=== PATIENT | male | born 1975 | race African-American/Black ===

== ENCOUNTER 2016-11-05 18:13 | Emergency (ER) | payer MEDICARE, MEDICAID ==
[~2016-11-05] VITALS: Ht 182.9 cm; Wt 100.0 kg
[~2016-11-05 18:13] MED LIST: VIST25CA PO
[2016-11-05 18:15] VITALS: BP 140/80; PULSE 99; RESP 14; TEMP 98.4; O2SAT 97
--- NOTE | 2016-11-05 20:09 | PD ---
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 For the last 2 weeks the patient has had a cough productive of yellowish sputum. He states that one month ago he was having some hemoptysis, however has not had any since then. He is complaining of some chest tightness. No fevers or chills. Emesis is nonbloody. He is also complaining of pain in his left year and diminished hearing in his left ear. He has not had a bowel movement in several days. Patient is also complaining of some blurry vision and shortness of breath. No focal neurologic deficits. The patient has an appointment with her primary care physician in 2 days where he states he will be restarted on his antiretroviral therapy. [facility] Social History Alcohol Use: Yes Tobacco Use: Yes Allergies-Medications (Allergen,Severity, Reaction): Coded Allergies: Albuterol (Verified Allergy, Intermediate, Hives, 11/05/16) shortness of breath Reported Meds & Prescriptions Reported Meds & Active Scripts Active Augmentin (Amoxicillin-Clavulanate) 875-125 mg Tab 875 Mg PO BID 7 Days not for use in CrCl <30 ml/min. Vistaril (Hydroxyzine Pamoate) 25 Mg Cap 25 Mg PO HS Review of Systems Except as stated in HPI: all other systems reviewed are Neg Physical Exam Narrative GENERAL: Well-developed, well-nourished, comfortable, no acute distress. SKIN: Warm and dry. Several tiny papules on left arm, no warmth or erythema. Well-healed surgical scar on right head which the patient states his a port where he received chemotherapy for his acute lymphoma in his neck. HEAD: Atraumatic. Normocephalic. EYES: Pupils equal and round. No scleral icterus. No injection or drainage. ENT: Mucous membranes pink and moist. NECK: Trachea midline. No JVD. No nuchal rigidity. CARDIOVASCULAR: Regular rate and rhythm. RESPIRATORY: No accessory muscle use. Clear to auscultation. Breath sounds equal bilaterally. GASTROINTESTINAL: Abdomen soft, non-tender, nondistended. MUSCULOSKELETAL: No obvious deformities. No clubbing. No cyanosis. No edema. NEUROLOGICAL: Awake and alert. No obvious cranial nerve deficits. Motor grossly within normal limits. Normal speech. No focal deficit. PSYCHIATRIC: Appropriate mood and affect; insight and judgment normal. Data Data Last Documented VS Vital Signs Date Time Temp Pulse Resp B/P Pulse Ox O2 Delivery O2 Flow Rate FiO2 11/05/16 21:20 99 Room Air 11/05/16 21:15 21 11/05/16 18:15 98.4 99 140/80 Orders Electrocardiogram (11/05/16 20:04) Ckmb (Isoenzyme) Profile (11/05/16 20:04) Complete Blood Count With Diff (11/05/16 20:04) Comprehensive Metabolic Panel (11/05/16 20:04) Prothrombin Time / Inr (Pt) (11/05/16 20:04) Act Partial Throm Time (Ptt) (11/05/16 20:04) Troponin I (11/05/16 20:04) Chest, Single Ap (11/05/16 20:04) Ecg Monitoring (11/05/16 20:04) Iv Access Insert/Monitor (11/05/16 20:04) Oximetry (11/05/16 20:04) Sodium Chloride 0.9% Flush (Ns Flush) (11/05/16 20:15) Influenzae A/B Antigen (11/05/16 20:07) Ct Brain W/O Iv Contrast(Rout) (11/05/16 ) Blood Culture (11/05/16 20:11) CKMB (11/05/16 20:55) CKMB% (11/05/16 20:55) Amoxicil-Clavulanate (Augmentin) (11/05/16 22:15) Labs Laboratory Tests Test 11/05/16 20:55 White Blood Count 4.0 TH/MM3 Red Blood Count 3.87 MIL/MM3 Hemoglobin 12.2 GM/DL Hematocrit 36.4 % Mean Corpuscular Volume 94.2 FL Mean Corpuscular Hemoglobin 31.6 PG Mean Corpuscular Hemoglobin 33.5 % Concent Red Cell Distribution Width 14.8 % Platelet Count 105 TH/MM3 Mean Platelet Volume 10.1 FL Neutrophils (%) (Auto) 55.9 % Lymphocytes (%) (Auto) 23.9 % Monocytes (%) (Auto) 10.3 % Eosinophils (%) (Auto) 9.6 % Basophils (%) (Auto) 0.3 % Neutrophils # (Auto) 2.2 TH/MM3 Lymphocytes # (Auto) 1.0 TH/MM3 Monocytes # (Auto) 0.4 TH/MM3 Eosinophils # (Auto) 0.4 TH/MM3 Basophils # (Auto) 0.0 TH/MM3 CBC Comment DIFF FINAL Differential Comment Prothrombin Time 10.5 SEC Prothromb Time International 1.0 RATIO Ratio Activated Partial 26.5 SEC Thromboplast Time Sodium Level 141 MEQ/L Potassium Level 3.7 MEQ/L Chloride Level 106 MEQ/L Carbon Dioxide Level 28.6 MEQ/L Anion Gap 6 MEQ/L Blood Urea Nitrogen 17 MG/DL Creatinine 1.21 MG/DL Estimat Glomerular Filtration 81 ML/MIN Rate Random Glucose 97 MG/DL Calcium Level 8.6 MG/DL Total Bilirubin 0.3 MG/DL Aspartate Amino Transf 17 U/L (AST/SGOT) Alanine Aminotransferase 17 U/L (ALT/SGPT) Alkaline Phosphatase 95 U/L Total Creatine Kinase 166 U/L Creatine Kinase MB 1.6 NG/ML Troponin I LESS THAN 0.02 NG/ML Total Protein 7.6 GM/DL Albumin 3.5 GM/DL [facility] Medical Decision Making Medical Screen Exam Complete: Yes Emergency Medical Condition: Yes Interpretation(s) EKG: Sinus, rate 83, normal axis, normal intervals, no acute ischemic abnormality. Differential Diagnosis Pneumonia, PCP pneumonia, influenza, viral illness, dehydration, intracranial normality Narrative Course Vital signs reviewed. CBC shows WBC 4.0, hemoglobin 12.2, hematocrit 36.4, platelets 105. CMP is unremarkable. Cardiac enzymes are negative. Chest x-ray shows no acute disease. CT head shows right ventriculostomy tube in place, no acute intracranial abnormality, sinus disease. Influenza is negative. Patient is resting comfortably. He was made aware of all findings. He will be started on Augmentin for sinusitis. He has an appointment with his primary care physician in 2 days. He is stable for discharge home with outpatient follow-up. He is informed on when to return to the emergency department. He verbalizes understanding and agreement with plan. Diagnosis Primary Impression: Sinusitis Qualified Code: J01.90 - Acute sinusitis, recurrence not specified, unspecified location Referrals: Primary Care Physician 2 days Additional Instructions: Follow-up with your primary care physician in 2 days as scheduled. Return to the emergency department forcing symptoms or any other concerns. Scripts Amoxicillin-Clavulanate (Augmentin)875-125 mg [id number] Mg PO BID 7 Days Ref 0 not for use in CrCl <30 ml/min. Prov:Lee Oliveira MD 11/05/16 Disposition: 01 DISCHARGE HOME Condition: Stable Lee Oliveira MD Nov 05, 2016 20:09
[2016-11-05] MEDS ORDERED: SODIUM CHLORIDE 0.9% FLUSH 5 ML FLUSH IVF PRN (20:15)
--- NOTE | 2016-11-05 20:34 | RADRPT ---
EXAM DATE/TIME: 11/05/2016 20:15 [facility] COMPARISON: No previous studies available for comparison. INDICATIONS : Chest pain and cough. MEDICAL HISTORY : None. SURGICAL HISTORY : None. ENCOUNTER: Initial ACUITY: 2 weeks PAIN SCORE: 5/10 LOCATION: Bilateral chest FINDINGS: A single view of the chest demonstrates the lungs to be symmetrically aerated without evidence of mas s, infiltrate or effusion. The cardiomediastinal contours are unremarkable. Osseous structures are intact. CONCLUSION: No acute disease. Jose Dean MD on November 05, 2016 at 20:33 Board Certified Radiologist. This report was verified electronically.
--- NOTE | 2016-11-05 20:41 | RADRPT ---
EXAM DATE/TIME: 11/05/2016 20:28 [facility] COMPARISON: No previous studies available for comparison. INDICATIONS : Headaches with left ear pain past 3 days. RADIATION DOSE: 44.81 CTDIvol (mGy) MEDICAL HISTORY : HIV. Lymphoma. SURGICAL HISTORY : None. ENCOUNTER: Initial ACUITY: 3 days PAIN SCALE: 2/10 LOCATION: Left cranial TECHNIQUE: Multiple contiguous axial images were obtained of the head. Using automated exposure control and adj ustment of the mA and/or kV according to patient size, radiation dose was kept as low as reasonably a chievable to obtain optimal diagnostic quality images. FINDINGS: CEREBRUM: There is a ventriculostomy tube in place with a right frontal approach with the tip seen at the right lateral ventricle. The ventricles are normal for age. No evidence of midline shift, mass lesion, he morrhage or acute infarction. No extra-axial fluid collections are seen. POSTERIOR FOSSA: The cerebellum and brainstem are intact. The 4th ventricle is midline. The cerebellopontine angle i s unremarkable. EXTRACRANIAL: The visualized portion of the orbits is intact. There is mucosal disease throughout the sinuses. SKULL: The calvaria is intact. No evidence of skull fracture. CONCLUSION: 1. Right ventriculostomy tube in place. No acute intracranial abnormality is seen. 2. Sinus disease. Jose Dean MD on November 05, 2016 at 20:38 Board Certified Radiologist. This report was verified electronically.
[2016-11-05 21:20] VITALS: O2SAT 99
[2016-11-05 21:38] LABS: AUTOMATED NEUTROPHIL # 2.2 TH/MM3 (1.8-7.7); BASOPHIL % 0.3 % (0.0-2.0); EOSINOPHIL # 0.4 TH/MM3 (0-0.4); EOSINOPHIL % 9.6 % (0.0-4.0); HEMATOCRIT 36.4 % (39.0-51.0); HEMO FLAGS DIFF FINAL; LYMPH % 23.9 % (9.0-44.0); MEAN CELL VOLUME 94.2 FL (80.0-100.0); MEAN CORPUSCULAR HEMOGLOBIN 31.6 PG (27.0-34.0); MEAN CORPUSCULAR HGB CONC 33.5 % (32.0-36.0); MONO % 10.3 % (0.0-8.0); NEUT % 55.9 % (16.0-70.0); PLATELET COUNT 105 TH/MM3 (150-450); RED BLOOD COUNT 3.87 MIL/MM3 (4.50-5.90); RED CELL DISTRIBUTION WIDTH 14.8 % (11.6-17.2)
[2016-11-05 21:45] LABS: APTT (PATIENT) 26.5 SEC (24.3-30.1); PROTHROMBIN TIME - PATIENT 10.5 SEC (9.8-11.6)
[2016-11-05 21:48] LABS: ANION GAP 6 MEQ/L (5-15); AST (GOT) 17 U/L (15-37); BICARBONATE 28.6 MEQ/L (21.0-32.0); BLOOD UREA NITROGEN 17 MG/DL (7-18); CHLORIDE 106 MEQ/L (98-107); GLOMERULAR FILTRATION RATE 81 ML/MIN (>89); POTASSIUM 3.7 MEQ/L (3.5-5.1); SODIUM (NA) 141 MEQ/L (136-145)
[2016-11-05 21:53] LABS: ALKALINE PHOSPHATASE 95 U/L (45-117); ALT (GPT) 17 U/L (12-78); CREATINE KINASE 166 U/L (39-308); TOTAL BILIRUBIN ADULT 0.3 MG/DL (0.2-1.0)
[2016-11-05 22:06] LABS: CKMB 1.6 NG/ML (0.5-3.6)
[2016-11-05] MEDS ORDERED: AUGM875T PO (22:09)
[2016-11-05] MEDS ORDERED: AMOXICILLIN/CLAVULANATE K 875 MG TAB PO ONE (22:15)
--- NOTE | 2016-11-06 08:39 | EKG ---
Date Performed: 11/05/2016 Time Performed: 21:15:02 PTAGE: 41 years EKG: Sinus rhythm NORMAL ECG NO PREVIOUS TRACING DOCTOR: Ruperto Gonzalez Interpretating Date/Time 11/06/2016 08:36:34
[2016-12-25] MEDS ORDERED: AZIT500T2 PO (10:30)
[2017-02-12] MEDS ORDERED: BACT400T PO (11:30)
[2017-02-12] MEDS ORDERED: PRED1SUS EACH EYE (11:30)
[2017-03-09] MEDS ORDERED: IPRA0.02 NEB (11:16)
== END 2016-11-05 23:17 | disposition home or self-care (01) ==
LOC: NEPB 18:13
DX: J01.90 Acute sinusitis, unspecified (principal); C83.70 Burkitt lymphoma, unspecified site; B20 Human immunodeficiency virus [HIV] disease; F10.10 Alcohol abuse, uncomplicated; Z91.14 Patient's other noncompliance with medication regimen; Z72.0 Tobacco use
CPT/HCPCS: 70450; 71010; 80053; 82550; 82552; 84484; 85025; 85610; 85730; 87040; 87804; 93005

== ENCOUNTER 2017-02-12 12:03 | Emergency (ER) | payer MEDICARE ==
[~2017-02-12] VITALS: Ht 182.9 cm; Wt 100.0 kg
[~2017-02-12 12:03] MED LIST changes: +AZIT500T2 PO; +BACT400T PO; +PRED1SUS EACH EYE; -VIST25CA PO
[2017-02-12 12:05] VITALS: BP 113/72; PULSE 112; RESP 20; TEMP 97.6; O2SAT 99
[2017-02-12] MEDS ORDERED: RESP: BUDESONIDE 0.5 MG/2 ML NEB NEB ONE (12:45)
[2017-02-12] MEDS ORDERED: SODIUM CHLORIDE 0.9% FLUSH 10 ML FLUSH IVF PRN (12:45)
[2017-02-12] MEDS ORDERED: methylPREDNISolone SOD SUCC 125 MG/2 ML VIAL IVP ONE (12:45)
[2017-02-12] MEDS ORDERED: RESP: IPRATROPIUM 0.5 MG/2.5 ML NEB NEB ONE (12:45)
--- NOTE | 2017-02-12 12:51 | PD ---
HPI Chief Complaint: Cold / Flu Symptoms Time Seen by Provider: 12:48 Travel History International Travel<30 days: No Contact w/Intl Traveler<30days: No Traveled to known affect area: No History of Present Illness HPI Patient's 41-year-old male presenting to emergency for evaluation of cough, chest tightness and congestion. Patient states his cough has been going on for 1 months however for the last week and a half he has been coughing up yellow "globs" of mucous in his chest has felt tight. Patient reports fevers last week , shortness of breath, decreased appetite, vomiting when he eats a meal, he is tolerating oral fluid intake. He denies any diarrhea but states he's felt constipated. He also reports that his right ear feels clogged. He has left leg pain that has been ongoing since 2013. Patient's past medical history is significant for Burkitt's lymphoma, he is HIV positive currently off of antiviral therapy for the last month due to lack of follow-up with his infectious disease doctor. PFSH Past Medical History Autoimmune Disease: Yes (HIV positive) Cancer: Yes (Burkitt's LYMPHOMA) Chemotherapy: Yes (2013 for burketts lymphoma) Diminished Hearing: No Past Surgical History Neurologic Surgery: Yes ([facility]) Social History Alcohol Use: Yes (RARE) Tobacco Use: Yes (2-3 CIGARETTES DAILY) Substance Use: Yes (marijuana) Allergies-Medications (Allergen,Severity, Reaction): Coded Allergies: Albuterol (Verified Allergy, Intermediate, Hives, 02/12/17) shortness of breath Reported Meds & Prescriptions Reported Meds & Active Scripts Active Reported Pred Forte Opth 1% (Prednisolone Acetate Opth 1%) 1% Susp 1 Drop EACH EYE QID Bactrim (Sulfamethoxazole-Trimethoprim) 400-80 Mg Tab 1 Tab PO WEEKLY Review of Systems Except as stated in HPI: all other systems reviewed are Neg General / Constitutional: Positive: Fever Eyes: No: Blurred Vision HENT: Positive: Earache (pressure), No: Headaches, Lightheadedness Cardiovascular: Positive: Chest Pain or Discomfort, Dyspnea on exertion Respiratory: Positive: Cough, Shortness of Breath Gastrointestinal: Positive: Nausea, Vomiting, Constipation, No: Abdominal Pain Genitourinary: No: Dysuria Neurologic: No: Dizziness, Syncope Physical Exam Narrative GENERAL: Well-developed, well-nourished, alert male. Resting comfortably in no acute distress. SKIN: Focused skin assessment warm/dry. HEAD: Atraumatic. Normocephalic. EYES: Pupils equal and round. No scleral icterus. No injection or drainage. ENT: No nasal bleeding or discharge. Mucous membranes pink and moist. NECK: Trachea midline. No JVD. CARDIOVASCULAR: Regular rate and rhythm. No murmur appreciated. RESPIRATORY: No accessory muscle use. Diminished in bases with inspiratory and expiratory wheezing throughout GASTROINTESTINAL: Abdomen soft, non-tender, nondistended. Hepatic and splenic margins not palpable. MUSCULOSKELETAL: No obvious deformities. No clubbing. No cyanosis. No edema. NEUROLOGICAL: Awake and alert. No obvious cranial nerve deficits. Motor grossly within normal limits. Normal speech. PSYCHIATRIC: Appropriate mood and affect; insight and judgment normal. Data Data Last Documented VS Vital Signs Date Time Temp Pulse Resp B/P Pulse Ox O2 Delivery O2 Flow Rate FiO2 02/12/17 13:02 100 Room Air 02/12/17 13:00 77 16 119/73 02/12/17 12:05 97.6 Orders Complete Blood Count With Diff (02/12/17 12:35) Comprehensive Metabolic Panel (02/12/17 12:35) B-Type Natriuretic Peptide (02/12/17 12:35) Act Partial Throm Time (Ptt) (02/12/17 12:35) Prothrombin Time / Inr (Pt) (02/12/17 12:35) Magnesium (Mg) (02/12/17 12:35) Ckmb (Isoenzyme) Profile (02/12/17 12:35) Troponin I (02/12/17 12:35) Blood Culture (02/12/17 12:35) Iv Access Insert/Monitor (02/12/17 12:35) Ecg Monitoring (02/12/17 12:35) Oximetry (02/12/17 12:35) Oxygen Administration (02/12/17 12:35) Chest, Single Ap (02/12/17 12:35) Sodium Chloride 0.9% Flush (Ns Flush) (02/12/17 12:45) Methylprednisolone So Succ Inj (Solumedr (02/12/17 12:45) Lactic Acid (02/12/17 12:35) Ipratropium Neb (Atrovent Neb) (02/12/17 12:45) Budesonide Neb (Pulmicort Respule Neb) (02/12/17 12:45) Abdomen, Kub Only (02/12/17 ) CKMB (02/12/17 12:50) CKMB% (02/12/17 12:50) Labs Laboratory Tests Test 02/12/17 12:50 White Blood Count 2.5 TH/MM3 Red Blood Count 3.74 MIL/MM3 Hemoglobin 12.0 GM/DL Hematocrit 35.4 % Mean Corpuscular Volume 94.5 FL Mean Corpuscular Hemoglobin 32.0 PG Mean Corpuscular Hemoglobin 33.9 % Concent Red Cell Distribution Width 15.4 % Platelet Count 85 TH/MM3 Mean Platelet Volume 10.5 FL Neutrophils (%) (Auto) 39.9 % Lymphocytes (%) (Auto) 25.5 % Monocytes (%) (Auto) 15.3 % Eosinophils (%) (Auto) 18.8 % Basophils (%) (Auto) 0.5 % Neutrophils # (Auto) 1.0 TH/MM3 Lymphocytes # (Auto) 0.6 TH/MM3 Monocytes # (Auto) 0.4 TH/MM3 Eosinophils # (Auto) 0.5 TH/MM3 Basophils # (Auto) 0.0 TH/MM3 CBC Comment AUTO DIFF Differential Comment AUTO DIFF CONFIRMED Platelet Estimate LOW Platelet Morphology Comment ENLARGED Ovalocytes 1+ Prothrombin Time 10.6 SEC Prothromb Time International 1.0 RATIO Ratio Activated Partial 32.0 SEC Thromboplast Time Sodium Level 136 MEQ/L Potassium Level 4.1 MEQ/L Chloride Level 104 MEQ/L Carbon Dioxide Level 26.0 MEQ/L Anion Gap 6 MEQ/L Blood Urea Nitrogen 25 MG/DL Creatinine 1.08 MG/DL Estimat Glomerular Filtration 92 ML/MIN Rate Random Glucose 79 MG/DL Lactic Acid Level 0.9 mmol/L Calcium Level 9.3 MG/DL Magnesium Level 2.3 MG/DL Total Bilirubin 0.4 MG/DL Aspartate Amino Transf 20 U/L (AST/SGOT) Alanine Aminotransferase 18 U/L (ALT/SGPT) Alkaline Phosphatase 93 U/L Total Creatine Kinase 234 U/L Creatine Kinase MB 2.4 NG/ML Troponin I LESS THAN 0.02 NG/ML B-Type Natriuretic Peptide LESS THAN 2 PG/ML Total Protein 8.6 GM/DL Albumin 4.2 GM/DL MDM Medical Decision Making Medical Screen Exam Complete: Yes Emergency Medical Condition: Yes Interpretation(s) Last Impressions Chest X-Ray 02/12/17 1235 Signed Impressions: Service Date/Time: January 12:42 - CONCLUSION: No acute cardiopulmonary abnormality is identified. Jose Mathur MD Vital Signs Date Time Temp Pulse Resp B/P Pulse Ox O2 Delivery O2 Flow Rate FiO2 02/12/17 13:02 100 Room Air 02/12/17 13:00 77 16 119/73 100 Room Air 02/12/17 13:00 100 Room Air 02/12/17 12:05 97.6 112 20 113/72 99 Room Air Differential Diagnosis Pneumonia versus bronchitis versus electrolyte abnormality versus other Narrative Course Patient's 41-year-old male presented to emergency department evaluation of chest tightness and productive cough. IV access established, labs and imaging ordered and pending. Patient's vital signs are stable. Chest x-ray shows no acute disease CBC shows pancytopenia with a white blood cell count of 2.5, previous value was 4.9 in November of this year Lactic acid 0.9, chemistries unremarkable, troponin is less than 0.02 Coags are unremarkable. She reports improvement in his chest tightness after administration of IV Solu- Medrol and nebulizer treatments. Patient will be discharged home with azithromycin, cefdinir, prednisone. He is advised to follow-up with his primary care provider in the next 1-2 days. He was strongly advised to return to emergency department for any new or worsening symptoms. He verbalized understanding of instructions. Patient is stable for discharge. Diagnosis Primary Impression: Bronchitis Additional Impression: HIV (human immunodeficiency virus infection) Referrals: Michelle Jimenez 2 days [facility] Dept. To restart antiviral medication Patient Instructions: Acute Bronchitis (ED), General Instructions Additional Instructions: Follow-up with your primary care provider in one to 2 days Follow-up with your infectious disease provider to restart antivirals Take medications as directed Return to emergency department for any new or worsening symptoms Med/Other Pt SpecificInfo: Prescription(s) given Scripts Prednisone 20 Mg Tab20 Mg PO BID 5 Days Ref 0 Prov:Tamara Suarez 02/12/17 Cefdinir 300 Mg [id number] Mg PO BID 10 Days Ref 0 Prov:Tamara Suarez 02/12/17 Azithromycin 250 Mg [id number] Mg PO DIRECTED #6 TAB Ref 0 Take 2 tabs (500 mg) on day 1 then 1 tab daily x 4 days. Prov:Tamara Suarez 02/12/17 Disposition: 01 DISCHARGE HOME Condition: Stable Tamara Suarez February 12, 2017 12:51
--- NOTE | 2017-02-12 12:56 | RADRPT ---
EXAM DATE/TIME: 02/12/2017 12:42 [facility] COMPARISON: CHEST SINGLE AP, November 05, 2016, 20:15. INDICATIONS : Short of breath MEDICAL HISTORY : None. SURGICAL HISTORY : None. ENCOUNTER: Initial ACUITY: 3 days PAIN SCORE: 0/10 LOCATION: Bilateral chest FINDINGS: Portable AP view of the chest demonstrates a normal-sized cardiac silhouette. No effusion, consolidat ion, or pneumothorax is visualized. The bones and soft tissues demonstrate no acute abnormality. Ther e is mild atelectasis at the lung bases. CONCLUSION: No acute cardiopulmonary abnormality is identified. Jose Mathur MD on February 12, 2017 at 12:53 Board Certified Radiologist. This report was verified electronically.
[2017-02-12 13:00] VITALS: BP 119/73; PULSE 77; RESP 16; O2SAT 100
[2017-02-12 13:13] LABS: BASOPHIL % 0.5 % (0.0-2.0); EOSINOPHIL # 0.5 TH/MM3 (0-0.4); EOSINOPHIL % 18.8 % (0.0-4.0); HEMATOCRIT 35.4 % (39.0-51.0); LYMPH % 25.5 % (9.0-44.0); LYMPHOCYTE # 0.6 TH/MM3 (1.0-4.8); MEAN CELL VOLUME 94.5 FL (80.0-100.0); MEAN CORPUSCULAR HGB CONC 33.9 % (32.0-36.0); MONO % 15.3 % (0.0-8.0); NEUT % 39.9 % (16.0-70.0); PLATELET COUNT 85 TH/MM3 (150-450); RED BLOOD COUNT 3.74 MIL/MM3 (4.50-5.90); RED CELL DISTRIBUTION WIDTH 15.4 % (11.6-17.2); WHITE BLOOD COUNT 2.5 TH/MM3 (4.0-11.0)
[2017-02-12 13:16] LABS: PROTHROMBIN TIME - PATIENT 10.6 SEC (9.8-11.6)
[2017-02-12 13:21] LABS: HEMO FLAGS AUTO DIFF
[2017-02-12 13:31] LABS: ALT (GPT) 18 U/L (12-78); ANION GAP 6 MEQ/L (5-15); AST (GOT) 20 U/L (15-37); BLOOD UREA NITROGEN 25 MG/DL (7-18); CHLORIDE 104 MEQ/L (98-107); GLOMERULAR FILTRATION RATE 92 ML/MIN (>89); MAGNESIUM 2.3 MG/DL (1.5-2.5); POTASSIUM 4.1 MEQ/L (3.5-5.1); SODIUM (NA) 136 MEQ/L (136-145)
[2017-02-12 13:35] LABS: ALKALINE PHOSPHATASE 93 U/L (45-117); CREATINE KINASE 234 U/L (39-308); TOTAL BILIRUBIN ADULT 0.4 MG/DL (0.2-1.0)
[2017-02-12 13:47] LABS: CKMB 2.4 NG/ML (0.5-3.6)
--- NOTE | 2017-02-12 13:48 | RADRPT ---
EXAM DATE/TIME: 02/12/2017 13:26 [facility] COMPARISON: No previous studies available for comparison. INDICATIONS : Nausea MEDICAL HISTORY : HIV Lymphoma. SURGICAL HISTORY : None. ENCOUNTER: Initial ACUITY: 3 days PAIN SCORE: 1/10 LOCATION: Abdomen FINDINGS: Supine view of the abdomen was performed. The abdominal bowel gas pattern is normal. No abnormal ma sses, calcifications, or organomegaly is seen. The osseous structures are unremarkable. CONCLUSION: 1. No acute findings. Mild constipation. Jj Arenas MD on February 12, 2017 at 13:44 Board Certified Radiologist. This report was verified electronically.
[2017-02-12 13:54] LABS: OVALOCYTES 1+ (NORMAL); PLATELET ESTIMATE SMEAR LOW (NORMAL); PLATELET MORPHOLOGY ENLARGED (NORMAL); SCAN/DIFF AUTO DIFF CONFIRMED
[2017-02-12 14:40] VITALS: BP 119/73; PULSE 72; RESP 16; O2SAT 98
[2017-02-12] MEDS ORDERED: AZIT250T3 PO (14:40)
[2017-02-12] MEDS ORDERED: CEFD300C PO (14:40)
[2017-02-12] MEDS ORDERED: PRED20 PO (14:40)
[2017-02-12 16:14] VITALS: BP 132/65
[2017-03-09] MEDS ORDERED: IPRA0.02 NEB (11:16)
== END 2017-02-12 16:24 | disposition home or self-care (01) ==
LOC: NEPE 12:03
DX: B20 Human immunodeficiency virus [HIV] disease (principal); J40 Bronchitis, not specified as acute or chronic; F17.210 Nicotine dependence, cigarettes, uncomplicated; K59.00 Constipation, unspecified; R06.02 Shortness of breath; R11.2 Nausea with vomiting, unspecified
CPT/HCPCS: 71010; 74000; 80053; 82550; 82552; 83605; 83735; 83880; 84484; 85025; 85610; 85730; 87040; 94664; 96374; 99284; J2930; J7626; J7644

== ENCOUNTER 2017-05-20 20:43 | Observation (INO) | payer MEDICARE, MEDICAID ==
[~2017-05-20] VITALS: Ht 180.3 cm; Wt 80.0 kg
[~2017-05-20 20:43] MED LIST changes: -AZIT500T2 PO; -BACT400T PO; +GABA100C4 PO; +IPRA0.02 NEB; +LIFI1DRO EACH EYE; +MUCI30TA2 PO; -PRED1SUS EACH EYE; +TRAM50TA PO
[2017-05-20 20:58] VITALS: BP 134/77; PULSE 98; RESP 22; TEMP 99; O2SAT 99
[2017-05-20] MEDS ORDERED: GABA100C4 PO (21:05)
[2017-05-20] MEDS ORDERED: SODIUM CHLORIDE 0.9% FLUSH 10 ML FLUSH IVF PRN (21:15)
[2017-05-20] MEDS ORDERED: ASPIRIN 325 MG TAB PO ONE (21:15)
[2017-05-20] MEDS ORDERED: ALUMINUM/MAGNESIUM/SIMETH 30 ML CUP PO ONE (21:15)
[2017-05-20] MEDS ORDERED: LIDOCAINE VISCOUS 2% SOLN 15 ML UDC PO ONE (21:15)
--- NOTE | 2017-05-20 21:15 | PD ---
HPI Chief Complaint: Respiratory Symptoms Time Seen by Provider: 21:03 Travel History International Travel<30 days: No Contact w/Intl Traveler<30days: No Traveled to known affect area: No History of Present Illness HPI This patient complains of chest pain. Location is center sternum. Duration about 10 days. Feels like a heaviness and a pressure. Not exertional. Currently pain-free. He also has a separate different pain when he swallows that is sharp pain that lasts a few seconds when he swallows and resolves. Has history of lymphoma and HIV. Had a negative PET scan 4 months ago. No longer on chemotherapy. Denies fever, is a smoker and has a chronic cough. No change in that. Does have some clear runny nose. No alleviating factors. Severity is moderate PFSH Past Medical History Autoimmune Disease: Yes (HIV positive) Cancer: Yes (Burkitt's LYMPHOMA) Chemotherapy: Yes (2013 for burketts lymphoma) Diminished Hearing: No Past Surgical History Neurologic Surgery: Yes ([place]) Social History Alcohol Use: Yes (RARE) Tobacco Use: Yes (2-3 CIGARETTES DAILY) Substance Use: Yes (marijuana) Allergies-Medications (Allergen,Severity, Reaction): Coded Allergies: albuterol (Unverified Allergy, Intermediate, Hives, 05/07/17) shortness of breath Reported Meds & Prescriptions Reported Meds & Active Scripts Active Ipratropium Neb (Ipratropium [place]) 0.5 Mg/2.5 Ml Amp 0.5 Mg NEB Q6HR NEB PRN Reported Gabapentin 100 Mg Cap 100 Mg PO BID Tramadol (Tramadol HCl) 50 Mg Tab 50 Mg PO DAILY PRN Xiidra Opth Drops (Lifitegrast Opth Drops) 5% Drops 1 Drop EACH EYE QOD Review of Systems General / Constitutional: No: Fever Eyes: No: Visual changes HENT: Positive: Rhinorrhea, No: Headaches Cardiovascular: Positive: Chest Pain or Discomfort Respiratory: No: Shortness of Breath Gastrointestinal: No: Abdominal Pain Genitourinary: No: Dysuria Musculoskeletal: No: Pain Skin: No Rash Neurologic: No: Weakness Psychiatric: No: Depression Endocrine: No: Polydipsia Hematologic/Lymphatic: No: Easy Bruising Physical Exam Narrative GENERAL: Well-nourished, well-developed patient in no apparent distress. SKIN: Focused skin assessment reveals no rash and nodules. Skin is Warm and dry. HEAD: Atraumatic. Normocephalic. EYES: Pupils equal and round. No scleral icterus. No injection or drainage. ENT: No nasal bleeding or discharge. Mucous membranes pink and moist. Oral cavity is clear, no obvious thrush lesions NECK: Trachea midline. No JVD. No meningeal signs CARDIOVASCULAR: Regular rate and rhythm. No murmur appreciated. RESPIRATORY: No accessory muscle use. Clear to auscultation. Breath sounds equal bilaterally. GASTROINTESTINAL: Abdomen soft, non-tender, nondistended. Hepatic and splenic margins not palpable. MUSCULOSKELETAL: No obvious deformities. No clubbing. No cyanosis. No edema. NEUROLOGICAL: Awake and alert. No obvious cranial nerve deficits. Motor grossly within normal limits. Normal speech. PSYCHIATRIC: Appropriate mood and affect; insight and judgment normal. Data Data Last Documented VS Vital Signs Date Time Temp Pulse Resp B/P (MAP) Pulse Ox O2 Delivery O2 Flow Rate FiO2 05/20/17 22:28 95 20 134/77 (96) 98 Room Air 05/20/17 20:58 99.0 Orders Orders Electrocardiogram (05/20/17 21:10) Basic Metabolic Panel (Bmp) (05/20/17 21:10) Ckmb (Isoenzyme) Profile (05/20/17 21:10) Complete Blood Count With Diff (05/20/17 21:10) Prothrombin Time / Inr (Pt) (05/20/17 21:10) Act Partial Throm Time (Ptt) (05/20/17 21:10) Troponin I (05/20/17 21:10) Chest, Single Ap (05/20/17 21:10) Ecg Monitoring (05/20/17 21:10) Iv Access Insert/Monitor (05/20/17 21:10) Oximetry (05/20/17 21:10) Aspirin (Aspirin) (05/20/17 21:15) Sodium Chloride 0.9% Flush (Ns Flush) (05/20/17 21:15) Al-Mag Hy-Si 40-40-4 Mg/Ml Liq (Mag-Al P (05/20/17 21:15) Lidocaine 2% Viscous (Xylocaine 2% Visco (05/20/17 21:15) CKMB (05/20/17 21:13) CKMB% (05/20/17 21:13) Admit Order (Ed Use Only) (05/20/17 23:22) Labs Laboratory Tests Test 05/20/17 21:13 White Blood Count 5.0 TH/MM3 Red Blood Count 3.16 MIL/MM3 Hemoglobin 9.8 GM/DL Hematocrit 31.1 % Mean Corpuscular Volume 98.5 FL Mean Corpuscular Hemoglobin 31.1 PG Mean Corpuscular Hemoglobin Concent 31.5 % Red Cell Distribution Width 15.0 % Platelet Count 82 TH/MM3 Mean Platelet Volume 9.9 FL Neutrophils (%) (Auto) 49.4 % Lymphocytes (%) (Auto) 22.9 % Monocytes (%) (Auto) 14.7 % Eosinophils (%) (Auto) 12.9 % Basophils (%) (Auto) 0.1 % Neutrophils # (Auto) 2.4 TH/MM3 Lymphocytes # (Auto) 1.1 TH/MM3 Monocytes # (Auto) 0.7 TH/MM3 Eosinophils # (Auto) 0.6 TH/MM3 Basophils # (Auto) 0.0 TH/MM3 CBC Comment AUTO DIFF Differential Total Cells Counted 100 Neutrophils % (Manual) 59 % Band Neutrophils % 6 % Lymphocytes % 17 % Monocytes % 15 % Eosinophils % 3 % Neutrophils # (Manual) 3.3 TH/MM3 Differential Comment FINAL DIFF MANUAL Platelet Estimate LOW Platelet Morphology Comment ENLARGED Ovalocytes 1+ Prothrombin Time 10.4 SEC Prothromb Time International Ratio 0.9 RATIO Activated Partial Thromboplast Time 28.5 SEC Blood Urea Nitrogen 17 MG/DL Creatinine 0.94 MG/DL Random Glucose 82 MG/DL Calcium Level 8.9 MG/DL Sodium Level 142 MEQ/L Potassium Level 4.0 MEQ/L Chloride Level 107 MEQ/L Carbon Dioxide Level 27.3 MEQ/L Anion Gap 8 MEQ/L Estimat Glomerular Filtration Rate 108 ML/MIN Total Creatine Kinase 146 U/L Creatine Kinase MB 1.8 NG/ML Troponin I LESS THAN 0.02 NG/ML [facility] Medical Decision Making Medical Screen Exam Complete: Yes Emergency Medical Condition: Yes Medical Record Reviewed: Yes Differential Diagnosis Differential diagnosis includes [place], angina, pericarditis, pleurisy, GERD, anxiety, esophagitis Narrative Course I have reviewed the patient's electronic medical record. Reviewed his oncologist note from earlier this year. Reviewed his chest x-ray from 1 week ago which was normal IV placed I reviewed the EKG which shows sinus rhythm but no acute ST elevation I reviewed the chest x-ray which shows nothing emergent Extended cardiac monitoring shows sinus rhythm without ectopy CBC shows thrombocytopenia otherwise normal Metabolic profile is normal CK is normal Troponin is normal Coagulation studies are normal I gave him an aspirin and a trial of Maalox/lidocaine Patient's chest pain should be evaluated in a 42-year-old smoker. However given his HIV and lymphoma history I don't think he makes a good chest pain Center candidate. I reviewed with Dr. Webber who will 23 hour observation on telemetry to rule out cardiac cause of his symptoms Diagnosis Primary Impression: Chest pain in adult Additional Impressions: HIV disease Burkitt lymphoma Qualified Codes: C83.70 - Burkitt lymphoma, unspecified site Admitting Information Admitting Physician Requests: Observation Eladio Benedict MD May 20, 2017 21:15
[2017-05-20 21:21] VITALS: RESP 20; O2SAT 99
[2017-05-20 21:38] LABS: AUTOMATED NEUTROPHIL # 2.4 TH/MM3 (1.8-7.7); BASOPHIL % 0.1 % (0.0-2.0); EOSINOPHIL # 0.6 TH/MM3 (0-0.4); EOSINOPHIL % 12.9 % (0.0-4.0); HEMATOCRIT 31.1 % (39.0-51.0); LYMPH % 22.9 % (9.0-44.0); LYMPHOCYTE # 1.1 TH/MM3 (1.0-4.8); MEAN CELL VOLUME 98.5 FL (80.0-100.0); MEAN CORPUSCULAR HEMOGLOBIN 31.1 PG (27.0-34.0); MEAN CORPUSCULAR HGB CONC 31.5 % (32.0-36.0); MONO % 14.7 % (0.0-8.0); NEUT % 49.4 % (16.0-70.0); PLATELET COUNT 82 TH/MM3 (150-450); RED BLOOD COUNT 3.16 MIL/MM3 (4.50-5.90)
[2017-05-20 21:41] LABS: HEMO FLAGS AUTO DIFF
[2017-05-20 21:52] LABS: ANION GAP 8 MEQ/L (5-15); APTT (PATIENT) 28.5 SEC (24.3-30.1); BICARBONATE 27.3 MEQ/L (21.0-32.0); BLOOD UREA NITROGEN 17 MG/DL (7-18); CHLORIDE 107 MEQ/L (98-107); GLOMERULAR FILTRATION RATE 108 ML/MIN (>89); INTERNATIONAL NORMALIZED RATIO 0.9 RATIO; PROTHROMBIN TIME - PATIENT 10.4 SEC (9.8-11.6); SODIUM (NA) 142 MEQ/L (136-145)
[2017-05-20 21:56] LABS: CREATINE KINASE 146 U/L (39-308)
--- NOTE | 2017-05-20 22:07 | RADRPT ---
EXAM DATE/TIME: 05/20/2017 21:37 [place] COMPARISON: CHEST SINGLE AP, February 12, 2017, 12:42. INDICATIONS : Short of breath and chest pain for a week and half. MEDICAL HISTORY : HIV. Lymphoma. SURGICAL HISTORY : None. ENCOUNTER: Initial ACUITY: 1 week PAIN SCORE: 4/10 LOCATION: Bilateral chest FINDINGS: A single view of the chest demonstrates the lungs to be symmetrically aerated without evidence of mas s, infiltrate or effusion. The cardiomediastinal contours are unremarkable. Osseous structures are intact. CONCLUSION: No acute disease. Jose Dean MD on May 20, 2017 at 22:05 Board Certified Radiologist. This report was verified electronically.
[2017-05-20 22:09] LABS: CKMB 1.8 NG/ML (0.5-3.6)
[2017-05-20 22:28] VITALS: BP 134/77; PULSE 95; RESP 20; O2SAT 98
[2017-05-20 22:40] LABS: BANDS 6 % (0-6); EOSINOPHILS 3 % (0-4); NEUTROPHIL # MANUAL DIFF 3.3 TH/MM3 (1.8-7.7); PLATELET ESTIMATE SMEAR LOW (NORMAL); POLYS (SEG NEUTROPHILS) 59 % (16-70); SCAN/DIFF FINAL DIFF MANUAL; WBC DIFF SAMPLE 100
[2017-05-20 22:41] LABS: PLATELET MORPHOLOGY ENLARGED (NORMAL)
[2017-05-20 22:42] LABS: OVALOCYTES 1+ (NORMAL)
[2017-05-21] VITALS (11 sets, daily range): BP systolic 102–148; BP diastolic 55–79; PULSE 69–88; RESP 16–18; TEMP 97.8–98.4; O2SAT 97–100
[2017-05-21] MEDS ORDERED: SODIUM CHLORIDE 0.9% FLUSH 10 ML FLUSH IV FLUSH PRN (00:30)
[2017-05-21] MEDS ORDERED: NALOXONE HCL 0.4 MG/ML AMP IV PRN (00:30)
--- NOTE | 2017-05-21 03:13 | HHI.HP ---
[facility] Service [facility] Primary Care Physician JOO Guadarrama Admission Diagnosis chest pain Diagnoses: Chief Complaint: chest pressure and trouble swallowing Travel History International Travel<30 Days: No Contact w/Intl Traveler <30 Da: No Traveled to Known Affected Are: No History of Present Illness Written by JOO Gutierrez acting as scribe for [Lawanda] on 05/21/17 at 02: 58. 42 y/o male with a history of HIV, Burkitt lymphoma last chemo in 2014, pre diabetic and neuropathy presented to the ED with complaints of chest pain for 10 days. He states for the last 10 days he has been having episodes of chest pressure and if feels like someone is sitting on his chest, with associated shortness of breath and difficultly swallowing. He states he thought it was gas so he walked to the store for medication and when he got back home he felt the pain and shortness of breath was increased. He states the pain is 4-5 times a day and more so when he swallows food and burps. He denies any radiating pain to his arm or jaw. He states he feels like the food is stuck, and has only been able to drink mostly liquids. He states on Thursday he vomited because he was forcing himself to eat but that was the only time. He has also been constipated for 2 weeks but had a bowel movement yesterday. He has not been on HIV medication for the last 6 months, he is currently following outpatient to be restarted. Review of Systems Except as stated in HPI: all other systems reviewed are Neg Past Family Social History Past Medical History HIV Lymphoma, no longer on chemo Neuropathy Past Surgical History Bur holes Alf port Reported Medications Reported Meds & Active Scripts Active Ipratropium Neb (Ipratropium [place]) 0.5 Mg/2.5 Ml Amp 0.5 Mg NEB Q6HR NEB PRN Reported Gabapentin 100 Mg Cap 100 Mg PO BID Tramadol (Tramadol HCl) 50 Mg Tab 50 Mg PO DAILY PRN Xiidra Opth Drops (Lifitegrast Opth Drops) 5% Drops 1 Drop EACH EYE QOD Allergies: Coded Allergies: albuterol (Unverified Allergy, Intermediate, Hives, 05/07/17) shortness of breath Active Ordered Medications Current Medications Medications (Trade) Dose Ordered Sig/Braulio Route Start Time Stop Time Status Last Admin (NS Flush) 2 ml UNSCH PRN IV FLUSH 05/21/17 00:30 (NS Flush) 2 ml BID IV FLUSH 05/21/17 09:00 (Narcan Inj) 0.4 mg UNSCH PRN IV 05/21/17 00:30 Family History Patient denies any family history, no heart disease or cancer. Social History Tobacco use: 2-3 cigs a day Alcohol use: Denies Illicit drug use: Marijuana Physical Exam Vital Signs Vital Signs Date Time Temp Pulse Resp B/P (MAP) Pulse Ox O2 Delivery O2 Flow Rate FiO2 05/21/17 02:23 98.4 82 18 102/57 (72) 99 05/21/17 01:45 87 16 148/78 (101) 99 Room Air 05/20/17 22:28 95 20 134/77 (96) 98 Room Air 05/20/17 21:21 20 99 05/20/17 21:06 100 20 100 Room Air 05/20/17 20:58 99.0 98 22 134/77 (96) 99 Physical Exam GENERAL: This is a well-nourished, well-developed patient, in no apparent distress. SKIN: No rashes, ecchymoses or lesions. Cool and dry. HEAD: Atraumatic. Normocephalic. EYES: Pupils equal round and reactive. ENT: Nose without bleeding, purulent drainage or septal hematoma. Airway patent. NECK: Trachea midline. No JVD or lymphadenopathy. CARDIOVASCULAR: Regular rate and rhythm without murmurs, gallops, or rubs. RESPIRATORY: Clear to auscultation. Breath sounds equal bilaterally. No wheezes , rales, or rhonchi. GASTROINTESTINAL: Abdomen soft, non-tender, nondistended. No hepato-splenomegaly , or palpable masses. No guarding. MUSCULOSKELETAL: Extremities without clubbing, cyanosis, or edema. No joint tenderness, effusion, or edema noted. No calf tenderness. NEUROLOGICAL: Awake and alert. Motor and sensory grossly within normal limits. Normal speech. Laboratory Laboratory Tests Test 05/20/17 21:13 05/21/17 02:31 White Blood Count 5.0 Red Blood Count 3.16 Hemoglobin 9.8 Hematocrit 31.1 Mean Corpuscular Volume 98.5 Mean Corpuscular Hemoglobin 31.1 Mean Corpuscular Hemoglobin Concent 31.5 Red Cell Distribution Width 15.0 Platelet Count 82 Mean Platelet Volume 9.9 Neutrophils (%) (Auto) 49.4 Lymphocytes (%) (Auto) 22.9 Monocytes (%) (Auto) 14.7 Eosinophils (%) (Auto) 12.9 Basophils (%) (Auto) 0.1 Neutrophils # (Auto) 2.4 Lymphocytes # (Auto) 1.1 Monocytes # (Auto) 0.7 Eosinophils # (Auto) 0.6 Basophils # (Auto) 0.0 CBC Comment AUTO DIFF Differential Total Cells Counted 100 Neutrophils % (Manual) 59 Band Neutrophils % 6 Lymphocytes % 17 Monocytes % 15 Eosinophils % 3 Neutrophils # (Manual) 3.3 Differential Comment FINAL DIFF MANUAL Platelet Estimate LOW Platelet Morphology Comment ENLARGED Ovalocytes 1+ Prothrombin Time 10.4 Prothromb Time International Ratio 0.9 Activated Partial Thromboplast Time 28.5 Blood Urea Nitrogen 17 Creatinine 0.94 Random Glucose 82 Calcium Level 8.9 Sodium Level 142 Potassium Level 4.0 Chloride Level 107 Carbon Dioxide Level 27.3 Anion Gap 8 Estimat Glomerular Filtration Rate 108 Total Creatine Kinase 146 Creatine Kinase MB 1.8 Troponin I LESS THAN 0.02 Result Diagram: 05/20/17211205/20/172112 Imaging Last Impressions Chest X-Ray 05/20/172109 Signed Impressions: Service Date/Time: Saturday, May 20, 2017 21:37 - CONCLUSION: No acute disease. MD Codie Caicedoi VTE Risk Assessment Caprini VTE Risk Assessment: No/Low Risk (score <= 1) Caprini Risk Assessment Model Point Value = 1 Point Value = 2 Point Value = 3 Point Value = 5 Age 41-60 Minor surgery BMI > 25 kg/m2 Swollen legs Varicose veins or History of unexplained or recurrent spontaneous Oral contraceptives or hormone replacement Sepsis (< 1 month) Serious lung disease, including pneumonia (< 1 month) Abnormal pulmonary function Acute myocardial infarction Congestive heart failure (< 1 month) History of inflammatory bowel disease Medical patient at bed rest Age 61-74 Arthroscopic surgery Major open surgery (> 45 min) Laparoscopic surgery (> 45 min) Malignancy Confined to bed (> 72 hours) Immobilizing plaster cast Central venous access Age >= 75 History of VTE Family history of VTE Factor V Leiden Prothrombin [id number] Lupus anticoagulant Anticardiolipin antibodies Elevated serum homocysteine Heparin-induced thrombocytopenia Other congenital or acquired thrombophilia Stroke (< 1 month) Elective arthroplasty Hip, pelvis, or leg fracture Acute spinal cord injury (< 1 month) Prophylaxis Regimen Total Risk Factor Score Risk Level Prophylaxis Regimen 0-1 Low Early ambulation 2 Moderate Order ONE of the following: *Sequential Compression Device (SCD) *Heparin 5000 units SQ BID 3-4 Higher Order ONE of the following medications: *Heparin 5000 units SQ TID *Enoxaparin/Lovenox 40 mg SQ daily (WT < 150 kg, CrCl > 30 mL/min) *Enoxaparin/Lovenox 30 mg SQ daily (WT < 150 kg, CrCl > 10-29 mL/min) *Enoxaparin/Lovenox 30 mg SQ BID (WT < 150 kg, CrCl > 30 mL/min) AND/OR *Sequential Compression Device (SCD) 5 or more Highest Order ONE of the following medications: *Heparin 5000 units SQ TID (Preferred with Epidurals) *Enoxaparin/Lovenox 40 mg SQ daily (WT < 150 kg, CrCl > 30 mL/min) *Enoxaparin/Lovenox 30 mg SQ daily (WT < 150 kg, CrCl > 10-29 mL/min) *Enoxaparin/Lovenox 30 mg SQ BID (WT < 150 kg, CrCl > 30 mL/min) AND *Sequential Compression Device (SCD) Assessment and Plan Problem List: (1) Chest pain ICD Code: R07.9 - Chest pain, unspecified Status: Acute (2) Dysphagia ICD Code: R13.10 - Dysphagia, unspecified Status: Acute Assessment and Plan 42 y/o male with a history of HIV, Burkitt lymphoma last chemo in 2014, pre diabetic and neuropathy presented to the ED with complaints of chest pain for 10 days. Chest pain, atypical, r/o ACS suspected due to indigestion EKG reviewed and shows NSR, troponin .02 -Serial troponin and EKGs -2D echo ordered Dysphagia, chronic cough and pain with swallowing -Consult GI for recommendations HIV, chronic -Patient will need to continue to follow up outpatient DVT prophylaxis: SCDs This note was transcribed by lnyne [Sandie Gonzalez]. I, Dr. Juan Daniel Webber personally performed the history, physical exam, and medical decision making; and confirmed the accuracy of the information in the transcribed note. Authenticated by Dr. Juan Daniel Webber on 05/21/17 at 02:58. Discussed Condition With Patient and ED physician Sandie Gonzalez May 21, 2017 03:13 Juan Daniel Webber MD May 22, 2017 09:19
[2017-05-21 03:14] LABS: CREATINE KINASE 119 U/L (39-308)
[2017-05-21] MEDS ORDERED: RESP: IPRATROPIUM 0.5 MG/2.5 ML NEB NEB PRN (03:30)
[2017-05-21] MEDS ORDERED: LIFITEGRAST OPTH EACH EYE SCH (03:30)
[2017-05-21 04:12] LABS: CREATINE KINASE 122 U/L (39-308)
[2017-05-21] MEDS: GABAPENTIN 100 MG CAP PO SCH ×2 (08:34→21:22)
[2017-05-21] MEDS: SODIUM CHLORIDE 0.9% FLUSH 10 ML FLUSH IV FLUSH SCH ×2 (08:34→21:23)
--- NOTE | 2017-05-21 09:08 | PD.CONS ---
HPI History of Present Illness This is a 42 year old male with a history of HIV and Burkitt Lymphoma, who presented to the ER for odynophagia and dysphagia. His symptoms started a week and a half ago. He states that his food seems to get caught in his upper to mid esophagus. It will eventually pass, but takes time and frequent sips of liquids. He also has a burning pain in his esophagus down his chest when he swallows. He denies any heartburn or reflux. He has occasional nausea and vomiting, with undigested food or bilious material. He has chronic constipation and reports that every time he does move his bowels, he has bright red blood on the tissue when he wipes himself. He lost 120 lbs over the past 3 years. However, the majority was after his chemotherapy. His weight is currently fluctuating around 206. He has never had an EGD or colonoscopy. He was diagnosed with HIV in 2006 and was on treatment, but has been off for the past 6 months. He also has a history of Burkitt Lymphoma and was treated with chemotherapy in 2013. He is currently in remission. He does occasionally take ibuprofen for back or hip pain. (Sheila Cheng) PFSH Past Medical History HIV Burkitt Lymphoma Constipation Neuropathy ICH Past Surgical History Richie holes [place] for chemotherapy (Sheila Cheng) Coded Allergies: albuterol (Unverified Allergy, Intermediate, Hives, 05/07/17) shortness of breath Medications Allergies Coded Allergies Type Severity Reaction Last Updated Verified albuterol Allergy Intermediate Hives 05/07/17 No Active Scripts Medications Dose Route/Sig Max Daily Dose Days Date Category Gabapentin 100 Mg Cap 100 Mg PO BID 05/20/17 Reported Tramadol (Tramadol HCl) 50 Mg Tab 50 Mg PO DAILY PRN 05/07/17 Reported Xiidra Opth Drops (Lifitegrast Opth Drops) 5% Drops 1 Drop EACH EYE QOD 05/05/17 Reported Ipratropium Neb (Ipratropium [place]) 0.5 Mg/2.5 Ml Amp 0.5 Mg NEB Q6HR NEB PRN 03/09/17 Rx Family History Patient denies any family history, no heart disease or cancer. Social History Tobacco use: 2-3 cigs a day Alcohol use: Denies Illicit drug use: Marijuana (Sheila Cheng) Review of Systems Constitutional: COMPLAINS OF: Weight loss (120 lbs 3 years), DENIES: Fever, Chills Respiratory: DENIES: Cough Cardiovascular: COMPLAINS OF: Chest pain Gastrointestinal: COMPLAINS OF: Black stools, Constipation, Nausea, Vomiting, Difficulty Swallowing, Odynophagia, DENIES: Abdominal pain, Bloody stools, Diarrhea, Hematemesis Musculoskeletal: COMPLAINS OF: Joint pain Integumentary: COMPLAINS OF: Rash Hematologic/lymphatic: DENIES: Bruising Neurologic: DENIES: Headache Psychiatric: DENIES: Confusion (ChengEveretty Sveta GE) GI Exam Vitals I&O Vital Signs Date Time Temp Pulse Resp B/P (MAP) Pulse Ox O2 Delivery O2 Flow Rate FiO2 05/21/17 07:51 97.8 69 18 103/55 (71) 98 05/21/17 04:56 98.2 75 18 110/65 (80) 98 05/21/17 02:23 98.4 82 18 102/57 (72) 99 05/21/17 01:45 87 16 148/78 (101) 99 Room Air 05/20/17 22:28 95 20 134/77 (96) 98 Room Air 05/20/17 21:21 20 99 05/20/17 21:06 100 20 100 Room Air 05/20/17 20:58 99.0 98 22 134/77 (96) 99 Imaging Last Impressions Chest X-Ray 05/20/170 Signed Impressions: Service Date/Time: Saturday, May 20, 2017 21:37 - CONCLUSION: No acute disease. Jose Dean MD Laboratory Test 05/20/17 21:13 05/21/17 02:31 05/21/17 03:20 White Blood Count 5.0 TH/MM3 Red Blood Count 3.16 MIL/MM3 Hemoglobin 9.8 GM/DL Hematocrit 31.1 % Mean Corpuscular Volume 98.5 FL Mean Corpuscular Hemoglobin 31.1 PG Mean Corpuscular Hemoglobin Concent 31.5 % Red Cell Distribution Width 15.0 % Platelet Count 82 TH/MM3 Mean Platelet Volume 9.9 FL Neutrophils (%) (Auto) 49.4 % Lymphocytes (%) (Auto) 22.9 % Monocytes (%) (Auto) 14.7 % Eosinophils (%) (Auto) 12.9 % Basophils (%) (Auto) 0.1 % Neutrophils # (Auto) 2.4 TH/MM3 Lymphocytes # (Auto) 1.1 TH/MM3 Monocytes # (Auto) 0.7 TH/MM3 Eosinophils # (Auto) 0.6 TH/MM3 Basophils # (Auto) 0.0 TH/MM3 CBC Comment AUTO DIFF Differential Total Cells Counted 100 Neutrophils % (Manual) 59 % Band Neutrophils % 6 % Lymphocytes % 17 % Monocytes % 15 % Eosinophils % 3 % Neutrophils # (Manual) 3.3 TH/MM3 Differential Comment FINAL DIFF MANUAL Platelet Estimate LOW Platelet Morphology Comment ENLARGED Ovalocytes 1+ Prothrombin Time 10.4 SEC Prothromb Time International Ratio 0.9 RATIO Activated Partial Thromboplast Time 28.5 SEC Blood Urea Nitrogen 17 MG/DL Creatinine 0.94 MG/DL Random Glucose 82 MG/DL Calcium Level 8.9 MG/DL Sodium Level 142 MEQ/L Potassium Level 4.0 MEQ/L Chloride Level 107 MEQ/L Carbon Dioxide Level 27.3 MEQ/L Anion Gap 8 MEQ/L Estimat Glomerular Filtration Rate 108 ML/MIN Total Creatine Kinase 146 U/L 119 U/L 122 U/L Creatine Kinase MB 1.8 NG/ML Troponin I LESS THAN 0.02 NG/ML LESS THAN 0.02 NG/ML LESS THAN 0.02 NG/ML Physical Examination HEENT: Normocephalic; atraumatic; no jaundice. CHEST: CTA CARDIAC: RRR ABDOMEN: Soft, nondistended, nontender; no hepatosplenomegaly; bowel sounds are present in all four quadrants. EXTREMITIES: No clubbing, cyanosis, or edema. SKIN: Fine rash WOOL HANDLER: No focal deficits; alert and oriented times three. (Sheila ChengP) Assessment and Plan Plan ASSESESMENT: - Dsypahgia, Odynophagia x 1.5 weeks. Pt has burning pain with swallowing and solids are getting "hung up" in upper esophagus. He has a hx of HIV (not currently on tx) and does have mild maryana. ? Maryana esophagitis vs. stricture vs. other. Will plan for EGD +/- Dilatation in am. Clear liquids. Protonix. Add Nystatin. - BRBPR. Pt reports a long hx of constipation and has BRBPR with every bowel movement, although he does typically strain. Never had egd/colon. Has lost 120 lbs over past 3 years (most of this was during tx with chemo). Will plan for colonoscopy in am. - Chronic constipation. Add colace, miralax. - Rash, fine diffuse rash. Per attending. - Acute kidney injury/Hypokalemia, Creat. 1.32. K+ 3.3. - HIV, Dx 2006. Off tx x 6 months. - Hx Burkitt Lymphoma and was treated with chemotherapy in 2013. He is currently in remission. He does occasionally take ibuprofen for back or hip pain. PLAN: - Plan for EGD +/- Dilatation, Colonoscopy - Obtain consents - Clear liquids - NPO after MN - Golytely prep - Protonix - Nystatin - Monitor labs - Supportive care - Further recommendations to follow based on results of above - Pt seen and examined by Dr. Russo and myself and this note is written on his behalf (Sheila Cheng) Physician Comments Seen with Sheila, plan as above, procedures explained to the patients, including risk, benefits and possible complications, will proceed in AM. (Roxana Russo MD) Sheila Cheng May 21, 2017 09:08 Roxana Russo MD May 21, 2017 10:00
[2017-05-21] MEDS ORDERED: NYSTATIN SUSP 500,000 U/5 ML CUP SWISH-SWAL ONE (10:15)
[2017-05-21] MEDS ORDERED: LIDOCAINE VISCOUS 2% SOLN 15 ML UDC SWISH-SWAL PRN (10:15)
[2017-05-21] MEDS ORDERED: PEG (High)/E-LYTE SOLN 4000 ML BTL PO ONE (16:00)
[2017-05-21] MEDS ORDERED: guaiFENesin/DEXTROMETHORPHAN 200 MG/20 MG/10 ML CUP PO PRN (16:00)
--- NOTE | 2017-05-21 16:11 | HHI.PR ---
Subjective Remarks Follow-up for chest pain and dysphagia. The patient has been having pain in his throat whenever he swallows. He's also been having continued pain that he describes as a heaviness on his chest. The patient has also been having a chronic cough that is productive in the morning with yellow sputum with associated shortness of breath. He states that he's had this cough for about 6 months and has been treated with amoxicillin and azithromycin with no improvement. He has cut back smoking and continues to smoke 3 cigarettes daily. He denies any history of heart disease, high blood pressure, high cholesterol, or any family history of heart disease. Objective Vitals Vital Signs Date Time Temp Pulse Resp B/P (MAP) Pulse Ox O2 Delivery O2 Flow Rate FiO2 05/21/17 12:23 98.0 69 18 113/69 (84) 98 05/21/17 12:08 78 05/21/17 07:57 69 05/21/17 07:51 97.8 69 18 103/55 (71) 98 05/21/17 04:56 98.2 75 18 110/65 (80) 98 05/21/17 02:23 98.4 82 18 102/57 (72) 99 05/21/17 01:45 87 16 148/78 (101) 99 Room Air 05/20/17 22:28 95 20 134/77 (96) 98 Room Air 05/20/17 21:21 20 99 05/20/17 21:06 100 20 100 Room Air 05/20/17 20:58 99.0 98 22 134/77 (96) 99 Result Diagram: 05/20/17211205/20/172112 Imaging Last Impressions Chest X-Ray 05/20/172109 Signed Impressions: Service Date/Time: Saturday, May 20, 2017 21:37 - CONCLUSION: No acute disease. Jose Dean MD Objective Remarks GENERAL: Well-developed well-nourished. In no acute distress. SKIN: Warm and dry. Perioral excoriations. HEENT: Normocephalic. Pupils equal and round. Mucous membranes pink and moist. White plaques noted on the posterior oropharynx. CARDIOVASCULAR: Regular rate and rhythm. No murmur appreciated. RESPIRATORY: No accessory muscle use. Clear to auscultation. Breath sounds equal bilaterally. GASTROINTESTINAL: Abdomen soft, non-tender, nondistended. Bowel sounds x4. MUSCULOSKELETAL: No obvious deformities. No clubbing or cyanosis. No edema. NEUROLOGICAL: Awake and alert. No focal neurological deficits. Moves upper and lower extremities spontaneously. Normal speech. PSYCHIATRIC: Appropriate mood and affect; insight and judgment normal. 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 Chest pain, atypical: ACS ruled out per protocol with unremarkable serial cardiac enzymes and EKGs. Continues to have heavy midsternal chest pain, although could definitely be GI related as below. Reviewed: EKG shows NSR with no ischemic changes. Troponin 0.02 3. -2D echo ordered -Daily aspirin -Check lipid profile and hemoglobin A1c -Discussed at length with the patient, if EGD is nonrevealing and chest pain continues, patient will consider proceeding with stress test Dysphagia, and odynophagia: Possible Dara esophagitis. Possibly contributing to chest pain as above. -GI consulted, planning on EGD -Nystatin swish and swallow -PPI Chronic cough: 6 months and no improvement with antibiotics. Suspect secondary to ongoing tobacco use. Chest x-ray clear. Afebrile with no leukocytosis. -Guaifenesin DM as needed -Ipratropium nebs as needed -Counseled on smoking cessation. HIV, chronic -Patient will need to continue to follow up outpatient DVT prophylaxis: SCDs Discharge Planning Follow up results of EGD and colonoscopy tomorrow. Chris Rosenberg May 21, 2017 16:11
--- NOTE | 2017-05-21 16:26 | ECHRPT ---
Indication: SOB CONCLUSIONS Normal left ventricular size. Wall thickness is measured at the upper limits of normal. The left ventricular systolic function is normal with an estimated ejection fraction in the range of 55-60%. [id number] mitral valve regurgitation. BP: 110 / 65 HR: 75 Rhythm: Sinus MEASUREMENTS (Male / Female) Normal Values Technical Quality:Good 2D ECHO LV Diastolic Diameter PLAX 5.3 cm 4.2 - 5.9 / 3.9 - 5.3 cm LV Systolic Diameter PLAX 3.9 cm IVS Diastolic Thickness 1.1 cm 0.6 - 1.0 / 0.6 - 0.9 cm LVPW Diastolic Thickness 1.0 cm 0.6 - 1.0 / 0.6 - 0.9 cm LV Relative Wall Thickness 0.4 LA Systolic Diameter LX 3.5 cm 3.0 - 4.0 / 2.7 - 3.8 cm DOPPLER Mitral E Point Velocity 85.4 cm/s Mitral A Point Velocity 47.9 cm/s Mitral E to A Ratio 1.8 TR Peak Velocity 140.0 cm/s TR Peak Gradient 7.8 mmHg FINDINGS LEFT VENTRICLE Normal left ventricular size. Wall thickness is measured at the upper limits of normal. The left ventricular systolic function is normal with an estimated ejection fraction in the range of 55-60%. RIGHT VENTRICLE Normal right ventricular size and systolic function. LEFT ATRIUM The left atrial size is normal. RIGHT ATRIUM The right atrial size is normal. ATRIAL SEPTUM Normal atrial septal thickness without atrial level shunting by limited color doppler interrogation. AORTA The aortic root and proximal ascending aorta are normal in size on limited imaging. MITRAL VALVE [id number] mitral valve regurgitation. AORTIC VALVE Trileaflet aortic valve. No aortic valve stenosis or regurgitation. TRICUSPID VALVE Structurally normal tricuspid valve. No tricuspid valve stenosis or regurgitation. PULMONARY VALVE The pulmonary valve is not well visualized. VESSELS The inferior vena cava is normal in size. PERICARDIUM No pericardial effusion. Ruperto Gonzalez MD, FACC (Electronically Signed) Final Date:21 May 2017 16:25
[2017-05-21] MEDS ORDERED: guaiFENesin/DEXTROMETHORPHAN 200 MG/20 MG/10 ML CUP PO ONE (17:00)
--- NOTE | 2017-05-21 17:42 | EKG ---
Date Performed: 05/21/2017 Time Performed: 11:17:54 PTAGE: 42 years EKG: Sinus rhythm NORMAL ECG PREVIOUS TRACING : 05/21/2017 03.30 Compared to prior tracing no significant change DOCTOR: Wilfredo Erazo Interpretating Date/Time 05/21/2017 17:37:40
[2017-05-21] MEDS: PANTOPRAZOLE SOD 40 MG DELAYED RELEASE TAB PO SCH (17:55)
--- NOTE | 2017-05-21 17:58 | EKG ---
Date Performed: 05/20/2017 Time Performed: 21:07:49 PTAGE: 42 years EKG: Sinus rhythm NORMAL ECG Compared to prior tracing no significant change PREVIOUS TRACING : 11/05/2016 21.15 DOCTOR: Wilfredo Erazo Interpretating Date/Time 05/21/2017 17:57:58
--- NOTE | 2017-05-21 18:05 | EKG ---
Date Performed: 05/21/2017 Time Performed: 03:30:05 PTAGE: 42 years EKG: Sinus rhythm NORMAL ECG Compared to prior tracing no significant change PREVIOUS TRACING : 05/20/2017 11.17.54 DOCTOR: Wilfredo Erazo Interpretating Date/Time 05/21/2017 18:04:40
[2017-05-21] MEDS: NYSTAT/DIPHENHY/LIDO MOUTHWASH (Adult) 120ML SWISH-SWAL SCH ×2 (18:46→21:23)
[2017-05-22] VITALS (10 sets, daily range): BP systolic 95–121; BP diastolic 57–84; PULSE 67–85; RESP 18–20; TEMP 97.9–98.2; O2SAT 97–100
[2017-05-22] MEDS: PANTOPRAZOLE SOD 40 MG DELAYED RELEASE TAB PO SCH (08:12)
[2017-05-22] MEDS: ASPIRIN 81 MG CHEW TAB CHEW SCH (08:13)
[2017-05-22] MEDS: NYSTAT/DIPHENHY/LIDO MOUTHWASH (Adult) 120ML SWISH-SWAL SCH ×4 (08:13→23:28)
[2017-05-22] MEDS: GABAPENTIN 100 MG CAP PO SCH ×2 (08:13→23:27)
[2017-05-22] MEDS: SODIUM CHLORIDE 0.9% FLUSH 10 ML FLUSH IV FLUSH SCH ×2 (08:14→21:00)
[2017-05-22 09:10] LABS: AUTOMATED NEUTROPHIL # 1.2 TH/MM3 (1.8-7.7); BASOPHIL % 0.4 % (0.0-2.0); EOSINOPHIL # 0.5 TH/MM3 (0-0.4); EOSINOPHIL % 20.1 % (0.0-4.0); HEMATOCRIT 28.5 % (39.0-51.0); LYMPH % 22.6 % (9.0-44.0); LYMPHOCYTE # 0.6 TH/MM3 (1.0-4.8); MEAN CELL VOLUME 98.7 FL (80.0-100.0); MEAN CORPUSCULAR HEMOGLOBIN 32.1 PG (27.0-34.0); MEAN CORPUSCULAR HGB CONC 32.5 % (32.0-36.0); MONO % 12.7 % (0.0-8.0); NEUT % 44.2 % (16.0-70.0); PLATELET COUNT 70 TH/MM3 (150-450); RED BLOOD COUNT 2.89 MIL/MM3 (4.50-5.90); WHITE BLOOD COUNT 2.7 TH/MM3 (4.0-11.0)
[2017-05-22 09:18] LABS: HEMO FLAGS AUTO DIFF
[2017-05-22 09:28] LABS: BICARBONATE 29.8 MEQ/L (21.0-32.0); POTASSIUM 3.8 MEQ/L (3.5-5.1)
[2017-05-22 09:33] LABS: HDL CHOLESTEROL 33.1 MG/DL (40.0-60.0)
[2017-05-22 10:11] LABS: SCAN/DIFF AUTO DIFF CONFIRMED
[2017-05-22] MEDS ORDERED: PROPOFOL 200 MG/20 ML AMP IV PUSH ONE (11:27)
--- NOTE | 2017-05-22 11:42 | HHI.GIFU ---
Subjective Remarks Immediate postop note: EGD with biopsy and colonoscopy Sedation: MAC Indication: dysphagia, HIV, constipation Findings: Esophagus: exuberant exudate in esophagus consistent with dara. biopsy taken Stomach: mild gastritis. Biopsy taken. Duodenum: normal Cecum-rectum: normal. Objective Vitals I&O Vital Signs Date Time Temp Pulse Resp B/P (MAP) Pulse Ox O2 Delivery O2 Flow Rate FiO2 05/22/17 07:50 98.2 75 18 95/58 (70) 97 05/22/17 04:43 98.0 74 18 101/57 (72) 98 05/22/17 04:05 77 05/22/17 00:13 85 05/21/17 23:41 98.0 88 18 122/74 (90) 100 05/21/17 20:11 76 05/21/17 19:21 98.2 76 17 118/79 (92) 97 05/21/17 16:15 98.1 69 18 115/74 (88) 99 05/21/17 12:23 98.0 69 18 113/69 (84) 98 05/21/17 12:08 78 I/O 05/21/17 05/21/17 05/21/17 05/22/17 05/22/17 05/22/17 07:00 15:00 23:00 07:00 15:00 23:00 Intake Total 800 ml Balance 800 ml Intake Other 800 ml Laboratory Laboratory Tests Test 05/22/17 06:53 White Blood Count 2.7 Red Blood Count 2.89 Hemoglobin 9.3 Hematocrit 28.5 Mean Corpuscular Volume 98.7 Mean Corpuscular Hemoglobin 32.1 Mean Corpuscular Hemoglobin Concent 32.5 Red Cell Distribution Width 15.0 Platelet Count 70 Mean Platelet Volume 10.6 Neutrophils (%) (Auto) 44.2 Lymphocytes (%) (Auto) 22.6 Monocytes (%) (Auto) 12.7 Eosinophils (%) (Auto) 20.1 Basophils (%) (Auto) 0.4 Neutrophils # (Auto) 1.2 Lymphocytes # (Auto) 0.6 Monocytes # (Auto) 0.3 Eosinophils # (Auto) 0.5 Basophils # (Auto) 0.0 CBC Comment AUTO DIFF Differential Comment AUTO DIFF CONFIRMED Blood Urea Nitrogen 13 Creatinine 0.79 Random Glucose 77 Calcium Level 8.4 Sodium Level 142 Potassium Level 3.8 Chloride Level 106 Carbon Dioxide Level 29.8 Anion Gap 6 Estimat Glomerular Filtration Rate 132 Triglycerides Level 197 Cholesterol Level 177 LDL Cholesterol 105 HDL Cholesterol 33.1 Cholesterol/HDL Ratio 5.34 Physical Exam HEENT: Pupils round and reactive to light; normocephalic; atraumatic; no jaundice. Throat is clear. NECK: Neck is supple, no JVD, no lymphadenopathy. CHEST: Chest is clear to auscultation and percussion. CARDIAC: Regular rate and rhythm with no murmur gallop or rubs. ABDOMEN: Soft, nondistended, nontender; no hepatosplenomegaly; bowel sounds are present in all four quadrants. EXTREMITIES: No clubbing, cyanosis, or edema. SKIN: Normal; no rash; no jaundice. FRAMING INSPECTOR: No focal deficits; alert and oriented times three. Assessment and Plan Plan ASSESESMENT: - Dsypahgia, Odynophagia x 1.5 weeks. Pt has burning pain with swallowing and solids are getting "hung up" in upper esophagus. He has a hx of HIV (not currently on tx) and does have mild dara. ? Dara esophagitis vs. stricture vs. other. Will plan for EGD +/- Dilatation in am. Clear liquids. Protonix. Add Nystatin. - BRBPR. Pt reports a long hx of constipation and has BRBPR with every bowel movement, although he does typically strain. Never had egd/colon. Has lost 120 lbs over past 3 years (most of this was during tx with chemo). Will plan for colonoscopy in am. - Chronic constipation. Add colace, miralax. - Rash, fine diffuse rash. Per attending. - Acute kidney injury/Hypokalemia, Creat. 1.32. K+ 3.3. - HIV, Dx 2006. Off tx x 6 months. - Hx Burkitt Lymphoma and was treated with chemotherapy in 2013. He is currently in remission. He does occasionally take ibuprofen for back or hip pain. - EGD showed exudate in esopahagus consistent with Candidal esophagitis. Colonoscopy normal PLAN: - Protonix - Nystatin - Monitor labs - Supportive care - Start diflucan 100mg IV daily Raul Del Valle MD May 22, 2017 11:42
[2017-05-22 12:46] LABS: HEMOGLOBIN A1a 1.3 %; HEMOGLOBIN A1b 0.8 %; HEMOGLOBIN Ao 84.7 %; HEMOGLOBIN F 1.2 %; HEMOGLOBIN LA1C 1.5 %; HEMOGLOBIN P3 3.8 %
[2017-05-22] MEDS ORDERED: FLUCONAZOLE 100 MG PREMIX BAG 50 ML IV SCH (13:00)
--- NOTE | 2017-05-22 13:52 | HHI.PR ---
Subjective Remarks Follow-up for dysphagia and chest discomfort. The patient is seen after EGD today which showed severe dara esophagitis. The patient's clear liquids have just arrived and he is eager to try them. The patient has had constant throat and chest discomfort since being admitted, but symptoms have been steadily improving since starting on nystatin. Objective Vitals Vital Signs Date Time Temp Pulse Resp B/P (MAP) Pulse Ox O2 Delivery O2 Flow Rate FiO2 05/22/17 13:02 98.0 67 18 121/84 (96) 100 05/22/17 12:09 97.2 67 16 130/67 (88) 98 05/22/17 11:43 96.9 80 16 128/64 (85) 100 05/22/17 07:50 98.2 75 18 95/58 (70) 97 05/22/17 04:43 98.0 74 18 101/57 (72) 98 05/22/17 04:05 77 05/22/17 00:13 85 05/21/17 23:41 98.0 88 18 122/74 (90) 100 05/21/17 20:11 76 05/21/17 19:21 98.2 76 17 118/79 (92) 97 05/21/17 16:15 98.1 69 18 115/74 (88) 99 I/O 05/21/17 05/21/17 05/21/17 05/22/17 05/22/17 05/22/17 07:00 15:00 23:00 07:00 15:00 23:00 Intake Total 800 ml Balance 800 ml Intake Other 800 ml Result Diagram: 05/22/17 0653 05/22/17 0653 Imaging Last Impressions Chest X-Ray 05/20/172109 Signed Impressions: Service Date/Time: Saturday, May 20, 2017 21:37 - CONCLUSION: No acute disease. Jose Dean MD Objective Remarks GENERAL: Well-developed well-nourished. In no acute distress. SKIN: Warm and dry. Perioral excoriations. HEENT: Normocephalic. Pupils equal and round. Mucous membranes pink and moist. White plaques noted on the posterior oropharynx. CARDIOVASCULAR: Regular rate and rhythm. No murmur appreciated. RESPIRATORY: No accessory muscle use. Clear to auscultation. Breath sounds equal bilaterally. GASTROINTESTINAL: Abdomen soft, non-tender, nondistended. Bowel sounds x4. MUSCULOSKELETAL: No obvious deformities. No clubbing or cyanosis. No edema. NEUROLOGICAL: Awake and alert. No focal neurological deficits. Moves upper and lower extremities spontaneously. Normal speech. PSYCHIATRIC: Appropriate mood and affect; insight and judgment normal. 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 Chest pain, atypical: ACS ruled out per protocol with unremarkable serial cardiac enzymes and EKGs. The patient has no history of heart disease, no risk factors, and no family history. Suspect symptoms are secondary to esophagitis as below. -Patient offered stress testing, but declines with esophagitis as below, which is reasonable Dysphagia, and odynophagia: GI consulted and performed EGD which showed exuberant exudate and esophagus consistent with Dara, mild gastritis. -GI ordered IV fluconazole daily and clear liquids, follow up additional recommendations -Nystatin swish and swallow -PPI Chronic cough: 6 months and no improvement with antibiotics. Suspect secondary to ongoing tobacco use. Chest x-ray clear. Afebrile with no leukocytosis. -Guaifenesin DM as needed -Ipratropium nebs as needed -Counseled on smoking cessation. HIV, chronic -Patient will need to continue to follow up outpatient DVT prophylaxis: SCDs Discharge Planning Discharge planning pending further clinical improvement and GI clearance. Discussed with GI, discharge planning when patient is able to tolerate oral fluconazole, possibly tomorrow, advance diet as tolerated. Chris Rosenberg May 22, 2017 13:52
[2017-05-22] MEDS: traMADol HCL 50 MG TAB PO PRN (18:01)
[2017-05-23 00:05] VITALS: BP 110/55; PULSE 66; RESP 18; TEMP 98.4; O2SAT 98
[2017-05-23 01:03] VITALS: PULSE 69
[2017-05-23 04:13] VITALS: PULSE 69
[2017-05-23 05:11] VITALS: BP 115/61; PULSE 74; RESP 18; TEMP 98.4; O2SAT 97
--- NOTE | 2017-05-23 08:12 | HHI.PR ---
Subjective Remarks Follow-up for Dara esophagitis. The patient states that he had a little throat soreness with clear liquids last night, but overall he feels improved. He would like to try to advance his diet to soft. He feels like he would be able to tolerate oral antifungals and wants to try. No abdominal pain. Objective Vitals Vital Signs Date Time Temp Pulse Resp B/P (MAP) Pulse Ox O2 Delivery O2 Flow Rate FiO2 05/23/17 05:11 98.4 74 18 115/61 (79) 97 05/23/17 04:13 69 05/23/17 01:03 69 05/23/17 00:05 98.4 66 18 110/55 (73) 98 05/22/17 20:09 77 05/22/17 20:05 98.1 70 20 115/61 (79) 100 05/22/17 16:25 71 05/22/17 15:28 97.9 74 18 116/73 (87) 98 05/22/17 13:02 98.0 67 18 121/84 (96) 100 05/22/17 12:09 97.2 67 16 130/67 (88) 98 05/22/17 11:43 96.9 80 16 128/64 (85) 100 05/22/17 09:51 81 I/O 05/22/17 05/22/17 05/22/17 05/23/17 05/23/17 05/23/17 06:59 14:59 22:59 06:59 14:59 22:59 Intake Total 800 ml Balance 800 ml Intake Other 800 ml Result Diagram: 05/22/17 0653 05/22/17 0653 Imaging Last Impressions Chest X-Ray 05/20/172109 Signed Impressions: Service Date/Time: Saturday, May 20, 2017 21:37 - CONCLUSION: No acute disease. Jose Dean MD Objective Remarks GENERAL: Well-developed well-nourished. In no acute distress. SKIN: Warm and dry. Perioral excoriations. HEENT: Normocephalic. Pupils equal and round. Mucous membranes pink and moist. Improvement of posterior pharynx white plaques. CARDIOVASCULAR: Regular rate and rhythm. No murmur appreciated. RESPIRATORY: No accessory muscle use. Clear to auscultation. Breath sounds equal bilaterally. GASTROINTESTINAL: Abdomen soft, non-tender, nondistended. Bowel sounds x4. MUSCULOSKELETAL: No obvious deformities. No clubbing or cyanosis. No edema. NEUROLOGICAL: Awake and alert. No focal neurological deficits. Moves upper and lower extremities spontaneously. Normal speech. PSYCHIATRIC: Appropriate mood and affect; insight and judgment normal. 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 Chest pain, atypical: ACS ruled out per protocol with unremarkable serial cardiac enzymes and EKGs. The patient has no history of heart disease, no risk factors, and no family history. Suspect symptoms are secondary to esophagitis as below. -Patient offered stress testing, but declines due to known esophagitis as below, which is reasonable Dysphagia/odynophagia secondary to dara esophagitis: GI consulted and performed EGD which showed exuberant exudate and esophagus consistent with Dara, mild gastritis. -GI ordered IV fluconazole daily until patient can tolerate oral -Tolerating clear liquids once a regular soft diet, will advance -Nystatin swish and swallow -PPI Chronic cough: 6 months and no improvement with antibiotics. Suspect secondary to ongoing tobacco use. Chest x-ray clear. Afebrile with no leukocytosis. -Guaifenesin DM as needed -Ipratropium nebs as needed -Counseled on smoking cessation. HIV, chronic -Patient will need to continue to follow up outpatient DVT prophylaxis: SCDs Discharge Planning Previously discussed with GI, discharge planning when patient is able to tolerate oral fluconazole, possibly later today. Problem Qualifiers (1) Chest pain: Qualified Codes: R07.89 - Other chest pain (2) Dysphagia: Qualified Codes: R13.10 - Dysphagia, unspecified Chris Rosenberg May 23, 2017 08:12
[2017-05-23 08:22] VITALS: BP 124/68; PULSE 76; RESP 18; TEMP 96.8; O2SAT 96
[2017-05-23] MEDS ORDERED: FLUCONAZOLE 200 MG TAB PO SCH (09:00)
[2017-05-23] MEDS ORDERED: FLUCONAZOLE 100 MG TAB PO SCH (09:00)
[2017-05-23] MEDS: ASPIRIN 81 MG CHEW TAB CHEW SCH (09:12)
[2017-05-23] MEDS: GABAPENTIN 100 MG CAP PO SCH (09:12)
[2017-05-23] MEDS: PANTOPRAZOLE SOD 40 MG DELAYED RELEASE TAB PO SCH (09:12)
[2017-05-23] MEDS: SODIUM CHLORIDE 0.9% FLUSH 10 ML FLUSH IV FLUSH SCH (09:13)
[2017-05-23] MEDS: NYSTAT/DIPHENHY/LIDO MOUTHWASH (Adult) 120ML SWISH-SWAL SCH (09:14)
--- NOTE | 2017-05-23 10:26 | HHI.GIFU ---
Subjective Remarks Pt continues to have discomfort when swallowing. He is on a soft diet now. He is on diflucan but has not seen any significant improvement so far. He has apparent dara esophagitis due to AIDS. Colonoscopy was normal. Objective Vitals I&O Vital Signs Date Time Temp Pulse Resp B/P (MAP) Pulse Ox O2 Delivery O2 Flow Rate FiO2 05/23/17 08:22 96.8 76 18 124/68 (86) 96 05/23/17 05:11 98.4 74 18 115/61 (79) 97 05/23/17 04:13 69 05/23/17 01:03 69 05/23/17 00:05 98.4 66 18 110/55 (73) 98 05/22/17 20:09 77 05/22/17 20:05 98.1 70 20 115/61 (79) 100 05/22/17 16:25 71 05/22/17 15:28 97.9 74 18 116/73 (87) 98 05/22/17 13:02 98.0 67 18 121/84 (96) 100 05/22/17 12:09 97.2 67 16 130/67 (88) 98 05/22/17 11:43 96.9 80 16 128/64 (85) 100 I/O 05/22/17 05/22/17 05/22/17 05/23/17 05/23/17 05/23/17 07:00 15:00 23:00 07:00 15:00 23:00 Intake Total 800 ml Balance 800 ml Intake Other 800 ml Imaging Current Medications Medications (Trade) Dose Ordered Sig/Braulio Route Start Time Stop Time Status Last Admin (NS Flush) 2 ml UNSCH PRN IV FLUSH 05/21/17 00:30 (NS Flush) 2 ml BID IV FLUSH 05/21/17 09:00 05/23/17 09:13 (Narcan Inj) 0.4 mg UNSCH PRN IV 05/21/17 00:30 (Neurontin) 100 mg BID PO 05/21/17 09:00 05/23/17 09:12 (Atrovent Neb) 0.5 mg Q6HR NEB PRN NEB 05/21/17 03:30 Patient Own Medication PT OWN MED: [employer]... QOD EACH EYE 05/21/17 03:30 Future Hold (Ultram) 50 mg Q8H PRN PO 05/21/17 16:00 05/22/17 18:01 (Robitussin Dm 200-20 Mg/10 ml Liq) 10 ml Q6H PRN PO 05/21/17 16:00 (Aspirin Chew) 81 mg DAILY CHEW 05/22/17 09:00 05/23/17 09:12 (Magic Mouthwash Adult Liq) 10 ml QID SWISH-SWAL 05/21/17 18:00 05/23/17 09:14 (Protonix) 40 mg DAILY PO 05/21/17 17:00 05/23/17 09:12 (Diflucan) 200 mg DAILY PO 05/23/17 09:00 05/23/17 09:11 Physical Exam HEENT: Pupils round and reactive to light; normocephalic; atraumatic; no jaundice. Throat is clear. NECK: Neck is supple, no JVD, no lymphadenopathy. CHEST: Chest is clear to auscultation and percussion. CARDIAC: Regular rate and rhythm with no murmur gallop or rubs. ABDOMEN: Soft, nondistended, nontender; no hepatosplenomegaly; bowel sounds are present in all four quadrants. EXTREMITIES: No clubbing, cyanosis, or edema. SKIN: Normal; no rash; no jaundice. SUPERVISOR TOY ASSEMBLY: No focal deficits; alert and oriented times three. Assessment and Plan Plan ASSESESMENT: - Dsypahgia, Odynophagia x 1.5 weeks. Pt has burning pain with swallowing and solids are getting "hung up" in upper esophagus. He has a hx of HIV (not currently on tx) and does have mild dara. ? Dara esophagitis vs. stricture vs. other. Will plan for EGD +/- Dilatation in am. Clear liquids. Protonix. Add Nystatin. - BRBPR. Pt reports a long hx of constipation and has BRBPR with every bowel movement, although he does typically strain. Never had egd/colon. Has lost 120 lbs over past 3 years (most of this was during tx with chemo). Will plan for colonoscopy in am. - Chronic constipation. Add colace, miralax. - Rash, fine diffuse rash. Per attending. - Acute kidney injury/Hypokalemia, Creat. 1.32. K+ 3.3. - HIV, Dx 2006. Off tx x 6 months. - Hx Burkitt Lymphoma and was treated with chemotherapy in 2013. He is currently in remission. He does occasionally take ibuprofen for back or hip pain. - EGD showed exudate in esopahagus consistent with Candidal esophagitis. Colonoscopy normal PLAN: - Protonix - Nystatin - Monitor labs - Supportive care - Continue diflucan. - Ok to discharge once he is showing improvement. Raul Del Valle MD May 23, 2017 10:26
[2017-05-23] MEDS: traMADol HCL 50 MG TAB PO PRN (11:21)
[2017-05-23] MEDS ORDERED: PANT40TA3 PO (11:27)
[2017-05-23] MEDS ORDERED: DIFL200T PO (11:27)
[2017-05-23] MEDS ORDERED: MAGICADU2 SWISH-SWAL (11:27)
--- NOTE | 2017-05-23 11:35 | HHI.DS ---
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 He states for the last 10 days he has been having episodes of chest pressure and if feels like someone is sitting on his chest, with associated shortness of breath and difficultly swallowing. He states he thought it was gas so he walked to the store for medication and when he got back home he felt the pain and shortness of breath was increased. He states the pain is 4-5 times a day and more so when he swallows food and burps. He denies any radiating pain to his arm or jaw. He states he feels like the food is stuck, and has only been able to drink mostly liquids. He states on Thursday he vomited because he was forcing himself to eat but that was the only time. He has also been constipated for 2 weeks but had a bowel movement yesterday. He has not been on HIV medication for the last 6 months, he is currently following outpatient to be restarted. CBC/BMP: 05/22/17 0653 05/22/17 0653 Significant Findings Laboratory Tests Test 05/20/17 21:13 05/21/17 02:31 05/21/17 03:20 05/22/17 06:53 Red Blood Count 3.16 MIL/MM3 (4.50-5.90) 2.89 MIL/MM3 (4.50-5.90) Hemoglobin 9.8 GM/DL (13.0-17.0) 9.3 GM/DL (13.0-17.0) Hematocrit 31.1 % (39.0-51.0) 28.5 % (39.0-51.0) Mean Corpuscular Hemoglobin Concent 31.5 % (32.0-36.0) Platelet Count 82 TH/MM3 (150-450) 70 TH/MM3 (150-450) Monocytes (%) (Auto) 14.7 % (0.0-8.0) 12.7 % (0.0-8.0) Eosinophils (%) (Auto) 12.9 % (0.0-4.0) 20.1 % (0.0-4.0) Eosinophils # (Auto) 0.6 TH/MM3 (0-0.4) 0.5 TH/MM3 (0-0.4) Monocytes % 15 % (0-8) Platelet Estimate LOW (NORMAL) Platelet Morphology Comment ENLARGED (NORMAL) Ovalocytes 1+ (NORMAL) Hemoglobin A1c 6.1 % (4.3-6.0) Troponin I LESS THAN 0.02 NG/ML LESS THAN 0.02 NG/ML LESS THAN 0.02 NG/ML White Blood Count 2.7 TH/MM3 (4.0-11.0) Neutrophils # (Auto) 1.2 TH/MM3 (1.8-7.7) Lymphocytes # (Auto) 0.6 TH/MM3 (1.0-4.8) Calcium Level 8.4 MG/DL (8.5-10.1) Triglycerides Level 197 MG/DL (42-150) LDL Cholesterol 105 MG/DL (0-99) HDL Cholesterol 33.1 MG/DL (40.0-60.0) Imaging Last Impressions Chest X-Ray 05/20/170 Signed Impressions: Service Date/Time: Saturday, May 20, 2017 21:37 - CONCLUSION: No acute disease. Jose Dean MD PE at Discharge GENERAL: Well-developed well-nourished. In no acute distress. SKIN: Warm and dry. Perioral excoriations. HEENT: Normocephalic. Pupils equal and round. Mucous membranes pink and moist. Improvement of posterior pharynx white plaques. CARDIOVASCULAR: Regular rate and rhythm. No murmur appreciated. RESPIRATORY: No accessory muscle use. Clear to auscultation. Breath sounds equal bilaterally. GASTROINTESTINAL: Abdomen soft, non-tender, nondistended. Bowel sounds x4. MUSCULOSKELETAL: No obvious deformities. No clubbing or cyanosis. No edema. NEUROLOGICAL: Awake and alert. No focal neurological deficits. Moves upper and lower extremities spontaneously. Normal speech. PSYCHIATRIC: Appropriate mood and affect; insight and judgment normal. Pt update on day of discharge Patient tolerated soft diet and oral fluconazole. 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 Dysphagia/odynophagia secondary to maryana esophagitis: GI consulted and performed EGD which showed exuberant exudate and esophagus consistent with Maryana, mild gastritis. -Continue oral fluconazole -Soft diet, advance as tolerated -Nystatin swish and swallow -PPI Pt Condition on Discharge: Stable Discharge Disposition: Discharge Home Discharge Time: > 30 minutes Discharge Instructions DIET: Follow Instructions for: As Tolerated, No Restrictions, Diabetic Diet, Soft Diet Additional Diet Instructions: Soft diet and advance as tolerated. Low carb. Activities you can perform: Regular-No Restrictions Follow up Referrals: Gastroenterology - 2 Weeks @ [facility] PCP Follow-up - 3-5 Days with Michelle Jimenez New Medications: Fluconazole (Diflucan) 200 Mg Tab 200 MG PO DAILY for Infection, #14 TAB [place]-Uazhlabtclxvdlw-Qlwplodrd Liq (Magic Mouthwash Adult Liq) 120 Ml Susp 10 ML SWISH-SWAL QID for Sore Throat, #1 BOTTLE Pantoprazole (Pantoprazole) 40 Mg Tab 40 MG PO DAILY for Reflux, #30 TAB Continued Medications: Gabapentin (Gabapentin) 100 Mg Cap 100 MG PO BID, #60 CAP 0 Refills Ipratropium Neb (Ipratropium Neb) 0.5 Mg/2.5 Ml Amp 0.5 MG NEB Q6HR NEB PRN for SHORTNESS OF BREATH, #1 BOX 0 Refills Lifitegrast Opth Drops (Xiidra Opth Drops) 5% Drops 1 DROP EACH EYE QOD for Dry Eye, #1 BOTTLE 0 Refills Tramadol (Tramadol) 50 Mg Tab 50 MG PO DAILY PRN for PAIN, TAB 0 Refills Chris Rosenberg May 23, 2017 11:35
== END 2017-05-23 12:18 | disposition home or self-care (01) ==
LOC: NEPC 20:43 → NEDA 23:23 → NEPFCDU 05-21 01:54
PROVIDERS: ADMIT Hospitalist; ATTEND Hospitalist
DX: R07.9 Chest pain, unspecified (principal); R13.10 Dysphagia, unspecified; B37.81 Candidal esophagitis; K29.71 Gastritis, unspecified, with bleeding; K52.9 Noninfective gastroenteritis and colitis, unspecified; K59.09 Other constipation; C83.70 Burkitt lymphoma, unspecified site; B20 Human immunodeficiency virus [HIV] disease; F12.90 Cannabis use, unspecified, uncomplicated; E87.6 Hypokalemia; F17.210 Nicotine dependence, cigarettes, uncomplicated
CPT/HCPCS: 00740; 43239; 45378; 71010; 80048; 80061; 82550; 82552; 83036; 84484; 85007; 85025; 85027; 85610; 85730; 88305; 88312; 93005; 93306; 96365; 96366; 99285; G0378; J1450

== ENCOUNTER 2017-10-13 12:29 | Inpatient (IN) | payer MEDICARE, MEDICAID ==
[~2017-10-13] VITALS: Ht 180.3 cm; Wt 90.3 kg
[2017-10-13] VITALS (7 sets, daily range): BP systolic 105–134; BP diastolic 64–91; PULSE 61–106; RESP 18; TEMP 98–100.5; O2SAT 99–100
[~2017-10-13 12:29] MED LIST changes: +MAGICADU2 SWISH-SWAL; -MUCI30TA2 PO; +PANT40TA3 PO
[2017-10-13 13:31] LABS: AUTOMATED NEUTROPHIL # 1.4 TH/MM3 (1.8-7.7); BASOPHIL % 0.4 % (0.0-2.0); EOSINOPHIL # 0.2 TH/MM3 (0-0.4); EOSINOPHIL % 6.4 % (0.0-4.0); HEMATOCRIT 30.3 % (39.0-51.0); HEMOGLOBIN 10.3 GM/DL (13.0-17.0); LYMPH % 22.4 % (9.0-44.0); LYMPHOCYTE # 0.6 TH/MM3 (1.0-4.8); MEAN CELL VOLUME 94.5 FL (80.0-100.0); MEAN CORPUSCULAR HEMOGLOBIN 32.1 PG (27.0-34.0); MONO % 18.1 % (0.0-8.0); MONOCYTE # 0.5 TH/MM3 (0-0.9); NEUT % 52.7 % (16.0-70.0); PLATELET COUNT 143 TH/MM3 (150-450); RED BLOOD COUNT 3.21 MIL/MM3 (4.50-5.90); RED CELL DISTRIBUTION WIDTH 14.2 % (11.6-17.2); WHITE BLOOD COUNT 2.6 TH/MM3 (4.0-11.0)
[2017-10-13 13:40] LABS: BILIRUBIN, URINE NEG (NEG); BLOOD, URINE NEG (NEG); GLUCOSE,URINE NEG (NEG); HYALINE CAST, URINE 1 /lpf (RARE); KETONE, URINE NEG (NEG); MUCUS URINE FEW /lpf (OCC); NITRITE,URINE NEG (NEG); PH, URINE 6.5 (5.0-8.5); PROTHROMBIN TIME - PATIENT 10.6 SEC (9.8-11.6); SQUAMOUS EPITHELIAL CELL URINE <1 /hpf (0-5); URINE COLOR YELLOW (YELLW/STRAW); URINE LEUKOCYTE ESTERASE NEG (NEG)
[2017-10-13 13:44] LABS: ALBUMIN 3.8 GM/DL (3.4-5.0); AST (GOT) 18 U/L (15-37); BICARBONATE 28.3 MEQ/L (21.0-32.0); BLOOD UREA NITROGEN 16 MG/DL (7-18); CALCIUM 9.3 MG/DL (8.5-10.1); CHLORIDE 100 MEQ/L (98-107); CREATININE 1.05 MG/DL (0.60-1.30); GLOMERULAR FILTRATION RATE 95 ML/MIN (>89); GLUCOSE,RANDOM 98 MG/DL (74-106); LIPASE 112 U/L (73-393); SODIUM (NA) 135 MEQ/L (136-145)
[2017-10-13 13:49] LABS: ALKALINE PHOSPHATASE 68 U/L (45-117); ALT (GPT) 16 U/L (12-78); TOTAL BILIRUBIN ADULT 0.5 MG/DL (0.2-1.0); TOTAL PROTEIN 8.2 GM/DL (6.4-8.2)
--- NOTE | 2017-10-13 13:56 | PD ---
HPI Chief Complaint: Cold / Flu Symptoms Time Seen by Provider: 13:35 Travel History International Travel<30 days: No Contact w/Intl Traveler<30days: No Traveled to known affect area: No History of Present Illness HPI 42-year-old HIV positive male presents to the ED for evaluation of 2 week history of headaches, fevers, chills, sinus congestion, runny nose, cough occasionally productive of yellow phlegm, nausea, vomiting, low appetite. Symptoms onset gradually. He denies sick contacts, history of seasonal allergies. Patient states that he went to see snow, spent a lot of time outside and thinks this may be what started this illness. He has been treating with OTC medications at home. Patient is unsure of his CD4 count or viral load. He states that he has been unable to take his antiviral medications secondary to nausea and vomiting. He did not receive this years flu shot. PFSH Past Medical History Autoimmune Disease: Yes (HIV positive) Heart Rhythm Problems: No Cancer: Yes (Burkitt's LYMPHOMA) Cardiovascular Problems: No Chemotherapy: Yes (2013 for burketts lymphoma) Congestive Heart Failure: No Diabetes: No Diminished Hearing: No Heparin Induced Thrombocytopen: No Tetanus Vaccination: > 5 Years Past Surgical History Coronary Artery Bypass Graft: No Neurologic Surgery: Yes ([place]) Social History Alcohol Use: Yes (RARE) Tobacco Use: Yes (2-3 CIGARETTES DAILY) Substance Use: Yes (marijuana) Allergies-Medications (Allergen,Severity, Reaction): Coded Allergies: albuterol (Verified Allergy, Intermediate, Hives, 10/13/17) shortness of breath Reported Meds & Prescriptions Reported Meds & Active Scripts Active Magic Mouthwash Adult Liq (Multi-Ingredient Mouthwash/Gargle) 120 Ml Susp 10 Ml SWISH-SWAL QID Pantoprazole (Pantoprazole Sodium) 40 Mg Tab 40 Mg PO DAILY Ipratropium Neb (Ipratropium [place]) 0.5 Mg/2.5 Ml Amp 0.5 Mg NEB Q6HR NEB PRN Reported Gabapentin 100 Mg Cap 100 Mg PO BID Tramadol (Tramadol HCl) 50 Mg Tab 50 Mg PO DAILY PRN Xiidra Opth Drops (Lifitegrast Opth Drops) 5% Drops 1 Drop EACH EYE QOD Review of Systems Except as stated in HPI: all other systems reviewed are Neg Physical Exam Narrative GENERAL: Well-nourished, well-developed male in no acute distress. SKIN: Warm and dry. HEAD: Normocephalic. Atraumatic. EYES: No scleral icterus. No injection or drainage. PERRLA. EOMI. ENT: Pearly watson tympanic membranes bilaterally. Nasal mucosa is moist. Oropharynx without erythema, edema or exudate. NECK: Supple, trachea midline. No JVD or lymphadenopathy. CARDIOVASCULAR: Regular rate and rhythm without murmurs, gallops, or rubs. RESPIRATORY: Breath sounds clear and equal bilaterally. No accessory muscle use. GASTROINTESTINAL: Abdomen soft, non-tender, nondistended. + Bowel sounds MUSCULOSKELETAL: No cyanosis, or edema. BACK: Nontender without obvious deformity. No CVA tenderness. Data Data Last Documented VS Vital Signs Date Time Temp Pulse Resp B/P (MAP) Pulse Ox O2 Delivery O2 Flow Rate FiO2 10/13/17 14:59 98 10/13/17 13:46 100.5 10/13/17 12:32 18 100 Orders Orders Complete Blood Count With Diff (10/13/17 12:50) Comprehensive Metabolic Panel (10/13/17 12:50) Lipase (10/13/17 12:50) Prothrombin Time / Inr (Pt) (10/13/17 12:50) Act Partial Throm Time (Ptt) (10/13/17 12:50) Urinalysis - C+S If Indicated (10/13/17 12:50) Chest, Pa & Lat (10/13/17 ) Lactic Acid Sepsis Protocol (10/13/17 12:50) Influenzae A/B Antigen (10/13/17 13:51) Acetaminophen (Tylenol) (10/13/17 14:00) Sodium Chlor 0.9% 1000 Ml Inj (Ns 1000 M (10/13/17 14:00) Ondansetron Inj (Zofran Inj) (10/13/17 14:00) Iv Access Insert/Monitor (10/13/17 13:51) Ecg Monitoring (10/13/17 13:51) Oximetry (10/13/17 13:51) Ceftriaxone Inj (Rocephin Inj) (10/13/17 15:00) Azithromycin Inj (Zithromax Inj) (10/13/17 15:00) Blood Culture (10/13/17 14:46) Place In Observation (10/13/17 ) Vital Signs (Adult) Q4H (10/13/17 15:56) Activity Oob With Assistance (10/13/17 15:56) Seater Assembler / Telemetry .CONTINUOUS (10/13/17 15:56) Diet Regular Basic (10/13/17 Dinner) Sodium Chlor 0.9% 1000 Ml Inj (Ns 1000 M (10/13/17 15:56) Sodium Chloride 0.9% Flush (Ns Flush) (10/13/17 16:00) Sodium Chloride 0.9% Flush (Ns Flush) (10/13/17 21:00) Basic Metabolic Panel (Bmp) (10/14/17 06:00) Complete Blood Count With Diff (10/14/17 06:00) Pt Request For Service (10/13/17 15:56) Case Management Consult (10/13/17 15:56) Naloxone Inj (Narcan Inj) (10/13/17 16:00) Clindamycin 900 Mg/Ns Premix (Cleocin 90 (10/13/17 16:00) Lactobacillus Acidophilus Pkt (Lactinex (10/13/17 18:00) Admit Order (Ed Use Only) (10/13/17 15:55) Labs Laboratory Tests Test 10/13/17 12:45 White Blood Count 2.6 TH/MM3 Red Blood Count 3.21 MIL/MM3 Hemoglobin 10.3 GM/DL Hematocrit 30.3 % Mean Corpuscular Volume 94.5 FL Mean Corpuscular Hemoglobin 32.1 PG Mean Corpuscular Hemoglobin Concent 34.0 % Red Cell Distribution Width 14.2 % Platelet Count 143 TH/MM3 Mean Platelet Volume 9.0 FL Neutrophils (%) (Auto) 52.7 % Lymphocytes (%) (Auto) 22.4 % Monocytes (%) (Auto) 18.1 % Eosinophils (%) (Auto) 6.4 % Basophils (%) (Auto) 0.4 % Neutrophils # (Auto) 1.4 TH/MM3 Lymphocytes # (Auto) 0.6 TH/MM3 Monocytes # (Auto) 0.5 TH/MM3 Eosinophils # (Auto) 0.2 TH/MM3 Basophils # (Auto) 0.0 TH/MM3 CBC Comment AUTO DIFF Differential Comment AUTO DIFF CONFIRMED Platelet Estimate LOW Platelet Morphology Comment NORMAL Ovalocytes 1+ Prothrombin Time 10.6 SEC Prothromb Time International Ratio 1.0 RATIO Activated Partial Thromboplast Time 32.0 SEC Urine Color YELLOW Urine Turbidity CLEAR Urine pH 6.5 Urine Specific [place] 1.021 Urine Protein 100 mg/dL Urine Glucose (UA) NEG mg/dL Urine Ketones NEG mg/dL Urine Occult Blood NEG Urine Nitrite NEG Urine Bilirubin NEG Urine Urobilinogen 4.0 MG/DL Urine Leukocyte Esterase NEG Urine RBC LESS THAN 1 /hpf Urine WBC 2 /hpf Urine Squamous Epithelial Cells <1 /hpf Urine Hyaline Casts 1 /lpf Urine Mucus FEW /lpf Microscopic Urinalysis Comment CULT NOT INDICATED Blood Urea Nitrogen 16 MG/DL Creatinine 1.05 MG/DL Random Glucose 98 MG/DL Total Protein 8.2 GM/DL Albumin 3.8 GM/DL Calcium Level 9.3 MG/DL Alkaline Phosphatase 68 U/L Aspartate Amino Transf (AST/SGOT) 18 U/L Alanine Aminotransferase (ALT/SGPT) 16 U/L Total Bilirubin 0.5 MG/DL Sodium Level 135 MEQ/L Potassium Level 4.1 MEQ/L Chloride Level 100 MEQ/L Carbon Dioxide Level 28.3 MEQ/L Anion Gap 7 MEQ/L Estimat Glomerular Filtration Rate 95 ML/MIN Lactic Acid Level 1.3 mmol/L Lipase 112 U/L [facility] Medical Decision Making Medical Screen Exam Complete: Yes Emergency Medical Condition: Yes Differential Diagnosis Viral syndrome versus bronchitis versus influenza versus pneumonia versus other Narrative Course 42-year-old HIV positive male presents to the ED for evaluation of 2 week history of headaches, fevers, chills, sinus congestion, runny nose, cough occasionally productive of yellow phlegm, nausea, vomiting, low appetite. He has been treating with OTC medications at home. Patient is unsure of his CD4 count or viral load. He states that he has been unable to take his antiviral medications secondary to nausea and vomiting. He did not receive this years flu shot. Temp 100.5, pulse 100, BP 133/91, O2 sats 100% on presentation. Physical exam reveals an Afro-Irish male in no acute distress. ENT exam is unremarkable. Chest CTAB. Abdomen soft and nontender. IV was established. Patient was administered 1 L normal saline, 4 mg Zofran IV and 500 mg Tylenol by mouth. CBC: WBC 2.6. Hemoglobin 10.3. Platelets 143. CMP unremarkable. Lactic acid 1.3. UA: No culture indicated. Flu swab negative. CXR: Right upper lobe consolidation suspicious for pneumonia. Blood cultures were obtained. Patient was administered IV Rocephin and azithromycin. Given pneumonia and leukopenia in an immunocompromised patient, we will admit. I spoke with who agrees to accept the patient to the medical service. Please see their notes for disposition. Kezia Sanchez Oct 13, 2017 13:56
[2017-10-13 14:00] LABS: OVALOCYTES 1+ (NORMAL)
[2017-10-13] MEDS ORDERED: SODIUM CHLOR 0.9% 1000 ML INJ 1,000 ML IV ONE (14:00)
[2017-10-13] MEDS ORDERED: ONDANSETRON HCL 4 MG/2 ML VIAL IV PUSH ONE (14:00)
[2017-10-13] MEDS ORDERED: ACETAMINOPHEN 325 MG TAB PO ONE (14:00)
--- NOTE | 2017-10-13 14:05 | RADRPT ---
EXAM DATE/TIME: 10/13/2017 13:37 [place] COMPARISON: No previous studies available for comparison. INDICATIONS : Fever, short of breath, diarrhea, nausea with vomiting x3 weeks. MEDICAL HISTORY : None. SURGICAL HISTORY : None. ENCOUNTER: Initial ACUITY: 3 weeks PAIN SCORE: 0/10 LOCATION: Bilateral chest FINDINGS: Airspace consolidation in the inferior right upper lobe abutting the minor fissure. Cardiomediastinal contours are within normal limits. Bony thorax is intact. CONCLUSION: 1. Right upper lobe airspace consolidation consistent with pneumonia given history. Jim Calixto MD on October 13, 2017 at 14:03 Board Certified Radiologist. This report was verified electronically.
--- NOTE | 2017-10-13 14:56 | PD ---
Data Data Last Documented VS Vital Signs Date Time Temp Pulse Resp B/P (MAP) Pulse Ox O2 Delivery O2 Flow Rate FiO2 10/13/17 14:59 98 10/13/17 13:46 100.5 10/13/17 12:32 18 100 Orders Orders Complete Blood Count With Diff (10/13/17 12:50) Comprehensive Metabolic Panel (10/13/17 12:50) Lipase (10/13/17 12:50) Prothrombin Time / Inr (Pt) (10/13/17 12:50) Act Partial Throm Time (Ptt) (10/13/17 12:50) Urinalysis - C+S If Indicated (10/13/17 12:50) Chest, Pa & Lat (10/13/17 ) Lactic Acid Sepsis Protocol (10/13/17 12:50) Influenzae A/B Antigen (10/13/17 13:51) Acetaminophen (Tylenol) (10/13/17 14:00) Sodium Chlor 0.9% 1000 Ml Inj (Ns 1000 M (10/13/17 14:00) Ondansetron Inj (Zofran Inj) (10/13/17 14:00) Iv Access Insert/Monitor (10/13/17 13:51) Ecg Monitoring (10/13/17 13:51) Oximetry (10/13/17 13:51) Ceftriaxone Inj (Rocephin Inj) (10/13/17 15:00) Azithromycin Inj (Zithromax Inj) (10/13/17 15:00) Blood Culture (10/13/17 14:46) Place In Observation (10/13/17 ) Vital Signs (Adult) Q4H (10/13/17 15:56) Activity Oob With Assistance (10/13/17 15:56) Java Sdet / Telemetry .CONTINUOUS (10/13/17 15:56) Diet Regular Basic (10/13/17 Dinner) Sodium Chlor 0.9% 1000 Ml Inj (Ns 1000 M (10/13/17 15:56) Sodium Chloride 0.9% Flush (Ns Flush) (10/13/17 16:00) Sodium Chloride 0.9% Flush (Ns Flush) (10/13/17 21:00) Basic Metabolic Panel (Bmp) (10/14/17 06:00) Complete Blood Count With Diff (10/14/17 06:00) Pt Request For Service (10/13/17 15:56) Case Management Consult (10/13/17 15:56) Naloxone Inj (Narcan Inj) (10/13/17 16:00) Clindamycin 900 Mg/Ns Premix (Cleocin 90 (10/13/17 17:00) Lactobacillus Acidophilus Pkt (Lactinex (10/13/17 18:00) Admit Order (Ed Use Only) (10/13/17 15:55) Labs Laboratory Tests Test 10/13/17 12:45 White Blood Count 2.6 TH/MM3 Red Blood Count 3.21 MIL/MM3 Hemoglobin 10.3 GM/DL Hematocrit 30.3 % Mean Corpuscular Volume 94.5 FL Mean Corpuscular Hemoglobin 32.1 PG Mean Corpuscular Hemoglobin Concent 34.0 % Red Cell Distribution Width 14.2 % Platelet Count 143 TH/MM3 Mean Platelet Volume 9.0 FL Neutrophils (%) (Auto) 52.7 % Lymphocytes (%) (Auto) 22.4 % Monocytes (%) (Auto) 18.1 % Eosinophils (%) (Auto) 6.4 % Basophils (%) (Auto) 0.4 % Neutrophils # (Auto) 1.4 TH/MM3 Lymphocytes # (Auto) 0.6 TH/MM3 Monocytes # (Auto) 0.5 TH/MM3 Eosinophils # (Auto) 0.2 TH/MM3 Basophils # (Auto) 0.0 TH/MM3 CBC Comment AUTO DIFF Differential Comment AUTO DIFF CONFIRMED Platelet Estimate LOW Platelet Morphology Comment NORMAL Ovalocytes 1+ Prothrombin Time 10.6 SEC Prothromb Time International Ratio 1.0 RATIO Activated Partial Thromboplast Time 32.0 SEC Urine Color YELLOW Urine Turbidity CLEAR Urine pH 6.5 Urine Specific [place] 1.021 Urine Protein 100 mg/dL Urine Glucose (UA) NEG mg/dL Urine Ketones NEG mg/dL Urine Occult Blood NEG Urine Nitrite NEG Urine Bilirubin NEG Urine Urobilinogen 4.0 MG/DL Urine Leukocyte Esterase NEG Urine RBC LESS THAN 1 /hpf Urine WBC 2 /hpf Urine Squamous Epithelial Cells <1 /hpf Urine Hyaline Casts 1 /lpf Urine Mucus FEW /lpf Microscopic Urinalysis Comment CULT NOT INDICATED Blood Urea Nitrogen 16 MG/DL Creatinine 1.05 MG/DL Random Glucose 98 MG/DL Total Protein 8.2 GM/DL Albumin 3.8 GM/DL Calcium Level 9.3 MG/DL Alkaline Phosphatase 68 U/L Aspartate Amino Transf (AST/SGOT) 18 U/L Alanine Aminotransferase (ALT/SGPT) 16 U/L Total Bilirubin 0.5 MG/DL Sodium Level 135 MEQ/L Potassium Level 4.1 MEQ/L Chloride Level 100 MEQ/L Carbon Dioxide Level 28.3 MEQ/L Anion Gap 7 MEQ/L Estimat Glomerular Filtration Rate 95 ML/MIN Lactic Acid Level 1.3 mmol/L Lipase 112 U/L [facility] Medical Record Reviewed: Yes Supervised Visit with CHU: Yes Narrative Course I, Dr. Avilez, have reviewed the advance practice practitioner's documentation and am in agreement, met with the patient face to face, made the diagnosis, and the medical decision making was done by me. *My assessment and Findings: The patient is febrile leukopenic with HIV and will be admitted for diagnosis and treatment of the same. Vital Signs Date Time Temp Pulse Resp B/P (MAP) Pulse Ox O2 Delivery O2 Flow Rate FiO2 10/13/17 14:59 98 10/13/17 13:46 100.5 100 133/91 (105) 10/13/17 13:28 98.9 10/13/17 12:32 99.4 106 18 134/83 (100) 100 Noé Avilez MD Oct 13, 2017 14:56
[2017-10-13] MEDS ORDERED: AZITHROMYCIN INJ 500 MG in SODIUM CHLOR 0.9% 250 ML INJ 250 ML IV ONE (15:00)
[2017-10-13] MEDS ORDERED: cefTRIAXone INJ 1,000 MG in SODIUM CHLORIDE 0.9% INJ 100 ML IV ONE (15:00)
[2017-10-13] MEDS ORDERED: NALOXONE HCL 0.4 MG/ML AMP IV PUSH PRN (16:00)
[2017-10-13] MEDS ORDERED: SODIUM CHLORIDE 0.9% FLUSH 10 ML FLUSH IV FLUSH PRN (16:00)
--- NOTE | 2017-10-13 17:54 | HHI.HP ---
[facility] JOO Guadarrama Admission Diagnosis RUL PNA Diagnoses: (1) Right upper lobe pneumonia Diagnosis: Principal (2) HIV disease (3) Burkitt lymphoma (4) Dara esophagitis Chief Complaint: Cough, fevers, chills, nausea. Travel History International Travel<30 Days: No Contact w/Intl Traveler <30 Da: No Traveled to Known Affected Are: No History of Present Illness 42-year-old male presented to the ED today with complaints of aches, fevers, chills, cough, nausea, and constipation. She has a past medical history of HIV, Burkitt's lymphoma, and chronic dry eyes. She reports that he was in [place] out the snow around the third or fifth of this month. And he returned back to [place] around the or he began experiencing headaches, nausea, vomiting, constipation, cough, fevers, chills. She states that he [facility] and started on HIV medications and antibiotics around the 27 of September. He feels as though he was sick by the time he was in to follow with HIV doctor. He reports nausea, with some vomiting when eating large meals. He states that he has been able to keep foods and fluids down as long as he eats small meals at a time. He complains of constipation, repots his last BM or of this month. He endorses abdominal pain, reports not passing gas, repots painful BM due to hemorrhoids. He repots spots of blood with his last BM, denies robert red bleeding or black stools. Repots cough that is productive, yellow in color, SOB at rest and on exertion. He reports feeling like his chest is "closing in". Endorses night sweats for the past week, fevers and chills for the past two weeks. Endorses chest pain when he coughs, and takes a deep breath. He repots lack of appetite and nausea. He has been experiencing along with some dizziness for which she has been taking Tylenol at home. Reports headaches as his usual headaches which he has experienced in the past, and denies any visual changes or weakness. He denies any trouble swallowing, chocking, or coughing. His been able to eat regular foods and regular consistency liquids liver has been having small meals at a time due to nausea and vomiting. He states he has been unable to keep medications down due to ongoing nausea and vomiting. Review of Systems Constitutional: COMPLAINS OF: Fever, Weight loss, Dizziness Respiratory: COMPLAINS OF: Cough, Sputum production, Shortness of breath Cardiovascular: COMPLAINS OF: Chest pain Gastrointestinal: COMPLAINS OF: Abdominal pain, Nausea, Vomiting Except as stated in HPI: all other systems reviewed are Neg Past Family Social History Past Medical History HIV (unknown CD4) Burkitt's Lymphoma Neuropathy Anemia Past Surgical History Alf Port Reported Medications Allergies: Coded Allergies: albuterol (Verified Allergy, Intermediate, Hives, 10/13/17) shortness of breath Active Ordered Medications Reported Meds & Active Scripts Active Magic Mouthwash Adult Liq (Multi-Ingredient Mouthwash/Gargle) 120 Ml Susp 10 Ml SWISH-SWAL QID Pantoprazole (Pantoprazole Sodium) 40 Mg Tab 40 Mg PO DAILY Ipratropium Neb (Ipratropium Flatgap) 0.5 Mg/2.5 Ml Amp 0.5 Mg NEB Q6HR NEB PRN Reported Gabapentin 100 Mg Cap 100 Mg PO BID (patient denies taking gabapentin at home) Tramadol (Tramadol HCl) 50 Mg Tab 50 Mg PO DAILY PRN Xiidra Opth Drops (Lifitegrast Opth Drops) 5% Drops 1 Drop EACH EYE QOD Family History Mother: Skin melanoma Social History Tobacco: Occasional cigar as well as cigarettes, patient reports trying to quit for the past month. Alcohol: socially Illicit drug use: Marijuana 2x per week. Physical Exam Vital Signs Vital Signs Date Time Temp Pulse Resp B/P (MAP) Pulse Ox O2 Delivery O2 Flow Rate FiO2 10/13/17 17:10 105/64 (78) 10/13/17 14:59 98 10/13/17 13:46 100.5 100 133/91 (105) 10/13/17 13:28 98.9 10/13/17 12:32 99.4 106 18 134/83 (100) 100 Physical Exam GENERAL: This is a well-nourished, well-developed patient, in no apparent distress. SKIN: No ecchymoses, sided orbital skin dryness and flaking, no open sores. Cool and dry. HEAD: Atraumatic. Normocephalic, is a little port on right side of the head. No temporal or scalp tenderness. EYES: Pupils equal round and reactive. Extraocular motions intact. Mild bilateral scleral redness. No injection or drainage. ENT: Nose without bleeding, purulent drainage or septal hematoma. Throat without erythema, white patch covering tongue. Uvula midline. Airway patent. NECK: Trachea midline. No JVD or lymphadenopathy. Supple, nontender. CARDIOVASCULAR: Regular rate and rhythm without murmurs, gallops, or rubs. RESPIRATORY: Bilateral lower lobes diminished. No wheezes, rales, or rhonchi. GASTROINTESTINAL: Abdomen soft, mild tenderness, nondistended. No palpable masses. No guarding. MUSCULOSKELETAL: Extremities without clubbing, cyanosis, or edema. No joint tenderness, effusion, or edema noted. No calf tenderness. NEUROLOGICAL: Awake and alert oriented x3. Cranial nerves II through XII intact. Motor and sensory grossly within normal limits. Five out of 5 muscle strength in all muscle groups. Normal speech. Laboratory Laboratory Tests Test 10/13/17 12:45 White Blood Count 2.6 Red Blood Count 3.21 Hemoglobin 10.3 Hematocrit 30.3 Mean Corpuscular Volume 94.5 Mean Corpuscular Hemoglobin 32.1 Mean Corpuscular Hemoglobin Concent 34.0 Red Cell Distribution Width 14.2 Platelet Count 143 Mean Platelet Volume 9.0 Neutrophils (%) (Auto) 52.7 Lymphocytes (%) (Auto) 22.4 Monocytes (%) (Auto) 18.1 Eosinophils (%) (Auto) 6.4 Basophils (%) (Auto) 0.4 Neutrophils # (Auto) 1.4 Lymphocytes # (Auto) 0.6 Monocytes # (Auto) 0.5 Eosinophils # (Auto) 0.2 Basophils # (Auto) 0.0 CBC Comment AUTO DIFF Differential Comment AUTO DIFF CONFIRMED Platelet Estimate LOW Platelet Morphology Comment NORMAL Ovalocytes 1+ Prothrombin Time 10.6 Prothromb Time International Ratio 1.0 Activated Partial Thromboplast Time 32.0 Urine Color YELLOW Urine Turbidity CLEAR Urine pH 6.5 Urine Specific [place] 1.021 Urine Protein 100 Urine Glucose (UA) NEG Urine Ketones NEG Urine Occult Blood NEG Urine Nitrite NEG Urine Bilirubin NEG Urine Urobilinogen 4.0 Urine Leukocyte Esterase NEG Urine RBC LESS THAN 1 Urine WBC 2 Urine Squamous Epithelial Cells <1 Urine Hyaline Casts 1 Urine Mucus FEW Microscopic Urinalysis Comment CULT NOT INDICATED Blood Urea Nitrogen 16 Creatinine 1.05 Random Glucose 98 Total Protein 8.2 Albumin 3.8 Calcium Level 9.3 Alkaline Phosphatase 68 Aspartate Amino Transf (AST/SGOT) 18 Alanine Aminotransferase (ALT/SGPT) 16 Total Bilirubin 0.5 Sodium Level 135 Potassium Level 4.1 Chloride Level 100 Carbon Dioxide Level 28.3 Anion Gap 7 Estimat Glomerular Filtration Rate 95 Lactic Acid Level 1.3 Lipase 112 Date/Time Source Procedure Growth Status 10/13/17 15:10 Blood Peripheral Aerobic Blood Culture Pending Received 10/13/17 15:10 Blood Peripheral Anaerobic Blood Culture Pending Received 10/13/17 14:05 Nasal Washing Influenza Types A,B Antigen (SHAILESH) - Final NEGATIVE FOR FLU A AND B ANTIGEN.... Complete Result Diagram: 10/13/17 1245 10/13/17 1245 Imaging Last Impressions Chest X-Ray 10/13/17 0000 Signed Impressions: Service Date/Time: Friday, October 13, 2017 13:37 - CONCLUSION: 1. Right upper lobe airspace consolidation consistent with pneumonia given history. MD Marina Venegas VTE Risk Assessment Caprinchristina VTE Risk Assessment: No/Low Risk (score <= 1) Caprini Risk Assessment Model Point Value = 1 Point Value = 2 Point Value = 3 Point Value = 5 Age 41-60 Minor surgery BMI > 25 kg/m2 Swollen legs Varicose veins or History of unexplained or recurrent spontaneous Oral contraceptives or hormone replacement Sepsis (< 1 month) Serious lung disease, including pneumonia (< 1 month) Abnormal pulmonary function Acute myocardial infarction Congestive heart failure (< 1 month) History of inflammatory bowel disease Medical patient at bed rest Age 61-74 Arthroscopic surgery Major open surgery (> 45 min) Laparoscopic surgery (> 45 min) Malignancy Confined to bed (> 72 hours) Immobilizing plaster cast Central venous access Age >= 75 History of VTE Family history of VTE Factor V Leiden Prothrombin [id number] Lupus anticoagulant Anticardiolipin antibodies Elevated serum homocysteine Heparin-induced thrombocytopenia Other congenital or acquired thrombophilia Stroke (< 1 month) Elective arthroplasty Hip, pelvis, or leg fracture Acute spinal cord injury (< 1 month) Prophylaxis Regimen Total Risk Factor Score Risk Level Prophylaxis Regimen 0-1 Low Early ambulation 2 Moderate Order ONE of the following: *Sequential Compression Device (SCD) *Heparin 5000 units SQ BID 3-4 Higher Order ONE of the following medications: *Heparin 5000 units SQ TID *Enoxaparin/Lovenox 40 mg SQ daily (WT < 150 kg, CrCl > 30 mL/min) *Enoxaparin/Lovenox 30 mg SQ daily (WT < 150 kg, CrCl > 10-29 mL/min) *Enoxaparin/Lovenox 30 mg SQ BID (WT < 150 kg, CrCl > 30 mL/min) AND/OR *Sequential Compression Device (SCD) 5 or more Highest Order ONE of the following medications: *Heparin 5000 units SQ TID (Preferred with Epidurals) *Enoxaparin/Lovenox 40 mg SQ daily (WT < 150 kg, CrCl > 30 mL/min) *Enoxaparin/Lovenox 30 mg SQ daily (WT < 150 kg, CrCl > 10-29 mL/min) *Enoxaparin/Lovenox 30 mg SQ BID (WT < 150 kg, CrCl > 30 mL/min) AND *Sequential Compression Device (SCD) Assessment and Plan Assessment and Plan 42-year-old male who is HIV positive, unknown last CD4 count, history of Burkitt 's Lymphoma, neuropathy, and anemia presents to the ED with complaints of cough , SOB, fever, chills, nausea, and vomiting. Community acquired pneumonia Possibly aspiration pneumonia - Complaints of cough productive cough, shortness of breath, fevers, chills, on HIV patient. - Chest x-ray completed in ED reviewed, as per his consolidation noted in inferior right upper lobe consistent with pneumonia. - WBC count 2.6, lymphocytes 22.4, T-MAX 100.5 with HR 100. Lactic acid 1.3. Oxygen saturation 100% on room air. - Ceftriaxone 1000 mg IV along with azithromycin 500 mg IV while in the ED - BC x2 drawn follow results, Nasal washings negative for flu A and B, UA negative - Admit to observation unit, O2 via nasal cannula as needed - Clindamycin 900 mg IV every 8hrs, continue monitoring clinically - Encouraged incentive spirometry, allergic to albuterol. Nausea/vomiting Oral candidiasis -Ongoing nausea/vomiting/abdominal pain. Possibility related to pneumonia although sounds more like gastroparesis given his history. - Was last seen by GI in May of 2017 at that time he underwent EGD which showed exudate consistent with esophageal candidal infection. She also underwent colonoscopy which was normal. - Consult GI, appreciate recommendations - Will start by mouth fluconazole 100 mg by mouth, oral hygiene Constipation,acute -Patient reports last bowel movement around seventh or eighth of this month. ? history as he reports he is able to eat, just in smaller portions, he also has active bowel sounds in all quadrants. - Will add bowel regimen - Check KUB Burkitt's Lymphoma - Patient is s/p chemo. Last seen by oncologist in July 2017 - In remission, recommended follow-up mid December DVT prophylaxis- SCDs, early ambulation Discussed Condition With Desiree Castañeda Oct 13, 2017 17:54
[2017-10-13] MEDS: SODIUM CHLOR 0.9% 1000 ML INJ 1,000 ML IV SCH (18:15)
[2017-10-13] MEDS: CLINDAMYCIN 900 MG/NS PREMIX 50 ML IV SCH (18:15)
[2017-10-13] MEDS ORDERED: SENNOSIDES 8.6 MG TAB PO PRN (18:45)
[2017-10-13] MEDS ORDERED: LACTULOSE SYRUP 20 GM/30 ML CUP PO PRN (18:45)
[2017-10-13] MEDS ORDERED: ONDANSETRON HCL 4 MG/2 ML VIAL IV PUSH PRN (18:45)
[2017-10-13] MEDS ORDERED: BISACODYL 10 MG SUPP RECTAL PRN (18:45)
[2017-10-13] MEDS ORDERED: MAGNESIUM HYDROXIDE SUSP 30 ML CUP PO PRN (18:45)
[2017-10-13] MEDS: LACTOBACILLUS ACIDOPHILUS 1 GM PACKET PO SCH ×2 (18:45→20:55)
--- NOTE | 2017-10-13 19:16 | RADRPT ---
EXAM DATE/TIME: 10/13/2017 18:53 [place] COMPARISON: ABDOMEN KUB ONLY, February 12, 2017, 13:26. INDICATIONS : Abdominal pain. MEDICAL HISTORY : None. SURGICAL HISTORY : None. ENCOUNTER: Initial ACUITY: 1 day PAIN SCORE: 7/10 LOCATION: Bilateral abdomen FINDINGS: Supine view of the abdomen was performed. The abdominal bowel gas pattern is normal, except mild con stipation. No abnormal masses, calcifications, or organomegaly is seen. The osseous structures are unremarkable. CONCLUSION: 1. Mild constipation. No acute findings. Jj Arenas MD on October 13, 2017 at 19:12 Board Certified Radiologist. This report was verified electronically.
[2017-10-13] MEDS: SODIUM CHLORIDE 0.9% FLUSH 10 ML FLUSH IV FLUSH SCH (20:53)
[2017-10-13] MEDS: DOCUSATE SODIUM 50 MG/SENNA 8.6 MG TAB PO SCH (20:55)
[2017-10-14] VITALS (7 sets, daily range): BP systolic 100–135; BP diastolic 58–75; PULSE 72–95; RESP 18–20; TEMP 97.6–98.3; O2SAT 99–100
[2017-10-14] MEDS: CLINDAMYCIN 900 MG/NS PREMIX 50 ML IV SCH ×2 (01:00→09:28)
[2017-10-14] MEDS: SODIUM CHLOR 0.9% 1000 ML INJ 1,000 ML IV SCH ×2 (01:52→09:28)
--- NOTE | 2017-10-14 09:08 | PD.CONS ---
HPI History of Present Illness This is a 42 year old with hx Burkitt's lymphoma, HIV, maryana esophagitis who presented to the ER after he "blacked out and woke up on the floor 2 days ago." GI has been consulted for HIV and n/v for 2 weeks. He has been having nausea and non-bloody emesis for the last 2 weeks, as well as lower abd pain, constipation. Also admits "chest pain" and indicates epigastric area, the pain radiates downward. Denies SOB. Has not had BM in 2 weeks. Today he denies n/ v. No diarrhea. Had change in HIV meds about 2 weeks ago but says he hasn't actually kept down the new medication d/t n/v. Has been given miralax, colace. He is passing gas, after getting colace yesterday. Overall he is feeling better than he has in 2 weeks and is studying the breakfast menu. He had colonoscopy 05/[address] Del Valle found normal rectum and cecum, no further info per report. Had EGD at that time as well showing exudate esohpagus consistent with maryana, gastritis. (Alicia Simon) PFSH Past Medical History HIV (unknown CD4) Burkitt's Lymphoma Neuropathy Anemia Past Surgical History Alf Port (Alicia Simon) Coded Allergies: albuterol (Verified Allergy, Intermediate, Hives, 10/13/17) shortness of breath Family History Mother: Skin melanoma Social History Tobacco: Occasional cigar as well as cigarettes, patient reports trying to quit for the past month. Alcohol: socially Illicit drug use: Marijuana 2x per week. (Alicia Simon) Review of Systems Constitutional: DENIES: Fever, Weight loss Endocrine: DENIES: Polydipsia Eyes: DENIES: Blurred vision Ears, nose, mouth, throat: DENIES: Hearing loss Respiratory: DENIES: Cough Cardiovascular: DENIES: Chest pain Gastrointestinal: COMPLAINS OF: Abdominal pain, Constipation, Nausea, Vomiting , DENIES: Black stools, Bloody stools, Diarrhea, Hematemesis Genitourinary: DENIES: Hematuria Musculoskeletal: DENIES: Joint Swelling Integumentary: DENIES: Pruritus Hematologic/lymphatic: DENIES: Bruising Neurologic: DENIES: Abnormal gait Psychiatric: DENIES: Confusion (Alicia Simon) GI Exam Vitals I&O Vital Signs Date Time Temp Pulse Resp B/P (MAP) Pulse Ox O2 Delivery O2 Flow Rate FiO2 10/14/17 07:01 98.2 80 18 112/68 (83) 99 10/14/17 04:44 98.3 82 18 100/58 (72) 99 10/13/17 21:44 98.0 61 18 107/66 (80) 99 10/13/17 19:00 98 10/13/17 17:10 105/64 (78) 10/13/17 14:59 98 10/13/17 13:46 100.5 100 133/91 (105) 10/13/17 13:28 98.9 10/13/17 12:32 99.4 106 18 134/83 (100) 100 Imaging Last Impressions Chest X-Ray 10/13/17 0000 Signed Impressions: Service Date/Time: Friday, October 13, 2017 13:37 - CONCLUSION: 1. Right upper lobe airspace consolidation consistent with pneumonia given history. Jim Calixto MD Abdomen X-Ray 10/13/17 0000 Signed Impressions: Service Date/Time: Friday, October 13, 2017 18:53 - CONCLUSION: 1. Mild constipation. No acute findings. Jj Arenas MD Laboratory Test 10/13/17 12:45 10/14/17 07:08 10/14/17 07:18 White Blood Count 2.6 TH/MM3 Red Blood Count 3.21 MIL/MM3 Hemoglobin 10.3 GM/DL Hematocrit 30.3 % Mean Corpuscular Volume 94.5 FL Mean Corpuscular Hemoglobin 32.1 PG Mean Corpuscular Hemoglobin Concent 34.0 % Red Cell Distribution Width 14.2 % Platelet Count 143 TH/MM3 Mean Platelet Volume 9.0 FL Neutrophils (%) (Auto) 52.7 % Lymphocytes (%) (Auto) 22.4 % Monocytes (%) (Auto) 18.1 % Eosinophils (%) (Auto) 6.4 % Basophils (%) (Auto) 0.4 % Neutrophils # (Auto) 1.4 TH/MM3 Lymphocytes # (Auto) 0.6 TH/MM3 Monocytes # (Auto) 0.5 TH/MM3 Eosinophils # (Auto) 0.2 TH/MM3 Basophils # (Auto) 0.0 TH/MM3 CBC Comment AUTO DIFF Differential Comment AUTO DIFF CONFIRMED Platelet Estimate LOW Platelet Morphology Comment NORMAL Ovalocytes 1+ Prothrombin Time 10.6 SEC Prothromb Time International Ratio 1.0 RATIO Activated Partial Thromboplast Time 32.0 SEC Urine Color YELLOW Urine Turbidity CLEAR Urine pH 6.5 Urine Specific [place] 1.021 Urine Protein 100 mg/dL Urine Glucose (UA) NEG mg/dL Urine Ketones NEG mg/dL Urine Occult Blood NEG Urine Nitrite NEG Urine Bilirubin NEG Urine Urobilinogen 4.0 MG/DL Urine Leukocyte Esterase NEG Urine RBC LESS THAN 1 /hpf Urine WBC 2 /hpf Urine Squamous Epithelial Cells <1 /hpf Urine Hyaline Casts 1 /lpf Urine Mucus FEW /lpf Microscopic Urinalysis Comment CULT NOT INDICATED Blood Urea Nitrogen 16 MG/DL Creatinine 1.05 MG/DL Random Glucose 98 MG/DL Total Protein 8.2 GM/DL Albumin 3.8 GM/DL Calcium Level 9.3 MG/DL Alkaline Phosphatase 68 U/L Aspartate Amino Transf (AST/SGOT) 18 U/L Alanine Aminotransferase (ALT/SGPT) 16 U/L Total Bilirubin 0.5 MG/DL Sodium Level 135 MEQ/L Potassium Level 4.1 MEQ/L Chloride Level 100 MEQ/L Carbon Dioxide Level 28.3 MEQ/L Anion Gap 7 MEQ/L Estimat Glomerular Filtration Rate 95 ML/MIN Lactic Acid Level 1.3 mmol/L Lipase 112 U/L Date/Time Source Procedure Growth Status 10/13/17 15:10 Blood Peripheral Aerobic Blood Culture Pending Received 10/13/17 15:10 Blood Peripheral Anaerobic Blood Culture Pending Received 10/13/17 14:05 Nasal Washing Influenza Types A,B Antigen (SHAILESH) - Final NEGATIVE FOR FLU A AND B ANTIGEN.... Complete Physical Examination HEENT: PERRL; normocephalic; atraumatic; no jaundice. CHEST: diminished CARDIAC: RRR ABDOMEN: Soft, nondistended, mild lower abd TTP; no hepatosplenomegaly; bowel sounds are present in all four quadrants. EXTREMITIES: No clubbing, cyanosis, or edema. SKIN: Normal; no rash; no jaundice. RADIATOR FITTER: No focal deficits; alert and oriented times three. (Alicia Simon) Assessment and Plan Plan ASSESSMENT - n/v - suspect at least in part d/t constipation, no bm in 2 weeks. KUB 10/13 showed mild constipation got colace in ER and says he then started passing gas and feels better today , wants to eat. Had EGD 05/2017 consistent with maryana esophagitis, gastritis, path maryana. - recent change bowel habits - constipation 2 weeks ago. had colonoscopy 2016 normal rectum and cecum. PLAN - [facility] - consider repeat colonoscopy - further recs to follow pt seen by myself and Dr Hayes and this note is written on his behalf (Alicia Simon) Physician Comments Seen and examined with JOO, working on [facility]. Previous egd/colonoscopy from 06/07 reviewed. EGD planned for tomorrow. Repeat kub in am. Thank you (Marcelle Hayes MD) Alicia Simon Oct 14, 2017 09:08 Marcelle Hayes MD Oct 14, 2017 13:27
[2017-10-14 09:17] LABS: AUTOMATED NEUTROPHIL # 0.4 TH/MM3 (1.8-7.7); BASOPHIL % 0.5 % (0.0-2.0); EOSINOPHIL # 0.3 TH/MM3 (0-0.4); EOSINOPHIL % 17.9 % (0.0-4.0); HEMATOCRIT 27.8 % (39.0-51.0); LYMPH % 36.5 % (9.0-44.0); LYMPHOCYTE # 0.5 TH/MM3 (1.0-4.8); MEAN CELL VOLUME 95.2 FL (80.0-100.0); MEAN CORPUSCULAR HEMOGLOBIN 30.9 PG (27.0-34.0); MEAN CORPUSCULAR HGB CONC 32.5 % (32.0-36.0); MEAN PLATELET VOLUME 9.2 FL (7.0-11.0); MONO % 19.8 % (0.0-8.0); MONOCYTE # 0.3 TH/MM3 (0-0.9); NEUT % 25.3 % (16.0-70.0); PLATELET COUNT 127 TH/MM3 (150-450); RED BLOOD COUNT 2.92 MIL/MM3 (4.50-5.90); RED CELL DISTRIBUTION WIDTH 14.6 % (11.6-17.2); WHITE BLOOD COUNT 1.5 TH/MM3 (4.0-11.0)
[2017-10-14] MEDS: DOCUSATE SODIUM 50 MG/SENNA 8.6 MG TAB PO SCH ×2 (09:29→21:19)
[2017-10-14] MEDS: LACTOBACILLUS ACIDOPHILUS 1 GM PACKET PO SCH ×4 (09:29→21:19)
[2017-10-14] MEDS: FLUCONAZOLE 100 MG TAB PO SCH (09:29)
[2017-10-14] MEDS: SODIUM CHLORIDE 0.9% FLUSH 10 ML FLUSH IV FLUSH SCH ×2 (09:30→21:19)
[2017-10-14] MEDS ORDERED: PEG (High)/E-LYTE SOLN 4000 ML BTL PO ONE (09:30)
[2017-10-14 09:41] LABS: BICARBONATE 27.2 MEQ/L (21.0-32.0); CALCIUM 8.7 MG/DL (8.5-10.1); CREATININE 0.97 MG/DL (0.60-1.30)
[2017-10-14 10:13] LABS: BANDS 3 % (0-6); LYMPHOCYTES 39 % (9-44); MONOCYTES 8 % (0-8); POLYS (SEG NEUTROPHILS) 25 % (16-70)
[2017-10-14 10:20] LABS: NEUTROPHIL # MANUAL DIFF 0.4 TH/MM3 (1.8-7.7)
--- NOTE | 2017-10-14 14:35 | HHI.PR ---
Subjective Remarks Follow-up pneumonia. Improving nausea. Denies odynophagia. Stable without bowel movement but no abdominal pain. No recent hospitalization. Recently started on HIV meds including azithromycin and Bactrim but was unable to tolerate. Does not know latest CD4 and viral load. Discussed with nursing staff Objective Vitals Vital Signs Date Time Temp Pulse Resp B/P (MAP) Pulse Ox O2 Delivery O2 Flow Rate FiO2 10/14/17 11:00 79 18 127/68 (87) 100 10/14/17 08:30 72 10/14/17 07:01 98.2 80 18 112/68 (83) 99 10/14/17 04:44 98.3 82 18 100/58 (72) 99 10/13/17 21:44 98.0 61 18 107/66 (80) 99 10/13/17 19:00 98 10/13/17 17:10 105/64 (78) 10/13/17 14:59 98 I/O 10/13/17 10/13/17 10/13/17 10/14/17 10/14/17 10/14/17 07:00 15:00 23:00 07:00 15:00 23:00 Intake Total 1050 ml Balance 1050 ml Intake IV Total 1050 ml Result Diagram: 10/14/17 0708 10/14/17 0718 Imaging Last Impressions Chest X-Ray 10/13/17 0000 Signed Impressions: Service Date/Time: Friday, October 13, 2017 13:37 - CONCLUSION: 1. Right upper lobe airspace consolidation consistent with pneumonia given history. Jim Calixto MD Abdomen X-Ray 10/13/17 0000 Signed Impressions: Service Date/Time: Friday, October 13, 2017 18:53 - CONCLUSION: 1. Mild constipation. No acute findings. Jj Arenas MD Objective Remarks GENERAL: This is a well-nourished, well-developed patient, in no apparent distress. SKIN: No ecchymoses, sided orbital skin dryness and flaking, no open sores. Cool and dry. CARDIOVASCULAR: Regular rate and rhythm without murmurs, gallops, or rubs. RESPIRATORY: Bilateral lower lobes diminished. No wheezes, rales, or rhonchi. GASTROINTESTINAL: Abdomen soft, mild tenderness, nondistended. No palpable masses. No guarding. MUSCULOSKELETAL: Extremities without clubbing, cyanosis, or edema. No joint tenderness, effusion, or edema noted. No calf tenderness. NEUROLOGICAL: Awake and alert oriented x3. Cranial nerves II through XII intact. Motor and sensory grossly within normal limits. Five out of 5 muscle strength in all muscle groups. Normal speech. Procedures none A/P Problem List: (1) Right upper lobe pneumonia ICD Code: J18.1 - Lobar pneumonia, unspecified organism (2) HIV disease ICD Code: B20 - Human immunodeficiency virus [HIV] disease Status: Acute (3) Burkitt lymphoma ICD Code: C83.70 - Burkitt lymphoma, unspecified site Status: Acute (4) Dara esophagitis ICD Code: B37.81 - Candidal esophagitis Status: Acute Assessment and Plan 42-year-old male who is HIV positive, unknown last CD4 count, history of Burkitt 's Lymphoma, neuropathy, and anemia presents to the ED with complaints of cough , SOB, fever, chills, nausea, and vomiting. Community acquired pneumonia Possibly aspiration pneumonia - Complaints of cough productive cough, shortness of breath, fevers, chills, on HIV patient. - Chest x-ray completed in ED reviewed, as per his consolidation noted in inferior right upper lobe consistent with pneumonia. - WBC count 2.6, lymphocytes 22.4, T-MAX 100.5 with HR 100. Lactic acid 1.3. Oxygen saturation 100% on room air. - Ceftriaxone 1000 mg IV along with azithromycin 500 mg IV while in the ED, will continue - BC x2 drawn follow results, Nasal washings negative for flu A and B, UA negative - Admit to observation unit, O2 via nasal cannula as needed - Dc Clindamycin and start Flagyl, continue monitoring clinically - Encouraged incentive spirometry, allergic to albuterol. Sepsis 2/2 above Neutropenia 2/2 above Nausea/vomiting Oral candidiasis - Ongoing nausea/vomiting/abdominal pain. Possibility related to pneumonia although sounds more like gastroparesis given his history. - Was last seen by GI in May of 2017 at that time he underwent EGD which showed exudate consistent with esophageal candidal infection. Also underwent colonoscopy which was normal. - Consult GI, appreciate recommendations - Will ct fluconazole 200 mg by mouth, oral hygiene Constipation,acute -Patient reports last bowel movement around seventh or eighth of this month. ? history as he reports he is able to eat, just in smaller portions, he also has active bowel sounds in all quadrants. -Ct add bowel regimen Burkitt's Lymphoma - Patient is s/p chemo. Last seen by oncologist in July 2017 - In remission, recommended follow-up mid December DVT prophylaxis- SCDs, early ambulation Discharge Planning needs iv abx Armani Morris MD Oct 14, 2017 14:35
[2017-10-14] MEDS ORDERED: AZITHROMYCIN INJ 250 MG in SODIUM CHLOR 0.9% 250 ML INJ 250 ML IV SCH (15:00)
[2017-10-14] MEDS ORDERED: DOLU1TAB PO (15:10)
[2017-10-14] MEDS ORDERED: RITO100 PO (15:13)
[2017-10-14] MEDS ORDERED: DARU600 PO (15:14)
[2017-10-14] MEDS ORDERED: TENO300 PO (15:15)
[2017-10-14] MEDS ORDERED: LISI-519 PO (15:16)
[2017-10-14] MEDS ORDERED: BACT800T5 PO (15:18)
[2017-10-14] MEDS ORDERED: AZIT600T PO (15:19)
--- NOTE | 2017-10-14 16:09 | PD.ID.CON ---
History of Present Illness Service ID Consult Requested By Dr Morris Reason for Consult HIV PNA Primary Care Physician JOO Guadarrama Diagnoses: History of Present Illness 42 yo male with HIV dz, pt of Dr Ya, on HAART (Tivicay/prezista/norvir/ viread) presented with 2 week history of headaches, fevers, chills, sinus congestion, runny nose, cough occasionally productive of yellow phlegm, nausea, vomiting, low appetite gradually onset symptoms . No sick contacts Patient is unsure of his CD4 count or viral load. He states that he has been unable to take his antiviral medications secondary to nausea and vomiting. He did not receive this years flu shot. 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 Chemotherapy Tetanus Vaccination: > 5 Years Past Surgical History Myoprt for lymphoma treatment Active Ordered Medications Medications where reviewed in EMR Antibiotics Include: CFTX azithro flagyl fluconazole Family History reviewed non contributory Social History Alcohol Use: Yes (RARE) Tobacco Use: Yes (2-3 CIGARETTES DAILY) Substance Use: Yes (marijuana) Physical Exam Vital Signs Vital Signs Date Time Temp Pulse Resp B/P (MAP) Pulse Ox O2 Delivery O2 Flow Rate FiO2 10/14/17 15:00 74 18 135/75 (95) 100 10/14/17 11:00 79 18 127/68 (87) 100 10/14/17 08:30 72 10/14/17 07:01 98.2 80 18 112/68 (83) 99 10/14/17 04:44 98.3 82 18 100/58 (72) 99 10/13/17 21:44 98.0 61 18 107/66 (80) 99 10/13/17 19:00 98 10/13/17 17:10 105/64 (78) Physical Exam CONSTITUTIONAL/GENERAL: This is an adequately nourished patient, in no apparent distress. TUBES/LINES/DRAINS: SKIN: No jaundice, + scaly rash on face scalp cw seborreic dermatitis Skin temperature appropriate. Not diaphoretic. HEAD: Atraumatic. Normocephalic. Myoprt in place No skin changes around EYES: Pupils equal and round and reactive. Extraocular motions intact. No scleral icterus. No injection or drainage. Fundi not examined. ENT: Hearing grossly normal. Nose without bleeding or purulent drainage. Oral mucosae without visible erythema, exudates, masses, or lesions. NECK: Trachea midline. Supple, nontender. CARDIOVASCULAR: Regular rate and rhythm without murmurs, gallops, or rubs. No JVD. Peripheral pulses symmetric. RESPIRATORY/CHEST: Symmetric, unlabored respirations. Clear to auscultation. Breath sounds equal bilaterally. No wheezes, rales, or rhonchi. GASTROINTESTINAL: Abdomen soft, mildly tender diffusely , nondistended. No hepato-splenomegaly, or palpable masses. No guarding. Bowel sounds present. GENITOURINARY: Without palpable bladder distension. MUSCULOSKELETAL: Extremities without clubbing, cyanosis, or edema. No joint tenderness or effusion noted. No calf tenderness. No mottling or clubbing. LYMPHATICS: No palpable cervical or supraclavicular adenopathy. NEUROLOGICAL: Awake and alert. Motor and sensory grossly within normal limits. Follows commands. Cognitively sharp. Moves all extremities. PSYCHIATRIC: No obvious anxiety/depression. no apparent hallucinations or other psychotic thought process. Laboratory Laboratory Tests Test 10/14/17 07:08 10/14/17 07:18 White Blood Count 1.5 Red Blood Count 2.92 Hemoglobin 9.0 Hematocrit 27.8 Mean Corpuscular Volume 95.2 Mean Corpuscular Hemoglobin 30.9 Mean Corpuscular Hemoglobin Concent 32.5 Red Cell Distribution Width 14.6 Platelet Count 127 Mean Platelet Volume 9.2 Neutrophils (%) (Auto) 25.3 Lymphocytes (%) (Auto) 36.5 Monocytes (%) (Auto) 19.8 Eosinophils (%) (Auto) 17.9 Basophils (%) (Auto) 0.5 Neutrophils # (Auto) 0.4 Lymphocytes # (Auto) 0.5 Monocytes # (Auto) 0.3 Eosinophils # (Auto) 0.3 Basophils # (Auto) 0.0 CBC Comment AUTO DIFF Differential Total Cells Counted 100 Neutrophils % (Manual) 25 Band Neutrophils % 3 Lymphocytes % 39 Monocytes % 8 Eosinophils % 25 Neutrophils # (Manual) 0.4 Differential Comment FINAL DIFF MANUAL Platelet Estimate LOW Platelet Morphology Comment NORMAL Blood Urea Nitrogen 15 Creatinine 0.97 Random Glucose 88 Calcium Level 8.7 Sodium Level 138 Potassium Level 4.5 Chloride Level 103 Carbon Dioxide Level 27.2 Anion Gap 8 Estimat Glomerular Filtration Rate 104 Date/Time Source Procedure Growth Status 10/13/17 15:10 Blood Peripheral Aerobic Blood Culture - Preliminary NO GROWTH IN 1 DAY Resulted 10/13/17 15:10 Blood Peripheral Anaerobic Blood Culture - Preliminary NO GROWTH IN 1 DAY Resulted 10/13/17 14:05 Nasal Washing Influenza Types A,B Antigen (SHAILESH) - Final NEGATIVE FOR FLU A AND B ANTIGEN.... Complete Result Diagram: 10/14/17 0708 10/14/17 0718 Imaging Last Impressions Chest X-Ray 10/13/17 0000 Signed Impressions: Service Date/Time: Friday, October 13, 2017 13:37 - CONCLUSION: 1. Right upper lobe airspace consolidation consistent with pneumonia given history. Jim Calixto MD Abdomen X-Ray 10/13/17 0000 Signed Impressions: Service Date/Time: Friday, October 13, 2017 18:53 - CONCLUSION: 1. Mild constipation. No acute findings. Jj Arenas MD Assessment and Plan Assessment and Plan HIV dz. CD4 unknown On HAART - non compliant PNA - resolving clinically on current abx Constipation, abd pain - colonoscopy planned Neutropenia, with ANC< 500 cont curretn abx - chk CD4 count - fu P studies monitor neutrophils Amalia King MD Oct 14, 2017 16:08
[2017-10-14] MEDS: metroNIDAZOLE 500 MG INJ 100 ML IV SCH ×2 (16:24→21:20)
[2017-10-14] MEDS: AZITHROMYCIN INJ 250 MG in SODIUM CHLOR 0.9% 250 ML INJ 250 ML IV SCH (18:06)
[2017-10-14] MEDS: cefTRIAXone INJ 1,000 MG in SODIUM CHLORIDE 0.9% INJ 100 ML IV SCH (19:57)
[2017-10-15] MEDS: SODIUM CHLOR 0.9% 1000 ML INJ 1,000 ML IV SCH ×3 (00:33→17:56)
[2017-10-15 00:35] VITALS: BP 107/67; PULSE 73; TEMP 96.5; O2SAT 99
[2017-10-15 04:17] VITALS: BP 100/65; PULSE 78; RESP 14; TEMP 96.1; O2SAT 98
[2017-10-15] MEDS: metroNIDAZOLE 500 MG INJ 100 ML IV SCH (04:23)
[2017-10-15 07:12] LABS: AUTOMATED NEUTROPHIL # 0.3 TH/MM3 (1.8-7.7); BASOPHIL % 0.7 % (0.0-2.0); EOSINOPHIL # 0.4 TH/MM3 (0-0.4); EOSINOPHIL % 31.2 % (0.0-4.0); HEMATOCRIT 27.2 % (39.0-51.0); LYMPHOCYTE # 0.4 TH/MM3 (1.0-4.8); MEAN CELL VOLUME 94.2 FL (80.0-100.0); MEAN CORPUSCULAR HEMOGLOBIN 31.2 PG (27.0-34.0); MEAN CORPUSCULAR HGB CONC 33.1 % (32.0-36.0); MEAN PLATELET VOLUME 8.5 FL (7.0-11.0); MONO % 16.3 % (0.0-8.0); MONOCYTE # 0.2 TH/MM3 (0-0.9); NEUT % 24.8 % (16.0-70.0); PLATELET COUNT 118 TH/MM3 (150-450); RED BLOOD COUNT 2.88 MIL/MM3 (4.50-5.90); RED CELL DISTRIBUTION WIDTH 14.4 % (11.6-17.2); WHITE BLOOD COUNT 1.4 TH/MM3 (4.0-11.0)
[2017-10-15 07:42] LABS: BICARBONATE 28.5 MEQ/L (21.0-32.0); CALCIUM 8.2 MG/DL (8.5-10.1); CREATININE 0.74 MG/DL (0.60-1.30); MAGNESIUM 2.1 MG/DL (1.5-2.5)
--- NOTE | 2017-10-15 08:01 | HHI.PR ---
Subjective Remarks F/U PNA. Complained about drinking golytely no nausea and vomiting. No CP. Reports of expressing pus from left tongue swelling dw RN Objective Vitals Vital Signs Date Time Temp Pulse Resp B/P (MAP) Pulse Ox O2 Delivery O2 Flow Rate FiO2 10/15/17 04:17 96.1 78 14 100/65 (77) 98 10/15/17 00:35 96.5 73 107/67 (80) 99 10/14/17 21:13 97.6 72 20 126/71 (89) 99 10/14/17 19:48 95 10/14/17 15:00 74 18 135/75 (95) 100 10/14/17 11:00 79 18 127/68 (87) 100 10/14/17 08:30 72 I/O 10/14/17 10/14/17 10/14/17 10/15/17 10/15/17 10/15/17 07:00 15:00 23:00 07:00 15:00 23:00 Intake Total 1050 ml 100 ml 1100 ml Balance 1050 ml 100 ml 1100 ml Intake IV Total 1050 ml 100 ml 1100 ml # Voids 6 # Bowel Movements 5 Result Diagram: 10/15/17 0655 10/15/17 0655 Imaging Last Impressions Chest X-Ray 10/13/17 0000 Signed Impressions: Service Date/Time: Friday, October 13, 2017 13:37 - CONCLUSION: 1. Right upper lobe airspace consolidation consistent with pneumonia given history. Jim Calixto MD Abdomen X-Ray 10/13/17 0000 Signed Impressions: Service Date/Time: Friday, October 13, 2017 18:53 - CONCLUSION: 1. Mild constipation. No acute findings. Jj Arenas MD Objective Remarks GENERAL: This is a well-nourished, well-developed patient, in no apparent distress. SKIN: No ecchymoses, sided orbital skin dryness and flaking, no open sores. Cool and dry. Tongue no abscess noted CARDIOVASCULAR: Regular rate and rhythm without murmurs, gallops, or rubs. RESPIRATORY: Bilateral lower lobes diminished. No wheezes, rales, or rhonchi. GASTROINTESTINAL: Abdomen soft, mild tenderness, nondistended. No palpable masses. No guarding. MUSCULOSKELETAL: Extremities without clubbing, cyanosis, or edema. No joint tenderness, effusion, or edema noted. No calf tenderness. NEUROLOGICAL: Awake and alert oriented x3. Cranial nerves II through XII intact. Motor and sensory grossly within normal limits. Five out of 5 muscle strength in all muscle groups. Normal speech. Procedures EGD and cscope A/P Problem List: (1) Right upper lobe pneumonia ICD Code: J18.1 - Lobar pneumonia, unspecified organism (2) HIV disease ICD Code: B20 - Human immunodeficiency virus [HIV] disease Status: Acute (3) Burkitt lymphoma ICD Code: C83.70 - Burkitt lymphoma, unspecified site Status: Acute (4) Dara esophagitis ICD Code: B37.81 - Candidal esophagitis Status: Acute Assessment and Plan 42-year-old male who is HIV positive, unknown last CD4 count, history of Burkitt 's Lymphoma, neuropathy, and anemia presents to the ED with complaints of cough , SOB, fever, chills, nausea, and vomiting. Community acquired pneumonia Possibly aspiration pneumonia - Complaints of cough productive cough, shortness of breath, fevers, chills, on HIV patient. - Chest x-ray completed in ED reviewed, as per his consolidation noted in inferior right upper lobe consistent with pneumonia. - WBC count 2.6, lymphocytes 22.4, T-MAX 100.5 with HR 100. Lactic acid 1.3. Oxygen saturation 100% on room air. - Ceftriaxone 1000 mg IV along with azithromycin 500 mg IV while in the ED, will continue - BC x2 drawn follow results, Nasal washings negative for flu A and B, UA negative - Admit to observation unit, O2 via nasal cannula as needed - Dc Flagyl per ID - Encouraged incentive spirometry, allergic to albuterol. Sepsis 2/2 above Pancytopenia likely 2/2 above. Heme consult Nausea/vomiting. Improved Oral candidiasis - Was last seen by GI in May of 2017 at that time he underwent EGD which showed exudate consistent with esophageal candidal infection. Also underwent colonoscopy which was normal. - Consult GI, appreciate recommendations. Rpt EGD with mild esophagitis , Start Zantac - Will ct fluconazole 200 mg by mouth, oral hygiene Constipation,acute -Rpt cscope with incomplete prep -Ct bowel regimen, Miralax added Burkitt's Lymphoma - Patient is s/p chemo. Last seen by oncologist in July 2017 - In remission, recommended follow-up mid December DVT prophylaxis- SCDs, early ambulation Discharge Planning needs iv abx Armani Morris MD Oct 15, 2017 08:00
[2017-10-15] MEDS: LACTOBACILLUS ACIDOPHILUS 1 GM PACKET PO SCH ×4 (09:00→21:00)
[2017-10-15 09:36] LABS: BANDS 1 % (0-6); LYMPHOCYTES 32 % (9-44); MONOCYTES 20 % (0-8); POLYS (SEG NEUTROPHILS) 21 % (16-70)
[2017-10-15 09:44] LABS: NEUTROPHIL # MANUAL DIFF 0.3 TH/MM3 (1.8-7.7)
[2017-10-15 09:45] LABS: OVALOCYTES 1+ (NORMAL)
--- NOTE | 2017-10-15 10:20 | PD.PROCEDR ---
GI Procedure PROCEDURE PERFORMED Upper endoscopy with biopsy INDICATION FOR PROCEDURE Chest pain Constipation PROCEDURE: The procedure, risks and benefits were discussed with Mr. Beebe and informed consent was obtained. Anesthesia sedated him with Diprivan. He was placed in the left lateral decubitus position. EGD: The Pentax videoscope was introduced through the oropharynx and advanced to the second portion of the duodenum under direct visualization. Retroflexion was performed in the stomach. Biopsy from the distal esophagus FINDINGS: Mild esophagitis very minimal otherwise normal exam Colonoscopy: The Pentax videoscope was introduced through the rectum and advanced to cecum which was identified by the ileocecal valve and appendiceal orifice. Retroflexion was performed in the rectum. Colonic prep was suboptimal was some stool throughout the colon may interfere with the vision of small lesions but there was no masses or large polyp that I could identify FINDINGS: Some stool throughout the colon otherwise no abnormality seen ESTIMATED BLOOD LOSS: None SPECIMENS REMOVED: Distal esophagus COMPLICATIONS: None IMPRESSION: Mild minimal esophagitis Some stool throughout the colon PLAN: Stool softener on a daily basis, use MiraLAX No reason for the patient's chest pain on this exam very minimal esophagitis, may use H2 susanna such as Zantac 150 twice a day daily May feed patient Further workup for chest pain may be needed by primary team Ann Marie Jernigan MD Oct 15, 2017 10:20
--- NOTE | 2017-10-15 10:23 | HHI.GIFU ---
Subjective Remarks Patient laying in bed comfortably, he complained of some chest discomfort otherwise no abnormality, he had large bowel movements with the prep Objective Vitals I&O Vital Signs Date Time Temp Pulse Resp B/P (MAP) Pulse Ox O2 Delivery O2 Flow Rate FiO2 10/15/17 04:17 96.1 78 14 100/65 (77) 98 10/15/17 00:35 96.5 73 107/67 (80) 99 10/14/17 21:13 97.6 72 20 126/71 (89) 99 10/14/17 19:48 95 10/14/17 15:00 74 18 135/75 (95) 100 10/14/17 11:00 79 18 127/68 (87) 100 I/O 10/14/17 10/14/17 10/14/17 10/15/17 10/15/17 10/15/17 07:00 15:00 23:00 07:00 15:00 23:00 Intake Total 1050 ml 100 ml 1100 ml Balance 1050 ml 100 ml 1100 ml Intake IV Total 1050 ml 100 ml 1100 ml # Voids 6 # Bowel Movements 5 Laboratory Laboratory Tests Test 10/15/17 06:55 White Blood Count 1.4 Red Blood Count 2.88 Hemoglobin 9.0 Hematocrit 27.2 Mean Corpuscular Volume 94.2 Mean Corpuscular Hemoglobin 31.2 Mean Corpuscular Hemoglobin Concent 33.1 Red Cell Distribution Width 14.4 Platelet Count 118 Mean Platelet Volume 8.5 Neutrophils (%) (Auto) 24.8 Lymphocytes (%) (Auto) 27.0 Monocytes (%) (Auto) 16.3 Eosinophils (%) (Auto) 31.2 Basophils (%) (Auto) 0.7 Neutrophils # (Auto) 0.3 Lymphocytes # (Auto) 0.4 Monocytes # (Auto) 0.2 Eosinophils # (Auto) 0.4 Basophils # (Auto) 0.0 CBC Comment AUTO DIFF Differential Total Cells Counted 100 Neutrophils % (Manual) 21 Band Neutrophils % 1 Lymphocytes % 32 Monocytes % 20 Eosinophils % 26 Neutrophils # (Manual) 0.3 Differential Comment FINAL DIFF MANUAL Platelet Estimate LOW Platelet Morphology Comment NORMAL Ovalocytes 1+ Blood Urea Nitrogen 11 Creatinine 0.74 Random Glucose 86 Calcium Level 8.2 Magnesium Level 2.1 Sodium Level 141 Potassium Level 4.3 Chloride Level 107 Carbon Dioxide Level 28.5 Anion Gap 6 Estimat Glomerular Filtration Rate 142 Date/Time Source Procedure Growth Status 10/13/17 15:10 Blood Peripheral Aerobic Blood Culture - Preliminary NO GROWTH IN 1 DAY Resulted 10/13/17 15:10 Blood Peripheral Anaerobic Blood Culture - Preliminary NO GROWTH IN 1 DAY Resulted 10/13/17 14:05 Nasal Washing Influenza Types A,B Antigen (SHAILESH) - Final NEGATIVE FOR FLU A AND B ANTIGEN.... Complete 10/15/17 06:20 Urine Random Urine Legionella Antigen - Final PRESUMPTIVE NEGATIVE FOR LEGIONELLA P... Complete 10/15/17 06:20 Urine Random Urine Streptococcus pneumoniae Antigen (M - Final PRESUMPTIVE NEGATIVE FOR STREPTOCOCCU... Complete Physical Exam HEENT: Pupils round and reactive to light; normocephalic; atraumatic; no jaundice. Throat is clear. NECK: Neck is supple, no JVD, no lymphadenopathy. CHEST: Chest is clear to auscultation and percussion. CARDIAC: Regular rate and rhythm with no murmur gallop or rubs. ABDOMEN: Soft, nondistended, nontender; no hepatosplenomegaly; bowel sounds are present in all four quadrants. EXTREMITIES: No clubbing, cyanosis, or edema. SKIN: Normal; no rash; no jaundice. CUTTING MACHINE TENDER: No focal deficits; alert and oriented times three. Assessment and Plan Plan ASSESSMENT - n/v - suspect at least in part d/t constipation, no bm in 2 weeks. KUB 10/13 showed mild constipation got colace in ER and says he then started passing gas and feels better today , wants to eat. Had EGD 05/2017 consistent with maryana esophagitis, gastritis, path maryana. - recent change bowel habits - constipation 2 weeks ago. had colonoscopy 2016 normal rectum and cecum. 10/15/2017, patient is doing okay this morning patient has some mild constipation on KUB he tolerated the prep he said he had large bowel movements, he still have some chest discomfort less nausea, colonoscopy and EGD was done IMPRESSION: Mild minimal esophagitis Some stool throughout the colon PLAN: Stool softener on a daily basis, use MiraLAX No reason for the patient's chest pain on this exam very minimal esophagitis, may use H2 susanna such as Zantac 150 twice a day daily May feed patient Further workup for chest pain may be needed by primary team Okay to [facility] from GI perspective Ann Marie Jernigan MD 25, 2018 10:23
[2017-10-15] MEDS ORDERED: PROPOFOL 200 MG/20 ML AMP IV ONE (12:00)
[2017-10-15 12:15] VITALS: BP 112/66; PULSE 75; RESP 19; TEMP 98.1; O2SAT 100
--- NOTE | 2017-10-15 12:23 | HHI.IDPN ---
Subjective Subjective Remarks states he feels better ANC 300 afebrile scope w/o majr pathology blood clx + 1/4 with GPC in pairs, clusters will add vancomycin AFB blood clx CMV PCR CD4 count Antibiotics azithro CFTX flagyl Allergies: Coded Allergies: albuterol (Verified Allergy, Intermediate, Hives, 10/13/17) shortness of breath Objective . Vital Signs Date Time Temp Pulse Resp B/P (MAP) Pulse Ox O2 Delivery O2 Flow Rate FiO2 10/15/17 10:35 97.4 73 18 115/73 (87) 99 10/15/17 04:17 96.1 78 14 100/65 (77) 98 10/15/17 00:35 96.5 73 107/67 (80) 99 10/14/17 21:13 97.6 72 20 126/71 (89) 99 10/14/17 19:48 95 10/14/17 15:00 74 18 135/75 (95) 100 10/15/17 10/15/17 10/16/17 15:00 23:00 07:00 Intake Total 150 ml Balance 150 ml Other 150 ml # Voids 1 . Laboratory Tests Test 10/13/17 12:45 10/14/17 07:08 10/15/17 06:55 White Blood Count 2.6 TH/MM3 1.5 TH/MM3 1.4 TH/MM3 Red Blood Count 3.21 MIL/MM3 2.92 MIL/MM3 2.88 MIL/MM3 Hemoglobin 10.3 GM/DL 9.0 GM/DL 9.0 GM/DL Hematocrit 30.3 % 27.8 % 27.2 % Mean Corpuscular Volume 94.5 FL 95.2 FL 94.2 FL Mean Corpuscular Hemoglobin 32.1 PG 30.9 PG 31.2 PG Mean Corpuscular Hemoglobin Concent 34.0 % 32.5 % 33.1 % Red Cell Distribution Width 14.2 % 14.6 % 14.4 % Platelet Count 143 TH/MM3 127 TH/MM3 118 TH/MM3 Mean Platelet Volume 9.0 FL 9.2 FL 8.5 FL Neutrophils (%) (Auto) 52.7 % 25.3 % 24.8 % Lymphocytes (%) (Auto) 22.4 % 36.5 % 27.0 % Monocytes (%) (Auto) 18.1 % 19.8 % 16.3 % Eosinophils (%) (Auto) 6.4 % 17.9 % 31.2 % Basophils (%) (Auto) 0.4 % 0.5 % 0.7 % Neutrophils # (Auto) 1.4 TH/MM3 0.4 TH/MM3 0.3 TH/MM3 Lymphocytes # (Auto) 0.6 TH/MM3 0.5 TH/MM3 0.4 TH/MM3 Monocytes # (Auto) 0.5 TH/MM3 0.3 TH/MM3 0.2 TH/MM3 Eosinophils # (Auto) 0.2 TH/MM3 0.3 TH/MM3 0.4 TH/MM3 Basophils # (Auto) 0.0 TH/MM3 0.0 TH/MM3 0.0 TH/MM3 CBC Comment AUTO DIFF AUTO DIFF AUTO DIFF Differential Comment AUTO DIFF CONFIRMED FINAL DIFF MANUAL FINAL DIFF MANUAL Platelet Estimate LOW LOW LOW Platelet Morphology Comment NORMAL NORMAL NORMAL Ovalocytes 1+ 1+ Differential Total Cells Counted 100 100 Neutrophils % (Manual) 25 % 21 % Band Neutrophils % 3 % 1 % Lymphocytes % 39 % 32 % Monocytes % 8 % 20 % Eosinophils % 25 % 26 % Neutrophils # (Manual) 0.4 TH/MM3 0.3 TH/MM3 Laboratory Tests Test 10/13/17 12:45 10/14/17 07:18 10/15/17 06:55 Blood Urea Nitrogen 16 MG/DL 15 MG/DL 11 MG/DL Creatinine 1.05 MG/DL 0.97 MG/DL 0.74 MG/DL Random Glucose 98 MG/DL 88 MG/DL 86 MG/DL Total Protein 8.2 GM/DL Albumin 3.8 GM/DL Calcium Level 9.3 MG/DL 8.7 MG/DL 8.2 MG/DL Alkaline Phosphatase 68 U/L Aspartate Amino Transf (AST/SGOT) 18 U/L Alanine Aminotransferase (ALT/SGPT) 16 U/L Total Bilirubin 0.5 MG/DL Sodium Level 135 MEQ/L 138 MEQ/L 141 MEQ/L Potassium Level 4.1 MEQ/L 4.5 MEQ/L 4.3 MEQ/L Chloride Level 100 MEQ/L 103 MEQ/L 107 MEQ/L Carbon Dioxide Level 28.3 MEQ/L 27.2 MEQ/L 28.5 MEQ/L Anion Gap 7 MEQ/L 8 MEQ/L 6 MEQ/L Estimat Glomerular Filtration Rate 95 ML/MIN 104 ML/MIN 142 ML/MIN Lactic Acid Level 1.3 mmol/L Lipase 112 U/L Magnesium Level 2.1 MG/DL Microbiology Date/Time Source Procedure Growth Status 10/15/17 11:00 Blood Peripheral Mycobacterial Culture Pending Received 10/13/17 15:10 Blood Peripheral Aerobic Blood Culture - Preliminary Gram Positive Cocci Resulted 10/13/17 15:10 Blood Peripheral Anaerobic Blood Culture - Preliminary NO GROWTH IN 2 DAYS Resulted 10/13/17 15:00 Blood Peripheral Aerobic Blood Culture - Preliminary NO GROWTH IN 2 DAYS Resulted 10/13/17 15:00 Blood Peripheral Anaerobic Blood Culture - Preliminary NO GROWTH IN 2 DAYS Resulted 10/13/17 14:05 Nasal Washing Influenza Types A,B Antigen (SHAILESH) - Final NEGATIVE FOR FLU A AND B ANTIGEN.... Complete 10/15/17 06:20 Urine Random Urine Legionella Antigen - Final PRESUMPTIVE NEGATIVE FOR LEGIONELLA P... Complete 10/15/17 06:20 Urine Random Urine Streptococcus pneumoniae Antigen (M - Final PRESUMPTIVE NEGATIVE FOR STREPTOCOCCU... Complete Imaging Last Impressions Chest X-Ray 10/13/17 0000 Signed Impressions: Service Date/Time: Friday, October 13, 2017 13:37 - CONCLUSION: 1. Right upper lobe airspace consolidation consistent with pneumonia given history. Jim Calixto MD Abdomen X-Ray 10/13/17 0000 Signed Impressions: Service Date/Time: Friday, October 13, 2017 18:53 - CONCLUSION: 1. Mild constipation. No acute findings. Jj Arenas MD Physical Exam CONSTITUTIONAL/GENERAL: This is an adequately nourished patient, in no apparent distress. TUBES/LINES/DRAINS: SKIN: No jaundice, + scaly rash on face scalp cw seborreic dermatitis Skin temperature appropriate. Not diaphoretic. CARDIOVASCULAR: Regular rate and rhythm without murmurs, gallops, or rubs. No JVD. Peripheral pulses symmetric. RESPIRATORY/CHEST: Symmetric, unlabored respirations. Clear to auscultation. Breath sounds equal bilaterally. No wheezes, rales, or rhonchi. GASTROINTESTINAL: Abdomen soft, mildly tender diffusely , nondistended. No hepato-splenomegaly, or palpable masses. No guarding. Bowel sounds present. GENITOURINARY: Without palpable bladder distension. MUSCULOSKELETAL: Extremities without clubbing, cyanosis, or edema. No joint tenderness or effusion noted. No calf tenderness. No mottling or clubbing. NEUROLOGICAL: Awake and alert. Motor and sensory grossly within normal limits. Follows commands. Cognitively sharp. Moves all extremities. Assessment & Plan Remarks HIV dz. CD4 unknown On HAART - non compliant PNA - resolving clinically on current abx Constipation, abd pain - colonoscopy planned Neutropenia, with ANC< 500 Low grade bacteremia sugg of staph: significance is unclear at this point yet cont curretn abx - chk CD4 count - fu P studies monitor neutrophils dc Amalia Burgos MD Oct 15, 2017 12:23
[2017-10-15] MEDS ORDERED: Vancomycin Consult Pharmacy 1 EA OTHER SCH (12:30)
[2017-10-15] MEDS: SODIUM CHLORIDE 0.9% FLUSH 10 ML FLUSH IV FLUSH SCH ×2 (13:32→21:00)
[2017-10-15] MEDS: DOCUSATE SODIUM 50 MG/SENNA 8.6 MG TAB PO SCH ×2 (13:46→21:00)
[2017-10-15] MEDS: FLUCONAZOLE 100 MG TAB PO SCH (13:46)
[2017-10-15] MEDS: VANCOMYCIN INJ 1,500 MG in SODIUM CHLORID 0.9% 500 ML INJ 500 ML IV SCH (15:26)
[2017-10-15 16:14] VITALS: BP 127/76; PULSE 76; RESP 18; TEMP 97.7; O2SAT 100
[2017-10-15] MEDS: POLYETHYLENE GLYCOL 17 GM PKG PO SCH (16:58)
[2017-10-15] MEDS ORDERED: DIATRIZOATE MEGLUM/DIATRIZOATE SOD 9 ML CUP PO ONE (19:30)
--- NOTE | 2017-10-15 19:57 | RADRPT ---
EXAM DATE/TIME: 10/15/2017 19:25 [facility] COMPARISON: No previous studies available for comparison. INDICATIONS : Evaluate for perforation post endoscopy, and abominal pain in the upper right quadrant. MEDICAL HISTORY : None. SURGICAL HISTORY : None. ENCOUNTER: Initial ACUITY: 1 day PAIN SCORE: 8/10 LOCATION: abdomen FINDINGS: Distended loops of bowel seen in the mid and left upper abdomen, some appears to represent small ortiz l and of concern for developing obstruction. No free air seen. CONCLUSION: Suspected developing small bowel obstruction. No free air. Jose Miranda MD on October 15, 2017 at 19:53 Board Certified Radiologist. This report was verified electronically.
[2017-10-15] MEDS ORDERED: MORPHINE SULFATE 4 MG/ML INJ IV PUSH PRN (20:15)
[2017-10-15 20:42] LABS: AUTOMATED NEUTROPHIL # 0.5 TH/MM3 (1.8-7.7); BASOPHIL % 0.4 % (0.0-2.0); EOSINOPHIL # 0.4 TH/MM3 (0-0.4); EOSINOPHIL % 26.4 % (0.0-4.0); HEMATOCRIT 24.2 % (39.0-51.0); LYMPH % 26.2 % (9.0-44.0); LYMPHOCYTE # 0.4 TH/MM3 (1.0-4.8); MEAN CORPUSCULAR HEMOGLOBIN 31.5 PG (27.0-34.0); MEAN CORPUSCULAR HGB CONC 33.2 % (32.0-36.0); MEAN PLATELET VOLUME 8.7 FL (7.0-11.0); MONO % 16.6 % (0.0-8.0); MONOCYTE # 0.2 TH/MM3 (0-0.9); NEUT % 30.4 % (16.0-70.0); PLATELET COUNT 108 TH/MM3 (150-450); RED BLOOD COUNT 2.55 MIL/MM3 (4.50-5.90); RED CELL DISTRIBUTION WIDTH 14.4 % (11.6-17.2); WHITE BLOOD COUNT 1.5 TH/MM3 (4.0-11.0)
[2017-10-15 20:46] VITALS: BP 117/64; PULSE 70; RESP 16; TEMP 98.3; O2SAT 100
[2017-10-15 20:54] LABS: ALBUMIN 2.6 GM/DL (3.4-5.0); BICARBONATE 26.3 MEQ/L (21.0-32.0); CALCIUM 7.2 MG/DL (8.5-10.1); CREATININE 0.6 MG/DL (0.60-1.30)
[2017-10-15 20:59] LABS: CALCIUM-PROTEIN CORRECTED 7.9 MG/DL (8.5-10.1); TOTAL BILIRUBIN ADULT 0.2 MG/DL (0.2-1.0); TOTAL PROTEIN 5.7 GM/DL (6.4-8.2)
[2017-10-15] MEDS: cefTRIAXone INJ 1,000 MG in SODIUM CHLORIDE 0.9% INJ 100 ML IV SCH (21:16)
[2017-10-15 21:26] LABS: BANDS 1 % (0-6); LYMPHOCYTES 36 % (9-44); MONOCYTES 11 % (0-8); POLYS (SEG NEUTROPHILS) 33 % (16-70)
[2017-10-15 21:27] LABS: OVALOCYTES 2+ (NORMAL)
[2017-10-15 21:30] LABS: NEUTROPHIL # MANUAL DIFF 0.5 TH/MM3 (1.8-7.7)
[2017-10-15] MEDS: AZITHROMYCIN INJ 250 MG in SODIUM CHLOR 0.9% 250 ML INJ 250 ML IV SCH (22:51)
[2017-10-16] VITALS (9 sets, daily range): BP systolic 114–130; BP diastolic 66–81; PULSE 64–79; RESP 15–18; TEMP 95.5–99.8; O2SAT 100
[2017-10-16] MEDS ORDERED: IOHEXOL 350 MG/ML 10 ML VIAL (for RAD DIAG) IVCONTRAST ONE (00:55)
[2017-10-16] MEDS: FAMOTIDINE 20 MG TAB PO SCH ×4 (01:03→20:26)
[2017-10-16] MEDS: SODIUM CHLOR 0.9% 1000 ML INJ 1,000 ML IV SCH ×4 (01:07→23:56)
--- NOTE | 2017-10-16 01:16 | RADRPT ---
EXAM DATE/TIME: 10/16/2017 00:50 [facility] COMPARISON: No previous studies available for comparison. INDICATIONS : Shortness of breath. IV CONTRAST: 100 cc Omnipaque 350 (iohexol) IV ; Cumulative dose for multiple exams. RADIATION DOSE: 4.38 CTDIvol (mGy) ; Combined studies MEDICAL HISTORY : Lymphoma. HIV. SURGICAL HISTORY : None. ENCOUNTER: Initial ACUITY: 1 day PAIN SCALE: 0/10 LOCATION: chest TECHNIQUE: Volumetric scanning of the chest was performed. Using automated exposure control and adjustment of t he mA and/or kV according to patient size, radiation dose was kept as low as reasonably achievable to obtain optimal diagnostic quality images. DICOM format image data is available electronically for review and comparison. Follow-up recommendations for detected pulmonary nodules are based at a minimum on nodule size and pa tient risk factors according to Fleischner Society Guidelines. FINDINGS: LUNGS: There is an area of consolidation at the inferior aspect of the right upper lobe abutting the minor f issure. This also a mild area of increased predominantly linear density at the medial right lower lob e. PLEURA: There is no pleural thickening or pleural effusion. MEDIASTINUM: The heart and great vessels demonstrate no acute abnormality. There is no mediastinal lymphadenopath y. There appears to be a mildly prominent lymph node in the right hilum measuring up to 1.3 cm. AXILLAE: Within normal limits. No lymphadenopathy. SKELETAL: Within normal limits for patient age. MISCELLANEOUS: The visualized upper abdominal organs demonstrate no acute abnormality. CONCLUSION: Focal consolidation or atelectasis at the inferior right upper lobe and at the medial right lower lob e. Areas of pneumonia should be considered. There is a mildly prominent right hilar lymph node. Joes Dean MD on October 16, 2017 at 1:09 Board Certified Radiologist. This report was verified electronically.
--- NOTE | 2017-10-16 01:18 | RADRPT ---
EXAM DATE/TIME: 10/16/2017 00:48 [facility] COMPARISON: No previous studies available for comparison. INDICATIONS : Abdominal pain with constipation. IV CONTRAST: 100 cc Omnipaque 350 (iohexol) IV ; Cumulative dose for multiple exams. ORAL CONTRAST: Prescribed oral contrast ingested. RADIATION DOSE: 4.38 CTDIvol (mGy) ; Combined studies - Thorax/Abdomen/Pelvis MEDICAL HISTORY : Lymphoma. HIV. SURGICAL HISTORY : None. ENCOUNTER: Initial ACUITY: 2 weeks PAIN SCALE: 6/10 LOCATION: Abdomen. TECHNIQUE: Volumetric scanning of the abdomen and pelvis was performed. Using automated exposure control and ad justment of the mA and/or kV according to patient size, radiation dose was kept as low as reasonably achievable to obtain optimal diagnostic quality images. DICOM format image data is available electro nically for review and comparison. FINDINGS: LOWER LUNGS: Please see the CT of the chest report.. LIVER: Homogeneous density without lesion. There is no dilation of the biliary tree. No calcified gallston es. SPLEEN: Normal size without lesion. PANCREAS: Within normal limits. KIDNEYS: Normal in size and shape. There is no solid mass, stone or hydronephrosis. There is a 0.6 cm cyst at the lateral posterior mid left kidney. ADRENAL GLANDS: Within normal limits. VASCULAR: There is no aortic aneurysm. BOWEL/MESENTERY: The stomach, small bowel, and colon demonstrate no acute abnormality. There is no free intraperitone al air or fluid. ABDOMINAL WALL: Within normal limits. RETROPERITONEUM: There is no lymphadenopathy. BLADDER: No wall thickening or mass. REPRODUCTIVE: Within normal limits. INGUINAL: There is no lymphadenopathy or hernia. MUSCULOSKELETAL: There is degenerative change of the lower lumbar spine. CONCLUSION: No acute abnormality is seen in the abdomen and pelvis. Jose Dean MD on October 16, 2017 at 1:14 Board Certified Radiologist. This report was verified electronically.
[2017-10-16] MEDS: VANCOMYCIN INJ 1,500 MG in SODIUM CHLORID 0.9% 500 ML INJ 500 ML IV SCH ×2 (03:35→18:44)
[2017-10-16] MEDS ORDERED: DO NOT ADM ANY ANTICOAGULANT DRUGS PRN (05:15)
--- NOTE | 2017-10-16 08:54 | MB ---
cc: ALYX CEDILLO MD, WENDY A. ABANDO, JOSE R. MD DATE OF CONSULTATION 10/15/2017 TIME OF CONSULTATION 6:30 p.m. DATE OF 1975 REASON FOR CONSULTATION 1. Patient with febrile neutropenia. 2. Pancytopenia. 3. Personal history of Burkitt lymphoma diagnosed in 2013. CHIEF COMPLAINT 1. Mr. Beebe reports having a three-week history of feeling fatigued. 2. He reports blacking out on the day of presentation to the emergency department. 3. He reports fevers and night sweats. HISTORY OF PRESENT ILLNESS Mr. Beebe is a 42-year-old male with a history of HIV/AIDS which was diagnosed in 2006. He reports susan this disease with an infected tattoo needle. The patient was diagnosed in 2013 with Burkitt lymphoma. At that time he had uncontrolled HIV. He was treated at [facility] with high-dose chemotherapy including intrathecal chemotherapy injections. His last systemic chemotherapy dose was in October 2014 and he reports having been in remission ever since. The patient has been loosely followed by hematology since he moved from [facility] to the [facility]. He had last seen my associate, Dr. Owen, several months ago. The patient reports his initial presentation of Burkitt lymphoma was that of a syncopal episode and then rapidly developing abdominal pain as well as partial paralysis of his left leg. This was all due to intra-abdominal and paraspinal lymphoma. Mr. Beebe reports the above-noted symptoms in the chief complaint. In addition to that he reports having had some nausea and not being able to swallow his HIV medications. He presented to the emergency department with the above-noted complaints and was noted to be febrile. He was noted to be neutropenic with an ANC of 300. He was also frankly pancytopenic with anemia and mild thrombocytopenia as well. Additional complaints which are noteworthy include loss of appetite, fevers, chills and night sweats. PAST MEDICAL HISTORY 1. HIV/AIDS. 2. Burkitt lymphoma. 3. Intracranial hemorrhage. PAST SURGICAL HISTORY 1. Bone marrow biopsy. 2. Intra-abdominal mass biopsy. 3. Ommaya port placement. 4. [place] hole surgery for evacuation of intracranial bleed. FAMILY HISTORY Mother is living. She has a history of melanoma. Father not known. ALLERGIES ALBUTEROL, WHICH CAUSES HIVES. SOCIAL HISTORY The patient is disabled. He lives at home with his 15-year-old daughter. He is a single dad. 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 He reports smoking marijuana occasionally to help stimulate his appetite. Denies tobacco abuse. Denies alcohol abuse. MEDICATIONS Current inpatient medications:. 1. Azithromycin 250 mg IV q.24h. 2. Ceftriaxone 1000 mg IV q.24h. 3. Normal saline 100 cc per hour. 4. Vancomycin 1500 mg IV q.12h. 5. Senna/Colace, one tablet p.o. b.i.d. 6. Famotidine 20 mg p.o. q.12h. 7. Fluconazole 200 mg p.o. daily. 8. Zofran 4 mg IV q.8h. as needed for nausea and vomiting. 10.MiraLax 17 grams p.o. daily. 11.Senokot 17.2 mg p.o. q.12h. REVIEW OF SYSTEMS A 13-point review of systems was obtained and the following are the pertinent positives: CONSTITUTIONAL: The patient reports chills. The patient reports sweats. He reports decreased appetite, reports weight loss. HEENT: He reports headaches but denies blurry vision. Reports difficulty swallowing pills. He denies nosebleeds. RESPIRATORY: Denies difficulty breathing with exertion. Reports cough. Denies hemoptysis. Denies pleuritic chest pain. CARDIOVASCULAR: Denies angina-like chest pain, PND, orthopnea. GASTROINTESTINAL: Reports nausea and vomiting. Denies hematochezia or melena. Denies abdominal distention. GENITOURINARY: Denies dysuria, hematuria or incontinence. SKIN: No complaints of itching, rash or bleeding. SKIDDER: Denies any focal sensory or motor deficits which are new. 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 PHYSICAL EXAMINATION VITAL SIGNS: Temperature 97.7 degrees Fahrenheit, heart rate 76 beats per minute, respiratory rate 18, blood pressure 127/76. O2 sats are 100% on room air. GENERAL APPEARANCE: Mr. Beebe is a middle-aged -[place] male. He is of medium height and moderate build. He appears to be in no acute distress. HEENT: Head is atraumatic, normocephalic. Ommaya port noted just to right of the midline anteriorly. Conjunctivae are mildly pale. Sclerae are anicteric. EOMI. PERRLA. Oral exam with no pharyngeal erythema. NECK: No palpable cervical or supraclavicular lymphadenopathy. LUNGS: Good air movement bilaterally. No added breath sounds. HEART: Regular rate and rhythm, S1, S2. No obvious murmurs, rubs or gallops. ABDOMEN: Protuberant belly, soft, nontender. The tip of the spleen is palpable on inspiration. No hepatomegaly. Positive bowel sounds. No inguinal lymphadenopathy. EXTREMITIES: No pretibial edema or calf tenderness. SKIN: Without any focal findings. NEUROLOGIC: Adequate muscle mass and tone. He has decreased motor strength of the left lower extremity. LABORATORY FINDINGS Chemistries dated 10/15/2017: Sodium 141, potassium 4.3, chloride 107, bicarb 28.5, BUN 11, creatinine 0.74, random glucose 86, calcium 8.2, total bilirubin 0.5, AST 18, ALT 16, alkaline phosphatase 68, albumin 3.8, lipase 112. Coags: PT 10.6, INR 1, PTT 32. Serology: CMV DNA is pending. ASSESSMENT Mr. Beebe is a 42-year-old male with a history of HIV/AIDS, HIV-associated Burkitt lymphoma diagnosed in 2013, and reported history of hepatitis C as well. He presented to the hospital with a three-week history of malaise, fatigue, weakness, and fevers and chills as well. He passed out on the day of ER presentation. The syncopal episode was not observed by anyone. Since hospitalization he has been noted to be pancytopenic with an ANC of 300 and hemoglobin down to 9 gm/dl. He is also noted to have low grade temperatures. Clinical exam at today's visit is nonfocal. The oncology service has been asked to see him for further work-up and management given his history of Burkitt lymphoma as well as pancytopenia. RECOMMENDATIONS 1. History of Burkitt lymphoma: I would like to re-stage him, especially given his constitutional symptoms of fatigue, weakness, loss of appetite and night sweats, with CT scan of the chest, abdomen, pelvis. 2. Obtain hepatitis C serologies. 3. Repeat blood work in the morning. MD [facility] Quan/ROLANDO /7:10 PM /8:24 AM
[2017-10-16] MEDS: POLYETHYLENE GLYCOL 17 GM PKG PO SCH (09:00)
[2017-10-16] MEDS: DOCUSATE SODIUM 50 MG/SENNA 8.6 MG TAB PO SCH ×2 (09:00→20:25)
[2017-10-16 09:21] LABS: AUTOMATED NEUTROPHIL # 0.4 TH/MM3 (1.8-7.7); BASOPHIL % 0.3 % (0.0-2.0); EOSINOPHIL # 0.4 TH/MM3 (0-0.4); EOSINOPHIL % 29.4 % (0.0-4.0); HEMATOCRIT 27.7 % (39.0-51.0); LYMPH % 23.9 % (9.0-44.0); LYMPHOCYTE # 0.3 TH/MM3 (1.0-4.8); MEAN CORPUSCULAR HEMOGLOBIN 31.1 PG (27.0-34.0); MEAN CORPUSCULAR HGB CONC 32.7 % (32.0-36.0); MEAN PLATELET VOLUME 8.8 FL (7.0-11.0); MONO % 19.1 % (0.0-8.0); MONOCYTE # 0.3 TH/MM3 (0-0.9); NEUT % 27.3 % (16.0-70.0); PLATELET COUNT 122 TH/MM3 (150-450); RED BLOOD COUNT 2.91 MIL/MM3 (4.50-5.90); RED CELL DISTRIBUTION WIDTH 14.2 % (11.6-17.2); WHITE BLOOD COUNT 1.4 TH/MM3 (4.0-11.0)
[2017-10-16 09:46] LABS: BICARBONATE 28.4 MEQ/L (21.0-32.0); CALCIUM 8.8 MG/DL (8.5-10.1); CREATININE 0.73 MG/DL (0.60-1.30)
[2017-10-16] MEDS: SODIUM CHLORIDE 0.9% FLUSH 10 ML FLUSH IV FLUSH SCH ×2 (11:11→20:25)
[2017-10-16] MEDS: FLUCONAZOLE 100 MG TAB PO SCH (11:12)
[2017-10-16] MEDS: LACTOBACILLUS ACIDOPHILUS 1 GM PACKET PO SCH ×4 (11:20→20:25)
--- NOTE | 2017-10-16 11:24 | HHI.GIFU ---
Subjective Remarks Right upper quadrant pain continues waxes and wanes sharp in nature after abdominal rumbling Denies any nausea or vomiting Answers questions appropriately Resting in bed (Becca Shields) Objective Vitals I&O Vital Signs Date Time Temp Pulse Resp B/P (MAP) Pulse Ox O2 Delivery O2 Flow Rate FiO2 10/16/17 10:53 96.9 64 18 114/77 (89) 100 10/16/17 07:41 95.5 76 18 118/76 (90) 100 10/16/17 03:26 98.0 75 15 118/71 (87) 100 10/16/17 00:12 97.6 75 16 119/81 (94) 100 10/15/17 20:46 98.3 70 16 117/64 (81) 100 10/15/17 16:14 97.7 76 18 127/76 (93) 100 10/15/17 12:15 98.1 75 19 112/66 (81) 100 I/O 10/15/17 10/15/17 10/15/17 10/16/17 10/16/17 10/16/17 07:00 15:00 23:00 07:00 15:00 23:00 Intake Total 1100 ml 150 ml 100 ml 1515 ml Balance 1100 ml 150 ml 100 ml 1515 ml Intake IV Total 1100 ml 100 ml 1515 ml Other 150 ml # Voids 6 1 # Bowel Movements 5 Laboratory Laboratory Tests Test 10/15/17 19:42 10/15/17 21:52 10/16/17 08:39 10/16/17 08:59 White Blood Count 1.5 1.4 Red Blood Count 2.55 2.91 Hemoglobin 8.0 9.0 Hematocrit 24.2 27.7 Mean Corpuscular Volume 95.0 95.0 Mean Corpuscular Hemoglobin 31.5 31.1 Mean Corpuscular Hemoglobin Concent 33.2 32.7 Red Cell Distribution Width 14.4 14.2 Platelet Count 108 122 Mean Platelet Volume 8.7 8.8 Neutrophils (%) (Auto) 30.4 27.3 Lymphocytes (%) (Auto) 26.2 23.9 Monocytes (%) (Auto) 16.6 19.1 Eosinophils (%) (Auto) 26.4 29.4 Basophils (%) (Auto) 0.4 0.3 Neutrophils # (Auto) 0.5 0.4 Lymphocytes # (Auto) 0.4 0.3 Monocytes # (Auto) 0.2 0.3 Eosinophils # (Auto) 0.4 0.4 Basophils # (Auto) 0.0 0.0 CBC Comment AUTO DIFF AUTO DIFF Differential Total Cells Counted 100 Neutrophils % (Manual) 33 Band Neutrophils % 1 Lymphocytes % 36 Monocytes % 11 Eosinophils % 19 Neutrophils # (Manual) 0.5 Differential Comment FINAL DIFF MANUAL Platelet Estimate LOW Platelet Morphology Comment NORMAL Ovalocytes 2+ Erythrocyte Sedimentation Rate 53 Blood Urea Nitrogen 10 8 Creatinine 0.60 0.73 Random Glucose 71 91 Total Protein 5.7 Albumin 2.6 Calcium Level 7.2 8.8 Alkaline Phosphatase 50 Aspartate Amino Transf (AST/SGOT) 12 Alanine Aminotransferase (ALT/SGPT) 9 Lactate Dehydrogenase 168 Total Bilirubin 0.2 Sodium Level 143 140 Potassium Level 3.5 4.1 Chloride Level 111 106 Carbon Dioxide Level 26.3 28.4 Anion Gap 6 6 Estimat Glomerular Filtration Rate 181 144 Protein Corrected Calcium 7.9 Lipase 112 Magnesium Level 2.0 Date/Time Source Procedure Growth Status 10/15/17 11:00 Blood Peripheral Mycobacterial Culture Pending Received 10/13/17 14:05 Nasal Washing Influenza Types A,B Antigen (SHAILESH) - Final NEGATIVE FOR FLU A AND B ANTIGEN.... Complete 10/15/17 06:20 Urine Random Urine Legionella Antigen - Final PRESUMPTIVE NEGATIVE FOR LEGIONELLA P... Complete 10/15/17 06:20 Urine Random Urine Streptococcus pneumoniae Antigen (M - Final PRESUMPTIVE NEGATIVE FOR STREPTOCOCCU... Complete Imaging Last Impressions Chest CT 10/15/17 0000 Signed Impressions: Service Date/Time: Monday, October 16, 2017 00:50 - CONCLUSION: Focal consolidation or atelectasis at the inferior right upper lobe and at the medial right lower lobe. Areas of pneumonia should be considered. There is a mildly prominent right hilar lymph node. Jose Dean MD Abdomen/Pelvis CT 10/15/17 0000 Signed Impressions: Service Date/Time: Monday, October 16, 2017 00:48 - CONCLUSION: No acute abnormality is seen in the abdomen and pelvis. Jose Dean MD Abdomen X-Ray 10/15/17 0000 Signed Impressions: Service Date/Time: September 19:25 - CONCLUSION: Suspected developing small bowel obstruction. No free air. Jose Miranda MD Chest X-Ray 10/13/17 0000 Signed Impressions: Service Date/Time: Friday, October 13, 2017 13:37 - CONCLUSION: 1. Right upper lobe airspace consolidation consistent with pneumonia given history. Jim Calixto MD Physical Exam HEENT: Pupils round and reactive to light; normocephalic; atraumatic; no jaundice. Oral cavity clean NECK: Neck is supple, no JVD, no lymphadenopathy. CHEST: Chest diminished sounds especially on the right CARDIAC: Regular rate and rhythm with no murmur gallop or rubs. ABDOMEN: Soft, nondistended, right upper quadrant mild tenderness often known; bowel sounds are present 4 quadrants EXTREMITIES: No clubbing, cyanosis, or edema. SKIN: Dry no rash; no jaundice. DEAN OF GRADUATE STUDIES: No focal deficits; alert and oriented times three., Voice clear (Becca Shields) Assessment and Plan Plan ASSESSMENT and history - n/v - suspect at least in part d/t constipation, no bm in 2 weeks. KUB 10/13 showed mild constipation got colace in ER and says he then started passing gas and feels better today , wants to eat. Had EGD 05/2017 consistent with maryana esophagitis, gastritis, path maryana. Mild minimal esophagitis Some stool throughout the colon - recent change bowel habits - constipation 2 weeks ago. had colonoscopy 2016 normal rectum and cecum. We'll repeat KUB in a.m., patient has bowel sounds, based on previous study from 10-15, currently patient is having small loose stools. - Anemia, currently stable at 9. No active bleeding noted - Right upper quadrant pain continues sharp in nature after grumbling of his abdomen, patient denies any nausea or vomiting, possible constipation or ileus? PLAN: Diet for all clear liquids, started today at lunch Repeat KUB today 10/17/17 for comparison 1400 Probiotics daily Stool softener on a daily basis, daily MiraLAX Zantac by mouth twice a day, may use tablet on DC 150 mg Call for any acute bleeding or changes Monitor labs No reason for the patient's chest pain on this exam very minimal esophagitis, may use H2 susanna such as Zantac 150 twice a day daily Consider Further workup for chest pain may be needed by primary team This patient was seen by myself and Dr. Jernigan, note written on his behalf (Becca Shields) Plan agree with above note, no acute ABd on CT or KUB, tolerating diet, advance as tolerated, we will FU as needed (Ann Marie Jernigan MD) Becca Shields Oct 16, 2017 11:24 Ann Marie Jernigan MD Oct 16, 2017 15:38
--- NOTE | 2017-10-16 11:36 | HHI.PR ---
Subjective Remarks Follow-up abdominal pain. Reports of epigastric discomfort. Passing flatus. He had bowel movement yesterday. No abdominal distention. No nausea or vomiting. Objective Vitals Vital Signs Date Time Temp Pulse Resp B/P (MAP) Pulse Ox O2 Delivery O2 Flow Rate FiO2 10/16/17 10:53 96.9 64 18 114/77 (89) 100 10/16/17 07:41 95.5 76 18 118/76 (90) 100 10/16/17 03:26 98.0 75 15 118/71 (87) 100 10/16/17 00:12 97.6 75 16 119/81 (94) 100 10/15/17 20:46 98.3 70 16 117/64 (81) 100 10/15/17 16:14 97.7 76 18 127/76 (93) 100 10/15/17 12:15 98.1 75 19 112/66 (81) 100 I/O 10/15/17 10/15/17 10/15/17 10/16/17 10/16/17 10/16/17 07:00 15:00 23:00 07:00 15:00 23:00 Intake Total 1100 ml 150 ml 100 ml 1515 ml Balance 1100 ml 150 ml 100 ml 1515 ml Intake IV Total 1100 ml 100 ml 1515 ml Other 150 ml # Voids 6 1 # Bowel Movements 5 Result Diagram: 10/16/17 0859 10/16/17 0839 Imaging Last Impressions Abdomen X-Ray 10/16/17 0000 Signed Impressions: Service Date/Time: Monday, October 16, 2017 11:55 - CONCLUSION: Stool otherwise negative Mick Blas MD FACR Chest CT 10/15/17 0000 Signed Impressions: Service Date/Time: Monday, October 16, 2017 00:50 - CONCLUSION: Focal consolidation or atelectasis at the inferior right upper lobe and at the medial right lower lobe. Areas of pneumonia should be considered. There is a mildly prominent right hilar lymph node. Jose Dean MD Abdomen/Pelvis CT 10/15/17 0000 Signed Impressions: Service Date/Time: Monday, October 16, 2017 00:48 - CONCLUSION: No acute abnormality is seen in the abdomen and pelvis. Jose Dean MD Chest X-Ray 10/13/17 0000 Signed Impressions: Service Date/Time: Friday, October 13, 2017 13:37 - CONCLUSION: 1. Right upper lobe airspace consolidation consistent with pneumonia given history. Jim Calixto MD Objective Remarks GENERAL: This is a well-nourished, well-developed patient, in no apparent distress. SKIN: No ecchymoses, sided orbital skin dryness and flaking, no open sores. Cool and dry. Tongue no abscess noted CARDIOVASCULAR: Regular rate and rhythm without murmurs, gallops, or rubs. RESPIRATORY: Bilateral lower lobes diminished. No wheezes, rales, or rhonchi. GASTROINTESTINAL: Abdomen soft, mild epigastric tenderness, nondistended. No palpable masses. No guarding. MUSCULOSKELETAL: Extremities without clubbing, cyanosis, or edema. No joint tenderness, effusion, or edema noted. No calf tenderness. NEUROLOGICAL: Awake and alert oriented x3. Cranial nerves II through XII intact. Motor and sensory grossly within normal limits. Five out of 5 muscle strength in all muscle groups. Normal speech. Procedures EGD and cscope A/P Problem List: (1) Right upper lobe pneumonia ICD Code: J18.1 - Lobar pneumonia, unspecified organism (2) HIV disease ICD Code: B20 - Human immunodeficiency virus [HIV] disease Status: Acute (3) Burkitt lymphoma ICD Code: C83.70 - Burkitt lymphoma, unspecified site Status: Acute (4) Dara esophagitis ICD Code: B37.81 - Candidal esophagitis Status: Acute Assessment and Plan 42-year-old male who is HIV positive, unknown last CD4 count, history of Burkitt 's Lymphoma, neuropathy, and anemia presents to the ED with complaints of cough , SOB, fever, chills, nausea, and vomiting. Community acquired pneumonia Possibly aspiration pneumonia Coag-negative bacteremia likely contamination -Continue IV vancomycin, Rocephin and Zithromax per ID. Follow cultures Sepsis 2/2 above Pancytopenia with history of Burkitt's lymphoma. Hematology consulted and wants to restage patient Nausea/vomiting. Improved Oral candidiasis Abdominal pain. Possible SBO - Was last seen by GI in May of 2017 at that time he underwent EGD which showed exudate consistent with esophageal candidal infection. Also underwent colonoscopy which was normal. - Consult GI, appreciate recommendations. Rpt EGD with mild esophagitis , continue Zantac - Will ct fluconazole 200 mg by mouth, oral hygiene - Repeat KUB with no obstruction. Start clear liquids Constipation,acute -Rpt cscope with incomplete prep -Ct bowel regimen, Miralax added DVT prophylaxis- SCDs, early ambulation Discharge Planning Not ready for discharge stable on iv abx Armani Morris MD Oct 16, 2017 11:36
[2017-10-16 12:04] LABS: BANDS 7 % (0-6); LYMPHOCYTES 32 % (9-44); MONOCYTES 12 % (0-8); POLYS (SEG NEUTROPHILS) 22 % (16-70)
[2017-10-16 12:06] LABS: OVALOCYTES 1+ (NORMAL)
--- NOTE | 2017-10-16 12:06 | RADRPT ---
EXAM DATE/TIME: 10/16/2017 11:55 [facility] COMPARISON: ABDOMEN KUB ONLY, October 15, 2017, 19:25. INDICATIONS : Abdominal pain SURGICAL HISTORY : None. ENCOUNTER: Subsequent PAIN SCORE: 9/10 LOCATION: Bilateral Abdomen FINDINGS: Scattered stool in descending colon. Minimal gas descending colon. No free air no obstruction The p ortion of the bony skeleton visualized is unremarkable. . CONCLUSION: Stool otherwise negative Mick Blas MD FACR on October 16, 2017 at 12:02 Board Certified Radiologist. This report was verified electronically.
[2017-10-16 12:28] LABS: NEUTROPHIL # MANUAL DIFF 0.4 TH/MM3 (1.8-7.7)
[2017-10-16 12:56] LABS: HEPATITIS A AB IGM NEGATIVE (NEGATIVE); HEPATITIS B CORE AB IGM NEGATIVE (NEGATIVE); HEPATITIS B SURFACE ANTIGEN NEGATIVE (NEGATIVE); HEPATITIS C AB IgG NEGATIVE (NEGATIVE)
[2017-10-16] MEDS: AZITHROMYCIN INJ 250 MG in SODIUM CHLOR 0.9% 250 ML INJ 250 ML IV SCH (15:59)
[2017-10-16] MEDS: cefTRIAXone INJ 1,000 MG in SODIUM CHLORIDE 0.9% INJ 100 ML IV SCH (17:26)
[2017-10-17] MEDS ORDERED: PHARMACY ORDERED LAB ONE (02:45)
[2017-10-17 03:14] LABS: HEMATOCRIT 26.8 % (39.0-51.0); HEMOGLOBIN 8.7 GM/DL (13.0-17.0); MEAN CELL VOLUME 95.4 FL (80.0-100.0); MEAN CORPUSCULAR HEMOGLOBIN 31.1 PG (27.0-34.0); MEAN CORPUSCULAR HGB CONC 32.6 % (32.0-36.0); MEAN PLATELET VOLUME 8.9 FL (7.0-11.0); PLATELET COUNT 111 TH/MM3 (150-450); RED BLOOD COUNT 2.81 MIL/MM3 (4.50-5.90); RED CELL DISTRIBUTION WIDTH 14.4 % (11.6-17.2); WHITE BLOOD COUNT 1.3 TH/MM3 (4.0-11.0)
[2017-10-17 04:01] LABS: BICARBONATE 30.7 MEQ/L (21.0-32.0); CALCIUM 8.5 MG/DL (8.5-10.1); CREATININE 0.69 MG/DL (0.60-1.30)
[2017-10-17 04:02] LABS: VANCOMYCIN TROUGH 21.3 MCG/ML (5.0-10.0)
[2017-10-17] MEDS: VANCOMYCIN INJ 1,500 MG in SODIUM CHLORID 0.9% 500 ML INJ 500 ML IV SCH (04:42)
[2017-10-17 04:45] VITALS: BP 114/80; PULSE 75; RESP 17; TEMP 97.6; O2SAT 96
[2017-10-17 05:24] LABS: BANDS 1 % (0-6); LYMPHOCYTES 30 % (9-44); MONOCYTES 7 % (0-8); NEUTROPHIL # MANUAL DIFF 0.3 TH/MM3 (1.8-7.7); POLYS (SEG NEUTROPHILS) 23 % (16-70)
[2017-10-17 05:25] LABS: OVALOCYTES 1+ (NORMAL)
[2017-10-17] MEDS: SODIUM CHLOR 0.9% 1000 ML INJ 1,000 ML IV SCH ×2 (06:13→17:49)
[2017-10-17 08:00] VITALS: BP 118/72; PULSE 62; RESP 18; TEMP 98.1; O2SAT 97
[2017-10-17] MEDS: SODIUM CHLORIDE 0.9% FLUSH 10 ML FLUSH IV FLUSH SCH ×2 (09:00→21:00)
--- NOTE | 2017-10-17 10:06 | HHI.PR ---
Subjective Remarks f/u for abdominal pain patient asking to eat food. he stated he only have abdominal pain and vomiting for 1 days. He said that he does not know why he can eat food. Currently on a clear liquid diet and tolerating food. Otherwise patient asking to go home. Deny any shortness of breathing or cough. Objective Vitals Vital Signs Date Time Temp Pulse Resp B/P (MAP) Pulse Ox O2 Delivery O2 Flow Rate FiO2 10/17/17 04:45 97.6 75 17 114/80 (91) 96 10/16/17 23:32 97.5 64 15 130/81 (97) 100 10/16/17 21:16 97.9 79 16 123/70 (87) 100 10/16/17 15:10 99.8 74 18 130/66 (87) 100 10/16/17 15:00 70 10/16/17 10:53 96.9 64 18 114/77 (89) 100 I/O 10/16/17 10/16/17 10/16/17 10/17/17 10/17/17 10/17/17 07:00 15:00 23:00 07:00 15:00 23:00 Intake Total 1515 ml 600 ml Balance 1515 ml 600 ml Intake IV Total 1515 ml 600 ml # Voids 2 2 Result Diagram: 10/17/17 0250 10/17/17 0250 Objective Remarks GENERAL: in NAD CARDIOVASCULAR: Regular rate and rhythm without murmurs, gallops, or rubs. RESPIRATORY: Breath sounds equal bilaterally. No accessory muscle use. GASTROINTESTINAL: Abdomen soft, non-tender, nondistended. MUSCULOSKELETAL: No cyanosis, or edema. BACK: Nontender without obvious deformity. No CVA tenderness. Procedures EGD and cscope Medications and IVs Current Medications Acetaminophen (Tylenol) 650 mg ONCE ONCE PO Last administered on 10/13/17at 14: 59; Start 10/13/17 at 14:00; Stop 10/13/17 at 14:01; Status DC Sodium Chloride 1,000 ml @ 999 mls/hr BOLUS ONCE IV Last administered on 10/13at 14:00; Start 10/13/17 at 14:00; Stop 10/13/17 at 15:00; Status DC Ondansetron HCl (Zofran Inj) 4 mg ONCE ONCE IV PUSH Last administered on at 14:59; Start 10/13/17 at 14:00; Stop 10/13/17 at 14:01; Status DC Ceftriaxone Sodium 1000 mg/ Sodium Chloride 100 ml @ 200 mls/hr ONCE ONCE IV Last administered on 10/13/17at 17:10; Start 10/13/17 at 15:00; Stop 10/13/17 at 15:29; Status DC Azithromycin 500 mg/Sodium Chloride 250 ml @ 250 mls/hr ONCE ONCE IV Last administered on 10/13/17at 15:00; Start 10/13/17 at 15:00; Stop 10/13/17 at 15:59 ; Status DC Sodium Chloride 1,000 ml @ 100 mls/hr Q10H IV Last administered on 10/17/17at 06:13; Start 10/13/17 at 15:56 Sodium Chloride (NS Flush) 2 ml UNSCH PRN IV FLUSH FLUSH AFTER USING IV ACCESS ; Start 10/13/17 at 16:00 Sodium Chloride (NS Flush) 2 ml BID IV FLUSH Last administered on 10/16/17at 11: 11; Start 10/13/17 at 21:00 Naloxone HCl (Narcan Inj) 0.4 mg UNSCH PRN IV PUSH SEE LABEL COMMENTS; Start at 16:00 Clindamycin/ Sodium Chloride 50 ml @ 100 mls/hr Q8H IV Last administered on at 09:28; Start 10/13/17 at 17:00; Stop 10/14/17 at 15:04; Status DC Lactobacillus Acidophilus (Lactinex Pkt) 1 gm QID PO Last administered on at 12:24; Start 10/13/17 at 18:00 Senna/Docusate Sodium (America-Colace) 1 tab BID PO Last administered on at 13:46; Start 10/13/17 at 21:00 Magnesium Hydroxide (Milk Of Magnesia Liq) 30 ml Q12H PRN PO Mild constipation ; Start 10/13/17 at 18:45 Sennosides (Senokot) 17.2 mg Q12H PRN PO Moderate constipation; Start 10/13/17 at 18:45 Bisacodyl (Dulcolax Supp) 10 mg DAILY PRN RECTAL SEVERE CONSITIPATION; Start at 18:45 Lactulose (Lactulose Liq) 30 ml DAILY PRN PO SEVERE CONSITIPATION; Start at 18:45 Ondansetron HCl (Zofran Inj) 4 mg Q8HR PRN IV PUSH NAUSEA OR VOMITING; Start at 18:45 Fluconazole (Diflucan) 200 mg DAILY PO Last administered on 10/16/17at 11:12; Start 10/14/17 at 09:00 Polyethylene Glycol/ Electrolytes (Colyte Liq) 4,000 ml ONCE ONCE PO Last administered on 10/14/17at 12:04; Start 10/14/17 at 09:30; Stop 10/14/17 at 09:55 ; Status DC Ceftriaxone Sodium 1000 mg/ Sodium Chloride 100 ml @ 200 mls/hr Q24H IV Last administered on 10/16/17at 17:26; Start 10/14/17 at 17:00 Azithromycin 250 mg/Sodium Chloride 250 ml @ 250 mls/hr Q24H IV ; Start at 15:00; Stop 10/14/17 at 17:44; Status DC Metronidazole 100 ml @ 100 mls/hr Q6H IV Last administered on 10/15/17at 04:23 ; Start 10/14/17 at 16:00; Stop 10/15/17 at 12:26; Status DC Azithromycin 250 mg/Sodium Chloride 250 ml @ 250 mls/hr Q24H IV Last administered on 10/16/17at 15:59; Start 10/14/17 at 18:00 Pharmacy Profile Note 0 ml @ 0 mls/hr UNSCH OTHER ; Start 10/15/17 at 12:30 Vancomycin HCl 1500 mg/Sodium Chloride 515 ml @ 250 mls/hr Q12H IV Last administered on 10/16/17at 18:44; Start 10/15/17 at 15:00; Stop 10/17/17 at 08:44 ; Status DC Miscellaneous Information SPECIFIC LAB TO BE DRAWN:VANCOMYCIN TROUGH DATE TO... ONCE ONCE .XX Last administered on 10/17/17at 02:50; Start 10/17/17 at 02:45; Stop 10/17/17 at 02:46; Status DC Famotidine (Pepcid) 20 mg Q12HR PO Last administered on 10/16/17at 11:12; Start 10/15/17 at 21:00; Stop 10/16/17 at 11:28; Status DC Polyethylene Glycol (Miralax) 17 gm DAILY PO Last administered on 10/15/17at 16: 58; Start 10/15/17 at 15:30 Diatrizoate Meglum/ Diatrizoate Sod ( Gastrokelly Liq) 18 ml ONCE ONCE PO Last administered on 10/15/17at 22:44; Start 10/15/17 at 19:30; Stop 10/15/17 at 19:31; Status DC Morphine Sulfate (Morphine Inj) 4 mg Q3H PRN IV PUSH pain > 5 Last administered on 10/15/17at 20:17; Start 10/15/17 at 20:15; Stop 10/16/17 at 02:03 ; Status DC Iohexol (Omnipaque 350 Inj) 100 ml STK-MED ONCE IVCONTRAST Last administered on 10/16/17at 00:55; Start 10/16/17 at 00:55; Stop 10/16/17 at 00:59; Status DC Miscellaneous Information ALL NURSING DEPARTME... UNSCH PRN .XX SEE LABEL COMMENTS; Start 10/16/17 at 05:15; Stop 10/17/17 at 05:14; Status DC Famotidine (Pepcid) 20 mg BID PO Last administered on 10/16/17at 20:26; Start at 12:00 Vancomycin HCl 1250 mg/Sodium Chloride 262.5 ml @ 250 mls/hr Q12H IV ; Start at 10:00 Miscellaneous Information SPECIFIC LAB TO BE MARIANGEL... ONCE ONCE .XX ; Start 10/18 at 21:45; Stop 10/18/17 at 21:46 A/P Problem List: (1) Right upper lobe pneumonia ICD Code: J18.1 - Lobar pneumonia, unspecified organism (2) HIV disease ICD Code: B20 - Human immunodeficiency virus [HIV] disease Status: Acute (3) Burkitt lymphoma ICD Code: C83.70 - Burkitt lymphoma, unspecified site Status: Acute (4) Dara esophagitis ICD Code: B37.81 - Candidal esophagitis Status: Acute Assessment and Plan 42-year-old male who is HIV positive, unknown last CD4 count, history of Burkitt 's Lymphoma, neuropathy, and anemia presents to the ED with complaints of cough , SOB, fever, chills, nausea, and vomiting. Community acquired pneumonia Possibly aspiration pneumonia Coag-negative bacteremia likely contamination -Continue IV vancomycin, Rocephin and Zithromax per ID. Follow cultures Sepsis 2/2 above Pancytopenia with history of Burkitt's lymphoma. Hematology consulted and wants to restage patient Nausea/vomiting. Improved Oral candidiasis Abdominal pain resolved. - EGD done on 10/16 showed mild esophagitis , continue Zantac - Will ct fluconazole 200 mg by mouth, oral hygiene -Patient is asymptomatic so will advance diet to record diet. Constipation,acute -Rpt scope with incomplete prep -Ct bowel regimen, Miralax added Burkitt's Lymphoma -Being restage by oncologist. DVT prophylaxis- SCDs, early ambulation Discharge Planning Patient can be discharged once infectious workup is completed and cleared by infectious disease. Minoo Juares MD Oct 17, 2017 10:06
--- NOTE | 2017-10-17 10:08 | PD.ONC.PN ---
Subjective Subjective Remarks Afebrile Overall feeling better Shortness of breath improved Asking when he might be discharged Objective Data Date Time Temp Pulse Resp B/P (MAP) Pulse Ox O2 Delivery O2 Flow Rate FiO2 10/17/17 04:45 97.6 75 17 114/80 (91) 96 10/16/17 23:32 97.5 64 15 130/81 (97) 100 10/16/17 21:16 97.9 79 16 123/70 (87) 100 10/16/17 15:10 99.8 74 18 130/66 (87) 100 10/16/17 15:00 70 10/16/17 10:53 96.9 64 18 114/77 (89) 100 10/17/17 10/17/17 10/17/17 07:00 15:00 23:00 Intake Total 600 ml Balance 600 ml Result Diagram: 10/17/17 0250 10/17/17 0250 Laboratory Results Laboratory Tests Test 10/17/17 02:50 White Blood Count 1.3 TH/MM3 Red Blood Count 2.81 MIL/MM3 Hemoglobin 8.7 GM/DL Hematocrit 26.8 % Mean Corpuscular Volume 95.4 FL Mean Corpuscular Hemoglobin 31.1 PG Mean Corpuscular Hemoglobin Concent 32.6 % Red Cell Distribution Width 14.4 % Platelet Count 111 TH/MM3 Mean Platelet Volume 8.9 FL CBC Comment AUTO DIFF Differential Total Cells Counted 100 Neutrophils % (Manual) 23 % Band Neutrophils % 1 % Lymphocytes % 30 % Monocytes % 7 % Eosinophils % 39 % Neutrophils # (Manual) 0.3 TH/MM3 Differential Comment FINAL DIFF MANUAL Platelet Estimate LOW Platelet Morphology Comment NORMAL Ovalocytes 1+ Blood Urea Nitrogen 6 MG/DL Creatinine 0.69 MG/DL Random Glucose 88 MG/DL Calcium Level 8.5 MG/DL Magnesium Level 2.0 MG/DL Sodium Level 143 MEQ/L Potassium Level 3.9 MEQ/L Chloride Level 109 MEQ/L Carbon Dioxide Level 30.7 MEQ/L Anion Gap 3 MEQ/L Estimat Glomerular Filtration Rate 154 ML/MIN Vancomycin Level Trough 21.3 MCG/ML Culture Results Microbiology Date/Time Source Procedure Growth Status 10/15/17 11:00 Blood Peripheral Mycobacterial Culture Pending Received 10/15/17 06:20 Urine Random Urine Legionella Antigen - Final PRESUMPTIVE NEGATIVE FOR LEGIONELLA P... Complete 10/15/17 06:20 Urine Random Urine Streptococcus pneumoniae Antigen (M - Final PRESUMPTIVE NEGATIVE FOR STREPTOCOCCU... Complete Administered Medications Medications (Trade) Dose Ordered Sig/Braulio Route PRN Reason Start Time Stop Time Status Last Admin Dose Admin Sodium Chloride 1,000 ml @ 100 mls/hr Q10H IV 10/13/17 15:56 10/17/17 06:13 Sodium Chloride (NS Flush) 2 ml BID IV FLUSH 10/13/17 21:00 10/16/17 11:11 Lactobacillus Acidophilus (Lactinex Pkt) 1 gm QID PO 10/13/17 18:00 10/16/17 12:24 Senna/Docusate Sodium (America-Colace) 1 tab BID PO 10/13/17 21:00 10/15/17 13:46 Fluconazole (Diflucan) 200 mg DAILY PO 10/14/17 09:00 10/16/17 11:12 Ceftriaxone Sodium 1000 mg/ Sodium Chloride 100 ml @ 200 mls/hr Q24H IV 10/14/17 17:00 10/16/17 17:26 Azithromycin 250 mg/Sodium Chloride 250 ml @ 250 mls/hr Q24H IV 10/14/17 18:00 10/16/17 15:59 Polyethylene Glycol (Miralax) 17 gm DAILY PO 10/15/17 15:30 10/15/17 16:58 Famotidine (Pepcid) 20 mg BID PO 10/16/17 12:00 10/16/17 20:26 Objective Remarks GENERAL: Chronically ill-appearing older male resting in bed watching TV in no acute distress SKIN: Warm and dry. HEAD: Normocephalic. EYES: No injection or drainage. NECK: Supple, trachea midline. CARDIOVASCULAR: Regular rate and rhythm without murmurs. RESPIRATORY: Clear posteriorly. Breathing unlabored at rest. GASTROINTESTINAL: Abdomen soft, non-tender, nondistended. EXTREMITIES: No cyanosis, or edema. MUSCULOSKELETAL: Adequate muscle tone. NEUROLOGICAL: No obvious focal deficit. Awake, alert, and oriented x3. Assessment/Plan Assessment 42 y/o male with history of HIV and Burkitt's lymphoma admitted with shortness of breath found to have pneumonia and pancytopenia Plan 1. Fortunately the patient's restaging CT scan of chest abdomen pelvis shows no obvious bulky lymphadenopathy to suggest a relapse of his lymphoma. LDH is normal. 2. The question remains of that being the pancytopenia. He may need a bone marrow biopsy for further evaluation, however this can be done on an outpatient basis. 3. Monitor CBC Attending Statement The exam, history, and the medical decision-making described in the above note were completed with the assistance of the mid-level provider. I reviewed and agree with the findings presented. I attest that I had a [id number] encounter with the patient on the same day, and personally performed and documented my assessment and findings in the medical record. patient remains ill with persistent neutropenia without explanation. he is afebrile and exam notable for thrush. will continue antibiotics and if not not better will probably require a bone marrow which can be done on Thursday. Hilaria Gerber Oct 17, 2017 10:08 Jordan Marina MD Oct 17, 2017 16:56
[2017-10-17] MEDS: LACTOBACILLUS ACIDOPHILUS 1 GM PACKET PO SCH ×4 (13:00→21:00)
[2017-10-17] MEDS: FLUCONAZOLE 100 MG TAB PO SCH (13:23)
[2017-10-17] MEDS: FAMOTIDINE 20 MG TAB PO SCH ×2 (13:24→21:32)
[2017-10-17] MEDS: POLYETHYLENE GLYCOL 17 GM PKG PO SCH (13:24)
[2017-10-17] MEDS: DOCUSATE SODIUM 50 MG/SENNA 8.6 MG TAB PO SCH ×2 (13:24→21:32)
[2017-10-17] MEDS: VANCOMYCIN INJ 1,250 MG in SODIUM CHLOR 0.9% 250 ML INJ 250 ML IV SCH ×2 (13:25→21:33)
[2017-10-17 13:45] VITALS: BP 131/82; PULSE 66; RESP 18; TEMP 98.7; O2SAT 100
[2017-10-17] MEDS ORDERED: EUCERIN CREAM 120 GM JAR TOPICAL PRN (17:00)
[2017-10-17] MEDS: cefTRIAXone INJ 1,000 MG in SODIUM CHLORIDE 0.9% INJ 100 ML IV SCH (17:47)
[2017-10-17 18:00] VITALS: BP 118/72; PULSE 70; RESP 18; TEMP 97.8; O2SAT 100
[2017-10-17] MEDS: AZITHROMYCIN INJ 250 MG in SODIUM CHLOR 0.9% 250 ML INJ 250 ML IV SCH (18:00)
--- NOTE | 2017-10-17 18:00 | HHI.IDPN ---
Subjective Subjective Remarks states he feels better ANC 300 afebrile scope w/o majr pathology blood clx + 09/24 with coag neg staph no c/o Antibiotics azithro CFTX fluconazole vanco Allergies: Coded Allergies: albuterol (Verified Allergy, Intermediate, Hives, 10/13/17) shortness of breath Objective . Vital Signs Date Time Temp Pulse Resp B/P (MAP) Pulse Ox O2 Delivery O2 Flow Rate FiO2 10/17/17 13:45 98.7 66 18 131/82 (98) 100 10/17/17 08:00 98.1 62 18 118/72 (87) 97 10/17/17 04:45 97.6 75 17 114/80 (91) 96 10/16/17 23:32 97.5 64 15 130/81 (97) 100 10/16/17 21:16 97.9 79 16 123/70 (87) 100 . Laboratory Tests Test 10/15/17 19:42 10/16/17 08:59 10/17/17 02:50 White Blood Count 1.5 TH/MM3 1.4 TH/MM3 1.3 TH/MM3 Red Blood Count 2.55 MIL/MM3 2.91 MIL/MM3 2.81 MIL/MM3 Hemoglobin 8.0 GM/DL 9.0 GM/DL 8.7 GM/DL Hematocrit 24.2 % 27.7 % 26.8 % Mean Corpuscular Volume 95.0 FL 95.0 FL 95.4 FL Mean Corpuscular Hemoglobin 31.5 PG 31.1 PG 31.1 PG Mean Corpuscular Hemoglobin Concent 33.2 % 32.7 % 32.6 % Red Cell Distribution Width 14.4 % 14.2 % 14.4 % Platelet Count 108 TH/MM3 122 TH/MM3 111 TH/MM3 Mean Platelet Volume 8.7 FL 8.8 FL 8.9 FL Neutrophils (%) (Auto) 30.4 % 27.3 % Lymphocytes (%) (Auto) 26.2 % 23.9 % Monocytes (%) (Auto) 16.6 % 19.1 % Eosinophils (%) (Auto) 26.4 % 29.4 % Basophils (%) (Auto) 0.4 % 0.3 % Neutrophils # (Auto) 0.5 TH/MM3 0.4 TH/MM3 Lymphocytes # (Auto) 0.4 TH/MM3 0.3 TH/MM3 Monocytes # (Auto) 0.2 TH/MM3 0.3 TH/MM3 Eosinophils # (Auto) 0.4 TH/MM3 0.4 TH/MM3 Basophils # (Auto) 0.0 TH/MM3 0.0 TH/MM3 CBC Comment AUTO DIFF AUTO DIFF AUTO DIFF Differential Total Cells Counted 100 100 100 Neutrophils % (Manual) 33 % 22 % 23 % Band Neutrophils % 1 % 7 % 1 % Lymphocytes % 36 % 32 % 30 % Monocytes % 11 % 12 % 7 % Eosinophils % 19 % 27 % 39 % Neutrophils # (Manual) 0.5 TH/MM3 0.4 TH/MM3 0.3 TH/MM3 Differential Comment FINAL DIFF MANUAL FINAL DIFF MANUAL FINAL DIFF MANUAL Platelet Estimate LOW LOW LOW Platelet Morphology Comment NORMAL NORMAL NORMAL Ovalocytes 2+ 1+ 1+ Erythrocyte Sedimentation Rate 53 mm/hr Keratocytes Laboratory Tests Test 10/15/17 19:42 10/16/17 08:39 10/17/17 02:50 Blood Urea Nitrogen 10 MG/DL 8 MG/DL 6 MG/DL Creatinine 0.60 MG/DL 0.73 MG/DL 0.69 MG/DL Random Glucose 71 MG/DL 91 MG/DL 88 MG/DL Total Protein 5.7 GM/DL Albumin 2.6 GM/DL Calcium Level 7.2 MG/DL 8.8 MG/DL 8.5 MG/DL Alkaline Phosphatase 50 U/L Aspartate Amino Transf (AST/SGOT) 12 U/L Alanine Aminotransferase (ALT/SGPT) 9 U/L Lactate Dehydrogenase 168 U/L Total Bilirubin 0.2 MG/DL Sodium Level 143 MEQ/L 140 MEQ/L 143 MEQ/L Potassium Level 3.5 MEQ/L 4.1 MEQ/L 3.9 MEQ/L Chloride Level 111 MEQ/L 106 MEQ/L 109 MEQ/L Carbon Dioxide Level 26.3 MEQ/L 28.4 MEQ/L 30.7 MEQ/L Anion Gap 6 MEQ/L 6 MEQ/L 3 MEQ/L Estimat Glomerular Filtration Rate 181 ML/MIN 144 ML/MIN 154 ML/MIN Protein Corrected Calcium 7.9 MG/DL Lipase 112 U/L Magnesium Level 2.0 MG/DL 2.0 MG/DL Microbiology Date/Time Source Procedure Growth Status 10/15/17 11:00 Blood Peripheral Mycobacterial Culture Pending Received 10/15/17 06:20 Urine Random Urine Legionella Antigen - Final PRESUMPTIVE NEGATIVE FOR LEGIONELLA P... Complete 10/15/17 06:20 Urine Random Urine Streptococcus pneumoniae Antigen (M - Final PRESUMPTIVE NEGATIVE FOR STREPTOCOCCU... Complete Imaging Last Impressions Abdomen X-Ray 10/16/17 0000 Signed Impressions: Service Date/Time: Monday, October 16, 2017 11:55 - CONCLUSION: Stool otherwise negative Mick Blas MD FACR Chest CT 10/15/17 0000 Signed Impressions: Service Date/Time: Monday, October 16, 2017 00:50 - CONCLUSION: Focal consolidation or atelectasis at the inferior right upper lobe and at the medial right lower lobe. Areas of pneumonia should be considered. There is a mildly prominent right hilar lymph node. Jose Dean MD Abdomen/Pelvis CT 10/15/17 0000 Signed Impressions: Service Date/Time: Monday, October 16, 2017 00:48 - CONCLUSION: No acute abnormality is seen in the abdomen and pelvis. Jose Dean MD Chest X-Ray 10/13/17 0000 Signed Impressions: Service Date/Time: Friday, October 13, 2017 13:37 - CONCLUSION: 1. Right upper lobe airspace consolidation consistent with pneumonia given history. Jim Calixto MD Physical Exam CONSTITUTIONAL/GENERAL: This is an adequately nourished patient, in no apparent distress. TUBES/LINES/DRAINS: SKIN: No jaundice, + scaly rash on face scalp cw seborreic dermatitis Skin temperature appropriate. Not diaphoretic. CARDIOVASCULAR: Regular rate and rhythm without murmurs, gallops, or rubs. No JVD. Peripheral pulses symmetric. RESPIRATORY/CHEST: Symmetric, unlabored respirations. Clear to auscultation. Breath sounds equal bilaterally. No wheezes, rales, or rhonchi. GASTROINTESTINAL: Abdomen soft, mildly tender diffusely , nondistended. No hepato-splenomegaly, or palpable masses. No guarding. Bowel sounds present. GENITOURINARY: Without palpable bladder distension. MUSCULOSKELETAL: Extremities without clubbing, cyanosis, or edema. No joint tenderness or effusion noted. No calf tenderness. No mottling or clubbing. NEUROLOGICAL: Awake and alert. Motor and sensory grossly within normal limits. Follows commands. Cognitively sharp. Moves all extremities. Assessment & Plan Remarks HIV dz. CD4 unknown On HAART - non compliant PNA - resolving clinically on current abx Constipation, abd pain - colonoscopy planned Neutropenia, with ANC< 500: hematological malignancy vs infx. Hem/onc consulted ? MAC CMV negative h/o Burkitt's lymphoma - hem/onc ff. CT C/A/P not sugg of lymphoma Low grade coag neg staph bacteremia - doubt clin significance dc vancomycin - fu CD4 count and VL - fu MAC monitor neutrophils agree with plan for bone marrow bx rechk CXR Amalia King MD Oct 17, 2017 18:00
[2017-10-17 20:00] VITALS: BP 125/82; PULSE 67; RESP 18; TEMP 97; O2SAT 100
[2017-10-17] MEDS: diphenhydrAMINE HCL 50 MG CAP PO PRN (21:40)
[2017-10-18] VITALS: BP 101/66; PULSE 67; RESP 18; TEMP 97.4; O2SAT 96
--- NOTE | 2017-10-18 02:53 | RADRPT ---
EXAM DATE/TIME: 10/18/2017 02:27 [facility] COMPARISON: CHEST SINGLE AP, May 20, 2017, 21:37. INDICATIONS : Shortness of breath, possible pneumothorax. MEDICAL HISTORY : Lymphoma. HIV. SURGICAL HISTORY : None. ENCOUNTER: Subsequent ACUITY: 4 - 6 days PAIN SCORE: 0/10 LOCATION: Bilateral chest FINDINGS: The heart size is normal. There is increased density at the inferior aspect of the right upper lobe a butting the minor fissure. This appears new. The left lung is clear. CONCLUSION: Mild consolidation or atelectasis at the inferior right upper lobe abutting the minor fissure. Jose Dean MD on October 18, 2017 at 2:50 Board Certified Radiologist. This report was verified electronically.
[2017-10-18] MEDS: SODIUM CHLOR 0.9% 1000 ML INJ 1,000 ML IV SCH (02:55)
[2017-10-18 04:00] VITALS: BP 121/68; PULSE 54; RESP 18; TEMP 97.4; O2SAT 97
[2017-10-18 08:00] VITALS: BP 119/73; PULSE 63; RESP 18; TEMP 97.2; O2SAT 100
[2017-10-18] MEDS: LACTOBACILLUS ACIDOPHILUS 1 GM PACKET PO SCH ×4 (09:00→21:00)
[2017-10-18] MEDS: SODIUM CHLORIDE 0.9% FLUSH 10 ML FLUSH IV FLUSH SCH ×2 (09:00→21:00)
--- NOTE | 2017-10-18 09:48 | PD.ONC.PN ---
Subjective Subjective Remarks Afebrile "I'd like to go home, but I understand if I have to stay" Requesting a regular diet Objective Data Date Time Temp Pulse Resp B/P (MAP) Pulse Ox O2 Delivery O2 Flow Rate FiO2 10/18/17 04:00 97.4 54 18 121/68 (85) 97 10/18/17 00:00 97.4 67 18 101/66 (78) 96 10/17/17 20:00 97.0 67 18 125/82 (96) 100 10/17/17 18:00 97.8 70 18 118/72 (87) 100 10/17/17 13:45 98.7 66 18 131/82 (98) 100 10/18/17 10/18/17 10/18/17 07:00 15:00 23:00 Intake Total 400 ml Output Total 600 ml Balance -200 ml Result Diagram: 10/17/17 0250 10/17/17 0250 Culture Results Microbiology Date/Time Source Procedure Growth Status 10/15/17 11:00 Blood Peripheral Mycobacterial Culture Pending Received Imaging Studies Last 24 hours Impressions Chest X-Ray 10/18/17 0600 Signed Impressions: Service Date/Time: Wednesday, October 18, 2017 02:27 - CONCLUSION: Mild consolidation or atelectasis at the inferior right upper lobe abutting the minor fissure. Jose Dean MD Administered Medications Medications (Trade) Dose Ordered Sig/Braulio Route PRN Reason Start Time Stop Time Status Last Admin Dose Admin Sodium Chloride 1,000 ml @ 100 mls/hr Q10H IV 10/13/17 15:56 10/17/17 17:49 Sodium Chloride (NS Flush) 2 ml BID IV FLUSH 10/13/17 21:00 10/16/17 11:11 Lactobacillus Acidophilus (Lactinex Pkt) 1 gm QID PO 10/13/17 18:00 10/17/17 18:31 Senna/Docusate Sodium ([place]-Colace) 1 tab BID PO 10/13/17 21:00 10/17/17 21:32 Fluconazole (Diflucan) 200 mg DAILY PO 10/14/17 09:00 10/17/17 13:23 Ceftriaxone Sodium 1000 mg/ Sodium Chloride 100 ml @ 200 mls/hr Q24H IV 10/14/17 17:00 10/17/17 17:47 Azithromycin 250 mg/Sodium Chloride 250 ml @ 250 mls/hr Q24H IV 10/14/17 18:00 10/17/17 18:00 Polyethylene Glycol (Miralax) 17 gm DAILY PO 10/15/17 15:30 10/17/17 13:24 Famotidine (Pepcid) 20 mg BID PO 10/16/17 12:00 10/17/17 21:32 Vancomycin HCl 1250 mg/Sodium Chloride 262.5 ml @ 250 mls/hr Q12H IV 10/17/17 10:00 10/17/17 21:33 Diphenhydramine HCl (Benadryl) 50 mg HS PRN PO itching 10/17/17 17:00 10/17/17 21:40 Objective Remarks GENERAL: Young man, sitting up in bed playing a game on his cell phone, eating breakfast in no obvious distress. SKIN: Warm and dry. Scattered areas of eczema. HEAD: Normocephalic. EYES: No injection or drainage. NECK: Supple, trachea midline. CARDIOVASCULAR: + S1/S2. No murmur noted. RESPIRATORY: Clear posteriorly. Breathing unlabored at rest. GASTROINTESTINAL: Abdomen soft, non-tender, nondistended. EXTREMITIES: No cyanosis, or edema. MUSCULOSKELETAL: Adequate muscle tone. Assessment/Plan Assessment 42 y/o male with history of HIV and Burkitt's lymphoma admitted with shortness of breath found to have pneumonia and pancytopenia Plan 1. The patient is clinically doing very well with reports of feeling better. He continues to be afebrile. 2. His CBC is pending today. Continue to monitor blood counts. Would consider G- CSF support, however this would skew the results of a bone marrow biopsy which we are planning for in the upcoming week. 3. Switch to regular diet. Attending Statement The exam, history, and the medical decision-making described in the above note were completed with the assistance of the mid-level provider. I reviewed and agree with the findings presented. I attest that I had a [id number] encounter with the patient on the same day, and personally performed and documented my assessment and findings in the medical record. neutropenia is persistent without explanation. will request bone marrow aspirate and bx tomorrow as at this point we do not have a direction. Hilaria Gerber Oct 18, 2017 09:48 Jordan Marina MD Oct 18, 2017 16:44
[2017-10-18] MEDS: DOCUSATE SODIUM 50 MG/SENNA 8.6 MG TAB PO SCH ×2 (09:55→21:00)
[2017-10-18] MEDS: VANCOMYCIN INJ 1,250 MG in SODIUM CHLOR 0.9% 250 ML INJ 250 ML IV SCH ×2 (09:55→22:00)
[2017-10-18] MEDS: FLUCONAZOLE 100 MG TAB PO SCH (09:55)
[2017-10-18] MEDS: POLYETHYLENE GLYCOL 17 GM PKG PO SCH (09:55)
[2017-10-18] MEDS: FAMOTIDINE 20 MG TAB PO SCH ×2 (09:55→21:13)
--- NOTE | 2017-10-18 10:50 | HHI.PR ---
Subjective Remarks For any coronary pneumonia and pancytopenia Patient tolerated heart healthy diet. Denies any abdominal pain. Denies any shortness of breathing or cough. He has no concerns. Objective Vitals Vital Signs Date Time Temp Pulse Resp B/P (MAP) Pulse Ox O2 Delivery O2 Flow Rate FiO2 10/18/17 08:00 97.2 63 18 119/73 (88) 100 10/18/17 04:00 97.4 54 18 121/68 (85) 97 10/18/17 00:00 97.4 67 18 101/66 (78) 96 10/17/17 20:00 97.0 67 18 125/82 (96) 100 10/17/17 18:00 97.8 70 18 118/72 (87) 100 10/17/17 13:45 98.7 66 18 131/82 (98) 100 I/O 10/17/17 10/17/17 10/17/17 10/18/17 10/18/17 10/18/17 07:00 15:00 23:00 07:00 15:00 23:00 Intake Total 600 ml 250 ml 1350 ml 400 ml Output Total 250 ml 600 ml Balance 600 ml 250 ml 1100 ml -200 ml Intake Oral 600 ml 400 ml IV Total 600 ml 250 ml 750 ml Output Urine Total 250 ml 600 ml # Voids 2 # Bowel Movements 1 Result Diagram: 10/17/17 0250 10/17/17 0250 Objective Remarks GENERAL: in NAD CARDIOVASCULAR: Regular rate and rhythm without murmurs, gallops, or rubs. RESPIRATORY: Breath sounds equal bilaterally. No accessory muscle use. GASTROINTESTINAL: Abdomen soft, non-tender, nondistended. MUSCULOSKELETAL: No cyanosis, or edema. BACK: Nontender without obvious deformity. No CVA tenderness. Procedures EGD and cscope Medications and IVs Current Medications Acetaminophen (Tylenol) 650 mg ONCE ONCE PO Last administered on 10/13/17at 14: 59; Start 10/13/17 at 14:00; Stop 10/13/17 at 14:01; Status DC Sodium Chloride 1,000 ml @ 999 mls/hr BOLUS ONCE IV Last administered on 10/13at 14:00; Start 10/13/17 at 14:00; Stop 10/13/17 at 15:00; Status DC Ondansetron HCl (Zofran Inj) 4 mg ONCE ONCE IV PUSH Last administered on at 14:59; Start 10/13/17 at 14:00; Stop 10/13/17 at 14:01; Status DC Ceftriaxone Sodium 1000 mg/ Sodium Chloride 100 ml @ 200 mls/hr ONCE ONCE IV Last administered on 10/13/17at 17:10; Start 10/13/17 at 15:00; Stop 10/13/17 at 15:29; Status DC Azithromycin 500 mg/Sodium Chloride 250 ml @ 250 mls/hr ONCE ONCE IV Last administered on 10/13/17at 15:00; Start 10/13/17 at 15:00; Stop 10/13/17 at 15:59 ; Status DC Sodium Chloride 1,000 ml @ 100 mls/hr Q10H IV Last administered on 10/17/17at 17:49; Start 10/13/17 at 15:56 Sodium Chloride (NS Flush) 2 ml UNSCH PRN IV FLUSH FLUSH AFTER USING IV ACCESS ; Start 10/13/17 at 16:00 Sodium Chloride (NS Flush) 2 ml BID IV FLUSH Last administered on 10/16/17at 11: 11; Start 10/13/17 at 21:00 Naloxone HCl (Narcan Inj) 0.4 mg UNSCH PRN IV PUSH SEE LABEL COMMENTS; Start at 16:00 Clindamycin/ Sodium Chloride 50 ml @ 100 mls/hr Q8H IV Last administered on at 09:28; Start 10/13/17 at 17:00; Stop 10/14/17 at 15:04; Status DC Lactobacillus Acidophilus (Lactinex Pkt) 1 gm QID PO Last administered on at 18:31; Start 10/13/17 at 18:00 Senna/Docusate Sodium (America-Colace) 1 tab BID PO Last administered on at 09:55; Start 10/13/17 at 21:00 Magnesium Hydroxide (Milk Of Magnesia Liq) 30 ml Q12H PRN PO Mild constipation ; Start 10/13/17 at 18:45 Sennosides (Senokot) 17.2 mg Q12H PRN PO Moderate constipation; Start 10/13/17 at 18:45 Bisacodyl (Dulcolax Supp) 10 mg DAILY PRN RECTAL SEVERE CONSITIPATION; Start at 18:45 Lactulose (Lactulose Liq) 30 ml DAILY PRN PO SEVERE CONSITIPATION; Start at 18:45 Ondansetron HCl (Zofran Inj) 4 mg Q8HR PRN IV PUSH NAUSEA OR VOMITING; Start at 18:45 Fluconazole (Diflucan) 200 mg DAILY PO Last administered on 10/18/17at 09:55; Start 10/14/17 at 09:00 Polyethylene Glycol/ Electrolytes (Colyte Liq) 4,000 ml ONCE ONCE PO Last administered on 10/14/17at 12:04; Start 10/14/17 at 09:30; Stop 10/14/17 at 09:55 ; Status DC Ceftriaxone Sodium 1000 mg/ Sodium Chloride 100 ml @ 200 mls/hr Q24H IV Last administered on 10/17/17at 17:47; Start 10/14/17 at 17:00 Azithromycin 250 mg/Sodium Chloride 250 ml @ 250 mls/hr Q24H IV ; Start at 15:00; Stop 10/14/17 at 17:44; Status DC Metronidazole 100 ml @ 100 mls/hr Q6H IV Last administered on 10/15/17at 04:23 ; Start 10/14/17 at 16:00; Stop 10/15/17 at 12:26; Status DC Azithromycin 250 mg/Sodium Chloride 250 ml @ 250 mls/hr Q24H IV Last administered on 10/17/17at 18:00; Start 10/14/17 at 18:00 Pharmacy Profile Note 0 ml @ 0 mls/hr UNSCH OTHER ; Start 10/15/17 at 12:30 Vancomycin HCl 1500 mg/Sodium Chloride 515 ml @ 250 mls/hr Q12H IV Last administered on 10/16/17at 18:44; Start 10/15/17 at 15:00; Stop 10/17/17 at 08:44 ; Status DC Miscellaneous Information SPECIFIC LAB TO BE DRAWN:VANCOMYCIN TROUGH DATE TO... ONCE ONCE .XX Last administered on 10/17/17at 02:50; Start 10/17/17 at 02:45; Stop 10/17/17 at 02:46; Status DC Famotidine (Pepcid) 20 mg Q12HR PO Last administered on 10/16/17at 11:12; Start 10/15/17 at 21:00; Stop 10/16/17 at 11:28; Status DC Polyethylene Glycol (Miralax) 17 gm DAILY PO Last administered on 10/18/17at 09: 55; Start 10/15/17 at 15:30 Diatrizoate Meglum/ Diatrizoate Sod (Md Sykes Liq) 18 ml ONCE ONCE PO Last administered on 10/15/17at 22:44; Start 10/15/17 at 19:30; Stop 10/15/17 at 19:31; Status DC Morphine Sulfate (Morphine Inj) 4 mg Q3H PRN IV PUSH pain > 5 Last administered on 10/15/17at 20:17; Start 10/15/17 at 20:15; Stop 10/16/17 at 02:03 ; Status DC Iohexol (Omnipaque 350 Inj) 100 ml STK-MED ONCE IVCONTRAST Last administered on 10/16/17at 00:55; Start 10/16/17 at 00:55; Stop 10/16/17 at 00:59; Status DC Miscellaneous Information ALL NURSING DEPARTME... UNSCH PRN .XX SEE LABEL COMMENTS; Start 10/16/17 at 05:15; Stop 10/17/17 at 05:14; Status DC Famotidine (Pepcid) 20 mg BID PO Last administered on 10/18/17at 09:55; Start at 12:00 Vancomycin HCl 1250 mg/Sodium Chloride 262.5 ml @ 250 mls/hr Q12H IV Last administered on 10/18/17at 09:55; Start 10/17/17 at 10:00 Miscellaneous Information SPECIFIC LAB TO BE MARIANGEL... ONCE ONCE .XX ; Start 10/18 at 21:45; Stop 10/18/17 at 21:46 Diphenhydramine HCl (Benadryl) 50 mg HS PRN PO itching Last administered on at 21:40; Start 10/17/17 at 17:00 Multi-Ingredient Ointment (Eucerin Cream) 1 applic Q6H PRN TOPICAL itching; Start 10/17/17 at 17:00 A/P Problem List: (1) Right upper lobe pneumonia ICD Code: J18.1 - Lobar pneumonia, unspecified organism (2) HIV disease ICD Code: B20 - Human immunodeficiency virus [HIV] disease Status: Acute (3) Burkitt lymphoma ICD Code: C83.70 - Burkitt lymphoma, unspecified site Status: Acute (4) Dara esophagitis ICD Code: B37.81 - Candidal esophagitis Status: Acute Assessment and Plan 42-year-old male who is HIV positive, unknown last CD4 count, history of Burkitt 's Lymphoma, neuropathy, and anemia presents to the ED with complaints of cough , SOB, fever, chills, nausea, and vomiting. Community acquired pneumonia Possibly aspiration pneumonia Coag-negative bacteremia likely contamination -on Rocephin and Zithromax per ID. vancomycin was discontinued yesterday. Follow cultures. Management per infectious disease. Sepsis 2/2 above Pancytopenia with history of Burkitt's lymphoma. -Unsure etiology. Oncologist following. If patient continues to not improve will plan for bone marrow biopsy on Thursday. Nausea/vomiting. Resolved. Oral candidiasis Abdominal pain resolved. - EGD done on 10/16 showed mild esophagitis , continue Zantac - Will ct fluconazole 200 mg by mouth, oral hygiene -On heart healthy diet which was changed to regular diet. Constipation,acute -Rpt scope with incomplete prep -Ct bowel regimen, Miralax added DVT prophylaxis- SCDs, early ambulation Discharge Planning Patient can be discharged once infectious workup is completed and cleared by infectious disease. Possible bone marrow biopsy tomorrow. d/w Hilaria Gerber, oncologist [facility]. Minoo Juares MD Oct 18, 2017 10:50
[2017-10-18 11:56] LABS: AUTOMATED NEUTROPHIL # 0.3 TH/MM3 (1.8-7.7); BASOPHIL % 0.4 % (0.0-2.0); EOSINOPHIL # 0.4 TH/MM3 (0-0.4); EOSINOPHIL % 28.2 % (0.0-4.0); HEMATOCRIT 27.4 % (39.0-51.0); HEMOGLOBIN 8.8 GM/DL (13.0-17.0); LYMPH % 31.7 % (9.0-44.0); LYMPHOCYTE # 0.5 TH/MM3 (1.0-4.8); MEAN CELL VOLUME 96.6 FL (80.0-100.0); MEAN CORPUSCULAR HEMOGLOBIN 30.9 PG (27.0-34.0); MEAN PLATELET VOLUME 9.1 FL (7.0-11.0); MONO % 22.2 % (0.0-8.0); MONOCYTE # 0.3 TH/MM3 (0-0.9); NEUT % 17.5 % (16.0-70.0); PLATELET COUNT 115 TH/MM3 (150-450); RED BLOOD COUNT 2.84 MIL/MM3 (4.50-5.90); RED CELL DISTRIBUTION WIDTH 14.7 % (11.6-17.2); WHITE BLOOD COUNT 1.6 TH/MM3 (4.0-11.0)
[2017-10-18 12:30] VITALS: BP 122/68; PULSE 70; RESP 18; TEMP 98; O2SAT 100
[2017-10-18 13:15] LABS: BANDS 1 % (0-6); LYMPHOCYTES 43 % (9-44); MONOCYTES 22 % (0-8); NEUTROPHIL # MANUAL DIFF 0.2 TH/MM3 (1.8-7.7); OVALOCYTES 1+ (NORMAL); POLYS (SEG NEUTROPHILS) 14 % (16-70)
--- NOTE | 2017-10-18 15:29 | RADRPT ---
EXAM DATE/TIME: 10/18/2017 14:39 [facility] COMPARISON: ABDOMEN KUB ONLY, October 16, 2017, 11:55. INDICATIONS : Evaluate for ileus/abdominal distention. MEDICAL HISTORY : None. SURGICAL HISTORY : None. ENCOUNTER: Subsequent ACUITY: 4 - 6 days PAIN SCORE: 4/10 LOCATION: Bilateral Abdomen. FINDINGS: 2 AP spine views of the abdomen. Scattered gas in the colon and small bowel. No gross bowel dilatatio n. Mild degenerative findings lumbar spine. CONCLUSION: Nonspecific bowel gas pattern. Sarmad Landers MD on October 18, 2017 at 15:26 Board Certified Radiologist. This report was verified electronically.
[2017-10-18 16:50] VITALS: BP 118/75; PULSE 71; RESP 18; TEMP 98.8; O2SAT 100
[2017-10-18] MEDS: cefTRIAXone INJ 1,000 MG in SODIUM CHLORIDE 0.9% INJ 100 ML IV SCH (17:00)
[2017-10-18 17:52] LABS: CD3-/CD16+CD56+ PERCENT 9 % (4-25); CD3-CD16+CD56+ (ABSOLUTE) 27 (70-760); LYMPHOCYTES, ABSOLUTE 307 (850-3900)
[2017-10-18 20:45] VITALS: BP 132/85; PULSE 71; RESP 16; TEMP 98.2; O2SAT 100
[2017-10-18] MEDS: AZITHROMYCIN INJ 250 MG in SODIUM CHLOR 0.9% 250 ML INJ 250 ML IV SCH (21:12)
[2017-10-18] MEDS: diphenhydrAMINE HCL 50 MG CAP PO PRN (21:13)
[2017-10-18] MEDS ORDERED: PHARMACY ORDERED LAB ONE (21:45)
[2017-10-19] VITALS (13 sets, daily range): BP systolic 118–140; BP diastolic 69–94; PULSE 54–100; RESP 16–18; TEMP 97.6–98.4; O2SAT 92–100
[2017-10-19] MEDS: SODIUM CHLOR 0.9% 1000 ML INJ 1,000 ML IV SCH ×2 (01:56→20:36)
[2017-10-19] MEDS ORDERED: ACETAMINOPHEN 325 MG TAB PO ONE (02:30)
[2017-10-19] MEDS ORDERED: WITCH HAZEL 50%/GLYCERIN 12.5% 40 PAD JAR TOPICAL PRN (02:30)
--- NOTE | 2017-10-19 08:05 | HHI.PR ---
Subjective Remarks In bed eating. Went for bone marrow biopsy in the morning. No pain at this time. Ms. denies fever or chills no nausea vomiting no diarrhea constipation. Possible discharge tomorrow Objective Vitals Vital Signs Date Time Temp Pulse Resp B/P (MAP) Pulse Ox O2 Delivery O2 Flow Rate FiO2 10/19/17 04:00 98.0 100 16 126/85 (99) 97 10/19/17 00:00 98.0 90 18 139/69 (92) 95 10/18/17 20:45 98.2 71 16 132/85 (101) 100 10/18/17 16:50 98.8 71 18 118/75 (89) 100 10/18/17 12:30 98.0 70 18 122/68 (86) 100 I/O 10/18/17 10/18/17 10/18/17 10/19/17 10/19/17 10/19/17 07:00 15:00 23:00 07:00 15:00 23:00 Intake Total 400 ml 250 ml 512.5 ml 480 ml Output Total 600 ml 600 ml Balance -200 ml 250 ml 512.5 ml -120 ml Intake Oral 400 ml 480 ml IV Total 250 ml 512.5 ml Output Urine Total 600 ml 600 ml # Bowel Movements 1 Result Diagram: 10/18/17 1031 10/17/17 0250 Imaging Last Impressions Abdomen X-Ray 10/18/17 1400 Signed Impressions: Service Date/Time: Wednesday, October 18, 2017 14:39 - CONCLUSION: Nonspecific bowel gas pattern. Sarmad Landers MD Chest X-Ray 10/18/17 0600 Signed Impressions: Service Date/Time: Wednesday, October 18, 2017 02:27 - CONCLUSION: Mild consolidation or atelectasis at the inferior right upper lobe abutting the minor fissure. Jose Dean MD Chest CT 10/15/17 0000 Signed Impressions: Service Date/Time: Monday, October 16, 2017 00:50 - CONCLUSION: Focal consolidation or atelectasis at the inferior right upper lobe and at the medial right lower lobe. Areas of pneumonia should be considered. There is a mildly prominent right hilar lymph node. Jose Dean MD Abdomen/Pelvis CT 10/15/17 0000 Signed Impressions: Service Date/Time: Monday, October 16, 2017 00:48 - CONCLUSION: No acute abnormality is seen in the abdomen and pelvis. Jose Dean MD Objective Remarks GENERAL: in NAD CARDIOVASCULAR: Regular rate and rhythm without murmurs, gallops, or rubs. RESPIRATORY: Breath sounds equal bilaterally. No accessory muscle use. GASTROINTESTINAL: Abdomen soft, non-tender, nondistended. MUSCULOSKELETAL: No cyanosis, or edema. BACK: Nontender without obvious deformity. No CVA tenderness. Procedures EGD and cscope status post bone marrow biopsy 10/19/17 A/P Problem List: (1) Right upper lobe pneumonia ICD Code: J18.1 - Lobar pneumonia, unspecified organism (2) HIV disease ICD Code: B20 - Human immunodeficiency virus [HIV] disease Status: Acute (3) Burkitt lymphoma ICD Code: C83.70 - Burkitt lymphoma, unspecified site Status: Acute (4) Dara esophagitis ICD Code: B37.81 - Candidal esophagitis Status: Acute Assessment and Plan 42-year-old male who is HIV positive, unknown last CD4 count, history of Burkitt 's Lymphoma, neuropathy, and anemia presents to the ED with complaints of cough , SOB, fever, chills, nausea, and vomiting. Community acquired pneumonia Possibly aspiration pneumonia Staph capitis likely contamination -on Rocephin and Zithromax per ID. vancomycin was discontinued. Follow cultures. Management per infectious disease. Sepsis 2/2 above Pancytopenia with history of Burkitt's lymphoma. -Unsure etiology. Oncologist following. If patient continues to not improve , status post bone marrow biopsy 10/19/17 Nausea/vomiting. Resolved. Oral candidiasis Abdominal pain resolved. - EGD done on 10/16 showed mild esophagitis , continue Zantac - Will ct fluconazole 200 mg by mouth, oral hygiene -On heart healthy diet which was changed to regular diet. Constipation,acute -Rpt scope with incomplete prep -Ct bowel regimen, Miralax added DVT prophylaxis- SCDs, early ambulation Discharge Planning Patient can be discharged once infectious workup is completed and cleared by infectious disease. s/p bone marrow biopsy Possible discharge tomorrow Milka Arora MD Oct 19, 2017 08:05
[2017-10-19] MEDS: SODIUM CHLORIDE 0.9% FLUSH 10 ML FLUSH IV FLUSH SCH ×2 (09:00→20:49)
[2017-10-19] MEDS: POLYETHYLENE GLYCOL 17 GM PKG PO SCH (09:00)
[2017-10-19] MEDS: FAMOTIDINE 20 MG TAB PO SCH ×2 (09:00→20:49)
[2017-10-19] MEDS ORDERED: VANCOMYCIN INJ 1,500 MG in SODIUM CHLORID 0.9% 500 ML INJ 500 ML IV SCH (09:00)
[2017-10-19] MEDS: DOCUSATE SODIUM 50 MG/SENNA 8.6 MG TAB PO SCH ×2 (09:00→20:48)
[2017-10-19] MEDS: LACTOBACILLUS ACIDOPHILUS 1 GM PACKET PO SCH ×4 (09:00→20:48)
[2017-10-19] MEDS ORDERED: fentaNYL CITRATE 250 MCG/5 ML AMP ONE (09:03)
[2017-10-19] MEDS ORDERED: MIDAZOLAM HCL 2 MG/2 ML VIAL ONE (09:03)
--- NOTE | 2017-10-19 09:49 | PD.ONC.PN ---
Subjective Subjective Remarks Afebrile overnight. Patient resting in bed in nad. About to go down for bone marrow biopsy. No complaints. Objective Data Date Time Temp Pulse Resp B/P (MAP) Pulse Ox O2 Delivery O2 Flow Rate FiO2 10/19/17 04:00 98.0 100 16 126/85 (99) 97 10/19/17 00:00 98.0 90 18 139/69 (92) 95 10/18/17 20:45 98.2 71 16 132/85 (101) 100 10/18/17 16:50 98.8 71 18 118/75 (89) 100 10/18/17 12:30 98.0 70 18 122/68 (86) 100 10/19/17 10/19/17 10/19/17 07:00 15:00 23:00 Intake Total 480 ml Output Total 600 ml Balance -120 ml Result Diagram: 10/18/17 1031 10/17/17 0250 Laboratory Results Laboratory Tests Test 10/18/17 10:31 10/18/17 21:20 White Blood Count 1.6 TH/MM3 Red Blood Count 2.84 MIL/MM3 Hemoglobin 8.8 GM/DL Hematocrit 27.4 % Mean Corpuscular Volume 96.6 FL Mean Corpuscular Hemoglobin 30.9 PG Mean Corpuscular Hemoglobin Concent 32.0 % Red Cell Distribution Width 14.7 % Platelet Count 115 TH/MM3 Mean Platelet Volume 9.1 FL Neutrophils (%) (Auto) 17.5 % Lymphocytes (%) (Auto) 31.7 % Monocytes (%) (Auto) 22.2 % Eosinophils (%) (Auto) 28.2 % Basophils (%) (Auto) 0.4 % Neutrophils # (Auto) 0.3 TH/MM3 Lymphocytes # (Auto) 0.5 TH/MM3 Monocytes # (Auto) 0.3 TH/MM3 Eosinophils # (Auto) 0.4 TH/MM3 Basophils # (Auto) 0.0 TH/MM3 CBC Comment AUTO DIFF Differential Total Cells Counted 100 Neutrophils % (Manual) 14 % Band Neutrophils % 1 % Lymphocytes % 43 % Monocytes % 22 % Eosinophils % 20 % Neutrophils # (Manual) 0.2 TH/MM3 Differential Comment FINAL DIFF MANUAL Platelet Estimate LOW Platelet Morphology Comment NORMAL Ovalocytes 1+ Vancomycin Level Trough 11.1 MCG/ML Imaging Studies Last Impressions Abdomen X-Ray 1/28/18 1400 Signed Impressions: Service Date/Time: Wednesday, October 18, 2017 14:39 - CONCLUSION: Nonspecific bowel gas pattern. Sarmad Landers MD Chest X-Ray 10/18/17 0600 Signed Impressions: Service Date/Time: Wednesday, October 18, 2017 02:27 - CONCLUSION: Mild consolidation or atelectasis at the inferior right upper lobe abutting the minor fissure. Jose Dean MD Chest CT 10/15/17 0000 Signed Impressions: Service Date/Time: Monday, October 16, 2017 00:50 - CONCLUSION: Focal consolidation or atelectasis at the inferior right upper lobe and at the medial right lower lobe. Areas of pneumonia should be considered. There is a mildly prominent right hilar lymph node. Jose Dean MD Abdomen/Pelvis CT 10/15/17 0000 Signed Impressions: Service Date/Time: Monday, October 16, 2017 00:48 - CONCLUSION: No acute abnormality is seen in the abdomen and pelvis. Jose Dean MD Administered Medications Medications (Trade) Dose Ordered Sig/Braulio Route PRN Reason Start Time Stop Time Status Last Admin Dose Admin Sodium Chloride 1,000 ml @ 100 mls/hr Q10H IV 10/13/17 15:56 10/17/17 17:49 Sodium Chloride (NS Flush) 2 ml BID IV FLUSH 10/13/17 21:00 10/16/17 11:11 Lactobacillus Acidophilus (Lactinex Pkt) 1 gm QID PO 10/13/17 18:00 10/17/17 18:31 Senna/Docusate Sodium (America-Colace) 1 tab BID PO 10/13/17 21:00 10/18/17 09:55 Fluconazole (Diflucan) 200 mg DAILY PO 10/14/17 09:00 10/18/17 09:55 Ceftriaxone Sodium 1000 mg/ Sodium Chloride 100 ml @ 200 mls/hr Q24H IV 10/14/17 17:00 10/18/17 17:00 Azithromycin 250 mg/Sodium Chloride 250 ml @ 250 mls/hr Q24H IV 10/14/17 18:00 10/18/17 21:12 Polyethylene Glycol (Miralax) 17 gm DAILY PO 10/15/17 15:30 10/18/17 09:55 Famotidine (Pepcid) 20 mg BID PO 10/16/17 12:00 10/18/17 21:13 Diphenhydramine HCl (Benadryl) 50 mg HS PRN PO itching 10/17/17 17:00 10/18/17 21:13 Witch Alejandra/ Glycerin (Tucks Pads) 1 applic UNSCH PRN TOPICAL rectal discomfort/irritation 10/19/17 02:30 10/19/17 02:31 Objective Remarks GENERAL: Pleasant middle aged male, upright in bed in nad SKIN: Warm and dry. HEAD: Normocephalic. EYES: No injection or drainage. NECK: Supple, trachea midline. LYMPHATIC: +cervical adenopathy CARDIOVASCULAR: Regular rate and rhythm RESPIRATORY: Breath sounds equal bilaterally. No accessory muscle use. GASTROINTESTINAL: Abdomen soft, non-tender, nondistended. EXTREMITIES: No cyanosis NEUROLOGICAL: awake and alert, normal speech. moving all extremities. Assessment/Plan Problem List: (1) Burkitt lymphoma ICD Codes: C83.70 - Burkitt lymphoma, unspecified site Status: Acute Plan: 10/19: bone marrow biopsy in IR today. monitor blood counts. --diagnosed in 2013 (had HIV at time of diagnosis) --treated at [facility] with high-dose chemotherapy including intrathecal chemotherapy injections. --last systemic chemotherapy dose was in October 2014 and he reports having been in remission ever since. (2) Fever and neutropenia ICD Codes: D70.9 - Neutropenia, unspecified; R50.81 - Fever presenting with conditions classified elsewhere Plan: --one BC + Staph capitis --on Rocephin + Zithromax --ID following. Assessment 42 y/o male with history of HIV and Burkitt's lymphoma admitted with shortness of breath found to have pneumonia and pancytopenia Attending Statement The exam, history, and the medical decision-making described in the above note were completed with the assistance of the mid-level provider. I reviewed and agree with the findings presented. I attest that I had a [id number] encounter with the patient on the same day, and personally performed and documented my assessment and findings in the medical record. wants to go home Mom at bedside. some discomfort at BMbx site. s/p BM bx . Result pending Ok to d/c home Fu at office in 2 weeks. D/W pt and mom. Nuvia Rosales Oct 19, 2017 09:49 Jeni Owen MD Oct 19, 2017 18:25
[2017-10-19 10:06] LABS: AUTOMATED NEUTROPHIL # 0.3 TH/MM3 (1.8-7.7); BASOPHIL % 0.4 % (0.0-2.0); EOSINOPHIL # 0.5 TH/MM3 (0-0.4); EOSINOPHIL % 34.5 % (0.0-4.0); HEMATOCRIT 28.7 % (39.0-51.0); HEMOGLOBIN 9.4 GM/DL (13.0-17.0); LYMPH % 25.3 % (9.0-44.0); LYMPHOCYTE # 0.4 TH/MM3 (1.0-4.8); MEAN CELL VOLUME 95.9 FL (80.0-100.0); MEAN CORPUSCULAR HEMOGLOBIN 31.3 PG (27.0-34.0); MEAN CORPUSCULAR HGB CONC 32.7 % (32.0-36.0); MEAN PLATELET VOLUME 9.1 FL (7.0-11.0); MONO % 20.3 % (0.0-8.0); MONOCYTE # 0.3 TH/MM3 (0-0.9); NEUT % 19.5 % (16.0-70.0); PLATELET COUNT 113 TH/MM3 (150-450); RED BLOOD COUNT 2.99 MIL/MM3 (4.50-5.90); RED CELL DISTRIBUTION WIDTH 14.5 % (11.6-17.2); WHITE BLOOD COUNT 1.6 TH/MM3 (4.0-11.0)
--- NOTE | 2017-10-19 10:28 | PD.RAD ---
Post CT Procedure Prog Note Pre Procedure Diagnosis: (1) Burkitt lymphoma Post Procedure Diagnosis: Procedure Date: Oct 19, 2017 Supervising Radiologist: Edward Santiago Proceduralist/Assist: renata hernandez Anesthesia: Conscious Sedation Plan of Activity Patient to Unit: ROPU Patient Condition: Good See PACS Report for procedural detail/treatment Edward Santiago MD Oct 19, 2017 10:28
[2017-10-19 11:01] LABS: BASOPHILS 1 % (0-2); LYMPHOCYTES 26 % (9-44); MONOCYTES 18 % (0-8); POLYS (SEG NEUTROPHILS) 32 % (16-70)
[2017-10-19 11:02] LABS: NEUTROPHIL # MANUAL DIFF 0.5 TH/MM3 (1.8-7.7); OVALOCYTES 1+ (NORMAL)
[2017-10-19] MEDS: FLUCONAZOLE 100 MG TAB PO SCH (14:04)
--- NOTE | 2017-10-19 15:14 | HHI.IDPN ---
Subjective Subjective Remarks remains neutropenic CD4 counts low - 29 Antibiotics azithro CFTX fluconazole vanco Allergies: Coded Allergies: albuterol (Verified Allergy, Intermediate, Hives, 10/13/17) shortness of breath Objective . Vital Signs Date Time Temp Pulse Resp B/P (MAP) Pulse Ox O2 Delivery O2 Flow Rate FiO2 10/19/17 12:33 97.6 61 16 130/94 (106) 100 10/19/17 11:20 54 16 128/92 (104) 99 10/19/17 10:50 56 18 125/78 (94) 97 10/19/17 10:35 97.6 59 18 118/77 (91) 92 10/19/17 08:53 98.0 65 16 125/81 (96) 99 10/19/17 04:00 98.0 100 16 126/85 (99) 97 10/19/17 00:00 98.0 90 18 139/69 (92) 95 10/18/17 20:45 98.2 71 16 132/85 (101) 100 10/18/17 16:50 98.8 71 18 118/75 (89) 100 10/19/17 10/19/17 10/20/17 15:00 23:00 07:00 Output Total 350 ml Balance -350 ml Output Urine Total 350 ml . Laboratory Tests Test 10/18/17 10:31 10/19/17 09:15 White Blood Count 1.6 TH/MM3 1.6 TH/MM3 Red Blood Count 2.84 MIL/MM3 2.99 MIL/MM3 Hemoglobin 8.8 GM/DL 9.4 GM/DL Hematocrit 27.4 % 28.7 % Mean Corpuscular Volume 96.6 FL 95.9 FL Mean Corpuscular Hemoglobin 30.9 PG 31.3 PG Mean Corpuscular Hemoglobin Concent 32.0 % 32.7 % Red Cell Distribution Width 14.7 % 14.5 % Platelet Count 115 TH/MM3 113 TH/MM3 Mean Platelet Volume 9.1 FL 9.1 FL Neutrophils (%) (Auto) 17.5 % 19.5 % Lymphocytes (%) (Auto) 31.7 % 25.3 % Monocytes (%) (Auto) 22.2 % 20.3 % Eosinophils (%) (Auto) 28.2 % 34.5 % Basophils (%) (Auto) 0.4 % 0.4 % Neutrophils # (Auto) 0.3 TH/MM3 0.3 TH/MM3 Lymphocytes # (Auto) 0.5 TH/MM3 0.4 TH/MM3 Monocytes # (Auto) 0.3 TH/MM3 0.3 TH/MM3 Eosinophils # (Auto) 0.4 TH/MM3 0.5 TH/MM3 Basophils # (Auto) 0.0 TH/MM3 0.0 TH/MM3 CBC Comment AUTO DIFF AUTO DIFF Differential Total Cells Counted 100 100 Neutrophils % (Manual) 14 % 32 % Band Neutrophils % 1 % Lymphocytes % 43 % 26 % Monocytes % 22 % 18 % Eosinophils % 20 % 23 % Neutrophils # (Manual) 0.2 TH/MM3 0.5 TH/MM3 Differential Comment FINAL DIFF MANUAL FINAL DIFF MANUAL Platelet Estimate LOW LOW Platelet Morphology Comment NORMAL NORMAL Ovalocytes 1+ 1+ Basophils % 1 % Imaging Last Impressions Abdomen X-Ray 10/18/17 1400 Signed Impressions: Service Date/Time: Wednesday, October 18, 2017 14:39 - CONCLUSION: Nonspecific bowel gas pattern. Sarmad Landers MD Chest X-Ray 10/18/17 0600 Signed Impressions: Service Date/Time: Wednesday, October 18, 2017 02:27 - CONCLUSION: Mild consolidation or atelectasis at the inferior right upper lobe abutting the minor fissure. Jose Dean MD Chest CT 10/15/17 0000 Signed Impressions: Service Date/Time: Monday, October 16, 2017 00:50 - CONCLUSION: Focal consolidation or atelectasis at the inferior right upper lobe and at the medial right lower lobe. Areas of pneumonia should be considered. There is a mildly prominent right hilar lymph node. Jose Dean MD Abdomen/Pelvis CT 10/15/17 0000 Signed Impressions: Service Date/Time: Monday, October 16, 2017 00:48 - CONCLUSION: No acute abnormality is seen in the abdomen and pelvis. Jose Dean MD Physical Exam CONSTITUTIONAL/GENERAL: This is an adequately nourished patient, in no apparent distress. TUBES/LINES/DRAINS: SKIN: No jaundice, + scaly rash on face scalp cw seborreic dermatitis Skin temperature appropriate. Not diaphoretic. CARDIOVASCULAR: Regular rate and rhythm without murmurs, gallops, or rubs. No JVD. Peripheral pulses symmetric. RESPIRATORY/CHEST: Symmetric, unlabored respirations. Clear to auscultation. Breath sounds equal bilaterally. No wheezes, rales, or rhonchi. GASTROINTESTINAL: Abdomen soft, mildly tender diffusely , nondistended. No hepato-splenomegaly, or palpable masses. No guarding. Bowel sounds present. GENITOURINARY: Without palpable bladder distension. MUSCULOSKELETAL: Extremities without clubbing, cyanosis, or edema. No joint tenderness or effusion noted. No calf tenderness. No mottling or clubbing. NEUROLOGICAL: Awake and alert. Motor and sensory grossly within normal limits. Follows commands. Cognitively sharp. Moves all extremities. Assessment & Plan Remarks HIV dz. CD4 unknown On HAART - non compliant PNA - resolving clinically on current abx Constipation, abd pain - colonoscopy planned Neutropenia, with ANC< 500: hematological malignancy vs infx. Hem/onc consulted ? MAC CMV negative h/o Burkitt's lymphoma - hem/onc ff. CT C/A/P not sugg of lymphoma Low grade coag neg staph bacteremia - doubt clin significance - fu CD4 count and VL - fu MAC clx monitor neutrophils agree with plan for bone marrow bx will need to have PCP and MAC profilaxis started Amalia King MD Oct 19, 2017 15:14
--- NOTE | 2017-10-19 15:58 | RADRPT ---
EXAM DATE/TIME: 10/19/2017 09:59 [place] COMPARISON: No previous studies available for comparison. INDICATIONS : Pancytopenia. SEDATION TIME: 30 minutes BIOPSY SITE: Right ilac wing MEDICATION(S): 1.) 3.5 mg midazolam (Versed) IV 2.) 150 mcg fentanyl (Sublimaze) IV DEVICE(S): 1.) 11 gauge Bone marrow biopsy needle MEDICAL HISTORY : HIV. Lymphoma. SURGICAL HISTORY : None. ENCOUNTER: Initial ACUITY: 1 day PAIN SCORE: 0/10 LOCATION: Bilateral pelvis A total of one core specimen(s) were obtained and sent to the laboratory for pathologic evaluation. PROCEDURE: 1. CT guided bone marrow biopsy. 2. Conscious sedation with continuous EKG and oximetry monitoring. 3. EKG and oximetry remained stable throughout the procedure. Prior to the procedure informed consent was obtained. Any appropriate prior imaging studies were rev iewed. Using automated exposure control and adjustment of the mA and/or kV according to patient size , radiation dose was kept as low as reasonably achievable to obtain optimal diagnostic quality images . DICOM format image data is available electronically for review and comparison. The site was prepped in a sterile fashion. Full sterile technique was used, including cap, mask, avni rile gloves and gown and a large sterile sheet. Hand hygiene and 2% chlorhexidine and/or betadine/al cohol prep was utilized per protocol for cutaneous antisepsis. The skin and subcutaneous tissues wer e infiltrated with local anesthetic solution. With CT guidance the previously identified target was localized. Biopsy was performed using the presc ribed needle as above. Following biopsy marrow aspiration was performed with repeat puncture. Adequa te hemostasis was obtained with compression at the puncture site. Follow-up CT scan reveals no hemorrhage. Conscious sedation was performed with the prescribed dosages and duration as above in the presence of an independent trained radiology nurse to assist in the monitoring of the patient. EKG and oximetry remained stable throughout the procedure. The patient tolerated the procedure well and there were no complications. The patient was sent to Radiology Outpatient Unit in stable condition. CONCLUSION: 1. Uncomplicated CT guided bone marrow aspirate. 2. Uncomplicated CT guided bone marrow biopsy. Edward Santiago MD on October 19, 2017 at 15:56 Board Certified Radiologist. This report was verified electronically.
[2017-10-19] MEDS ORDERED: AZITHROMYCIN 600 MG TAB PO SCH (17:00)
[2017-10-19] MEDS: diphenhydrAMINE HCL 50 MG CAP PO PRN (20:49)
[2017-10-20] VITALS (14 sets, daily range): BP systolic 110–131; BP diastolic 63–93; PULSE 65–140; RESP 16; TEMP 97.4–98.6; O2SAT 98–100
[2017-10-20] MEDS: SODIUM CHLOR 0.9% 1000 ML INJ 1,000 ML IV SCH (04:39)
[2017-10-20] MEDS ORDERED: SULFAMETHOXAZOLE-TRIMETHOPRIM DS 800-160 MG TAB PO SCH (09:00)
[2017-10-20] MEDS: LACTOBACILLUS ACIDOPHILUS 1 GM PACKET PO SCH ×2 (09:00→13:00)
[2017-10-20] MEDS: DOCUSATE SODIUM 50 MG/SENNA 8.6 MG TAB PO SCH (09:00)
[2017-10-20] MEDS: POLYETHYLENE GLYCOL 17 GM PKG PO SCH (09:00)
[2017-10-20] MEDS: FLUCONAZOLE 100 MG TAB PO SCH (09:22)
[2017-10-20] MEDS: SODIUM CHLORIDE 0.9% FLUSH 10 ML FLUSH IV FLUSH SCH (09:22)
[2017-10-20] MEDS: FAMOTIDINE 20 MG TAB PO SCH (09:22)
--- NOTE | 2017-10-20 09:59 | PD.ONC.PN ---
Subjective Subjective Remarks Afebrile overnight. Patient resting in bed in nad. Wants to know when he can go home. Overnight developed a rash on his forehead. He thinks it may have been related to the Zithromax. He took a benadryl last night, but states the rash is still present on his forehead and left forearm. No throat swelling or difficulty breathing. Objective Data Date Time Temp Pulse Resp B/P (MAP) Pulse Ox O2 Delivery O2 Flow Rate FiO2 10/20/17 07:03 92 10/20/17 06:03 65 10/20/17 05:05 68 10/20/17 04:16 98.0 79 16 110/65 (80) 98 10/20/17 04:02 90 10/20/17 03:09 70 10/20/17 02:02 81 10/20/17 01:34 71 10/20/17 01:31 140 10/20/17 01:06 74 10/20/17 00:32 98.6 76 16 113/63 (80) 99 10/20/17 00:02 79 10/19/17 21:06 74 10/19/17 20:43 98.0 71 16 140/81 (100) 99 10/19/17 19:55 72 10/19/17 19:04 73 10/19/17 16:57 98.4 64 16 119/75 (90) 100 10/19/17 12:33 97.6 61 16 130/94 (106) 100 10/19/17 11:20 54 16 128/92 (104) 99 10/19/17 10:50 56 18 125/78 (94) 97 10/19/17 10:35 97.6 59 18 118/77 (91) 92 10/20/17 10/20/17 10/20/17 07:00 15:00 23:00 Intake Total 400 ml Balance 400 ml Result Diagram: 10/19/17 0915 10/17/17 0250 Laboratory Results Laboratory Tests Test 10/19/17 10:15 Administered Medications Medications (Trade) Dose Ordered Sig/Braulio Route PRN Reason Start Time Stop Time Status Last Admin Dose Admin Sodium Chloride 1,000 ml @ 100 mls/hr Q10H IV 10/13/17 15:56 10/17/17 17:49 Sodium Chloride (NS Flush) 2 ml BID IV FLUSH 10/13/17 21:00 10/20/17 09:22 Lactobacillus Acidophilus (Lactinex Pkt) 1 gm QID PO 10/13/17 18:00 10/17/17 18:31 Senna/Docusate Sodium ([place]-Colace) 1 tab BID PO 10/13/17 21:00 10/18/17 09:55 Fluconazole (Diflucan) 200 mg DAILY PO 10/14/17 09:00 10/20/17 09:22 Polyethylene Glycol (Miralax) 17 gm DAILY PO 10/15/17 15:30 10/18/17 09:55 Famotidine (Pepcid) 20 mg BID PO 10/16/17 12:00 10/20/17 09:22 Diphenhydramine HCl (Benadryl) 50 mg HS PRN PO itching 10/17/17 17:00 10/19/17 20:49 Witch Alejandra/ Glycerin (Tucks Pads) 1 applic UNSCH PRN TOPICAL rectal discomfort/irritation 10/19/17 02:30 10/19/17 02:31 Azithromycin (Zithromax) 1,200 mg Q7D PO 10/19/17 17:00 10/19/17 18:31 Trimethoprim/ Sulfamethoxazole (Bactrim Ds 800-160 Mg) 1 tab DAILY PO 10/20/17 09:00 10/20/17 09:22 Objective Remarks GENERAL: Middle aged male, lying in bed in nad SKIN: Warm and dry. +eczema on face and extremities. a few flesh colored 1-3mm papules noted on forehead and left forearm. no welts or hives noted. HEAD: Normocephalic. EYES: No injection or drainage. NECK: Supple, trachea midline. LYMPHATIC: +cervical adenopathy CARDIOVASCULAR: Regular rate and rhythm RESPIRATORY: Breath sounds equal bilaterally. No accessory muscle use. GASTROINTESTINAL: Abdomen soft, non-tender, nondistended. EXTREMITIES: No cyanosis NEUROLOGICAL: awake and alert, normal speech. moving all extremities. 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 follow up in clinic once discharged --diagnosed in 2013 (had HIV at time of diagnosis) --treated at [facility] with high-dose chemotherapy including intrathecal chemotherapy injections. --last systemic chemotherapy dose was in October 2014 and he reports having been in remission ever since. (2) Fever and neutropenia ICD Codes: D70.9 - Neutropenia, unspecified; R50.81 - Fever presenting with conditions classified elsewhere Plan: --one BC + Staph capitis, all other blood cultures negative. --on Diflucan, Bactrim and Zithromax --ID following. Assessment 42 y/o male with history of HIV and Burkitt's lymphoma admitted with shortness of breath found to have pneumonia and pancytopenia Attending Statement The exam, history, and the medical decision-making described in the above note were completed with the assistance of the mid-level provider. I reviewed and agree with the findings presented. I attest that I had a [id number] encounter with the patient on the same day, and personally performed and documented my assessment and findings in the medical record. No new c/o wants to go home. BM bx result pending. Ok to d/c FU as outpt Nuvia Rosales Oct 20, 2017 09:59 Jeni Owen MD Oct 20, 2017 23:08
[2017-10-20 11:01] LABS: AUTOMATED NEUTROPHIL # 0.4 TH/MM3 (1.8-7.7); BASOPHIL % 0.4 % (0.0-2.0); EOSINOPHIL # 0.5 TH/MM3 (0-0.4); EOSINOPHIL % 32.1 % (0.0-4.0); HEMATOCRIT 27.6 % (39.0-51.0); HEMOGLOBIN 9.2 GM/DL (13.0-17.0); LYMPH % 25.3 % (9.0-44.0); LYMPHOCYTE # 0.4 TH/MM3 (1.0-4.8); MEAN CELL VOLUME 96.1 FL (80.0-100.0); MEAN CORPUSCULAR HGB CONC 33.3 % (32.0-36.0); MONO % 18.5 % (0.0-8.0); MONOCYTE # 0.3 TH/MM3 (0-0.9); NEUT % 23.7 % (16.0-70.0); PLATELET COUNT 121 TH/MM3 (150-450); RED BLOOD COUNT 2.87 MIL/MM3 (4.50-5.90); RED CELL DISTRIBUTION WIDTH 14.5 % (11.6-17.2); WHITE BLOOD COUNT 1.6 TH/MM3 (4.0-11.0)
[2017-10-20 12:01] LABS: BANDS 3 % (0-6); LYMPHOCYTES 28 % (9-44); MONOCYTES 18 % (0-8); NEUTROPHIL # MANUAL DIFF 0.4 TH/MM3 (1.8-7.7); POLYS (SEG NEUTROPHILS) 21 % (16-70)
[2017-10-20 12:04] LABS: OVALOCYTES 1+ (NORMAL)
--- NOTE | 2017-10-20 12:31 | HHI.IDPN ---
Subjective Subjective Remarks [facility] HIV AIDS, with high viral load. Concern for ADAMARIS as cause for Pancytopenia. Overnight events reviewed. No fevers. Has a rash on his face but mother and pt both report this is a chronic rash that comes and goes. Remains neutropenic CD4 counts low - 29 Antibiotics azithro fluconazole bactrim Lines Line sites with no e.o infection Past Medical History reviewed Allergies: Coded Allergies: albuterol (Verified Allergy, Intermediate, Hives, 10/13/17) shortness of breath Objective . Vital Signs Date Time Temp Pulse Resp B/P (MAP) Pulse Ox O2 Delivery O2 Flow Rate FiO2 10/20/17 09:15 98.0 67 16 125/93 (104) 100 10/20/17 07:03 92 10/20/17 06:03 65 10/20/17 05:05 68 10/20/17 04:16 98.0 79 16 110/65 (80) 98 10/20/17 04:02 90 10/20/17 03:09 70 10/20/17 02:02 81 10/20/17 01:34 71 10/20/17 01:31 140 10/20/17 01:06 74 10/20/17 00:32 98.6 76 16 113/63 (80) 99 10/20/17 00:02 79 10/19/17 21:06 74 10/19/17 20:43 98.0 71 16 140/81 (100) 99 10/19/17 19:55 72 10/19/17 19:04 73 10/19/17 16:57 98.4 64 16 119/75 (90) 100 10/19/17 12:33 97.6 61 16 130/94 (106) 100 . Laboratory Tests Test 10/19/17 09:15 10/20/17 10:45 White Blood Count 1.6 TH/MM3 1.6 TH/MM3 Red Blood Count 2.99 MIL/MM3 2.87 MIL/MM3 Hemoglobin 9.4 GM/DL 9.2 GM/DL Hematocrit 28.7 % 27.6 % Mean Corpuscular Volume 95.9 FL 96.1 FL Mean Corpuscular Hemoglobin 31.3 PG 32.0 PG Mean Corpuscular Hemoglobin Concent 32.7 % 33.3 % Red Cell Distribution Width 14.5 % 14.5 % Platelet Count 113 TH/MM3 121 TH/MM3 Mean Platelet Volume 9.1 FL 9.0 FL Neutrophils (%) (Auto) 19.5 % 23.7 % Lymphocytes (%) (Auto) 25.3 % 25.3 % Monocytes (%) (Auto) 20.3 % 18.5 % Eosinophils (%) (Auto) 34.5 % 32.1 % Basophils (%) (Auto) 0.4 % 0.4 % Neutrophils # (Auto) 0.3 TH/MM3 0.4 TH/MM3 Lymphocytes # (Auto) 0.4 TH/MM3 0.4 TH/MM3 Monocytes # (Auto) 0.3 TH/MM3 0.3 TH/MM3 Eosinophils # (Auto) 0.5 TH/MM3 0.5 TH/MM3 Basophils # (Auto) 0.0 TH/MM3 0.0 TH/MM3 CBC Comment AUTO DIFF AUTO DIFF Differential Total Cells Counted 100 100 Neutrophils % (Manual) 32 % 21 % Lymphocytes % 26 % 28 % Monocytes % 18 % 18 % Eosinophils % 23 % 30 % Basophils % 1 % Neutrophils # (Manual) 0.5 TH/MM3 0.4 TH/MM3 Differential Comment FINAL DIFF MANUAL FINAL DIFF MANUAL Platelet Estimate LOW LOW Platelet Morphology Comment NORMAL NORMAL Ovalocytes 1+ 1+ Band Neutrophils % 3 % Imaging Last Impressions Abdomen X-Ray 10/18/17 1400 Signed Impressions: Service Date/Time: Wednesday, October 18, 2017 14:39 - CONCLUSION: Nonspecific bowel gas pattern. Sarmad Landers MD Chest X-Ray 10/18/17 0600 Signed Impressions: Service Date/Time: Wednesday, October 18, 2017 02:27 - CONCLUSION: Mild consolidation or atelectasis at the inferior right upper lobe abutting the minor fissure. Jose Dean MD Chest CT 10/15/17 0000 Signed Impressions: Service Date/Time: Monday, October 16, 2017 00:50 - CONCLUSION: Focal consolidation or atelectasis at the inferior right upper lobe and at the medial right lower lobe. Areas of pneumonia should be considered. There is a mildly prominent right hilar lymph node. Jose Dean MD Abdomen/Pelvis CT 10/15/17 0000 Signed Impressions: Service Date/Time: Monday, October 16, 2017 00:48 - CONCLUSION: No acute abnormality is seen in the abdomen and pelvis. Jose Dean MD Physical Exam CONSTITUTIONAL/GENERAL: This is an adequately nourished patient, in no apparent distress. TUBES/LINES/DRAINS: SKIN: No jaundice, + scaly rash on face scalp cw seborreic dermatitis Skin temperature appropriate. Not diaphoretic. CARDIOVASCULAR: Regular rate and rhythm without murmurs, gallops, or rubs. No JVD. Peripheral pulses symmetric. RESPIRATORY/CHEST: Symmetric, unlabored respirations. Clear to auscultation. Breath sounds equal bilaterally. No wheezes, rales, or rhonchi. GASTROINTESTINAL: Abdomen soft, mildly tender diffusely , nondistended. No hepato-splenomegaly, or palpable masses. No guarding. Bowel sounds present. GENITOURINARY: Without palpable bladder distension. MUSCULOSKELETAL: Extremities without clubbing, cyanosis, or edema. No joint tenderness or effusion noted. No calf tenderness. No mottling or clubbing. NEUROLOGICAL: Awake and alert. Motor and sensory grossly within normal limits. Follows commands. Cognitively sharp. Moves all extremities. Psych cooperative IV line sites with no e.o infection Assessment & Plan Remarks Advanced HIV dz. CD4 unknown On HAART - reportedly non compliant per notes. PNA - resolving clinically on current abx Constipation, abd pain - colonoscopy planned Neutropenia, with ANC< 500: hematological malignancy vs infx. Hem/onc consulted ? MAC CMV negative h/o Burkitt's lymphoma - hem/onc ff. CT C/A/P not sugg of lymphoma Low grade coag neg staph bacteremia - doubt clin significance Recs: d/w she recommends waiting for BM biopsy path. d/w pathology who will get back to me in 1-2 hours with report. This report will help decide if patient has AFB or fungal pathology as a reason for pancytopenia or if this is advanced HIV disease related pancytopenia. Patient insisted on being discharged. I discussed above with patient and mom as decision making tools and they agreed to wait it out. I explained to patient that if AFB is positive I will have to start 3-4 drug regimen for ADAMARIS. He was not happy with the pill burden of existing 7 drug regimen. His mom and I reiterated importance of compliance with medications. d/w patient and Mom importance of compliance with medications as well as compliance with follow up visits with Dr.Rizicki MONTANEZ HIV doc in community. this discussion was behind closed doors in his moms presence to respect patient privacy. Patient reported to me his Mom knows about his HIV status and ok to discuss in her presence. Continue Bactrim change to M,W,F, regimen HAART per reportedly his regimen was just changed as outpatient. Explained to him when he and Mom questioned that HAART can cause marrow suppression so it may be better to hold off on those meds for now till pancytopenia sorted out. Await BM path reports to decide discharge regimen. wing RN. Time spent in excess of 40 mins. Addendum: d.vlad Agee: BM aspirate specimen not sufficient. He will need another day or two for AFB stain on BM biopsy. d.w : Bactrim PCP prophylaxis. Diflucan for 2 wks. Azithro once a week. Follow up with Dr.Rizicki MONTANEZ/HIV clinic. d/w to change scripts for PCP dose of 1 tab po Mon,Wed, Fri. Will sign off please call back if any change in clinical condition or plans. Promise Davies MD Oct 20, 2017 12:31
--- NOTE | 2017-10-20 13:20 | HHI.DS ---
Discharge Summary Admission Date Oct 14, 2017 at 11:02 Discharge Date: Oct 20, 2017 Admitting Diagnosis RUL PNA (1) Right upper lobe pneumonia ICD Code: J18.1 - Lobar pneumonia, unspecified organism Diagnosis: Principal (2) HIV disease ICD Code: B20 - Human immunodeficiency virus [HIV] disease Status: Acute (3) Burkitt lymphoma ICD Code: C83.70 - Burkitt lymphoma, unspecified site Status: Acute (4) Dara esophagitis ICD Code: B37.81 - Candidal esophagitis Status: Acute Procedures EGD and cscope status post bone marrow biopsy 10/19/17 Brief History - From Admission 42-year-old male presented to the ED today with complaints of aches, fevers, chills, cough, nausea, and constipation. She has a past medical history of HIV, Burkitt's lymphoma, and chronic dry eyes. She reports that he was in [place] out the snow around the third or fifth of this month. And he returned back to [place] around the or sixth he began experiencing headaches, nausea, vomiting, constipation, cough, fevers, chills. She states that [facility] and started on HIV medications and antibiotics around the 27 of September. He feels as though he was sick by the time he was in to follow with HIV doctor. He reports nausea, with some vomiting when eating large meals. He states that he has been able to keep foods and fluids down as long as he eats small meals at a time. He complains of constipation, repots his last BM or of this month. He endorses abdominal pain, reports not passing gas, repots painful BM due to hemorrhoids. He repots spots of blood with his last BM, denies robert red bleeding or black stools. Repots cough that is productive, yellow in color, SOB at rest and on exertion. He reports feeling like his chest is "closing in". Endorses night sweats for the past week, fevers and chills for the past two weeks. Endorses chest pain when he coughs, and takes a deep breath. He repots lack of appetite and nausea. He has been experiencing along with some dizziness for which she has been taking Tylenol at home. Reports headaches as his usual headaches which he has experienced in the past, and denies any visual changes or weakness. He denies any trouble swallowing, chocking, or coughing. His been able to eat regular foods and regular consistency liquids liver has been having small meals at a time due to nausea and vomiting. He states he has been unable to keep medications down due to ongoing nausea and vomiting. CBC/BMP: 10/20/17 1045 10/17/17 0250 Significant Findings Laboratory Tests Test 10/18/17 10:31 10/18/17 21:20 10/19/17 09:15 10/19/17 10:15 White Blood Count 1.6 TH/MM3 (4.0-11.0) 1.6 TH/MM3 (4.0-11.0) Red Blood Count 2.84 MIL/MM3 (4.50-5.90) 2.99 MIL/MM3 (4.50-5.90) Hemoglobin 8.8 GM/DL (13.0-17.0) 9.4 GM/DL (13.0-17.0) Hematocrit 27.4 % (39.0-51.0) 28.7 % (39.0-51.0) Platelet Count 115 TH/MM3 (150-450) 113 TH/MM3 (150-450) Monocytes (%) (Auto) 22.2 % (0.0-8.0) 20.3 % (0.0-8.0) Eosinophils (%) (Auto) 28.2 % (0.0-4.0) 34.5 % (0.0-4.0) Neutrophils # (Auto) 0.3 TH/MM3 (1.8-7.7) 0.3 TH/MM3 (1.8-7.7) Lymphocytes # (Auto) 0.5 TH/MM3 (1.0-4.8) 0.4 TH/MM3 (1.0-4.8) Neutrophils % (Manual) 14 % (16-70) Monocytes % 22 % (0-8) 18 % (0-8) Eosinophils % 20 % (0-4) 23 % (0-4) Neutrophils # (Manual) 0.2 TH/MM3 (1.8-7.7) 0.5 TH/MM3 (1.8-7.7) Platelet Estimate LOW (NORMAL) LOW (NORMAL) Ovalocytes 1+ (NORMAL) 1+ (NORMAL) Vancomycin Level Trough 11.1 MCG/ML (5.0-10.0) Eosinophils # (Auto) 0.5 TH/MM3 (0-0.4) Test 10/20/17 10:45 White Blood Count 1.6 TH/MM3 (4.0-11.0) Red Blood Count 2.87 MIL/MM3 (4.50-5.90) Hemoglobin 9.2 GM/DL (13.0-17.0) Hematocrit 27.6 % (39.0-51.0) Platelet Count 121 TH/MM3 (150-450) Monocytes (%) (Auto) 18.5 % (0.0-8.0) Eosinophils (%) (Auto) 32.1 % (0.0-4.0) Neutrophils # (Auto) 0.4 TH/MM3 (1.8-7.7) Lymphocytes # (Auto) 0.4 TH/MM3 (1.0-4.8) Eosinophils # (Auto) 0.5 TH/MM3 (0-0.4) Monocytes % 18 % (0-8) Eosinophils % 30 % (0-4) Neutrophils # (Manual) 0.4 TH/MM3 (1.8-7.7) Platelet Estimate LOW (NORMAL) Ovalocytes 1+ (NORMAL) Imaging Last Impressions Bone Biopsy CT 10/19/17 0000 Signed Impressions: Service Date/Time: Thursday, October 19, 2017 09:59 - CONCLUSION: 1. Uncomplicated CT guided bone marrow aspirate. 2. Uncomplicated CT guided bone marrow biopsy. Edward Santiago MD Abdomen X-Ray 10/18/17 1400 Signed Impressions: Service Date/Time: Wednesday, October 18, 2017 14:39 - CONCLUSION: Nonspecific bowel gas pattern. Sarmad Landers MD Chest X-Ray 10/18/17 0600 Signed Impressions: Service Date/Time: Wednesday, October 18, 2017 02:27 - CONCLUSION: Mild consolidation or atelectasis at the inferior right upper lobe abutting the minor fissure. Jose Dean MD Chest CT 10/15/17 0000 Signed Impressions: Service Date/Time: Monday, October 16, 2017 00:50 - CONCLUSION: Focal consolidation or atelectasis at the inferior right upper lobe and at the medial right lower lobe. Areas of pneumonia should be considered. There is a mildly prominent right hilar lymph node. Jose Dean MD Abdomen/Pelvis CT 10/15/17 0000 Signed Impressions: Service Date/Time: Monday, October 16, 2017 00:48 - CONCLUSION: No acute abnormality is seen in the abdomen and pelvis. Jose Dean MD PE at Discharge GENERAL: in NAD CARDIOVASCULAR: Regular rate and rhythm without murmurs, gallops, or rubs. RESPIRATORY: Breath sounds equal bilaterally. No accessory muscle use. GASTROINTESTINAL: Abdomen soft, non-tender, nondistended. MUSCULOSKELETAL: No cyanosis, or edema. BACK: Nontender without obvious deformity. No CVA tenderness. Pt update on day of discharge In [facility]. family at bedside,. No fever or chills no n/v/d/c. wants to go home. Hospital Course 42-year-old male who is HIV positive, unknown last CD4 count, history of Burkitt 's Lymphoma, neuropathy, and anemia presents to the ED with complaints of cough , SOB, fever, chills, nausea, and vomiting. Community acquired pneumonia Possibly aspiration pneumonia Staph capitis likely contamination -on Rocephin and Zithromax per ID. vancomycin was discontinued. Follow cultures. Management per infectious disease. Per : BM aspirate specimen not sufficient. He will need another day or two for AFB stain on BM biopsy. At [place] Bactrim PCP prophylaxis Mon/THU/THU, . Diflucan for 2 wks. Continue Azithro once a week. Follow up with ID/HIV clinic. Sepsis 2/2 above Pancytopenia with history of Burkitt's lymphoma. -Unsure etiology. Oncologist following. If patient continues to not improve , status post bone marrow biopsy 10/19/17 Nausea/vomiting. Resolved. Oral candidiasis Abdominal pain resolved. - EGD done on 10/16 showed mild esophagitis , continue Zantac - Will ct fluconazole 200 mg by mouth, oral hygiene -On heart healthy diet which was changed to regular diet. Constipation,acute -Rpt scope with incomplete prep -Ct bowel regimen, Miralax added DVT prophylaxis- SCDs, early ambulation Discharge Planning Patient can be discharged once infectious workup is completed and cleared by infectious disease. s/p bone marrow biopsy. Per : BM aspirate specimen not sufficient. He will need another day or two for AFB stain on BM biopsy. At [place] Bactrim PCP prophylaxis Thu/THU/THU, . Diflucan for 2 wks. Continue Azithro once a week. Follow up with ID/HIV clinic. Pt Condition on Discharge: Stable Discharge Disposition: Discharge Home Discharge Time: > 30 minutes Discharge Instructions DIET: Follow Instructions for: As Tolerated, No Restrictions Activities you can perform: Weight Bearing as Chai Follow up Referrals: Oncology - 1 Week PCP Follow-up - 2-3 Days New Medications: Fluconazole (Diflucan) 100 Mg Tab 200 MG PO DAILY for infection , #14 TAB Changed Medications: Sulfamethoxazole-Trimethoprim (Bactrim DS) 800-160 Mg Tab 1 TAB PO DAILY for Infection, #30 TAB 0 Refills (Medication details modified) take one tablet on Thursday, Thursday, Thursday Continued Medications: Azithromycin (Azithromycin) 600 Mg Tab 1200 MG PO Q7D for Infection, TAB 0 Refills Darunavir (Prezista) 600 Mg Tab 600 MG PO BID for Mgmt Viral Infection, #60 TAB 0 Refills Dolutegravir (Tivicay) 50 Mg Tab 50 MG PO BID for Mgmt Viral Infection, #60 TAB 0 Refills Gabapentin (Gabapentin) 100 Mg Cap 100 MG PO BID, #60 CAP 0 Refills Ipratropium Neb (Ipratropium Neb) 0.5 Mg/2.5 Ml Amp 0.5 MG NEB Q6HR NEB PRN for SHORTNESS OF BREATH, #1 BOX 0 Refills Lifitegrast Opth Drops (Xiidra Opth Drops) 5% Drops 1 DROP EACH EYE QOD for Dry Eye, #1 BOTTLE 0 Refills Lisinopril (Lisinopril) 5 Mg Tab 5 MG PO DAILY for Blood Pressure Management, #30 TAB 0 Refills Ewlyqfnc-Zrtfveczcgbrzmh-Ixgqtqqjy Liq (Magic Mouthwash Adult Liq) 120 Ml Susp 10 ML SWISH-SWAL QID for Sore Throat, #1 BOTTLE Pantoprazole (Pantoprazole) 40 Mg Tab 40 MG PO DAILY for Reflux, #30 TAB Ritonavir (Norvir) 100 Mg Cap 100 MG PO BID for Mgmt Viral Infection, #180 CAP 0 Refills Tenofovir disoproxil fumarate (Viread) 300 Mg Tab 300 MG PO DAILY for Mgmt Viral Infection, #30 TAB 0 Refills Tramadol (Tramadol) 50 Mg Tab 50 MG PO DAILY PRN for PAIN, TAB 0 Refills Milka Arora MD Oct 20, 2017 13:20
[2017-10-20] MEDS ORDERED: BACT800T5 PO (15:41)
[2017-10-20] MEDS ORDERED: DIFL100T PO (15:44)
[2017-10-21] MEDS ORDERED: PHARMACY ORDERED LAB ONE (08:45)
--- NOTE | 2017-10-24 11:21 | PQ ---
Physician Query Response Document PATIENT: JACOBY COLUNGA : 1975 ADMIT DATE: 10/14/2017 11:02 AM DISCH DATE: 10/20/2017 5:00 PM RESPONDING PROVIDER #: [email or web address] QUERY TEXT: Conflicting Documentation Clarification A single mention or documentation of multiple diagnoses for the same clinical presentation appears in the record. Please clarify the diagnosis/diagnoses: Sepsis vs bacteremia. Please also document if the condition is: -- Confirmed and current -- Confirmed, treated and resolved -- Ruled out -- Other, please specify If you have any additional questions/comments and/or concerns, please do not hesitate to reach out to the CDI/Coding Hotline, Ext. [phone]. The patient's Clinical Indicators include: Progress Note 10/14/17 - Assessment and Plan: Sepsis 2/2 above Diagnosis continues through Progress Notes and also in Discharge Summary. Progress Note 10/18/17: Coag-negative bacteremia likely contamination -on Rocephin and Zithromax per ID. vancomycin was discontinued yesterday. Follow cultures. Management per infectious disease. Sepsis 2/2 above No sepsis criteria listed in ED record. Patient is HIV positive and immunosuppressed. Query created by: Lore Montgomery on 10/23/2017 4:42 PM RESPONSE TEXT: Patient with poss sepsis ( neutropenia, fever, tachycardia, poss ADAMARIS, also bacteremia as source of in fection) Treated with antibiotic, antifungals. Also DC on antibiotics and to follow up as OP with his ID doctor. Biopsy pending Electronically signed by: Milka Arroa MD 10/24/2017 11:17 AM
== END 2017-10-20 17:00 | disposition home or self-care (01) | DRG 975 ==
LOC: NEPE 12:29 → NEDA 15:58 → NEPHCDU 17:32 → OBSVTOIN 10-14 11:02 → HCIN 10-16 23:30
PROVIDERS: ADMIT Hospitalist; ATTEND Hospitalist
PROC: 0DJD8ZZ Inspection of Lower Intestinal Tract, Via Natural or Artificial Opening Endoscopic (ICD-10-PCS; 2017-10-15)
PROC: 0DB38ZX Excision of Lower Esophagus, Via Natural or Artificial Opening Endoscopic, Diagnostic (ICD-10-PCS; 2017-10-15 09:51)
PROC: 07DR3ZX Extraction of Iliac Bone Marrow, Percutaneous Approach, Diagnostic (ICD-10-PCS; principal; 2017-10-19)
DX: A41.9 Sepsis, unspecified organism (principal); B20 Human immunodeficiency virus [HIV] disease; D61.818 Other pancytopenia; J18.9 Pneumonia, unspecified organism; B37.0 Candidal stomatitis; B37.81 Candidal esophagitis; K31.84 Gastroparesis; Z85.72 Personal history of non-Hodgkin lymphomas; Z92.21 Personal history of antineoplastic chemotherapy; F17.290 Nicotine dependence, other tobacco product, uncomplicated; F12.90 Cannabis use, unspecified, uncomplicated; K59.00 Constipation, unspecified; Z91.14 Patient's other noncompliance with medication regimen; L21.9 Seborrheic dermatitis, unspecified
CPT/HCPCS: 38222; 71045; 71046; 71260; 74018; 74177; 77012; 80048; 80053; 80074; 80202; 81001; 83605; 83615; 83690; 83735; 85007; 85025; 85027; 85097; 85610; 85652; 85730; 86355; 86357; 86359; 86360; 87040; 87077; 87116; 87186; 87205; 87449; 87497; 87536; 87804; 88184; 88185; 88237; 88264; 88280; 88305; 88311; 88312; 88313; 94150; 96361; 96365; 96375; 99152; 99153; C1830; G0378; G8987-GP; G8988-GP; J0456; J0696; J2250; J2270; J2405; J3010; J3370; J7030; J7040; J7050; Q0163; Q9963; Q9967

== ENCOUNTER 2018-01-18 11:31 | Emergency (ER) | payer MEDICARE, MEDICAID ==
[~2018-01-18] VITALS: Ht 180.3 cm; Wt 94.5 kg
[~2018-01-18 11:31] MED LIST changes: +AZIT600T PO; +BACT800T5 PO; +DARU600 PO; +DIFL100T PO; +DOLU1TAB PO; +LISI-519 PO; +RITO100 PO; +TENO300 PO
[2018-01-18 12:04] VITALS: BP 123/68; PULSE 91; RESP 18; TEMP 97.8; O2SAT 99
--- NOTE | 2018-01-18 19:44 | PD ---
Physical Exam Date Seen by Provider: Jan 18, 2018 Time Seen by Provider: 13:40 Narrative 42 year old male presents to the emergency department for evaluation of right sided chest pain, head congestion and coughing for 4 days. Current pain is 8/ 10. Moderate severity. Data Data Last Documented VS Vital Signs Date Time Temp Pulse Resp B/P (MAP) Pulse Ox O2 Delivery O2 Flow Rate FiO2 01/18/18 12:04 97.8 91 18 123/68 (86) 99 Orders Orders Basic Metabolic Panel (Bmp) (01/18/18 12:06) Ckmb (Isoenzyme) Profile (01/18/18 12:06) Complete Blood Count With Diff (01/18/18 12:06) Magnesium (Mg) (01/18/18 12:06) Prothrombin Time / Inr (Pt) (01/18/18 12:06) Act Partial Throm Time (Ptt) (01/18/18 12:06) Troponin I (01/18/18 12:06) MDM Supervised Visit with CHU: No Narrative Course 42 year old male presents to the emergency department for evaluation of right sided chest pain, cold symptoms for 4 days. Patient is initially seen in triage and work up is initiated. Patient left AMA before he could be moved to a medical bed. Diagnosis Primary Impression: Left against medical advice Patient Instructions: General Instructions Departure Forms: Tests/Procedures Disposition: 07 AGAINST MEDICAL ADVICE Ines Macedo Jan 18, 2018 19:44
== END 2018-01-18 19:06 | disposition left against medical advice (07) ==
LOC: NED 11:31
DX: R07.89 Other chest pain (principal)
CPT/HCPCS: 99281

== ENCOUNTER 2018-02-04 09:26 | Emergency (ER) | payer MEDICARE ==
[2018-02-04 09:31] VITALS: BP 149/96; PULSE 73; RESP 14; TEMP 97.6; O2SAT 100
[2018-02-04] MEDS ORDERED: predniSONE 20 MG TAB PO ONE (10:00)
--- NOTE | 2018-02-04 10:08 | PD ---
HPI Chief Complaint: Complaint Time Seen by Provider: 09:40 Travel History International Travel<30 days: No Contact w/Intl Traveler<30days: No Traveled to known affect area: No History of Present Illness HPI 42-year-old male presents to the emergency department for evaluation of an itchy rash that he has had for 2 months. He saw his power plant mechanic 2 weeks ago and was given a prescription for a cream which he cannot recall the name of. He states that his power plant mechanic told him that the cream would take at least 6 weeks to work. He states that he has not yet followed back up with his power plant mechanic. However, his friends told him that it could be due to an STD because he did have scrotal itching as well. However, he has no scrotal itching at this time. He denies any penile discharge. No testicular pain or swelling. Patient reports history of cancer which is in remission as well as HIV. He states he is not currently on HIV medications because they make him sick to his stomach. He is not currently taking any medications at all. His infectious disease physician is working on changing his medications. He has had no fevers or chills. No chest pain shortness breath. No difficulty breathing or swallowing. He denies any pain, just itchiness from the rash. Patient states that he is not sexually active and has not had sex in over 3 years. No other symptoms or complaints at this time. Mild severity. 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) Congestive Heart Failure: No Diabetes: No Diminished Hearing: No Endocrine: Yes Genitourinary: Yes Heparin Induced Thrombocytopen: No Musculoskeletal: No Neurologic: No Psychiatric: No Reproductive: No Respiratory: No Past Surgical History Coronary Artery Bypass Graft: No Neurologic Surgery: Yes ([place]) Social History Alcohol Use: Yes (RARE) Tobacco Use: Yes (2-3 CIGARETTES DAILY) Substance Use: No Allergies-Medications (Allergen,Severity, Reaction): Coded Allergies: albuterol (Verified Allergy, Intermediate, Hives, 02/04/18) shortness of breath Reported Meds & Prescriptions Reported Meds & Active Scripts Active Diflucan (Fluconazole) 100 Mg Tab 200 Mg PO DAILY Bactrim DS (Sulfamethoxazole-Trimethoprim) 800-160 Mg Tab 1 Tab PO DAILY take one tablet on Thursday, Thursday, Thursday Magic Mouthwash Adult Liq (Multi-Ingredient Mouthwash/Gargle) 120 Ml Susp 10 Ml SWISH-SWAL QID Pantoprazole (Pantoprazole Sodium) 40 Mg Tab 40 Mg PO DAILY Ipratropium Neb (Ipratropium [place]) 0.5 Mg/2.5 Ml Amp 0.5 Mg NEB Q6HR NEB PRN Reported Azithromycin 600 Mg Tab 1,200 Mg PO Q7D Lisinopril 5 Mg Tab 5 Mg PO DAILY Viread (Tenofovir Disoproxil Fumarate) 300 Mg Tab 300 Mg PO DAILY Prezista (Darunavir) 600 Mg Tab 600 Mg PO BID Norvir (Ritonavir) 100 Mg Cap 100 Mg PO BID Tivicay (Dolutegravir Sodium) 50 Mg Tab 50 Mg PO BID Gabapentin 100 Mg Cap 100 Mg PO BID Tramadol (Tramadol HCl) 50 Mg Tab 50 Mg PO DAILY PRN Xiidra Opth Drops (Lifitegrast Opth Drops) 5% Drops 1 Drop EACH EYE QOD Review of Systems Except as stated in HPI: all other systems reviewed are Neg Physical Exam Narrative GENERAL: Well-nourished, well-developed male patient, afebrile. SKIN: Focused skin assessment warm/dry. Patient has small papules to forearms, chest, back. No erythema or evidence of cellulitis. Skin appears dry and chafing. HEAD: Normocephalic. Atraumatic. EYES: No scleral icterus. No injection or drainage. NECK: Supple, trachea midline. No JVD or lymphadenopathy. CARDIOVASCULAR: Regular rate and rhythm without murmurs, gallops, or rubs. RESPIRATORY: Breath sounds equal bilaterally. No accessory muscle use. Lung sounds are clear to auscultation. GASTROINTESTINAL: Abdomen soft, non-tender, nondistended. MUSCULOSKELETAL: No cyanosis, or edema. BACK: Nontender without obvious deformity. No CVA tenderness. GENITOURINARY: Circumcised. Testes descended bilaterally without evidence of rotation. No lesions or erythema. No skin rash no urethral discharge. This exam was done with WILLIE Quintero, at bedside. Data Data Last Documented VS Vital Signs Date Time Temp Pulse Resp B/P (MAP) Pulse Ox O2 Delivery O2 Flow Rate FiO2 02/04/18 10:20 18 5/17/18 09:31 97.6 73 149/96 (113) 100 Orders Orders Prednisone (Deltasone) (02/04/18 10:00) Rapid Plasmin Reagin Screen (02/04/18 10:08) Gc And Chlamydia Pcr (02/04/18 10:08) Labs Laboratory Tests Test 02/04/18 10:25 [facility] Medical Decision Making Medical Screen Exam Complete: Yes Emergency Medical Condition: Yes Medical Record Reviewed: Yes Differential Diagnosis Intertrigo versus secondary syphilis versus STD versus eczema versus contact dermatitis Narrative Course 42-year-old male presents to the emergency department for evaluation of rash and STD test. RPR, urine for chlamydia and gonorrhea are ordered and pending. I talked to lab who states RPR will not be run until tomorrow morning. Limiting gonorrhea are pending. I discussed with the patient that I cannot confirm that he does or does not have secondary syphilis due to skin rash. I discussed treatment today versus waiting for the results. The patient states that he does not want to be treated until the results come back. He is aware that he would have to return for IM penicillin if the test were to come back positive. Patient states that he understands this and will return if it comes back positive. Patient will be discharged short-term prescription for prednisone for itching. The patient was discharged in stable condition with instructions, including return instructions and follow up instructions. Diagnosis Primary Impression: Skin rash Referrals: [employer] call for appointment Infectious Disease Specialist call for appointment Patient Instructions: Acute Rash (ED), General Instructions Additional Instructions: Take prednisone daily for itching. Continue creams as prescribed by power plant mechanic. If your tests today come back positive, you will receive a phone call and have to return for treatment. Follow-up with your power plant mechanic and infectious disease physician. Return to the emergency department for any acute worsening of symptoms Med/Other Pt SpecificInfo: Prescription(s) given Scripts Prednisone (Prednisone) 20 Mg Tab 40 MG PO DAILY for 5 Days, #10 TAB 0 Refills Prov: RemingtonInes 02/04/18 Disposition: 01 DISCHARGE HOME Condition: Stable Ines Macedo February 04, 2018 10:08
[2018-02-04] MEDS ORDERED: PRED20 PO (11:20)
== END 2018-02-04 11:27 | disposition home or self-care (01) ==
LOC: NEPK 09:26
DX: B20 Human immunodeficiency virus [HIV] disease (principal); R21 Rash and other nonspecific skin eruption; F17.210 Nicotine dependence, cigarettes, uncomplicated
CPT/HCPCS: 86592; 87491; 87591; 99283

== ENCOUNTER 2018-02-21 21:53 | Observation (INO) | payer MEDICARE, MEDICAID ==
[~2018-02-21] VITALS: Ht 180.3 cm; Wt 91.0 kg
[~2018-02-21 21:53] MED LIST changes: +PRED20 PO
[2018-02-21 22:00] VITALS: BP 137/72; PULSE 90; RESP 19; TEMP 97.8; O2SAT 99
[2018-02-21 22:26] VITALS: BP 128/80; PULSE 88; RESP 16; O2SAT 100
[2018-02-21 22:45] LABS: HEMATOCRIT 32.7 % (39.0-51.0); HEMOGLOBIN 10.7 GM/DL (13.0-17.0); MEAN CORPUSCULAR HEMOGLOBIN 30.9 PG (27.0-34.0); MEAN CORPUSCULAR HGB CONC 32.6 % (32.0-36.0); MEAN PLATELET VOLUME 8.6 FL (7.0-11.0); PLATELET COUNT 142 TH/MM3 (150-450); RED BLOOD COUNT 3.44 MIL/MM3 (4.50-5.90); RED CELL DISTRIBUTION WIDTH 15.6 % (11.6-17.2); WHITE BLOOD COUNT 1.2 TH/MM3 (4.0-11.0)
--- NOTE | 2018-02-21 22:51 | RADRPT ---
EXAM DATE: 02/21/2018 10:46 PM EDT AGE/SEX: 42 years / Male INDICATIONS: Chest and throat pain. CLINICAL DATA: This is the patient's initial encounter. Patient reports that signs and symptoms have been present for 2 days and indicates a pain score of 3/10. MEDICAL/SURGICAL HISTORY: None. None. [place] [facility] [place]. . FINDINGS: Minimal streakiness is noted within the left lung base consistent with atelectasis and/or minimal inf iltrate. Clinical correlation is recommended. The right lung is clear. The heart is stable. CONCLUSION: Multiple streakiness within the left lung base consistent with atelectasis and/or minimal infiltrate. Clinical correlation is recommended. Electronically signed by: Chaz Apodaca MD 02/21/2018 10:50 PM EDT
[2018-02-21 22:52] LABS: BILIRUBIN, URINE NEG (NEG); BLOOD, URINE NEG (NEG); GLUCOSE,URINE NEG (NEG); HYALINE CAST, URINE 28 /lpf (RARE); KETONE, URINE TRACE mg/dL (NEG); MUCUS URINE MOD /lpf (OCC); NITRITE,URINE NEG (NEG); SQUAMOUS EPITHELIAL CELL URINE 1 /hpf (0-5); URINE COLOR DARK-YELLOW (YELLW/STRAW); URINE LEUKOCYTE ESTERASE NEG (NEG)
[2018-02-21 22:56] LABS: PROTHROMBIN TIME - PATIENT 10.4 SEC (9.8-11.6)
--- NOTE | 2018-02-21 22:56 | PD ---
HPI Chief Complaint: Chest Pain Time Seen by Provider: 22:16 Travel History International Travel<30 days: No Contact w/Intl Traveler<30days: No Traveled to known affect area: No History of Present Illness HPI The patient is a 42 year old male who presents to the [facility] emergency department with a history of multiple systemic complaints that he reports first began 2-3 days ago. The patient reports that he began to have chest pain in the center of his chest that he describes as a burning sensation associated with difficulty swallowing, and pain. While lying. He reports that the symptoms are similar to when he had a yeast infection in his throat in the past. The patient has a history of HIV. The patient reports that he was first diagnosed in 2004. The patient reports that he is on retroviral medications, however he does not take them every day. He is unsure what his last viral load or CD4 count was. He reports that his primary care physician is Michelle Shaw. The patient also reports having a headache since yesterday. He reports that he tried taking Advil and Tylenol without relief. He reports that the headache is similar to when he had an intracranial hemorrhage in the past and had to have bur hole drainage. He reports that this was in 2013. He denies having any fevers. He denies having any neck pain or stiffness. He reports that at work earlier today he did have a syncopal event, however he did not injure himself. Review of systems otherwise, the patient reports having a cough that he reports is dry in character. He denies having any known fevers. He denies having any neck pain. He reports having some dyspnea on exertion. He denies having any abdominal pain, vomiting, diarrhea, urinary symptoms, or neurologic symptoms. [facility] Past Medical History Narrative Medical The patient's past medical history is significant for HIV reportedly first diagnosed in 2004 with progression to AIDS, history of medication noncompliance , history of Burkitt's lymphoma followed by Dr. 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) Congestive Heart Failure: No Diabetes: No Diminished Hearing: No Endocrine: Yes Genitourinary: Yes Heparin Induced Thrombocytopen: No Musculoskeletal: No Neurologic: No Psychiatric: No Reproductive: No Respiratory: Yes ('Yeast in throat") Tetanus Vaccination: < 5 Years Influenza Vaccination: No Past Surgical History Narrative Surgical The patient's past surgical history is significant craniotomy for subdural hematoma,[place] placement Coronary Artery Bypass Graft: No Neurologic Surgery: Yes ([place], [place] holes to R side x2) Other Surgery: Yes Social History Alcohol Use: Yes (RARE) Tobacco Use: Yes (2-3 CIGARETTES DAILY) Substance Use: Yes ([place]) Allergies-Medications (Allergen,Severity, Reaction): Coded Allergies: albuterol (Verified Allergy, Intermediate, Hives, 02/04/18) shortness of breath Reported Meds & Prescriptions Reported Meds & Active Scripts Active Prednisone 20 Mg Tab 40 Mg PO DAILY 5 Days Diflucan (Fluconazole) 100 Mg Tab 200 Mg PO DAILY Bactrim DS (Sulfamethoxazole-Trimethoprim) 800-160 Mg Tab 1 Tab PO DAILY take one tablet on Thursday, Thursday, Thursday Magic Mouthwash Adult Liq (Multi-Ingredient Mouthwash/Gargle) 120 Ml Susp 10 Ml SWISH-SWAL QID Pantoprazole (Pantoprazole Sodium) 40 Mg Tab 40 Mg PO DAILY Ipratropium Neb (Ipratropium [place]) 0.5 Mg/2.5 Ml Amp 0.5 Mg NEB Q6HR NEB PRN Reported Azithromycin 600 Mg Tab 1,200 Mg PO Q7D Lisinopril 5 Mg Tab 5 Mg PO DAILY Viread (Tenofovir Disoproxil Fumarate) 300 Mg Tab 300 Mg PO DAILY Prezista (Darunavir) 600 Mg Tab 600 Mg PO BID Norvir (Ritonavir) 100 Mg Cap 100 Mg PO BID Tivicay (Dolutegravir Sodium) 50 Mg Tab 50 Mg PO BID Gabapentin 100 Mg Cap 100 Mg PO BID Tramadol (Tramadol HCl) 50 Mg Tab 50 Mg PO DAILY PRN Xiidra Opth Drops (Lifitegrast Opth Drops) 5% Drops 1 Drop EACH EYE QOD Review of Systems General / Constitutional: No: Fever Eyes: No: Visual changes HENT: Positive: Congestion, No: Headaches Cardiovascular: Positive: Chest Pain or Discomfort, Syncope, Dyspnea on exertion Respiratory: Positive: Cough, Shortness of Breath Gastrointestinal: No: Abdominal Pain Genitourinary: No: Dysuria Musculoskeletal: Positive: Myalgias, No: Pain Skin: No Rash Neurologic: Positive: Headache, No: Weakness, Focal Abnormalities, Change in Mentation, Slurred Speech, Sensory Disturbance Psychiatric: No: Depression Endocrine: No: Polydipsia Hematologic/Lymphatic: No: Easy Bruising Physical Exam Narrative General: The patient is a well-developed well-nourished male in no acute distress. Head and Neck exam: Head is normocephalic, atraumatic, area of swelling over the right side of the parietal scalp/frontal skull which he reports is an implant related to chemotherapy for Burkitt's lymphoma. Eyes: EOMI, pupils are equal round and reactive to light. Nose: Midline septum with pink mucous membranes Mouth: Dentition unremarkable. Moist mucus membranes. Posterior oropharynx is mild erythematous. No tonsillar hypertrophy. Uvula midline. Airway patent. No thrush is visualized. Neck: No palpable lymphadenopathy, however he reports tenderness on palpation overlying the anterior proximal cervical lymph nodes. No nuchal rigidity. No thyromegaly. Cardiovascular: Regular rate and rhythm without murmurs, gallops, or rubs. Lungs: Clear to auscultation bilaterally. No wheezes, rhonchi, or rales. Abdomen: Soft, without tenderness to palpation in all 4 quadrants of the abdomen. No guarding, rebound, or rigidity. Normal bowel sounds are audible. No tenderness on palpation of McBurney's point. Negative Roe sign. Extremities: No clubbing, cyanosis, or edema. 2+ pulses in all 4 extremities. No calf tenderness on palpation. Back: No spinous process tenderness to palpation. No costovertebral angle tenderness to palpation. Neurologic Exam: Grossly nonfocal peer Skin Exam: No rash noted. Intact skin that is warm and dry. Data Data Last Documented VS Vital Signs Date Time Temp Pulse Resp B/P (MAP) Pulse Ox O2 Delivery O2 Flow Rate FiO2 02/22/18 00:03 71 16 134/72 (92) 100 Room Air 02/21/18 22:00 97.8 Orders Orders Electrocardiogram (02/21/18 22:21) Complete Blood Count With Diff (02/21/18 22:21) Comprehensive Metabolic Panel (02/21/18 22:21) Creatine Kinase (Cpk) (02/21/18 22:21) Ckmb (Isoenzyme) Profile (02/21/18 22:21) Troponin I (02/21/18 22:21) B-Type Natriuretic Peptide (02/21/18 22:21) Prothrombin Time / Inr (Pt) (02/21/18 22:21) Act Partial Throm Time (Ptt) (02/21/18 22:21) Lipase (02/21/18 22:21) Urinalysis - C+S If Indicated (02/21/18 22:21) D-Dimer (02/21/18 22:21) Magnesium (Mg) (02/21/18 22:21) Chest, Single Ap (02/21/18 22:21) Iv Access Insert/Monitor (02/21/18 22:21) Ecg Monitoring (02/21/18 22:21) Oximetry (02/21/18 22:21) Group A Rapid Strep Screen (02/21/18 22:50) Ct Brain W/O Iv Contrast(Rout) (02/21/18 22:50) CKMB (02/21/18 22:25) CKMB% (02/21/18 22:25) Strep Culture (Group A) (02/21/18 23:05) Sodium Chlor 0.9% 1000 Ml Inj (Ns 1000 M (02/22/18 00:15) Cefepime Inj (Maxipime Inj) (02/22/18 00:15) Lactic Acid Sepsis Protocol (02/22/18 00:10) Blood Culture (02/22/18 00:10) Cefepime Inj (Maxipime Inj) (02/22/18 12:00) Place In Observation (02/22/18 ) Vital Signs (Adult) Q4H (02/22/18 00:47) Activity Oob Ad Nichelle (02/22/18 00:47) Ambulatory Care Nurse / Telemetry .CONTINUOUS (02/22/18 00:47) Intake + Output QUINTON.QSHIFT (02/22/18 00:47) Diet Heart Healthy (02/22/18 Breakfast) Sodium Chloride 0.9% Flush (Ns Flush) (02/22/18 01:00) Sodium Chloride 0.9% Flush (Ns Flush) (02/22/18 09:00) Metoclopramide Inj (Reglan Inj) (02/22/18 01:00) Comprehensive Metabolic Panel (02/23/18 06:00) Complete Blood Count With Diff (02/23/18 06:00) Troponin I (02/22/18 06:00) Troponin I (02/22/18 12:00) Case Management Consult (02/22/18 00:47) Heparin Inj (Heparin Inj) (02/22/18 09:00) Acetaminophen (Tylenol) (02/22/18 01:00) Acetamin-Hydrocod 325-5 Mg ([place] 5-325 (02/22/18 01:00) Docusate Sodium-Senna ([place]-Colace) (02/22/18 09:00) Magnesium Hydroxide Liq (Milk Of Magnesi (02/22/18 01:00) Sennosides (Senokot) (02/22/18 01:00) Bisacodyl Supp (Dulcolax Supp) (02/22/18 01:00) Lactulose Liq (Lactulose Liq) (02/22/18 01:00) Lipid Profile (02/22/18 06:00) Hemoglobin (Hgb) A1c (02/22/18 06:00) Azithromycin (Zithromax) (02/22/18 01:00) Darunavir (Prezista) (02/22/18 09:00) Dolutegravir (Tivicay) (02/22/18 09:00) Fluconazole (Diflucan) (02/22/18 09:00) Pantoprazole (Protonix) (02/22/18 09:00) Ritonavir (Norvir) (02/22/18 09:00) Sulfamet-Trimeth Ds 800-160 Mg (Bactrim (02/22/18 09:00) Tenofovir (Viread) (02/22/18 09:00) Admit Order (Ed Use Only) (02/22/18 00:55) Morphine Inj (Morphine Inj) (02/22/18 01:00) Labs Laboratory Tests Test 02/21/18 22:25 02/22/18 00:18 White Blood Count 1.2 TH/MM3 Red Blood Count 3.44 MIL/MM3 Hemoglobin 10.7 GM/DL Hematocrit 32.7 % Mean Corpuscular Volume 95.0 FL Mean Corpuscular Hemoglobin 30.9 PG Mean Corpuscular Hemoglobin Concent 32.6 % Red Cell Distribution Width 15.6 % Platelet Count 142 TH/MM3 Mean Platelet Volume 8.6 FL CBC Comment AUTO DIFF Differential Total Cells Counted 25 Neutrophils % (Manual) 16 % Lymphocytes % 48 % Monocytes % 24 % Eosinophils % 12 % Neutrophils # (Manual) 0.2 TH/MM3 Nucleated Red Blood Cells 4 /100 WBC Differential Comment FINAL DIFF MANUAL Platelet Estimate LOW Platelet Morphology Comment NORMAL Ovalocytes 1+ Prothrombin Time 10.4 SEC Prothromb Time International Ratio 1.0 RATIO Activated Partial Thromboplast Time 28.9 SEC D-Dimer Quantitative (PE/DVT) 1.18 MG/L FEU Urine Color DARK-YELLOW Urine Turbidity HAZY Urine pH 6.0 Urine Specific [place] 1.038 Urine Protein 300 mg/dL Urine Glucose (UA) NEG mg/dL Urine Ketones TRACE mg/dL Urine Occult Blood NEG Urine Nitrite NEG Urine Bilirubin NEG Urine Urobilinogen 4.0 MG/DL Urine Leukocyte Esterase NEG Urine RBC 2 /hpf Urine WBC 5 /hpf Urine Squamous Epithelial Cells 1 /hpf Urine Hyaline Casts 28 /lpf Urine Mucus MOD /lpf Microscopic Urinalysis Comment CULT NOT INDICATED Blood Urea Nitrogen 20 MG/DL Creatinine 1.19 MG/DL Random Glucose 77 MG/DL Total Protein 7.4 GM/DL Albumin 3.6 GM/DL Calcium Level 8.0 MG/DL Magnesium Level 1.8 MG/DL Alkaline Phosphatase 75 U/L Aspartate Amino Transf (AST/SGOT) 22 U/L Alanine Aminotransferase (ALT/SGPT) 19 U/L Total Bilirubin 0.3 MG/DL Sodium Level 139 MEQ/L Potassium Level 3.8 MEQ/L Chloride Level 104 MEQ/L Carbon Dioxide Level 24.5 MEQ/L Anion Gap 11 MEQ/L Estimat Glomerular Filtration Rate 82 ML/MIN Total Creatine Kinase 255 U/L Creatine Kinase MB 3.2 NG/ML Troponin I LESS THAN 0.02 NG/ML B-Type Natriuretic Peptide LESS THAN 2 PG/ML Lipase 144 U/L Lactic Acid Level 0.3 mmol/L [facility] Medical Decision Making Medical Screen Exam Complete: Yes Emergency Medical Condition: Yes Medical Record Reviewed: Yes Differential Diagnosis Pneumonia, versus intracranial hemorrhage, versus sepsis, versus neutropenia, versus acid reflux, versus thrush related esophagitis, versus acute coronary syndrome Narrative Course During the course of the patient's emergency department visit, the patient's history, examination, and differential diagnosis were reviewed with the patient. The patient was placed on a cardiac care unit nurse with oximetry and frequent blood pressure monitoring. The patient had IV access obtained and blood work sent for analysis. The patient had an EKG done on arrival that shows a sinus rhythm heart rate of 80 QRS duration is 84 ms, QTC [address] segment elevation. The patient's laboratory studies were reviewed and remarkable for a rapid strep test that is negative, CMP is remarkable for a white count of 1.2, hemoglobin 10.7, platelets 142 with neutropenia and a neutrophil number of 0.2. The patient was started on cefepime 2 g IV, CMP is remarkable for BUN of 20, GFR of 82, calcium 8.0, lactic acid 0.3, cardiac enzymes within normal limits, BNP less than 2, lipase 144, PT PTT within normal limits, urinalysis shows concentrated urine trace ketones for urobilinogen, moderate mucus otherwise unremarkable Radiology studies were reviewed and remarkable for Last Impressions Head CT 02/21/182249 Signed Impressions: CONCLUSION: 1. Stable and unremarkable CT scan of the brain compared to the prior exam. 2. No change in the position of the right ventricular catheter or size of the ventricles.. Chest X-Ray 02/21/182220 Signed Impressions: CONCLUSION: Multiple streakiness within the left lung base consistent with atelectasis and/ or minimal infiltrate. Clinical correlation is recommended. The patient's results were discussed with the patient, including the plan of care. I explained that further testing and/ or monitoring is indicated based on the patient's history, examination, and/ or laboratory findings. Therefore, I recommended admission for additional evaluation. The patient expressed understanding and was agreeable with this plan. The patient was admitted to the hospital in guarded condition and [facility] Physician Communication Physician Communication The patient's case including history, pertinent physical examination findings, and laboratory studies were discussed with Dr. Alva. It was agreed that the [facility] Diagnosis Primary Impression: Pneumonia Qualified Codes: J18.1 - Lobar pneumonia, unspecified organism Additional Impression: Neutropenia Qualified Codes: D70.9 - Neutropenia, unspecified Admitting Information Admitting Physician Requests: Admit Marina Erazo MD Feb 21, 2018 22:56
[2018-02-21 22:57] LABS: D-DIMER 1.18 MG/L FEU (0.00-0.50)
[2018-02-21 23:02] LABS: ALBUMIN 3.6 GM/DL (3.4-5.0); ALT (GPT) 19 U/L (12-78); AST (GOT) 22 U/L (15-37); BICARBONATE 24.5 MEQ/L (21.0-32.0); BLOOD UREA NITROGEN 20 MG/DL (7-18); CHLORIDE 104 MEQ/L (98-107); CREATININE 1.19 MG/DL (0.60-1.30); GLOMERULAR FILTRATION RATE 82 ML/MIN (>89); GLUCOSE,RANDOM 77 MG/DL (74-106); MAGNESIUM 1.8 MG/DL (1.5-2.5); SODIUM (NA) 139 MEQ/L (136-145)
[2018-02-21 23:07] LABS: ALKALINE PHOSPHATASE 75 U/L (45-117); TOTAL BILIRUBIN ADULT 0.3 MG/DL (0.2-1.0); TOTAL PROTEIN 7.4 GM/DL (6.4-8.2); TROPONIN I LESS THAN 0.02 NG/ML (0.02-0.05)
[2018-02-21 23:12] LABS: CORRECTED NUCLEATED RBC 4 /100 WBC (0-0); LYMPHOCYTES 48 % (9-44); MONOCYTES 24 % (0-8); NEUTROPHIL # MANUAL DIFF 0.2 TH/MM3 (1.8-7.7); NUCLEATED RED BLOOD CELL 1 (0-0); POLYS (SEG NEUTROPHILS) 16 % (16-70)
[2018-02-21 23:13] LABS: OVALOCYTES 1+ (NORMAL)
--- NOTE | 2018-02-21 23:16 | RADRPT ---
EXAM DATE: 02/21/2018 11:09 PM EDT AGE/SEX: 42 years / Male INDICATIONS: Cephalgia. CLINICAL DATA: This is the patient's initial encounter. Patient reports that signs and symptoms have been present for 2 days and indicates a pain score of 8/10. MEDICAL/SURGICAL HISTORY: Lymphoma. HIV. . 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 RADIATION DOSE: 39.93 CTDI (mGy) COMPARISON: [facility], CT BRAIN W/O CONTRAST, 11/05/2016. . TECHNIQUE: CT of the head without contrast. Using automated exposure control and adjustment of the mA and/or kV according to patient size, radiation dose was kept as low as reasonably achievable to ob tain optimal diagnostic quality images. FINDINGS: Cerebrum: The ventricles are normal in size and stable compared to the prior study.. There is a rig ht ventricular catheter in place. This is unchanged compared to the prior study. No evidence of midli ne shift, mass lesion, hemorrhage or acute infarction. No extraaxial fluid collections are seen. Posterior Fossa: The cerebellum and brainstem are intact. The 4th ventricle is midline. The cerebe llopontine angle is unremarkable. Extracranial: The visualized portion of the orbits is intact. Skull: The calvaria is intact. No evidence of skull fracture. No significant changes compared to the prior study. CONCLUSION: 1. Stable and unremarkable CT scan of the brain compared to the prior exam. 2. No change in the position of the right ventricular catheter or size of the ventricles.. Electronically signed by: Harjit Cabrales MD 02/21/2018 11:14 PM EDT
[2018-02-22 00:03] VITALS: BP 134/72; PULSE 71; RESP 16; O2SAT 100
[2018-02-22] MEDS ORDERED: SODIUM CHLOR 0.9% 1000 ML INJ 1,000 ML IV ONE (00:15)
[2018-02-22] MEDS ORDERED: CEFEPIME INJ 2,000 MG in SODIUM CHLORIDE 0.9% INJ 100 ML IV SCH (00:15)
[2018-02-22] MEDS ORDERED: LACTULOSE SYRUP 20 GM/30 ML CUP PO PRN (01:00)
[2018-02-22] MEDS ORDERED: METOCLOPRAMIDE HCL 10 MG/2 ML VIAL IV PUSH PRN (01:00)
[2018-02-22] MEDS ORDERED: SODIUM CHLORIDE 0.9% FLUSH 10 ML FLUSH IV FLUSH PRN (01:00)
[2018-02-22] MEDS ORDERED: SENNOSIDES 8.6 MG TAB PO PRN (01:00)
[2018-02-22] MEDS ORDERED: MAGNESIUM HYDROXIDE SUSP 30 ML CUP PO PRN (01:00)
[2018-02-22] MEDS ORDERED: AZITHROMYCIN 600 MG TAB PO SCH (01:00)
[2018-02-22] MEDS ORDERED: ACETAMINOPHEN 325 MG TAB PO PRN (01:00)
[2018-02-22] MEDS ORDERED: BISACODYL 10 MG SUPP RECTAL PRN (01:00)
--- NOTE | 2018-02-22 02:45 | HHI.HP ---
HPI Service [facility] Primary Care Physician JOO Guadarrama Admission Diagnosis Pneumonia, neutropenia Diagnoses: (1) Chest pain Diagnosis: Principal (2) PNA (pneumonia) Diagnosis: Principal (3) Burkitt lymphoma Diagnosis: Principal (4) HIV (human immunodeficiency virus infection) Diagnosis: Principal Travel History International Travel<30 Days: No Contact w/Intl Traveler <30 Da: No Traveled to Known Affected Are: No History of Present Illness This is a 42-year-old male with PMH of Burkitt's Lymphoma and HIV who presented to the ER with complaints of chest pain x2-3 days. Reports pain is substernal/ epigastric, constant, burning, severe, 10/10, non-radiating. H/o HIV, does not know last CD4, intermittently compliant w/ HAART. Per review of records, last CD4 29 on 10/15/17. Following w/ Dr. Owen for Burkitt's Lymphoma, h/o Pancytopenia w/ transient improvement on HAART regimen at the time of last visit on 01/22/18. Denies fever, chills, cough or SOB. On arrival, BP 137/72, HR 90, O2 sat 99% RA, Afebrile. WBC 1.2, previously 1.6 on 10/20/2017. Hemoglobin 10.7, previously 9.2. Platelets 142, previously 121 on 10/20/2017. Chemistry essentially unremarkable except for creatinine 20. LFTs normal. Troponin negative. INR 1.0. CT Head with no acute findings. CXR mild streakiness left lung base. S/p Cefepime in ER. Review of Systems Except as stated in HPI: all other systems reviewed are Neg ROS: 14 point review of systems otherwise negative. Past Family Social History Past Medical History PMH: Burkitt's Lymphoma and HIV Past Surgical History PAST SURGICAL HISTORY: Bur hole Allergies: Coded Allergies: albuterol (Verified Allergy, Intermediate, Hives, 02/04/18) shortness of breath Family History PAST FAMILY HISTORY: Reviewed. No h/o DM or CAD Social History PAST SOCIAL HISTORY: Occasional alcohol. Positive for tobacco. + Marijuana. Physical Exam Vital Signs Vital Signs Date Time Temp Pulse Resp B/P (MAP) Pulse Ox O2 Delivery O2 Flow Rate FiO2 02/22/18 01:43 02/22/18 00:03 71 16 134/72 (92) 100 Room Air 02/21/18 22:26 88 16 128/80 (96) 100 Room Air 02/21/18 22:26 100 Room Air 02/21/18 22:00 97.8 90 19 137/72 (93) 99 Physical Exam PE: GENERAL: Young black male in no acute distress. HEENT: PERRLA, EOMI. No scleral icterus or conjunctival pallor. No lid lag or facial droop. No thrush CARDIOVASCULAR: Regular rate and rhythm. No obvious murmurs to auscultation. No chest tenderness to palpation. RESPIRATORY: No obvious rhonchi or wheezing. Clear to auscultation. Breath sounds equal bilaterally. GASTROINTESTINAL: Abdomen soft, non-tender, nondistended. BS normal. MUSCULOSKELETAL: Extremities without clubbing, cyanosis, or edema. No obvious deformities. NEUROLOGICAL: Awake, alert and oriented x4. No focal neurologic deficits. Moving both upper and lower extremities spontaneously. Laboratory Laboratory Tests Test 02/21/18 22:25 02/22/18 00:18 White Blood Count 1.2 Red Blood Count 3.44 Hemoglobin 10.7 Hematocrit 32.7 Mean Corpuscular Volume 95.0 Mean Corpuscular Hemoglobin 30.9 Mean Corpuscular Hemoglobin Concent 32.6 Red Cell Distribution Width 15.6 Platelet Count 142 Mean Platelet Volume 8.6 CBC Comment AUTO DIFF Differential Total Cells Counted 25 Neutrophils % (Manual) 16 Lymphocytes % 48 Monocytes % 24 Eosinophils % 12 Neutrophils # (Manual) 0.2 Nucleated Red Blood Cells 4 Differential Comment FINAL DIFF MANUAL Platelet Estimate LOW Platelet Morphology Comment NORMAL Ovalocytes 1+ Prothrombin Time 10.4 Prothromb Time International Ratio 1.0 Activated Partial Thromboplast Time 28.9 D-Dimer Quantitative (PE/DVT) 1.18 Urine Color DARK-YELLOW Urine Turbidity HAZY Urine pH 6.0 Urine Specific [place] 1.038 Urine Protein 300 Urine Glucose (UA) NEG Urine Ketones TRACE Urine Occult Blood NEG Urine Nitrite NEG Urine Bilirubin NEG Urine Urobilinogen 4.0 Urine Leukocyte Esterase NEG Urine RBC 2 Urine WBC 5 Urine Squamous Epithelial Cells 1 Urine Hyaline Casts 28 Urine Mucus MOD Microscopic Urinalysis Comment CULT NOT INDICATED Blood Urea Nitrogen 20 Creatinine 1.19 Random Glucose 77 Total Protein 7.4 Albumin 3.6 Calcium Level 8.0 Magnesium Level 1.8 Alkaline Phosphatase 75 Aspartate Amino Transf (AST/SGOT) 22 Alanine Aminotransferase (ALT/SGPT) 19 Total Bilirubin 0.3 Sodium Level 139 Potassium Level 3.8 Chloride Level 104 Carbon Dioxide Level 24.5 Anion Gap 11 Estimat Glomerular Filtration Rate 82 Total Creatine Kinase 255 Creatine Kinase MB 3.2 Troponin I LESS THAN 0.02 B-Type Natriuretic Peptide LESS THAN 2 Lipase 144 Lactic Acid Level 0.3 Date/Time Source Procedure Growth Status 02/22/18 00:18 Blood Peripheral Aerobic Blood Culture Pending Received 02/22/18 00:18 Blood Peripheral Anaerobic Blood Culture Pending Received 02/21/18 23:05 Throat Group A Streptococcus Screen Pending Received Result Diagram: 02/21/18222402/21/182224 Marina VTE Risk Assessment Caprini VTE Risk Assessment: No/Low Risk (score <= 1) Caprini Risk Assessment Model Point Value = 1 Point Value = 2 Point Value = 3 Point Value = 5 Age 41-60 Minor surgery BMI > 25 kg/m2 Swollen legs Varicose veins or History of unexplained or recurrent spontaneous Oral contraceptives or hormone replacement Sepsis (< 1 month) Serious lung disease, including pneumonia (< 1 month) Abnormal pulmonary function Acute myocardial infarction Congestive heart failure (< 1 month) History of inflammatory bowel disease Medical patient at bed rest Age 61-74 Arthroscopic surgery Major open surgery (> 45 min) Laparoscopic surgery (> 45 min) Malignancy Confined to bed (> 72 hours) Immobilizing plaster cast Central venous access Age >= 75 History of VTE Family history of VTE Factor V Leiden Prothrombin [id number] Lupus anticoagulant Anticardiolipin antibodies Elevated serum homocysteine Heparin-induced thrombocytopenia Other congenital or acquired thrombophilia Stroke (< 1 month) Elective arthroplasty Hip, pelvis, or leg fracture Acute spinal cord injury (< 1 month) Prophylaxis Regimen Total Risk Factor Score Risk Level Prophylaxis Regimen 0-1 Low Early ambulation 2 Moderate Order ONE of the following: *Sequential Compression Device (SCD) *Heparin 5000 units SQ BID 3-4 Higher Order ONE of the following medications: *Heparin 5000 units SQ TID *Enoxaparin/Lovenox 40 mg SQ daily (WT < 150 kg, CrCl > 30 mL/min) *Enoxaparin/Lovenox 30 mg SQ daily (WT < 150 kg, CrCl > 10-29 mL/min) *Enoxaparin/Lovenox 30 mg SQ BID (WT < 150 kg, CrCl > 30 mL/min) AND/OR *Sequential Compression Device (SCD) 5 or more Highest Order ONE of the following medications: *Heparin 5000 units SQ TID (Preferred with Epidurals) *Enoxaparin/Lovenox 40 mg SQ daily (WT < 150 kg, CrCl > 30 mL/min) *Enoxaparin/Lovenox 30 mg SQ daily (WT < 150 kg, CrCl > 10-29 mL/min) *Enoxaparin/Lovenox 30 mg SQ BID (WT < 150 kg, CrCl > 30 mL/min) AND *Sequential Compression Device (SCD) Assessment and Plan Problem List: (1) PNA (pneumonia) ICD Code: J18.9 - Pneumonia, unspecified organism (2) Chest pain ICD Code: R07.9 - Chest pain, unspecified (3) Burkitt lymphoma ICD Code: C83.70 - Burkitt lymphoma, unspecified site (4) HIV (human immunodeficiency virus infection) ICD Code: B20 - Human immunodeficiency virus [HIV] disease Assessment and Plan A/P: 1. PNA: CXR w/ mild left streakiness at base, no fever, however in light of immunocompromised state, will continue w/ IV Abx, DuoNeb prn, monitor O2. 2. Chest Pain: Likely secondary to above, initial trop negative, admit for Observation, telemetry, check serial cardiac enzymes, Lipid Profile, Hgb A1c. NTG/Morphine prn. 3. HIV: Intermittently compliant w/ meds, Last CD4 29 on 10/15/17, resume HAART , resume prophylaxis. 4. Burkitt's Lymphoma: w/ h/o Pancytopenia, transiently improved while on HAART, now back to baseline. Following w/ Dr. Owen as outpatient, last seen 01/22/18 w/ plans for follow up in 6mo. Will consult as needed. 5. DVT Prophylaxis: SCD/teds. 6. Social work for DC planning as needed. 7. Case discussed at length with the ER physician, lab/record/imaging reviewed by me. Maribel Alva MD Feb 22, 2018 02:45
[2018-02-22 04:07] VITALS: BP 122/71; PULSE 76; RESP 17; TEMP 98.3; O2SAT 100
[2018-02-22 08:31] VITALS: BP 121/60; PULSE 75; RESP 20; TEMP 98.6; O2SAT 100
[2018-02-22] MEDS: RITONAVIR 100 MG TAB PO SCH ×2 (09:00→21:50)
[2018-02-22] MEDS: DARUNAVIR 600 MG TAB PO SCH ×2 (09:00→11:28)
[2018-02-22] MEDS: DOLUTEGRAVIR SODIUM 50 MG TAB PO SCH ×2 (09:00→11:29)
[2018-02-22] MEDS ORDERED: IOHEXOL 350 MG/ML 10 ML VIAL (for RAD DIAG) IVCONTRAST ONE (09:05)
--- NOTE | 2018-02-22 09:26 | HHI.PR ---
Subjective Remarks Follow-up for chest pain, pneumonia. Patient is requesting IV pain medication for his current constant throbbing 9/10 global headache, worse at the right parietal area. He states the pain is similar to his history of aneurysms requiring catherine hole surgery back in 2014 in [place]. He states the pain has been constant throughout the night. He denies any current chest pain. Denies fevers or chills. Denies any shortness of breath or cough. He reports intermittent nausea, last episode of vomiting was yesterday. Denies any other medical complaints at this time. Objective Vitals Vital Signs Date Time Temp Pulse Resp B/P (MAP) Pulse Ox O2 Delivery O2 Flow Rate FiO2 02/22/18 08:31 98.6 75 20 121/60 (80) 100 02/22/18 04:07 98.3 76 17 122/71 (88) 100 02/22/18 01:43 02/22/18 00:03 71 16 134/72 (92) 100 Room Air 02/21/18 22:26 88 16 128/80 (96) 100 Room Air 02/21/18 22:26 100 Room Air 02/21/18 22:00 97.8 90 19 137/72 (93) 99 I/O 02/21/18 02/21/18 02/21/18 02/22/18 02/22/18 02/22/18 07:00 15:00 23:00 07:00 15:00 23:00 Intake Total 1100 ml Balance 1100 ml Intake IV Total 1100 ml Result Diagram: 02/21/18222402/21/[address] Angiography 02/22/18 0000 Signed Impressions: CONCLUSION: 1. No pulmonary embolus or acute infiltrate to explain current clinical sympto ms. 2. Nonspecific subpleural nodules and left lingular atelectasis/scarring. Find ings may be postinflammatory but I would recommend a follow-up noncontrasted CT scan of the chest in 6 months to ensure stability, especially if the patient h as a smoking history. 3. Small mediastinal and axillary lymph nodes, all normal by size criteria Head CT 02/21/18 2250 Signed Impressions: CONCLUSION: 1. Stable and unremarkable CT scan of the brain compared to the prior exam. 2. No change in the position of the right ventricular catheter or size of the ventricles.. Chest X-Ray 02/21/182220 Signed Impressions: CONCLUSION: Multiple streakiness within the left lung base consistent with atelectasis and/ or minimal infiltrate. Clinical correlation is recommended. Objective Remarks GENERAL: Well-nourished, well-developed middle-aged female patient in [employer]. SKIN: Warm and dry. No rash. HEENT: Normocephalic. Atraumatic. PERRLA. EOMI. Mucous membranes pink and moist. CARDIOVASCULAR: Regular rate and rhythm. No murmur appreciated. RESPIRATORY: No accessory muscle use. Clear to auscultation. Breath sounds equal bilaterally. GASTROINTESTINAL: Abdomen soft, non-tender, nondistended. Normoactive bowel sounds x4. MUSCULOSKELETAL: No obvious deformities. Extremities without clubbing, cyanosis , or edema. NEUROLOGICAL: Awake and alert. No obvious cranial nerve deficits. Motor grossly within normal limits. Moving all extremities spontaneously. Normal speech. PSYCHIATRIC: Appropriate mood and affect; insight and judgment normal. Medications and IVs Current Medications Medications (Trade) Dose Ordered Sig/Braulio Route Start Time Stop Time Status Last Admin Cefepime HCl 1000 mg/Sodium Chloride 100 ml @ 200 mls/hr Q12H IV 02/22/18 12:00 02/22/18 11:27 (NS Flush) 2 ml UNSCH PRN IV FLUSH 02/22/18 01:00 (NS Flush) 2 ml BID IV FLUSH 02/22/18 09:00 02/22/18 10:30 (Reglan Inj) 5 mg Q6H PRN IV PUSH 02/22/18 01:00 (Heparin Inj) 5,000 units Q12H SQ 02/22/18 09:00 02/22/18 10:30 (Tylenol) 650 mg Q6H PRN PO 02/22/18 01:00 ([place] 5-325 Mg) 1 tab Q4H PRN PO 02/22/18 01:00 (Morphine Inj) 2 mg Q3H PRN IV PUSH 02/22/18 01:00 02/22/18 11:26 ([place]-Colace) 1 tab BID PO 02/22/18 09:00 02/22/18 10:26 (Milk Of Magnesia Liq) 30 ml Q12H PRN PO 02/22/18 01:00 (Senokot) 17.2 mg Q12H PRN PO 02/22/18 01:00 (Dulcolax Supp) 10 mg DAILY PRN RECTAL 02/22/18 01:00 (Lactulose Liq) 30 ml DAILY PRN PO 02/22/18 01:00 (Zithromax) 1,200 mg Q7D PO 02/22/18 01:00 02/22/18 01:29 (Prezista) 600 mg BID PO 02/22/18 09:00 02/22/18 11:28 (Diflucan) 200 mg DAILY PO 02/22/18 09:00 02/22/18 10:28 (Protonix) 40 mg DAILY PO 02/22/18 09:00 02/22/18 10:26 (Norvir) 100 mg BID PO 02/22/18 09:00 02/22/18 09:00 (Bactrim Ds 800-160 Mg) 1 tab DAILY PO 02/22/18 09:00 02/22/18 10:27 (Viread) 300 mg DAILY PO 02/22/18 09:00 02/22/18 11:29 Sodium Chloride 1,000 ml @ 100 mls/hr Q10H IV 02/22/18 09:30 02/22/18 11:26 A/P Problem List: (1) PNA (pneumonia) ICD Code: J18.9 - Pneumonia, unspecified organism (2) Chest pain ICD Code: R07.9 - Chest pain, unspecified (3) Burkitt lymphoma ICD Code: C83.70 - Burkitt lymphoma, unspecified site (4) HIV (human immunodeficiency virus infection) ICD Code: B20 - Human immunodeficiency virus [HIV] disease Assessment and Plan 42-year-old male with PMH of Burkitt's Lymphoma and HIV who presented to the ER with complaints of chest pain x2-3 days. Immunocompromised with PNA: CXR w/ mild left streakiness at base. Afebrile currently. WBC 1.2K. Lactic acid wnl. -Continue antibiotics with IV Cefepime and po Azithro -Blood cultures collected and pending -DuoNeb prn -O2 as needed, currently stable on room air Atypical Chest Pain: Likely secondary to above. -initial trop negative, will check serial cardiac enzymes/EKGs -Monitor on telemetry -Check Lipid Profile, Hgb A1c. -NTG/Morphine prn. -Currently resolved HIV: Intermittently compliant w/ meds, Last CD4 29 on 10/15/17 -resume HAART, resume prophylaxis. -RN reporting patient refusing HAART medications today. Burkitt's Lymphoma: w/ h/o Pancytopenia, transiently improved while on HAART, now back to baseline. -Following w/ Dr. Owen as outpatient, last seen 01/22/18 w/ plans for follow up in 6mo, will consult Dr. Owen. Headache: patient reporting 9/10 pain consistent with previous pain from aneurysms. -Head CT reviewed and unremarkable -Check brain MRI/MRA for further evaluation -Pain control as needed DVT Prophylaxis: SCD/teds. Discharge Planning Discharge pending further work up and clinical improvement. Discussed with case management. Maria Luisa Richardson PA-C Feb 22, 2018 9:26 am
--- NOTE | 2018-02-22 09:30 | RADRPT ---
EXAM DATE: 02/22/2018 9:06 AM EDT AGE/SEX: 42 years / Male INDICATIONS: Chest pain. CLINICAL DATA: This is the patient's initial encounter. Patient reports that signs and symptoms have been present for 1 day and indicates a pain score of 3/10. MEDICAL/SURGICAL HISTORY: Lymphoma. None. RADIATION DOSE: 9.84 CTDI (mGy) COMPARISON: No prior [place] exams available for comparison. TECHNIQUE: Volumetric scanning was performed using a multi-row detector CT scanner during bolus infu rachael of 73 ml Omnipaque 350 (iohexol) nonionic water-soluble contrast as a single exam dose. The patsy a was post processed with a variety of visualization algorithms including full volume maximum intensi ty projection and sliding thin slab reformation. Using automated exposure control and adjustment of the mA and/or kV according to patient size, radiation dose was kept as low as reasonably achievable t o obtain optimal diagnostic quality images. FINDINGS: Pulmonary Arteries: No filling defects are seen in the pulmonary arteries out to the subsegmental ve ssels. The left and right pulmonary arteries are normal in diameter. Lung: A few subpleural nodular densities are seen in both hemithoraces, the largest in the right low er lobe posteriorly measuring approximately 6.5 mm in diameter. Linear scarring or atelectasis in the left lingula. Effusion: None. Mediastinum: No evidence of mediastinal or hilar adenopathy. There are normal-sized prevascular and left paratracheal lymph nodes. Other: The axilla is unremarkable. CONCLUSION: 1. No pulmonary embolus or acute infiltrate to explain current clinical symptoms. 2. Nonspecific subpleural nodules and left lingular atelectasis/scarring. Findings may be postinflam matory but I would recommend a follow-up noncontrasted CT scan of the chest in 6 months to ensure sta bility, especially if the patient has a smoking history. 3. Small mediastinal and axillary lymph nodes, all normal by size criteria Electronically signed by: Kameron Garcia MD 02/22/2018 9:28 AM EDT
--- NOTE | 2018-02-22 09:34 | EKG ---
Date Performed: 02/21/2018 Time Performed: 22:15:17 PTAGE: 42 years EKG: Sinus rhythm INDETERMINATE AXIS ATYPICAL ECG PREVIOUS TRACING : 05/21/2017 11.17 Since the previous tracing, no significant change noted DOCTOR: Yossi Knott Interpretating Date/Time 02/22/2018 09:32:41
[2018-02-22] MEDS: DOCUSATE SODIUM 50 MG/SENNA 8.6 MG TAB PO SCH ×2 (10:26→21:00)
[2018-02-22] MEDS: PANTOPRAZOLE SOD 40 MG DELAYED RELEASE TAB PO SCH (10:26)
[2018-02-22] MEDS: SULFAMETHOXAZOLE-TRIMETHOPRIM DS 800-160 MG TAB PO SCH (10:27)
[2018-02-22] MEDS: TENOFOVIR DISOPROXIL FUMARATE 300 MG TAB PO SCH ×2 (10:28→11:29)
[2018-02-22] MEDS: FLUCONAZOLE 100 MG TAB PO SCH (10:28)
[2018-02-22] MEDS: SODIUM CHLORIDE 0.9% FLUSH 10 ML FLUSH IV FLUSH SCH ×2 (10:30→21:00)
[2018-02-22] MEDS: HEPARIN SODIUM - SQ 10,000 UNITS/ML VIAL SQ SCH ×2 (10:30→21:00)
[2018-02-22 11:21] VITALS: BP 122/78; PULSE 73; RESP 20; TEMP 97.5; O2SAT 100
[2018-02-22] MEDS: SODIUM CHLOR 0.9% 1000 ML INJ 1,000 ML IV SCH ×2 (11:26→21:51)
[2018-02-22] MEDS: MORPHINE SULFATE 4 MG/ML INJ IV PUSH PRN ×3 (11:26→23:25)
[2018-02-22] MEDS: CEFEPIME INJ 1,000 MG in SODIUM CHLORIDE 0.9% INJ 100 ML IV SCH ×2 (11:27→23:24)
[2018-02-22 12:02] LABS: BICARBONATE 23.9 MEQ/L (21.0-32.0); CALCIUM 8.2 MG/DL (8.5-10.1); CREATININE 0.72 MG/DL (0.60-1.30)
[2018-02-22 12:03] LABS: CHOLESTEROL 148 MG/DL (120-200)
[2018-02-22 12:06] LABS: CHOLESTEROL/ HDL RATIO 3.54 RATIO; HDL CHOLESTEROL 41.8 MG/DL (40.0-60.0); LDL CHOLESTEROL 82 MG/DL (0-99); TRIGLYCERIDES 122 MG/DL (42-150); TROPONIN I LESS THAN 0.02 NG/ML (0.02-0.05)
[2018-02-22 15:14] VITALS: BP 116/66; PULSE 75; RESP 18; TEMP 98.5; O2SAT 100
[2018-02-22] MEDS ORDERED: GADODIAMIDE PF 287 MG/ML 20 ML VIAL (for RAD MRI) IVCONTRAST ONE (16:03)
--- NOTE | 2018-02-22 16:16 | RADRPT ---
EXAM DATE: 02/22/2018 3:59 PM EDT AGE/SEX: 42 years / Male INDICATIONS: Cephalgia. CLINICAL DATA: This is the patient's initial encounter. Patient reports that signs and symptoms have been present for 2 days and indicates a pain score of 3/10. MEDICAL/SURGICAL HISTORY: Lymphoma. HIV. . [place], [place] COMPARISON: No prior [place] exams available for comparison. TECHNIQUE: 3D [id number] MRA was performed. Source images, multiplanar STS MIP, and 3D volum e MIP reconstructions were reviewed. FINDINGS: There is excellent visualization of the major intracranial arteries out to the second-order branch ve ssels. There is no evidence for aneurysm, vessel truncation or stenosis, and no evidence for vascula r malformation. CONCLUSION: Negative MRA [place] ([place] [facility] [place]) non contrast. Electronically signed by: Jose Ortez MD 02/22/2018 4:14 PM EDT
--- NOTE | 2018-02-22 16:24 | RADRPT ---
EXAM DATE: 02/22/2018 4:05 PM EDT AGE/SEX: 42 years / Male INDICATIONS: Cephalgia. CLINICAL DATA: This is the patient's initial encounter. Patient reports that signs and symptoms have been present for 2 days and indicates a pain score of 3/10. MEDICAL/SURGICAL HISTORY: Lymphoma. HIV. . [place] hole, [place] COMPARISON: [facility], CT BRAIN W/O CONTRAST, 02/21/2018. [facility], CT BRAIN W/O CONTRAST, 11/05/2016. . TECHNIQUE: Multiplanar, multisequence examination of the brain was performed without and with 18 ml O mniscan (gadodiamide) contrast as a single exam dose. FINDINGS: Cerebrum: The ventricles are normal. Right frontal ventricular catheter remains present with distal tip in the right frontal horn. There is stable increased FLAIR and T2 signal in the periventricular a nd subcortical white matter in the right frontal lobe adjacent to the catheter. No midline shift, ma ss lesion, hemorrhage or acute infarction. No extraaxial fluid collections are seen. The pituitary gland and suprasellar cistern are normal in configuration. White Matter: There is stable increased signal within the right frontal white matter. Posterior Fossa: The cerebellum and brainstem demonstrate no acute abnormality. The 4th ventricle is midline. The cerebellopontine angle is unremarkable. The cerebellar tonsils are normal in position . Diffusion Imaging: No focal areas of restricted diffusion are seen. No evidence of acute infarction . Extracranial: The visualized portions of the orbits and paranasal sinuses are unremarkable. Post Contrast: No abnormal areas of parenchymal or dural enhancement. No evidence of blood-brain ba rrier breakdown. CONCLUSION: 1. No acute intracranial abnormality is identified. 2. The right frontal ventricular catheter remains present and there is stable white matter signal ab normality in the right frontal lobe adjacent to the catheter. Electronically signed by: Jose Mathur MD 02/22/2018 4:23 PM EDT
[2018-02-22 16:26] LABS: HEMOGLOBIN A1C 6.1 % (4.3-6.0)
[2018-02-22] MEDS: FILGRASTIM 480 MCG/1.6 ML VIAL SQ SCH (19:03)
[2018-02-22 20:20] VITALS: BP 126/80; PULSE 84; RESP 16; TEMP 98.3; O2SAT 100
[2018-02-23] VITALS (10 sets, daily range): BP systolic 112–124; BP diastolic 66–83; PULSE 62–75; RESP 15–16; TEMP 97.1–98.5; O2SAT 98–100
--- NOTE | 2018-02-23 09:50 | PD.CONS ---
History of Present Illness Service Neurology Consult Requested By Hematology Reason for Consult Headache Primary Care Physician JOO Guadarrama History of Present Illness 42-year-old male with PMH of Burkitt's Lymphoma and HIV who presented to the ER with complaints of chest pain x2-3 days. 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 rt sided throbbing headache with mild photo/phonophobia. no loc. not the worst oswald of his life. mild n/v but able to tolerate po. states he was told he had an aneurysm in [facility] and had surgery done with "catherine holes" but nothing for the aneurysm in . he does get these headaches from time to time. CT Head with no acute findings. MRI brain scan did not show any acute lesion. MRA [place] no vaso- occlusive disease. Review of Systems Except as stated in HPI: all other systems reviewed are Neg Past Family Social History Past Medical History PMH: Burkitt's Lymphoma and HIV Past Surgical History PAST SURGICAL HISTORY: Bur hole Allergies: Coded Allergies: albuterol (Verified Allergy, Intermediate, Hives, 02/04/18) shortness of breath Family History No history of stroke seizure Social History PAST SOCIAL HISTORY: Occasional alcohol. Positive for tobacco. + Marijuana. Review of Systems All other ROS: ROS reviewed as documented in chart Past Family Social History Allergies: Coded Allergies: albuterol (Verified Allergy, Intermediate, Hives, 02/04/18) shortness of breath Active Ordered Medications Current Medications Medications (Trade) Dose Ordered Sig/Braulio Route Start Time Stop Time Status Last Admin Cefepime HCl 1000 mg/Sodium Chloride 100 ml @ 200 mls/hr Q12H IV 02/22/18 12:00 02/22/18 23:24 (NS Flush) 2 ml UNSCH PRN IV FLUSH 02/22/18 01:00 (NS Flush) 2 ml BID IV FLUSH 02/22/18 09:00 02/22/18 10:30 (Reglan Inj) 5 mg Q6H PRN IV PUSH 02/22/18 01:00 (Heparin Inj) 5,000 units Q12H SQ 02/22/18 09:00 02/22/18 10:30 (Tylenol) 650 mg Q6H PRN PO 02/22/18 01:00 ([place] 5-325 Mg) 1 tab Q4H PRN PO 02/22/18 01:00 (Morphine Inj) 2 mg Q3H PRN IV PUSH 02/22/18 01:00 02/22/18 23:25 ([place]-Colace) 1 tab BID PO 02/22/18 09:00 02/22/18 10:26 (Milk Of Magnesia Liq) 30 ml Q12H PRN PO 02/22/18 01:00 (Senokot) 17.2 mg Q12H PRN PO 02/22/18 01:00 (Dulcolax Supp) 10 mg DAILY PRN RECTAL 02/22/18 01:00 (Lactulose Liq) 30 ml DAILY PRN PO 02/22/18 01:00 (Zithromax) 1,200 mg Q7D PO 02/22/18 01:00 02/22/18 01:29 (Prezista) 600 mg BID PO 02/22/18 09:00 02/22/18 11:28 (Diflucan) 200 mg DAILY PO 02/22/18 09:00 02/22/18 10:28 (Protonix) 40 mg DAILY PO 02/22/18 09:00 02/22/18 10:26 (Norvir) 100 mg BID PO 02/22/18 09:00 02/22/18 21:50 (Bactrim Ds 800-160 Mg) 1 tab DAILY PO 02/22/18 09:00 02/22/18 10:27 (Viread) 300 mg DAILY PO 02/22/18 09:00 02/22/18 11:29 Sodium Chloride 1,000 ml @ 100 mls/hr Q10H IV 02/22/18 09:30 02/22/18 21:51 (Neupogen Inj) 480 mcg DAILY@14 SQ 02/22/18 18:00 02/22/18 19:03 Exam I&O / VS 02/23/18 02/23/18 02/24/18 15:00 23:00 07:00 Intake Total 1000 ml Balance 1000 ml IV Total 1000 ml # Voids 1 Vital Signs Date Time Temp Pulse Resp B/P (MAP) Pulse Ox O2 Delivery O2 Flow Rate FiO2 02/23/18 03:32 98.5 68 16 124/68 (86) 98 02/23/18 00:29 98.4 75 16 122/69 (86) 100 02/22/18 20:20 98.3 84 16 126/80 (95) 100 02/22/18 15:14 98.5 75 18 116/66 (83) 100 02/22/18 11:21 97.5 73 20 122/78 (93) 100 General: Alert and Oriented Eye: EOMI Respiratory: Non-labored respirations Musculoskeletal: ROM Neurologic: Alert, Oriented, Normal motor, No focal defects, CN II-XII intact Psychiatric: Cooperative, Appropriate mood & affect Exam Comments sitting up looks comfortable, finishing his breakfast, ox 3, no aphasia, conversates well. eomi, face sym, no drift Review/Management Diagnosis/Plan: (1) Migraine ICD Codes: G43.909 - Migraine, unspecified, not intractable, without status migrainosus Status: Acute Plan: suspect migraine mri/mra brain negative afebrile but has leukopenia recs will check cta's to r/o incidental aneurysm, however, headache pattern more suspect of migraine pain control records from [facility] if possible needs f/u with his hiv md and onc (2) Burkitt lymphoma ICD Codes: C83.70 - Burkitt lymphoma, unspecified site Status: Chronic (3) HIV (human immunodeficiency virus infection) ICD Codes: B20 - Human immunodeficiency virus [HIV] disease Status: Chronic Otilio Castellanos MD Feb 23, 2018 09:50
[2018-02-23] MEDS: RITONAVIR 100 MG TAB PO SCH ×2 (09:52→21:29)
[2018-02-23] MEDS: DARUNAVIR 600 MG TAB PO SCH ×2 (09:52→21:29)
[2018-02-23] MEDS: DOLUTEGRAVIR SODIUM 50 MG TAB PO SCH ×2 (09:52→21:29)
[2018-02-23] MEDS: SODIUM CHLOR 0.9% 1000 ML INJ 1,000 ML IV SCH ×2 (09:52→21:31)
[2018-02-23] MEDS: SODIUM CHLORIDE 0.9% FLUSH 10 ML FLUSH IV FLUSH SCH ×2 (09:52→21:00)
[2018-02-23] MEDS: HEPARIN SODIUM - SQ 10,000 UNITS/ML VIAL SQ SCH ×2 (09:53→21:29)
[2018-02-23] MEDS: PANTOPRAZOLE SOD 40 MG DELAYED RELEASE TAB PO SCH (09:53)
[2018-02-23] MEDS: DOCUSATE SODIUM 50 MG/SENNA 8.6 MG TAB PO SCH ×2 (09:53→21:30)
[2018-02-23] MEDS: SULFAMETHOXAZOLE-TRIMETHOPRIM DS 800-160 MG TAB PO SCH (09:53)
[2018-02-23] MEDS: FLUCONAZOLE 100 MG TAB PO SCH (09:53)
[2018-02-23] MEDS: ACETAMINOPHEN/HYDROcodone 325 MG/5 MG TAB PO PRN ×2 (10:10→13:38)
[2018-02-23] MEDS ORDERED: IOHEXOL 350 MG/ML 10 ML VIAL (for RAD DIAG) IVCONTRAST ONE (11:04)
[2018-02-23 11:22] LABS: AUTOMATED NEUTROPHIL # 0.6 TH/MM3 (1.8-7.7); BASOPHIL % 0.7 % (0.0-2.0); EOSINOPHIL # 0.4 TH/MM3 (0-0.4); EOSINOPHIL % 19.5 % (0.0-4.0); HEMATOCRIT 33.1 % (39.0-51.0); HEMOGLOBIN 10.6 GM/DL (13.0-17.0); LYMPH % 26.8 % (9.0-44.0); LYMPHOCYTE # 0.5 TH/MM3 (1.0-4.8); MEAN CELL VOLUME 96.4 FL (80.0-100.0); MEAN CORPUSCULAR HEMOGLOBIN 30.8 PG (27.0-34.0); MEAN PLATELET VOLUME 8.7 FL (7.0-11.0); MONO % 19.4 % (0.0-8.0); MONOCYTE # 0.4 TH/MM3 (0-0.9); NEUT % 33.6 % (16.0-70.0); PLATELET COUNT 121 TH/MM3 (150-450); RED BLOOD COUNT 3.43 MIL/MM3 (4.50-5.90); RED CELL DISTRIBUTION WIDTH 15.4 % (11.6-17.2); WHITE BLOOD COUNT 1.8 TH/MM3 (4.0-11.0)
[2018-02-23 11:33] LABS: ALBUMIN 3.1 GM/DL (3.4-5.0); ALT (GPT) 15 U/L (12-78); AST (GOT) 17 U/L (15-37); BICARBONATE 26.4 MEQ/L (21.0-32.0); BLOOD UREA NITROGEN 13 MG/DL (7-18); CHLORIDE 109 MEQ/L (98-107); GLOMERULAR FILTRATION RATE 113 ML/MIN (>89); GLUCOSE,RANDOM 107 MG/DL (74-106); SODIUM (NA) 141 MEQ/L (136-145)
[2018-02-23 11:35] LABS: ALKALINE PHOSPHATASE 64 U/L (45-117); TOTAL BILIRUBIN ADULT 0.4 MG/DL (0.2-1.0); TOTAL PROTEIN 6.4 GM/DL (6.4-8.2)
--- NOTE | 2018-02-23 11:42 | RADRPT ---
EXAM DATE: 02/23/2018 10:57 AM EDT AGE/SEX: 42 years / Male INDICATIONS: Possible aneurysm. CLINICAL DATA: This is the patient's initial encounter. Patient reports that signs and symptoms have been present for 1 day and indicates a pain score of 0/10. MEDICAL/SURGICAL HISTORY: HIV. Barkett's lymphoma None. RADIATION DOSE: 56.35 CTDI (mGy) COMPARISON: [facility] [place], CT BRAIN W/O CONTRAST, 02/21/2018. . TECHNIQUE: CT of the head without contrast. Using automated exposure control and adjustment of the mA and/or kV according to patient size, radiation dose was kept as low as reasonably achievable to ob tain optimal diagnostic quality images. FINDINGS: Cerebrum: Right-sided ventriculostomy catheters in good position. Stable hypodensity in the white mat ter tracts of the right frontal lobe unchanged. The ventricles are normal for age. No evidence of mi dline shift, mass lesion, hemorrhage or acute infarction. No extraaxial fluid collections are seen. Posterior Fossa: The cerebellum and brainstem are intact. The 4th ventricle is midline. The cerebe llopontine angle is unremarkable. Extracranial: The visualized portion of the orbits is intact. Skull: The calvaria is intact. No evidence of skull fracture. CONCLUSION: 1. Stable appearance the CT. Right frontal Ventriculostomy catheter remains in excellent position. S table hypodensity in the right frontal deep white matter tracts unchanged Electronically signed by: Ruperto Nassar MD 02/23/2018 11:40 AM EDT
--- NOTE | 2018-02-23 11:43 | RADRPT ---
EXAM DATE: 02/23/2018 11:35 AM EDT AGE/SEX: 42 years / Male INDICATIONS: Possible aneurysm. CLINICAL DATA: This is the patient's initial encounter. Patient reports that signs and symptoms have been present for 1 day and indicates a pain score of 0/10. MEDICAL/SURGICAL HISTORY: HIV. Barkett's lymphoma None. RADIATION DOSE: 10.34 CTDI (mGy) ; Combined studies COMPARISON: No prior [facility] exams available for comparison. TECHNIQUE: Volumetric scanning was performed using a multi-row detector CT scanner during bolus infu rachael of 75 ml Omnipaque 350 (iohexol) nonionic water-soluble contrast as a cumulative dose for multi ple exams. The data was post processed with a variety of visualization algorithms including full vo lume maximum intensity projection, multi-planar sliding thin slab reformation, curved planar reformat ion, and surface rendering techniques. Using automated exposure control and adjustment of the mA and /or kV according to patient size, radiation dose was kept as low as reasonably achievable to obtain o ptimal diagnostic quality images. FINDINGS: There is excellent visualization of the major intracranial arteries out to the second-order branch ve ssels. There is no evidence for aneurysm, vessel truncation or stenosis, and no evidence for vascula r malformation. The basilar artery and the right posterior cerebral artery are quite small. CONCLUSION: 1. No aneurysms identified. The posterior circulation does appear to be somewhat small Electronically signed by: Ruperto Nassar MD 02/23/2018 11:42 AM EDT
[2018-02-23 12:13] LABS: BANDS 12 % (0-6); LYMPHOCYTES 29 % (9-44); MONOCYTES 13 % (0-8); NEUTROPHIL # MANUAL DIFF 0.8 TH/MM3 (1.8-7.7); POLYS (SEG NEUTROPHILS) 35 % (16-70)
[2018-02-23 12:14] LABS: OVALOCYTES 1+ (NORMAL)
[2018-02-23] MEDS: CEFEPIME INJ 1,000 MG in SODIUM CHLORIDE 0.9% INJ 100 ML IV SCH ×2 (12:23→23:57)
--- NOTE | 2018-02-23 12:49 | RADRPT ---
EXAM DATE: 02/23/2018 11:44 AM EDT AGE/SEX: 42 years / Male INDICATIONS: Possible aneurysm. CLINICAL DATA: This is the patient's initial encounter. Patient reports that signs and symptoms have been present for 1 day and indicates a pain score of 0/10. MEDICAL/SURGICAL HISTORY: HIV. Barkett's lymphoma. None. RADIATION DOSE: 10.34 CTDI (mGy) ; Combined studies COMPARISON: No prior [place] exams available for comparison. TECHNIQUE: Volumetric scanning was performed using a multirow detector CT scanner during bolus infus ion of 75 ml Omnipaque 350 (iohexol) nonionic water-soluble contrast as a cumulative dose for multip le exams. The data was postprocessed with a variety of visualization algorithms including full-volu me maximum intensity projection, multiplanar sliding thin-slab reformation, curved-planar reformation , and surface-rendering techniques. Using automated exposure control and adjustment of the mA and/or kV according to patient size, radiation dose was kept as low as reasonably achievable to obtain opti mal diagnostic quality images. Elevated flow velocities and ICA/CCA ratios have been found to correlate with increased degrees of ve ssel stenosis, calculated as percentage of diameter relative to a normal segment of distal ICA/CCA. FINDINGS: Aortic Arch: There is a three-vessel origin of the great vessels from the aorta. No evidence of ost ial narrowing Right Carotid: The common carotid artery is intact. The carotid bulb has a normal configuration wit hout ulceration or narrowing. The internal carotid artery lumen is smooth without stenosis. The ext ernal carotid artery is intact. Left Carotid: The common carotid artery is intact. The carotid bulb has a normal configuration with out ulceration or narrowing. The internal carotid artery lumen is smooth without stenosis. The exte rnal carotid artery is intact. Vertebrals: The vertebral arteries have a symmetric diameter. No stenotic lesions are seen. 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
[2018-02-23] MEDS: FILGRASTIM 480 MCG/1.6 ML VIAL SQ SCH (13:38)
[2018-02-23] MEDS ORDERED: EUCERIN CREAM 120 GM JAR TOPICAL PRN (14:00)
--- NOTE | 2018-02-23 14:06 | PD.ONC.PN ---
Subjective Subjective Remarks Afebrile overnight. Patient complaining of headache present on right side of his head, pulsating in character and present x 2-3 days. He states the pain is worsened by light with improvement with [place] or morphine. no nausea or vomiting. appetite okay. no report of neck pain. Objective Data Date Time Temp Pulse Resp B/P (MAP) Pulse Ox O2 Delivery O2 Flow Rate FiO2 02/23/18 13:29 97.7 62 15 122/68 (86) 100 02/23/18 12:25 98.0 67 16 112/68 (83) 100 02/23/18 09:59 97.6 70 16 116/66 (83) 100 02/23/18 07:48 63 02/23/18 03:32 98.5 68 16 124/68 (86) 98 02/23/18 00:29 98.4 75 16 122/69 (86) 100 02/22/18 20:20 98.3 84 16 126/80 (95) 100 02/22/18 15:14 98.5 75 18 116/66 (83) 100 02/23/18 02/23/18 02/23/18 07:00 15:00 23:00 Intake Total 1000 ml Balance 1000 ml Result Diagram: 02/23/18 1058 02/23/18 1058 Laboratory Results Laboratory Tests Test 02/22/18 18:10 02/23/18 10:58 Troponin I LESS THAN 0.02 NG/ML White Blood Count 1.8 TH/MM3 Red Blood Count 3.43 MIL/MM3 Hemoglobin 10.6 GM/DL Hematocrit 33.1 % Mean Corpuscular Volume 96.4 FL Mean Corpuscular Hemoglobin 30.8 PG Mean Corpuscular Hemoglobin Concent 32.0 % Red Cell Distribution Width 15.4 % Platelet Count 121 TH/MM3 Mean Platelet Volume 8.7 FL Neutrophils (%) (Auto) 33.6 % Lymphocytes (%) (Auto) 26.8 % Monocytes (%) (Auto) 19.4 % Eosinophils (%) (Auto) 19.5 % Basophils (%) (Auto) 0.7 % Neutrophils # (Auto) 0.6 TH/MM3 Lymphocytes # (Auto) 0.5 TH/MM3 Monocytes # (Auto) 0.4 TH/MM3 Eosinophils # (Auto) 0.4 TH/MM3 Basophils # (Auto) 0.0 TH/MM3 CBC Comment AUTO DIFF Differential Total Cells Counted 100 Neutrophils % (Manual) 35 % Band Neutrophils % 12 % Lymphocytes % 29 % Monocytes % 13 % Eosinophils % 11 % Neutrophils # (Manual) 0.8 TH/MM3 Differential Comment FINAL DIFF MANUAL Atypical Lymphocytes % Platelet Estimate LOW Platelet Morphology Comment ENLARGED Ovalocytes 1+ Blood Urea Nitrogen 13 MG/DL Creatinine 0.90 MG/DL Random Glucose 107 MG/DL Total Protein 6.4 GM/DL Albumin 3.1 GM/DL Calcium Level 8.0 MG/DL Uric Acid 4.7 MG/DL Alkaline Phosphatase 64 U/L Aspartate Amino Transf (AST/SGOT) 17 U/L Alanine Aminotransferase (ALT/SGPT) 15 U/L Lactate Dehydrogenase 169 U/L Total Bilirubin 0.4 MG/DL Sodium Level 141 MEQ/L Potassium Level 3.9 MEQ/L Chloride Level 109 MEQ/L Carbon Dioxide Level 26.4 MEQ/L Anion Gap 6 MEQ/L Estimat Glomerular Filtration Rate 113 ML/MIN Culture Results Microbiology Date/Time Source Procedure Growth Status 02/22/18 00:18 Blood Peripheral Aerobic Blood Culture - Preliminary NO GROWTH IN 1 DAY Resulted 02/22/18 00:18 Blood Peripheral Anaerobic Blood Culture - Preliminary NO GROWTH IN 1 DAY Resulted 02/22/18 00:13 Blood Peripheral Aerobic Blood Culture - Preliminary NO GROWTH IN 1 DAY Resulted 02/22/18 00:13 Blood Peripheral Anaerobic Blood Culture - Preliminary NO GROWTH IN 1 DAY Resulted 02/21/18 23:05 Throat Group A Streptococcus Screen - Final NO GP A BETA STREP ISOLATED. Complete 02/21/18 23:05 Throat Group A Streptococcus Screen (SHAILESH) - Final Complete Imaging Studies Last 24 hours Impressions Neck CTA 02/23/18 0000 Signed Impressions: CONCLUSION: Normal carotids Head CTA 02/23/18 0000 Signed Impressions: CONCLUSION: 1. No aneurysms identified. The posterior circulation does appear to be somewh at small Head CT 02/23/18 0000 Signed Impressions: CONCLUSION: 1. Stable appearance the CT. Right frontal Ventriculostomy catheter remains in excellent position. Stable hypodensity in the right frontal deep white matter tracts unchanged Administered Medications Medications (Trade) Dose Ordered Sig/Braulio Route PRN Reason Start Time Stop Time Status Last Admin Dose Admin Cefepime HCl 1000 mg/Sodium Chloride 100 ml @ 200 mls/hr Q12H IV 02/22/18 12:00 02/23/18 12:23 Sodium Chloride (NS Flush) 2 ml BID IV FLUSH 02/22/18 09:00 02/23/18 09:52 Heparin Sodium (Porcine) (Heparin Inj) 5,000 units Q12H SQ 02/22/18 09:00 02/22/18 10:30 Acetaminophen/ Hydrocodone Bitart ([place] 5-325 Mg) 1 tab Q4H PRN PO PAIN SCALE 3 TO 5 02/22/18 01:00 02/23/18 13:38 Morphine Sulfate (Morphine Inj) 2 mg Q3H PRN IV PUSH Pain 6-10 02/22/18 01:00 02/22/18 23:25 Senna/Docusate Sodium ([place]-Colace) 1 tab BID PO 02/22/18 09:00 02/22/18 10:26 Lactulose (Lactulose Liq) 30 ml DAILY PRN PO SEVERE CONSITIPATION 02/22/18 01:00 02/23/18 13:37 Azithromycin (Zithromax) 1,200 mg Q7D PO 02/22/18 01:00 02/22/18 01:29 Darunavir (Prezista) 600 mg BID PO 02/22/18 09:00 02/23/18 09:52 Fluconazole (Diflucan) 200 mg DAILY PO 02/22/18 09:00 02/23/18 09:53 Pantoprazole Sodium (Protonix) 40 mg DAILY PO 02/22/18 09:00 02/23/18 09:53 Ritonavir (Norvir) 100 mg BID PO 02/22/18 09:00 02/23/18 09:52 Trimethoprim/ Sulfamethoxazole (Bactrim Ds 800-160 Mg) 1 tab DAILY PO 02/22/18 09:00 02/23/18 09:53 Tenofovir Disoproxil Fumarate (Viread) 300 mg DAILY PO 02/22/18 09:00 02/22/18 11:29 Sodium Chloride 1,000 ml @ 100 mls/hr Q10H IV 02/22/18 09:30 02/23/18 09:52 Filgrastim (Neupogen Inj) 480 mcg DAILY@14 SQ 02/22/18 18:00 02/23/18 13:38 Objective Remarks GENERAL: Middle aged male, sitting up in bed in nad. SKIN: Warm and dry. HEAD: Normocephalic. EYES: No injection or drainage. NECK: Supple, trachea midline. moves neck freely. CARDIOVASCULAR: Regular rate and rhythm RESPIRATORY: Breath sounds equal bilaterally. No accessory muscle use. GASTROINTESTINAL: Abdomen soft, non-tender, nondistended. EXTREMITIES: No cyanosis NEUROLOGICAL: awake and alert. normal speech. moving extremities freely. Assessment/Plan Problem List: (1) Pancytopenia ICD Codes: D61.818 - Other pancytopenia Plan: --likely d/t non-compliance with HIV medications --CD4 count =29 --started on Neupogen inpatient. --on Bactrim + Diflucan (2) Burkitt lymphoma ICD Codes: C83.70 - Burkitt lymphoma, unspecified site Status: Acute Plan: --diagnosed with Burkitt's lymphoma in 06/2014. --treated with modified Magrath regimen with intrathecal chemotherapy at [facility]. --> went into remission and on observation (3) Pneumonia ICD Codes: J18.9 - Pneumonia, unspecified organism Status: Acute Plan: --on cefepime. Assessment 42y/o male with Burkitt's lymphoma. h/o HIV, chronic back pain. Subdural hematoma s/p catherine hole and evacuation in 2013 Problem Qualifiers (1) Pneumonia: Qualified Codes: J18.1 - Lobar pneumonia, unspecified organism Nuvia Rosales Feb 23, 2018 14:06 Jeni Owen MD Feb 26, 2018 16:45
--- NOTE | 2018-02-23 16:29 | HHI.PR ---
Subjective Remarks Follow up chest pain, pneumonia, headache. Patient denies chest pain, dyspnea. Headache is somewhat better with pain medication today. Objective Vitals Vital Signs Date Time Temp Pulse Resp B/P (MAP) Pulse Ox O2 Delivery O2 Flow Rate FiO2 02/23/18 13:29 97.7 62 15 122/68 (86) 100 02/23/18 12:25 98.0 67 16 112/68 (83) 100 02/23/18 09:59 97.6 70 16 116/66 (83) 100 02/23/18 07:48 63 02/23/18 03:32 98.5 68 16 124/68 (86) 98 02/23/18 00:29 98.4 75 16 122/69 (86) 100 02/22/18 20:20 98.3 84 16 126/80 (95) 100 I/O 02/22/18 02/22/18 02/22/18 02/23/18 02/23/18 02/23/18 07:00 15:00 23:00 07:00 15:00 23:00 Intake Total 1100 ml 480 ml 240 ml 1000 ml Balance 1100 ml 480 ml 240 ml 1000 ml Intake Oral 480 ml 240 ml IV Total 1100 ml 1000 ml # Voids 4 2 # Bowel Movements 0 Result Diagram: 02/23/18 1058 02/23/18 1058 Imaging Last Impressions Neck CTA 02/23/18 0000 Signed Impressions: CONCLUSION: Normal carotids Head CTA 02/23/18 0000 Signed Impressions: CONCLUSION: 1. No aneurysms identified. The posterior circulation does appear to be somewh at small Head CT 02/23/18 0000 Signed Impressions: CONCLUSION: 1. Stable appearance the CT. Right frontal Ventriculostomy catheter remains in excellent position. Stable hypodensity in the right frontal deep white matter tracts unchanged Head Magnetic Resonance Angiography 02/22/18 0000 Signed Impressions: CONCLUSION: Negative MRA Cow ([place] of [place]) non contrast. CT Angiography 02/22/18 0000 Signed Impressions: CONCLUSION: 1. No pulmonary embolus or acute infiltrate to explain current clinical sympto ms. 2. Nonspecific subpleural nodules and left lingular atelectasis/scarring. Find ings may be postinflammatory but I would recommend a follow-up noncontrasted CT scan of the chest in 6 months to ensure stability, especially if the patient h as a smoking history. 3. Small mediastinal and axillary lymph nodes, all normal by size criteria Brain MRI 02/22/18 0000 Signed Impressions: CONCLUSION: 1. No acute intracranial abnormality is identified. 2. The right frontal ventricular catheter remains present and there is stable white matter signal abnormality in the right frontal lobe adjacent to the lis ter. Chest X-Ray 02/21/18 2221 Signed Impressions: CONCLUSION: Multiple streakiness within the left lung base consistent with atelectasis and/ or minimal infiltrate. Clinical correlation is recommended. Objective Remarks General: No acute distress. Heart: Regular rate and rhythm. No murmur. Lungs: Clear to auscultation bilaterally. No wheezes, rales, or rhonchi. Breathing is nonlabored. Abdomen: Soft, nontender, nondistended. Extremities: No lower extremity edema. Psych: Alert and oriented. Neuro: Normal speech. No focal deficits noted. Skin: Excoriations on scalp, neck, back. Procedures None Urinary Catheter: No Vascular Central Line Catheter: No A/P Problem List: (1) PNA (pneumonia) ICD Code: J18.9 - Pneumonia, unspecified organism (2) Chest pain ICD Code: R07.9 - Chest pain, unspecified (3) Burkitt lymphoma ICD Code: C83.70 - Burkitt lymphoma, unspecified site Status: Chronic (4) HIV (human immunodeficiency virus infection) ICD Code: B20 - Human immunodeficiency virus [HIV] disease Status: Chronic Assessment and Plan 1. Pneumonia in an immunocompromised patient: Continue cefepime, azithromycin. Blood cultures are negative so far. Oxygen as needed. DuoNeb as needed. 2. Pancytopenia: Appreciate hematology/oncology recommendations. Patient has history of Burkitt's lymphoma. Started on Neupogen. 3. Atypical chest pain: Serial cardiac enzymes are negative. Monitor on telemetry. Chest pain has resolved. 4. Headache: Patient has history of subdural hematoma status post bur hole and evacuation in 2013. Headache is slightly better today after receiving pain medication. Appreciate neurology recommendations. Head CT, MRI/MRA do not show acute cause of pain. Per neurology, likely migraine headache. 5. DVT prophylaxis: SCDs, CHAVA toro. Discharge Planning Possible discharge home soon pending further workup. Eladio Dowd MD Feb 23, 2018 16:29
--- NOTE | 2018-02-23 17:06 | EKG ---
Date Performed: 02/22/2018 Time Performed: 12:39:25 PTAGE: 42 years EKG: Sinus rhythm NORMAL ECG Since the previous tracing, no significant change noted NO PREVIOUS TRACING DOCTOR: Nevin Rowe Interpretating Date/Time 02/23/2018 17:04:11
[2018-02-24] VITALS: BP 126/83; PULSE 77; RESP 18; TEMP 98.1; O2SAT 96
[2018-02-24 00:05] VITALS: PULSE 69
[2018-02-24] MEDS ORDERED: diphenhydrAMINE HCL 25 MG CAP PO ONE (01:15)
[2018-02-24] MEDS: SODIUM CHLOR 0.9% 1000 ML INJ 1,000 ML IV SCH (01:30)
[2018-02-24 04:23] VITALS: PULSE 65
[2018-02-24 04:53] VITALS: BP 113/64; PULSE 68; RESP 16; TEMP 98; O2SAT 99
[2018-02-24 07:48] VITALS: BP 130/81; PULSE 75; RESP 16; TEMP 98.3; O2SAT 100
--- NOTE | 2018-02-24 08:09 | HHI.PR ---
Subjective Remarks Follow up for neutropenic fever, pneumonia, HIV. Patient is currently doing well , on room air. Tolerating diet well. No fever but reports some chills. Wants to go home. Objective Vitals Vital Signs Date Time Temp Pulse Resp B/P (MAP) Pulse Ox O2 Delivery O2 Flow Rate FiO2 02/24/18 07:48 98.3 75 16 130/81 (97) 100 02/24/18 04:53 98.0 68 16 113/64 (80) 99 02/24/18 04:23 65 02/24/18 00:05 69 02/24/18 00:00 98.1 77 18 126/83 (97) 96 02/23/18 20:33 97.9 71 16 124/83 (97) 100 02/23/18 20:04 71 02/23/18 17:11 63 02/23/18 17:00 97.1 63 16 122/82 (95) 100 02/23/18 13:29 97.7 62 15 122/68 (86) 100 02/23/18 12:25 98.0 67 16 112/68 (83) 100 02/23/18 09:59 97.6 70 16 116/66 (83) 100 I/O 02/23/18 02/23/18 02/23/18 02/24/18 02/24/18 02/24/18 07:00 15:00 23:00 07:00 15:00 23:00 Intake Total 1100 ml 240 ml Balance 1100 ml 240 ml Intake Oral 240 ml IV Total 1100 ml # Voids 2 3 Result Diagram: 02/23/18 1058 02/23/18 1058 Imaging Last Impressions Neck CTA 02/23/18 0000 Signed Impressions: CONCLUSION: Normal carotids Head CTA 02/23/18 0000 Signed Impressions: CONCLUSION: 1. No aneurysms identified. The posterior circulation does appear to be somewh at small Head CT 02/23/18 0000 Signed Impressions: CONCLUSION: 1. Stable appearance the CT. Right frontal Ventriculostomy catheter remains in excellent position. Stable hypodensity in the right frontal deep white matter tracts unchanged Head Magnetic Resonance Angiography 02/22/18 0000 Signed Impressions: CONCLUSION: Negative MRA Cow ([place] of [place]) non contrast. CT Angiography 02/22/18 0000 Signed Impressions: CONCLUSION: 1. No pulmonary embolus or acute infiltrate to explain current clinical sympto ms. 2. Nonspecific subpleural nodules and left lingular atelectasis/scarring. Find ings may be postinflammatory but I would recommend a follow-up noncontrasted CT scan of the chest in 6 months to ensure stability, especially if the patient h as a smoking history. 3. Small mediastinal and axillary lymph nodes, all normal by size criteria Brain MRI 02/22/18 0000 Signed Impressions: CONCLUSION: 1. No acute intracranial abnormality is identified. 2. The right frontal ventricular catheter remains present and there is stable white matter signal abnormality in the right frontal lobe adjacent to the lis ter. Chest X-Ray 02/21/18 2221 Signed Impressions: CONCLUSION: Multiple streakiness within the left lung base consistent with atelectasis and/ or minimal infiltrate. Clinical correlation is recommended. Objective Remarks GENERAL: AOx3, NAD. SKIN: Warm and dry. HEAD: Normocephalic. EYES: No scleral icterus. No injection or drainage. NECK: Supple, trachea midline. No JVD or lymphadenopathy. CARDIOVASCULAR: Regular rate and rhythm without murmurs, gallops, or rubs. RESPIRATORY: Breath sounds equal bilaterally. No accessory muscle use. GASTROINTESTINAL: Abdomen soft, non-tender, nondistended. MUSCULOSKELETAL: No cyanosis, or edema. BACK: Nontender without obvious deformity. No CVA tenderness. Procedures None A/P Problem List: (1) PNA (pneumonia) ICD Code: J18.9 - Pneumonia, unspecified organism (2) Chest pain ICD Code: R07.9 - Chest pain, unspecified (3) Burkitt lymphoma ICD Code: C83.70 - Burkitt lymphoma, unspecified site Status: Chronic (4) HIV (human immunodeficiency virus infection) ICD Code: B20 - Human immunodeficiency virus [HIV] disease Status: Chronic Tylor Soliz DO Feb 24, 2018 8:09 am
[2018-02-24] MEDS: SODIUM CHLORIDE 0.9% FLUSH 10 ML FLUSH IV FLUSH SCH (09:00)
[2018-02-24] MEDS: RITONAVIR 100 MG TAB PO SCH (09:00)
[2018-02-24] MEDS: FLUCONAZOLE 100 MG TAB PO SCH (09:00)
[2018-02-24] MEDS: HEPARIN SODIUM - SQ 10,000 UNITS/ML VIAL SQ SCH (09:00)
[2018-02-24] MEDS: PANTOPRAZOLE SOD 40 MG DELAYED RELEASE TAB PO SCH (09:00)
[2018-02-24] MEDS: TENOFOVIR DISOPROXIL FUMARATE 300 MG TAB PO SCH (09:00)
[2018-02-24] MEDS: SULFAMETHOXAZOLE-TRIMETHOPRIM DS 800-160 MG TAB PO SCH (09:00)
[2018-02-24] MEDS: DARUNAVIR 600 MG TAB PO SCH (09:00)
[2018-02-24] MEDS: DOLUTEGRAVIR SODIUM 50 MG TAB PO SCH (09:00)
[2018-02-24] MEDS: DOCUSATE SODIUM 50 MG/SENNA 8.6 MG TAB PO SCH (09:00)
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
[2018-02-24 11:41] VITALS: BP 119/65; PULSE 66; RESP 20; TEMP 98.3; O2SAT 100
[2018-02-24] MEDS ORDERED: LEVA750T9 PO (12:13)
[2018-02-24] MEDS: FILGRASTIM 480 MCG/1.6 ML VIAL SQ SCH (12:24)
--- NOTE | 2018-02-24 13:47 | HHI.DS ---
Discharge Summary Admission Date Feb 22, 2018 at 12:56 am Discharge Date: Feb 24, 2018 Admitting Diagnosis Pneumonia, neutropenia (1) PNA (pneumonia) ICD Code: J18.9 - Pneumonia, unspecified organism (2) Chest pain ICD Code: R07.9 - Chest pain, unspecified (3) Burkitt lymphoma ICD Code: C83.70 - Burkitt lymphoma, unspecified site Status: Chronic (4) HIV (human immunodeficiency virus infection) ICD Code: B20 - Human immunodeficiency virus [HIV] disease Status: Chronic Procedures None Brief History - From Admission This is a 42-year-old male with PMH of Burkitt's Lymphoma and HIV who presented to the ER with complaints of chest pain x2-3 days. Reports pain is substernal/ epigastric, constant, burning, severe, 10/10, non-radiating. H/o HIV, does not know last CD4, intermittently compliant w/ HAART. Per review of records, last CD4 29 on 10/15/17. Following w/ Dr. Owen for Burkitt's Lymphoma, h/o Pancytopenia w/ transient improvement on HAART regimen at the time of last visit on 01/22/18. Denies fever, chills, cough or SOB. On arrival, BP 137/72, HR 90, O2 sat 99% RA, Afebrile. WBC 1.2, previously 1.6 on 10/20/2017. Hemoglobin 10.7, previously 9.2. Platelets 142, previously 121 on 10/20/2017. Chemistry essentially unremarkable except for creatinine 20. LFTs normal. Troponin negative. INR 1.0. CT Head with no acute findings. CXR mild streakiness left lung base. S/p Cefepime in ER. CBC/BMP: 02/23/18 1058 02/23/18 1058 Significant Findings Laboratory Tests Test 02/21/18 22:25 02/22/18 00:18 02/22/18 10:45 02/22/18 18:10 White Blood Count 1.2 TH/MM3 (4.0-11.0) Red Blood Count 3.44 MIL/MM3 (4.50-5.90) Hemoglobin 10.7 GM/DL (13.0-17.0) Hematocrit 32.7 % (39.0-51.0) Platelet Count 142 TH/MM3 (150-450) Lymphocytes % 48 % (9-44) Monocytes % 24 % (0-8) Eosinophils % 12 % (0-4) Neutrophils # (Manual) 0.2 TH/MM3 (1.8-7.7) Nucleated Red Blood Cells 4 /100 WBC (0-0) Platelet Estimate LOW (NORMAL) Ovalocytes 1+ (NORMAL) D-Dimer Quantitative (PE/DVT) 1.18 MG/L FEU (0.00-0.50) Urine Color DARK-YELLOW (YELLW/STRAW) Urine Turbidity HAZY (CLEAR) Urine Specific [place] 1.038 (1.002-1.035) Urine Protein 300 mg/dL (NEG-TRACE) Urine Ketones TRACE mg/dL (NEG) Urine Urobilinogen 4.0 MG/DL (LESS THAN Urine Mucus MOD /lpf (OCC) Blood Urea Nitrogen 20 MG/DL (7-18) Calcium Level 8.0 MG/DL (8.5-10.1) 8.2 MG/DL (8.5-10.1) Estimat Glomerular Filtration Rate 82 ML/MIN (>89) Troponin I LESS THAN 0.02 NG/ML LESS THAN 0.02 NG/ML LESS THAN 0.02 NG/ML Lactic Acid Level 0.3 mmol/L (0.4-2.0) Hemoglobin A1c 6.1 % (4.3-6.0) Test 02/23/18 10:58 White Blood Count 1.8 TH/MM3 (4.0-11.0) Red Blood Count 3.43 MIL/MM3 (4.50-5.90) Hemoglobin 10.6 GM/DL (13.0-17.0) Hematocrit 33.1 % (39.0-51.0) Platelet Count 121 TH/MM3 (150-450) Monocytes (%) (Auto) 19.4 % (0.0-8.0) Eosinophils (%) (Auto) 19.5 % (0.0-4.0) Neutrophils # (Auto) 0.6 TH/MM3 (1.8-7.7) Lymphocytes # (Auto) 0.5 TH/MM3 (1.0-4.8) Band Neutrophils % 12 % (0-6) Monocytes % 13 % (0-8) Eosinophils % 11 % (0-4) Neutrophils # (Manual) 0.8 TH/MM3 (1.8-7.7) Platelet Estimate LOW (NORMAL) Platelet Morphology Comment ENLARGED (NORMAL) Ovalocytes 1+ (NORMAL) Random Glucose 107 MG/DL (74-106) Albumin 3.1 GM/DL (3.4-5.0) Calcium Level 8.0 MG/DL (8.5-10.1) Chloride Level 109 MEQ/L (98-107) Imaging Last Impressions Neck CTA 02/23/18 Signed Impressions: CONCLUSION: Normal carotids Head CTA 02/23/18 Signed Impressions: CONCLUSION: 1. No aneurysms identified. The posterior circulation does appear to be somewh at small Head CT 02/23/18 Signed Impressions: CONCLUSION: 1. Stable appearance the CT. Right frontal Ventriculostomy catheter remains in excellent position. Stable hypodensity in the right frontal deep white matter tracts unchanged Head Magnetic Resonance Angiography 02/22/18 Signed Impressions: CONCLUSION: Negative MRA Cow ([place]) non contrast. CT Angiography 02/22/18 Signed Impressions: CONCLUSION: 1. No pulmonary embolus or acute infiltrate to explain current clinical sympto ms. 2. Nonspecific subpleural nodules and left lingular atelectasis/scarring. Find ings may be postinflammatory but I would recommend a follow-up noncontrasted CT scan of the chest in 6 months to ensure stability, especially if the patient h as a smoking history. 3. Small mediastinal and axillary lymph nodes, all normal by size criteria Brain MRI 02/22/18 Signed Impressions: CONCLUSION: 1. No acute intracranial abnormality is identified. 2. The right frontal ventricular catheter remains present and there is stable white matter signal abnormality in the right frontal lobe adjacent to the lis ter. Chest X-Ray 02/21/182220 Signed Impressions: CONCLUSION: Multiple streakiness within the left lung base consistent with atelectasis and/ or minimal infiltrate. Clinical correlation is recommended. PE at Discharge GENERAL: AOx3, NAD. SKIN: Warm and dry. HEAD: Normocephalic. EYES: No scleral icterus. No injection or drainage. NECK: Supple, trachea midline. No JVD or lymphadenopathy. CARDIOVASCULAR: Regular rate and rhythm without murmurs, gallops, or rubs. RESPIRATORY: Breath sounds equal bilaterally. No accessory muscle use. GASTROINTESTINAL: Abdomen soft, non-tender, nondistended. MUSCULOSKELETAL: No cyanosis, or edema. BACK: Nontender without obvious deformity. No CVA tenderness. Pt update on day of discharge Follow up for neutropenic fever, pneumonia, HIV. Patient is currently doing well , on room air. Tolerating diet well. No fever but reports some chills. Wants to go home. Hospital Course 42-year-old male with PMH of Burkitt's Lymphoma and HIV who presented to the ER with complaints of chest pain x2-3 days. Immunocompromised with PNA: CXR w/ mild left streakiness at base. Afebrile -Receieved antibiotics with IV Cefepime and po Azithro -Will continue Levaquin for 7 days upon discharge. -Blood cultures Negative -DuoNeb prn -O2 as needed, currently stable on room air Neutropenia - Received Neupogen in-patient. Atypical Chest Pain - Troponins negative. HIV: Intermittently compliant w/ meds, Last CD4 29 on 10/15/17 -resume HAART, resume prophylaxis. -RN reporting patient refusing HAART medications today. Continue outpatient follow up. Burkitt's Lymphoma: w/ h/o Pancytopenia, transiently improved while on HAART, now back to baseline. -Oncology consulted - recommended two week follow up with Dr. Owen. Headache: patient reporting 9/10 pain consistent with previous pain from aneurysms. -Head CT reviewed and unremarkable -brain MRI/MRA unremarkable for any acute findings. -Pain control as needed Full code. Pt Condition on Discharge: Good Discharge Disposition: Discharge Home Discharge Time: <= 30 minutes Discharge Instructions DIET: Follow Instructions for: Heart Healthy Diet Activities you can perform: Regular-No Restrictions Follow up Referrals: Oncology/Hematology - 2 Weeks with Jeni Owen MD PCP Follow-up - 1 Week New Medications: Levofloxacin (Levaquin) 750 Mg Tablet 750 MG PO DAILY for Infection, #7 TAB 0 Refills Continued Medications: Azithromycin (Azithromycin) 600 Mg Tab 1200 MG PO Q7D for Infection, TAB 0 Refills Darunavir (Prezista) 600 Mg Tab 600 MG PO BID for Mgmt Viral Infection, #60 TAB 0 Refills Dolutegravir (Tivicay) 50 Mg Tab 50 MG PO BID for Mgmt Viral Infection, #60 TAB 0 Refills Fluconazole (Diflucan) 100 Mg Tab 200 MG PO DAILY for infection , #14 TAB Gabapentin (Gabapentin) 100 Mg Cap 100 MG PO BID, #60 CAP 0 Refills Ipratropium Neb (Ipratropium Neb) 0.5 Mg/2.5 Ml Amp 0.5 MG NEB Q6HR NEB PRN for SHORTNESS OF BREATH, #1 BOX 0 Refills Lifitegrast Opth Drops (Xiidra Opth Drops) 5% Drops 1 DROP EACH EYE QOD for Dry Eye, #1 BOTTLE 0 Refills Lisinopril (Lisinopril) 5 Mg Tab 5 MG PO DAILY for Blood Pressure Management, #30 TAB 0 Refills Jwpsofzr-Bomqakgboqvfmkg-Gnakcgcyc Liq (Magic Mouthwash Adult Liq) 120 Ml Susp 10 ML SWISH-SWAL QID for Sore Throat, #1 BOTTLE Pantoprazole (Pantoprazole) 40 Mg Tab 40 MG PO DAILY for Reflux, #30 TAB Ritonavir (Norvir) 100 Mg Cap 100 MG PO BID for Mgmt Viral Infection, #180 CAP 0 Refills Sulfamethoxazole-Trimethoprim (Bactrim DS) 800-160 Mg Tab 1 TAB PO DAILY for Infection, #30 TAB 0 Refills take one tablet on Thursday, Thursday, Thursday Tenofovir disoproxil fumarate (Viread) 300 Mg Tab 300 MG PO DAILY for Mgmt Viral Infection, #30 TAB 0 Refills Tramadol (Tramadol) 50 Mg Tab 50 MG PO DAILY PRN for PAIN, TAB 0 Refills Discontinued Medications: Prednisone (Prednisone) 20 Mg Tab 40 MG PO DAILY for 5 Days, #10 TAB 0 Refills Tylor Soliz DO Feb 24, 2018 13:47
== END 2018-02-24 13:00 | disposition home or self-care (01) ==
LOC: NEPC 21:53 → NEDA 02-22 00:56 → NEPGCP 02-22 01:44 → HCIN 02-23 12:56
PROVIDERS: ADMIT Hospitalist; ATTEND Hospitalist
DX: J18.1 Lobar pneumonia, unspecified organism (principal); B20 Human immunodeficiency virus [HIV] disease; R07.9 Chest pain, unspecified; D70.9 Neutropenia, unspecified; C83.70 Burkitt lymphoma, unspecified site; G43.909 Migraine, unspecified, not intractable, without status migrainosus; J98.11 Atelectasis; F12.90 Cannabis use, unspecified, uncomplicated; F17.210 Nicotine dependence, cigarettes, uncomplicated; Z91.14 Patient's other noncompliance with medication regimen
CPT/HCPCS: 70450; 70496; 70498; 70544; 70553; 71045; 71275; 80048; 80053; 80061; 81001; 82550; 82552; 83036; 83605; 83615; 83690; 83735; 83880; 84484; 84550; 85007; 85027; 85379; 85610; 85730; 87040; 87081; 87880; 93005; 96361; 96365; 96366; 96372; 99285; A9579; G0378; J0692; J1644; J2270; J7030; Q9967; J1442

== ENCOUNTER 2018-03-15 15:28 | Inpatient (IN) | payer MEDICARE, MEDICAID ==
[~2018-03-15] VITALS: Ht 180.3 cm; Wt 93.9 kg
[~2018-03-15 15:28] MED LIST changes: +LEVA750T9 PO; -PRED20 PO
--- NOTE | 2018-03-15 16:06 | RADRPT ---
EXAM DATE: 03/15/2018 4:03 PM EDT AGE/SEX: 42 years / Male INDICATIONS: Left sided chest pain. CLINICAL DATA: This is the patient's initial encounter. Patient reports that signs and symptoms have been present for 4 - 6 days and indicates a pain score of 8/10. MEDICAL/SURGICAL HISTORY: None. None. COMPARISON: [facility] [place]ST PA & LAT, 10/13/2017. . FINDINGS: PA and lateral views of the chest demonstrate the lungs to be symmetrically aerated without evidence of mass, infiltrate or effusion. The cardiomediastinal contours are unremarkable. Osseous structures are intact. CONCLUSION: Negative for acute process Electronically signed by: Mick Blas MD 03/15/2018 4:05 PM EDT
[2018-03-15 16:32] LABS: AUTOMATED NEUTROPHIL # 0.2 TH/MM3 (1.8-7.7); BASOPHIL % 0.3 % (0.0-2.0); EOSINOPHIL # 0.4 TH/MM3 (0-0.4); EOSINOPHIL % 19.9 % (0.0-4.0); HEMATOCRIT 31.5 % (39.0-51.0); HEMOGLOBIN 10.3 GM/DL (13.0-17.0); LYMPHOCYTE # 0.6 TH/MM3 (1.0-4.8); MEAN CELL VOLUME 93.6 FL (80.0-100.0); MEAN CORPUSCULAR HEMOGLOBIN 30.6 PG (27.0-34.0); MEAN CORPUSCULAR HGB CONC 32.7 % (32.0-36.0); MONO % 34.1 % (0.0-8.0); MONOCYTE # 0.6 TH/MM3 (0-0.9); NEUT % 13.7 % (16.0-70.0); PLATELET COUNT 115 TH/MM3 (150-450); RED BLOOD COUNT 3.36 MIL/MM3 (4.50-5.90); RED CELL DISTRIBUTION WIDTH 15.3 % (11.6-17.2); WHITE BLOOD COUNT 1.8 TH/MM3 (4.0-11.0)
[2018-03-15 16:53] LABS: BICARBONATE 26.6 MEQ/L (21.0-32.0); BLOOD UREA NITROGEN 15 MG/DL (7-18); CALCIUM 8.1 MG/DL (8.5-10.1); CHLORIDE 105 MEQ/L (98-107); CREATININE 0.99 MG/DL (0.60-1.30); GLOMERULAR FILTRATION RATE 101 ML/MIN (>89); GLUCOSE,RANDOM 109 MG/DL (74-106); SODIUM (NA) 141 MEQ/L (136-145)
[2018-03-15 16:57] VITALS: BP 141/68; PULSE 91; RESP 20; O2SAT 100
[2018-03-15 16:57] LABS: TROPONIN I LESS THAN 0.02 NG/ML (0.02-0.05)
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
[2018-03-15 17:08] LABS: CORRECTED NUCLEATED RBC 1 /100 WBC (0-0); LYMPHOCYTES 27 % (9-44); METAMYELOCYTES 1 % (0-1); MONOCYTES 30 % (0-8); NUCLEATED RED BLOOD CELL 1 (0-0); POLYS (SEG NEUTROPHILS) 14 % (16-70)
[2018-03-15 17:11] LABS: NEUTROPHIL # MANUAL DIFF 0.3 TH/MM3 (1.8-7.7); OVALOCYTES 2+ (NORMAL); STOMATOCYTES 1+ (NORMAL)
[2018-03-15] MEDS ORDERED: SODIUM CHLOR 0.9% 1000 ML INJ 1,000 ML IV ONE (17:15)
[2018-03-15] MEDS ORDERED: CEFEPIME INJ 2,000 MG in SODIUM CHLORIDE 0.9% INJ 100 ML IV ONE (17:30)
[2018-03-15 18:09] LABS: BILIRUBIN, URINE NEG (NEG); BLOOD, URINE SMALL (NEG); GLUCOSE,URINE NEG (NEG); KETONE, URINE NEG (NEG); MUCUS URINE FEW /lpf (OCC); NITRITE,URINE NEG (NEG); URINE COLOR YELLOW (YELLW/STRAW); URINE LEUKOCYTE ESTERASE NEG (NEG)
[2018-03-15] MEDS ORDERED: SULFAMETHOXAZOLE-TRIMETHOPRIM DS 800-160 MG TAB PO ONE (18:45)
[2018-03-15] MEDS ORDERED: HYDR-3580 (19:09)
[2018-03-15 19:10] VITALS: BP 116/73; PULSE 77; RESP 14; O2SAT 100
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
--- NOTE | 2018-03-15 19:31 | EKG ---
Date Performed: 03/15/2018 Time Performed: 16:04:16 PTAGE: 42 years EKG: Sinus rhythm NORMAL ECG No significant change from prior electrocardiogram. PREVIOUS TRACING : 02/22/2018 12.39 DOCTOR: Saul Mackay Interpretating Date/Time 03/15/2018 19:30:40
[2018-03-15] MEDS ORDERED: SODIUM CHLORIDE 0.9% FLUSH 10 ML FLUSH IV FLUSH PRN (20:45)
[2018-03-15] MEDS ORDERED: NITROGLYCERIN 0.4 MG SL 25 TABS/BTL SL PRN (20:45)
[2018-03-15] MEDS ORDERED: ACETAMINOPHEN 500 MG CPLT PO PRN (20:45)
[2018-03-15] MEDS ORDERED: RESP: IPRATROPIUM 0.5 MG/2.5 ML NEB NEB PRN (21:00)
[2018-03-15] MEDS: SODIUM CHLORIDE 0.9% FLUSH 10 ML FLUSH IV FLUSH SCH (21:00)
[2018-03-15] MEDS: SODIUM CHLOR 0.9% 1000 ML INJ 1,000 ML IV SCH (21:06)
[2018-03-15] MEDS: RITONAVIR 100 MG TAB PO SCH (21:31)
[2018-03-15] MEDS: DOLUTEGRAVIR SODIUM 50 MG TAB PO SCH (21:31)
[2018-03-15] MEDS: FAMOTIDINE 20 MG TAB PO SCH (21:31)
[2018-03-15] MEDS: DARUNAVIR 600 MG TAB PO SCH (21:31)
[2018-03-15 21:35] VITALS: BP 127/78; PULSE 81; RESP 16; O2SAT 98
[2018-03-15 22:46] LABS: TROPONIN I LESS THAN 0.02 NG/ML (0.02-0.05)
[2018-03-15] MEDS: RESP: IPRATROPIUM 0.5 MG/2.5 ML NEB NEB SCH (22:48)
[2018-03-15 23:14] VITALS: BP 118/78; PULSE 73; RESP 16; TEMP 99.3; O2SAT 100
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
[2018-03-15] MEDS: MORPHINE SULFATE 4 MG/ML INJ IV PUSH PRN (23:34)
[2018-03-15] MEDS: CEFEPIME INJ 2,000 MG in SODIUM CHLORIDE 0.9% INJ 100 ML IV SCH (23:34)
[2018-03-16] VITALS (9 sets, daily range): BP systolic 100–124; BP diastolic 56–71; PULSE 61–87; RESP 12–18; TEMP 97.7–98.8; O2SAT 95–100
[2018-03-16] MEDS: MORPHINE SULFATE 4 MG/ML INJ IV PUSH PRN ×5 (03:41→23:40)
[2018-03-16] MEDS: RESP: IPRATROPIUM 0.5 MG/2.5 ML NEB NEB SCH ×4 (03:43→22:59)
[2018-03-16 05:08] LABS: HEMATOCRIT 30.1 % (39.0-51.0); MEAN CELL VOLUME 94.5 FL (80.0-100.0); MEAN CORPUSCULAR HEMOGLOBIN 31.2 PG (27.0-34.0); MEAN CORPUSCULAR HGB CONC 33.1 % (32.0-36.0); MEAN PLATELET VOLUME 9.2 FL (7.0-11.0); PLATELET COUNT 105 TH/MM3 (150-450); RED BLOOD COUNT 3.19 MIL/MM3 (4.50-5.90); RED CELL DISTRIBUTION WIDTH 15.9 % (11.6-17.2); WHITE BLOOD COUNT 1.6 TH/MM3 (4.0-11.0)
[2018-03-16 05:23] LABS: BICARBONATE 24.5 MEQ/L (21.0-32.0); BLOOD UREA NITROGEN 13 MG/DL (7-18); CALCIUM 7.5 MG/DL (8.5-10.1); CHLORIDE 110 MEQ/L (98-107); CREATININE 0.88 MG/DL (0.60-1.30); GLOMERULAR FILTRATION RATE 116 ML/MIN (>89); GLUCOSE,RANDOM 85 MG/DL (74-106); SODIUM (NA) 142 MEQ/L (136-145)
[2018-03-16 05:27] LABS: TROPONIN I LESS THAN 0.02 NG/ML (0.02-0.05)
[2018-03-16] MEDS: SULFAMETHOXAZOLE-TRIMETHOPRIM 400-80 MG TAB PO SCH ×4 (05:38→23:40)
[2018-03-16 07:54] LABS: BANDS 4 % (0-6); LYMPHOCYTES 32 % (9-44); MONOCYTES 26 % (0-8); NEUTROPHIL # MANUAL DIFF 0.4 TH/MM3 (1.8-7.7); POLYS (SEG NEUTROPHILS) 18 % (16-70)
[2018-03-16 07:55] LABS: OVALOCYTES 2+ (NORMAL)
[2018-03-16] MEDS: TENOFOVIR DISOPROXIL FUMARATE 300 MG TAB PO SCH (08:38)
[2018-03-16] MEDS: FAMOTIDINE 20 MG TAB PO SCH ×2 (08:38→21:38)
[2018-03-16] MEDS: DOLUTEGRAVIR SODIUM 50 MG TAB PO SCH ×2 (08:38→21:38)
[2018-03-16] MEDS: DARUNAVIR 600 MG TAB PO SCH ×2 (08:38→21:37)
[2018-03-16] MEDS: LISINOPRIL 5 MG TAB PO SCH (08:38)
[2018-03-16] MEDS: RITONAVIR 100 MG TAB PO SCH ×2 (08:38→21:38)
[2018-03-16] MEDS: SODIUM CHLORIDE 0.9% FLUSH 10 ML FLUSH IV FLUSH SCH ×2 (08:39→21:00)
[2018-03-16] MEDS: CEFEPIME INJ 2,000 MG in SODIUM CHLORIDE 0.9% INJ 100 ML IV SCH ×3 (08:39→23:41)
[2018-03-16] MEDS: SODIUM CHLOR 0.9% 1000 ML INJ 1,000 ML IV SCH ×2 (08:39→16:52)
--- NOTE | 2018-03-16 13:24 | EKG ---
Date Performed: 03/16/2018 Time Performed: 04:37:38 PTAGE: 42 years EKG: Sinus rhythm NORMAL ECG No significant change from prior electrocardiogram. PREVIOUS TRACING : 03/15/2018 22.23 DOCTOR: Saul Mackay Interpretating Date/Time 03/16/2018 13:22:54
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
--- NOTE | 2018-03-16 13:39 | EKG ---
Date Performed: 03/15/2018 Time Performed: 22:23:00 PTAGE: 42 years EKG: Sinus rhythm NORMAL ECG No significant change from prior electrocardiogram. PREVIOUS TRACING : 03/15/2018 16.04 DOCTOR: Saul Mackay Interpretating Date/Time 03/16/2018 13:39:15
[2018-03-16] MEDS ORDERED: AZITHROMYCIN 600 MG TAB PO ONE (14:00)
--- NOTE | 2018-03-16 14:41 | HHI.PR ---
Subjective Remarks Feels very tired. No cough. Some chest pain with inspiration. No fever or chills. Says he is not compliant with his HIV medications as he is working Objective Vitals Vital Signs Date Time Temp Pulse Resp B/P (MAP) Pulse Ox O2 Delivery O2 Flow Rate FiO2 03/16/18 14:32 20 03/16/18 11:46 97.7 68 12 114/65 (81) 100 03/16/18 08:31 98.2 69 16 102/60 (74) 100 03/16/18 07:10 75 03/16/18 03:39 98.2 75 16 100/56 (71) 95 03/16/18 02:49 76 03/15/18 23:14 99.3 73 16 118/78 (91) 100 03/15/18 22:25 03/15/18 21:35 81 16 127/78 (94) 98 Room Air 03/15/18 19:10 77 14 116/73 (87) 100 Room Air 03/15/18 16:57 91 20 141/68 (92) 100 Room Air I/O 03/15/18 03/15/18 03/15/18 03/16/18 03/16/18 03/16/18 07:00 15:00 23:00 07:00 15:00 23:00 Intake Total 1100 ml Balance 1100 ml Intake IV Total 1100 ml Result Diagram: 03/16/18 0430 03/16/18 0430 Imaging Last Impressions Lower Extremity Ultrasound 03/15/18 1706 Signed Impressions: CONCLUSION: 1. No DVT is identified within either lower extremity. 2. Nonspecific mildly prominent lymph nodes in the inguinal region bilaterally . Chest X-Ray 03/15/18 1540 Signed Impressions: CONCLUSION: Negative for acute process Objective Remarks GENERAL: This is a chronically ill-appearing 42-year-old male patient, in no apparent distress. CARDIOVASCULAR: Regular rate and rhythm without murmurs, gallops, or rubs. RESPIRATORY: Clear to auscultation. Breath sounds equal bilaterally. No wheezes , rales, or rhonchi. Congested cough noted during visit. GASTROINTESTINAL: Abdomen soft, non-tender, nondistended. No guarding. MUSCULOSKELETAL: Extremities without clubbing, cyanosis, or edema. No calf tenderness. NEUROLOGICAL: Awake and alert. Motor and sensory grossly within normal limits. Normal speech. A/P Assessment and Plan Mr. Beebe is a 42-year-old male with a history of Burkitt's lymphoma and HIV with intermittent HARRT compliance who presented to the emergency room on 2017 complaining of left axillary pain radiating across his chest to the sternum accompanied by lightheadedness and dizziness. The patient was suspected of having possible pneumonia despite negative chest x-ray findings and was admitted to the [facility] service for medical management. Suspected recurrent pneumonia Chest x-ray negative for acute process, however symptoms are concerning for pneumonia with possible lag in CXR Consult infectious disease for possible recurrent pneumonia with underlying HIV and Burkitt's lymphoma with pancytopenia and neutrophilian - assistance appreciated Patient given Bactrim DS 2 tabs in the ED, will start Bactrim 400/80 mg 1 tab every 6 hours p.o. (15-20 mg/kg divided into three or four daily doses per Up To Date for possible pneumocystic pneumonia) Cefepime 2 gm IV q8h for possible recurrence of recent CAP pneumonia. Atrovent nebulizers as needed and every 6 hours scheduled Pancytopenia with neutrophilia Placed on neutropenic precautions Consult oncology - (patient sees Dr. Owen) appreciate assistance Atypical chest pain We will check serial EKGs and cardiac enzymes to rule out ACS -initial 2 EKGs with normal sinus rhythm and no ischemic changes reviewed personally Suspect chest pain more likely to be related to possible recurrent pneumonia Continuous cardiac telemetry to monitor for arrhythmia HIV Intermittently compliant with medications Does not know most recent CD4 done at outpatient clinic October 15, 2017 CD4 was 29 Resume HAART DVT prophylaxis SCDs Discussed Condition With pt, nurse Milka Arora MD Mar 16, 2018 14:41
[2018-03-17] VITALS (10 sets, daily range): BP systolic 98–128; BP diastolic 50–74; PULSE 56–78; RESP 15–18; TEMP 97.6–98.5; O2SAT 90–100
[2018-03-17] MEDS: RESP: IPRATROPIUM 0.5 MG/2.5 ML NEB NEB SCH ×4 (03:49→19:22)
[2018-03-17] MEDS: SODIUM CHLOR 0.9% 1000 ML INJ 1,000 ML IV SCH ×2 (03:54→13:22)
[2018-03-17] MEDS: SULFAMETHOXAZOLE-TRIMETHOPRIM 400-80 MG TAB PO SCH ×2 (05:55→12:09)
[2018-03-17] MEDS: MORPHINE SULFATE 4 MG/ML INJ IV PUSH PRN ×2 (06:29→22:18)
[2018-03-17 08:36] LABS: AUTOMATED NEUTROPHIL # 0.1 TH/MM3 (1.8-7.7); BASOPHIL % 0.5 % (0.0-2.0); EOSINOPHIL # 0.3 TH/MM3 (0-0.4); EOSINOPHIL % 25.5 % (0.0-4.0); HEMATOCRIT 29.2 % (39.0-51.0); HEMOGLOBIN 9.6 GM/DL (13.0-17.0); LYMPH % 33.8 % (9.0-44.0); LYMPHOCYTE # 0.5 TH/MM3 (1.0-4.8); MEAN CELL VOLUME 94.4 FL (80.0-100.0); MEAN CORPUSCULAR HGB CONC 32.8 % (32.0-36.0); MEAN PLATELET VOLUME 9.4 FL (7.0-11.0); MONO % 29.9 % (0.0-8.0); MONOCYTE # 0.4 TH/MM3 (0-0.9); NEUT % 10.3 % (16.0-70.0); PLATELET COUNT 101 TH/MM3 (150-450); RED BLOOD COUNT 3.09 MIL/MM3 (4.50-5.90); RED CELL DISTRIBUTION WIDTH 15.8 % (11.6-17.2); WHITE BLOOD COUNT 1.3 TH/MM3 (4.0-11.0)
[2018-03-17 08:42] LABS: BICARBONATE 24.3 MEQ/L (21.0-32.0); CALCIUM 7.7 MG/DL (8.5-10.1); CREATININE 0.95 MG/DL (0.60-1.30)
[2018-03-17] MEDS: LISINOPRIL 5 MG TAB PO SCH (09:00)
[2018-03-17] MEDS: SODIUM CHLORIDE 0.9% FLUSH 10 ML FLUSH IV FLUSH SCH ×2 (09:00→22:17)
[2018-03-17] MEDS: TENOFOVIR DISOPROXIL FUMARATE 300 MG TAB PO SCH (09:00)
[2018-03-17] MEDS: RITONAVIR 100 MG TAB PO SCH ×2 (09:00→22:02)
[2018-03-17] MEDS: DOLUTEGRAVIR SODIUM 50 MG TAB PO SCH ×2 (09:00→22:03)
[2018-03-17] MEDS: DARUNAVIR 600 MG TAB PO SCH ×2 (09:00→22:03)
[2018-03-17] MEDS: CEFEPIME INJ 2,000 MG in SODIUM CHLORIDE 0.9% INJ 100 ML IV SCH ×2 (09:26→16:31)
[2018-03-17] MEDS: FAMOTIDINE 20 MG TAB PO SCH ×2 (09:28→22:03)
[2018-03-17 09:43] LABS: LYMPHOCYTES 44 % (9-44); MONOCYTES 20 % (0-8); POLYS (SEG NEUTROPHILS) 17 % (16-70)
[2018-03-17 09:47] LABS: NEUTROPHIL # MANUAL DIFF 0.2 TH/MM3 (1.8-7.7)
[2018-03-17 09:48] LABS: OVALOCYTES 1+ (NORMAL)
--- NOTE | 2018-03-17 11:27 | HHI.PR ---
Subjective Remarks Refusing to take his HIV medications. Has some sores in his mouth. Has some fevers overnight no chills. No abdominal pain. Not coughing much no sputum production. Feels tired. Says he does not have appetite. Objective Vitals Vital Signs Date Time Temp Pulse Resp B/P (MAP) Pulse Ox O2 Delivery O2 Flow Rate FiO2 03/17/18 07:28 97.6 67 18 109/57 (74) 100 03/17/18 04:31 98.5 71 15 98/50 (66) 90 03/17/18 02:40 65 03/16/18 23:56 98.8 87 16 120/71 (87) 99 03/16/18 20:47 98.7 73 18 124/69 (87) 99 03/16/18 19:02 18 03/16/18 15:40 98.5 64 16 111/63 (79) 99 03/16/18 15:20 61 03/16/18 11:46 97.7 68 12 114/65 (81) 100 I/O 03/16/18 03/16/18 03/16/18 03/17/18 03/17/18 03/17/18 07:00 15:00 23:00 07:00 15:00 23:00 Intake Total 100 ml Balance 100 ml Intake IV Total 100 ml # Voids 4 Result Diagram: 03/17/18 0603 03/17/18 0603 Imaging Last Impressions Lower Extremity Ultrasound 03/15/18 1706 Signed Impressions: CONCLUSION: 1. No DVT is identified within either lower extremity. 2. Nonspecific mildly prominent lymph nodes in the inguinal region bilaterally . Chest X-Ray 03/15/18 1540 Signed Impressions: CONCLUSION: Negative for acute process Objective Remarks GENERAL: This is a chronically ill-appearing 42-year-old male patient, in no apparent distress. CARDIOVASCULAR: Regular rate and rhythm without murmurs, gallops, or rubs. RESPIRATORY: Clear to auscultation. Breath sounds equal bilaterally. No wheezes , rales, or rhonchi. Congested cough noted during visit. GASTROINTESTINAL: Abdomen soft, non-tender, nondistended. No guarding. MUSCULOSKELETAL: Extremities without clubbing, cyanosis, or edema. No calf tenderness. NEUROLOGICAL: Awake and alert. Motor and sensory grossly within normal limits. Normal speech. A/P Assessment and Plan Mr. Beebe is a 42-year-old male with a history of Burkitt's lymphoma and HIV with intermittent HARRT compliance who presented to the emergency room on 2017 complaining of left axillary pain radiating across his chest to the sternum accompanied by lightheadedness and dizziness. The patient was suspected of having possible pneumonia despite negative chest x-ray findings and was admitted to the [facility] service for medical management. Suspected recurrent pneumonia Chest x-ray negative for acute process, however symptoms are concerning for pneumonia with possible lag in CXR Consult infectious disease for possible recurrent pneumonia with underlying HIV and Burkitt's lymphoma with pancytopenia and neutrophilia - assistance appreciated Patient given Bactrim DS 2 tabs in the ED, will start Bactrim 400/80 mg 1 tab every 6 hours p.o. (15-20 mg/kg divided into three or four daily doses per Up To Date for possible pneumocystic pneumonia) Cefepime 2 gm IV q8h for possible recurrence of recent CAP pneumonia. . Continue bactrim Added Diflucan Atrovent nebulizers as needed and every 6 hours scheduled Sores in his mouth. Add Magic wash Pancytopenia with neutrophilia Placed on neutropenic precautions Consult oncology - (patient sees Dr. Owen) appreciate assistance Atypical chest pain We will check serial EKGs and cardiac enzymes to rule out ACS -initial 2 EKGs with normal sinus rhythm and no ischemic changes reviewed personally Suspect chest pain more likely to be related to possible recurrent pneumonia Continuous cardiac telemetry to monitor for arrhythmia HIV Intermittently compliant with medications Does not know most recent CD4 done at outpatient clinic October 15, 2017 CD4 was 29 Resume HAART. However patient is refusing at times medications. Discussed at length with the patient however still refusing medications on and off. Decreased appetite. Add multivitamins, Ensure DVT prophylaxis SCDs Discussed Condition With pt, nurse Milka Arora MD Mar 17, 2018 11:27
[2018-03-17] MEDS: ACETAMINOPHEN/HYDROcodone 325 MG/7.5 MG TAB PO PRN (12:09)
[2018-03-17] MEDS: FILGRASTIM 480 MCG/1.6 ML VIAL SQ SCH (13:23)
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
[2018-03-17] MEDS: MULTIVITAMIN TAB PO SCH (16:29)
[2018-03-17] MEDS: ZINC SULFATE 220 MG CAP PO SCH (16:30)
[2018-03-17] MEDS: ACYCLOVIR 200 MG CAP PO SCH ×2 (16:30→22:03)
[2018-03-17] MEDS: ATOVAQUONE SUSP 750 MG/5 ML UDC PO SCH ×2 (16:32→22:03)
[2018-03-17] MEDS: NYSTAT/DIPHENHY/LIDO MOUTHWASH (Adult) 120ML SWISH-SWAL SCH ×2 (18:07→22:03)
[2018-03-17] MEDS: diphenhydrAMINE HCL 25 MG CAP PO PRN (22:03)
[2018-03-17] MEDS ORDERED: LACTULOSE SYRUP 20 GM/30 ML CUP PO PRN (23:00)
[2018-03-17] MEDS ORDERED: BISACODYL 10 MG SUPP RECTAL PRN (23:00)
[2018-03-17] MEDS ORDERED: MAGNESIUM HYDROXIDE SUSP 30 ML CUP PO PRN (23:00)
[2018-03-17] MEDS ORDERED: SENNOSIDES 8.6 MG TAB PO PRN (23:00)
--- NOTE | 2018-03-17 23:10 | MB ---
cc: Tutu Owen MD, Abdul J MD DATE: 03/17/2018 REASON FOR CONSULTATION: Consult requested by hospitalist for evaluation of neutropenia in a patient who has a history of Burkitt's lymphoma and HIV AIDS. HISTORY OF PRESENT ILLNESS: Bro is a 42-year-old male. He has a history of Burkitt's lymphoma which was diagnosed in 06/2014. He was treated with chemotherapy at [facility]. He had [employer] involvement. He went into remission. Recently, he had a restaging scan and no evidence of lymphoma was noted. He also has HIV and AIDS. He is noncompliant with his medications. He was admitted to the hospital several months ago for severe pancytopenia. During that admission, he underwent multiple testing including the bone marrow biopsy on 10/19/2017. There was no evidence of lymphoma noted. He had mild hypocellular bone marrow. The cultures of the bone marrow were negative. The patient was advised to resume the HIV medication which he did, and his pancytopenia had almost completely resolved. The patient came into the hospital complaining of cough and fever and chest pain. He had an x-ray which showed pneumonia. He is now admitted to the hospital. Infectious disease have been consulted and I have been asked to see him for further evaluation. The patient continues to remain noncompliant with his HIV medications. CBC on his admission showed white count 1.8, hemoglobin 10.3. Platelet count is 115. The absolute neutrophil count is only 200. The patient had blood cultures. The sputum culture is pending. The urinalysis does not show any evidence of urinary tract infection. The rest of the review of systems is negative. PAST MEDICAL HISTORY: Burkitt's lymphoma, HIV/AIDS, chronic back pain, noncompliance, history of subdural hematoma. PAST SURGICAL HISTORY: Ommaya catheter, PICC line. ALLERGIES: ALBUTEROL. MEDICATIONS: HIV medications which he could not remember which one he is taking. FAMILY HISTORY: None for malignancy. SOCIAL HISTORY: The patient smokes cigarettes, 1/2 pack a day for many years. Occasionally drinks alcohol. PHYSICAL EXAMINATION: GENERAL: A well-developed, male in no apparent distress. VITAL SIGNS: Temperature 97.6, heart rate is 67, blood pressure 117/64, O2 saturation 100%. HEAD, EYES, EARS, NOSE, AND THROAT: Pupils equal, round, reactive to light and accommodation, extraocular movements intact. Anicteric. No oral lesions noted. No thrush noted. NECK: Supple. No JVD. No masses noted. LUNGS: Clear. No wheezing, rhonchi, or rales. HEART: Regular rate and rhythm. No murmur heard. ABDOMEN: Soft and nontender. No hepatosplenomegaly. No abnormal bowel sounds. No guarding or rigidity noted. EXTREMITIES: No pedal edema. No cyanosis, no clubbing. NEUROLOGIC: Awake, alert, oriented x 3. Sensory and motor seem to be intact. SKIN: No bruises or petechiae noted. LYMPH NODES: No cervical, supraclavicular, or axillary lymphadenopathy noted. BACK: There is no spinal tenderness noted. ASSESSMENT: 1. Neutropenia, anemia and thrombocytopenia. He has pancytopenia due to noncompliance with his human immunodeficiency virus medications. 2. Human immunodeficiency virus/acquired immune deficiency syndrome. 3. History of Burkitt's lymphoma diagnosed in 2013, status post chemotherapy and he went into remission. PLAN: I have reviewed his available records, and I have discussed with the patient regarding the pancytopenia, especially neutropenia. The patient had a bone marrow biopsy the end of September which showed no significant findings. There was no evidence of lymphoma in the bone marrow. When he resumed the human immunodeficiency virus medications, his blood counts have improved. The patient continues to remain noncompliant with his human immunodeficiency virus medications as he does not like the side effects. I discussed with him that he should speak to his HIV physician, Dr. eBltrán at [facility] so that he could switch to some other medication where he does not get the side effects. Because of the neutropenia, I will start him on Neupogen today and then daily. Further recommendations will be based on his hospital stay. Thank you for asking my opinion. MD PACO Coffman/ , 10:41 PM , 11:08 PM
[2018-03-18] MEDS: CEFEPIME INJ 2,000 MG in SODIUM CHLORIDE 0.9% INJ 100 ML IV SCH ×4 (00:11→23:17)
[2018-03-18] MEDS: SODIUM CHLOR 0.9% 1000 ML INJ 1,000 ML IV SCH ×3 (00:11→23:16)
[2018-03-18] MEDS: RESP: IPRATROPIUM 0.5 MG/2.5 ML NEB NEB SCH ×4 (03:00→21:16)
[2018-03-18 04:13] VITALS: BP 121/59; PULSE 70; RESP 16; TEMP 98.2; O2SAT 99
[2018-03-18 05:29] LABS: HEMATOCRIT 28.5 % (39.0-51.0); HEMOGLOBIN 9.4 GM/DL (13.0-17.0); MEAN CELL VOLUME 94.1 FL (80.0-100.0); MEAN CORPUSCULAR HGB CONC 32.9 % (32.0-36.0); MEAN PLATELET VOLUME 9.2 FL (7.0-11.0); PLATELET COUNT 100 TH/MM3 (150-450); RED BLOOD COUNT 3.03 MIL/MM3 (4.50-5.90); WHITE BLOOD COUNT 2.7 TH/MM3 (4.0-11.0)
[2018-03-18 06:00] LABS: BICARBONATE 22.8 MEQ/L (21.0-32.0); CALCIUM 7.6 MG/DL (8.5-10.1); CREATININE 0.93 MG/DL (0.60-1.30)
[2018-03-18] MEDS: ATOVAQUONE SUSP 750 MG/5 ML UDC PO SCH ×3 (06:16→20:43)
[2018-03-18] MEDS: ACYCLOVIR 200 MG CAP PO SCH ×3 (06:16→20:44)
--- NOTE | 2018-03-18 06:41 | RADRPT ---
EXAM DATE: 03/18/2018 6:38 AM EDT AGE/SEX: 42 years / Male INDICATIONS: Rule out pneumonia, short of breath. CLINICAL DATA: This is the patient's subsequent encounter. Patient reports that signs and symptoms h ave been present for 4 - 6 days and indicates a pain score of 0/10. MEDICAL/SURGICAL HISTORY: None. None. COMPARISON: [facility] [place], 02/21/[place]. . FINDINGS: The heart size is normal. There is minimal linear density at the left base. The right lung is clear. No effusion is seen. CONCLUSION: Minimal suspected atelectasis or consolidation at the left base. Electronically signed by: Jose Dean MD 03/18/2018 6:40 AM EDT
[2018-03-18] MEDS ORDERED: DOCUSATE SODIUM 50 MG/SENNA 8.6 MG TAB PO SCH (09:00)
[2018-03-18] MEDS: DOLUTEGRAVIR SODIUM 50 MG TAB PO SCH ×2 (09:00→20:05)
[2018-03-18 09:06] VITALS: BP 129/90; PULSE 70; RESP 18; TEMP 97.5; O2SAT 100
[2018-03-18] MEDS: MORPHINE SULFATE 4 MG/ML INJ IV PUSH PRN ×3 (09:29→20:07)
[2018-03-18] MEDS: MULTIVITAMIN TAB PO SCH (09:37)
[2018-03-18] MEDS: ZINC SULFATE 220 MG CAP PO SCH (09:37)
[2018-03-18] MEDS: LISINOPRIL 5 MG TAB PO SCH (09:37)
[2018-03-18] MEDS: RITONAVIR 100 MG TAB PO SCH ×2 (09:37→20:05)
[2018-03-18] MEDS: FAMOTIDINE 20 MG TAB PO SCH ×2 (09:37→20:08)
[2018-03-18] MEDS: TENOFOVIR DISOPROXIL FUMARATE 300 MG TAB PO SCH (09:37)
[2018-03-18] MEDS: DARUNAVIR 600 MG TAB PO SCH ×2 (09:37→20:08)
[2018-03-18] MEDS: NYSTAT/DIPHENHY/LIDO MOUTHWASH (Adult) 120ML SWISH-SWAL SCH ×4 (09:38→20:05)
[2018-03-18] MEDS: SODIUM CHLORIDE 0.9% FLUSH 10 ML FLUSH IV FLUSH SCH ×2 (09:39→20:06)
[2018-03-18 09:56] LABS: BANDS 6 % (0-6); BASOPHILS 1 % (0-2); LYMPHOCYTES 25 % (9-44); MONOCYTES 11 % (0-8); POLYS (SEG NEUTROPHILS) 31 % (16-70)
[2018-03-18 10:03] LABS: OVALOCYTES 1+ (NORMAL)
[2018-03-18] MEDS ORDERED: MAGNESIUM HYDROXIDE SUSP 30 ML CUP PO PRN (10:30)
[2018-03-18] MEDS ORDERED: BISACODYL 10 MG SUPP RECTAL PRN (10:30)
[2018-03-18] MEDS ORDERED: LACTULOSE SYRUP 20 GM/30 ML CUP PO PRN (10:30)
[2018-03-18] MEDS ORDERED: SENNOSIDES 8.6 MG TAB PO PRN (10:30)
[2018-03-18] MEDS ORDERED: NALOXONE HCL 0.4 MG/ML AMP IV PUSH PRN (10:30)
[2018-03-18 11:55] VITALS: BP 124/82; PULSE 60; RESP 16; TEMP 97.9; O2SAT 100
--- NOTE | 2018-03-18 12:57 | PD.ONC.PN ---
Subjective Subjective Remarks Afebrile overnight. Pt lying in bed, in no acute distress. He complains of right shoulder pain x's one month, denies injury/trauma. Radiates to his shoulder blade and up his neck. Objective Data Date Time Temp Pulse Resp B/P (MAP) Pulse Ox O2 Delivery O2 Flow Rate FiO2 03/18/18 11:55 97.9 60 16 124/82 (96) 100 03/18/18 09:06 97.5 70 18 129/90 (103) 100 03/18/18 04:13 98.2 70 16 121/59 (79) 99 03/17/18 23:17 97.8 65 16 128/71 (90) 100 03/17/18 22:23 15 03/17/18 20:07 97.9 62 16 121/68 (85) 98 03/17/18 16:58 59 03/17/18 16:00 97.7 56 18 116/74 (88) 100 Result Diagram: 03/18/18 0457 03/18/18 0457 Laboratory Results Laboratory Tests Test 03/18/18 04:57 White Blood Count 2.7 TH/MM3 Red Blood Count 3.03 MIL/MM3 Hemoglobin 9.4 GM/DL Hematocrit 28.5 % Mean Corpuscular Volume 94.1 FL Mean Corpuscular Hemoglobin 31.0 PG Mean Corpuscular Hemoglobin Concent 32.9 % Red Cell Distribution Width 16.0 % Platelet Count 100 TH/MM3 Mean Platelet Volume 9.2 FL CBC Comment AUTO DIFF Differential Total Cells Counted 100 Neutrophils % (Manual) 31 % Band Neutrophils % 6 % Lymphocytes % 25 % Monocytes % 11 % Eosinophils % 26 % Basophils % 1 % Neutrophils # (Manual) 1.0 TH/MM3 Differential Comment FINAL DIFF MANUAL Platelet Estimate LOW Platelet Morphology Comment NORMAL Ovalocytes 1+ Blood Urea Nitrogen 11 MG/DL Creatinine 0.93 MG/DL Random Glucose 103 MG/DL Calcium Level 7.6 MG/DL Sodium Level 144 MEQ/L Potassium Level 4.0 MEQ/L Chloride Level 111 MEQ/L Carbon Dioxide Level 22.8 MEQ/L Anion Gap 10 MEQ/L Estimat Glomerular Filtration Rate 109 ML/MIN Culture Results Microbiology Date/Time Source Procedure Growth Status 03/15/18 17:40 Blood Peripheral Aerobic Blood Culture - Preliminary NO GROWTH IN 3 DAYS Resulted 03/15/18 17:40 Blood Peripheral Anaerobic Blood Culture - Preliminary NO GROWTH IN 3 DAYS Resulted 03/15/18 17:40 Blood Peripheral Aerobic Blood Culture - Preliminary NO GROWTH IN 3 DAYS Resulted 03/15/18 17:40 Blood Peripheral Anaerobic Blood Culture - Preliminary NO GROWTH IN 3 DAYS Resulted 03/17/18 06:30 Sputum Expectorated Sputum Gram Stain - Final Resulted 03/17/18 06:30 Sputum Expectorated Sputum Sputum Culture - Preliminary HEAVY GROWTH NORMAL RESPIRATORY ALICIA Resulted Imaging Studies Last 24 hours Impressions Chest X-Ray 03/18/18 0600 Signed Impressions: CONCLUSION: Minimal suspected atelectasis or consolidation at the left base. Administered Medications Medications (Trade) Dose Ordered Sig/Braulio Route PRN Reason Start Time Stop Time Status Last Admin Dose Admin Cefepime HCl 2000 mg/Sodium Chloride 100 ml @ 200 mls/hr Q8H IV 03/16/18 00:00 03/18/18 11:46 Sodium Chloride 1,000 ml @ 100 mls/hr Q10H IV 03/15/18 21:00 03/18/18 11:46 Sodium Chloride (NS Flush) 2 ml BID IV FLUSH 03/15/18 21:00 03/18/18 09:39 Acetaminophen/ Hydrocodone Bitart ([place] 7.5-325 Mg) 1 tab Q4H PRN PO PAIN SCALE 1 TO 5 03/15/18 20:45 03/17/18 12:09 Morphine Sulfate (Morphine Inj) 2 mg Q3H PRN IV PUSH PAIN SCALE 6 TO 10 03/15/18 20:45 03/18/18 09:29 Famotidine (Pepcid) 20 mg BID PO 03/15/18 21:00 03/18/18 09:37 Darunavir (Prezista) 600 mg BID PO 03/15/18 21:00 03/18/18 09:37 Lisinopril (Prinivil) 5 mg DAILY PO 03/16/18 09:00 03/18/18 09:37 Ritonavir (Norvir) 100 mg BID PO 03/15/18 21:00 03/18/18 09:37 Tenofovir Disoproxil Fumarate (Viread) 300 mg DAILY PO 03/16/18 09:00 03/18/18 09:37 Ipratropium [place] (Atrovent Neb) 0.5 mg Q6HR NEB NEB 03/15/18 22:00 03/16/18 22:59 Filgrastim (Neupogen Inj) 480 mcg DAILY@14 SQ 03/17/18 14:00 03/17/18 13:23 Multivitamins (Theragran) 1 tab DAILY PO 03/17/18 14:30 03/18/18 09:37 Multi-Ingredient Mouthwash/Gargle (Magic Mouthwash Adult Liq) 10 ml QID SWISH-SWAL 03/17/18 18:00 03/24/18 17:59 03/18/18 09:38 Zinc Sulfate (Zinc Sulfate) 220 mg DAILY PO 03/17/18 14:30 03/24/18 14:29 03/18/18 09:37 Acyclovir (Zovirax) 400 mg Q8HR PO 03/17/18 15:15 03/18/18 06:16 Atovaquone (Mepron Liq) 750 mg Q8HR PO 03/17/18 15:15 03/18/18 06:16 Diphenhydramine HCl (Benadryl) 25 mg Q6H PRN PO ITCHING 03/17/18 20:00 03/17/18 22:03 Magnesium Hydroxide (Milk Of Magnesia Liq) 30 ml Q12H PRN PO Mild constipation 03/17/18 23:00 03/18/18 00:11 Objective Remarks GENERAL: Well-nourished, well-developed male patient. In no distress. SKIN: Warm and dry. HEAD: Normocephalic. EYES: No scleral icterus. No injection or drainage. NECK: Supple, trachea midline. No lymphadenopathy. CARDIOVASCULAR: +S1/S2. Regular rate and rhythm. RESPIRATORY: Posterior breath sounds clear, equal bilaterally. No accessory muscle use. GASTROINTESTINAL: Abdomen soft, non-tender, nondistended. EXTREMITIES: No cyanosis, or edema. MUSCULOSKELETAL: Adequate muscle tone, strength. Normal range of motion to BUE. NEUROLOGICAL: No obvious focal deficit. Awake, alert, and oriented x3. PSYCHIATRIC: Appropriate mood and affect; insight and judgment normal. Assessment/Plan Problem List: (1) Fever and neutropenia ICD Codes: D70.9 - Neutropenia, unspecified; R50.81 - Fever presenting with conditions classified elsewhere Plan: Afebrile. Blood cultures negative x's 3 days. --continue daily Neupogen. --Neutropenic precautions. --Subjectively c/o right shoulder pain. Tender to palpation. Will obtain shoulder xray to evaluate further. (2) HIV (human immunodeficiency virus infection) ICD Codes: B20 - Human immunodeficiency virus [HIV] disease Status: Chronic Plan: Infectious disease consulted and managing. (3) Burkitt lymphoma ICD Codes: C83.70 - Burkitt lymphoma, unspecified site Status: Chronic Plan: History of, diagnosed 06/2014, treated with chemotherapy at [facility]. --Bone marrow biopsy, at this facility, on 10/19/17 did not show evidence of lymphoma. Attending Statement The exam, history, and the medical decision-making described in the above note were completed with the assistance of the mid-level provider. I reviewed and agree with the findings presented. I attest that I had a [id number] encounter with the patient on the same day, and personally performed and documented my assessment and findings in the medical record. Complaining of right shoulder pain No fevers or cough or shortness breath Wbc's coming up Continue neupogen. contine HIV meds. stop Bactrim. Problem Qualifiers (1) Burkitt lymphoma: Qualified Codes: C83.70 - Burkitt lymphoma, unspecified site Elena Olivares Mar 18, 2018 12:57 Jeni Owen MD Mar 18, 2018 23:06
[2018-03-18] MEDS: FILGRASTIM 480 MCG/1.6 ML VIAL SQ SCH (13:42)
--- NOTE | 2018-03-18 14:47 | RADRPT ---
EXAM DATE: 03/18/2018 2:14 PM EDT AGE/SEX: 42 years / Male INDICATIONS: Right shoulder pain, no known injury. CLINICAL DATA: This is the patient's subsequent encounter. Patient reports that signs and symptoms h ave been present for 1 month and indicates a pain score of 10/10. MEDICAL/SURGICAL HISTORY: None. None. COMPARISON: [facility], XR CHEST PA AND LAT, 05/13/2017. [facility], CT THORAX W CONTRAST, 10/16/2017. . FINDINGS: Bony structures are intact and in normal alignment. Joints are intact without dislocation or signifi cant arthropathy. Osseous density is normal. Soft tissues are unremarkable. No radiopaque foreign bodies seen. CONCLUSION: No evidence of recent bony injury. Electronically signed by: Chaz Apodaca MD 03/18/2018 2:46 PM EDT
--- NOTE | 2018-03-18 15:41 | HHI.PR ---
Subjective Remarks Patient is in the bed, he appears in not acute distress at this time. Says he is still with constipation received some bowel regiment. No nausea vomiting. Denies fever or chills. No cough. Still with sore mouth. Still with decreased appetite and eating fairly well. Objective Vitals Vital Signs Date Time Temp Pulse Resp B/P (MAP) Pulse Ox O2 Delivery O2 Flow Rate FiO2 03/18/18 11:55 97.9 60 16 124/82 (96) 100 03/18/18 09:06 97.5 70 18 129/90 (103) 100 03/18/18 04:13 98.2 70 16 121/59 (79) 99 03/17/18 23:17 97.8 65 16 128/71 (90) 100 03/17/18 22:23 15 03/17/18 20:07 97.9 62 16 121/68 (85) 98 03/17/18 16:58 59 03/17/18 16:00 97.7 56 18 116/74 (88) 100 I/O 03/17/18 03/17/18 03/17/18 03/18/18 03/18/18 03/18/18 07:00 15:00 23:00 07:00 15:00 23:00 Intake Total 1100 ml 100 ml 240 ml Balance 1100 ml 100 ml 240 ml Intake Oral 240 ml IV Total 1100 ml 100 ml # Voids 4 2 Result Diagram: 03/18/18 0457 03/18/18 0457 Imaging Last Impressions Chest X-Ray 03/18/18 0600 Signed Impressions: CONCLUSION: Minimal suspected atelectasis or consolidation at the left base. Shoulder X-Ray 03/18/18 0000 Signed Impressions: CONCLUSION: No evidence of recent bony injury. Lower Extremity Ultrasound 03/15/18 1706 Signed Impressions: CONCLUSION: 1. No DVT is identified within either lower extremity. 2. Nonspecific mildly prominent lymph nodes in the inguinal region bilaterally . Objective Remarks GENERAL: This is a chronically ill-appearing 42-year-old male patient, in no apparent distress. CARDIOVASCULAR: Regular rate and rhythm without murmurs, gallops, or rubs. RESPIRATORY: Clear to auscultation. Less cough GASTROINTESTINAL: Abdomen soft, non-tender, nondistended. No guarding. MUSCULOSKELETAL: Extremities without clubbing, cyanosis, or edema. No calf tenderness. NEUROLOGICAL: Awake and alert. Motor and sensory grossly within normal limits. Normal speech. A/P Assessment and Plan Mr. Beebe is a 42-year-old male with a history of Burkitt's lymphoma and HIV with intermittent HARRT compliance who presented to the emergency room on 2017 complaining of left axillary pain radiating across his chest to the sternum accompanied by lightheadedness and dizziness. The patient was suspected of having possible pneumonia despite negative chest x-ray findings and was admitted to the [facility] service for medical management. Suspected recurrent pneumonia Chest x-ray negative for acute process, however symptoms are concerning for pneumonia with possible lag in CXR Consult infectious disease for possible recurrent pneumonia with underlying HIV and Burkitt's lymphoma with pancytopenia and neutrophilia - assistance appreciated Patient given Bactrim DS 2 tabs in the ED, will start Bactrim 400/80 mg 1 tab every 6 hours p.o. (15-20 mg/kg divided into three or four daily doses per Up To Date for possible pneumocystic pneumonia) Cefepime 2 gm IV q8h for possible recurrence of recent CAP pneumonia. . Continue bactrim Added Diflucan Atrovent nebulizers as needed and every 6 hours scheduled Sores in his mouth. Add Magic wash Pancytopenia with neutrophilia Placed on neutropenic precautions Consult oncology - (patient sees Dr. Owen) appreciate assistance Atypical chest pain We will check serial EKGs and cardiac enzymes to rule out ACS -initial 2 EKGs with normal sinus rhythm and no ischemic changes reviewed personally Suspect chest pain more likely to be related to possible recurrent pneumonia Continuous cardiac telemetry to monitor for arrhythmia HIV Intermittently compliant with medications Does not know most recent CD4 done at outpatient clinic October 15, 2017 CD4 was 29 Resume HAART. However patient is refusing at times medications. Discussed at length with the patient however still refusing medications on and off. Decreased appetite. Add multivitamins, Ensure DVT prophylaxis SCDs Discussed Condition With pt, nurse Note that the patient is refusing on/off his antiretroviral medications. Discussed with the patient at length importance of compliance with meds. Patient expressed understanding. However patient says he has his right not to take them. Says he has HIV since for 10 years now. Consider palliative care consultation to establish goals of care. Milka Arora MD Mar 18, 2018 15:41
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
[2018-03-18 16:53] VITALS: BP 129/78; PULSE 61; RESP 16; TEMP 97.6; O2SAT 100
[2018-03-18 20:00] VITALS: BP 139/84; PULSE 65; RESP 18; TEMP 98; O2SAT 100
[2018-03-18] MEDS: DOCUSATE SODIUM 50 MG/SENNA 8.6 MG TAB PO SCH (20:08)
[2018-03-18] MEDS: diphenhydrAMINE HCL 25 MG CAP PO PRN (23:25)
[2018-03-19] VITALS: BP 127/84; PULSE 76; RESP 18; TEMP 98.1; O2SAT 100
[2018-03-19] MEDS: RESP: IPRATROPIUM 0.5 MG/2.5 ML NEB NEB SCH ×2 (03:13→10:00)
[2018-03-19 04:00] VITALS: BP 120/73; PULSE 65; RESP 16; TEMP 97.9; O2SAT 100
[2018-03-19] MEDS: ATOVAQUONE SUSP 750 MG/5 ML UDC PO SCH (05:26)
[2018-03-19] MEDS: ACYCLOVIR 200 MG CAP PO SCH (05:26)
[2018-03-19] MEDS: MORPHINE SULFATE 4 MG/ML INJ IV PUSH PRN (05:32)
[2018-03-19 06:53] LABS: AUTOMATED NEUTROPHIL # 1.2 TH/MM3 (1.8-7.7); BASOPHIL % 0.4 % (0.0-2.0); EOSINOPHIL # 0.6 TH/MM3 (0-0.4); EOSINOPHIL % 18.5 % (0.0-4.0); HEMOGLOBIN 9.5 GM/DL (13.0-17.0); LYMPH % 20.5 % (9.0-44.0); LYMPHOCYTE # 0.7 TH/MM3 (1.0-4.8); MEAN CELL VOLUME 93.5 FL (80.0-100.0); MEAN CORPUSCULAR HEMOGLOBIN 30.7 PG (27.0-34.0); MEAN CORPUSCULAR HGB CONC 32.8 % (32.0-36.0); MEAN PLATELET VOLUME 9.3 FL (7.0-11.0); MONO % 25.8 % (0.0-8.0); MONOCYTE # 0.9 TH/MM3 (0-0.9); NEUT % 34.8 % (16.0-70.0); PLATELET COUNT 93 TH/MM3 (150-450); RED BLOOD COUNT 3.11 MIL/MM3 (4.50-5.90); RED CELL DISTRIBUTION WIDTH 16.1 % (11.6-17.2); WHITE BLOOD COUNT 3.4 TH/MM3 (4.0-11.0)
[2018-03-19 06:56] LABS: BICARBONATE 23.3 MEQ/L (21.0-32.0); CREATININE 0.87 MG/DL (0.60-1.30)
[2018-03-19 08:00] VITALS: BP 112/69; PULSE 71; RESP 18; TEMP 97.7; O2SAT 100
[2018-03-19 08:58] LABS: BANDS 11 % (0-6); LYMPHOCYTES 24 % (9-44); MONOCYTES 26 % (0-8); NEUTROPHIL # MANUAL DIFF 1.3 TH/MM3 (1.8-7.7); POLYS (SEG NEUTROPHILS) 27 % (16-70)
[2018-03-19 08:59] LABS: DOHLE BODIES PRESENT (NONE SEEN)
[2018-03-19 09:00] LABS: OVALOCYTES 1+ (NORMAL)
[2018-03-19] MEDS: SODIUM CHLORIDE 0.9% FLUSH 10 ML FLUSH IV FLUSH SCH (09:00)
[2018-03-19] MEDS: DOLUTEGRAVIR SODIUM 50 MG TAB PO SCH (09:00)
--- NOTE | 2018-03-19 09:17 | HHI.PR ---
Subjective Remarks In bed appears improved today. Says no fever or chills overnight No n/v/d/c. Denies chest pain . Objective Vitals Vital Signs Date Time Temp Pulse Resp B/P (MAP) Pulse Ox O2 Delivery O2 Flow Rate FiO2 03/19/18 04:00 97.9 65 16 120/73 (89) 100 03/19/18 00:00 98.1 76 18 127/84 (98) 100 03/19/18 00:00 76 03/18/18 20:00 98.0 65 18 139/84 (102) 100 03/18/18 20:00 65 03/18/18 16:53 97.6 61 16 129/78 (95) 100 03/18/18 11:55 97.9 60 16 124/82 (96) 100 I/O 03/18/18 03/18/18 03/18/18 03/19/18 03/19/18 03/19/18 07:00 15:00 23:00 07:00 15:00 23:00 Intake Total 240 ml 1460 ml Balance 240 ml 1460 ml Intake Oral 240 ml 360 ml IV Total 1100 ml # Voids 2 3 # Bowel Movements 0 Result Diagram: 03/19/18 0621 03/19/18 0621 Imaging Last Impressions Chest X-Ray 03/18/18 0600 Signed Impressions: CONCLUSION: Minimal suspected atelectasis or consolidation at the left base. Shoulder X-Ray 03/18/18 0000 Signed Impressions: CONCLUSION: No evidence of recent bony injury. Lower Extremity Ultrasound 03/15/18 1706 Signed Impressions: CONCLUSION: 1. No DVT is identified within either lower extremity. 2. Nonspecific mildly prominent lymph nodes in the inguinal region bilaterally . Objective Remarks GENERAL: This is a 42 yo chronically ill-appearing AA male, in no apparent distress. CARDIOVASCULAR: Regular rate and rhythm without murmurs, gallops, or rubs. RESPIRATORY: Clear to auscultation. No cough GASTROINTESTINAL: Abdomen soft, non-tender, nondistended. No guarding. MUSCULOSKELETAL: Extremities without clubbing, cyanosis, or edema. No calf tenderness. NEUROLOGICAL: Awake and alert. Motor and sensory grossly within normal limits. Normal speech. A/P Assessment and Plan Mr. Beebe is a 42-year-old male with a history of Burkitt's lymphoma and HIV with intermittent HARRT compliance who presented to the emergency room on 2017 complaining of left axillary pain radiating across his chest to the sternum accompanied by lightheadedness and dizziness. The patient was suspected of having possible pneumonia despite negative chest x-ray findings [facility]. Suspected recurrent pneumonia Absolute Neutropenia in a patient with Burkitt's lymphoma. The Bactrim may also be affecting his white count as well Herpetic ulcerations of the oral cavity Advanced HIV disease and could also have infection involving the bone marrow as well. He has been worked up in the past for MAC and stains for AFB if bone marrow biopsy was negative Chest x-ray negative for acute process, however symptoms are concerning for pneumonia with possible lag in CXR Consult infectious disease for possible recurrent pneumonia with underlying HIV and Burkitt's lymphoma with pancytopenia and neutrophilia - assistance appreciated Patient given Bactrim DS 2 tabs in the ED, will start Bactrim 400/80 mg 1 tab every 6 hours p.o. (15-20 mg/kg divided into three or four daily doses per Up To Date for possible pneumocystic pneumonia), however bactrim can cause BM suppression and is discontinued as patient noted with neutropenia. Also DC Cefepime 2 gm IV q8h for possible recurrence of recent CAP pneumonia. Continue atovaquone 750 mg PO tid for PCP treatment. Continue acyclovir for oral herpes lesions x 10 days. Continue HIV medications. Continue prophylaxis for MAC with azithromycin. 1200 mg weekly. Atrovent nebulizers as needed and every 6 hours scheduled Sores in his mouth. Add Magic wash Monitor the clinical response. Repeat chest x-ray 03/19 stable Needs PCP treatment for 3 weeks. Pancytopenia with neutrophilia, resolved Placed on neutropenic precautions Consult oncology - (patient sees Dr. Owen) appreciate assistance Atypical chest pain We will check serial EKGs and cardiac enzymes to rule out ACS -initial 2 EKGs with normal sinus rhythm and no ischemic changes reviewed personally Suspect chest pain more likely to be related to possible recurrent pneumonia Continuous cardiac telemetry to monitor for arrhythmia HIV Intermittently compliant with medications Does not know most recent CD4 done at outpatient clinic October 15, 2017 CD4 was 29 Resume HAART. However patient is refusing at times medications. Discussed at length with the patient however still refusing medications on and off. Decreased appetite. Add multivitamins, Ensure DVT prophylaxis SCDs Discussed Condition With pt, nurse DC home today if cleared by consultants Milka Arora MD Mar 19, 2018 09:17
[2018-03-19] MEDS: SODIUM CHLOR 0.9% 1000 ML INJ 1,000 ML IV SCH (09:36)
[2018-03-19] MEDS: CEFEPIME INJ 2,000 MG in SODIUM CHLORIDE 0.9% INJ 100 ML IV SCH (09:38)
[2018-03-19] MEDS: DARUNAVIR 600 MG TAB PO SCH (09:40)
[2018-03-19] MEDS: TENOFOVIR DISOPROXIL FUMARATE 300 MG TAB PO SCH (09:40)
[2018-03-19] MEDS: ZINC SULFATE 220 MG CAP PO SCH (09:40)
[2018-03-19] MEDS: MULTIVITAMIN TAB PO SCH (09:40)
[2018-03-19] MEDS: FAMOTIDINE 20 MG TAB PO SCH (09:40)
[2018-03-19] MEDS: DOCUSATE SODIUM 50 MG/SENNA 8.6 MG TAB PO SCH ×2 (09:41→10:34)
[2018-03-19] MEDS: RITONAVIR 100 MG TAB PO SCH (09:41)
[2018-03-19] MEDS: NYSTAT/DIPHENHY/LIDO MOUTHWASH (Adult) 120ML SWISH-SWAL SCH (09:42)
[2018-03-19] MEDS: LISINOPRIL 5 MG TAB PO SCH (09:47)
[2018-03-19] MEDS: ACETAMINOPHEN/HYDROcodone 325 MG/7.5 MG TAB PO PRN (10:35)
[2018-03-19] MEDS ORDERED: ACYC200C66 PO ×2 (10:47→10:54)
--- NOTE | 2018-03-19 10:50 | HHI.DS ---
Discharge Summary Admission Date Mar 15, 2018 at 18:58 Discharge Date: Mar 19, 2018 Admitting Diagnosis pneumonia, chest pain (1) Fever and neutropenia ICD Code: D70.9 - Neutropenia, unspecified; R50.81 - Fever presenting with conditions classified elsewhere (2) PNA (pneumonia) ICD Code: J18.9 - Pneumonia, unspecified organism (3) HIV (human immunodeficiency virus infection) ICD Code: B20 - Human immunodeficiency virus [HIV] disease Status: Chronic (4) Burkitt lymphoma ICD Code: C83.70 - Burkitt lymphoma, unspecified site Status: Chronic (5) Pancytopenia ICD Code: D61.818 - Other pancytopenia (6) Anemia ICD Code: D64.9 - Anemia, unspecified (7) HIV (human immunodeficiency virus infection) ICD Code: B20 - Human immunodeficiency virus [HIV] disease Status: Acute Procedures none Brief History - From Admission Mr. Beebe is a 42-year-old male with a history of Burkitt's lymphoma and HIV with intermittent HARRT compliance who presented to the emergency room on 2017 complaining of left axillary pain radiating across his chest to the sternum accompanied by lightheadedness and dizziness. The patient was suspected of having possible pneumonia despite negative chest x-ray findings and was admitted to the [facility] service for medical management. Patient was seen in the CDU. He reports left axillary chest pain radiating across sternum and rates it a 4-5 out of 10 and has been present for 1 week. 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 He denies fevers but states he never has fevers and reports increased lethargy, chills, and night sweats. He reports occasional cough with yellow phlegm but denies hemoptysis. [facility] for [facility] and management. His last CD4 was done in January and he is unaware of what the results are. CBC/BMP: 03/19/18 0621 03/19/18 0621 Significant Findings Laboratory Tests Test 03/17/18 06:03 03/18/18 04:57 03/19/18 06:21 White Blood Count 1.3 TH/MM3 (4.0-11.0) 2.7 TH/MM3 (4.0-11.0) 3.4 TH/MM3 (4.0-11.0) Red Blood Count 3.09 MIL/MM3 (4.50-5.90) 3.03 MIL/MM3 (4.50-5.90) 3.11 MIL/MM3 (4.50-5.90) Hemoglobin 9.6 GM/DL (13.0-17.0) 9.4 GM/DL (13.0-17.0) 9.5 GM/DL (13.0-17.0) Hematocrit 29.2 % (39.0-51.0) 28.5 % (39.0-51.0) 29.0 % (39.0-51.0) Platelet Count 101 TH/MM3 (150-450) 100 TH/MM3 (150-450) 93 TH/MM3 (150-450) Neutrophils (%) (Auto) 10.3 % (16.0-70.0) Monocytes (%) (Auto) 29.9 % (0.0-8.0) 25.8 % (0.0-8.0) Eosinophils (%) (Auto) 25.5 % (0.0-4.0) 18.5 % (0.0-4.0) Neutrophils # (Auto) 0.1 TH/MM3 (1.8-7.7) 1.2 TH/MM3 (1.8-7.7) Lymphocytes # (Auto) 0.5 TH/MM3 (1.0-4.8) 0.7 TH/MM3 (1.0-4.8) Monocytes % 20 % (0-8) 11 % (0-8) 26 % (0-8) Eosinophils % 19 % (0-4) 26 % (0-4) 12 % (0-4) Neutrophils # (Manual) 0.2 TH/MM3 (1.8-7.7) 1.0 TH/MM3 (1.8-7.7) 1.3 TH/MM3 (1.8-7.7) Platelet Estimate LOW (NORMAL) LOW (NORMAL) LOW (NORMAL) Ovalocytes 1+ (NORMAL) 1+ (NORMAL) 1+ (NORMAL) Random Glucose 72 MG/DL (74-106) Calcium Level 7.7 MG/DL (8.5-10.1) 7.6 MG/DL (8.5-10.1) 8.0 MG/DL (8.5-10.1) Chloride Level 110 MEQ/L (98-107) 111 MEQ/L (98-107) 114 MEQ/L (98-107) Eosinophils # (Auto) 0.6 TH/MM3 (0-0.4) Band Neutrophils % 11 % (0-6) Dohle Bodies PRESENT (NONE SEEN) Imaging Last Impressions Chest X-Ray 03/18/18 0600 Signed Impressions: CONCLUSION: Minimal suspected atelectasis or consolidation at the left base. Shoulder X-Ray 03/18/18 0000 Signed Impressions: CONCLUSION: No evidence of recent bony injury. Lower Extremity Ultrasound 03/15/18 1706 Signed Impressions: CONCLUSION: 1. No DVT is identified within either lower extremity. 2. Nonspecific mildly prominent lymph nodes in the inguinal region bilaterally . PE at Discharge GENERAL: This is a 42 yo chronically ill-appearing AA male, in no apparent distress. CARDIOVASCULAR: Regular rate and rhythm without murmurs, gallops, or rubs. RESPIRATORY: Clear to auscultation. No cough GASTROINTESTINAL: Abdomen soft, non-tender, nondistended. No guarding. MUSCULOSKELETAL: Extremities without clubbing, cyanosis, or edema. No calf tenderness. NEUROLOGICAL: Awake and alert. Motor and sensory grossly within normal limits. Normal speech. Hospital Course Mr. Beebe is a 42-year-old male with a history of Burkitt's lymphoma and HIV with intermittent HARRT compliance who presented to the emergency room on 2017 complaining of left axillary pain radiating across his chest to the sternum accompanied by lightheadedness and dizziness. The patient was suspected of having possible pneumonia despite negative chest x-ray findings and [facility]. Suspected recurrent pneumonia Absolute Neutropenia in a patient with Burkitt's lymphoma. The Bactrim may also be affecting his white count as well Herpetic ulcerations of the oral cavity Advanced HIV disease and could also have infection involving the bone marrow as well. He has been worked up in the past for MAC and stains for AFB if bone marrow biopsy was negative Chest x-ray negative for acute process, however symptoms are concerning for pneumonia with possible lag in CXR Consult infectious disease for possible recurrent pneumonia with underlying HIV and Burkitt's lymphoma with pancytopenia and neutrophilia - assistance appreciated Patient given Bactrim DS 2 tabs in the ED, will start Bactrim 400/80 mg 1 tab every 6 hours p.o. (15-20 mg/kg divided into three or four daily doses per Up To Date for possible pneumocystic pneumonia), however bactrim can cause BM suppression and is discontinued as patient noted with neutropenia. Also DC Cefepime 2 gm IV q8h for possible recurrence of recent CAP pneumonia. Continue atovaquone 750 mg PO tid for PCP treatment. Continue acyclovir for oral herpes lesions x 10 days. Continue HIV medications. Continue prophylaxis for MAC with azithromycin. 1200 mg weekly. Atrovent nebulizers as needed and every 6 hours scheduled Sores in his mouth. Add Magic wash Monitor the clinical response. Repeat chest x-ray 03/19 stable Needs PCP treatment for 3 weeks. Pancytopenia with neutrophilia, resolved Placed on neutropenic precautions Consult oncology - (patient sees Dr. Owen) appreciate assistance Atypical chest pain We will check serial EKGs and cardiac enzymes to rule out ACS -initial 2 EKGs with normal sinus rhythm and no ischemic changes reviewed personally Suspect chest pain more likely to be related to possible recurrent pneumonia Continuous cardiac telemetry to monitor for arrhythmia HIV Intermittently compliant with medications Does not know most recent CD4 done at outpatient clinic October 15, 2017 CD4 was 29 Resume HAART. However patient is refusing at times medications. Discussed at length with the patient however still refusing medications on and off. Decreased appetite. Add multivitamins, Ensure DVT prophylaxis SCDs Discussed Condition With pt, nurse DC home today if cleared by consultants Pt Condition on Discharge: Stable Discharge Disposition: Discharge Home Discharge Time: > 30 minutes Discharge Instructions DIET: Follow Instructions for: As Tolerated, No Restrictions Activities you can perform: Regular-No Restrictions Follow up Referrals: Infectious Disease - 1 Week Oncology/Hematology - 1 Week with Jeni Owen MD PCP Follow-up - 2-3 Days New Medications: Azithromycin (Azithromycin) 600 Mg Tab 1200 MG PO Q7D for Infection, #10 TAB 0 Refills Acyclovir (Acyclovir) 200 Mg Cap 400 MG PO Q8HR for sores viral illness , #30 CAP Atovaquone Liq (Mepron Liq) 750 Mg/5 Ml Susp 750 MG PO Q8HR for infection , #63 TAB Continued Medications: Darunavir (Prezista) 600 Mg Tab 600 MG PO BID for Mgmt Viral Infection, #60 TAB 0 Refills Dolutegravir (Tivicay) 50 Mg Tab 50 MG PO BID for Mgmt Viral Infection, #60 TAB 0 Refills Hydrocodone/Acetaminophen (Hydrocodone-Acetamin 7.5-325) 7.5 Mg-325 Mg Tablet Ipratropium Neb (Ipratropium Neb) 0.5 Mg/2.5 Ml Amp 0.5 MG NEB Q6HR NEB PRN for SHORTNESS OF BREATH, #1 BOX 0 Refills Lisinopril (Lisinopril) 5 Mg Tab 5 MG PO DAILY for Blood Pressure Management, #30 TAB 0 Refills Ritonavir (Norvir) 100 Mg Cap 100 MG PO BID for Mgmt Viral Infection, #180 CAP 0 Refills Tenofovir disoproxil fumarate (Viread) 300 Mg Tab 300 MG PO DAILY for Mgmt Viral Infection, #30 TAB 0 Refills Milka Arora MD Mar 19, 2018 10:50
[2018-03-19] MEDS ORDERED: ATOV750UDC PO (10:54)
[2018-03-19] MEDS ORDERED: AZIT600T PO (10:55)
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
[2018-03-19] MEDS ORDERED: [UNRECOGNIZED DRUG - CODE] SQ (11:49)
--- NOTE | 2018-03-19 12:24 | PD.ONC.PN ---
Subjective Subjective Remarks Afebrile overnight. Pt lying in bed, in no acute distress. No new complaints at this time. Objective Data Date Time Temp Pulse Resp B/P (MAP) Pulse Ox O2 Delivery O2 Flow Rate FiO2 03/19/18 08:00 97.7 71 18 112/69 (83) 100 03/19/18 04:00 97.9 65 16 120/73 (89) 100 03/19/18 00:00 98.1 76 18 127/84 (98) 100 03/19/18 00:00 76 03/18/18 20:00 98.0 65 18 139/84 (102) 100 03/18/18 20:00 65 03/18/18 16:53 97.6 61 16 129/78 (95) 100 03/19/18 03/19/18 03/19/18 07:00 15:00 23:00 Intake Total 1460 ml Balance 1460 ml Result Diagram: 03/19/1862003/19/18 0621 Laboratory Results Laboratory Tests Test 03/19/18 06:21 White Blood Count 3.4 TH/MM3 Red Blood Count 3.11 MIL/MM3 Hemoglobin 9.5 GM/DL Hematocrit 29.0 % Mean Corpuscular Volume 93.5 FL Mean Corpuscular Hemoglobin 30.7 PG Mean Corpuscular Hemoglobin Concent 32.8 % Red Cell Distribution Width 16.1 % Platelet Count 93 TH/MM3 Mean Platelet Volume 9.3 FL Neutrophils (%) (Auto) 34.8 % Lymphocytes (%) (Auto) 20.5 % Monocytes (%) (Auto) 25.8 % Eosinophils (%) (Auto) 18.5 % Basophils (%) (Auto) 0.4 % Neutrophils # (Auto) 1.2 TH/MM3 Lymphocytes # (Auto) 0.7 TH/MM3 Monocytes # (Auto) 0.9 TH/MM3 Eosinophils # (Auto) 0.6 TH/MM3 Basophils # (Auto) 0.0 TH/MM3 CBC Comment AUTO DIFF Differential Total Cells Counted 100 Neutrophils % (Manual) 27 % Band Neutrophils % 11 % Lymphocytes % 24 % Monocytes % 26 % Eosinophils % 12 % Neutrophils # (Manual) 1.3 TH/MM3 Differential Comment FINAL DIFF MANUAL Dohle Bodies PRESENT Platelet Estimate LOW Platelet Morphology Comment NORMAL Ovalocytes 1+ Blood Urea Nitrogen 12 MG/DL Creatinine 0.87 MG/DL Random Glucose 87 MG/DL Calcium Level 8.0 MG/DL Sodium Level 144 MEQ/L Potassium Level 4.0 MEQ/L Chloride Level 114 MEQ/L Carbon Dioxide Level 23.3 MEQ/L Anion Gap 7 MEQ/L Estimat Glomerular Filtration Rate 118 ML/MIN Culture Results Microbiology Date/Time Source Procedure Growth Status 03/17/18 06:30 Sputum Expectorated Sputum Gram Stain - Final Complete 03/17/18 06:30 Sputum Expectorated Sputum Sputum Culture - Final HEAVY GROWTH NORMAL RESPIRATORY ALICIA Complete Administered Medications Medications (Trade) Dose Ordered Sig/Braulio Route PRN Reason Start Time Stop Time Status Last Admin Dose Admin Cefepime HCl 2000 mg/Sodium Chloride 100 ml @ 200 mls/hr Q8H IV 03/16/18 00:00 03/19/18 09:38 Sodium Chloride 1,000 ml @ 100 mls/hr Q10H IV 03/15/18 21:00 03/19/18 09:36 Sodium Chloride (NS Flush) 2 ml BID IV FLUSH 03/15/18 21:00 03/18/18 09:39 Acetaminophen/ Hydrocodone Bitart ([place] 7.5-325 Mg) 1 tab Q4H PRN PO PAIN SCALE 1 TO 5 03/15/18 20:45 03/19/18 10:35 Morphine Sulfate (Morphine Inj) 2 mg Q3H PRN IV PUSH PAIN SCALE 6 TO 10 03/15/18 20:45 03/19/18 05:32 Famotidine (Pepcid) 20 mg BID PO 03/15/18 21:00 03/19/18 09:40 Darunavir (Prezista) 600 mg BID PO 03/15/18 21:00 03/19/18 09:40 Lisinopril (Prinivil) 5 mg DAILY PO 03/16/18 09:00 03/19/18 09:47 Ritonavir (Norvir) 100 mg BID PO 03/15/18 21:00 03/19/18 09:41 Tenofovir Disoproxil Fumarate (Viread) 300 mg DAILY PO 03/16/18 09:00 03/19/18 09:40 Ipratropium [place] (Atrovent Neb) 0.5 mg Q6HR NEB NEB 03/15/18 22:00 03/18/18 21:16 Filgrastim (Neupogen Inj) 480 mcg DAILY@14 SQ 03/17/18 14:00 03/18/18 13:42 Multivitamins (Theragran) 1 tab DAILY PO 03/17/18 14:30 03/19/18 09:40 Multi-Ingredient Mouthwash/Gargle (Magic Mouthwash Adult Liq) 10 ml QID SWISH-SWAL 03/17/18 18:00 03/24/18 17:59 03/19/18 09:42 Zinc Sulfate (Zinc Sulfate) 220 mg DAILY PO 03/17/18 14:30 03/24/18 14:29 03/19/18 09:40 Acyclovir (Zovirax) 400 mg Q8HR PO 03/17/18 15:15 03/19/18 05:26 Atovaquone (Mepron Liq) 750 mg Q8HR PO 03/17/18 15:15 03/18/18 20:43 Diphenhydramine HCl (Benadryl) 25 mg Q6H PRN PO ITCHING 03/17/18 20:00 03/18/18 23:25 Senna/Docusate Sodium ([place]-Colace) 1 tab BID PO 03/18/18 21:00 03/19/18 10:34 Objective Remarks GENERAL: Well-nourished, well-developed male patient. SKIN: Warm and dry. HEAD: Normocephalic. EYES: No scleral icterus. No injection or drainage. NECK: Supple, trachea midline. CARDIOVASCULAR: +S1/S2. Regular rate and rhythm. RESPIRATORY: Posterior breath sounds clear, equal bilaterally. No accessory muscle use. GASTROINTESTINAL: Abdomen soft, non-tender, nondistended. EXTREMITIES: No cyanosis, or edema. MUSCULOSKELETAL: Adequate muscle tone, strength. NEUROLOGICAL: No obvious focal deficit. Awake, alert, and oriented x3. PSYCHIATRIC: Appropriate mood and affect; insight and judgment normal. Assessment/Plan Problem List: (1) Fever and neutropenia ICD Codes: D70.9 - Neutropenia, unspecified; R50.81 - Fever presenting with conditions classified elsewhere Plan: Afebrile. Blood cultures negative x's 4 days. --Recommend Neupogen once discharged. Pt aware of recommendations and will follow-up with his infectious disease doctor for management of this. --Continue neutropenic precautions. (2) HIV (human immunodeficiency virus infection) ICD Codes: B20 - Human immunodeficiency virus [HIV] disease Status: Chronic Plan: Infectious disease consulted and managing. (3) Burkitt lymphoma ICD Codes: C83.70 - Burkitt lymphoma, unspecified site Status: Chronic Plan: History of, diagnosed 06/2014, treated with chemotherapy at [facility]. --Bone marrow biopsy, at this facility, on 10/19/17 did not show evidence of lymphoma. Plan 1. Recommend pt continue Neupogen as an outpt. 2. Follow-up with infectious disease doctor to manage. 3. We will sign off from an onc/heme standpoint. Kindly call if needed. Attending Statement The exam, history, and the medical decision-making described in the above note were completed with the assistance of the mid-level provider. I reviewed and agree with the findings presented. I attest that I had a [id number] encounter with the patient on the same day, and personally performed and documented my assessment and findings in the medical record. Pt wants to go home still c/o left shoulder pain. Denies anyother c/o Ok to d/c sign off avialbe prn. Problem Qualifiers (1) Burkitt lymphoma: Qualified Codes: C83.70 - Burkitt lymphoma, unspecified site Elena Olivares Mar 19, 2018 12:24 Jeni Owen MD Mar 19, 2018 18:50
== END 2018-03-19 13:20 | disposition home or self-care (01) | DRG 975 ==
LOC: NEPE 15:28 → NEDA 18:58 → NEPFCDU 22:31 → HCIN 03-18 08:03
PROVIDERS: ADMIT Hospitalist; ATTEND Hospitalist
DX: J18.9 Pneumonia, unspecified organism (principal); B20 Human immunodeficiency virus [HIV] disease; D61.818 Other pancytopenia; B00.2 Herpesviral gingivostomatitis and pharyngotonsillitis; Z85.72 Personal history of non-Hodgkin lymphomas; Z92.21 Personal history of antineoplastic chemotherapy; Z91.14 Patient's other noncompliance with medication regimen; F17.210 Nicotine dependence, cigarettes, uncomplicated; F12.90 Cannabis use, unspecified, uncomplicated; L29.9 Pruritus, unspecified; T37.0X5A Adverse effect of sulfonamides, initial encounter; Y92.239 Unspecified place in hospital as the place of occurrence of the external cause; K59.00 Constipation, unspecified
CPT/HCPCS: 71045; 71046; 73030; 80048; 81001; 82550; 82552; 83605; 83615; 84484; 85007; 85027; 87040; 87070; 87205; 93005; 93970; 94640; 94664; 96365; J0692; J1442; J2270; J7030; J7644

== ENCOUNTER 2018-07-08 19:46 | Inpatient (IN) ==
--- NOTE | 2018-07-08 20:26 | XR ---
EXAM DATE: 07/08/2018 8:06 PM EDT AGE/SEX: 43 years / Male INDICATIONS: . Chest pain, shortness of breath, dizziness, and congestion. CLINICAL DATA: This is the patient's initial encounter. Patient reports that signs and symptoms have been present for 2 weeks and indicates a pain score of 10/10. MEDICAL/SURGICAL HISTORY: None. None. COMPARISON: [facility] [place], CHEST SINGLE AP, 03/18/2018. . FINDINGS: Study was obtained with the patient sitting in a wheelchair. PA and lateral views of the chest demons trate the lungs to be symmetrically aerated without evidence of mass, infiltrate or effusion. The car diomediastinal contours are unremarkable. Osseous structures are intact. CONCLUSION: No acute cardiopulmonary disease demonstrated. Electronically signed by: Jose Miranda MD 07/08/2018 8:24 PM EDT
--- NOTE | 2018-07-08 22:13 | ED ---
HPI General Chief Complaint: Chest Pain Stated Complaint: Dizziness/SOB/Chest pain Time Seen by Provider: 07/08/18 21:44 Source: patient Mode of arrival: ambulatory Limitations: no limitations History of Present Illness HPI narrative: Patient is a [facility], patient has been noncompliant, last labs back in February 2018 HIV viral load of 64,800 and CD4 count of 31....... the patient is currently on tivicay, prezista, norvir, viread for hiv and mepron and azithromycin for prophylaxis for MAC and PCP however the patient today makes me aware that he "feels sick" when he takes azithromycin so he has not taken it for a while....last visit in april to clinic however patient missed 3 previous clinic appointments....patient c/o chest pain, throat pain, along with sob.....the throat pain is so severe that he has avoided eating over the last 4 days, patient noted thrush over the past 4 days. MD complaint: Reports chest pain STEMI Alert: No Onset (ago): week(s) (1) Duration: constant and progressively worsening Onset: during exertion Pain location: Reports substernal Severity: moderate Severity scale (1-10): 4 Quality: Reports tightness Pain radiation: Reports none Relieving factors: nothing Exacerbating factors: nothing Context: Reports other (The patient does not have any recent illness, however the patient does have a advanced HIV/AIDS diagnosis) Treatments prior to arrival chest pain: Reports none Related Data Home Medications Medication Instructions Recorded Confirmed Unable to Obtain Home Meds 07/08/18 07/08/18 Allergies Allergy/AdvReac Type Severity Reaction Status Date / Time albuterol Allergy Intermediate Hives Verified 03/15/18 16:58 azithromycin Allergy Hives Verified 07/08/18 19:59 [facility] Medical History Medical History HIV (human immunodeficiency virus infection) (Acute) Lymphoma (Acute) Social History Social History Substance History: Active Abuse Second Hand Smoke Exposure: Yes Smoking Status: Former smoker Tobacco Type: Cigarettes How Often Do You Have a Drink Containing Alcohol: Monthly or less Recent Travel in [facility] within the Last 8 Weeks: No Recent Out of Country Travel within the Last 8 Weeks: No Substance Abuse Detail Marijuana: Substance Use Status: Active Route Used Substance Abuse: Inhalation Immunization History Tetanus Immunization: <5 Years Exam Narrative Exam Narrative: GENERAL: -[place] male, cachectic SKIN: Warm and dry. HEAD: Atraumatic. Normocephalic. EYES: Pupils equal and round. No scleral icterus. No injection or drainage. ENT: No nasal bleeding or discharge. Mucous membranes pink and moist. Noted Dara oropharyngeal NECK: Trachea midline. No JVD. CARDIOVASCULAR: Regular rate and rhythm. no rubs or gallops RESPIRATORY: No accessory muscle use. Bilateral scattered wheezing. Tidal volume equal bilaterally. GASTROINTESTINAL: Abdomen soft, non-tender, nondistended. No rebound or guarding...gu: painful penile ulcer to glans, bilateral inguinal lymphadenopathy nontender and without buboes noted. MUSCULOSKELETAL: Extremities without clubbing, cyanosis, or edema. No obvious deformities. NEUROLOGICAL: Awake and alert. No obvious cranial nerve deficits. Motor grossly within normal limits. Five out of 5 muscle strength in the arms and legs. Normal speech. PSYCHIATRIC: Appropriate mood and affect; insight and judgment normal. Course Initial Documented Vital Signs Temperature 99.3 F 07/08/18 19:59 Pulse Rate 115 H 07/08/18 19:59 Respiratory Rate 24 07/08/18 19:59 Blood Pressure 128/86 07/08/18 19:59 Pulse Oximetry 99 07/08/18 19:59 Last Documented Vital Signs Temperature 99.3 F 07/08/18 19:59 Pulse Rate 101 H 07/08/18 23:41 Respiratory Rate 18 07/08/18 23:41 Blood Pressure 126/79 07/08/18 23:41 Pulse Oximetry 97 07/08/18 23:41 Critical Care Time Critical Care Time: Yes Total Critical Care Time: 30 Attestation: Aggregate critical care time was 30 minutes. Time to perform other separately billable procedures was not included in the critical care time. My time did not include minutes spent treating any other patients simultaneously or on activities that did not directly contribute to the patient's treatment. The services I provided to this patient were to treat and/or prevent clinically significant deterioration I provided critical care services requiring my management, as noted below: Chart data review, documentation time, medication orders and management, vital sign assessments/reviewing monitor data, ordering and reviewing lab tests, ordering and interpreting/reviewing x-rays and diagnostic studies, care of the patient and discussion of the patient with the admitting physicians. Medical Decision Making MDM Narrative Medical decision making narrative: Patient is an aids stage patient with a CD4 count less than 50 which makes infectious differential very broad and will require formal admission for further evaluation and care...unknown how compliant patient is with medications (since he admitted to not taking prophylactic azithromycin as prescribed...additionally patient has missed multiple clinic visits) Laboratory interpretation: Leukopenia noted, anemia noted, no evidence of any abnormal platelet count. Absolute neutropenia 0.4 Lactic acid 0.8 Normal electrolytes, normal kidney function, normal liver and pancreatic functions. first set of cardiac enzymes negative normal cpk, normal bnp. tox screen only pos for marijuana ct chest read by radiologist showed no pulmonary embolus, pericardial effusion noted however patient has 2.8 cm focal consolidation/mass in MARY ELLEN suspect esophageal candidiasis, possible early lgv or chancroid, possible malignancy with lung mass...will highly recc ID consultation. iv diflucan was given to patient as well as levaquin/doxy Medical Screen Exam Complete: Yes Emergency Medical Condition: Yes Differential Diagnosis Differential Diagnosis: sepsis (uti, pna, lgv vs chancroid vs pcp pna vs systemic candidiasis) Medical Records Medical records reviewed: Yes I reviewed the patient's medical records. Lab Data Result diagrams: 07/08/18 22:08 07/08/18 22:08 Lab Results 07/08/18 07/08/18 07/08/18 Range/Units 22:08 22:08 22:08 WBC 1.8 L (4.0-11.0) th/mm3 RBC 3.11 L (4.50-5.90) mil/mm3 Hgb 9.6 L (13.0-17.0) gm/dL Hct 29.1 L (39.0-51.0) % MCV 93.7 (80.0-100.0) fL MCH 30.9 (27.0-34.0) pg MCHC 33.0 (32.0-36.0) % RDW 17.5 H (11.6-17.2) % Plt Count 190 (150-450) th/mm3 MPV 9.7 (7.0-11.0) fL Prelim Diff (Auto) Slide review pending Neut % (Auto) 22.7 (16.0-70.0) % Lymph % (Auto) 30.3 (9.0-44.0) % Cannon % (Auto) 29.8 H (0.0-8.0) % Eos % (Auto) 16.0 H (0.0-4.0) % Baso % (Auto) 1.2 (0.0-2.0) % Neut # (Auto) 0.4 L* (1.8-7.7) th/mm3 Lymph # (Auto) 0.5 L (1.0-4.8) th/mm3 Cannon # (Auto) 0.5 (0.0-0.9) th/mm3 Eos # (Auto) 0.3 (0.0-0.4) th/mm3 Baso # (Auto) 0.0 (0.0-0.2) th/mm3 WBC Differential Manual diff final Seg Neuts % (Manual) 13 L (16-70) % Band Neuts % (Manual) 2 (0-6) % Lymphocytes % (Manual) 39 (9-44) % Monocytes % (Manual) 30 H (0-8) % Eosinophils % (Manual) 16 H (0-4) % Abs Neuts (Manual) 0.3 L* (1.8-7.7) th/mm3 Differential Comment . Platelet Estimate Normal (Normal) Platelet Morphology Enlarged H (Normal) Tear Drop Cells 1+ H (None) Ovalocytes 2+ H (None) Sodium 135 L (136-145) meq/L Potassium 3.8 (3.5-5.1) meq/L Chloride 100 (98-107) meq/L Carbon Dioxide 26.7 (21.0-32.0) meq/L Anion Gap 8 (5-15) meq/L BUN 17 (7-18) mg/dL Creatinine 0.99 (0.60-1.30) mg/dL Estimated GFR Greater than 89 (>89) mL/min Random Glucose 92 (74-106) mg/dL Lactic Acid (0.4-2.0) mmol/L Calcium 8.8 (8.5-10.1) mg/dL Total Bilirubin 0.6 (0.2-1.0) mg/dL AST 17 (15-37) U/L ALT 17 (12-78) U/L Alkaline Phosphatase 84 (45-117) U/L Total Creatine Kinase (39-308) U/L CK-MB (CK-2) (0.5-3.6) ng/mL Troponin I Less than 0.02 L (0.02-0.05) ng/mL B-Natriuretic Peptide Less than 2 (0-100) pg/mL Total Protein 8.7 H (6.4-8.2) g/dL Albumin 3.7 (3.4-5.0) g/dL Lipase 93 (73-393) U/L Urine Opiates Screen (Neg) Ur Barbiturates Screen (Neg) Ur Amphetamines Screen (Neg) U Benzodiazepines Scrn (Neg) Urine Cocaine Screen (Neg) U Cannabinoids Screen (Neg) 07/08/18 07/08/18 07/08/18 Range/Units 22:08 22:20 22:22 WBC (4.0-11.0) th/mm3 RBC (4.50-5.90) mil/mm3 Hgb (13.0-17.0) gm/dL Hct (39.0-51.0) % MCV (80.0-100.0) fL MCH (27.0-34.0) pg MCHC (32.0-36.0) % RDW (11.6-17.2) % Plt Count (150-450) th/mm3 MPV (7.0-11.0) fL Prelim Diff (Auto) Neut % (Auto) (16.0-70.0) % Lymph % (Auto) (9.0-44.0) % Cannon % (Auto) (0.0-8.0) % Eos % (Auto) (0.0-4.0) % Baso % (Auto) (0.0-2.0) % Neut # (Auto) (1.8-7.7) th/mm3 Lymph # (Auto) (1.0-4.8) th/mm3 Cannon # (Auto) (0.0-0.9) th/mm3 Eos # (Auto) (0.0-0.4) th/mm3 Baso # (Auto) (0.0-0.2) th/mm3 WBC Differential Seg Neuts % (Manual) (16-70) % Band Neuts % (Manual) (0-6) % Lymphocytes % (Manual) (9-44) % Monocytes % (Manual) (0-8) % Eosinophils % (Manual) (0-4) % Abs Neuts (Manual) (1.8-7.7) th/mm3 Differential Comment Platelet Estimate (Normal) Platelet Morphology (Normal) Tear Drop Cells (None) Ovalocytes (None) Sodium (136-145) meq/L Potassium (3.5-5.1) meq/L Chloride (98-107) meq/L Carbon Dioxide (21.0-32.0) meq/L Anion Gap (5-15) meq/L BUN (7-18) mg/dL Creatinine (0.60-1.30) mg/dL Estimated GFR (>89) mL/min Random Glucose (74-106) mg/dL Lactic Acid 0.8 (0.4-2.0) mmol/L Calcium (8.5-10.1) mg/dL Total Bilirubin (0.2-1.0) mg/dL AST (15-37) U/L ALT (12-78) U/L Alkaline Phosphatase (45-117) U/L Total Creatine Kinase 165 (39-308) U/L CK-MB (CK-2) Less than 1.0 (0.5-3.6) ng/mL Troponin I (0.02-0.05) ng/mL B-Natriuretic Peptide (0-100) pg/mL Total Protein (6.4-8.2) g/dL Albumin (3.4-5.0) g/dL Lipase (73-393) U/L Urine Opiates Screen Neg (Neg) Ur Barbiturates Screen Neg (Neg) Ur Amphetamines Screen Neg (Neg) U Benzodiazepines Scrn Neg (Neg) Urine Cocaine Screen Neg (Neg) U Cannabinoids Screen Pos H (Neg) Imaging Data Radiologist's impression: Chest X-Ray 07/08/18 20:06 CONCLUSION: No acute cardiopulmonary disease demonstrated. Chest CTA 07/08/18 21:44 CONCLUSION: 1. No pulmonary embolus. 2. 2.8 cm focal consolidation or mass in the left upper lobe. This could represent a focal area of pneumonia. Underlying neoplasm cannot be excluded. At the very least that should be followed. This could be further evaluated with a PET FDG study as an outpatient. ECG Data EKG Prior to Arrival: No Attestation: I personally reviewed and interpreted this ECG as follows: Prior ECG tracings: not available for review Interpretation: sinus tachycardia, 100 bpm, nl intervals, no acute ST elevation DC pattern noted Discharge Plan Discharge Disposition Patient Disposition: 30 Still Patient Discharge Condition Condition: Fair Discharge Details Diagnosis: Lung mass, Dara esophagitis Physicians Team ED Provider: Azael Hancock Primary Care Provider: UNKNOWN, Attending Provider: Alva Benton Status ED Status: Admitted Patient
[2018-07-08 22:16] LABS: Baso % (Auto) 1.2 % (0.0-2.0); Eos # (Auto) 0.3 th/mm3 (0.0-0.4); Hematocrit 29.1 % (39.0-51.0); Hemoglobin 9.6 gm/dL (13.0-17.0); Lymph # (Auto) 0.5 th/mm3 (1.0-4.8); Lymph % (Auto) 30.3 % (9.0-44.0); Mean Corpuscular Hemoglobin 30.9 pg (27.0-34.0); Mean Corpuscular Volume 93.7 fL (80.0-100.0); Mean Platelet Volume 9.7 fL (7.0-11.0); Mono # (Auto) 0.5 th/mm3 (0.0-0.9); Mono % (Auto) 29.8 % (0.0-8.0); Neut % (Auto) 22.7 % (16.0-70.0); Platelet Count 190 th/mm3 (150-450); Red Blood Count 3.11 mil/mm3 (4.50-5.90); Red Cell Distribution Width 17.5 % (11.6-17.2); White Blood Count 1.8 th/mm3 (4.0-11.0)
[2018-07-08 22:28] LABS: Neut # (Auto) 0.4 th/mm3 (1.8-7.7)
[2018-07-08 22:37] LABS: Albumin 3.7 g/dL (3.4-5.0); Anion Gap 8 meq/L (5-15); Aspartate Aminotransferase 17 U/L (15-37); Blood Urea Nitrogen 17 mg/dL (7-18); Calcium 8.8 mg/dL (8.5-10.1); Carbon Dioxide 26.7 meq/L (21.0-32.0); Chloride 100 meq/L (98-107); Glomerular Filtration Rate Greater Than 89 mL/min (>89); Glucose,Random 92 mg/dL (74-106); Lipase 93 U/L (73-393); Potassium 3.8 meq/L (3.5-5.1); Sodium 135 meq/L (136-145)
[2018-07-08] MEDS: Sod Chloride 0.9% Inj 1,000 ML IV.SIG SCH ×2 (22:42→23:42)
[2018-07-08 22:44] LABS: Alanine Aminotransferase 17 U/L (12-78); Alkaline Phosphatase 84 U/L (45-117); Total Protein 8.7 g/dL (6.4-8.2)
[2018-07-08 22:53] LABS: Eosinophils 16 % (0-4); Lymphocytes 39 % (9-44); Monocytes 30 % (0-8); Ovalocytes 2+; Tear Drop Cells 1+
[2018-07-08 22:54] LABS: Platelet Estimate Normal (Normal)
[2018-07-08 22:59] LABS: Creatine Kinase 165 U/L (39-308)
[2018-07-08 23:00] LABS: Amphetamine Screen,Urine Neg (Neg); Barbiturate Screen,Urine Neg (Neg); Cannabinoid Screen,Urine Pos (Neg); Cocaine Screen,Urine Neg (Neg)
[2018-07-08 23:01] LABS: Opiate Screen,Urine Neg (Neg)
--- NOTE | 2018-07-08 23:52 | CT ---
EXAM DATE: 07/08/2018 10:47 PM EDT AGE/SEX: 43 years / Male INDICATIONS: Chest pain. Shortness of breath. CLINICAL DATA: This is the patient's initial encounter. Patient reports that signs and symptoms have been present for 1 week and indicates a pain score of 6/10. MEDICAL/SURGICAL HISTORY: None. None. RADIATION DOSE: 9.17 CTDI (mGy) COMPARISON: No prior exams available for comparison. TECHNIQUE: Volumetric scanning was performed using a multi-row detector CT scanner during bolus infu rachael of 75 ml Omnipaque 350 (iohexol) nonionic water-soluble contrast as a single exam dose. The patsy a was post processed with a variety of visualization algorithms including full volume maximum intensi ty projection and sliding thin slab reformation. Using automated exposure control and adjustment of t he mA and/or kV according to patient size, radiation dose was kept as low as reasonably achievable to obtain optimal diagnostic quality images. DICOM format image data is available electronically for r eview and comparison. FINDINGS: Pulmonary Arteries: No filling defects are seen in the pulmonary arteries out to the subsegmental ve ssels. The left and right pulmonary arteries are normal in diameter. Lung: There is a focal 2.8 cm area of consolidation or mass seen at the anterior lateral left upper lobe. Effusion: None. Mediastinum: No evidence of mediastinal or hilar adenopathy. Other: The axilla is unremarkable. CONCLUSION: 1. No pulmonary embolus. 2. 2.8 cm focal consolidation or mass in the left upper lobe. This could represent a focal area of p neumonia. Underlying neoplasm cannot be excluded. At the very least that should be followed. This cou ld be further evaluated with a PET FDG study as an outpatient. Electronically signed by: Jose Dean MD 07/08/2018 11:51 PM EDT
[2018-07-09] MEDS ORDERED: Bisacodyl 10 MG Supp RECTAL PRN (02:48)
[2018-07-09] MEDS ORDERED: Azithromycin Inj 500 MG in Sodium Chlor 0.9% Inj 250 ML IV.SIG SCH (03:00)
--- NOTE | 2018-07-09 03:14 | P.HP ---
History of Present Illness Service: 43-year-old male with a past medical history significant for HIV (last CD4 count 31), and history of Burkitt's lymphoma presents to the emergency department for the evaluation of chest pain and shortness of breath times 1.5 weeks. The patient endorses associated chills and night sweats. He states he has associated rib pain with anorexia and dysphasia. He has oral thrush. He is noncompliant with his medications. He is supposed to be on azithromycin for MAC and PCP prophylaxis however he stopped taking it because he states it makes him "feel sick." The patient's medication regiment consists of tivicay, prezista, norvir and viread however he reports he does not take them as prescribed. No abdominal pain. No nausea/vomiting/diarrhea. No lateralizing signs/symptoms. Primary Care Physician: UNKNOWN Inpatient Certification: I certify that the inpatient services were ordered in accordance with Medicare regulations governing the order. This includes certification that hospital inpatient services are reasonable and necessary and in the case of services not specified as inpatient-only under 42 CFR 419.22(n), that they are appropriately provided as inpatient services in accordance to with the 2-midnight benchmark under 43 CFR 412.3(e) Review of Systems All other systems reviewed negative except as stated in HPI PMFSH - History History Provided By: Patient - Medical History Medical History: Medical History (Last Reviewed 07/09/18 @ 02:56 by Alva Benton MD) HIV (human immunodeficiency virus infection) Lymphoma - Surgical History Surgical History: Surgical History (Last Updated 07/09/18 @ 02:56 by Alva Benton MD) No history of previous surgery - Tobacco History Second Hand Smoke Exposure: Yes Tobacco Use In Past 30 Days: Yes Smoking Status: Former smoker Tobacco Type: Cigarettes - Alcohol History How Often Do You Have a Drink Containing Alcohol: Monthly or less - Substance Use History Substance History: Active Abuse - Substance Use Type Marijuana Status: Active Route Used: Inhalation - Travel History Recent Travel in the [place] Within the Last 8 Weeks: No Recent Travel Out of the Country Within the Last 8 Weeks: No - Immunization History Tetanus Immunization: <5 Years Medications and Allergies Active Medications: Active Medications Sodium Chloride (Ns Inj) 1,000 mls @ 0 mls/hr IV.SIG BOLUS MENDOZA Stop: 07/09/18 22:31 Last Infusion: 07/09/18 00:19 Dose: Infused Azithromycin 500 mg/ Sodium (Chloride) 250 mls @ 250 mls/hr IV.SIG Q24H MENDOZA Ceftriaxone Sodium 2,000 mg/ (Sodium Chloride) 100 mls @ 200 mls/hr IV.SIG Q24H MENDOZA Doxycycline Hyclate 100 mg/ (Sodium Chloride) 100 mls @ 100 mls/hr IV.SIG Q12H MENDOZA Fluconazole (Diflucan 400 Mg Premix Bag) 200 mls @ 100 mls/hr IV.SIG Q24H MENDOZA Sodium Chloride (Ns Flush) 2 ml IV.FLUSH UNSCH PRN PRN Reason: FLUSH AFTER USING IV ACCESS Allergies Allergy/AdvReac Type Severity Reaction Status Date / Time albuterol Allergy Intermediate Hives Verified 03/15/18 16:58 azithromycin Allergy Hives Verified 07/08/18 19:59 Home Medications Medication Instructions Recorded Confirmed Type Unable to Obtain Home Meds 07/08/18 07/08/18 History Exam Vital signs: Vital Signs 07/08/18 19:59 07/08/18 23:41 07/09/18 01:46 Temperature 99.3 F Pulse Rate 115 H 101 H 90 Respiratory Rate 24 18 Blood Pressure 128/86 126/79 Pulse Oximetry 99 97 Intake & Output 07/08/18 07/08/18 07/09/18 06:59 18:59 06:59 Intake Total 2099 Balance 2099 Weight 85.729 kg Intake: IV 2099 Diflucan 200 mg Premix Bag 100 100 / 100 ML @ 100 mls/hr IV.SIG ONCE ONE Rx#:[id number] NS Inj 1,000 ML @ Wide Open IV. 1999 SIG BOLUS MENDOZA Rx#:[id number] Narrative: Gen.: No acute distress Head: Normocephalic. Atraumatic. EENT: Pupils equal round and reactive to light. Nose without drainage. Airway intact. Oropharyngeal candidiasis present. Cardiovascular: Regular rate and rhythm. No murmurs, rubs or gallops. Respiratory: Lungs clear to auscultation bilaterally. No wheezes or rhonchi. Abdomen: Soft, nontender, nondistended. No peritoneal signs. : Painful penile ulcer on the glands with associated bilateral inguinal lymphadenopathy Musculoskeletal: No gross deformities. No edema. Skin: No obvious rashes or erythema. Neuro: Sensory and motor grossly intact. Cranial nerves II through XII grossly intact. Results - Labs CBC & Chem 7: 07/08/18 22:08 07/08/18 22:08 Labs: Laboratory Results - last 24 hr 07/08/18 07/08/18 07/08/18 22:08 22:08 22:08 WBC 1.8 L RBC 3.11 L Hgb 9.6 L Hct 29.1 L MCV 93.7 MCH 30.9 MCHC 33.0 RDW 17.5 H Plt Count 190 MPV 9.7 Prelim Diff (Auto) Slide review pending Neut % (Auto) 22.7 Lymph % (Auto) 30.3 [place] % (Auto) 29.8 H Eos % (Auto) 16.0 H Baso % (Auto) 1.2 Neut # (Auto) 0.4 L* Lymph # (Auto) 0.5 L [place] # (Auto) 0.5 Eos # (Auto) 0.3 Baso # (Auto) 0.0 WBC Differential Manual diff final Seg Neuts % (Manual) 13 L Band Neuts % (Manual) 2 Lymphocytes % (Manual) 39 Monocytes % (Manual) 30 H Eosinophils % (Manual) 16 H Abs Neuts (Manual) 0.3 L* Differential Comment . Platelet Estimate Normal Platelet Morphology Enlarged H Tear Drop Cells 1+ H Ovalocytes 2+ H Sodium 135 L Potassium 3.8 Chloride 100 Carbon Dioxide 26.7 Anion Gap 8 BUN 17 Creatinine 0.99 Estimated GFR Greater than 89 Random Glucose 92 Lactic Acid Calcium 8.8 Total Bilirubin 0.6 AST 17 ALT 17 Alkaline Phosphatase 84 Total Creatine Kinase CK-MB (CK-2) Troponin I Less than 0.02 L B-Natriuretic Peptide Less than 2 Total Protein 8.7 H Albumin 3.7 Lipase 93 Urine Opiates Screen Ur Barbiturates Screen Ur Amphetamines Screen U Benzodiazepines Scrn Urine Cocaine Screen U Cannabinoids Screen 07/08/18 07/08/18 07/08/18 22:08 22:20 22:22 WBC RBC Hgb Hct MCV MCH MCHC RDW Plt Count MPV Prelim Diff (Auto) Neut % (Auto) Lymph % (Auto) [place] % (Auto) Eos % (Auto) Baso % (Auto) Neut # (Auto) Lymph # (Auto) [place] # (Auto) Eos # (Auto) Baso # (Auto) WBC Differential Seg Neuts % (Manual) Band Neuts % (Manual) Lymphocytes % (Manual) Monocytes % (Manual) Eosinophils % (Manual) Abs Neuts (Manual) Differential Comment Platelet Estimate Platelet Morphology Tear Drop Cells Ovalocytes Sodium Potassium Chloride Carbon Dioxide Anion Gap BUN Creatinine Estimated GFR Random Glucose Lactic Acid 0.8 Calcium Total Bilirubin AST ALT Alkaline Phosphatase Total Creatine Kinase 165 CK-MB (CK-2) Less than 1.0 Troponin I B-Natriuretic Peptide Total Protein Albumin Lipase Urine Opiates Screen Neg Ur Barbiturates Screen Neg Ur Amphetamines Screen Neg U Benzodiazepines Scrn Neg Urine Cocaine Screen Neg U Cannabinoids Screen Pos H - Imaging Impressions Chest X-Ray 07/08/18 20:06 CONCLUSION: No acute cardiopulmonary disease demonstrated. Chest CTA 07/08/18 21:44 CONCLUSION: 1. No pulmonary embolus. 2. 2.8 cm focal consolidation or mass in the left upper lobe. This could represent a focal area of pneumonia. Underlying neoplasm cannot be excluded. At the very least that should be followed. This could be further evaluated with a PET FDG study as an outpatient. Caprini VTE Risk Assessment Caprini VTE Risk Assessment: No/Low Risk (score <= 1) Caprini Risk Assessment Model: Point Value = 1 Point Value = 2 Point Value = 3 Point Value = 5 Age 41-60 Minor surgery BMI > 25 kg/m2 Swollen legs Varicose veins or History of unexplained or recurrent spontaneous Oral contraceptives or hormone replacement Sepsis (< 1 month) Serious lung disease, including pneumonia (< 1 month) Abnormal pulmonary function Acute myocardial infarction Congestive heart failure (< 1 month) History of inflammatory bowel disease Medical patient at bed rest Age 61-74 Arthroscopic surgery Major open surgery (> 45 min) Laparoscopic surgery (> 45 min) Malignancy Confined to bed (> 72 hours) Immobilizing plaster cast Central venous access Age >= 75 History of VTE Family history of VTE Factor V Leiden Prothrombin [id number] Lupus anticoagulant Anticardiolipin antibodies Elevated serum homocysteine Heparin-induced thrombocytopenia Other congenital or acquired thrombophilia Stroke (< 1 month) Elective arthroplasty Hip, pelvis, or leg fracture Acute spinal cord injury (< 1 month) Prophylaxis Regimen: Total Risk Factor Score Risk Level Prophylaxis Regimen 0-1 Low Early ambulation 2 Moderate Order ONE of the following: *Sequential Compression Device (SCD) *Heparin 5000 units SQ BID 3-4 Higher Order ONE of the following medications: *Heparin 5000 units SQ TID *Enoxaparin/Lovenox 40 mg SQ daily (WT < 150 kg, CrCl > 30 mL/min) *Enoxaparin/Lovenox 30 mg SQ daily (WT < 150 kg, CrCl > 10-29 mL/min) *Enoxaparin/Lovenox 30 mg SQ BID (WT < 150 kg, CrCl > 30 mL/min) AND/OR *Sequential Compression Device (SCD) 5 or more Highest Order ONE of the following medications: *Heparin 5000 units SQ TID (Preferred with Epidurals) *Enoxaparin/Lovenox 40 mg SQ daily (WT < 150 kg, CrCl > 30 mL/min) *Enoxaparin/Lovenox 30 mg SQ daily (WT < 150 kg, CrCl > 10-29 mL/min) *Enoxaparin/Lovenox 30 mg SQ BID (WT < 150 kg, CrCl > 30 mL/min) AND *Sequential Compression Device (SCD) Assessment and Plan - Plan Assessment/plan: 1. Pneumonia versus mass/shortness of breath Chest CT significant for 2.8 cm focal consolidation versus mass in the left upper lobe CD4 count 31 Patient has not been compliant with his MAC/PCP prophylaxis Azithromycin/Rocephin/doxycycline Infectious disease consulted, appreciate assistance 2. Painful penile ulcer/? Chancroid Antibiotics as above 3. Oropharyngeal candidiasis/? Esophageal candidiasis IV Diflucan 4. Neutropenia Neutropenic precautions Plan as above 5. Chest pain ACS rule out pending; serial troponins/EKGs EKG without signs of ischemia, personally reviewed Initial troponin negative FEN Regular diet Electrolytes: Replete as needed NS at 100 cc/hr
[2018-07-09] MEDS: Sod Chloride 0.9% Inj 1,000 ML IV.CONT SCH ×2 (03:27→16:16)
[2018-07-09] MEDS: Azithromycin Inj 500 MG in Sodium Chlor 0.9% Inj 250 ML IV.SIG SCH (03:28)
[2018-07-09 04:50] LABS: Creatine Kinase 122 U/L (39-308)
[2018-07-09] MEDS: Acetaminophen 325 MG Tablet PO PRN ×2 (08:05→20:13)
[2018-07-09 10:48] LABS: Creatine Kinase 117 U/L (39-308)
[2018-07-09] MEDS: Nystatin/Diphenhydramine/Lidocaine Mouthwash (Adult) 120 ML Botttle SWISH-SWAL SCH ×2 (17:39→20:04)
--- NOTE | 2018-07-09 17:43 | P.CONID ---
History of Present Illness Service: ID Consult date: 07/09/18 Requesting Physician: Alva Benton Reason for Consult: HIV patient with esophageal candidiasis, chancroid, pneumonia vs mass on CT Primary Care Provider: UNKNOWN History of Present Illness: 43 yo male with advanced AIDS CD4 count <50 states compliance but last VL was >5 logs presents with cc of sore throat and difficulty swelling and chest pain CT showed 2.8 cm focal consolidation or mass in the left upper lobe. This could represent a focal area of pneumonia. Underlying neoplasm cannot be excluded. pt endorses fevers, chills and nightsweats + cough productive of clear sputum Review of Systems All other systems reviewed negative except as stated in HPI PMFSH - History History Provided By: Patient - Medical History Medical History: Medical History (Last Reviewed 07/09/18 @ 18:25 by Amalia King MD) HIV (human immunodeficiency virus infection) Lymphoma - Surgical History Surgical History: Surgical History (Last Reviewed 07/09/18 @ 18:25 by Amalia King MD) No history of previous surgery - Family History Family History: Family History (Last Updated 07/09/18 @ 18:25 by Amalia King MD) Other No pertinent family history - Social History I have reviewed the patient's Social History: Yes - Tobacco History Second Hand Smoke Exposure: Yes Tobacco Use In Past 30 Days: Yes Smoking Status: Former smoker Tobacco Type: Cigarettes - Alcohol History How Often Do You Have a Drink Containing Alcohol: Monthly or less - Substance Use History Substance History: Active Abuse - Substance Use Type Marijuana Status: Active Route Used: Inhalation - Travel History Recent Travel in the [place] Within the Last 8 Weeks: No Recent Travel Out of the Country Within the Last 8 Weeks: No - Immunization History Tetanus Immunization: <5 Years Medications and Allergies Active Medications: Active Medications Acetaminophen (Tylenol) 650 mg PO Q4H PRN PRN Reason: Temp > 100.4 Last Admin: 07/09/18 08:05 Dose: 650 mg Bisacodyl (Dulcolax Supp) 10 mg RECTAL DAILY PRN PRN Reason: SEVERE CONSITIPATION Sodium Chloride (Ns Inj) 1,000 mls @ 0 mls/hr IV.SIG BOLUS [facility] Stop: 07/09/18 22:31 Last Infusion: 07/09/18 00:19 Dose: Infused Ceftriaxone Sodium 2,000 mg/ (Sodium Chloride) 100 mls @ 200 mls/hr IV.SIG Q24H [facility] Last Infusion: 07/09/18 03:26 Dose: Infused Doxycycline Hyclate 100 mg/ (Sodium Chloride) 100 mls @ 100 mls/hr IV.SIG Q12H [facility] Last Infusion: 07/09/18 17:38 Dose: Infused Fluconazole (Diflucan 400 Mg Premix Bag) 200 mls @ 100 mls/hr IV.SIG Q24H [facility] Last Admin: 07/09/18 17:39 Dose: 100 mls/hr Sodium Chloride (Ns Inj) 1,000 mls @ 100 mls/hr IV.CONT .Q10H [facility] Last Admin: 07/09/18 16:16 Dose: 100 mls/hr Azithromycin 500 mg/ Sodium (Chloride) 250 mls @ 250 mls/hr IV.SIG Q24H [facility] Last Infusion: 07/09/18 04:17 Dose: Infused Multi-Ingredient Mouthwash/Gargle (Magic Mouthwash Adult Liq) 10 ml SWISH-SWAL QID [facility] Last Admin: 07/09/18 17:39 Dose: 10 ml Ondansetron HCl (Zofran Inj) 4 mg IV.PUSH Q6H PRN PRN Reason: NAUSEA OR VOMITING Sennosides (Senokot) 17.2 mg PO Q12H PRN PRN Reason: Moderate Constipation Sodium Chloride (Ns Flush) 2 ml IV.FLUSH UNSCH PRN PRN Reason: FLUSH AFTER USING IV ACCESS Allergies Allergy/AdvReac Type Severity Reaction Status Date / Time albuterol Allergy Intermediate Hives Verified 03/15/18 16:58 azithromycin Allergy Hives Verified 07/08/18 19:59 Home Medications Medication Instructions Recorded Confirmed Type Unable to Obtain Home Meds 07/08/18 07/08/18 History Exam Vital signs: Vital Signs 07/08/18 19:59 07/08/18 23:41 07/09/18 01:46 Temperature 99.3 F Pulse Rate 115 H 101 H 90 Respiratory Rate 24 18 Blood Pressure 128/86 126/79 Pulse Oximetry 99 97 07/09/18 04:18 07/09/18 08:00 07/09/18 09:00 Temperature 100.5 F H Pulse Rate 93 H 107 H 92 H Respiratory Rate 20 20 16 Blood Pressure 112/64 137/83 Pulse Oximetry 98 97 98 07/09/18 10:00 07/09/18 12:00 07/09/18 13:00 Temperature 98.8 F 98.4 F 97.9 F Pulse Rate 86 84 76 Respiratory Rate 17 14 18 Blood Pressure 106/67 104/75 120/72 Pulse Oximetry 99 99 07/09/18 16:00 07/09/18 17:16 Temperature Pulse Rate 80 Respiratory Rate 18 Blood Pressure 119/72 Pulse Oximetry 100 99 Intake & Output 07/08/18 07/09/18 07/09/18 18:59 06:59 18:59 Intake Total 2550 / 2550 1100 / 1100 Balance 2550 / 2550 1100 / 1100 Weight 85.729 kg Intake: IV 2550 / 2550 1100 / 1100 NS Inj 1,000 ML @ 100 mls/hr IV 1000 / 1000 .CONT .Q10H [facility] Rx#:[id number] Azithromycin Inj 500 MG In NS 250 / 250 Inj 250 ML @ 250 mls/hr IV.SIG Q24H [facility] Rx#:[id number] Doxy 100 Inj 100 MG In NS Inj 100 / 100 100 / 100 100 ML @ 100 mls/hr IV.SIG Q12H [facility] Rx#:[id number] Diflucan 200 mg Premix Bag 100 100 / 100 ML @ 100 mls/hr IV.SIG ONCE ONE Rx#:[id number] NS Inj 1,000 ML @ Wide Open IV. 1999 SIG BOLUS [facility] Rx#:[id number] Rocephin Inj 2,000 MG In NS Inj 100 / 100 100 ML @ 200 mls/hr IV.SIG Q24H [facility] Rx#:[id number] - Constitutional no acute distress, obese - Routine HEENT Exam Head: Present: normocephalic, atraumatic Eye: Present: EOMI, PERRL ENT: Present: mucous membranes moist, oropharynx clear Comments: No opral thrush - Routine Neck Exam Present: supple, full ROM - Routine Respiratory Exam Present: decreased breath sounds, CTA bilaterally. Absent: accessory muscle use - Routine Cardiovascular Exam Present: RRR, S1, S2. Absent: murmur, gallop, rubs - Routine Abdominal Exam Present: soft, normoactive bowel sounds. Absent: tenderness, distended, organomegaly, mass - Routine Extremities Exam Absent: cyanosis, clubbing, edema - Routine Skin Exam Present: lesions (multiple scattered lesions cw eosinophilic folliculitis) - Routine Neurological Exam Present: alert, oriented X3, CN II-XII intact, moving all extremities, hearing grossly intact, normal speech - Routine Psychiatric Exam Present: normal affect. Absent: auditory hallucinations, visual hallucinations Results - Labs CBC & Chem 7: 07/08/18 22:08 07/08/18 22:08 Labs: Laboratory Results - last 24 hr 07/08/18 07/08/18 07/08/18 22:08 22:08 22:08 WBC 1.8 L RBC 3.11 L Hgb 9.6 L Hct 29.1 L MCV 93.7 MCH 30.9 MCHC 33.0 RDW 17.5 H Plt Count 190 MPV 9.7 Prelim Diff (Auto) Slide review pending Neut % (Auto) 22.7 Lymph % (Auto) 30.3 [place] % (Auto) 29.8 H Eos % (Auto) 16.0 H Baso % (Auto) 1.2 Neut # (Auto) 0.4 L* Lymph # (Auto) 0.5 L [place] # (Auto) 0.5 Eos # (Auto) 0.3 Baso # (Auto) 0.0 WBC Differential Manual diff final Seg Neuts % (Manual) 13 L Band Neuts % (Manual) 2 Lymphocytes % (Manual) 39 Monocytes % (Manual) 30 H Eosinophils % (Manual) 16 H Abs Neuts (Manual) 0.3 L* Differential Comment . Platelet Estimate Normal Platelet Morphology Enlarged H Tear Drop Cells 1+ H Ovalocytes 2+ H Sodium 135 L Potassium 3.8 Chloride 100 Carbon Dioxide 26.7 Anion Gap 8 BUN 17 Creatinine 0.99 Estimated GFR Greater than 89 Random Glucose 92 Lactic Acid Calcium 8.8 Total Bilirubin 0.6 AST 17 ALT 17 Alkaline Phosphatase 84 Total Creatine Kinase CK-MB (CK-2) Troponin I Less than 0.02 L B-Natriuretic Peptide Less than 2 Total Protein 8.7 H Albumin 3.7 Lipase 93 Urine Opiates Screen Ur Barbiturates Screen Ur Amphetamines Screen U Benzodiazepines Scrn Urine Cocaine Screen U Cannabinoids Screen 07/08/18 07/08/18 07/08/18 22:08 22:20 22:22 WBC RBC Hgb Hct MCV MCH MCHC RDW Plt Count MPV Prelim Diff (Auto) Neut % (Auto) Lymph % (Auto) [place] % (Auto) Eos % (Auto) Baso % (Auto) Neut # (Auto) Lymph # (Auto) [place] # (Auto) Eos # (Auto) Baso # (Auto) WBC Differential Seg Neuts % (Manual) Band Neuts % (Manual) Lymphocytes % (Manual) Monocytes % (Manual) Eosinophils % (Manual) Abs Neuts (Manual) Differential Comment Platelet Estimate Platelet Morphology Tear Drop Cells Ovalocytes Sodium Potassium Chloride Carbon Dioxide Anion Gap BUN Creatinine Estimated GFR Random Glucose Lactic Acid 0.8 Calcium Total Bilirubin AST ALT Alkaline Phosphatase Total Creatine Kinase 165 CK-MB (CK-2) Less than 1.0 Troponin I B-Natriuretic Peptide Total Protein Albumin Lipase Urine Opiates Screen Neg Ur Barbiturates Screen Neg Ur Amphetamines Screen Neg U Benzodiazepines Scrn Neg Urine Cocaine Screen Neg U Cannabinoids Screen Pos H 07/09/18 07/09/18 04:22 09:45 WBC RBC Hgb Hct MCV MCH MCHC RDW Plt Count MPV Prelim Diff (Auto) Neut % (Auto) Lymph % (Auto) [place] % (Auto) Eos % (Auto) Baso % (Auto) Neut # (Auto) Lymph # (Auto) [place] # (Auto) Eos # (Auto) Baso # (Auto) WBC Differential Seg Neuts % (Manual) Band Neuts % (Manual) Lymphocytes % (Manual) Monocytes % (Manual) Eosinophils % (Manual) Abs Neuts (Manual) Differential Comment Platelet Estimate Platelet Morphology Tear Drop Cells Ovalocytes Sodium Potassium Chloride Carbon Dioxide Anion Gap BUN Creatinine Estimated GFR Random Glucose Lactic Acid Calcium Total Bilirubin AST ALT Alkaline Phosphatase Total Creatine Kinase 122 117 CK-MB (CK-2) Less than 1.0 Less than 1.0 Troponin I Less than 0.02 L Less than 0.02 L B-Natriuretic Peptide Total Protein Albumin Lipase Urine Opiates Screen Ur Barbiturates Screen Ur Amphetamines Screen U Benzodiazepines Scrn Urine Cocaine Screen U Cannabinoids Screen - Imaging Impressions Chest X-Ray 07/08/18 20:06 CONCLUSION: No acute cardiopulmonary disease demonstrated. Chest CTA 07/08/18 21:44 CONCLUSION: 1. No pulmonary embolus. 2. 2.8 cm focal consolidation or mass in the left upper lobe. This could represent a focal area of pneumonia. Underlying neoplasm cannot be excluded. At the very least that should be followed. This could be further evaluated with a PET FDG study as an outpatient. Assessment and Plan - Plan HIV/AIDS Pulmonary mass vs dense infiltrate - bacterial ? mycobacterial? 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 BAL vs bx CD4 count CT was dw radiologist Dr Dsouza
--- NOTE | 2018-07-09 18:16 | ECG ---
Date Performed: 07/08/2018 Time Performed: 21:40:21 PTAGE: 43 years EKG: SINUS TACHYCARDIA Compared to previous tracing, HR is slightly faster, otherwise no signifi cant change ABNORMAL RHYTHM ECG PREVIOUS TRACING : 03/16/2018 04.37 DOCTOR: Jordan Goodwin Interpretating Date/Time 07/09/2018 18:16:23
--- NOTE | 2018-07-09 18:17 | ECG ---
Date Performed: 07/09/2018 Time Performed: 04:08:22 PTAGE: 43 years EKG: Sinus rhythm Compared to previous tracing, HR is slightly slower NORMAL ECG NO PREVIOUS TRACING DOCTOR: Jordan Goodwin Interpretating Date/Time 07/09/2018 18:16:38
[2018-07-10] MEDS: Sod Chloride 0.9% Inj 1,000 ML IV.CONT SCH ×2 (02:25→08:36)
[2018-07-10] MEDS: Azithromycin Inj 500 MG in Sodium Chlor 0.9% Inj 250 ML IV.SIG SCH (04:12)
[2018-07-10] MEDS: Acetaminophen 325 MG Tablet PO PRN (08:35)
[2018-07-10] MEDS: Nystatin/Diphenhydramine/Lidocaine Mouthwash (Adult) 120 ML Botttle SWISH-SWAL SCH ×4 (08:35→20:01)
[2018-07-10 09:40] LABS: Baso % (Auto) 0.7 % (0.0-2.0); Eos # (Auto) 0.4 th/mm3 (0.0-0.4); Eos % (Auto) 25.8 % (0.0-4.0); Hematocrit 27.6 % (39.0-51.0); Hemoglobin 8.9 gm/dL (13.0-17.0); Lymph # (Auto) 0.4 th/mm3 (1.0-4.8); Mean Corpuscular HGB Conc 32.2 % (32.0-36.0); Mean Corpuscular Hemoglobin 30.9 pg (27.0-34.0); Mean Platelet Volume 9.5 fL (7.0-11.0); Mono # (Auto) 0.3 th/mm3 (0.0-0.9); Mono % (Auto) 21.1 % (0.0-8.0); Neut # (Auto) 0.4 th/mm3 (1.8-7.7); Neut % (Auto) 27.4 % (16.0-70.0); Platelet Count 168 th/mm3 (150-450); Red Blood Count 2.88 mil/mm3 (4.50-5.90); Red Cell Distribution Width 17.4 % (11.6-17.2); White Blood Count 1.5 th/mm3 (4.0-11.0)
[2018-07-10 10:11] LABS: Alanine Aminotransferase 12 U/L (12-78); Anion Gap 5 meq/L (5-15); Aspartate Aminotransferase 14 U/L (15-37); Blood Urea Nitrogen 11 mg/dL (7-18); Calcium 8.3 mg/dL (8.5-10.1); Carbon Dioxide 25.6 meq/L (21.0-32.0); Chloride 108 meq/L (98-107); Glomerular Filtration Rate Greater Than 89 mL/min (>89); Glucose,Random 87 mg/dL (74-106); Potassium 4.1 meq/L (3.5-5.1); Sodium 139 meq/L (136-145)
[2018-07-10 10:12] LABS: Alkaline Phosphatase 72 U/L (45-117); Total Protein 7.1 g/dL (6.4-8.2)
[2018-07-10 10:15] LABS: Eosinophils 24 % (0-4); Lymphocytes 17 % (9-44); Metamyelocytes 2 % (0-1); Monocytes 29 % (0-8); Ovalocytes 1+
[2018-07-10 10:16] LABS: Platelet Estimate Normal (Normal)
--- NOTE | 2018-07-10 10:22 | P.PN ---
Subjective Interval history: Patient doing well. Patient is tolerating p.o., voiding/stooling well. No overnight events per RN. Physical Exam Vital signs: Vital Signs 07/09/18 12:00 07/09/18 13:00 07/09/18 16:00 Temperature 98.4 F 97.9 F Pulse Rate 84 76 80 Respiratory Rate 14 18 18 Blood Pressure 104/75 120/72 119/72 Pulse Oximetry 99 100 07/09/18 17:16 07/09/18 19:49 07/09/18 19:59 Temperature 100.6 F H Pulse Rate 78 Respiratory Rate 18 Blood Pressure 109/56 L Pulse Oximetry 99 95 95 07/09/18 20:00 07/10/18 00:00 07/10/18 04:00 Temperature 98.2 F 100.1 F H Pulse Rate 87 83 87 Respiratory Rate 18 18 Blood Pressure 118/72 120/68 Pulse Oximetry 98 98 07/10/18 08:00 Temperature 99.8 F H Pulse Rate 91 H Respiratory Rate 20 Blood Pressure 122/73 Pulse Oximetry 97 Intake & Output 07/09/18 07/10/18 07/10/18 18:59 06:59 18:59 Intake Total 1100 / 1100 1650 / 1650 1000 / 1000 Output Total 300 / 300 550 / 550 Balance 800 / 800 1100 / 1100 1000 / 1000 Weight 91.7 kg Intake: IV 1100 / 1100 1650 / 1650 1000 / 1000 NS Inj 1,000 ML @ 100 mls/hr IV 1000 / 1000 1000 / 1000 1000 / 1000 .CONT .Q10H [facility] Rx#:[id number] Azithromycin Inj 500 MG In NS 250 / 250 Inj 250 ML @ 250 mls/hr IV.SIG Q24H [facility] Rx#:[id number] Doxy 100 Inj 100 MG In NS Inj 100 / 100 100 / 100 100 ML @ 100 mls/hr IV.SIG Q12H [facility] Rx#:[id number] Diflucan 400 mg Premix Bag 200 200 / 200 ML @ 100 mls/hr IV.SIG Q24H [facility] Rx#:[id number] Rocephin Inj 2,000 MG In NS Inj 100 / 100 100 ML @ 200 mls/hr IV.SIG Q24H [facility] Rx#:[id number] Output: Urine 300 / 300 550 / 550 Other: Date of Last Bowel Movement 07/08/18 Narrative: GENERAL: Well-nourished -[place] male, in no acute distress, lying comfortably in bed SKIN: Warm and dry. HEENT: Normocephalic. No scleral icterus. No injection or drainage. PERRLA. MOM , minimal white plaques in oropharynx. NECK: Supple, trachea midline. No JVD or lymphadenopathy. CARDIOVASCULAR: Regular rate and rhythm without murmurs, gallops, or rubs. RESPIRATORY: Breath sounds equal bilaterally. No accessory muscle use. GASTROINTESTINAL: Abdomen soft, non-tender, nondistended. MUSCULOSKELETAL: No cyanosis, or edema. BACK: Nontender without obvious deformity. No CVA tenderness. NEURO: AAO x3, no focal deficits Results - Labs CBC & Chem 7: 07/10/18 07:59 07/10/18 07:59 Laboratory Results - last 24 hr 07/09/18 07/10/18 09:45 07:59 WBC 1.5 L RBC 2.88 L Hgb 8.9 L Hct 27.6 L MCV 96.0 MCH 30.9 MCHC 32.2 RDW 17.4 H Plt Count 168 MPV 9.5 Prelim Diff (Auto) Slide review pending Neut % (Auto) 27.4 Lymph % (Auto) 25.0 [place] % (Auto) 21.1 H Eos % (Auto) 25.8 H Baso % (Auto) 0.7 Neut # (Auto) 0.4 L* Lymph # (Auto) 0.4 L [place] # (Auto) 0.3 Eos # (Auto) 0.4 Baso # (Auto) 0.0 Differential Comment . Total Creatine Kinase 117 CK-MB (CK-2) Less than 1.0 Troponin I Less than 0.02 L Microbiology 07/09/18 19:44 Sputum - Expectorated Sputum Gram Stain - Final 07/08/18 22:22 Urine - Clean Catch Urine Streptococcus pneumoniae Antigen ( M - Final Presumptive negative for streptococcus pneumoniae antigen, suggesting no current or recent infection. Infection due to Streptococcus pneumoniae cannot be ruled out since the antigen present in the sample may be below the detection limit of the test. 07/08/18 22:22 Urine - Clean Catch Urine Legionella Antigen - Final Presumptive negative for Legionella pneumophila serogroup 1 antigen in urine, suggesting no recent or recurrent infection. Infection due to Legionella cannot be ruled out since other serogroups and species may cause disease, antigen may not be present in urine in early infection, and the level of antigen present in the urine may be below the detection limit of the test. Assessment and Plan - Assessment (1) HIV (human immunodeficiency virus infection) Code(s): B20 - Human immunodeficiency virus [HIV] disease Status: Chronic (2) Dara esophagitis Code(s): B37.81 - Candidal esophagitis Status: Acute - Plan This is a 43-year-old CM with a PMHx of HTN, HIV/AIDS (last CD4 count 31), and Hx of Burkitt's Lymphoma admitted for inpatient management of pneumonia versus pulmonary mass, on antibiotics and managed by ID, HD #2 1. Left Upper Lobe Pneumonia versus Mass Chest CT significant for 2.8 cm focal consolidation versus mass in the left upper lobe Cont. Azithromycin, Ceftriaxone, and Doxycycline started on 07/09 Sputum Cx from 07/09- Gram stain heavy rosita, AFB pending, Fungal Cx pending Neg Strep, Neg Legionella, Neg Flu Infectious disease consulted, appreciate assistance with mgmt Pulmonary consulted, appreciate assistance Recommendations Per ID 07/09: sputum culture: bacterial, AFB, fungal TB isolation consult pulmonary: ? BAL vs bx CD4 count 2. HIV/AIDS Pending CD4 count Holding antiretrovirals at this time, resume per ID reccs Patient has not been compliant with his MAC/PCP prophylaxis 3. Oropharyngeal candidiasis/Esophageal Candidiasis, improving Cont. Fluconazole started on 4. Neutropenia Cont. Neutropenic precautions WBC 1.5 from 1.8 Cont. to monitor 5. Anemia Hgb 8.9 from 9.6 Cont. to monitor Will obtain iron studies 6. HTN BP stable Continue home Lisinopril Continue to monitor 7. Hx of Burkitt's Lymphoma Noted. 8. Anorexia Likely due to advanced disease Patient tolerating p.o. but with decreased appetite We will start Megace daily to see if it assists with sx 9. DVT PPX: SCD's 10. Dispo: Pending CD4 count and ID recommendations, follow-up pulmonary recommendations. Code Status: full Discussed Condition With: patient, RN
[2018-07-10] MEDS: Lisinopril 5 MG Tablet PO SCH (12:19)
--- NOTE | 2018-07-10 16:50 | MB ---
cc: Sudhir Peguero MD DATE: 07/10/2018 REASON FOR CONSULTATION: Lung mass, malignancy suspect versus infection. HISTORY OF PRESENT ILLNESS: The patient is a 43-year-old male with a history of HIV infection and AIDS, CD4 count of 31, history of Burkitt lymphoma, presents to the emergency room with increasing shortness of breath for over a week. States he did have a fever and chills as well as night sweats. He complains of rib pain, poor appetite, difficulty swallowing. He has history of oral thrush. He is on prophylactic therapy for MAC and PCP. Denies history of hemoptysis, TB or previous industrial exposure. PAST MEDICAL HISTORY: HIV infection, as mentioned above as well as history of lymphoma. SOCIAL HISTORY: Smokes a pack a day for the last 20 years. History of drug use, namely marijuana. MEDICATIONS: Include: 1. Zithromax. 2. Ceftriaxone. 3. Doxycycline. 4. Diflucan. FAMILY HISTORY: Noncontributory. REVIEW OF SYSTEMS: A 12-point review of systems as per HPI and past history, otherwise negative. ALLERGIES: Listed to ALBUTEROL AND ZITHROMAX. However, the patient is on Zithromax long-term. PHYSICAL EXAMINATION: GENERAL: The patient is alert, in no distress. VITAL SIGNS: Temperature 98, pulse 80, respirations 18, blood pressure 128/74. HEENT: Unremarkable. Eyes: No icterus. NECK: No adenopathy or thyroid enlargement. Central trachea. CHEST: There is no dullness to percussion. Clear to auscultation. CARDIOVASCULAR: PMI distant. S1, S2 audible. No murmur. No rub. ABDOMEN: Lax, audible bowel sounds. PSYCHIATRIC: No clubbing, cyanosis or edema. LABORATORY DATA: White count 1.8, hemoglobin 9.6, hematocrit 29, platelets 190,000. Sodium 135, potassium 3.8, BUN 17, creatinine 0.9. CT angiogram with 2.8 cm density in the left upper lobe, infectious versus malignancy. IMPRESSION: 1. Mass, left upper lobe malignancy versus infection. 2. Human immunodeficiency virus infection. 3. Oral candidiasis. 4. Neutropenia. PLAN: The patient is seen by infectious disease and antibiotic therapy has been instituted. Given the patient's immune compromise and the possibility of malignancy or atypical infection, a needle biopsy would be appropriate in obtaining appropriate cultures as well as a search for malignancy. Meanwhile, continue his antibiotics and follow his course closely and depending on progress, proceed further. I do thank you for asking me to partake in Abiel's care. Sudhir Peguero MD WWW/ct , 01:48 PM , 01:56 PM
--- NOTE | 2018-07-10 20:43 | ECG ---
Date Performed: 07/09/2018 Time Performed: 12:18:38 PTAGE: 43 years EKG: Sinus rhythm NORMAL ECG PREVIOUS TRACING : 07/09/2018 04.08 Since the previous tracing, no significant change noted DOCTOR: Teto Olivo Interpretating Date/Time 07/10/2018 20:42:56
[2018-07-11] MEDS: Azithromycin Inj 500 MG in Sodium Chlor 0.9% Inj 250 ML IV.SIG SCH (02:54)
[2018-07-11] MEDS: Nystatin/Diphenhydramine/Lidocaine Mouthwash (Adult) 120 ML Botttle SWISH-SWAL SCH ×4 (10:26→20:11)
[2018-07-11] MEDS: Lisinopril 5 MG Tablet PO SCH (10:37)
[2018-07-11 11:22] LABS: Baso % (Auto) 0.6 % (0.0-2.0); Eos # (Auto) 0.4 th/mm3 (0.0-0.4); Eos % (Auto) 26.8 % (0.0-4.0); Hemoglobin 8.5 gm/dL (13.0-17.0); Lymph # (Auto) 0.4 th/mm3 (1.0-4.8); Lymph % (Auto) 25.5 % (9.0-44.0); Mean Corpuscular HGB Conc 32.5 % (32.0-36.0); Mean Corpuscular Hemoglobin 30.8 pg (27.0-34.0); Mean Platelet Volume 9.3 fL (7.0-11.0); Mono # (Auto) 0.4 th/mm3 (0.0-0.9); Mono % (Auto) 25.5 % (0.0-8.0); Neut # (Auto) 0.3 th/mm3 (1.8-7.7); Neut % (Auto) 21.6 % (16.0-70.0); Platelet Count 168 th/mm3 (150-450); Red Blood Count 2.74 mil/mm3 (4.50-5.90); Red Cell Distribution Width 16.7 % (11.6-17.2); White Blood Count 1.5 th/mm3 (4.0-11.0)
[2018-07-11 11:42] LABS: Alanine Aminotransferase 11 U/L (12-78); Albumin 2.9 g/dL (3.4-5.0); Anion Gap 8 meq/L (5-15); Aspartate Aminotransferase 12 U/L (15-37); Blood Urea Nitrogen 9 mg/dL (7-18); Calcium 8.6 mg/dL (8.5-10.1); Carbon Dioxide 24.4 meq/L (21.0-32.0); Chloride 107 meq/L (98-107); Glomerular Filtration Rate Greater Than 89 mL/min (>89); Glucose,Random 72 mg/dL (74-106); Potassium 3.9 meq/L (3.5-5.1); Sodium 139 meq/L (136-145)
[2018-07-11 11:43] LABS: Iron 23 mcg/dL (65-175)
[2018-07-11 11:46] LABS: % Iron Saturation 12.5 % (20-50); Alkaline Phosphatase 72 U/L (45-117); Total Iron Binding Capacity 183 mcg/dL (250-450)
[2018-07-11 12:06] LABS: Eosinophils 23 % (0-4); Lymphocytes 25 % (9-44); Monocytes 23 % (0-8)
[2018-07-11 12:09] LABS: Platelet Estimate Normal (Normal)
[2018-07-11 12:10] LABS: Ovalocytes 2+; Tear Drop Cells 1+
--- NOTE | 2018-07-11 14:23 | P.PN ---
Subjective Interval history: She doing well, reports that he is anxious to go home. Patient is tolerating p.o., voiding/stooling well. No overnight concerns per RN. Physical Exam Vital signs: Vital Signs 07/10/18 14:14 07/10/18 16:00 07/10/18 20:00 Temperature 97.9 F 99.3 F Pulse Rate 89 84 Respiratory Rate 19 20 Blood Pressure 125/68 132/73 Pulse Oximetry 99 98 100 07/10/18 20:08 07/10/18 23:50 07/11/18 04:00 Temperature 98.5 F 98.9 F Pulse Rate 80 87 Respiratory Rate 20 20 Blood Pressure 134/76 117/64 Pulse Oximetry 97 98 99 07/11/18 08:00 Temperature 98.5 F Pulse Rate 82 Respiratory Rate Blood Pressure 125/61 Pulse Oximetry 100 Intake & Output 07/10/18 07/11/18 07/11/18 18:59 06:59 18:59 Intake Total 2100 / 2100 650 / 650 Output Total 800 / 800 Balance 1300 / 1300 650 / 650 Weight 89.9 kg Intake: IV 2100 / 2100 650 / 650 NS Inj 1,000 ML @ 100 mls/hr IV 1999 / 1999 .CONT .Q10H M[facility]OZA Rx#:[id number] Azithromycin Inj 500 MG In NS 250 / 250 Inj 250 ML @ 250 mls/hr IV.SIG Q24H [facility]OZA Rx#:[id number] Doxy 100 Inj 100 MG In NS Inj 100 / 100 100 / 100 100 ML @ 100 mls/hr IV.SIG Q12H [facility] Rx#:[id number] Diflucan 400 mg Premix Bag 200 200 / 200 ML @ 100 mls/hr IV.SIG Q24H [facility]ZA Rx#:[id number] Rocephin Inj 2,000 MG In NS Inj 100 / 100 100 ML @ 200 mls/hr IV.SIG Q24H [facility]ENDO[facility] Rx#:[id number] Output: Urine 800 / 800 Other: # Voids 6 Date of Last Bowel Movement 07/08/18 07/10/18 Narrative: GENERAL: Well-nourished -[place] male, in no acute distress, lying comfortably in bed SKIN: Warm and dry. HEENT: Normocephalic. No scleral icterus. No injection or drainage. PERRLA. MOM , minimal white plaques in oropharynx. NECK: Supple, trachea midline. No JVD or lymphadenopathy. CARDIOVASCULAR: Regular rate and rhythm without murmurs, gallops, or rubs. RESPIRATORY: Breath sounds equal bilaterally. No accessory muscle use. GASTROINTESTINAL: Abdomen soft, non-tender, nondistended. MUSCULOSKELETAL: No cyanosis, or edema. BACK: Nontender without obvious deformity. No CVA tenderness. NEURO: AAO x3, no focal deficits Results - Labs CBC & Chem 7: 07/11/18 09:00 07/11/18 09:00 Laboratory Results - last 24 hr 07/11/18 07/11/18 09:00 09:00 WBC 1.5 L RBC 2.74 L Hgb 8.5 L Hct 26.0 L MCV 95.0 MCH 30.8 MCHC 32.5 RDW 16.7 Plt Count 168 MPV 9.3 Prelim Diff (Auto) Slide review pending Neut % (Auto) 21.6 Lymph % (Auto) 25.5 [place] % (Auto) 25.5 H Eos % (Auto) 26.8 H Baso % (Auto) 0.6 Neut # (Auto) 0.3 L* Lymph # (Auto) 0.4 L [place] # (Auto) 0.4 Eos # (Auto) 0.4 Baso # (Auto) 0.0 WBC Differential Manual diff final Seg Neuts % (Manual) 24 Band Neuts % (Manual) 5 Lymphocytes % (Manual) 25 Monocytes % (Manual) 23 H Eosinophils % (Manual) 23 H Abs Neuts (Manual) 0.4 L* Differential Comment . Platelet Estimate Normal Platelet Morphology Enlarged H Tear Drop Cells 1+ H Ovalocytes 2+ H Keratocytes Occ H Sodium 139 Potassium 3.9 Chloride 107 Carbon Dioxide 24.4 Anion Gap 8 BUN 9 Creatinine 0.75 Estimated GFR Greater than 89 Random Glucose 72 L Calcium 8.6 Iron 23 L TIBC 183 L % Saturation 12.5 L Total Bilirubin 0.3 AST 12 L ALT 11 L Alkaline Phosphatase 72 Total Protein 7.0 Albumin 2.9 L Microbiology 07/09/18 19:44 Sputum - Expectorated Sputum Gram Stain - Final 07/09/18 19:44 Sputum - Expectorated Sputum Sputum Culture - Preliminary Heavy growth normal respiratory rosita at 24 hours 07/10/18 11:35 Blood - Peripheral Aerobic Blood Culture - Preliminary No growth in 1 day 07/10/18 11:35 Blood - Peripheral Anaerobic Blood Culture - Preliminary No growth in 1 day 07/10/18 11:20 Blood - Peripheral Aerobic Blood Culture - Preliminary No growth in 1 day 07/10/18 11:20 Blood - Peripheral Anaerobic Blood Culture - Preliminary No growth in 1 day Assessment and Plan - Assessment (1) HIV (human immunodeficiency virus infection) Code(s): B20 - Human immunodeficiency virus [HIV] disease Status: Chronic (2) Dara esophagitis Code(s): B37.81 - Candidal esophagitis Status: Acute - Plan This is a 43-year-old CM with a PMHx of HTN, HIV/AIDS (last CD4 count 31), and Hx of Burkitt's Lymphoma admitted for inpatient management of pneumonia versus pulmonary mass, on antibiotics and managed by ID, HD #3 1. Left Upper Lobe Pneumonia versus Mass Chest CT significant for 2.8 cm focal consolidation versus mass in the left upper lobe Cont. Azithromycin, Ceftriaxone, and Doxycycline started on 07/09 Sputum Cx from 07/09- Gram stain heavy rosita, AFB pending, Fungal Cx pending Neg Strep, Neg Legionella, Neg Flu Infectious disease consulted, appreciate assistance with mgmt Pulmonary consulted, appreciate assistance Bld Cx from 07/10 NG at 1 day Recommendations Per ID 07/09: sputum culture: bacterial, AFB, fungal TB isolation consult pulmonary: ? BAL vs bx CD4 count Reccs Per Pulm 07/10: Given the patient's immune compromise and the possibility of malignancy or atypical infection, a needle biopsy would be appropriate in obtaining appropriate cultures as well as a search for malignancy. Meanwhile, continue his antibiotics and follow his course closely and depending on progress, proceed further. 2. HIV/AIDS Pending CD4 count Resumed antiretrovirals at this time, Atoraquone, Darunavir, Tivicay, Norvir, and Tenofovir, adjust per ID reccs Patient has not been compliant with his MAC/PCP prophylaxis 3. Oropharyngeal candidiasis/Esophageal Candidiasis, improving Cont. Fluconazole started on 4. Neutropenia Cont. Neutropenic precautions WBC 1.5 today Cont. to monitor 5. Anemia Secondary to chronic disease/DILSHAD Hgb 8.5 from 8.9 Cont. to monitor DILSHAD per studies, Rx FeSulfate 6. hx of HTN BP stable Continue home Lisinopril Continue to monitor 7. Hx of Burkitt's Lymphoma Noted. 8. Anorexia, improved Likely due to advanced disease Patient tolerating p.o. but with decreased appetite Cont. Megace daily to see if it assists with sx 9. DVT PPX: SCD's 10. Dispo: Pending CD4 count and ID recommendations, follow-up pulmonary recommendations, plan for needle bx., RN to confirm date and timing of procedure , will place n.p.o. at midnight in case. Code Status: full Discussed Condition With: patient, RN, family
[2018-07-11] MEDS: Ferrous Sulfate 325 MG Tablet PO SCH (15:54)
[2018-07-11] MEDS: Tenofovir 300 MG Tablet PO SCH (15:55)
--- NOTE | 2018-07-11 16:16 | P.PN ---
Subjective Interval history: ALERT NAD NO SOB Physical Exam Vital signs: Vital Signs 07/10/18 20:00 07/10/18 20:08 07/10/18 23:50 Temperature 99.3 F 98.5 F Pulse Rate 84 80 Respiratory Rate 20 20 Blood Pressure 132/73 134/76 Pulse Oximetry 100 97 98 07/11/18 04:00 07/11/18 08:00 07/11/18 15:52 Temperature 98.9 F 98.5 F 99.8 F H Pulse Rate 87 82 78 Respiratory Rate 20 18 Blood Pressure 117/64 125/61 118/56 L Pulse Oximetry 99 100 98 Intake & Output 07/10/18 07/11/18 07/11/18 18:59 06:59 18:59 Intake Total 2100 / 2100 650 / 650 Output Total 800 / 800 Balance 1300 / 1300 650 / 650 Weight 89.9 kg Intake: IV 2100 / 2100 650 / 650 NS Inj 1,000 ML @ 100 mls/hr IV 1999 / 1999 .CONT .Q10H [facility] Rx#:[id number] Azithromycin Inj 500 MG In NS 250 / 250 Inj 250 ML @ 250 mls/hr IV.SIG Q24H [facility]END[facility] Rx#:[id number] Doxy 100 Inj 100 MG In NS Inj 100 / 100 100 / 100 100 ML @ 100 mls/hr IV.SIG Q12H [facility] Rx#:[id number] Diflucan 400 mg Premix Bag 200 200 / 200 ML @ 100 mls/hr IV.SIG Q24H [facility] Rx#:[id number] Rocephin Inj 2,000 MG In NS Inj 100 / 100 100 ML @ 200 mls/hr IV.SIG Q24H [facility] Rx#:[id number] Output: Urine 800 / 800 Other: # Voids 6 Date of Last Bowel Movement 07/08/18 07/10/18 Narrative: GENERAL: Well-nourished -[place] male, in no acute distress, lying comfortably in bed SKIN: Warm and dry. HEENT: Normocephalic. No scleral icterus. No injection or drainage. PERRLA. MOM , minimal white plaques in oropharynx. NECK: Supple, trachea midline. No JVD or lymphadenopathy. CARDIOVASCULAR: Regular rate and rhythm without murmurs, gallops, or rubs. RESPIRATORY: Breath sounds equal bilaterally. No accessory muscle use. GASTROINTESTINAL: Abdomen soft, non-tender, nondistended. MUSCULOSKELETAL: No cyanosis, or edema. BACK: Nontender without obvious deformity. No CVA tenderness. NEURO: AAO x3, no focal deficits Results - Labs CBC & Chem 7: 07/11/18 09:00 07/11/18 09:00 Laboratory Results - last 24 hr 07/11/18 07/11/18 09:00 09:00 WBC 1.5 L RBC 2.74 L Hgb 8.5 L Hct 26.0 L MCV 95.0 MCH 30.8 MCHC 32.5 RDW 16.7 Plt Count 168 MPV 9.3 Prelim Diff (Auto) Slide review pending Neut % (Auto) 21.6 Lymph % (Auto) 25.5 [place] % (Auto) 25.5 H Eos % (Auto) 26.8 H Baso % (Auto) 0.6 Neut # (Auto) 0.3 L* Lymph # (Auto) 0.4 L [place] # (Auto) 0.4 Eos # (Auto) 0.4 Baso # (Auto) 0.0 WBC Differential Manual diff final Seg Neuts % (Manual) 24 Band Neuts % (Manual) 5 Lymphocytes % (Manual) 25 Monocytes % (Manual) 23 H Eosinophils % (Manual) 23 H Abs Neuts (Manual) 0.4 L* Differential Comment . Platelet Estimate Normal Platelet Morphology Enlarged H Tear Drop Cells 1+ H Ovalocytes 2+ H Keratocytes Occ H Sodium 139 Potassium 3.9 Chloride 107 Carbon Dioxide 24.4 Anion Gap 8 BUN 9 Creatinine 0.75 Estimated GFR Greater than 89 Random Glucose 72 L Calcium 8.6 Iron 23 L TIBC 183 L % Saturation 12.5 L Total Bilirubin 0.3 AST 12 L ALT 11 L Alkaline Phosphatase 72 Total Protein 7.0 Albumin 2.9 L Microbiology 07/09/18 19:44 Sputum - Expectorated Sputum Gram Stain - Final 07/09/18 19:44 Sputum - Expectorated Sputum Sputum Culture - Preliminary Heavy growth normal respiratory rosita at 24 hours 07/10/18 11:35 Blood - Peripheral Aerobic Blood Culture - Preliminary No growth in 1 day 07/10/18 11:35 Blood - Peripheral Anaerobic Blood Culture - Preliminary No growth in 1 day 07/10/18 11:20 Blood - Peripheral Aerobic Blood Culture - Preliminary No growth in 1 day 07/10/18 11:20 Blood - Peripheral Anaerobic Blood Culture - Preliminary No growth in 1 day Assessment and Plan - Plan MARY ELLEN MASS/INFILTRATE PLAN NEEDLE BX ANTIBX PER ID
[2018-07-11] MEDS: Acetaminophen 325 MG Tablet PO PRN (17:22)
[2018-07-11] MEDS: ATOVAQUONE 750 MG/5 ML PO SCH (17:22)
[2018-07-11] MEDS: DARUNAVIR 600 MG PO SCH (20:12)
[2018-07-12] MEDS: Azithromycin Inj 500 MG in Sodium Chlor 0.9% Inj 250 ML IV.SIG SCH (02:20)
[2018-07-12] MEDS: Acetaminophen 325 MG Tablet PO PRN ×2 (02:45→20:29)
[2018-07-12 07:39] LABS: Hemoglobin 8.2 gm/dL (13.0-17.0); Mean Corpuscular HGB Conc 32.7 % (32.0-36.0); Mean Corpuscular Volume 94.8 fL (80.0-100.0); Mean Platelet Volume 9.1 fL (7.0-11.0); Platelet Count 162 th/mm3 (150-450); Red Blood Count 2.64 mil/mm3 (4.50-5.90); Red Cell Distribution Width 17.1 % (11.6-17.2); White Blood Count 1.3 th/mm3 (4.0-11.0)
[2018-07-12 07:51] LABS: Albumin 2.9 g/dL (3.4-5.0); Anion Gap 7 meq/L (5-15); Aspartate Aminotransferase 11 U/L (15-37); Blood Urea Nitrogen 10 mg/dL (7-18); Calcium 8.6 mg/dL (8.5-10.1); Carbon Dioxide 24.8 meq/L (21.0-32.0); Chloride 109 meq/L (98-107); Glomerular Filtration Rate Greater Than 89 mL/min (>89); Glucose,Random 82 mg/dL (74-106); Potassium 3.7 meq/L (3.5-5.1); Sodium 141 meq/L (136-145)
[2018-07-12 07:52] LABS: Alanine Aminotransferase 11 U/L (12-78)
[2018-07-12 07:55] LABS: Alkaline Phosphatase 73 U/L (45-117)
[2018-07-12 09:15] LABS: Eosinophils 37 % (0-4); Lymphocytes 21 % (9-44); Monocytes 31 % (0-8)
[2018-07-12 09:17] LABS: Ovalocytes 1+; Platelet Estimate Normal (Normal)
--- NOTE | 2018-07-12 11:11 | P.PN ---
Subjective Interval history: Patient doing well overnight, no concerns per RN. Patient is n.p.o. since midnight for needle biopsy today. Patient has no current concerns. Physical Exam Vital signs: Vital Signs 07/11/18 15:52 07/11/18 16:41 07/11/18 20:00 Temperature 99.8 F H 98.9 F Pulse Rate 78 82 Respiratory Rate 18 20 Blood Pressure 118/56 L 116/64 Pulse Oximetry 98 98 98 07/12/18 00:00 07/12/18 04:00 Temperature 98.5 F 97.6 F Pulse Rate 85 70 Respiratory Rate 20 20 Blood Pressure 118/66 115/57 L Pulse Oximetry 98 100 Intake & Output 07/11/18 07/12/18 07/12/18 18:59 06:59 18:59 Intake Total 100 / 100 650 / 650 Output Total 400 / 400 650 / 650 Balance -300 / -300 0 / 0 Weight 88.8 kg Intake: IV 100 / 100 650 / 650 Azithromycin Inj 500 MG In NS 250 / 250 Inj 250 ML @ 250 mls/hr IV.SIG Q24H [facility]ENDO[facility] Rx#:[id number] Doxy 100 Inj 100 MG In NS Inj 100 / 100 100 / 100 100 ML @ 100 mls/hr IV.SIG Q12H [facility]END[facility] Rx#:[id number] Diflucan 400 mg Premix Bag 200 200 / 200 ML @ 100 mls/hr IV.SIG Q24H [facility]ENDOZA Rx#:[id number] Rocephin Inj 2,000 MG In NS Inj 100 / 100 100 ML @ 200 mls/hr IV.SIG Q24H [facility]ENDOZA Rx#:[id number] Output: Urine 400 / 400 650 / 650 Other: Date of Last Bowel Movement 07/10/18 07/10/18 Narrative: GENERAL: Well-nourished -[place] male, in no acute distress, lying comfortably in bed SKIN: Warm and dry. Dryness of BL lower extremities. HEENT: Normocephalic. No scleral icterus. No injection or drainage. PERRLA. MOM. NECK: Supple, trachea midline. No JVD or lymphadenopathy. CARDIOVASCULAR: Regular rate and rhythm without murmurs, gallops, or rubs. RESPIRATORY: Breath sounds equal bilaterally. No accessory muscle use. GASTROINTESTINAL: Abdomen soft, non-tender, nondistended. MUSCULOSKELETAL: No cyanosis, or edema. BACK: Nontender without obvious deformity. No CVA tenderness. NEURO: AAO x3, no focal deficits Results - Labs CBC & Chem 7: 07/12/18 05:57 07/12/18 05:57 Laboratory Results - last 24 hr 07/11/18 07/11/18 07/12/18 09:00 09:00 05:57 WBC 1.5 L 1.3 L RBC 2.74 L 2.64 L Hgb 8.5 L 8.2 L Hct 26.0 L 25.0 L MCV 95.0 94.8 MCH 30.8 31.0 MCHC 32.5 32.7 RDW 16.7 17.1 Plt Count 168 162 MPV 9.3 9.1 Prelim Diff (Auto) Slide review pending Manual diff required Neut % (Auto) 21.6 Lymph % (Auto) 25.5 [place] % (Auto) 25.5 H Eos % (Auto) 26.8 H Baso % (Auto) 0.6 Neut # (Auto) 0.3 L* Lymph # (Auto) 0.4 L [place] # (Auto) 0.4 Eos # (Auto) 0.4 Baso # (Auto) 0.0 WBC Differential Manual diff final Manual diff final Seg Neuts % (Manual) 24 10 L Band Neuts % (Manual) 5 Lymphocytes % (Manual) 25 21 Monocytes % (Manual) 23 H 31 H Eosinophils % (Manual) 23 H 37 H Basophils % (Manual) 1 Abs Neuts (Manual) 0.4 L* 0.1 L* Differential Comment . . Platelet Estimate Normal Normal Platelet Morphology Enlarged H Enlarged H Tear Drop Cells 1+ H Ovalocytes 2+ H 1+ H Keratocytes Occ H Sodium 139 Potassium 3.9 Chloride 107 Carbon Dioxide 24.4 Anion Gap 8 BUN 9 Creatinine 0.75 Estimated GFR Greater than 89 Random Glucose 72 L Calcium 8.6 Iron 23 L TIBC 183 L % Saturation 12.5 L Total Bilirubin 0.3 AST 12 L ALT 11 L Alkaline Phosphatase 72 Total Protein 7.0 Albumin 2.9 L 07/12/18 05:57 WBC RBC Hgb Hct MCV MCH MCHC RDW Plt Count MPV Prelim Diff (Auto) Neut % (Auto) Lymph % (Auto) [place] % (Auto) Eos % (Auto) Baso % (Auto) Neut # (Auto) Lymph # (Auto) [place] # (Auto) Eos # (Auto) Baso # (Auto) WBC Differential Seg Neuts % (Manual) Band Neuts % (Manual) Lymphocytes % (Manual) Monocytes % (Manual) Eosinophils % (Manual) Basophils % (Manual) Abs Neuts (Manual) Differential Comment Platelet Estimate Platelet Morphology Tear Drop Cells Ovalocytes Keratocytes Sodium 141 Potassium 3.7 Chloride 109 H Carbon Dioxide 24.8 Anion Gap 7 BUN 10 Creatinine 0.75 Estimated GFR Greater than 89 Random Glucose 82 Calcium 8.6 Iron TIBC % Saturation Total Bilirubin 0.2 AST 11 L ALT 11 L Alkaline Phosphatase 73 Total Protein 7.0 Albumin 2.9 L Microbiology 07/10/18 11:35 Blood - Peripheral Aerobic Blood Culture - Preliminary No growth in 2 days 07/10/18 11:35 Blood - Peripheral Anaerobic Blood Culture - Preliminary No growth in 2 days 07/10/18 11:20 Blood - Peripheral Aerobic Blood Culture - Preliminary No growth in 2 days 07/10/18 11:20 Blood - Peripheral Anaerobic Blood Culture - Preliminary No growth in 2 days 07/09/18 19:44 Sputum - Expectorated Sputum Gram Stain - Final 07/09/18 19:44 Sputum - Expectorated Sputum Sputum Culture - Preliminary Heavy growth normal respiratory rosita at 24 hours Assessment and Plan - Assessment (1) HIV (human immunodeficiency virus infection) Code(s): B20 - Human immunodeficiency virus [HIV] disease Status: Chronic (2) Dara esophagitis Code(s): B37.81 - Candidal esophagitis Status: Acute (3) PNA (pneumonia) Code(s): J18.9 - Pneumonia, unspecified organism Status: Acute (4) HTN (hypertension) Code(s): I10 - Essential (primary) hypertension Status: Chronic - Plan This is a 43-year-old CM with a PMHx of HTN, HIV/AIDS (last CD4 count 31), and Hx of Burkitt's Lymphoma admitted for inpatient management of pneumonia versus pulmonary mass, on antibiotics and managed by DONNIE MONTANEZ #4 1. Left Upper Lobe Pneumonia versus Mass Chest CT significant for 2.8 cm focal consolidation versus mass in the left upper lobe Cont. Azithromycin, Ceftriaxone, and Doxycycline started on 07/09 Sputum Cx from 07/09- Gram stain heavy rosita, AFB pending, Fungal Cx pending Neg Strep, Neg Legionella, Neg Flu Infectious disease consulted, appreciate assistance with mgmt Pulmonary consulted, appreciate assistance with mgmt Scheduled for needle biopsy today to assess possible mass Bld Cx from 07/10 NG at 2 days x4 Reccs Per ID 07/09: sputum culture: bacterial, AFB, fungal TB isolation consult pulmonary: ? BAL vs bx CD4 count Reccs Per Pulm 07/11: MARY ELLEN MASS/INFILTRATE PLAN NEEDLE BX ANTIBX PER ID 2. HIV/AIDS Pending CD4 count Resumed home antiretrovirals at this time, Atoraquone, Darunavir, Tivicay, Norvir, and Tenofovir, adjust per ID reccs Patient has not been compliant with his MAC/PCP prophylaxis 3. Oropharyngeal candidiasis/Esophageal Candidiasis, improving Cont. Fluconazole started on 07/09 4. Neutropenia Cont. Neutropenic precautions WBC 1.3 today, Ab Neut 01 Cont. to monitor 5. Anemia Secondary to chronic disease/DILSHAD Hgb 8.2 from 8.5 Cont. to monitor DILSHAD per studies, Rx FeSulfate 6. Hx of HTN BP stable Continue home Lisinopril Continue to monitor 7. Hx of Burkitt's Lymphoma Noted. 8. Anorexia, improving Likely due to advanced disease Patient tolerating PO but with decreased appetite Cont. Megace daily to see if it assists with sx 9. DVT PPX: SCD's 10. Dispo: Pending CD4 count and ID recommendations, follow-up pulmonary recommendations, plan for needle bx today. Code Status: full Discussed Condition With: patient, RN
[2018-07-12 11:13] LABS: Prothrombin Time 10.4 sec (9.8-11.6)
[2018-07-12] MEDS: Nystatin/Diphenhydramine/Lidocaine Mouthwash (Adult) 120 ML Botttle SWISH-SWAL SCH ×4 (11:26→20:28)
[2018-07-12] MEDS: Ferrous Sulfate 325 MG Tablet PO SCH (11:26)
[2018-07-12] MEDS: ATOVAQUONE 750 MG/5 ML PO SCH ×3 (11:27→18:15)
[2018-07-12] MEDS: DARUNAVIR 600 MG PO SCH ×2 (11:30→20:28)
[2018-07-12] MEDS: Tenofovir 300 MG Tablet PO SCH (11:31)
[2018-07-12] MEDS: Lisinopril 5 MG Tablet PO SCH (11:31)
[2018-07-12] MEDS ORDERED: fentaNYL Citrate Inj 250 MCG/5 ML Ampul ONE (12:08)
--- NOTE | 2018-07-12 13:32 | XR ---
EXAM DATE: 07/12/2018 12:56 PM EDT AGE/SEX: 43 years / Male INDICATIONS: Status post left lung biopsy. CLINICAL DATA: This is the patient's initial encounter. Patient reports that signs and symptoms have been present for 1 day and indicates a pain score of 0/10. MEDICAL/SURGICAL HISTORY: None. None. COMPARISON: [facility] – [place], CHEST 2V PA&LAT, 07/08/2018. . FINDINGS: No significant pneumothorax following biopsy of mass in the left upper lobe. Biopsied mass is not wel l demonstrated cardiomediastinal contours are within normal limits. Remainder of the exam is unchange d. CONCLUSION: 1. No significant pneumothorax following left upper lobe lung mass biopsy. Electronically signed by: Jim Calixto MD 07/12/2018 1:31 PM EDT
--- NOTE | 2018-07-12 13:43 | CT ---
EXAM DATE: 07/12/2018 10:47 AM EDT AGE/SEX: 43 years / Male INDICATIONS: Left lung mass. CLINICAL DATA: This is the patient's initial encounter. Patient reports that signs and symptoms have been present for 1 day and indicates a pain score of 0/10. MEDICAL/SURGICAL HISTORY: Lymphoma. left lung mass, HIV None. [place] [facility] [place] PUL[place] W CONTRAST W 3D, 07/08/2018. . BIOPSY SITE: Left lung MEDICATION(S): 2MG midazolam (Versed) IV 100MCG fentanyl (Sublimaze) IV DEVICE(S): 18 gauge Core biopsy needle Four core specimen(s) sent to the laboratory for pathologic evaluation. . . PROCEDURE: CT guided Left lung biopsy Conscious sedation with continuous EKG and oximetry monitoring. Prior to the procedure informed consent was obtained. Any appropriate prior imaging studies were rev iewed. Using automated exposure control and adjustment of the mA and/or kV according to patient size , radiation dose was kept as low as reasonably achievable to obtain optimal diagnostic quality images . DICOM format image data is available electronically for review and comparison. The site was prepped in a sterile fashion. Full sterile technique was used, including cap, mask, avni rile gloves and gown and a large sterile sheet. Hand hygiene and 2% chlorhexidine and/or betadine/al cohol prep was utilized per protocol for cutaneous antisepsis. The skin and subcutaneous tissues wer e infiltrated with local anesthetic solution. With CT guidance the previously identified target was localized. Biopsy was performed using the presc ribed needle as above. Adequate hemostasis was obtained with compression at the puncture site. Follow-up CT scan reveals no pneumothorax. Conscious sedation was performed with the prescribed dosages and duration as above in the presence of an independent trained radiology nurse to assist in the monitoring of the patient. EKG and oximetry remained stable throughout the procedure. The patient tolerated the procedure well and there were no complications. The patient was sent to Radiology Outpatient Unit in stable condition. CONCLUSION: Uncomplicated CT guided biopsy. Electronically signed by: Jose Ortez MD 07/12/2018 1:41 PM EDT
--- NOTE | 2018-07-12 16:24 | P.PNID ---
Subjective Remarks: c/o penile non painful lesion x [address] guided lung bx feels better afebrile sputum clx with resp rosita and beta strep Antibiotics: fluconazol tivicay prezista tenofovir Allergies/Adverse Reactions: Allergies albuterol Allergy (Intermediate, Verified 03/15/18 16:58) Hives shortness of breath azithromycin Allergy (Verified 07/08/18 19:59) Hives Objective Vital Signs 07/11/18 16:41 07/11/18 20:00 07/12/18 00:00 Temperature 98.9 F 98.5 F Pulse Rate 82 85 Respiratory Rate 20 20 Blood Pressure 116/64 118/66 Pulse Oximetry 98 98 98 07/12/18 04:00 07/12/18 08:00 07/12/18 12:56 Temperature 97.6 F 97.8 F 98.4 F Pulse Rate 70 62 70 Respiratory Rate 20 15 17 Blood Pressure 115/57 L 118/73 130/64 Pulse Oximetry 100 97 93 L 07/12/18 13:11 07/12/18 13:41 Temperature Pulse Rate 78 82 Respiratory Rate 17 19 Blood Pressure 120/68 126/81 Pulse Oximetry 94 L 100 Intake & Output 07/11/18 07/12/18 07/12/18 18:59 06:59 18:59 Intake Total 100 / 100 650 / 650 Output Total 400 / 400 650 / 650 Balance -300 / -300 0 / 0 Weight 88.8 kg Intake: IV 100 / 100 650 / 650 Azithromycin Inj 500 MG In NS 250 / 250 Inj 250 ML @ 250 mls/hr IV.SIG Q24H [facility] Rx#:[id number] Doxy 100 Inj 100 MG In NS Inj 100 / 100 100 / 100 100 ML @ 100 mls/hr IV.SIG Q12H [facility] Rx#:[id number] Diflucan 400 mg Premix Bag 200 200 / 200 ML @ 100 mls/hr IV.SIG Q24H [facility] Rx#:[id number] Rocephin Inj 2,000 MG In NS Inj 100 / 100 100 ML @ 200 mls/hr IV.SIG Q24H [facility] Rx#:[id number] Output: Urine 400 / 400 650 / 650 Other: Date of Last Bowel Movement 07/10/18 07/10/18 07/12/18 12:40 Tissue - Lung Gram Stain - Final 07/12/18 12:40 Tissue - Lung Wound Culture - Pending 07/09/18 19:44 Sputum - Expectorated Sputum Acid Fast Bacilli Smear - Final No acid fast bacilli seen 07/09/18 19:44 Sputum - Expectorated Sputum Mycobacterial Culture - Pending 07/09/18 19:44 Sputum - Expectorated Sputum Fungal Smear - Final No fungal elements seen 07/09/18 19:44 Sputum - Expectorated Sputum Fungal Culture - Pending 07/12/18 12:40 Tissue - Lung Fungal Smear - Pending 07/12/18 12:40 Tissue - Lung Fungal Culture - Pending 07/12/18 12:40 Tissue - Lung Acid Fast Bacilli Smear - Pending 07/12/18 12:40 Tissue - Lung Mycobacterial Culture - Pending 07/09/18 19:44 Sputum - Expectorated Sputum Gram Stain - Final 07/09/18 19:44 Sputum - Expectorated Sputum Sputum Culture - Final Beta Strep not group A 07/10/18 11:35 Blood - Peripheral Aerobic Blood Culture - Preliminary No growth in 2 days 07/10/18 11:35 Blood - Peripheral Anaerobic Blood Culture - Preliminary No growth in 2 days 07/10/18 11:20 Blood - Peripheral Aerobic Blood Culture - Preliminary No growth in 2 days 07/10/18 11:20 Blood - Peripheral Anaerobic Blood Culture - Preliminary No growth in 2 days Lab - Hematology Results 07/11/18 07/12/18 09:00 05:57 WBC 1.5 L 1.3 L RBC 2.74 L 2.64 L Hgb 8.5 L 8.2 L Hct 26.0 L 25.0 L MCV 95.0 94.8 MCH 30.8 31.0 MCHC 32.5 32.7 RDW 16.7 17.1 Plt Count 168 162 MPV 9.3 9.1 Prelim Diff (Auto) Slide review pending Manual diff required Neut % (Auto) 21.6 Lymph % (Auto) 25.5 [place] % (Auto) 25.5 H Eos % (Auto) 26.8 H Baso % (Auto) 0.6 Neut # (Auto) 0.3 L* Lymph # (Auto) 0.4 L [place] # (Auto) 0.4 Eos # (Auto) 0.4 Baso # (Auto) 0.0 WBC Differential Manual diff final Manual diff final Seg Neuts % (Manual) 24 10 L Band Neuts % (Manual) 5 Lymphocytes % (Manual) 25 21 Monocytes % (Manual) 23 H 31 H Eosinophils % (Manual) 23 H 37 H Basophils % (Manual) 1 Abs Neuts (Manual) 0.4 L* 0.1 L* Differential Comment . . Platelet Estimate Normal Normal Platelet Morphology Enlarged H Enlarged H Tear Drop Cells 1+ H Ovalocytes 2+ H 1+ H Keratocytes Occ H Lab - Chemistry Results 07/11/18 07/12/18 09:00 05:57 Sodium 139 141 Potassium 3.9 3.7 Chloride 107 109 H Carbon Dioxide 24.4 24.8 Anion Gap 8 7 BUN 9 10 Creatinine 0.75 0.75 Estimated GFR Greater than 89 Greater than 89 Random Glucose 72 L 82 Calcium 8.6 8.6 Iron 23 L TIBC 183 L % Saturation 12.5 L Total Bilirubin 0.3 0.2 AST 12 L 11 L ALT 11 L 11 L Alkaline Phosphatase 72 73 Total Protein 7.0 7.0 Albumin 2.9 L 2.9 L Imaging: ITS Impressions Chest CTA 07/08/18 21:44 CONCLUSION: 1. No pulmonary embolus. 2. 2.8 cm focal consolidation or mass in the left upper lobe. This could represent a focal area of pneumonia. Underlying neoplasm cannot be excluded. At the very least that should be followed. This could be further evaluated with a PET FDG study as an outpatient. Lung Biopsy CT 07/12/18 00:00 CONCLUSION: Uncomplicated CT guided biopsy. Chest X-Ray 07/12/18 12:56 CONCLUSION: 1. No significant pneumothorax following left upper lobe lung mass biopsy. Physical Exam: GENERAL: AND SKIN: Warm and dry. No rash HEAD: Atraumatic. Normocephalic. EYES: Pupils equal and round. No scleral icterus. No injection or drainage. ENT: No nasal bleeding or discharge. Mucous membranes pink and moist. CARDIOVASCULAR: Regular rate and rhythm. RESPIRATORY: No accessory muscle use. Clear to auscultation. Breath sounds equal bilaterally. GASTROINTESTINAL: Abdomen soft, non-tender, nondistended. Hepatic and splenic margins not palpable. MUSCULOSKELETAL: Extremities without clubbing, cyanosis, or edema. No obvious deformities. : clean based ulceration on penis in sulcus NEUROLOGICAL: Awake and alert. Non focal. Motor grossly within normal limits. Five out of 5 muscle strength in the arms and legs. Normal speech. PSYCHIATRIC: Appropriate mood and affect; insight and judgment normal. Assessment and Plan - Plan HIV/AIDS Pulmonary mass vs dense infiltrate - bacterial ? mycobacterial? sp IR bx of lung lesion H/ o Burkitt lymphoma Penile lesion fu tissue clx: bacterial, AFB, fungal TB isolation consult pulmonary: ? BAL vs bx CD4 count chk RPR
--- NOTE | 2018-07-12 17:11 | P.PN ---
Subjective Interval history: ALERT NO SOB AT REST DOPING WELL POST NEEDLE BX Physical Exam Vital signs: Vital Signs 07/11/18 20:00 07/12/18 00:00 07/12/18 04:00 Temperature 98.9 F 98.5 F 97.6 F Pulse Rate 82 85 70 Respiratory Rate 20 20 20 Blood Pressure 116/64 118/66 115/57 L Pulse Oximetry 98 98 100 07/12/18 08:00 07/12/18 12:56 07/12/18 13:11 Temperature 97.8 F 98.4 F Pulse Rate 62 70 78 Respiratory Rate 15 17 17 Blood Pressure 118/73 130/64 120/68 Pulse Oximetry 97 93 L 94 L 07/12/18 13:41 Temperature Pulse Rate 82 Respiratory Rate 19 Blood Pressure 126/81 Pulse Oximetry 100 Intake & Output 07/11/18 07/12/18 07/12/18 18:59 06:59 18:59 Intake Total 100 / 100 650 / 650 Output Total 400 / 400 650 / 650 Balance -300 / -300 0 / 0 Weight 88.8 kg Intake: IV 100 / 100 650 / 650 Azithromycin Inj 500 MG In NS 250 / 250 Inj 250 ML @ 250 mls/hr IV.SIG Q24H [facility] Rx#:[id number] Doxy 100 Inj 100 MG In NS Inj 100 / 100 100 / 100 100 ML @ 100 mls/hr IV.SIG Q12H [facility] Rx#:[id number] Diflucan 400 mg Premix Bag 200 200 / 200 ML @ 100 mls/hr IV.SIG Q24H [facility] Rx#:[id number] Rocephin Inj 2,000 MG In NS Inj 100 / 100 100 ML @ 200 mls/hr IV.SIG Q24H [facility] Rx#:[id number] Output: Urine 400 / 400 650 / 650 Other: Date of Last Bowel Movement 07/10/18 07/10/18 Narrative: GENERAL: Well-nourished -[place] male, in no acute distress, lying comfortably in bed SKIN: Warm and dry. Dryness of BL lower extremities. HEENT: Normocephalic. No scleral icterus. No injection or drainage. PERRLA. MOM. NECK: Supple, trachea midline. No JVD or lymphadenopathy. CARDIOVASCULAR: Regular rate and rhythm without murmurs, gallops, or rubs. RESPIRATORY: Breath sounds equal bilaterally. No accessory muscle use. GASTROINTESTINAL: Abdomen soft, non-tender, nondistended. MUSCULOSKELETAL: No cyanosis, or edema. BACK: Nontender without obvious deformity. No CVA tenderness. NEURO: AAO x3, no focal deficits Results - Labs CBC & Chem 7: 07/12/18 05:57 07/12/18 05:57 Laboratory Results - last 24 hr 07/12/18 07/12/18 07/12/18 05:57 05:57 10:32 WBC 1.3 L RBC 2.64 L Hgb 8.2 L Hct 25.0 L MCV 94.8 MCH 31.0 MCHC 32.7 RDW 17.1 Plt Count 162 MPV 9.1 Prelim Diff (Auto) Manual diff required WBC Differential Manual diff final Seg Neuts % (Manual) 10 L Lymphocytes % (Manual) 21 Monocytes % (Manual) 31 H Eosinophils % (Manual) 37 H Basophils % (Manual) 1 Abs Neuts (Manual) 0.1 L* Differential Comment . Platelet Estimate Normal Platelet Morphology Enlarged H Ovalocytes 1+ H PT 10.4 INR 1.0 Sodium 141 Potassium 3.7 Chloride 109 H Carbon Dioxide 24.8 Anion Gap 7 BUN 10 Creatinine 0.75 Estimated GFR Greater than 89 Random Glucose 82 Calcium 8.6 Total Bilirubin 0.2 AST 11 L ALT 11 L Alkaline Phosphatase 73 Total Protein 7.0 Albumin 2.9 L Microbiology 07/12/18 12:40 Tissue - Lung Fungal Smear - Final No fungal elements seen 07/12/18 12:40 Tissue - Lung Gram Stain - Final 07/09/18 19:44 Sputum - Expectorated Sputum Acid Fast Bacilli Smear - Final No acid fast bacilli seen 07/09/18 19:44 Sputum - Expectorated Sputum Fungal Smear - Final No fungal elements seen 07/09/18 19:44 Sputum - Expectorated Sputum Gram Stain - Final 07/09/18 19:44 Sputum - Expectorated Sputum Sputum Culture - Final Beta Strep not group A 07/10/18 11:35 Blood - Peripheral Aerobic Blood Culture - Preliminary No growth in 2 days 07/10/18 11:35 Blood - Peripheral Anaerobic Blood Culture - Preliminary No growth in 2 days 07/10/18 11:20 Blood - Peripheral Aerobic Blood Culture - Preliminary No growth in 2 days 07/10/18 11:20 Blood - Peripheral Anaerobic Blood Culture - Preliminary No growth in 2 days - Imaging Impressions Lung Biopsy CT 07/12/18 00:00 CONCLUSION: Uncomplicated CT guided biopsy. Chest X-Ray 07/12/18 12:56 CONCLUSION: 1. No significant pneumothorax following left upper lobe lung mass biopsy. Assessment and Plan - Plan MARY ELLEN MASS/INFILTRATE PLAN NEEDLE BX DONE ANTIBX PER ID CHECK PATH
[2018-07-13] MEDS: Azithromycin Inj 500 MG in Sodium Chlor 0.9% Inj 250 ML IV.SIG SCH (03:23)
[2018-07-13 07:10] LABS: Hematocrit 24.1 % (39.0-51.0); Hemoglobin 7.9 gm/dL (13.0-17.0); Mean Corpuscular HGB Conc 32.7 % (32.0-36.0); Mean Corpuscular Hemoglobin 30.9 pg (27.0-34.0); Mean Corpuscular Volume 94.4 fL (80.0-100.0); Mean Platelet Volume 8.8 fL (7.0-11.0); Platelet Count 159 th/mm3 (150-450); Red Blood Count 2.55 mil/mm3 (4.50-5.90); Red Cell Distribution Width 16.7 % (11.6-17.2); White Blood Count 1.4 th/mm3 (4.0-11.0)
[2018-07-13 07:33] LABS: Albumin 2.9 g/dL (3.4-5.0); Anion Gap 10 meq/L (5-15); Aspartate Aminotransferase 12 U/L (15-37); Blood Urea Nitrogen 12 mg/dL (7-18); Calcium 8.5 mg/dL (8.5-10.1); Carbon Dioxide 24.3 meq/L (21.0-32.0); Chloride 108 meq/L (98-107); Glomerular Filtration Rate Greater Than 89 mL/min (>89); Glucose,Random 88 mg/dL (74-106); Potassium 3.8 meq/L (3.5-5.1); Sodium 142 meq/L (136-145)
[2018-07-13 07:34] LABS: Alanine Aminotransferase 12 U/L (12-78)
[2018-07-13 07:37] LABS: Alkaline Phosphatase 74 U/L (45-117); Total Protein 6.8 g/dL (6.4-8.2)
[2018-07-13] MEDS: DARUNAVIR 600 MG PO SCH ×2 (08:08→20:47)
[2018-07-13] MEDS: Ferrous Sulfate 325 MG Tablet PO SCH (08:09)
[2018-07-13] MEDS: ATOVAQUONE 750 MG/5 ML PO SCH ×3 (08:09→18:21)
[2018-07-13] MEDS: Lisinopril 5 MG Tablet PO SCH (08:09)
[2018-07-13] MEDS: Nystatin/Diphenhydramine/Lidocaine Mouthwash (Adult) 120 ML Botttle SWISH-SWAL SCH ×4 (08:10→20:48)
[2018-07-13] MEDS: Tenofovir 300 MG Tablet PO SCH (08:11)
[2018-07-13 08:22] LABS: Eosinophils 35 % (0-4); Lymphocytes 29 % (9-44); Monocytes 20 % (0-8); Platelet Estimate Normal (Normal); Tallied Nucleated RBC 1 (0-0)
[2018-07-13 08:24] LABS: Ovalocytes 2+; Tear Drop Cells 1+
--- NOTE | 2018-07-13 11:15 | P.PN ---
Subjective Interval history: ALERT NAD Physical Exam Vital signs: Vital Signs 07/12/18 12:56 07/12/18 13:11 07/12/18 13:41 Temperature 98.4 F Pulse Rate 70 78 82 Respiratory Rate 17 17 19 Blood Pressure 130/64 120/68 126/81 Pulse Oximetry 93 L 94 L 100 07/12/18 16:00 07/12/18 20:00 07/12/18 23:37 Temperature 97.9 F 97.5 F L 97.9 F Pulse Rate 83 82 80 Respiratory Rate 16 20 20 Blood Pressure 117/69 132/77 130/80 Pulse Oximetry 98 98 97 07/13/18 04:00 07/13/18 08:00 Temperature 98.1 F 98.0 F Pulse Rate 72 62 Respiratory Rate 20 18 Blood Pressure 109/64 112/63 Pulse Oximetry 99 98 Intake & Output 07/12/18 07/13/18 07/13/18 18:59 06:59 18:59 Intake Total 480 / 480 892 / 892 Output Total 1400 / 1400 575 / 575 Balance -920 / -920 317 / 317 Weight 91 kg Intake: IV 450 / 450 Azithromycin Inj 500 MG In NS 250 / 250 Inj 250 ML @ 250 mls/hr IV.SIG Q24H [facility] Rx#:[id number] Doxy 100 Inj 100 MG In NS Inj 100 / 100 100 ML @ 100 mls/hr IV.SIG Q12H [facility] Rx#:[id number] Rocephin Inj 2,000 MG In NS Inj 100 / 100 100 ML @ 200 mls/hr IV.SIG Q24H [facility] Rx#:[id number] Oral 480 / 480 442 / 442 Output: Urine 1400 / 1400 575 / 575 Other: # Voids 2 Date of Last Bowel Movement 07/12/18 07/10/18 Narrative: GENERAL: Well-nourished -[place] male, in no acute distress, lying comfortably in bed SKIN: Warm and dry. Dryness of BL lower extremities. HEENT: Normocephalic. No scleral icterus. No injection or drainage. PERRLA. MOM. NECK: Supple, trachea midline. No JVD or lymphadenopathy. CARDIOVASCULAR: Regular rate and rhythm without murmurs, gallops, or rubs. RESPIRATORY: Breath sounds equal bilaterally. No accessory muscle use. GASTROINTESTINAL: Abdomen soft, non-tender, nondistended. MUSCULOSKELETAL: No cyanosis, or edema. BACK: Nontender without obvious deformity. No CVA tenderness. NEURO: AAO x3, no focal deficits Results - Labs CBC & Chem 7: 07/13/18 05:58 07/13/18 05:58 Laboratory Results - last 24 hr 07/12/18 07/13/18 07/13/18 10:32 05:58 05:58 WBC 1.4 L RBC 2.55 L Hgb 7.9 L Hct 24.1 L MCV 94.4 MCH 30.9 MCHC 32.7 RDW 16.7 Plt Count 159 MPV 8.8 Prelim Diff (Auto) Manual diff required WBC Differential Manual diff final Seg Neuts % (Manual) 15 L Band Neuts % (Manual) 1 Lymphocytes % (Manual) 29 Monocytes % (Manual) 20 H Eosinophils % (Manual) 35 H Abs Neuts (Manual) 0.2 L* Nucleated RBCs/100 WBC 1 H Differential Comment . Platelet Estimate Normal Platelet Morphology Enlarged H Basophilic Stippling Faint H Tear Drop Cells 1+ H Ovalocytes 2+ H PT 10.4 INR 1.0 Sodium Potassium Chloride Carbon Dioxide Anion Gap BUN Creatinine Estimated GFR Random Glucose Calcium Total Bilirubin AST ALT Alkaline Phosphatase Total Protein Albumin RPR Nonreactive 07/13/18 05:58 WBC RBC Hgb Hct MCV MCH MCHC RDW Plt Count MPV Prelim Diff (Auto) WBC Differential Seg Neuts % (Manual) Band Neuts % (Manual) Lymphocytes % (Manual) Monocytes % (Manual) Eosinophils % (Manual) Abs Neuts (Manual) Nucleated RBCs/100 WBC Differential Comment Platelet Estimate Platelet Morphology Basophilic Stippling Tear Drop Cells Ovalocytes PT INR Sodium 142 Potassium 3.8 Chloride 108 H Carbon Dioxide 24.3 Anion Gap 10 BUN 12 Creatinine 0.83 Estimated GFR Greater than 89 Random Glucose 88 Calcium 8.5 Total Bilirubin 0.2 AST 12 L ALT 12 Alkaline Phosphatase 74 Total Protein 6.8 Albumin 2.9 L RPR Microbiology 07/10/18 11:35 Blood - Peripheral Aerobic Blood Culture - Preliminary No growth in 3 days 07/10/18 11:35 Blood - Peripheral Anaerobic Blood Culture - Preliminary No growth in 3 days 07/10/18 11:20 Blood - Peripheral Aerobic Blood Culture - Preliminary No growth in 3 days 07/10/18 11:20 Blood - Peripheral Anaerobic Blood Culture - Preliminary No growth in 3 days 07/12/18 12:40 Tissue - Lung Fungal Smear - Final No fungal elements seen 07/12/18 12:40 Tissue - Lung Gram Stain - Final 07/09/18 19:44 Sputum - Expectorated Sputum Acid Fast Bacilli Smear - Final No acid fast bacilli seen 07/09/18 19:44 Sputum - Expectorated Sputum Fungal Smear - Final No fungal elements seen 07/09/18 19:44 Sputum - Expectorated Sputum Gram Stain - Final 07/09/18 19:44 Sputum - Expectorated Sputum Sputum Culture - Final Beta Strep not group A - Imaging Impressions Lung Biopsy CT 07/12/18 00:00 CONCLUSION: Uncomplicated CT guided biopsy. Chest X-Ray 07/12/18 12:56 CONCLUSION: 1. No significant pneumothorax following left upper lobe lung mass biopsy. Assessment and Plan - Plan MARY ELLEN MASS/INFILTRATE PLAN NEEDLE BX DONE ANTIBX PER ID CHECK PATH
[2018-07-13 11:20] LABS: Cryptococcus Ag Screen Negative (Negative)
[2018-07-13 12:59] VITALS: O2SAT 100
--- NOTE | 2018-07-13 14:26 | P.PN ---
Subjective Interval history: Patient doing well. Patient is tolerant p.o., voiding/stooling well. Patient did want to leave AMA this morning but the nurse convinced him to stay. No other concerns. Physical Exam Vital signs: Vital Signs 07/12/18 16:00 07/12/18 20:00 07/12/18 23:37 Temperature 97.9 F 97.5 F L 97.9 F Pulse Rate 83 82 80 Respiratory Rate 16 20 20 Blood Pressure 117/69 132/77 130/80 Pulse Oximetry 98 98 97 07/13/18 04:00 07/13/18 08:00 07/13/18 12:00 Temperature 98.1 F 98.0 F 98.0 F Pulse Rate 72 62 69 Respiratory Rate 20 18 18 Blood Pressure 109/64 112/63 119/66 Pulse Oximetry 99 98 100 Intake & Output 07/12/18 07/13/18 07/13/18 18:59 06:59 18:59 Intake Total 480 / 480 892 / 892 Output Total 1400 / 1400 575 / 575 Balance -920 / -920 317 / 317 Weight 91 kg Intake: IV 450 / 450 Azithromycin Inj 500 MG In NS 250 / 250 Inj 250 ML @ 250 mls/hr IV.SIG Q24H [facility] Rx#:[id number] Doxy 100 Inj 100 MG In NS Inj 100 / 100 100 ML @ 100 mls/hr IV.SIG Q12H [facility] Rx#:[id number] Rocephin Inj 2,000 MG In NS Inj 100 / 100 100 ML @ 200 mls/hr IV.SIG Q24H [facility] Rx#:[id number] Oral 480 / 480 442 / 442 Output: Urine 1400 / 1400 575 / 575 Other: # Voids 2 Date of Last Bowel Movement 07/12/18 07/10/18 Narrative: GENERAL: Well-nourished -[place] male, in no acute distress, lying comfortably in bed SKIN: Warm and dry. Dryness of BL lower extremities. HEENT: Normocephalic. No scleral icterus. No injection or drainage. PERRLA. MOM. NECK: Supple, trachea midline. No JVD or lymphadenopathy. CARDIOVASCULAR: Regular rate and rhythm without murmurs, gallops, or rubs. RESPIRATORY: Breath sounds equal bilaterally. No accessory muscle use. GASTROINTESTINAL: Abdomen soft, non-tender, nondistended. MUSCULOSKELETAL: No cyanosis, or edema. BACK: Nontender without obvious deformity. No CVA tenderness. NEURO: AAO x3, no focal deficits Results - Labs CBC & Chem 7: 07/13/18 05:58 07/13/18 05:58 Laboratory Results - last 24 hr 07/10/18 07/13/18 07/13/18 07:59 05:58 05:58 WBC 1.4 L RBC 2.55 L Hgb 7.9 L Hct 24.1 L MCV 94.4 MCH 30.9 MCHC 32.7 RDW 16.7 Plt Count 159 MPV 8.8 Prelim Diff (Auto) Manual diff required WBC Differential Manual diff final Seg Neuts % (Manual) 15 L Band Neuts % (Manual) 1 Lymphocytes % (Manual) 29 Monocytes % (Manual) 20 H Eosinophils % (Manual) 35 H Abs Neuts (Manual) 0.2 L* Nucleated RBCs/100 WBC 1 H Differential Comment . Platelet Estimate Normal Platelet Morphology Enlarged H Basophilic Stippling Faint H Tear Drop Cells 1+ H Ovalocytes 2+ H Sodium Potassium Chloride Carbon Dioxide Anion Gap BUN Creatinine Estimated GFR Random Glucose Calcium Total Bilirubin AST ALT Alkaline Phosphatase Total Protein Albumin RPR Nonreactive Cryptococcus Ag Screen Negative 07/13/18 05:58 WBC RBC Hgb Hct MCV MCH MCHC RDW Plt Count MPV Prelim Diff (Auto) WBC Differential Seg Neuts % (Manual) Band Neuts % (Manual) Lymphocytes % (Manual) Monocytes % (Manual) Eosinophils % (Manual) Abs Neuts (Manual) Nucleated RBCs/100 WBC Differential Comment Platelet Estimate Platelet Morphology Basophilic Stippling Tear Drop Cells Ovalocytes Sodium 142 Potassium 3.8 Chloride 108 H Carbon Dioxide 24.3 Anion Gap 10 BUN 12 Creatinine 0.83 Estimated GFR Greater than 89 Random Glucose 88 Calcium 8.5 Total Bilirubin 0.2 AST 12 L ALT 12 Alkaline Phosphatase 74 Total Protein 6.8 Albumin 2.9 L RPR Cryptococcus Ag Screen Microbiology 07/12/18 12:40 Tissue - Lung Gram Stain - Final 07/12/18 12:40 Tissue - Lung Wound Culture - Preliminary Staphylococcus aureus 07/10/18 11:35 Blood - Peripheral Aerobic Blood Culture - Preliminary No growth in 3 days 07/10/18 11:35 Blood - Peripheral Anaerobic Blood Culture - Preliminary No growth in 3 days 07/10/18 11:20 Blood - Peripheral Aerobic Blood Culture - Preliminary No growth in 3 days 07/10/18 11:20 Blood - Peripheral Anaerobic Blood Culture - Preliminary No growth in 3 days 07/12/18 12:40 Tissue - Lung Fungal Smear - Final No fungal elements seen 07/09/18 19:44 Sputum - Expectorated Sputum Acid Fast Bacilli Smear - Final No acid fast bacilli seen 07/09/18 19:44 Sputum - Expectorated Sputum Fungal Smear - Final No fungal elements seen 07/09/18 19:44 Sputum - Expectorated Sputum Gram Stain - Final 07/09/18 19:44 Sputum - Expectorated Sputum Sputum Culture - Final Beta Strep not group A Assessment and Plan - Assessment (1) HIV (human immunodeficiency virus infection) Code(s): B20 - Human immunodeficiency virus [HIV] disease Status: Chronic (2) Dara esophagitis Code(s): B37.81 - Candidal esophagitis Status: Acute (3) PNA (pneumonia) Code(s): J18.9 - Pneumonia, unspecified organism Status: Acute (4) HTN (hypertension) Code(s): I10 - Essential (primary) hypertension Status: Chronic - Plan This is a 43-year-old CM with a PMHx of HTN, HIV/AIDS (last CD4 count 31), and Hx of Burkitt's Lymphoma admitted for inpatient management of pneumonia versus pulmonary mass, on antibiotics and managed by LISSETH, DONNIE #5 1. Left Upper Lobe Pneumonia versus Mass Chest CT significant for 2.8 cm focal consolidation versus mass in the left upper lobe Cont. Azithromycin, Ceftriaxone, and Doxycycline started on 07/09 Sputum Cx from 07/09- heavy normal rosita, AFB pending, Fungal Cx pending Neg Strep, Neg Legionella, Neg Flu Infectious disease consulted, appreciate assistance with mgmt Pulmonary consulted, appreciate assistance with mgmt s/p needle biopsy of lung mass pending path Lung Tissue Cx from 07/12, S. Aureus pending sensitivities Bld Cx from 07/10 NG at 3 days x4 Myobacterium PCR ordered today Reccs Per ID 07/09: sputum culture: bacterial, AFB, fungal TB isolation consult pulmonary: ? BAL vs bx CD4 count Reccs Per Pulm 07/11: MARY ELLEN MASS/INFILTRATE PLAN NEEDLE BX ANTIBX PER ID 2. HIV/AIDS Pending CD4 count Resumed home antiretrovirals at this time, Atoraquone, Darunavir, Tivicay, Norvir, and Tenofovir, adjust per ID reccs Patient has not been compliant with his MAC/PCP prophylaxis Neg Cryptococcus, Neg RPR 3. Oropharyngeal candidiasis/Esophageal Candidiasis, improving Cont. Fluconazole started on 07/09 4. Neutropenia Cont. Neutropenic precautions WBC 1.4 today Cont. to monitor 5. Anemia Secondary to chronic disease/DILSHAD Hgb 7.9 from 8.2 Cont. to monitor DILSHAD per studies, Cont. FeSulfate 6. Hx of HTN BP stable Continue home Lisinopril Continue to monitor 7. Hx of Burkitt's Lymphoma Noted. 8. Anorexia, improving Likely due to advanced disease Patient tolerating PO but with decreased appetite Cont. Megace daily to see if it assists with sx 9. DVT PPX: SCD'splan for needle bx today. 10. Dispo: Pending CD4 count and lung Bx results, follow-up pulmonary recommendations. Code Status: full Discussed Condition With: patient, RN
[2018-07-14] MEDS: Azithromycin Inj 500 MG in Sodium Chlor 0.9% Inj 250 ML IV.SIG SCH (02:00)
--- NOTE | 2018-07-14 08:15 | P.PN ---
Subjective Interval history: Patient doing well. Patient tolerating p.o., voiding/stooling well. Patient reports that his cough has resolved. Patient states that he may leave AMA regardless of what we tell him. He reports that he has to go home and allow us to be hospitalized. Physical Exam Vital signs: Vital Signs 07/13/18 12:00 07/13/18 16:00 07/13/18 20:00 Temperature 98.0 F 97.9 F Pulse Rate 69 71 66 Respiratory Rate 18 16 18 Blood Pressure 119/66 130/72 121/64 Pulse Oximetry 100 100 100 07/14/18 00:00 07/14/18 02:32 07/14/18 04:00 Temperature 98.1 F 97.8 F Pulse Rate 83 62 Respiratory Rate 18 17 17 Blood Pressure 114/64 118/70 Pulse Oximetry 100 100 07/14/18 05:48 Temperature Pulse Rate Respiratory Rate 16 Blood Pressure Pulse Oximetry Intake & Output 07/13/18 07/14/18 07/14/18 18:59 06:59 18:59 Intake Total 542 / 542 650 / 650 Output Total 575 / 575 1600 / 1600 Balance -33 / -33 -950 / -950 Weight 89.9 kg Intake: IV 100 / 100 650 / 650 Azithromycin Inj 500 MG In NS 250 / 250 Inj 250 ML @ 250 mls/hr IV.SIG Q24H [facility] Rx#:[id number] Doxy 100 Inj 100 MG In NS Inj 100 / 100 100 / 100 100 ML @ 100 mls/hr IV.SIG Q12H [facility] Rx#:[id number] Diflucan 400 mg Premix Bag 200 200 / 200 ML @ 100 mls/hr IV.SIG Q24H [facility] Rx#:[id number] Rocephin Inj 2,000 MG In NS Inj 100 / 100 100 ML @ 200 mls/hr IV.SIG Q24H [facility] Rx#:[id number] Oral 442 / 442 Output: Urine 575 / 575 1600 / 1600 Other: # Voids 2 Date of Last Bowel Movement 07/10/18 07/13/18 Narrative: GENERAL: Well-nourished -Greek male, in no acute distress, lying comfortably in bed SKIN: Warm and dry. Dryness of BL lower extremities. HEENT: Normocephalic. No scleral icterus. No injection or drainage. PERRLA. MOM. NECK: Supple, trachea midline. No JVD or lymphadenopathy. CARDIOVASCULAR: Regular rate and rhythm without murmurs, gallops, or rubs. RESPIRATORY: Breath sounds equal bilaterally. No accessory muscle use. GASTROINTESTINAL: Abdomen soft, non-tender, nondistended. MUSCULOSKELETAL: No cyanosis, or edema. BACK: Nontender without obvious deformity. No CVA tenderness. NEURO: AAO x3, no focal deficits Results - Labs CBC & Chem 7: 07/13/18 05:58 07/13/18 05:58 Laboratory Results - last 24 hr 07/10/18 07/10/18 07/13/18 07:59 07:59 05:58 WBC Differential Seg Neuts % (Manual) Band Neuts % (Manual) Lymphocytes % (Manual) Monocytes % (Manual) Eosinophils % (Manual) Abs Neuts (Manual) Nucleated RBCs/100 WBC Platelet Estimate Platelet Morphology Basophilic Stippling Tear Drop Cells Ovalocytes Absolute Lymphocytes 224 L % CD3 Cells 82 Absolute CD3 Count 183 L % CD3-/CD16+/CD56+ 18 Abs CD3-/CD16+/CD56+ 38 L % CD4 Cells 3 L Absolute CD4 Count Less than 20 L T-Help/Suppress Ratio 0.10 L % CD8 Cells 78 H Absolute CD8 Count 183 % CD19 Cells 1 L Absolute CD19 Count Less than 20 L RPR Nonreactive Cryptococcus Ag Screen Negative M.tuberculosis DNA (PCR) 07/13/18 07/13/18 05:58 19:30 WBC Differential Manual diff final Seg Neuts % (Manual) 15 L Band Neuts % (Manual) 1 Lymphocytes % (Manual) 29 Monocytes % (Manual) 20 H Eosinophils % (Manual) 35 H Abs Neuts (Manual) 0.2 L* Nucleated RBCs/100 WBC 1 H Platelet Estimate Normal Platelet Morphology Enlarged H Basophilic Stippling Faint H Tear Drop Cells 1+ H Ovalocytes 2+ H Absolute Lymphocytes % CD3 Cells Absolute CD3 Count % CD3-/CD16+/CD56+ Abs CD3-/CD16+/CD56+ % CD4 Cells Absolute CD4 Count T-Help/Suppress Ratio % CD8 Cells Absolute CD8 Count % CD19 Cells Absolute CD19 Count RPR Cryptococcus Ag Screen M.tuberculosis DNA (PCR) Not detected Microbiology 07/12/18 12:40 Tissue - Lung Gram Stain - Final 07/12/18 12:40 Tissue - Lung Wound Culture - Preliminary Staphylococcus aureus 07/10/18 11:35 Blood - Peripheral Aerobic Blood Culture - Preliminary No growth in 3 days 07/10/18 11:35 Blood - Peripheral Anaerobic Blood Culture - Preliminary No growth in 3 days 07/10/18 11:20 Blood - Peripheral Aerobic Blood Culture - Preliminary No growth in 3 days 07/10/18 11:20 Blood - Peripheral Anaerobic Blood Culture - Preliminary No growth in 3 days Assessment and Plan - Assessment (1) HIV (human immunodeficiency virus infection) Code(s): B20 - Human immunodeficiency virus [HIV] disease Status: Chronic (2) Dara esophagitis Code(s): B37.81 - Candidal esophagitis Status: Acute (3) PNA (pneumonia) Code(s): J18.9 - Pneumonia, unspecified organism Status: Acute (4) HTN (hypertension) Code(s): I10 - Essential (primary) hypertension Status: Chronic - Plan This is a 43-year-old CM with a PMHx of HTN, HIV/AIDS (last CD4 count 31), and Hx of Burkitt's Lymphoma admitted for inpatient management of pneumonia versus pulmonary mass, on antibiotics and managed by ID, HD #7 1. Left Upper Lobe Pneumonia versus Mass Chest CT significant for 2.8 cm focal consolidation versus mass in the left upper lobe Cont. Azithromycin, Ceftriaxone, and Doxycycline started on 07/09 Sputum Cx from 07/09- heavy normal rosita, AFB pending, Fungal Cx pending Neg Strep, Neg Legionella, Neg Flu Infectious disease consulted, appreciate assistance with mgmt Pulmonary consulted, appreciate assistance with mgmt s/p needle biopsy of lung mass pending path Lung Tissue Cx from 07/12, S. Aureus pending sensitivities Bld Cx from 07/10 NG at 3 days x4 Myobacterium Neg Reccs Per ID 07/09: sputum culture: bacterial, AFB, fungal TB isolation consult pulmonary: ? BAL vs bx CD4 count Reccs Per Pulm 07/11: MARY ELLEN MASS/INFILTRATE PLAN NEEDLE BX ANTIBX PER ID 2. HIV/AIDS Pending CD4 count Resumed home antiretrovirals at this time, Atoraquone, Darunavir, Tivicay, Norvir, and Tenofovir, adjust per ID reccs Patient has not been compliant with his MAC/PCP prophylaxis Neg Cryptococcus, Neg RPR 3. Oropharyngeal candidiasis/Esophageal Candidiasis, improving Cont. Fluconazole started on 07/09 4. Neutropenia Cont. Neutropenic precautions WBC 1.4 today Cont. to monitor 5. Anemia Secondary to chronic disease/DILSHAD Hgb 7.9 from 8.2 Cont. to monitor DILSHAD per studies, Cont. FeSulfate 6. Hx of HTN BP stable Continue home Lisinopril Continue to monitor 7. Hx of Burkitt's Lymphoma Noted. 8. Anorexia, improving Likely due to advanced disease Patient tolerating PO but with decreased appetite Cont. Megace daily to see if it assists with sx 9. DVT PPX: SCD's 10. Dispo: Pending CD4 count and lung Bx results, follow-up pulmonary recommendations. Discussed Condition With: patient, RN
[2018-07-14] MEDS: DARUNAVIR 600 MG PO SCH (08:38)
[2018-07-14] MEDS: Lisinopril 5 MG Tablet PO SCH (08:38)
[2018-07-14] MEDS: Nystatin/Diphenhydramine/Lidocaine Mouthwash (Adult) 120 ML Botttle SWISH-SWAL SCH ×2 (08:38→13:08)
[2018-07-14] MEDS: Tenofovir 300 MG Tablet PO SCH (08:38)
[2018-07-14] MEDS: ATOVAQUONE 750 MG/5 ML PO SCH ×2 (08:38→13:09)
[2018-07-14] MEDS: Ferrous Sulfate 325 MG Tablet PO SCH (08:38)
[2018-07-14 12:58] VITALS: BP 126/72; PULSE 68; RESP 22; TEMP 98
--- NOTE | 2018-07-14 15:03 | P.DS ---
Date of admission: 07/09/18 00:35 Primary care physician: UNKNOWN Brief History from admission: This is a 43-year-old AAM with PMHx of HIV (last CD4 count 31), and hx of Burkitt's Lymphoma who presents to the ED for the evaluation of chest pain and shortness of breath x1.5 weeks. +chills +night sweats. Patient is noncompliant with his medications and is supposed to be on azithromycin for MAC and PCP prophylaxis however he stopped taking it because he states it makes him "feel sick." The patient's medication regiment consists of tivicay, prezista, norvir and viread however he reports he does not take them as prescribed. DS: Diagnosis - Discharge Diagnosis (1) HIV (human immunodeficiency virus infection) Status: Chronic (2) Dara esophagitis Status: Acute (3) PNA (pneumonia) Status: Acute (4) HTN (hypertension) Status: Chronic DS: Summary Hospital Course: This is a 43-year-old AAM with a PMHx of HTN, HIV/AIDS (last CD4 count 31), and Hx of Burkitt's Lymphoma admitted for inpatient management of pneumonia versus pulmonary mass. Patient was started on Azithromycin, Ceftriaxone, and Doxycycline. CT Chest showed a 2.8 cm focal consolidation versus mass in the left upper lobe. Pulm was consulted and a lung bx was performed on 07/12 with path pending on the day of D/C. ID was consulted and assisted with care. Home HIV meds were continued, patient was encouraged by the importance of compliance. Patient had neutropenia on admission and was placed on neutropenic precautions. Patient also had anemia secondary to chronic disease and iron deficiency anemia and was placed on ferrous sulfate. Due to oropharyngeal candidiasis patient was placed on Fluconazole. On the day of discharge, I spent over 30 minutes with the patient as he reported that he wanted to leave AGAINST MEDICAL ADVICE. Patient was advised the importance of continuing antibiotic therapy as well as awaiting the CD4 count results as well as the results from the lung biopsy pathology. Patient was adamant that he wanted to go home, however did report that he will make an outpatient appointment with Dr. Peguero to F/U the lung pathology. Patient was encouraged compliance with his HIV regimen as well as follow-up with his ID physician. Patient left AMA and therefore was not given prescriptions. Micro: Sputum Cx from 07/09- heavy normal rosita, AFB pending, Fungal Cx pending Neg Strep, Neg Legionella, Neg Flu Needle biopsy of lung mass from 07/12 pending pathology Lung Tissue Cx from 07/12, S. Aureus pending sensitivities Bld Cx from 07/10 NG at 3 days x4 Myobacterium Neg Neg Cryptococcus, Neg RPR - Time Spent with Patient Total time spent providing and/or coordinating discharge services: Greater than 30 minutes - Quality: VTE Deep Vein Thrombosis/Pulmonary Embolism Present on Admission: No Exam Vital signs: Vital Signs 07/13/18 16:00 07/13/18 20:00 07/14/18 00:00 Temperature 97.9 F 98.1 F Pulse Rate 71 66 83 Respiratory Rate 16 18 18 Blood Pressure 130/72 121/64 114/64 Pulse Oximetry 100 100 100 07/14/18 02:32 07/14/18 04:00 07/14/18 05:48 Temperature 97.8 F Pulse Rate 62 Respiratory Rate 17 17 16 Blood Pressure 118/70 Pulse Oximetry 100 07/14/18 08:00 07/14/18 12:00 Temperature 98.2 F 98.0 F Pulse Rate 66 68 Respiratory Rate 18 22 Blood Pressure 118/65 126/72 Pulse Oximetry 100 100 Intake & Output 07/13/18 07/14/18 07/14/18 18:59 06:59 18:59 Intake Total 542 / 542 650 / 650 Output Total 575 / 575 1600 / 1600 Balance -33 / -33 -950 / -950 Weight 89.9 kg Intake: IV 100 / 100 650 / 650 Azithromycin Inj 500 MG In NS 250 / 250 Inj 250 ML @ 250 mls/hr IV.SIG Q24H [facility] Rx#:[id number] Doxy 100 Inj 100 MG In NS Inj 100 / 100 100 / 100 100 ML @ 100 mls/hr IV.SIG Q12H [facility] Rx#:[id number] Diflucan 400 mg Premix Bag 200 200 / 200 ML @ 100 mls/hr IV.SIG Q24H [facility] Rx#:[id number] Rocephin Inj 2,000 MG In NS Inj 100 / 100 100 ML @ 200 mls/hr IV.SIG Q24H [facility] Rx#:[id number] Oral 442 / 442 Output: Urine 575 / 575 1600 / 1600 Other: # Voids 2 Date of Last Bowel Movement 10/20/18 10/23/18 10/23/18 Narrative: GENERAL: Well-nourished -English male, in no acute distress, lying comfortably in bed SKIN: Warm and dry. Dryness of BL lower extremities. HEENT: Normocephalic. No scleral icterus. No injection or drainage. PERRLA. MOM. NECK: Supple, trachea midline. No JVD or lymphadenopathy. CARDIOVASCULAR: Regular rate and rhythm without murmurs, gallops, or rubs. RESPIRATORY: Breath sounds equal bilaterally. No accessory muscle use. GASTROINTESTINAL: Abdomen soft, non-tender, nondistended. MUSCULOSKELETAL: No cyanosis, or edema. BACK: Nontender without obvious deformity. No CVA tenderness. NEURO: AAO x3, no focal deficits Results Procedures completed during hospitalization: lung bx Pending studies at discharge: lung bx pathology CD4 count Labs on day of discharge: Labs from last 24 hours 07/13/18 07/10/18 19:30 07:59 Absolute Lymphocytes 224 L % CD3 Cells 82 Absolute CD3 Count 183 L % CD3-/CD16+/CD56+ 18 Abs CD3-/CD16+/CD56+ 38 L % CD4 Cells 3 L Absolute CD4 Count Less than 20 L T-Help/Suppress Ratio 0.10 L % CD8 Cells 78 H Absolute CD8 Count 183 % CD19 Cells 1 L Absolute CD19 Count Less than 20 L M.tuberculosis DNA (PCR) Not detected Preliminary micro results at discharge 07/10/18 11:35 Aerobic Blood Culture - Preliminary Blood - Peripheral No growth in 4 days Anaerobic Blood Culture - Preliminary No growth in 4 days 07/10/18 11:20 Aerobic Blood Culture - Preliminary Blood - Peripheral No growth in 4 days Anaerobic Blood Culture - Preliminary No growth in 4 days - Impressions ITS Impressions Chest CTA 07/08/18 21:44 CONCLUSION: 1. No pulmonary embolus. 2. 2.8 cm focal consolidation or mass in the left upper lobe. This could represent a focal area of pneumonia. Underlying neoplasm cannot be excluded. At the very least that should be followed. This could be further evaluated with a PET FDG study as an outpatient. Lung Biopsy CT 07/12/18 00:00 CONCLUSION: Uncomplicated CT guided biopsy. Chest X-Ray 07/12/18 12:56 CONCLUSION: 1. No significant pneumothorax following left upper lobe lung mass biopsy. Discharge Plan - Discharge Disposition Patient Disposition: 07 Against Medical Advice - Discharge Condition Condition: Fair - Discharge Order Discharge Orders: AMA Discharge (Routine); Ordered 07/14/18 Ordered By: Sandra Bernard - Physicians Team Primary Care Provider: UNKNOWN, Attending Provider: Sandra Bernard Other Providers: Amalia King MD ; [employer] ; Sudhir Peguero MD
== END 2018-07-14 14:59 | disposition left against medical advice (07) ==
LOC: NEPD 19:46 → NEDA 07-09 00:35 → N05 07-09 12:40
PROVIDERS: ADMIT Family Medicine; ATTEND Family Medicine

== ENCOUNTER 2018-10-12 17:13 | Inpatient (IN) ==
[2018-10-12] MEDS ORDERED: Sod Chloride 0.9% Inj 1,000 ML IV.SIG ONE ×2 (19:17→20:06)
[2018-10-12] MEDS ORDERED: Aztreonam Inj 2 GM in Sodium Chloride 0.9% Inj 100 ML IV.SIG STA (19:17)
[2018-10-12] MEDS ORDERED: Acetaminophen 325 MG Tablet PO ONE (19:19)
[2018-10-12 19:44] LABS: Hemoglobin 9.8 gm/dL (13.0-17.0); Mean Corpuscular HGB Conc 32.7 % (32.0-36.0); Mean Corpuscular Hemoglobin 30.3 pg (27.0-34.0); Mean Corpuscular Volume 92.9 fL (80.0-100.0); Mean Platelet Volume 9.5 fL (7.0-11.0); Platelet Count 118 th/mm3 (150-450); Red Blood Count 3.23 mil/mm3 (4.50-5.90); Red Cell Distribution Width 16.9 % (11.6-17.2)
--- NOTE | 2018-10-12 19:48 | XR ---
EXAM DATE: 10/12/2018 7:46 PM EST AGE/SEX: 43 years / Male INDICATIONS: Chest pain and flu like symptoms for two days. CLINICAL DATA: This is the patient's initial encounter. Patient reports that signs and symptoms have been present for 2 days and indicates a pain score of 7/10. MEDICAL/SURGICAL HISTORY: . Lymphoma. Left lung mass, HIV None. COMPARISON: No prior exams available for comparison. FINDINGS: A single AP view of the chest demonstrates the lungs to be symmetrically aerated without evidence of mass, infiltrate or effusion. The cardiomediastinal contours are unremarkable. Osseous structures a re intact. CONCLUSION: The lungs are clear. Electronically signed by: Thai Dsouza MD Board Certified Radiologist 10/12/2018 7:47 PM EST
--- NOTE | 2018-10-12 19:49 | ED ---
HPI General Chief complaint: Respiratory Symptoms Stated complaint: cold symptoms Time Seen by Provider: 10/12/18 19:02 Source: patient Limitations: no limitations History of Present Illness HPI narrative: The patient is a 43 year old male who presents to the [facility] emergency department with a history of reportedly feeling ill since or Thursday of this past week. The patient reports that he had cough, congestion, sore throat, and fever. The patient is unsure how high his fever has been at home. He reports having associated nausea and then vomiting that began the day he reports having 3 episodes of vomiting this morning. He denies having any diarrhea. He reports that he suffers from chronic constipation. The patient reports that his last bowel movement was Thursday or Thursday of this past week. 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 The patient's last CD4 count was less than 50. He is unsure what his viral load was. The patient is not followed by infectious disease currently. He reports that he has not been taking his HIV medications. The patient reports that today he has been having chest pain in the center of his chest, upper aspect that he describes as a tightening sensation. He reports having a headache over the right frontal sinus. He reports having a clear rhinorrhea. His cough is productive of yellow sputum. He denies having any hemoptysis. On review of systems otherwise, the patient denies having any neck pain or stiffness, abdominal pain, urinary symptoms, or focal neurologic symptoms. The patient reports having shortness of breath with exertion. The patient reports having generalized weakness. The patient's past surgical history is significant for having a chemotherapy port placed in the scalp for a brain tumor. The patient also has a history of brain aneurysm surgery x2 in [place]. Related Data Home Medications Medication Instructions Recorded Confirmed atovaquone [Mepron] 750 mg PO TID 07/10/18 07/10/18 darunavir ethanolate [Prezista] 600 mg PO BID 07/10/18 07/10/18 dolutegravir [Tivicay] 50 mg PO BID 07/10/18 07/10/18 hydrocodone-acetaminophen 1 tab PO Q6H PRN 07/10/18 07/10/18 lisinopril 5 mg PO DAILY 07/10/18 07/10/18 ritonavir [Norvir] 100 mg PO BID 07/10/18 07/10/18 tenofovir disoproxil fumarate 300 mg PO DAILY 07/10/18 07/10/18 [Viread] Allergies Allergy/AdvReac Type Severity Reaction Status Date / Time albuterol Allergy Intermediate Hives Verified 03/15/18 16:58 azithromycin Allergy Hives Verified 07/08/18 19:59 Review of Systems ROS: all other systems reviewed are negative [facility] Medical History Medical History HIV (human immunodeficiency virus infection) (Acute) Lymphoma (Acute) Surgical History Surgical History Status post chemotherapy (Acute) No history of previous surgery (Acute) Family History Family History Other No pertinent family history Social History Social History Substance History: Active Abuse Second Hand Smoke Exposure: Yes Smoking Status: Former smoker Tobacco Type: Cigarettes How Often Do You Have a Drink Containing Alcohol: Monthly or less Recent Travel in [facility] within the Last 8 Weeks: No Recent Out of Country Travel within the Last 8 Weeks: No Immunization History Tetanus Immunization: Unsure Exam Const General: cooperative, no acute distress and well developed Nutritional Appearance: well nourished Orientation: alert, awake and oriented x3 HENMT Head: normocephalic and atraumatic Nose: no epistaxis and other (Nose is midline septum with erythematous edematous nasal mucosa and a clear to white nasal discharge.) Face and sinus: sinus tenderness (Sinus tenderness on palpation of the right maxillary and frontal sinus.) frontal and maxillary Mouth: moist mucous membranes Throat: uvula midline and other (No evidence of thrush, mild erythema the posterior oropharynx.) Eyes Sclera: normal sclerae Pupils: PERRL Neck Neck: no meningeal signs, trachea midline and no JVD Resp Effort & Inspection: no use of accessory muscles Auscultation: no crackles, no rhonchi, no wheezes and other (The patient has diminished breath sounds noted in the left lung base.) Cardio Rate: tachycardic (Sinus tachycardia in the low 100s. No pulse deficits to the extremities on simultaneous auscultation and palpation of his radial artery) Rhythm: regular rhythm Heart Sounds: no murmurs GI Inspection: non-distended Palpation: soft, no hepatosplenomegaly, no guarding, not rigid and nontender Auscultation: normal bowel sounds Back/Spine/Pelvis Back: no CVA tenderness Skin General: dry skin (warm) Neuro General: alert, awake, oriented x3 and other (Grossly nonfocal) Speech: speech normal Motor: no movement abnormalities noted Extrem General: normal to inspection (2+ pulses in all 4 extremities.), no calf tenderness, no clubbing, no cyanosis and no edema Psych Mood: congruent mood Affect: normal affect Judgment: judgment good Course Initial Documented Vital Signs Temperature 100.4 F H 10/12/18 17:18 Pulse Rate 126 H 10/12/18 17:18 Respiratory Rate 18 10/12/18 17:18 Blood Pressure 106/61 10/12/18 17:18 Pulse Oximetry 98 10/12/18 17:18 Last Documented Vital Signs Temperature 100.4 F H 10/12/18 17:18 Pulse Rate 126 H 10/12/18 19:25 Respiratory Rate 18 10/12/18 17:18 Blood Pressure 106/61 10/12/18 17:18 Pulse Oximetry 93 L 10/12/18 19:25 Critical Care Time Critical Care Time: Yes Total Critical Care Time: 35 Attestation: Aggregate critical care time was 35 minutes. Time to perform other separately billable procedures was not included in the critical care time. My time did not include minutes spent treating any other patients simultaneously or on activities that did not directly contribute to the patient's treatment. The services I provided to this patient were to treat and/or prevent clinically significant deterioration that could result in: Cardiovascular collapse from septic shock, versus respiratory failure from fluid overload from crystalloid resuscitation, versus respiratory failure from underlying pulmonary infectious process. I provided critical care services requiring my management, as noted below: Chart data review, documentation time, medication orders and management, vital sign assessments/reviewing monitor data, ordering and reviewing lab tests, ordering and interpreting/reviewing x-rays and diagnostic studies, care of the patient and discussion of the patient with the admitting physicians. Medical Decision Making MDM Narrative Medical decision making narrative: During the course of the patient's emergency department visit, the patient's history, examination, and differential diagnosis were reviewed with the patient. The patient was placed on a acquisitions librarian with oximetry and frequent blood pressure monitoring. The patient had IV access obtained and blood work sent for analysis. A diagnostic evaluation was started regarding the patient's cough, congestion, chest pain, shortness of breath associated with fever and immunosuppression. A sepsis workup was initiated. The patient was initially provided normal saline 1 L IV fluid bolus. Broad- spectrum antibiotic coverage for suspected pulmonary source of sepsis was started. The patient has a reported allergy to a azithromycin, therefore Azactam and Levaquin were started. The patient was given Tylenol for fever. The patient's diagnostic studies are remarkable for a white count of 1.7, hemoglobin 9.8, platelets 118 in a patient with a history of thrombocytopenia noted in the past, monocytosis 38.8, neutrophil number is 0.4 consistent with neutropenic fever. PT 10.9, PTT 34.5, chemistry is remarkable for a GFR of 86, AST 14, troponin I is less than 0.02, lipase 60, the patient's chest x-ray shows no acute cardiopulmonary disease, no infiltrate noted. CT scan of the brain showed no acute intracranial abnormality, prior right frontal ventriculostomy, partial opacification of the right ethmoid air cells consistent with an ethmoid sinusitis. The patient was provided a second liter of normal saline IV fluids. The patient was given Zofran for nausea after one episode of vomiting in the emergency department. The patient was given cefepime for neutropenic sepsis. The patient's case including history, pertinent physical examination findings, and laboratory studies were discussed with Dr. Ruelas, the six sigma black trainer. It was agreed that the patient would be admitted to the six sigma black trainer's service. The patient's results were discussed with the patient, including the plan of care. I explained that further testing and/ or monitoring is indicated based on the patient's history, examination, and/ or laboratory findings. Therefore, I recommended admission for additional evaluation. The patient expressed understanding and was agreeable with this plan. The patient was admitted to the hospital in guarded condition and sent to a bed under the care of the six sigma black trainer service. Medical Screen Exam Complete: Yes Emergency Medical Condition: Yes Differential Diagnosis Differential Diagnosis: Pneumonia, versus sepsis of undetermined cause, versus neutropenia, versus MAC, versus pneumocystis Medical Records Medical records reviewed: Yes I reviewed the patient's medical records. Lab Data Lab results reviewed: Yes I reviewed the patient's lab results. Result diagrams: 10/12/18 19:10 10/12/18 19:10 Lab Results 10/12/18 10/12/18 10/12/18 Range/Units 19:10 19:10 19:10 WBC 1.7 L (4.0-11.0) th/mm3 RBC 3.23 L (4.50-5.90) mil/mm3 Hgb 9.8 L (13.0-17.0) gm/dL Hct 30.0 L (39.0-51.0) % MCV 92.9 (80.0-100.0) fL MCH 30.3 (27.0-34.0) pg MCHC 32.7 (32.0-36.0) % RDW 16.9 (11.6-17.2) % Plt Count 118 L (150-450) th/mm3 MPV 9.5 (7.0-11.0) fL Prelim Diff (Auto) Manual diff required Neut % (Auto) Sharepoint Net Developer Lymph % (Auto) Sharepoint Net Developer Graves % (Auto) Sharepoint Net Developer Eos % (Auto) Sharepoint Net Developer Baso % (Auto) Sharepoint Net Developer Neut # (Auto) Sharepoint Net Developer Lymph # (Auto) Sharepoint Net Developer Graves # (Auto) Sharepoint Net Developer Eos # (Auto) Sharepoint Net Developer Baso # (Auto) Sharepoint Net Developer WBC Differential Manual diff final Seg Neuts % (Manual) 16 (16-70) % Band Neuts % (Manual) 10 H (0-6) % Lymphocytes % (Manual) 26 (9-44) % Atypical Lymphs % (Man) 12 H (0-0) % Monocytes % (Manual) 24 H (0-8) % Eosinophils % (Manual) 4 (0-4) % Metamyelocytes % (Man) 4 H (0-1) % Blast Cells % (Manual) 4 H (0-0) % Abs Neuts (Manual) 0.5 L* (1.8-7.7) th/mm3 Nucleated RBCs/100 WBC 4 H (0-0) /100 WBC Differential Comment . Toxic Vacuolation Present H (None) Platelet Estimate Low L (Normal) Platelet Morphology Enlarged H (Normal) Tear Drop Cells 1+ H (None) Ovalocytes 1+ H (None) PT 10.9 (9.8-11.6) sec INR 1.1 Ratio APTT 34.5 H (23.4-31.7) sec Sodium 136 (136-145) meq/L Potassium 4.0 (3.5-5.1) meq/L Chloride 100 (98-107) meq/L Carbon Dioxide 28.2 (21.0-32.0) meq/L Anion Gap 8 (5-15) meq/L BUN 17 (7-18) mg/dL Creatinine 1.14 (0.60-1.30) mg/dL Estimated GFR 86 L (>89) mL/min Random Glucose 87 (74-106) mg/dL Lactic Acid (0.4-2.0) mmol/L Calcium 8.5 (8.5-10.1) mg/dL Magnesium (1.5-2.5) mg/dL Total Bilirubin 0.4 (0.2-1.0) mg/dL AST 14 L (15-37) U/L ALT 13 (12-78) U/L Alkaline Phosphatase 75 (45-117) U/L Total Creatine Kinase (39-308) U/L CK-MB (CK-2) (0.5-3.6) ng/mL Troponin I Less than 0.02 L (0.02-0.05) ng/mL Total Protein 7.5 (6.4-8.2) g/dL Albumin 3.3 L (3.4-5.0) g/dL Lipase 60 L (73-393) U/L 10/12/18 10/12/18 Range/Units 19:10 19:15 WBC (4.0-11.0) th/mm3 RBC (4.50-5.90) mil/mm3 Hgb (13.0-17.0) gm/dL Hct (39.0-51.0) % MCV (80.0-100.0) fL MCH (27.0-34.0) pg MCHC (32.0-36.0) % RDW (11.6-17.2) % Plt Count (150-450) th/mm3 MPV (7.0-11.0) fL Prelim Diff (Auto) Neut % (Auto) Lymph % (Auto) Graves % (Auto) Eos % (Auto) Baso % (Auto) Neut # (Auto) Lymph # (Auto) Graves # (Auto) Eos # (Auto) Baso # (Auto) WBC Differential Seg Neuts % (Manual) (16-70) % Band Neuts % (Manual) (0-6) % Lymphocytes % (Manual) (9-44) % Atypical Lymphs % (Man) (0-0) % Monocytes % (Manual) (0-8) % Eosinophils % (Manual) (0-4) % Metamyelocytes % (Man) (0-1) % Blast Cells % (Manual) (0-0) % Abs Neuts (Manual) (1.8-7.7) th/mm3 Nucleated RBCs/100 WBC (0-0) /100 WBC Differential Comment Toxic Vacuolation (None) Platelet Estimate (Normal) Platelet Morphology (Normal) Tear Drop Cells (None) Ovalocytes (None) PT (9.8-11.6) sec INR Ratio APTT (23.4-31.7) sec Sodium (136-145) meq/L Potassium (3.5-5.1) meq/L Chloride (98-107) meq/L Carbon Dioxide (21.0-32.0) meq/L Anion Gap (5-15) meq/L BUN (7-18) mg/dL Creatinine (0.60-1.30) mg/dL Estimated GFR (>89) mL/min Random Glucose (74-106) mg/dL Lactic Acid 0.7 (0.4-2.0) mmol/L Calcium (8.5-10.1) mg/dL Magnesium 1.7 (1.5-2.5) mg/dL Total Bilirubin (0.2-1.0) mg/dL AST (15-37) U/L ALT (12-78) U/L Alkaline Phosphatase (45-117) U/L Total Creatine Kinase 123 (39-308) U/L CK-MB (CK-2) Less than 1.0 (0.5-3.6) ng/mL Troponin I (0.02-0.05) ng/mL Total Protein (6.4-8.2) g/dL Albumin (3.4-5.0) g/dL Lipase (73-393) U/L Imaging Data Radiologist's impression: Chest X-Ray 10/12/18 19:07 CONCLUSION: The lungs are clear. Head CT 10/12/18 20:07 CONCLUSION: 1. No acute intracranial abnormalities. Right frontal ventriculostomy. Partial opacification right ethmoid air cells. . ECG Data Attestation: I personally reviewed and interpreted this ECG as follows: Interpretation: Patient had an EKG done on arrival. The patient's EKG reveals a sinus tachycardia rate of 109, QRS duration is 78 ms, QTC [address] segment elevation. T waves are inverted in V1. Discharge Plan Discharge Disposition Patient Disposition: ED Admit(ED Internal Use Only) Discharge Order Discharge Orders: ED Use Only Admit Order (Routine); Ordered 10/12/18 Ordered By: Marina Erazo Discharge Details Diagnosis: Fever and neutropenia Physicians Team ED Provider: Marina Erazo Attending Provider: Juan Day Rxs /Orders / Referrals /Forms Prescriptions: No Action hydrocodone-acetaminophen 7.5-325 mg Tablet 1 tab PO Q6H PRN (Reason: Pain) RF: 0 tenofovir disoproxil fumarate [Viread] 300 mg Tablet 300 mg PO DAILY RF: 0 lisinopril 5 mg Tablet 5 mg PO DAILY RF: 0 atovaquone [Mepron] 750 mg/5 mL Suspension 750 mg PO TID RF: 0 darunavir ethanolate [Prezista] 600 mg Tablet 600 mg PO BID RF: 0 ritonavir [Norvir] 100 mg Tablet 100 mg PO BID RF: 0 dolutegravir [Tivicay] 50 mg Tablet 50 mg PO BID RF: 0 Status ED Status: With Doctor
[2018-10-12 19:55] LABS: Albumin 3.3 g/dL (3.4-5.0); Anion Gap 8 meq/L (5-15); Aspartate Aminotransferase 14 U/L (15-37); Blood Urea Nitrogen 17 mg/dL (7-18); Calcium 8.5 mg/dL (8.5-10.1); Carbon Dioxide 28.2 meq/L (21.0-32.0); Chloride 100 meq/L (98-107); Glomerular Filtration Rate 86 mL/min (>89); Glucose,Random 87 mg/dL (74-106); Lipase 60 U/L (73-393); Sodium 136 meq/L (136-145)
[2018-10-12 19:57] LABS: Activated Partial Thrombo Time 34.5 sec (23.4-31.7); Alanine Aminotransferase 13 U/L (12-78); INR 1.1 Ratio; Magnesium 1.7 mg/dL (1.5-2.5); Prothrombin Time 10.9 sec (9.8-11.6)
[2018-10-12 19:58] LABS: Creatine Kinase 123 U/L (39-308)
[2018-10-12 20:01] LABS: Alkaline Phosphatase 75 U/L (45-117); Total Protein 7.5 g/dL (6.4-8.2)
[2018-10-12 20:04] LABS: White Blood Count 1.7 th/mm3 (4.0-11.0)
--- NOTE | 2018-10-12 20:53 | CT ---
EXAM DATE: 10/12/2018 8:47 PM EST AGE/SEX: 43 years / Male INDICATIONS: Cephalgia. CLINICAL DATA: This is the patient's initial encounter. Patient reports that signs and symptoms have been present for 4 - 6 days and indicates a pain score of 8/10. MEDICAL/SURGICAL HISTORY: HIV. Lymphoma. None. RADIATION DOSE: 56.35 CTDI (mGy) COMPARISON: [facility] [place], CT BRAIN W/O CONTRAST, 02/23/2018. . TECHNIQUE: CT of the head without contrast. Using automated exposure control and adjustment of the mA and/or kV according to patient size, radiation dose was kept as low as reasonably achievable to ob tain optimal diagnostic quality images. DICOM format image data is available electronically for revi ew and comparison. FINDINGS: No intracranial mass effect or midline shift. No hydrocephalus. Right frontal ventriculostomy tube st able in appearance. Stable decreased attenuation around the jejunostomy. No new hemorrhage or mass ef fect. Partial opacification right posterior ethmoids. CONCLUSION: 1. No acute intracranial abnormalities. Right frontal ventriculostomy. Partial opacification right e thmoid air cells. . Electronically signed by: Jj Arenas MD Board Certified Radiologist 10/12/2018 8:51 PM EST
[2018-10-12 20:56] LABS: Atypical Lymphs 12 % (0-0); Eosinophils 4 % (0-4); Lymphocytes 26 % (9-44); Metamyelocytes 4 % (0-1); Monocytes 24 % (0-8); Tallied Nucleated RBC 2 (0-0)
[2018-10-12 20:59] LABS: Ovalocytes 1+; Tear Drop Cells 1+
[2018-10-12 21:00] LABS: Toxic Vacuolation Present
[2018-10-12] MEDS ORDERED: Acetaminophen 325 MG Tablet PO PRN (21:15)
[2018-10-12] MEDS ORDERED: Bisacodyl 10 MG Supp RECTAL PRN (21:15)
[2018-10-12] MEDS ORDERED: Vancomycin Consult Pharmacy OTHER PRN (21:23)
--- NOTE | 2018-10-12 21:24 | P.HPCC ---
History of Present Illness Primary Care Physician: OSWALDO GOFF History of Present Illness: 43 year old male presents to the [facility] emergency department with a history of feeling ill since or Thursday of this past week. The patient reports that he had cough, congestion, sore throat, and fever. He is unsure how high his fever has been at home. He reports having associated nausea and then vomiting that began the day he reports having 3 episodes of vomiting this morning. He denies having any diarrhea. He reports that he suffers from chronic constipation. The patient reports that his last bowel movement was Thursday or Thursday of this past week. 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 The patient's last CD4 count was less than 50. He is unsure what his viral load was. The patient is not followed by infectious disease currently. He reports that he has not been taking his HIV medications. The patient reports that today he has been having chest pain in the center of his chest, upper aspect that he describes as a tightening sensation. He reports having a headache over the right frontal sinus. He reports having a clear rhinorrhea. His cough is productive of yellow sputum. He denies having any hemoptysis. On review of systems otherwise , the patient denies having any neck pain or stiffness, abdominal pain, urinary symptoms, or focal neurologic symptoms. The patient reports having shortness of breath with exertion. The patient reports having generalized weakness. Inpatient Certification: I certify that the inpatient services were ordered in accordance with Medicare regulations governing the order. This includes certification that hospital inpatient services are reasonable and necessary and in the case of services not specified as inpatient-only under 42 CFR 419.22(n), that they are appropriately provided as inpatient services in accordance to with the 2-midnight benchmark under 43 CFR 412.3(e) Estimated Total Length of Stay (Days): 5 Plans for Post Hospital Care: Not yet determined Review of Systems All other systems reviewed negative except as stated in HPI PMFSH - History History Provided By: Patient - Medical History Medical History: Medical History (Last Reviewed 10/12/18 @ 19:46 by Marina Erazo MD) HIV (human immunodeficiency virus infection) Lymphoma - Surgical History Surgical History: Surgical History (Last Reviewed 10/12/18 @ 19:46 by Marina Erazo MD) Status post chemotherapy No history of previous surgery - Family History Family History: Family History (Last Reviewed 10/12/18 @ 19:46 by Marina Erazo MD) Other No pertinent family history - Tobacco History Second Hand Smoke Exposure: Yes Smoking Status: Former smoker Tobacco Type: Cigarettes - Alcohol History How Often Do You Have a Drink Containing Alcohol: Monthly or less - Substance Use History Substance History: Active Abuse - Travel History Recent Travel in the [place] Within the Last 8 Weeks: No Recent Travel Out of the Country Within the Last 8 Weeks: No - Immunization History Tetanus Immunization: Unsure Medications and Allergies Active Medications: Active Medications Acetaminophen (Tylenol) 650 mg PO Q6H PRN PRN Reason: PAIN 1-10 AND/OR FEVER >101F Hydrocodone Bitart/Acetaminophen ([place] 7.5/325) 1 tab PO Q6H PRN PRN Reason: Pain Al Hydroxide/Mg Hydroxide (Milk Of Magnesia Liq) 30 ml PO Q12H PRN PRN Reason: Mild Constipation Bisacodyl (Dulcolax Supp) 10 mg RECTAL DAILY PRN PRN Reason: SEVERE CONSITIPATION Chlorhexidine Gluconate (Chlorhexidine 2% Cloth) 3 pack TOPICAL DAILY@0400 [place] Stop: 10/18/18 03:59 Chlorhexidine Gluconate (Chlorhexidine 2% Cloth) 3 pack TOPICAL DAILY@0400 PRN PRN Reason: Extra cloth needed Stop: 10/18/18 03:59 Enoxaparin Sodium (Lovenox Inj) 40 mg SQ Q24H [place] Famotidine (Pepcid Pf Inj) 20 mg IV.PUSH Q12HR [place] Cefepime HCl 2,000 mg/ Sodium (Chloride) 100 mls @ 200 mls/hr IV.SIG STAT STA Stop: 10/12/18 21:30 Sodium Chloride (Ns Inj) 1,000 mls @ 84 mls/hr IV.CONT .[id number] [place] Cefepime HCl 2,000 mg/ Sodium (Chloride) 100 mls @ 200 mls/hr IV.SIG Q8H [place] Ipratropium [place] (Atrovent Neb) 0.5 mg NEB Q2HR NEB PRN PRN Reason: WHEEZING Lactulose (Lactulose Liq) 30 ml PO DAILY PRN PRN Reason: SEVERE CONSITIPATION Ondansetron HCl (Zofran Inj) 4 mg IV.PUSH Q6H PRN PRN Reason: NAUSEA OR VOMITING Pharmacy Profile Note (Vancomycin Consult Pharmacy) 1 each OTHER UNSCH PRN PRN Reason: Pharmacy to dose Senna/Docusate Sodium ([place]-Colace) 1 tab PO BID [facility] Sennosides (Senokot) 17.2 mg PO Q12H PRN PRN Reason: Moderate Constipation Sodium Chloride (Ns Flush) 2 ml IV.FLUSH UNSCH PRN PRN Reason: FLUSH AFTER USING IV ACCESS Sodium Chloride (Ns Flush) 2 ml IV.FLUSH BID [place] Sodium Chloride (Ns Flush) 2 ml IV.FLUSH PRN PRN PRN Reason: FLUSH AFTER USING IV ACCESS Temazepam (Restoril) 15 mg PO HS PRN PRN Reason: INSOMNIA Trimethoprim/Sulfamethoxazole (Bactrim Ds) 1 tab PO Q12HR [place] Allergies Allergy/AdvReac Type Severity Reaction Status Date / Time albuterol Allergy Intermediate Hives Verified 03/15/18 16:58 azithromycin Allergy Hives Verified 07/08/18 19:59 Home Medications Medication Instructions Recorded Confirmed Type atovaquone [Mepron] 750 mg PO TID 07/10/18 10/12/18 History darunavir ethanolate [Prezista] 600 mg PO BID 07/10/18 10/12/18 History dolutegravir [Tivicay] 50 mg PO BID 07/10/18 10/12/18 History hydrocodone-acetaminophen 1 tab PO Q6H PRN 07/10/18 10/12/18 History lisinopril 5 mg PO DAILY 07/10/18 10/12/18 History ritonavir [Norvir] 100 mg PO BID 07/10/18 10/12/18 History tenofovir disoproxil fumarate 300 mg PO DAILY 07/10/18 10/12/18 History [Viread] Results - Labs CBC & Chem 7: 10/12/18 19:10 10/12/18 19:10 Labs: Short CBC 10/12/18 Range/Units 19:10 WBC 1.7 L (4.0-11.0) th/mm3 Hgb 9.8 L (13.0-17.0) gm/dL Hct 30.0 L (39.0-51.0) % Plt Count 118 L (150-450) th/mm3 BMP 10/12/18 19:10 Sodium 136 Potassium 4.0 Chloride 100 Carbon Dioxide 28.2 BUN 17 Creatinine 1.14 Calcium 8.5 Cardiac Enzymes 10/12/18 10/12/18 Range/Units 19:10 19:10 Total Creatine Kinase 123 (39-308) U/L CK-MB (CK-2) Less than 1.0 (0.5-3.6) ng/mL Troponin I Less than 0.02 L (0.02-0.05) ng/mL Liver Function 10/12/18 Range/Units 19:10 Total Bilirubin 0.4 (0.2-1.0) mg/dL AST 14 L (15-37) U/L ALT 13 (12-78) U/L Alkaline Phosphatase 75 (45-117) U/L Albumin 3.3 L (3.4-5.0) g/dL - Imaging Impressions Chest X-Ray 10/12/18 19:07 CONCLUSION: The lungs are clear. Head CT 10/12/18 20:07 CONCLUSION: 1. No acute intracranial abnormalities. Right frontal ventriculostomy. Partial opacification right ethmoid air cells. . Exam Vital signs: Vital Signs 10/12/18 17:18 10/12/18 19:25 Temperature 100.4 F H Pulse Rate 126 H 126 H Respiratory Rate 18 Blood Pressure 106/61 Pulse Oximetry 98 93 L Intake & Output 10/12/18 10/12/18 10/13/18 06:59 18:59 06:59 Weight 83.007 kg - Constitutional no acute distress - Routine HEENT Exam Head: Present: atraumatic - Routine Neck Exam Present: supple, full ROM. Absent: JVD, carotid bruit, tracheal deviation - Routine Respiratory Exam Absent: accessory muscle use, respiratory distress, rhonchi, stridor, wheezes - Routine Cardiovascular Exam Present: RRR, S1, S2 - Routine Abdominal Exam Present: soft, normoactive bowel sounds - Routine Extremities Exam Absent: cyanosis, clubbing, edema - Routine Skin Exam Absent: intact, cyanosis, erythema - Routine Neurological Exam Present: alert, oriented X3, moving all extremities Septic Shock Reassessment Septic shock perfusion: reassessment completed Caprini VTE Risk Assessment Caprini VTE Risk Assessment: Moderate/High Risk (score >= 2) Caprini Risk Assessment Model: Point Value = 1 Point Value = 2 Point Value = 3 Point Value = 5 Age 41-60 Minor surgery BMI > 25 kg/m2 Swollen legs Varicose veins or History of unexplained or recurrent spontaneous Oral contraceptives or hormone replacement Sepsis (< 1 month) Serious lung disease, including pneumonia (< 1 month) Abnormal pulmonary function Acute myocardial infarction Congestive heart failure (< 1 month) History of inflammatory bowel disease Medical patient at bed rest Age 61-74 Arthroscopic surgery Major open surgery (> 45 min) Laparoscopic surgery (> 45 min) Malignancy Confined to bed (> 72 hours) Immobilizing plaster cast Central venous access Age >= 75 History of VTE Family history of VTE Factor V Leiden Prothrombin [id number] Lupus anticoagulant Anticardiolipin antibodies Elevated serum homocysteine Heparin-induced thrombocytopenia Other congenital or acquired thrombophilia Stroke (< 1 month) Elective arthroplasty Hip, pelvis, or leg fracture Acute spinal cord injury (< 1 month) Prophylaxis Regimen: Total Risk Factor Score Risk Level Prophylaxis Regimen 0-1 Low Early ambulation 2 Moderate Order ONE of the following: *Sequential Compression Device (SCD) *Heparin 5000 units SQ BID 3-4 Higher Order ONE of the following medications: *Heparin 5000 units SQ TID *Enoxaparin/Lovenox 40 mg SQ daily (WT < 150 kg, CrCl > 30 mL/min) *Enoxaparin/Lovenox 30 mg SQ daily (WT < 150 kg, CrCl > 10-29 mL/min) *Enoxaparin/Lovenox 30 mg SQ BID (WT < 150 kg, CrCl > 30 mL/min) AND/OR *Sequential Compression Device (SCD) 5 or more Highest Order ONE of the following medications: *Heparin 5000 units SQ TID (Preferred with Epidurals) *Enoxaparin/Lovenox 40 mg SQ daily (WT < 150 kg, CrCl > 30 mL/min) *Enoxaparin/Lovenox 30 mg SQ daily (WT < 150 kg, CrCl > 10-29 mL/min) *Enoxaparin/Lovenox 30 mg SQ BID (WT < 150 kg, CrCl > 30 mL/min) AND *Sequential Compression Device (SCD) Assessment and Plan - Assessment and Plan Plan: Febrile neutropenia -Broad-spectrum antibiotic -Follow-up on culture -IV fluids -Infectious disease consultation HIV/AIDS -Antiretroviral L prophylaxis per ID Chest pain -EKG within normal limits -First troponin is negative -Series of troponins and EKG to rule out ACS -D-dimer-if positive consider CT chest PE protocol Acute kidney injury -Dehydration -IV fluid resuscitation -Strict I's and O's -Avoid nephrotoxic Thrombocytopenia -Due to above -Monitor trend DVT GI prophylaxis -Teds SCDs -Subcu Lovenox -Regular diet 35 minutes of critical care
[2018-10-12] MEDS: Enoxaparin Inj 40 MG/0.4 ML Syringe SQ SCH (22:59)
[2018-10-12] MEDS: Sod Chloride 0.9% Inj 1,000 ML IV.CONT SCH (23:00)
[2018-10-12] MEDS: Vancomycin Inj 1,000 MG in Sodium Chlor 0.9% Inj 250 ML IV.SIG SCH (23:37)
[2018-10-13] MEDS: Vancomycin Inj 1,000 MG in Sodium Chlor 0.9% Inj 250 ML IV.SIG SCH (00:44)
[2018-10-13 02:22] LABS: Bilirubin,Urine Negative (Negative); Clarity,Urine Clear (Clear); Color,Urine Yellow (Yellw/Straw); Glucose,Urine (UA) Negative (Negative); Leukocyte Esterase,Urine Negative (Negative); Mucus,Urine Few /lpf (Occasional); Nitrite,Urine Negative (Negative); Specific Gravity,Urine 1.014 (1.002-1.035)
[2018-10-13] MEDS ORDERED: Chlorhexidine Gluconate 2% 1 Pack (2 Cloths) TOPICAL PRN (04:00)
[2018-10-13] MEDS: Chlorhexidine Gluconate 2% 1 Pack (2 Cloths) TOPICAL SCH (04:46)
[2018-10-13 06:00] LABS: Hematocrit 27.6 % (39.0-51.0); Hemoglobin 8.6 gm/dL (13.0-17.0); Mean Corpuscular HGB Conc 31.3 % (32.0-36.0); Mean Corpuscular Hemoglobin 30.3 pg (27.0-34.0); Mean Corpuscular Volume 96.9 fL (80.0-100.0); Mean Platelet Volume 8.7 fL (7.0-11.0); Platelet Count 99 th/mm3 (150-450); Red Blood Count 2.85 mil/mm3 (4.50-5.90); Red Cell Distribution Width 16.9 % (11.6-17.2); White Blood Count 1.5 th/mm3 (4.0-11.0)
[2018-10-13 06:37] LABS: Alanine Aminotransferase 12 U/L (12-78); Albumin 2.8 g/dL (3.4-5.0); Alkaline Phosphatase 63 U/L (45-117); Anion Gap 4 meq/L (5-15); Aspartate Aminotransferase 13 U/L (15-37); Blood Urea Nitrogen 16 mg/dL (7-18); Calcium 7.5 mg/dL (8.5-10.1); Carbon Dioxide 28.6 meq/L (21.0-32.0); Chloride 107 meq/L (98-107); Glomerular Filtration Rate Greater Than 89 mL/min (>89); Glucose,Random 78 mg/dL (74-106); Magnesium 1.8 mg/dL (1.5-2.5); Phosphorus 2.8 mg/dL (2.5-4.9); Sodium 140 meq/L (136-145); Total Protein 6.3 g/dL (6.4-8.2)
[2018-10-13 06:53] LABS: Activated Partial Thrombo Time 37.1 sec (23.4-31.7); INR 1.1 Ratio
[2018-10-13 07:01] LABS: D-Dimer 0.48 mg/L FEU (0.00-0.50)
[2018-10-13 08:12] LABS: Blast Cells 1 % (0-0); Eosinophils 5 % (0-4); Lymphocytes 36 % (9-44); Monocytes 34 % (0-8)
[2018-10-13 08:15] LABS: Platelet Morphology Normal (Normal)
[2018-10-13] MEDS: Senna/Docusate Sodium 8.6/50 MG Tablet PO SCH ×2 (08:37→20:24)
[2018-10-13] MEDS: Famotidine PF Inj 20 MG/2 ML Vial IV.PUSH SCH ×2 (08:38→20:25)
[2018-10-13] MEDS: Sod Chloride 0.9% Inj 1,000 ML IV.CONT SCH ×2 (11:12→20:26)
--- NOTE | 2018-10-13 13:29 | P.CONID ---
History of Present Illness Service: Infectious disease Consult date: 10/13/18 Requesting Physician: Juan Day Reason for Consult: Evaluation and management of fever in a patient with HIV AIDS Primary Care Provider: OSWALDO GOFF History of Present Illness: Mr. Beebe is a 43-year-old -[place] male with known history of HIV AIDS with last CD4 count less than 20. Patient reports that he has not been compliant with his medications due to side effects. He was not able to provide me the name of his HIV care provider. 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 Patient reports history of recurrent pneumonias for which he has been admitted or presented to the hospital at least 6 times in the last 1 year. He also reports history of EGD for difficulty swallowing and being diagnosed with Dara esophagitis. He reports that he stopped taking his Diflucan approximately 2 months back. He now presents with a history feeling ill since 4 -5 days prior to this admission. He reports cough, congestion, sore throat and fever. He reports subjective fevers but he has not recorded any temperatures at home. He reports having nausea followed by vomiting and having 3 episodes of vomiting even on the day of admission. He denies any diarrhea. He reports difficulty swallowing. He reports that he suffers from chronic constipation. His last BM was 2 days prior to admission. Patient reports chest pain in the center of his chest feeling of tightening sensation. He reports rhinorrhea as well as cough productive of yellowish sputum. He denies any hemoptysis. Endorses generalized weakness. During his past admission patient signed off AMA while being treated for Dara esophagitis. Infectious diseases consulted for evaluation and fever in a patient with HIV. Review of Systems All other systems reviewed negative except as stated in HPI PMFSH - History History Provided By: Patient - Medical History Medical History: Medical History (Last Reviewed 10/13/18 @ 08:01 by Braulio Stack) HIV (human immunodeficiency virus infection) Lymphoma - Surgical History Surgical History: Surgical History (Last Reviewed 10/13/18 @ 08:01 by Braulio Stack) Status post chemotherapy No history of previous surgery - Family History Family History: Family History (Last Reviewed 10/12/18 @ 19:46 by Marina Erazo MD) Other No pertinent family history - Tobacco History Second Hand Smoke Exposure: Yes Tobacco Use In Past 30 Days: No Smoking Status: Former smoker Tobacco Type: Cigarettes - Alcohol History How Often Do You Have a Drink Containing Alcohol: Monthly or less - Substance Use History Substance History: Active Abuse - Travel History Recent Travel in the [place] Within the Last 8 Weeks: No Recent Travel Out of the Country Within the Last 8 Weeks: No - Immunization History Tetanus Immunization: Unsure Hx Influenza Vaccine This Season: No Medications and Allergies Active Medications: Active Medications Acetaminophen (Tylenol) 650 mg PO Q6H PRN PRN Reason: PAIN 1-5 AND/OR FEVER >101F Hydrocodone Bitart/Acetaminophen (Star 7.5/325) 1 tab PO Q6H PRN PRN Reason: Pain 6-10 Al Hydroxide/Mg Hydroxide (Milk Of Magnjr Liq) 30 ml PO Q12H PRN PRN Reason: Mild Constipation Bisacodyl (Dulcolax Supp) 10 mg RECTAL DAILY PRN PRN Reason: SEVERE CONSITIPATION Chlorhexidine Gluconate (Chlorhexidine 2% Cloth) 3 pack TOPICAL DAILY@0400 [facility] Stop: 10/18/18 03:59 Last Admin: 10/13/18 04:46 Dose: 3 pack Chlorhexidine Gluconate (Chlorhexidine 2% Cloth) 3 pack TOPICAL DAILY@0400 PRN PRN Reason: Extra cloth needed Stop: 10/18/18 03:59 Enoxaparin Sodium (Lovenox Inj) 40 mg SQ Q24H [facility] Last Admin: 10/12/18 22:59 Dose: 40 mg Famotidine (Pepcid Pf Inj) 20 mg IV.PUSH Q12HR [facility] Last Admin: 10/13/18 08:38 Dose: 20 mg Sodium Chloride (Ns Inj) 1,000 mls @ 84 mls/hr IV.CONT .[id number] [facility] Last Admin: 10/13/18 11:12 Dose: 84 mls/hr Cefepime HCl 2,000 mg/ Sodium (Chloride) 100 mls @ 200 mls/hr IV.SIG Q8H [facility] Last Admin: 10/13/18 13:13 Dose: 200 mls/hr Vancomycin HCl 1,500 mg/ (Sodium Chloride) 515 mls @ 257.5 mls/hr IV.SIG Q12H [facility] Ipratropium [employer] (Atrovent Neb) 0.5 mg NEB Q2HR NEB PRN PRN Reason: WHEEZING Lactulose (Lactulose Liq) 30 ml PO DAILY PRN PRN Reason: SEVERE CONSITIPATION Miscellaneous Information ([facility] Ordered Lab Info) 0 each OTHER ONCE ONE Stop: 10/14/18 14:46 Ondansetron HCl (Zofran Inj) 4 mg IV.PUSH Q6H PRN PRN Reason: NAUSEA OR VOMITING Pharmacy Profile Note (Vancomycin Consult Pharmacy) 1 each OTHER UNSCH PRN PRN Reason: Pharmacy to dose Senna/Docusate Sodium ([place]-Colace) 1 tab PO BID [facility] Last Admin: 10/13/18 08:37 Dose: 1 tab Sennosides (Senokot) 17.2 mg PO Q12H PRN PRN Reason: Moderate Constipation Sodium Chloride (Ns Flush) 2 ml IV.FLUSH BID [facility] Last Admin: 10/13/18 08:38 Dose: 2 ml Sodium Chloride (Ns Flush) 2 ml IV.FLUSH PRN PRN PRN Reason: FLUSH AFTER USING IV ACCESS Temazepam (Restoril) 15 mg PO HS PRN PRN Reason: INSOMNIA Trimethoprim/Sulfamethoxazole (Bactrim Ds) 1 tab PO Q12HR [facility] Last Admin: 10/13/18 08:38 Dose: 1 tab Allergies Allergy/AdvReac Type Severity Reaction Status Date / Time albuterol Allergy Intermediate Hives Verified 03/15/18 16:58 azithromycin Allergy Hives Verified 07/08/18 19:59 Home Medications Medication Instructions Recorded Confirmed Type atovaquone [Mepron] 750 mg PO TID 07/10/18 10/12/18 History darunavir ethanolate [Prezista] 600 mg PO BID 07/10/18 10/12/18 History dolutegravir [Tivicay] 50 mg PO BID 07/10/18 10/12/18 History hydrocodone-acetaminophen 1 tab PO Q6H PRN 07/10/18 10/12/18 History lisinopril 5 mg PO DAILY 07/10/18 10/12/18 History ritonavir [Norvir] 100 mg PO BID 07/10/18 10/12/18 History tenofovir disoproxil fumarate 300 mg PO DAILY 07/10/18 10/12/18 History [Viread] Exam Vital signs: Vital Signs 10/12/18 17:18 10/12/18 19:25 10/12/18 22:00 Temperature 100.4 F H Pulse Rate 126 H 126 H 97 H Respiratory Rate 18 15 Blood Pressure 106/61 114/62 Pulse Oximetry 98 93 L 10/12/18 22:32 10/12/18 22:39 10/12/18 23:00 Temperature 98.5 F Pulse Rate 91 H 83 Respiratory Rate 23 21 Blood Pressure 124/75 125/80 Pulse Oximetry 100 94 L 94 L 10/13/18 00:00 10/13/18 01:00 10/13/18 02:00 Temperature 98.2 F Pulse Rate 83 83 76 Respiratory Rate 15 14 16 Blood Pressure 108/66 108/70 120/69 Pulse Oximetry 97 98 99 10/13/18 03:00 10/13/18 04:00 10/13/18 05:00 Temperature 98.8 F Pulse Rate 80 78 74 Respiratory Rate 21 14 12 Blood Pressure 115/75 103/70 118/78 Pulse Oximetry 100 100 100 10/13/18 06:00 10/13/18 06:04 10/13/18 07:00 Temperature Pulse Rate 80 86 84 Respiratory Rate 20 19 15 Blood Pressure 110/61 107/65 Pulse Oximetry 100 100 97 10/13/18 08:00 10/13/18 09:00 10/13/18 10:00 Temperature 98.6 F Pulse Rate 85 89 78 Respiratory Rate 15 12 15 Blood Pressure 105/65 115/64 115/70 Pulse Oximetry 99 100 100 10/13/18 10:16 10/13/18 10:18 10/13/18 10:20 Temperature Pulse Rate 87 98 H 96 H Respiratory Rate 13 24 22 Blood Pressure 106/68 110/65 110/78 Pulse Oximetry 100 100 100 10/13/18 11:00 10/13/18 11:41 10/13/18 12:00 Temperature Pulse Rate 74 74 78 Respiratory Rate 15 15 11 L Blood Pressure 112/67 114/71 Pulse Oximetry 99 99 100 10/13/18 13:00 Temperature Pulse Rate 74 Respiratory Rate 14 Blood Pressure 112/73 Pulse Oximetry 100 Intake & Output 10/12/18 10/13/18 10/13/18 18:59 06:59 18:59 Intake Total 2790 / 2790 1000 / 1000 Output Total 1350 / 1350 Balance 1440 / 1440 1000 / 1000 Weight 83.007 kg 87.6 kg Intake: IV 2550 / 2550 1000 / 1000 NS Inj 1,000 ML @ 84 mls/hr IV. 999 / 999 CONT .[id number] [facility] Rx#:[id number] Maxipime Inj 2,000 MG In NS Inj 200 / 200 100 ML @ 200 mls/hr IV.SIG Q8H [facility] Rx#:[id number] Levaquin 750 mg Premix Inj 150 100 / 100 ML @ 100 mls/hr IV.SIG STAT STA Rx#:[id number] NS Inj 1,000 ML @ Wide Open IV. 1999 SIG BOLUS ONE Rx#:[id number] Vancomycin Inj 1,000 MG In NS 250 / 250 Inj 250 ML @ 250 mls/hr IV.SIG Q1H [facility] Rx#:[id number] Oral 240 / 240 Output: Urine 1350 / 1350 Other: # Voids 3 Date of Last Bowel Movement 10/06/18 10/06/18 Narrative: GENERAL: Well-nourished well-developed, not in acute distress SKIN: Cool and dry, no generalized rash HEAD: Atraumatic. Normocephalic. No temporal or scalp tenderness. EYES: Pupils equal round and reactive. Scleral icterus. No injection or drainage. No petechia ENT: Nothing abnormal detected NECK: Trachea midline. Supple, nontender, no meningeal signs. CARDIOVASCULAR: HS audible. RESPIRATORY: Clear to auscultation bilaterally. GASTROINTESTINAL: Abdomen soft nontender. MUSCULOSKELETAL: Extremities without clubbing, cyanosis. NEUROLOGICAL: Alert oriented 3. Nonfocal. Ommaya reservoir no evidence of infection. Psych cooperative IV line sites ok. Results - Labs CBC & Chem 7: 10/13/18 05:44 10/13/18 05:44 Labs: Laboratory Results - last 24 hr 10/12/18 10/12/18 10/12/18 19:10 19:10 19:10 WBC 1.7 L RBC 3.23 L Hgb 9.8 L Hct 30.0 L MCV 92.9 MCH 30.3 MCHC 32.7 RDW 16.9 Plt Count 118 L MPV 9.5 Prelim Diff (Auto) Manual diff required Neut % (Auto) Package Delivery Room Service Runner Lymph % (Auto) Package Delivery Room Service Runner [place] % (Auto) Package Delivery Room Service Runner Eos % (Auto) Package Delivery Room Service Runner Baso % (Auto) Package Delivery Room Service Runner Neut # (Auto) Package Delivery Room Service Runner Lymph # (Auto) Package Delivery Room Service Runner [place] # (Auto) Package Delivery Room Service Runner Eos # (Auto) Package Delivery Room Service Runner Baso # (Auto) Package Delivery Room Service Runner WBC Differential Manual diff final Seg Neuts % (Manual) 16 Band Neuts % (Manual) 10 H Lymphocytes % (Manual) 26 Atypical Lymphs % (Man) 12 H Monocytes % (Manual) 24 H Eosinophils % (Manual) 4 Metamyelocytes % (Man) 4 H Blast Cells % (Manual) 4 H Abs Neuts (Manual) 0.5 L* Nucleated RBCs/100 WBC 4 H Differential Comment . Toxic Vacuolation Present H Platelet Estimate Low L Platelet Morphology Enlarged H Tear Drop Cells 1+ H Ovalocytes 1+ H PT INR APTT D-Dimer Quant (PE/DVT) Sodium 136 Potassium 4.0 Chloride 100 Carbon Dioxide 28.2 Anion Gap 8 BUN 17 Creatinine 1.14 Estimated GFR 86 L Random Glucose 87 Lactic Acid Calcium 8.5 Phosphorus Magnesium Total Bilirubin 0.4 AST 14 L ALT 13 Alkaline Phosphatase 75 Total Creatine Kinase CK-MB (CK-2) Troponin I Less than 0.02 L B-Natriuretic Peptide 3 Total Protein 7.5 Albumin 3.3 L Lipase 60 L Urine Color Urine Clarity Urine pH Ur Specific [place] Urine Protein Urine Glucose (UA) Urine Ketones Urine Occult Blood Urine Nitrate Urine Bilirubin Urine Urobilinogen Ur Leukocyte Esterase Urine RBC Urine WBC Urine Mucus Micro UA Comment Ur Microscopic Review Urine Culture Comments Nasal Screen MRSA (PCR) 10/12/18 10/12/18 10/12/18 19:10 19:10 19:15 WBC RBC Hgb Hct MCV MCH MCHC RDW Plt Count MPV Prelim Diff (Auto) Neut % (Auto) Lymph % (Auto) [place] % (Auto) Eos % (Auto) Baso % (Auto) Neut # (Auto) Lymph # (Auto) [place] # (Auto) Eos # (Auto) Baso # (Auto) WBC Differential Seg Neuts % (Manual) Band Neuts % (Manual) Lymphocytes % (Manual) Atypical Lymphs % (Man) Monocytes % (Manual) Eosinophils % (Manual) Metamyelocytes % (Man) Blast Cells % (Manual) Abs Neuts (Manual) Nucleated RBCs/100 WBC Differential Comment Toxic Vacuolation Platelet Estimate Platelet Morphology Tear Drop Cells Ovalocytes PT 10.9 INR 1.1 APTT 34.5 H D-Dimer Quant (PE/DVT) Sodium Potassium Chloride Carbon Dioxide Anion Gap BUN Creatinine Estimated GFR Random Glucose Lactic Acid 0.7 Calcium Phosphorus Magnesium 1.7 Total Bilirubin AST ALT Alkaline Phosphatase Total Creatine Kinase 123 CK-MB (CK-2) Less than 1.0 Troponin I B-Natriuretic Peptide Total Protein Albumin Lipase Urine Color Urine Clarity Urine pH Ur Specific [place] Urine Protein Urine Glucose (UA) Urine Ketones Urine Occult Blood Urine Nitrate Urine Bilirubin Urine Urobilinogen Ur Leukocyte Esterase Urine RBC Urine WBC Urine Mucus Micro UA Comment Ur Microscopic Review Urine Culture Comments Nasal Screen MRSA (PCR) 10/12/18 10/13/18 10/13/18 23:15 00:30 05:44 WBC 1.5 L RBC 2.85 L Hgb 8.6 L Hct 27.6 L MCV 96.9 D MCH 30.3 MCHC 31.3 L RDW 16.9 Plt Count 99 L MPV 8.7 Prelim Diff (Auto) Manual diff required Neut % (Auto) Lymph % (Auto) [place] % (Auto) Eos % (Auto) Baso % (Auto) Neut # (Auto) Lymph # (Auto) [place] # (Auto) Eos # (Auto) Baso # (Auto) WBC Differential Manual diff final Seg Neuts % (Manual) 11 L Band Neuts % (Manual) 13 H Lymphocytes % (Manual) 36 Atypical Lymphs % (Man) Monocytes % (Manual) 34 H Eosinophils % (Manual) 5 H Metamyelocytes % (Man) Blast Cells % (Manual) 1 H Abs Neuts (Manual) 0.4 L* Nucleated RBCs/100 WBC Differential Comment . Toxic Vacuolation Platelet Estimate Low L Platelet Morphology Normal Tear Drop Cells Ovalocytes PT INR APTT D-Dimer Quant (PE/DVT) Sodium Potassium Chloride Carbon Dioxide Anion Gap BUN Creatinine Estimated GFR Random Glucose Lactic Acid Calcium Phosphorus Magnesium Total Bilirubin AST ALT Alkaline Phosphatase Total Creatine Kinase CK-MB (CK-2) Troponin I B-Natriuretic Peptide Total Protein Albumin Lipase Urine Color Yellow Urine Clarity Clear Urine pH 6.0 Ur Specific [place] 1.014 Urine Protein 100 H Urine Glucose (UA) Negative Urine Ketones Negative Urine Occult Blood Negative Urine Nitrate Negative Urine Bilirubin Negative Urine Urobilinogen Less than 2 Ur Leukocyte Esterase Negative Urine RBC Less than 1 Urine WBC Less than 1 Urine Mucus Few H Micro UA Comment Culture not ind Ur Microscopic Review Not Reportable Urine Culture Comments Culture not ind Nasal Screen MRSA (PCR) Not detected 10/13/18 10/13/18 10/13/18 05:44 05:44 05:44 WBC RBC Hgb Hct MCV MCH MCHC RDW Plt Count MPV Prelim Diff (Auto) Neut % (Auto) Lymph % (Auto) [place] % (Auto) Eos % (Auto) Baso % (Auto) Neut # (Auto) Lymph # (Auto) [place] # (Auto) Eos # (Auto) Baso # (Auto) WBC Differential Seg Neuts % (Manual) Band Neuts % (Manual) Lymphocytes % (Manual) Atypical Lymphs % (Man) Monocytes % (Manual) Eosinophils % (Manual) Metamyelocytes % (Man) Blast Cells % (Manual) Abs Neuts (Manual) Nucleated RBCs/100 WBC Differential Comment Toxic Vacuolation Platelet Estimate Platelet Morphology Tear Drop Cells Ovalocytes PT 11.0 INR 1.1 APTT 37.1 H D-Dimer Quant (PE/DVT) 0.48 Sodium 140 Potassium 4.0 Chloride 107 Carbon Dioxide 28.6 Anion Gap 4 L BUN 16 Creatinine 0.88 Estimated GFR Greater than 89 Random Glucose 78 Lactic Acid 0.4 Calcium 7.5 L D Phosphorus 2.8 Magnesium 1.8 Total Bilirubin 0.3 AST 13 L ALT 12 Alkaline Phosphatase 63 Total Creatine Kinase CK-MB (CK-2) Troponin I Less than 0.02 L B-Natriuretic Peptide Total Protein 6.3 L D Albumin 2.8 L Lipase Urine Color Urine Clarity Urine pH Ur Specific [place] Urine Protein Urine Glucose (UA) Urine Ketones Urine Occult Blood Urine Nitrate Urine Bilirubin Urine Urobilinogen Ur Leukocyte Esterase Urine RBC Urine WBC Urine Mucus Micro UA Comment Ur Microscopic Review Urine Culture Comments Nasal Screen MRSA (PCR) - Imaging Impressions Chest X-Ray 10/12/18 19:07 CONCLUSION: The lungs are clear. Head CT 10/12/18 20:07 CONCLUSION: 1. No acute intracranial abnormalities. Right frontal ventriculostomy. Partial opacification right ethmoid air cells. . Assessment and Plan - Plan HIV AIDS CD4 less than 20 history of shortness of breath, respiratory symptoms chest x-ray normal rule out PCP will get a CT chest. History of recurrent pneumonia Dysphagia: Likely due to Dara esophagitis. History of Dara esophagitis status post EGD History of azithromycin allergy with hives Recommendations Continue cefepime IV for now Continue vancomycin IV for now Start Bactrim for PCP prophylaxis CT chest with IV contrast stat ordered We will discuss with pharmacy to obtain right for Rifabutin as an alternative to start Bactrim for PCP prophylaxis. Discussed with pharmacist and and gave verbal order for Rifabutin (150 mg x 2 tabs) i.e. 300 mg p.o. daily as I did not have an option to enter the same. AFB blood culture Fungus blood culture Lymphocyte profile to check for CD4 Check cryptococcal antigen Check coccidiomycosis antibodies Check toxoplasmosis antibodies Check G6PD status in case Needed Check GC chlamydia PCR Check RPR Consult gastroenterology for dysphagia prior history of esophagitis. Patient reports this is being a major factor noncompliance. Follow cultures Follow clinical course Case discussed with Dr. Judd.
[2018-10-13 13:52] LABS: Blast Cells 0 % (0-0)
--- NOTE | 2018-10-13 14:27 | P.DIET ---
Nutritional Evaluation Type of nutrition evaluation: initial Nutrition screening: Weight Loss > 10 lbs Screening comments: 10/12/18 WLS Objective - Diagnosis neutropenic fever, sepsis - Objective Diet Order: Full Liquid Diet Oral Diet Intake Amount: Excellent 90%+ Objective Comments: PMH: HIV, lymphoma, chemotherapy for brain tumor LBM 10/06/18 (has chronic constipation) Assessment Assessment: Pt currently at nutritional risk r/t diagnosis and reported unplanned wt loss. Pt is consuming a full liquid diet now and ate around 100% this a.m. 10/13/18. Spoke w/ RN Loulou, per RN pt is doing well nutritionally and consuming his meal trays. RD will continue to monitor pts nutritional status and recommend a PO supplement as needed. Continue to monitor PO intake. Labs reviewed, dietitian following. Recommendations: 1. RD will continue to monitor pts nutritional status and recommend a PO supplement as needed 2. Continue to monitor PO intake 3. Dietitian following Dietitian to Monitor: Lab values, Intake & Output, Diet tolerance, Weight change , PO Intake, Medical course
[2018-10-13] MEDS: Vancomycin Inj 1,500 MG in Sodium Chlor 0.9% Inj 500 ML IV.SIG SCH (14:30)
--- NOTE | 2018-10-13 17:15 | CT ---
EXAM DATE: 10/13/2018 5:04 PM EST AGE/SEX: 43 years / Male INDICATIONS: Pneumonia CLINICAL DATA: This is the patient's initial encounter. Patient reports that signs and symptoms have been present for 1 day and indicates a pain score of 0/10. MEDICAL/SURGICAL HISTORY: HIV. Lymphoma. None. RADIATION DOSE: 10.5 CTDI (mGy) COMPARISON: [facility] [place], CT THORAX W CONTRAST, 10/16/2017. [facility] [place], CHEST 1V SINGLE AP, 10/12/2018. . TECHNIQUE: Multiple contiguous axial images were obtained through the chest during bolus infusion of 83 ml Omnipaque 350 (iohexol) nonionic water-soluble contrast as a single exam dose. Images were obtained in suspended respiration using multiple row detector helical technique. Using automated exp osure control and adjustment of the mA and/or kV according to patient size, radiation dose was kept a s low as reasonably achievable to obtain optimal diagnostic quality images. DICOM format image data is available electronically for review and comparison. FINDINGS: Lungs: There is patchy airspace consolidation and tree-in-bud opacity in both lower lobes, right gre ater than left. Nodular airspace opacities are present in the right upper lobe with the largest measu ring 9 mm. In the left upper lobe there is a 6 mm nodule on image 14. No pneumothorax is present. Mediastinum: The heart and great vessels demonstrate no acute abnormality. No lymphadenopathy is id entified. Pleurae: No pleural effusion or pleural thickening. Axillae: No lymphadenopathy. Musculoskeletal: The bones and soft tissues demonstrate no acute abnormality. Other: The visualized upper abdominal structures demonstrate no acute abnormality. CONCLUSION: 1. Mild patchy airspace consolidation in both lower lobes, right greater than left. The imaging feat ures are characteristic of an infectious or inflammatory process. 2. There are multiple nodular airspace opacities bilaterally measuring up to 9 mm that likely repres ent the acute infectious or inflammatory process. These are new compared to the prior study from one year ago. Recommend follow-up chest CT after appropriate therapy to confirm resolution of these nodul es. Electronically signed by: Jose Mathur MD Board Certified Radiologist 10/13/2018 5:13 PM EST
[2018-10-13] MEDS ORDERED: Nystatin/Diphenhydramine/Lidocaine Mouthwash (Adult) 120 ML Botttle SWISH-SWAL SCH (18:00)
[2018-10-13] MEDS ORDERED: RIFABUTIN PO SCH (18:00)
[2018-10-13 18:07] LABS: Hepatitis A IgM Antibody Nonreactive (Nonreactive); Hepatitits B Surface Antigen Nonreactive (Nonreactive)
--- NOTE | 2018-10-13 18:27 | ECG ---
Date Performed: 10/12/2018 Time Performed: 19:06:07 PTAGE: 43 years EKG: SINUS TACHYCARDIA ABNORMAL RHYTHM ECG PREVIOUS TRACING : 07/09/2018 12.18 DOCTOR: Ruperto Gonzalez Interpretating Date/Time 10/13/2018 18:24:39
--- NOTE | 2018-10-13 19:37 | P.PNCC ---
Subjective Subjective Remarks/Hospital Course: 43 year old male presents to the [facility] emergency department with a history of feeling ill since or Thursday of this past week. The patient reports that he had cough, congestion, sore throat, and fever. He is unsure how high his fever has been at home. He reports having associated nausea and then vomiting that began the day he reports having 3 episodes of vomiting this morning. He denies having any diarrhea. He reports that he suffers from chronic constipation. The patient reports that his last bowel movement was Thursday or Thursday of this past week. 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 The patient's last CD4 count was less than 50. He is unsure what his viral load was. The patient is not followed by infectious disease currently. He reports that he has not been taking his HIV medications. The patient reports that today he has been having chest pain in the center of his chest, upper aspect that he describes as a tightening sensation. He reports having a headache over the right frontal sinus. He reports having a clear rhinorrhea. His cough is productive of yellow sputum. He denies having any hemoptysis. On review of systems otherwise , the patient denies having any neck pain or stiffness, abdominal pain, urinary symptoms, or focal neurologic symptoms. The patient reports having shortness of breath with exertion. The patient reports having generalized weakness. Subjective: 10/13 Normotensive and on RA. States he has been coughing. No longer nauseated, ate some chicken strips. Objective Vital Signs / I&O: Vital Signs 10/12/18 22:00 10/12/18 22:32 10/12/18 22:39 Temperature 98.5 F Pulse Rate 97 H 91 H Respiratory Rate 15 23 Blood Pressure 114/62 124/75 Pulse Oximetry 100 94 L 10/12/18 23:00 10/13/18 00:00 10/13/18 01:00 Temperature 98.2 F Pulse Rate 83 83 83 Respiratory Rate 21 15 14 Blood Pressure 125/80 108/66 108/70 Pulse Oximetry 94 L 97 98 10/13/18 02:00 10/13/18 03:00 10/13/18 04:00 Temperature 98.8 F Pulse Rate 76 80 78 Respiratory Rate 16 21 14 Blood Pressure 120/69 115/75 103/70 Pulse Oximetry 99 100 100 10/13/18 05:00 10/13/18 06:00 10/13/18 06:04 Temperature Pulse Rate 74 80 86 Respiratory Rate 12 20 19 Blood Pressure 118/78 110/61 Pulse Oximetry 100 100 100 10/13/18 07:00 10/13/18 08:00 10/13/18 09:00 Temperature 98.6 F Pulse Rate 84 85 89 Respiratory Rate 15 15 12 Blood Pressure 107/65 105/65 115/64 Pulse Oximetry 97 99 100 10/13/18 10:00 10/13/18 10:16 10/13/18 10:18 Temperature Pulse Rate 78 87 98 H Respiratory Rate 15 13 24 Blood Pressure 115/70 106/68 110/65 Pulse Oximetry 100 100 100 10/13/18 10:20 10/13/18 11:00 10/13/18 11:41 Temperature Pulse Rate 96 H 74 74 Respiratory Rate 22 15 15 Blood Pressure 110/78 112/67 Pulse Oximetry 100 99 99 10/13/18 12:00 10/13/18 13:00 10/13/18 14:00 Temperature Pulse Rate 78 74 76 Respiratory Rate 11 L 14 18 Blood Pressure 114/71 112/73 122/72 Pulse Oximetry 100 100 100 10/13/18 15:00 10/13/18 16:00 10/13/18 17:16 Temperature Pulse Rate 79 85 83 Respiratory Rate 18 16 15 Blood Pressure 120/74 112/68 114/75 Pulse Oximetry 100 100 100 10/13/18 18:00 10/13/18 19:00 Temperature Pulse Rate 80 84 Respiratory Rate 11 L 20 Blood Pressure 121/66 111/72 Pulse Oximetry 100 100 Intake & Output 10/13/18 10/13/18 10/14/18 06:59 18:59 06:59 Intake Total 2790 / 2790 2500 / 2500 Output Total 1350 / 1350 1150 / 1150 Balance 1440 / 1440 1350 / 1350 Weight 87.6 kg Intake: IV 2550 / 2550 1615 / 1615 NS Inj 1,000 ML @ 84 mls/hr IV. 1000 / 1000 CONT .[id number] MENDOZA Rx#:[id number] Maxipime Inj 2,000 MG In NS Inj 200 / 200 100 / 100 100 ML @ 200 mls/hr IV.SIG Q8H MENDOZA Rx#:[id number] Levaquin 750 mg Premix Inj 150 100 / 100 ML @ 100 mls/hr IV.SIG STAT STA Rx#:[id number] NS Inj 1,000 ML @ Wide Open IV. 1999 SIG BOLUS ONE Rx#:[id number] Vancomycin Inj 1,000 MG In NS 250 / 250 Inj 250 ML @ 250 mls/hr IV.SIG Q1H MENDOZA Rx#:[id number] Vancomycin Inj 1,500 MG In NS 515 / 515 Inj 500 ML @ 257.5 mls/hr IV. SIG Q12H MENDOZA Rx#:[id number] Oral 240 / 240 885 / 885 Output: Urine 1350 / 1350 1150 / 1150 Stool 0 / 0 Other: # Voids 3 3 Date of Last Bowel Movement 10/06/18 10/06/18 Result Diagrams: 10/13/18 05:44 10/13/18 05:44 Objective Remarks: GENERAL: Well-nourished, well-developed pleasant male who is sitting up in bed. He is on room air and is breathing comfortably. SKIN: Warm and dry. HEAD: Atraumatic. Normocephalic. EYES: Pupils equal and round. ENT: No nasal bleeding or discharge. Mucous membranes pink and moist. NECK: Trachea midline. No JVD. No meningismus. CARDIOVASCULAR: Regular rate and rhythm. No murmurs rubs or gallops. RESPIRATORY: Appears to be breathing comfortably with no accessory muscle use. Clear to auscultation. Breath sounds equal bilaterally. GASTROINTESTINAL: Abdomen soft, non-tender, nondistended. Bowel sounds present. MUSCULOSKELETAL: Extremities without clubbing, cyanosis, or edema. No obvious deformities. NEUROLOGICAL: Awake and alert. No obvious cranial nerve deficits. Motor grossly within normal limits. Moves all extremities with no focal deficit. Ommaya reservoir in place. Assessment and Plan - Problem List (1) Fever and neutropenia Code(s): D70.9 - Neutropenia, unspecified; R50.81 - Fever presenting with conditions classified elsewhere Status: Acute (2) Dara esophagitis Code(s): B37.81 - Candidal esophagitis Status: Acute (3) PNA (pneumonia) Code(s): J18.9 - Pneumonia, unspecified organism Status: Acute (4) HIV (human immunodeficiency virus infection) Code(s): B20 - Human immunodeficiency virus [HIV] disease Status: Chronic - Assessment and Plan Plan: HIV AIDS CD4 less than 20 history of shortness of breath, respiratory symptoms chest x-ray normal rule out PCP will get a CT chest. History of recurrent pneumonia Dysphagia HIV with CD4 count <20 Febrile neutropenia Pneumonia -Broad-spectrum antibiotics (Vanc/Cefepime) -Follow-up on cultures -KVO IV fluids -Infectious disease following and initiated Abx prophylactic therapy Dysphagia Likely dara esophagitis. ID has consulted GI. Diflucan IV. Chest pain ?secondary to pneumonia vs esophagitis -EKG within normal limits -Serial troponin is negative -D dimer negative Acute kidney injury -Dehydration -Resolved. D/c IVF. -Avoid nephrotoxic Thrombocytopenia -Due to above -Monitor trend DVT GI prophylaxis -Teds SCDs -Subcu Lovenox -Regular diet Discussed with Dr. Aguilar Davies. Transfer to floor. Hospitalist consult. Level 2 followup.
[2018-10-13] MEDS: RIFABUTIN 150 MG PO SCH (20:24)
[2018-10-13] MEDS: Enoxaparin Inj 40 MG/0.4 ML Syringe SQ SCH (20:24)
[2018-10-13 21:10] LABS: Hematocrit 25.2 % (39.0-51.0); Hemoglobin 7.9 gm/dL (13.0-17.0); Mean Corpuscular HGB Conc 31.4 % (32.0-36.0); Mean Corpuscular Hemoglobin 30.3 pg (27.0-34.0); Mean Corpuscular Volume 96.3 fL (80.0-100.0); Mean Platelet Volume 8.8 fL (7.0-11.0); Platelet Count 98 th/mm3 (150-450); Red Blood Count 2.61 mil/mm3 (4.50-5.90); Red Cell Distribution Width 17.1 % (11.6-17.2); White Blood Count 1.2 th/mm3 (4.0-11.0)
[2018-10-13 21:42] LABS: Anion Gap 5 meq/L (5-15); Blood Urea Nitrogen 11 mg/dL (7-18); Calcium 7.5 mg/dL (8.5-10.1); Carbon Dioxide 24.7 meq/L (21.0-32.0); Chloride 109 meq/L (98-107); Glomerular Filtration Rate Greater Than 89 mL/min (>89); Glucose,Random 126 mg/dL (74-106); Potassium 3.9 meq/L (3.5-5.1); Sodium 139 meq/L (136-145)
[2018-10-13 22:14] LABS: Blast Cells 1 % (0-0); Eosinophils 33 % (0-4); Lymphocytes 17 % (9-44); Metamyelocytes 1 % (0-1); Monocytes 30 % (0-8)
[2018-10-13 22:19] LABS: Platelet Morphology Normal (Normal)
[2018-10-13 22:23] LABS: Ovalocytes 1+
[2018-10-13] MEDS: Clotrimazole 10 MG Troche BUCCAL SCH (22:32)
[2018-10-14] MEDS: Vancomycin Inj 1,500 MG in Sodium Chlor 0.9% Inj 500 ML IV.SIG SCH ×2 (02:13→17:42)
[2018-10-14] MEDS: Chlorhexidine Gluconate 2% 1 Pack (2 Cloths) TOPICAL SCH (04:27)
[2018-10-14] MEDS: Clotrimazole 10 MG Troche BUCCAL SCH ×5 (05:20→22:00)
[2018-10-14] MEDS ORDERED: Azithromycin 250 MG Tablet PO SCH (09:00)
[2018-10-14 09:33] LABS: RPR Screen For Reflex FTA Nonreactive (Nonreactive)
[2018-10-14] MEDS: Senna/Docusate Sodium 8.6/50 MG Tablet PO SCH ×2 (09:40→19:59)
[2018-10-14] MEDS: Famotidine PF Inj 20 MG/2 ML Vial IV.PUSH SCH (09:41)
[2018-10-14] MEDS: Sod Chloride 0.9% Inj 1,000 ML IV.CONT SCH (09:41)
--- NOTE | 2018-10-14 10:15 | P.CONGI ---
History of Present Illness Consult date: 10/14/18 Consult reason: Dysphagia with midsternal chest pain History of esophagitis Chief complaint: Neutropenic Fever, Sepsis History of Present Illness: Patient is a 43-year-old male with past medical history significant for lymphoma and HIV infection that has progressed to AIDS. Patient presented to [facility] emergency department with a report of generalized weakness with body aches and subjective fever for the last 5-6 days. Patient also endorsed at that time that he had cough, congestion and sore throat. Upon consultation, patient endorses that he has had nausea and vomiting, 3 episodes on the morning of his admission. Patient denies diarrhea. Of note, patient states that last EGD was done in September 2017 and revealed a esophagitis as well as Dara infection. Patient states he was treated with Magic mouthwash and did not follow-up. States he does not presently have an infectious disease doctor in the community. Patient describes discomfort in the epigastric region that radiates up into his midsternal area as a "gas type pressure". Patient also endorses pain with swallowing denies difficulty swallowing, denies choking or coughing. Patient describes odynophagia as a sharp stabbing pain with swallowing solids onset 2 years ago. States he has been unable to take his prescribed HIV medications due to the consistent epigastric pain. Patient states he is a former smoker of 1 pack of cigarettes per day, stopped 2 months ago. Patient denies use of alcohol products. Patient denies any family history of gastrointestinal disorders. Patient does endorse chronic constipation for which he takes increased fiber and stool softeners [id number]. Denies any hematochezia or melena stools. Our service has been consulted to evaluate patient for dysphagia in light of history of esophagitis and Dara infection. <Lissett Pal - Last Filed: 10/14/18 10:15> Review of Systems All other systems reviewed negative except as stated in HPI <Lissett Pal - Last Filed: 10/14/18 10:15> PMFSH - History History Provided By: Patient - Medical History Medical History: Medical History (Last Reviewed 10/13/18 @ 08:01 by Braulio Stack) HIV (human immunodeficiency virus infection) Lymphoma - Surgical History Surgical History: Surgical History (Last Reviewed 10/13/18 @ 08:01 by Braulio Stack) Status post chemotherapy No history of previous surgery - Family History Family History: Family History (Last Reviewed 10/12/18 @ 19:46 by Marina Erazo MD) Other No pertinent family history - Tobacco History Second Hand Smoke Exposure: Yes Tobacco Use In Past 30 Days: No Smoking Status: Former smoker Tobacco Type: Cigarettes - Alcohol History How Often Do You Have a Drink Containing Alcohol: Monthly or less - Substance Use History Substance History: Active Abuse - Travel History Recent Travel in the [place] Within the Last 8 Weeks: No Recent Travel Out of the Country Within the Last 8 Weeks: No - Immunization History Tetanus Immunization: Unsure Hx Influenza Vaccine This Season: No <Lissett Pal - Last Filed: 10/14/18 10:15> - Medical History Medical History: Medical History (Last Reviewed 10/13/18 @ 08:01 by Braulio Stack) HIV (human immunodeficiency virus infection) Lymphoma - Surgical History Surgical History: Surgical History (Last Reviewed 10/13/18 @ 08:01 by Braulio Stack) Status post chemotherapy No history of previous surgery - Family History Family History: Family History (Last Reviewed 10/12/18 @ 19:46 by Marina Erazo MD) Other No pertinent family history <Ivan Mcrae - Last Filed: 10/14/18 13:46> Medications and Allergies Active Medications: Active Medications Acetaminophen (Tylenol) 650 mg PO Q6H PRN PRN Reason: PAIN 1-5 AND/OR FEVER >101F Hydrocodone Bitart/Acetaminophen ([place] 7.5/325) 1 tab PO Q6H PRN PRN Reason: Pain 6-10 Last Admin: 10/13/18 20:25 Dose: 1 tab Al Hydroxide/Mg Hydroxide (Milk Of Magnjr Liq) 30 ml PO Q12H PRN PRN Reason: Mild Constipation Bisacodyl (Dulcolax Supp) 10 mg RECTAL DAILY PRN PRN Reason: SEVERE CONSITIPATION Chlorhexidine Gluconate (Chlorhexidine 2% Cloth) 3 pack TOPICAL DAILY@0400 [facility] Stop: 10/18/18 03:59 Last Admin: 10/14/18 04:27 Dose: Not Given Chlorhexidine Gluconate (Chlorhexidine 2% Cloth) 3 pack TOPICAL DAILY@0400 PRN PRN Reason: Extra cloth needed Stop: 10/18/18 03:59 Clotrimazole (Mycelex Marisela) 10 mg BUCCAL 5 TIMES A DAY [facility] Stop: 10/27/18 18:01 Last Admin: 10/14/18 09:40 Dose: Not Given Enoxaparin Sodium (Lovenox Inj) 40 mg SQ Q24H [facility] Last Admin: 10/13/18 20:24 Dose: 40 mg Famotidine (Pepcid Pf Inj) 20 mg IV.PUSH Q12HR [facility] Last Admin: 10/14/18 09:41 Dose: 20 mg Sodium Chloride (Ns Inj) 1,000 mls @ 84 mls/hr IV.CONT .[id number] [facility] Last Admin: 10/14/18 09:41 Dose: 84 mls/hr Cefepime HCl 2,000 mg/ Sodium (Chloride) 100 mls @ 200 mls/hr IV.SIG Q8H [facility] Last Infusion: 10/14/18 06:08 Dose: Infused Vancomycin HCl 1,500 mg/ (Sodium Chloride) 515 mls @ 257.5 mls/hr IV.SIG Q12H [facility] Last Infusion: 10/14/18 04:26 Dose: Infused Fluconazole (Diflucan 200 Mg Premix Bag) 100 mls @ 100 mls/hr IV.SIG Q24H [facility] Last Infusion: 10/13/18 23:31 Dose: Infused Ipratropium [place] (Atrovent Neb) 0.5 mg NEB Q2HR NEB PRN PRN Reason: WHEEZING Lactulose (Lactulose Liq) 30 ml PO DAILY PRN PRN Reason: SEVERE CONSITIPATION Miscellaneous Information ([facility] [place] [facility] Ordered Lab Info) 0 each OTHER ONCE ONE Stop: 10/14/18 14:46 Non-Formulary Drug - Rifabutin 150 Mg Capsule 2 each PO DAILY [facility] Last Admin: 10/13/18 20:24 Dose: 2 each Ondansetron HCl (Zofran Inj) 4 mg IV.PUSH Q6H PRN PRN Reason: NAUSEA OR VOMITING Pharmacy Profile Note (Vancomycin Consult Pharmacy) 1 each OTHER UNSCH PRN PRN Reason: Pharmacy to dose Senna/Docusate Sodium ([place]-Colace) 1 tab PO BID [facility] Last Admin: 10/14/18 09:40 Dose: Not Given Sennosides (Senokot) 17.2 mg PO Q12H PRN PRN Reason: Moderate Constipation Sodium Chloride (Ns Flush) 2 ml IV.FLUSH BID [facility] Last Admin: 10/14/18 09:41 Dose: 2 ml Sodium Chloride (Ns Flush) 2 ml IV.FLUSH PRN PRN PRN Reason: FLUSH AFTER USING IV ACCESS Temazepam (Restoril) 15 mg PO HS PRN PRN Reason: INSOMNIA Trimethoprim/Sulfamethoxazole (Bactrim Ds) 1 tab PO Q12HR [facility] Last Admin: 10/13/18 20:25 Dose: 1 tab <Lissett Pal - Last Filed: 10/14/18 10:15> Active Medications: Active Medications Acetaminophen (Tylenol) 650 mg PO Q6H PRN PRN Reason: PAIN 1-5 AND/OR FEVER >101F Hydrocodone Bitart/Acetaminophen ([place] 7.5/325) 1 tab PO Q6H PRN PRN Reason: Pain 6-10 Last Admin: 10/13/18 20:25 Dose: 1 tab Al Hydroxide/Mg Hydroxide (Milk Of Katiuska [place]) 30 ml PO Q12H PRN PRN Reason: Mild Constipation Bisacodyl (Dulcolax Supp) 10 mg RECTAL DAILY PRN PRN Reason: SEVERE CONSITIPATION Chlorhexidine Gluconate (Chlorhexidine 2% Cloth) 3 pack TOPICAL DAILY@0400 [facility] Stop: 10/18/18 03:59 Last Admin: 10/14/18 04:27 Dose: Not Given Chlorhexidine Gluconate (Chlorhexidine 2% Cloth) 3 pack TOPICAL DAILY@0400 PRN PRN Reason: Extra cloth needed Stop: 10/18/18 03:59 Clotrimazole (Mycelex Marisela) 10 mg BUCCAL 5 TIMES A DAY [facility] Stop: 10/27/18 18:01 Last Admin: 10/14/18 09:40 Dose: Not Given Enoxaparin Sodium (Lovenox Inj) 40 mg SQ Q24H [facility] Last Admin: 10/13/18 20:24 Dose: 40 mg Sodium Chloride (Ns Inj) 1,000 mls @ 84 mls/hr IV.CONT .[id number] [facility] Last Admin: 10/14/18 09:41 Dose: 84 mls/hr Cefepime HCl 2,000 mg/ Sodium (Chloride) 100 mls @ 200 mls/hr IV.SIG Q8H [facility] Last Infusion: 10/14/18 06:08 Dose: Infused Vancomycin HCl 1,500 mg/ (Sodium Chloride) 515 mls @ 257.5 mls/hr IV.SIG Q12H [facility] Last Infusion: 10/14/18 04:26 Dose: Infused Fluconazole (Diflucan 200 Mg Premix Bag) 100 mls @ 100 mls/hr IV.SIG Q24H [facility] Last Infusion: 10/13/18 23:31 Dose: Infused Ipratropium [place] (Atrovent Neb) 0.5 mg NEB Q2HR NEB PRN PRN Reason: WHEEZING Lactulose (Lactulose Liq) 30 ml PO DAILY PRN PRN Reason: SEVERE CONSITIPATION Miscellaneous Information ([facility] Ordered Lab Info) 0 each OTHER ONCE ONE Stop: 10/14/18 14:46 Non-Formulary Drug - Rifabutin 150 Mg Capsule 2 each PO DAILY [facility] Last Admin: 10/13/18 20:24 Dose: 2 each Ondansetron HCl (Zofran Inj) 4 mg IV.PUSH Q6H PRN PRN Reason: NAUSEA OR VOMITING Pantoprazole Sodium (Protonix Inj) 40 mg IV.PUSH Q12H [facility] Pharmacy Profile Note (Vancomycin Consult Pharmacy) 1 each OTHER UNSCH PRN PRN Reason: Pharmacy to dose Senna/Docusate Sodium ([place]-Colace) 1 tab PO BID [facility] Last Admin: 10/14/18 09:40 Dose: Not Given Sennosides (Senokot) 17.2 mg PO Q12H PRN PRN Reason: Moderate Constipation Sodium Chloride (Ns Flush) 2 ml IV.FLUSH BID [facility] Last Admin: 10/14/18 09:41 Dose: 2 ml Sodium Chloride (Ns Flush) 2 ml IV.FLUSH PRN PRN PRN Reason: FLUSH AFTER USING IV ACCESS Temazepam (Restoril) 15 mg PO HS PRN PRN Reason: INSOMNIA Trimethoprim/Sulfamethoxazole (Bactrim Ds) 1 tab PO Q12HR [facility] Last Admin: 10/13/18 20:25 Dose: 1 tab <Ivan Mcrae - Last Filed: 10/14/18 13:46> Allergies Allergy/AdvReac Type Severity Reaction Status Date / Time albuterol Allergy Intermediate Hives Verified 03/15/18 16:58 azithromycin Allergy Hives Verified 07/08/18 19:59 Home Medications Medication Instructions Recorded Confirmed Type atovaquone [Mepron] 750 mg PO TID 07/10/18 10/12/18 History darunavir ethanolate [Prezista] 600 mg PO BID 07/10/18 10/12/18 History dolutegravir [Tivicay] 50 mg PO BID 07/10/18 10/12/18 History hydrocodone-acetaminophen 1 tab PO Q6H PRN 07/10/18 10/12/18 History lisinopril 5 mg PO DAILY 07/10/18 10/12/18 History ritonavir [Norvir] 100 mg PO BID 07/10/18 10/12/18 History tenofovir disoproxil fumarate 300 mg PO DAILY 07/10/18 10/12/18 History [Viread] Exam Vital signs: Vital Signs 10/13/18 10:00 10/13/18 10:16 10/13/18 10:18 Temperature Pulse Rate 78 87 98 H Respiratory Rate 15 13 24 Blood Pressure 115/70 106/68 110/65 Pulse Oximetry 100 100 100 10/13/18 10:20 10/13/18 11:00 10/13/18 11:41 Temperature Pulse Rate 96 H 74 74 Respiratory Rate 22 15 15 Blood Pressure 110/78 112/67 Pulse Oximetry 100 99 99 10/13/18 12:00 10/13/18 13:00 10/13/18 14:00 Temperature Pulse Rate 78 74 76 Respiratory Rate 11 L 14 18 Blood Pressure 114/71 112/73 122/72 Pulse Oximetry 100 100 100 10/13/18 15:00 10/13/18 16:00 10/13/18 17:16 Temperature Pulse Rate 79 85 83 Respiratory Rate 18 16 15 Blood Pressure 120/74 112/68 114/75 Pulse Oximetry 100 100 100 10/13/18 18:00 10/13/18 19:00 10/13/18 19:23 Temperature Pulse Rate 80 84 Respiratory Rate 11 L 20 Blood Pressure 121/66 111/72 Pulse Oximetry 100 100 100 10/13/18 20:00 10/13/18 21:00 10/13/18 22:00 Temperature 100.1 F H 98.0 F Pulse Rate 83 84 86 Respiratory Rate 18 21 20 Blood Pressure 117/67 115/69 117/74 Pulse Oximetry 98 99 100 10/14/18 00:00 10/14/18 04:00 10/14/18 07:40 Temperature 98.0 F 97.7 F 97.7 F Pulse Rate 72 75 71 Respiratory Rate 20 20 20 Blood Pressure 110/59 L 105/60 101/59 L Pulse Oximetry 98 100 97 Intake & Output 10/13/18 10/14/18 10/14/18 18:59 06:59 18:59 Intake Total 2500 / 2500 2115 / 2115 1000 / 1000 Output Total 1150 / 1150 500 / 500 Balance 1350 / 1350 1615 / 1615 1000 / 1000 Weight 90.2 kg Intake: IV 1615 / 1615 1815 / 1815 1000 / 1000 NS Inj 1,000 ML @ 84 mls/hr IV. 1000 / 1000 1000 / 1000 1000 / 1000 CONT .[id number] [facility] Rx#:[id number] Maxipime Inj 2,000 MG In NS Inj 100 / 100 200 / 200 100 ML @ 200 mls/hr IV.SIG Q8H [facility] Rx#:[id number] Diflucan 200 mg Premix Bag 100 100 / 100 ML @ 100 mls/hr IV.SIG Q24H [facility] Rx#:[id number] Vancomycin Inj 1,500 MG In NS 515 / 515 515 / 515 Inj 500 ML @ 257.5 mls/hr IV. SIG Q12H [facility] Rx#:[id number] Oral 885 / 885 300 / 300 Output: Urine 1150 / 1150 500 / 500 Stool 0 / 0 Other: # Voids 3 Date of Last Bowel Movement 10/06/18 10/09/18 - Constitutional no acute distress, thin, chronically ill appearing - Routine HEENT Exam Head: Present: normocephalic - Routine Respiratory Exam Present: CTA bilaterally. Absent: accessory muscle use, respiratory distress - Routine Cardiovascular Exam Present: RRR, S1, S2 - Routine Abdominal Exam Present: soft, normoactive bowel sounds. Absent: tenderness, distended, guarding, firm - Routine Extremities Exam Present: pulses intact. Absent: edema - Routine Skin Exam Present: dry, warm - Routine Neurological Exam Present: alert, oriented X3 <Pal,Lissett - Last Filed: 10/14/18 10:15> Vital signs: Vital Signs 10/13/18 14:00 10/13/18 15:00 10/13/18 16:00 Temperature Pulse Rate 76 79 85 Respiratory Rate 18 18 16 Blood Pressure 122/72 120/74 112/68 Pulse Oximetry 100 100 100 10/13/18 17:16 10/13/18 18:00 10/13/18 19:00 Temperature Pulse Rate 83 80 84 Respiratory Rate 15 11 L 20 Blood Pressure 114/75 121/66 111/72 Pulse Oximetry 100 100 100 10/13/18 19:23 10/13/18 20:00 10/13/18 21:00 Temperature 100.1 F H Pulse Rate 83 84 Respiratory Rate 18 21 Blood Pressure 117/67 115/69 Pulse Oximetry 100 98 99 10/13/18 22:00 10/14/18 00:00 10/14/18 04:00 Temperature 98.0 F 98.0 F 97.7 F Pulse Rate 86 72 75 Respiratory Rate 20 20 20 Blood Pressure 117/74 110/59 L 105/60 Pulse Oximetry 100 98 100 10/14/18 07:40 10/14/18 09:57 Temperature 97.7 F Pulse Rate 71 Respiratory Rate 20 Blood Pressure 101/59 L Pulse Oximetry 97 97 Intake & Output 10/13/18 10/14/18 10/14/18 18:59 06:59 18:59 Intake Total 2500 / 2500 2115 / 2115 1000 / 1000 Output Total 1150 / 1150 500 / 500 Balance 1350 / 1350 1615 / 1615 1000 / 1000 Weight 90.2 kg Intake: IV 1615 / 1615 1815 / 1815 1000 / 1000 NS Inj 1,000 ML @ 84 mls/hr IV. 1000 / 1000 1000 / 1000 1000 / 1000 CONT .[id number] [facility] Rx#:[id number] Maxipime Inj 2,000 MG In NS Inj 100 / 100 200 / 200 100 ML @ 200 mls/hr IV.SIG Q8H [facility] Rx#:[id number] Diflucan 200 mg Premix Bag 100 100 / 100 ML @ 100 mls/hr IV.SIG Q24H [facility] Rx#:[id number] Vancomycin Inj 1,500 MG In NS 515 / 515 515 / 515 Inj 500 ML @ 257.5 mls/hr IV. SIG Q12H [facility] Rx#:[id number] Oral 885 / 885 300 / 300 Output: Urine 1150 / 1150 500 / 500 Stool 0 / 0 Other: # Voids 3 Date of Last Bowel Movement 10/06/18 10/09/18 10/09/18 <Ivan Mcrae - Last Filed: 10/14/18 13:46> Results - Labs CBC & Chem 7: 10/13/18 20:59 10/13/18 20:59 Labs: Laboratory Results - last 24 hr 10/12/18 10/13/18 10/13/18 19:10 00:30 16:30 WBC RBC Hgb Hct MCV MCH MCHC RDW Plt Count MPV Prelim Diff (Auto) WBC Differential Seg Neuts % (Manual) Band Neuts % (Manual) Lymphocytes % (Manual) Monocytes % (Manual) Eosinophils % (Manual) Metamyelocytes % (Man) Blast Cells % (Manual) 0 Abs Neuts (Manual) 0.5 L* Differential Comment Platelet Estimate Platelet Morphology Ovalocytes Sodium Potassium Chloride Carbon Dioxide Anion Gap BUN Creatinine Estimated GFR Random Glucose Calcium RPR Chlam trachomat DNA PCR Not detected Hepatitis A IgM Ab Nonreactive Hep Bs Antigen Nonreactive Hep B Core IgM Ab Nonreactive Hep C IgG Ab Nonreactive N.gonorrhoeae DNA (PCR) Not detected 10/13/18 10/13/18 10/13/18 16:30 20:59 20:59 WBC 1.2 L RBC 2.61 L Hgb 7.9 L Hct 25.2 L MCV 96.3 MCH 30.3 MCHC 31.4 L RDW 17.1 Plt Count 98 L MPV 8.8 Prelim Diff (Auto) Manual diff required WBC Differential Manual diff final Seg Neuts % (Manual) 14 L Band Neuts % (Manual) 4 Lymphocytes % (Manual) 17 Monocytes % (Manual) 30 H Eosinophils % (Manual) 33 H Metamyelocytes % (Man) 1 Blast Cells % (Manual) 1 H Abs Neuts (Manual) 0.2 L* Differential Comment . Platelet Estimate Low L Platelet Morphology Normal Ovalocytes 1+ H Sodium 139 Potassium 3.9 Chloride 109 H Carbon Dioxide 24.7 Anion Gap 5 BUN 11 Creatinine 0.90 Estimated GFR Greater than 89 Random Glucose 126 H Calcium 7.5 L RPR Nonreactive Chlam trachomat DNA PCR Hepatitis A IgM Ab Hep Bs Antigen Hep B Core IgM Ab Hep C IgG Ab N.gonorrhoeae DNA (PCR) - Imaging Impressions Chest CT 10/13/18 16:02 CONCLUSION: 1. Mild patchy airspace consolidation in both lower lobes, right greater than left. The imaging features are characteristic of an infectious or inflammatory process. 2. There are multiple nodular airspace opacities bilaterally measuring up to 9 mm that likely represent the acute infectious or inflammatory process. These are new compared to the prior study from one year ago. Recommend follow-up chest CT after appropriate therapy to confirm resolution of these nodules. <PalLissett chu - Last Filed: 10/14/18 10:15> - Labs CBC & Chem 7: 10/13/18 20:59 10/14/18 11:52 Labs: Laboratory Results - last 24 hr 10/12/18 10/13/18 10/13/18 19:10 00:30 16:30 WBC RBC Hgb Hct MCV MCH MCHC RDW Plt Count MPV Prelim Diff (Auto) WBC Differential Seg Neuts % (Manual) Band Neuts % (Manual) Lymphocytes % (Manual) Monocytes % (Manual) Eosinophils % (Manual) Metamyelocytes % (Man) Blast Cells % (Manual) 0 Abs Neuts (Manual) Differential Comment Platelet Estimate Platelet Morphology Ovalocytes Sodium Potassium Chloride Carbon Dioxide Anion Gap BUN Creatinine Estimated GFR Random Glucose Calcium RPR Chlam trachomat DNA PCR Not detected Hepatitis A IgM Ab Nonreactive Hep Bs Antigen Nonreactive Hep B Core IgM Ab Nonreactive Hep C IgG Ab Nonreactive N.gonorrhoeae DNA (PCR) Not detected 10/13/18 10/13/18 10/13/18 16:30 20:59 20:59 WBC 1.2 L RBC 2.61 L Hgb 7.9 L Hct 25.2 L MCV 96.3 MCH 30.3 MCHC 31.4 L RDW 17.1 Plt Count 98 L MPV 8.8 Prelim Diff (Auto) Manual diff required WBC Differential Manual diff final Seg Neuts % (Manual) 14 L Band Neuts % (Manual) 4 Lymphocytes % (Manual) 17 Monocytes % (Manual) 30 H Eosinophils % (Manual) 33 H Metamyelocytes % (Man) 1 Blast Cells % (Manual) 1 H Abs Neuts (Manual) 0.2 L* Differential Comment . Platelet Estimate Low L Platelet Morphology Normal Ovalocytes 1+ H Sodium 139 Potassium 3.9 Chloride 109 H Carbon Dioxide 24.7 Anion Gap 5 BUN 11 Creatinine 0.90 Estimated GFR Greater than 89 Random Glucose 126 H Calcium 7.5 L RPR Nonreactive Chlam trachomat DNA PCR Hepatitis A IgM Ab Hep Bs Antigen Hep B Core IgM Ab Hep C IgG Ab N.gonorrhoeae DNA (PCR) 10/14/18 11:52 WBC RBC Hgb Hct MCV MCH MCHC RDW Plt Count MPV Prelim Diff (Auto) WBC Differential Seg Neuts % (Manual) Band Neuts % (Manual) Lymphocytes % (Manual) Monocytes % (Manual) Eosinophils % (Manual) Metamyelocytes % (Man) Blast Cells % (Manual) Abs Neuts (Manual) Differential Comment Platelet Estimate Platelet Morphology Ovalocytes Sodium Potassium Chloride Carbon Dioxide Anion Gap BUN Creatinine 0.78 Estimated GFR Greater than 89 Random Glucose Calcium RPR Chlam trachomat DNA PCR Hepatitis A IgM Ab Hep Bs Antigen Hep B Core IgM Ab Hep C IgG Ab N.gonorrhoeae DNA (PCR) - Imaging Impressions Chest CT 10/13/18 16:02 CONCLUSION: 1. Mild patchy airspace consolidation in both lower lobes, right greater than left. The imaging features are characteristic of an infectious or inflammatory process. 2. There are multiple nodular airspace opacities bilaterally measuring up to 9 mm that likely represent the acute infectious or inflammatory process. These are new compared to the prior study from one year ago. Recommend follow-up chest CT after appropriate therapy to confirm resolution of these nodules. <Ivan Mcrae - Last Filed: 10/14/18 13:46> Assessment and Plan (1) Dara esophagitis Status: Acute Code(s): B37.81 - Candidal esophagitis (2) HIV (human immunodeficiency virus infection) Status: Chronic Code(s): B20 - Human immunodeficiency virus [HIV] disease - Plan Patient is a 43-year-old male with past medical history significant for lymphoma and HIV infection that has progressed to AIDS. Patient presented to [facility] emergency department with a report of generalized weakness with body aches and subjective fever for the last 5-6 days. Patient also endorsed at that time that he had cough, congestion and sore throat. Upon consultation, patient endorses that he has had nausea and vomiting, 3 episodes on the morning of his admission. Patient denies diarrhea. Of note, patient states that last EGD was done in May 2017 and revealed a esophagitis as well as Dara infection. Patient states he was treated with Magic mouthwash and did not follow-up. States he does not presently have an infectious disease doctor in the community. Patient describes discomfort in the epigastric region that radiates up into his midsternal area as a "gas type pressure". Patient also endorses pain with swallowing denies difficulty swallowing, denies choking or coughing. Patient describes odynophagia as a sharp stabbing pain with swallowing solids onset 2 years ago. States he has been unable to take his prescribed HIV medications due to the consistent epigastric pain. Patient states he is a former smoker of 1 pack of cigarettes per day, stopped 2 months ago. Patient denies use of alcohol products. Patient denies any family history of gastrointestinal disorders. Patient does endorse chronic constipation for which he takes increased fiber and stool softeners [id number]. Denies any hematochezia or melena stools. Our service has been consulted to evaluate patient for dysphagia in light of history of esophagitis and Dara infection. Dysphagia History of esophagitis with Dara infection Patient endorses dysphagia onset 2 years ago. States sharp stabbing pain with ingestion of solid foods. May 22, 2017 EGD revealed the following: White exudates consistent with candidiasis in the entire esophagus, mild gastritis in the gastric antrum, retroflexed views revealed no abnormalities. 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 Plan -N.p.o. now-patient states he ate 2 strips of em with 1 cup of yogurt at 8 AM -Plan for procedure at 2 PM today -Obtain consent for EGD -Antiemetics and analgesics as per attending -Supportive care -Further recommendations to follow This patient has been seen by myself and Dr. Mcrae and this note is written on his behalf - Attending Attestation Dr. Mcrae <Lissett Pal - Last Filed: 10/14/18 10:15> (1) Dara esophagitis Status: Acute Code(s): B37.81 - Candidal esophagitis (2) HIV (human immunodeficiency virus infection) Status: Chronic Code(s): B20 - Human immunodeficiency virus [HIV] disease - Attending Attestation I have seen and examined the patient and reviewed the patients care with the [facility]. I agree with the above assessment and recommendations as documented above. <Ivan Mcrae - Last Filed: 10/14/18 13:46>
[2018-10-14 12:51] LABS: Glomerular Filtration Rate Greater Than 89 mL/min (>89)
--- NOTE | 2018-10-14 14:15 | P.PNIM ---
Subjective Interval history: No overnight events, no fever, still with chest pain, dysphagia. Shortness of breath better. Physical Exam Vital signs: Vital Signs 10/13/18 15:00 10/13/18 16:00 10/13/18 17:16 Temperature Pulse Rate 79 85 83 Respiratory Rate 18 16 15 Blood Pressure 120/74 112/68 114/75 Pulse Oximetry 100 100 100 10/13/18 18:00 10/13/18 19:00 10/13/18 19:23 Temperature Pulse Rate 80 84 Respiratory Rate 11 L 20 Blood Pressure 121/66 111/72 Pulse Oximetry 100 100 100 10/13/18 20:00 10/13/18 21:00 10/13/18 22:00 Temperature 100.1 F H 98.0 F Pulse Rate 83 84 86 Respiratory Rate 18 21 20 Blood Pressure 117/67 115/69 117/74 Pulse Oximetry 98 99 100 10/14/18 00:00 10/14/18 04:00 10/14/18 07:40 Temperature 98.0 F 97.7 F 97.7 F Pulse Rate 72 75 71 Respiratory Rate 20 20 20 Blood Pressure 110/59 L 105/60 101/59 L Pulse Oximetry 98 100 97 10/14/18 09:57 Temperature Pulse Rate Respiratory Rate Blood Pressure Pulse Oximetry 97 Intake & Output 10/13/18 10/14/18 10/14/18 18:59 06:59 18:59 Intake Total 2500 / 2500 2115 / 2115 1000 / 1000 Output Total 1150 / 1150 500 / 500 Balance 1350 / 1350 1615 / 1615 1000 / 1000 Weight 90.2 kg Intake: IV 1615 / 1615 1815 / 1815 1000 / 1000 NS Inj 1,000 ML @ 84 mls/hr IV. 1000 / 1000 1000 / 1000 1000 / 1000 CONT .[id number] [facility] Rx#:[id number] Maxipime Inj 2,000 MG In NS Inj 100 / 100 200 / 200 100 ML @ 200 mls/hr IV.SIG Q8H [facility] Rx#:[id number] Diflucan 200 mg Premix Bag 100 100 / 100 ML @ 100 mls/hr IV.SIG Q24H [facility] Rx#:[id number] Vancomycin Inj 1,500 MG In NS 515 / 515 515 / 515 Inj 500 ML @ 257.5 mls/hr IV. SIG Q12H [facility] Rx#:[id number] Oral 885 / 885 300 / 300 Output: Urine 1150 / 1150 500 / 500 Stool 0 / 0 Other: # Voids 3 Date of Last Bowel Movement 10/06/18 10/09/18 10/09/18 Narrative: Not in distress, on room air Pupils equal round reactive Regular rate and rhythm Occasional crackles on the right, no wheezing Abdomen soft, nontender No edema Alert awake and oriented, no focal deficits. Results Labs CBC & Chem 7: 10/13/18 20:59 10/14/18 11:52 Labs: Microbiology 10/12/18 19:15 Blood - Peripheral Aerobic Blood Culture - Preliminary No growth in 2 days 10/12/18 19:15 Blood - Peripheral Anaerobic Blood Culture - Preliminary No growth in 2 days 10/12/18 19:10 Blood - Peripheral Aerobic Blood Culture - Preliminary No growth in 2 days 10/12/18 19:10 Blood - Peripheral Anaerobic Blood Culture - Preliminary No growth in 2 days Imaging Imaging: Impressions Chest CT 10/13/18 16:02 CONCLUSION: 1. Mild patchy airspace consolidation in both lower lobes, right greater than left. The imaging features are characteristic of an infectious or inflammatory process. 2. There are multiple nodular airspace opacities bilaterally measuring up to 9 mm that likely represent the acute infectious or inflammatory process. These are new compared to the prior study from one year ago. Recommend follow-up chest CT after appropriate therapy to confirm resolution of these nodules. Assessment and Plan (1) Dara esophagitis: Code(s): B37.81 - Candidal esophagitis Status: Acute (2) HIV (human immunodeficiency virus infection): Code(s): B20 - Human immunodeficiency virus [HIV] disease Status: Chronic Plan 43-year-old male with history of HIV presenting to the hospital with cough, congestion, sore throat and fever Penumonia, HIV AIDS CD4 less than 20 - chest x-ray normal, CT chest showed mild patchy airspace consolidation in both lower lobes, right greater than the left with nodular airspace opacities bilaterally. Rule out PCP -Continue cefepime, vancomycin, Bactrim/Rifabutin for PCP prophylaxis. Follow- up AFB culture, fungus blood culture, lymphocyte profile, cryptococcal antigen, coccidiomycosis antibodies, toxoplasmosis antibodies, G6PD status, GC chlamydia PCR, RPR. Dysphagia - r/o dara esophagitis, history of esophagitis from Dara 2 years ago, for EGD tomorrow, supportive management. Fluconazole per ID Chest pain, likely secondary to pneumonia vs esophagitis -EKG within normal limits, Serial troponin is negative, D dimer negative Acute kidney injury -Dehydration, Resolved. Thrombocytopenia -Due to above, stable DVT GI prophylaxis Lovenox Progress Note: Quality VTE Deep Vein Thrombosis/Pulmonary Embolism Present on Admission: No _ (1) HIV (human immunodeficiency virus infection) Qualifiers: HIV symptom status:
[2018-10-14] MEDS ORDERED: Pharmacy Ordered Lab Info OTHER ONE (14:45)
[2018-10-14] MEDS: Pantoprazole Inj 40 MG Vial IV.PUSH SCH ×2 (15:40→22:01)
[2018-10-14] MEDS: RIFABUTIN 150 MG PO SCH (15:41)
--- NOTE | 2018-10-14 16:01 | MB ---
cc: Tray Doss MD DATE: 10/14/2018 REQUESTING PHYSICIAN: Promise Davies MD REASON FOR CONSULTATION: Evaluation for possible bronchoscopy and lung infiltrate. HISTORY OF PRESENT ILLNESS: Mr. Beebe is a 43-year-old male with history of Burkitt lymphoma diagnosed in 2013. He had a chemotherapy done in [facility] in 2014 and he was told that his lymphoma was in remission. He has a history of HIV disease is not taking any medication because he says of all of the medication were bothering him, causing stomach upset. He could not keep them. He came to the hospital complaining of 4-5 days history of abdominal discomfort, difficulty swallowing, has mild shortness of breath and had fever. Not able to bring up much phlegm. No chest pain. No nausea or vomiting. The patient was evaluated in the hospital. His nausea and vomiting have improved. He had a CT scan of the chest done, which shows mild patchy airspace consolidation in both lower lobes, greater on the right than on the left. PAST MEDICAL HISTORY: History of HIV disease. He is not on any medication at this point. History of Burkitt lymphoma status post chemotherapy, history of eczema. MEDICATIONS: He is currently takin. [place] 7.5/325 mg q.6 hours p.r.n. pain. 2. Cefepime 2 grams IV q.8 hours. 3. Mycelex Marisela. 4. Lovenox 40 mg a day. 5. Diflucan 200 mg q.24 hours. 6. Ipratropium nebulizer treatment. 7. Zofran p.r.n. 8. Protonix 40 mg a day. 9. Vancomycin IV. 10. Temazepam 15 mg at nighttime. 11. Bactrim-DS 1 tablet q.12 hours. ALLERGIES: HE DOES NOT TOLERATE ALBUTEROL, ALLERGY TO ZITHROMAX. SOCIAL HISTORY: He has a history of smoking, which he quit 3 months ago. No alcohol abuse. Denies any drug use. He states that he got his HIV through a bad tattoo. FAMILY HISTORY: He is single. He has 1 daughter. He lives with her. REVIEW OF SYSTEMS: He has lost weight. Usually his weight fluctuates. Has difficulty swallowing. No seizure, stroke present. No DVT. pulmonary embolism. No liver or gallbladder problem. PHYSICAL EXAMINATION: GENERAL: Well-built, well-nourished male, not in any acute distress. VITAL SIGNS: Blood pressure 101/59, heart rate 72, respirations 20, temperature 97.7. HEENT: Pupils are equal and reactive to light. Oral mucosa and nasal mucosa normal. NECK: Without JVD. CHEST: Clear. He has few rales at the bases. HEART: S1, S2 normal. ABDOMEN: Soft, nondistended. Bowel sounds are present. EXTREMITIES: No edema. IMPRESSION: 1. Bilateral patchy infiltrate. Need to rule out possibility of Pneumocystis pneumonia or other opportunistic pneumonia. 2. Human immunodeficiency virus disease. 3. History of Burkitt lymphoma. 4. Dysphagia/odynophagia. PLAN: Continue present antibiotic per ID recommendation. He will need bronchoscopy. I explained to him the procedure and the complications, including complication of anesthesia, pneumothorax requiring chest tube, bleeding complication, injury to the blood vessel, lungs, nerves, arrhythmia, hypoxia. He understood and did want to proceed with it. The patient is also going to have EGD, we will coordinate with GI. Further treatment pending the course in the hospital. Thank you Dr. Davies for this consult. Tray Doss MD ADA/ct , 03:34 PM , 03:44 PM
--- NOTE | 2018-10-14 17:36 | P.PNADD ---
Addendum to Inpatient Note Additional information: gaetano Ivory Patient will get Bronch in am. Also EGD planned in am.
[2018-10-14] MEDS: Enoxaparin Inj 40 MG/0.4 ML Syringe SQ SCH ×2 (19:59→22:00)
[2018-10-15] MEDS: Vancomycin Inj 1,500 MG in Sodium Chlor 0.9% Inj 500 ML IV.SIG SCH ×2 (03:12→15:24)
[2018-10-15] MEDS: Clotrimazole 10 MG Troche BUCCAL SCH ×4 (05:22→21:23)
[2018-10-15] MEDS: Chlorhexidine Gluconate 2% 1 Pack (2 Cloths) TOPICAL SCH (05:22)
[2018-10-15 06:54] LABS: Toxoplasma Ab, IgM Negative (Negative)
[2018-10-15] MEDS: Senna/Docusate Sodium 8.6/50 MG Tablet PO SCH ×2 (08:37→21:24)
[2018-10-15] MEDS: Sod Chloride 0.9% Inj 1,000 ML IV.CONT SCH (10:15)
--- NOTE | 2018-10-15 11:03 | P.PNIM ---
Subjective Interval history: Follow-up for shortness of breath Shortness of breath better, on room air, no nausea or vomiting. Still with dysphagia, seen by pulmonary, for bronchoscopy. Physical Exam Vital signs: Vital Signs 10/14/18 20:00 10/14/18 21:13 10/15/18 00:00 Temperature 98.3 F Pulse Rate 70 Respiratory Rate 18 17 Blood Pressure 118/55 L Pulse Oximetry 99 100 10/15/18 00:36 10/15/18 04:00 10/15/18 08:00 Temperature 98.7 F 98.7 F 98.4 F Pulse Rate 69 70 68 Respiratory Rate 18 18 20 Blood Pressure 118/52 L 115/54 L 124/63 Pulse Oximetry 99 97 100 10/15/18 08:14 10/15/18 10:05 Temperature 98.4 F Pulse Rate 69 Respiratory Rate 16 Blood Pressure 120/74 Pulse Oximetry 98 100 Intake & Output 10/14/18 10/15/18 10/15/18 18:59 06:59 18:59 Intake Total 1440 / 1440 2430 / 2430 Output Total 700 / 700 500 / 500 Balance 1440 / 1440 1730 / 1730 -500 / -500 Weight 90 kg Intake: IV 1200 / 1200 2430 / 2430 NS Inj 1,000 ML @ 84 mls/hr IV. 1000 / 1000 1200 / 1200 CONT .[id number] [facility] Rx#:[id number] Maxipime Inj 2,000 MG In NS Inj 100 / 100 200 / 200 100 ML @ 200 mls/hr IV.SIG Q8H [facility] Rx#:[id number] Diflucan 200 mg Premix Bag 100 100 / 100 ML @ 100 mls/hr IV.SIG Q24H [facility] Rx#:[id number] Vancomycin Inj 1,500 MG In NS 1030 / 1030 Inj 500 ML @ 257.5 mls/hr IV. SIG Q12H [facility] Rx#:[id number] Oral 240 / 240 Output: Urine 700 / 700 500 / 500 Other: Date of Last Bowel Movement 10/09/18 10/09/18 Narrative: Not in distress, on room air Pupils equal round reactive Regular rate and rhythm Clear breath sounds, no wheezing Abdomen soft, nontender No edema Alert awake and oriented, no focal deficits. Results Labs CBC & Chem 7: 10/13/18 20:59 10/14/18 11:52 Labs: Microbiology 10/12/18 19:15 Blood - Peripheral Aerobic Blood Culture - Preliminary No growth in 2 days 10/12/18 19:15 Blood - Peripheral Anaerobic Blood Culture - Preliminary No growth in 2 days 10/12/18 19:10 Blood - Peripheral Aerobic Blood Culture - Preliminary No growth in 2 days 10/12/18 19:10 Blood - Peripheral Anaerobic Blood Culture - Preliminary No growth in 2 days Assessment and Plan (1) Dara esophagitis: Code(s): B37.81 - Candidal esophagitis Status: Acute (2) HIV (human immunodeficiency virus infection): Code(s): B20 - Human immunodeficiency virus [HIV] disease Status: Chronic Plan 43-year-old male with history of HIV presenting to the hospital with cough, congestion, sore throat and fever Pnnumonia, HIV AIDS CD4 less than 20 my rule out Pneumocystis carinii pneumonia. - chest x-ray normal, CT chest showed mild patchy airspace consolidation in both lower lobes, right greater than the left with nodular airspace opacities bilaterally. Rule out PCP -Continue cefepime, vancomycin, Bactrim for PCP prophylaxis. Toxoplasma IgM antibody negative, hepatitis serology nonreactive, gonorrhea PCR negative, RPR negative. Follow-up AFB culture, lymphocyte profile, cryptococcal antigen, coccidiomycosis antibodies, toxoplasmosis antibodies, G6PD status. -Seen by pulmonary, for bronchoscopy to rule out PCP. Dysphagia - r/o dara esophagitis, history of esophagitis from Dara 2 years ago, for EGD , supportive management. Fluconazole per ID Chest pain, likely secondary to pneumonia vs esophagitis -EKG within normal limits, Serial troponin is negative, D dimer negative Acute kidney injury-Dehydration, Resolved. Thrombocytopenia-Due to above, stable DVT prophylaxis Lovenox Progress Note: Quality VTE Deep Vein Thrombosis/Pulmonary Embolism Present on Admission: No _ (1) HIV (human immunodeficiency virus infection) Qualifiers: HIV symptom status:
[2018-10-15] MEDS ORDERED: Lidocaine PF 1% Inj 5 ML Syringe INFILTRATN ONE (11:07)
[2018-10-15] MEDS ORDERED: Succinylcholine Inj 100 MG/5 ML Syringe IV.PUSH ONE (11:07)
--- NOTE | 2018-10-15 11:59 | MP ---
cc: Tray Doss MD DATE OF OPERATION: 10/15/2018 PROCEDURE: Bronchoscopy. PREOPERATIVE DIAGNOSIS: Bilateral lung infiltrate and human immunodeficiency virus positive. POSTOPERATIVE DIAGNOSES: Mucus plugging. DESCRIPTION OF PROCEDURE: Informed consent was obtained from the patient. Procedure and the complications, including complication of anesthesia; pneumothorax requiring chest tube; bleeding complication; injury to the blood vessel, lungs, nerves; arrhythmia; hypoxia were explained and he consented for the procedure. The patient was brought to endoscopy suite under general anesthesia and an endotracheal tube was placed by anesthesiologist. Bronchoscope placed into the endotracheal tube. Main jair is sharp. Bronchus were down to the right lung. There was lot of thick mucus. After repeated washing, all mucus plugs were removed. Right upper, middle, and lower lobes were visualized. No endobronchial mucosal lesion was seen. The bronchoscope was advanced to the left lung. Left upper lingular and lower lobe were visualized. Mucus plugs were suctioned. No endobronchial mucosal lesion was seen. Bronchial washings were done, which were sent for routine culture, AFB, fungal culture, cytology, and PCP. He tolerated the procedure well. The patient is scheduled to follow up with an EGD after bronchoscopy. He remains intubated for the same patient. MD JULIO Young/ts , 11:29 AM , 11:35 AM
--- NOTE | 2018-10-15 12:44 | P.PNADD ---
Addendum to Inpatient Note Additional information: Attempted to see patient patient was gone for bronchoscopy as well as EGD today. Dr. Morrissey covering for me this weekend please call with any acute changes or new findings.
[2018-10-15] MEDS: RIFABUTIN 150 MG PO SCH (13:12)
--- NOTE | 2018-10-15 18:00 | P.PNPL ---
Subjective Interval history: 43 YOAA male with HIV, bilat infilt had Bronch lot of thick mucous plugs removed No Fever Physical Exam Vital signs: Vital Signs 10/14/18 20:00 10/14/18 21:13 10/15/18 00:00 Temperature 98.3 F Pulse Rate 70 Respiratory Rate 18 17 Blood Pressure 118/55 L Pulse Oximetry 99 100 10/15/18 00:36 10/15/18 04:00 10/15/18 08:00 Temperature 98.7 F 98.7 F 98.4 F Pulse Rate 69 70 68 Respiratory Rate 18 18 20 Blood Pressure 118/52 L 115/54 L 124/63 Pulse Oximetry 99 97 100 10/15/18 08:14 10/15/18 10:05 10/15/18 12:10 Temperature 98.4 F Pulse Rate 69 Respiratory Rate 16 Blood Pressure 120/74 Pulse Oximetry 98 100 100 10/15/18 12:11 10/15/18 12:15 10/15/18 12:24 Temperature 98 F Pulse Rate 82 83 80 Respiratory Rate 21 20 17 Blood Pressure 119/74 122/78 116/75 Pulse Oximetry 100 98 96 10/15/18 12:35 10/15/18 13:34 10/15/18 17:00 Temperature 98.1 F 98.3 F 98.2 F Pulse Rate 82 76 68 Respiratory Rate 18 20 20 Blood Pressure 126/76 114/68 115/67 Pulse Oximetry 97 99 Intake & Output 10/14/18 10/15/18 10/15/18 18:59 06:59 18:59 Intake Total 1440 / 1440 2430 / 2430 2500 / 2500 Output Total 700 / 700 1400 / 1400 Balance 1440 / 1440 1730 / 1730 1100 / 1100 Weight 90 kg Intake: IV 1200 / 1200 2430 / 2430 500 / 500 NS Inj 1,000 ML @ 84 mls/hr IV. 1000 / 1000 1200 / 1200 500 / 500 CONT .[id number] [facility] Rx#:[id number] Maxipime Inj 2,000 MG In NS Inj 100 / 100 200 / 200 100 ML @ 200 mls/hr IV.SIG Q8H [facility] Rx#:[id number] Diflucan 200 mg Premix Bag 100 100 / 100 ML @ 100 mls/hr IV.SIG Q24H [facility] Rx#:[id number] Vancomycin Inj 1,500 MG In NS 1030 / 1030 Inj 500 ML @ 257.5 mls/hr IV. SIG Q12H [facility] Rx#:[id number] Oral 240 / 240 1500 / 1500 Anesthesia Amount 500 / 500 Output: Urine 700 / 700 1400 / 1400 Other: Date of Last Bowel Movement 10/09/18 10/09/18 GENERAL: WBWn NAD SKIN: Warm and dry. HEAD: Normocephalic. EYES: No scleral icterus. No injection or drainage. NECK: Supple, trachea midline. No JVD or lymphadenopathy. CARDIOVASCULAR: Regular rate and rhythm without murmurs, gallops, or rubs. RESPIRATORY: Breath sounds equal bilaterally. No accessory muscle use. GASTROINTESTINAL: Abdomen soft, non-tender, nondistended. MUSCULOSKELETAL: No cyanosis, or edema. BACK: Nontender without obvious deformity. No CVA tenderness. Assessment and Plan - Plan IMPRESSION: 1. Bilateral patchy infiltrate. Need to rule out possibility of Pneumocystis pneumonia or other opportunistic pneumonia. 2. Human immunodeficiency virus disease. 3. History of Burkitt lymphoma. 4. Dysphagia/odynophagia. PLAN: Check bronch results Aerosol nebs Abx per ID
[2018-10-15] MEDS: Enoxaparin Inj 40 MG/0.4 ML Syringe SQ SCH (21:23)
[2018-10-16] MEDS: Sod Chloride 0.9% Inj 1,000 ML IV.CONT SCH ×3 (02:12→22:43)
[2018-10-16] MEDS: Vancomycin Inj 1,500 MG in Sodium Chlor 0.9% Inj 500 ML IV.SIG SCH ×2 (02:39→16:02)
[2018-10-16] MEDS ORDERED: Pharmacy Ordered Lab Info OTHER ONE (02:45)
[2018-10-16] MEDS: Chlorhexidine Gluconate 2% 1 Pack (2 Cloths) TOPICAL SCH (03:00)
[2018-10-16] MEDS: Clotrimazole 10 MG Troche BUCCAL SCH ×5 (05:42→22:48)
[2018-10-16] MEDS: Senna/Docusate Sodium 8.6/50 MG Tablet PO SCH ×2 (09:38→22:48)
[2018-10-16] MEDS: RIFABUTIN 150 MG PO SCH (09:40)
[2018-10-16] MEDS ORDERED: Magnesium Citrate Liq 300 ML Bottle PO ONE (10:03)
--- NOTE | 2018-10-16 10:31 | P.PNGI ---
Subjective Interval history: Patient is resting in the bed TVL denies any nausea vomiting dyspepsia or abdominal pain Constipation symptoms states no bowel movement in over a week <Becca Shields M - Last Filed: 10/16/18 14:17> Physical Exam Vital signs: Vital Signs 10/15/18 10:05 10/15/18 12:10 10/15/18 12:11 Temperature 98.4 F 98 F Pulse Rate 69 82 Respiratory Rate 16 21 Blood Pressure 120/74 119/74 Pulse Oximetry 100 100 100 10/15/18 12:15 10/15/18 12:24 10/15/18 12:35 Temperature 98.1 F Pulse Rate 83 80 82 Respiratory Rate 20 17 18 Blood Pressure 122/78 116/75 126/76 Pulse Oximetry 98 96 10/15/18 13:34 10/15/18 17:00 10/15/18 20:00 Temperature 98.3 F 98.2 F Pulse Rate 76 68 Respiratory Rate 20 20 Blood Pressure 114/68 115/67 Pulse Oximetry 97 99 96 10/15/18 21:00 10/16/18 00:00 10/16/18 01:00 Temperature 99.5 F 98.7 F Pulse Rate 81 78 Respiratory Rate 20 18 20 Blood Pressure 126/67 128/68 Pulse Oximetry 96 95 10/16/18 03:59 10/16/18 05:00 10/16/18 08:15 Temperature 98.6 F 98.6 F Pulse Rate 75 77 Respiratory Rate 17 18 20 Blood Pressure 122/67 119/58 L Pulse Oximetry 96 99 Intake & Output 10/15/18 10/16/18 10/16/18 18:59 06:59 18:59 Intake Total 2600 / 2600 1290 / 1290 1000 / 1000 Output Total 1400 / 1400 900 / 900 Balance 1200 / 1200 390 / 390 1000 / 1000 Weight 90 kg Intake: IV 600 / 600 1230 / 1230 1000 / 1000 NS Inj 1,000 ML @ 84 mls/hr IV. 500 / 500 1000 / 1000 CONT .[id number] [facility] Rx#:[id number] Maxipime Inj 2,000 MG In NS Inj 100 / 100 200 / 200 100 ML @ 200 mls/hr IV.SIG Q8H [facility] Rx#:[id number] Vancomycin Inj 1,500 MG In NS 1030 / 1030 Inj 500 ML @ 257.5 mls/hr IV. SIG Q12H [facility] Rx#:[id number] Oral 1500 / 1500 60 / 60 Anesthesia Amount 500 / 500 Output: Urine 1400 / 1400 900 / 900 Other: Date of Last Bowel Movement 10/09/18 - Constitutional no acute distress, thin, chronically ill appearing - Routine HEENT Exam Head: Present: normocephalic (Dry) ENT: Present: mucous membranes dry - Routine Neck Exam Present: supple - Routine Respiratory Exam Present: CTA bilaterally (No shortness of breath at rest) - Routine Cardiovascular Exam Present: S1, S2 - Routine Abdominal Exam Present: soft (Soft bowel sounds, abdomen flat but taut, denies any abdominal pain with light palpation) - Routine Skin Exam Present: intact, dry <Becca Shields - Last Filed: 10/16/18 14:17> Vital signs: Vital Signs 10/16/18 12:50 10/16/18 13:15 10/16/18 16:50 Temperature 97.9 F 98.0 F Pulse Rate 67 79 Respiratory Rate 20 20 Blood Pressure 113/66 128/77 Pulse Oximetry 96 96 98 10/16/18 20:00 10/17/18 00:00 10/17/18 04:00 Temperature 99.8 F H 99.5 F 98.8 F Pulse Rate 88 86 82 Respiratory Rate 18 16 18 Blood Pressure 108/57 L 110/55 L 110/63 Pulse Oximetry 97 98 96 10/17/18 08:10 Temperature 98.9 F Pulse Rate 84 Respiratory Rate 18 Blood Pressure 118/59 L Pulse Oximetry 97 Intake & Output 10/16/18 10/17/18 10/17/18 18:59 06:59 18:59 Intake Total 1815 / 1815 915 / 915 800 / 800 Output Total 875 / 875 Balance 940 / 940 915 / 915 800 / 800 Weight 90 kg Intake: IV 1815 / 1815 915 / 915 800 / 800 NS Inj 1,000 ML @ 84 mls/hr IV. 1000 / 1000 200 / 200 800 / 800 CONT .[id number] [facility] Rx#:[id number] Maxipime Inj 2,000 MG In NS Inj 100 / 100 200 / 200 100 ML @ 200 mls/hr IV.SIG Q8H [facility] Rx#:[id number] Diflucan 200 mg Premix Bag 100 200 / 200 ML @ 100 mls/hr IV.SIG Q24H [facility] Rx#:[id number] Vancomycin Inj 1,500 MG In NS 515 / 515 515 / 515 Inj 500 ML @ 257.5 mls/hr IV. SIG Q12H [facility] Rx#:[id number] Output: Urine 875 / 875 Other: # Voids 2 2 <Ivan Mcrae - Last Filed: 10/17/18 09:55> Results - Labs CBC & Chem 7: 10/16/18 09:58 10/14/18 11:52 Laboratory Results - last 24 hr 10/13/18 10/16/18 16:30 02:20 Vancomycin Trough 18.8 H Absolute Lymphocytes 250 L % CD3 Cells 71 Absolute CD3 Count 178 L % CD3-/CD16+/CD56+ 22 Abs CD3-/CD16+/CD56+ 55 L % CD4 Cells 3 L Absolute CD4 Count Less than 20 L T-Help/Suppress Ratio 0.10 L % CD8 Cells 67 H Absolute CD8 Count 166 L % CD19 Cells 5 L Absolute CD19 Count Less than 20 L Microbiology 10/12/18 19:15 Blood - Peripheral Aerobic Blood Culture - Preliminary No growth in 3 days 10/12/18 19:15 Blood - Peripheral Anaerobic Blood Culture - Preliminary No growth in 3 days 10/12/18 19:10 Blood - Peripheral Aerobic Blood Culture - Preliminary No growth in 3 days 10/12/18 19:10 Blood - Peripheral Anaerobic Blood Culture - Preliminary No growth in 3 days <Becca Shields - Last Filed: 10/16/18 14:17> - Labs CBC & Chem 7: 10/16/18 09:58 10/17/18 06:54 Laboratory Results - last 24 hr 10/13/18 10/16/18 10/17/18 16:30 09:58 06:54 WBC 1.2 L RBC 2.60 L Hgb 8.1 L Hct 25.2 L MCV 96.8 MCH 31.2 MCHC 32.2 RDW 16.8 Plt Count 109 L MPV 9.3 Prelim Diff (Auto) Manual diff required WBC Differential Manual diff final Seg Neuts % (Manual) 8 L Band Neuts % (Manual) 6 Lymphocytes % (Manual) 22 Monocytes % (Manual) 31 H Eosinophils % (Manual) 32 H Metamyelocytes % (Man) 1 Abs Neuts (Manual) 0.2 L* Differential Comment . Platelet Estimate Low L Platelet Morphology Normal Ovalocytes 1+ H Creatinine 1.00 Estimated GFR Greater than 89 Toxoplasma IgG Ab <7.20 Microbiology 10/15/18 11:18 Bronchial - Bronchial Gram Stain - Final 10/15/18 11:18 Bronchial - Bronchial Bronchial Culture - Preliminary No growth in 24 hours 10/15/18 11:18 Bronchial Washings - Bronchial Fungal Smear - Final No fungal elements seen 10/12/18 19:15 Blood - Peripheral Aerobic Blood Culture - Preliminary No growth in 4 days 10/12/18 19:15 Blood - Peripheral Anaerobic Blood Culture - Preliminary No growth in 4 days 10/12/18 19:10 Blood - Peripheral Aerobic Blood Culture - Preliminary No growth in 4 days 10/12/18 19:10 Blood - Peripheral Anaerobic Blood Culture - Preliminary No growth in 4 days <Ivan Mcrae - Last Filed: 10/17/18 09:55> Assessment and Plan (1) Dara esophagitis Status: Acute Code(s): B37.81 - Candidal esophagitis (2) HIV (human immunodeficiency virus infection) Status: Chronic Code(s): B20 - Human immunodeficiency virus [HIV] disease - Plan Patient is a 43-year-old male with past medical history significant for lymphoma and HIV infection that has progressed to AIDS. Patient presented to [facility] emergency department with a report of generalized weakness with body aches and subjective fever for the last 5-6 days. Patient also endorsed at that time that he had cough, congestion and sore throat. Upon consultation, patient endorses that he has had nausea and vomiting, 3 episodes on the morning of his admission. Patient denies diarrhea. Of note, patient states that last EGD was done in May 2017 and revealed a esophagitis as well as Dara infection. Patient states he was treated with Magic mouthwash and did not follow-up. States he does not presently have an infectious disease doctor in the community. Patient describes discomfort in the epigastric region that radiates up into his midsternal area as a "gas type pressure". Patient also endorses pain with swallowing denies difficulty swallowing, denies choking or coughing. Patient describes odynophagia as a sharp stabbing pain with swallowing solids onset 2 years ago. States he has been unable to take his prescribed HIV medications due to the consistent epigastric pain. Patient states he is a former smoker of 1 pack of cigarettes per day, stopped 2 months ago. Patient denies use of alcohol products. Patient denies any family history of gastrointestinal disorders. Patient does endorse chronic constipation for which he takes increased fiber and stool softeners [id number]. Denies any hematochezia or melena stools. Our service has been consulted to evaluate patient for dysphagia in light of history of esophagitis and Dara infection. Dysphagia History of esophagitis with Dara infection Patient endorses dysphagia onset 2 years ago. States sharp stabbing pain with ingestion of solid foods. May 22, 2017 EGD revealed the following: White exudates consistent with candidiasis in the entire esophagus, mild gastritis in the gastric antrum, retroflexed views revealed no abnormalities. 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 10/16/2018, patient denies any nausea vomiting or abdominal pain states his GI symptoms have improved patient is status post EGD with normal findings Constipation functional acute on chronic, states no bowel movement times 1 week. Labs reviewed Anemia current hemoglobin 8.1 chronic Leukopenia WBC count 1.2, medical management for neutropenic fever and sepsis per hospitalist. Stable from a GI standpoint we will sign off for now Plan Diet as tolerated, reflux precautions and eat slowly Monitor labs with special attention to hemoglobin and transfuse as needed Discussed with patient the need for follow-up outpatient if any symptoms persist with dysphasia or dyspepsia Mag citrate ordered x1 today if no results patient may need enema follow-up GI will sign off for now Patient was seen per myself and Dr. Mcrae, note was written on his behalf <Becca Shields - Last Filed: 10/16/18 14:17> (1) Dara esophagitis Status: Acute Code(s): B37.81 - Candidal esophagitis (2) HIV (human immunodeficiency virus infection) Status: Chronic Code(s): B20 - Human immunodeficiency virus [HIV] disease - Attending Attestation I have seen and examined the patient and reviewed the patients care with the OXYGRAPH OPERATOR. I agree with the above assessment and recommendations as documented above. <Ivan Mcrae - Last Filed: 10/17/18 09:55>
--- NOTE | 2018-10-16 11:03 | P.PNIM ---
Subjective Interval history: Follow-up for shortness of breath, right jaw pain and headache with history of HIV AIDS. Patient seen and examined sitting on his bed, complaining of right-sided headache stated due to his infected tooth. Patient denies any dizziness at this time. Patient stated he had some chills with diaphoresis last night and fever however does not know what the temperature was. Patient stated did not tell the nurse last night. Patient denies any abdominal pain, nausea, vomiting, diarrhea or constipation. Patient admitted he had not been taking his HIV medication at home. Nurse reported no acute concerns overnight Physical Exam Vital signs: Vital Signs 10/15/18 12:10 10/15/18 12:11 10/15/18 12:15 Temperature 98 F Pulse Rate 82 83 Respiratory Rate 21 20 Blood Pressure 119/74 122/78 Pulse Oximetry 100 100 98 10/15/18 12:24 10/15/18 12:35 10/15/18 13:34 Temperature 98.1 F 98.3 F Pulse Rate 80 82 76 Respiratory Rate 17 18 20 Blood Pressure 116/75 126/76 114/68 Pulse Oximetry 96 97 10/15/18 17:00 10/15/18 20:00 10/15/18 21:00 Temperature 98.2 F 99.5 F Pulse Rate 68 81 Respiratory Rate 20 20 Blood Pressure 115/67 126/67 Pulse Oximetry 99 96 96 10/16/18 00:00 10/16/18 01:00 10/16/18 03:59 Temperature 98.7 F Pulse Rate 78 Respiratory Rate 18 20 17 Blood Pressure 128/68 Pulse Oximetry 95 10/16/18 05:00 10/16/18 08:15 Temperature 98.6 F 98.6 F Pulse Rate 75 77 Respiratory Rate 18 20 Blood Pressure 122/67 119/58 L Pulse Oximetry 96 99 Intake & Output 10/15/18 10/16/18 10/16/18 18:59 06:59 18:59 Intake Total 2600 / 2600 1290 / 1290 1000 / 1000 Output Total 1400 / 1400 900 / 900 Balance 1200 / 1200 390 / 390 1000 / 1000 Weight 90 kg Intake: IV 600 / 600 1230 / 1230 1000 / 1000 NS Inj 1,000 ML @ 84 mls/hr IV. 500 / 500 1000 / 1000 CONT .[id number] [facility] Rx#:[id number] Maxipime Inj 2,000 MG In NS Inj 100 / 100 200 / 200 100 ML @ 200 mls/hr IV.SIG Q8H [facility] Rx#:[id number] Vancomycin Inj 1,500 MG In NS 1030 / 1030 Inj 500 ML @ 257.5 mls/hr IV. SIG Q12H [facility] Rx#:[id number] Oral 1500 / 1500 60 / 60 Anesthesia Amount 500 / 500 Output: Urine 1400 / 1400 900 / 900 Other: Date of Last Bowel Movement 10/09/18 Narrative: GENERAL: Well-developed, well-nourished, -Iranian male in no acute distress SKIN: Warm and dry. HEAD: Atraumatic. Normocephalic. EYES: Pupils equal and round. No scleral icterus. No injection or drainage. ENT: No nasal bleeding or discharge. Mucous membranes pink and moist. NECK: Trachea midline. No JVD. CARDIOVASCULAR: Regular rate and rhythm. RESPIRATORY: No accessory muscle use. Clear to auscultation. Breath sounds equal bilaterally. GASTROINTESTINAL: Abdomen soft, non-tender, nondistended. Hepatic and splenic margins not palpable. MUSCULOSKELETAL: Extremities without clubbing, cyanosis, or edema. No obvious deformities. NEUROLOGICAL: Awake and alert. No obvious cranial nerve deficits. Motor grossly within normal limits. Five out of 5 muscle strength in the arms and legs. Normal speech. PSYCHIATRIC: Appropriate mood and affect; insight and judgment normal. Results Labs CBC & Chem 7: 10/13/18 20:59 10/14/18 11:52 Labs: Microbiology 10/12/18 19:15 Blood - Peripheral Aerobic Blood Culture - Preliminary No growth in 4 days 10/12/18 19:15 Blood - Peripheral Anaerobic Blood Culture - Preliminary No growth in 4 days 10/12/18 19:10 Blood - Peripheral Aerobic Blood Culture - Preliminary No growth in 4 days 10/12/18 19:10 Blood - Peripheral Anaerobic Blood Culture - Preliminary No growth in 4 days Assessment and Plan (1) Dara esophagitis: Code(s): B37.81 - Candidal esophagitis Status: Acute (2) HIV (human immunodeficiency virus infection): Code(s): B20 - Human immunodeficiency virus [HIV] disease Status: Chronic Plan 43-year-old male with history of HIV presenting to the hospital with cough, congestion, sore throat and fever Pneumonia HIV/ AIDS CD4 less than 20 - rule out Pneumocystis carinii pneumonia. - chest x-ray normal - CT chest showed mild patchy airspace consolidation in both lower lobes, right greater than the left with nodular airspace opacities bilaterally. -Continue cefepime, vancomycin, Bactrim for PCP prophylaxis. -Toxoplasma IgM antibody negative, hepatitis serology nonreactive, gonorrhea PCR negative, RPR negative. - Follow-up AFB culture, lymphocyte profile, cryptococcal antigen, coccidiomycosis antibodies, toxoplasmosis antibodies, G6PD status. -Pulmonary following, appreciate assistance: status post bronchoscopy to rule out PCP, follow results -GI following, appreciate assistance: for EGD today, n.p.o. Dysphagia - r/o dara esophagitis, -history of esophagitis from Dara 2 years ago -GI following, for EGD - supportive management -continue clotrimazole ravi - Fluconazole per ID Chest pain - likely secondary to pneumonia vs esophagitis -EKG within normal limits - Serial troponin negative, -D-dimer negative Acute kidney injury -likely due to Dehydration - Resolved. Thrombocytopenia -Due to above, stable GI Prophylaxis : on protonix and stool softeners DVT prophylaxis: Lovenox Progress Note: Quality VTE Deep Vein Thrombosis/Pulmonary Embolism Present on Admission: No _ (1) HIV (human immunodeficiency virus infection) Qualifiers: HIV symptom status:
[2018-10-16 11:53] LABS: Hematocrit 25.2 % (39.0-51.0); Hemoglobin 8.1 gm/dL (13.0-17.0); Mean Corpuscular HGB Conc 32.2 % (32.0-36.0); Mean Corpuscular Hemoglobin 31.2 pg (27.0-34.0); Mean Corpuscular Volume 96.8 fL (80.0-100.0); Mean Platelet Volume 9.3 fL (7.0-11.0); Platelet Count 109 th/mm3 (150-450); Red Cell Distribution Width 16.8 % (11.6-17.2); White Blood Count 1.2 th/mm3 (4.0-11.0)
[2018-10-16 13:03] LABS: Eosinophils 32 % (0-4); Lymphocytes 22 % (9-44); Metamyelocytes 1 % (0-1); Monocytes 31 % (0-8)
[2018-10-16 13:14] LABS: Platelet Morphology Normal (Normal)
[2018-10-16 13:15] LABS: Ovalocytes 1+
--- NOTE | 2018-10-16 16:41 | P.PNID ---
Subjective Remarks: ID coverage. Mr. Beebe is a 43-year-old -[place] male with known history of HIV AIDS with last CD4 count less than 20. Patient reports that he has not been compliant with his medications due to side effects. He was not able to provide me the name of his HIV care provider. 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 Patient reports history of recurrent pneumonias for which he has been admitted or presented to the hospital at least 6 times in the last 1 year. He also reports history of EGD for difficulty swallowing and being diagnosed with Dara esophagitis. He reports that he stopped taking his Diflucan approximately 2 months back. He now presents with a history feeling ill since 4 -5 days prior to this admission. He reports cough, congestion, sore throat and fever. He reports subjective fevers but he has not recorded any temperatures at home. He reports having nausea followed by vomiting and having 3 episodes of vomiting even on the day of admission. He denies any diarrhea. He reports difficulty swallowing. He reports that he suffers from chronic constipation. His last BM was 2 days prior to admission. Patient reports chest pain in the center of his chest feeling of tightening sensation. He reports rhinorrhea as well as cough productive of yellowish sputum. He denies any hemoptysis. Endorses generalized weakness. During his past admission patient signed off AMA while being treated for Dara esophagitis. Infectious diseases consulted for evaluation and fever in a patient with HIV. Patient underwent bronchoscopy. No complaints. Afebrile. White blood cell count severely depressed. Notes that he gets sweats. Reports that he is not short of breath. Past Medical History: Medical History: Medical History (Last Reviewed 10/13/18 @ 08:01 by Braulio Stack) HIV (human immunodeficiency virus infection) Lymphoma Surgical History: Surgical History (Last Reviewed 10/13/18 @ 08:01 by Braulio Stack) Status post chemotherapy No history of previous surgery Allergies/Adverse Reactions: Allergies albuterol Allergy (Intermediate, Verified 03/15/18 16:58) Hives shortness of breath azithromycin Allergy (Verified 07/08/18 19:59) Hives Objective Vital Signs 10/15/18 17:00 10/15/18 20:00 10/15/18 21:00 Temperature 98.2 F 99.5 F Pulse Rate 68 81 Respiratory Rate 20 20 Blood Pressure 115/67 126/67 Pulse Oximetry 99 96 96 10/16/18 00:00 10/16/18 01:00 10/16/18 03:59 Temperature 98.7 F Pulse Rate 78 Respiratory Rate 18 20 17 Blood Pressure 128/68 Pulse Oximetry 95 10/16/18 05:00 10/16/18 08:15 10/16/18 12:50 Temperature 98.6 F 98.6 F 97.9 F Pulse Rate 75 77 67 Respiratory Rate 18 20 20 Blood Pressure 122/67 119/58 L 113/66 Pulse Oximetry 96 99 96 10/16/18 13:15 Temperature Pulse Rate Respiratory Rate Blood Pressure Pulse Oximetry 96 Intake & Output 10/15/18 10/16/18 10/16/18 18:59 06:59 18:59 Intake Total 2600 / 2600 1290 / 1290 1200 / 1200 Output Total 1400 / 1400 900 / 900 875 / 875 Balance 1200 / 1200 390 / 390 325 / 325 Weight 90 kg Intake: IV 600 / 600 1230 / 1230 1200 / 1200 NS Inj 1,000 ML @ 84 mls/hr IV. 500 / 500 1000 / 1000 CONT .[id number] [facility] Rx#:[id number] Maxipime Inj 2,000 MG In NS Inj 100 / 100 200 / 200 100 / 100 100 ML @ 200 mls/hr IV.SIG Q8H [facility] Rx#:[id number] Diflucan 200 mg Premix Bag 100 100 / 100 ML @ 100 mls/hr IV.SIG Q24H [facility] Rx#:[id number] Vancomycin Inj 1,500 MG In NS 1030 / 1030 Inj 500 ML @ 257.5 mls/hr IV. SIG Q12H [facility] Rx#:[id number] Oral 1500 / 1500 60 / 60 Anesthesia Amount 500 / 500 Output: Urine 1400 / 1400 900 / 900 875 / 875 Other: Date of Last Bowel Movement 10/09/18 10/15/18 11:18 Bronchial - Bronchial Gram Stain - Final 10/15/18 11:18 Bronchial - Bronchial Bronchial Culture - Preliminary No growth in 24 hours 10/15/18 11:18 Bronchial Washings - Bronchial Fungal Smear - Final No fungal elements seen 10/15/18 11:18 Bronchial Washings - Bronchial Fungal Culture - Pending 10/12/18 19:15 Blood - Peripheral Aerobic Blood Culture - Preliminary No growth in 4 days 10/12/18 19:15 Blood - Peripheral Anaerobic Blood Culture - Preliminary No growth in 4 days 10/12/18 19:10 Blood - Peripheral Aerobic Blood Culture - Preliminary No growth in 4 days 10/12/18 19:10 Blood - Peripheral Anaerobic Blood Culture - Preliminary No growth in 4 days 10/15/18 11:18 Bronchial Washings - Bronchial Acid Fast Bacilli Smear - Pending 10/15/18 11:18 Bronchial Washings - Bronchial Mycobacterial Culture - Pending 10/13/18 16:30 Blood - Peripheral Blood Fungal Culture - Pending 10/13/18 16:30 Blood - Peripheral Blood Fungal Culture - Pending Lab - Hematology Results 10/16/18 09:58 WBC 1.2 L RBC 2.60 L Hgb 8.1 L Hct 25.2 L MCV 96.8 MCH 31.2 MCHC 32.2 RDW 16.8 Plt Count 109 L MPV 9.3 Prelim Diff (Auto) Manual diff required WBC Differential Manual diff final Seg Neuts % (Manual) 8 L Band Neuts % (Manual) 6 Lymphocytes % (Manual) 22 Monocytes % (Manual) 31 H Eosinophils % (Manual) 32 H Metamyelocytes % (Man) 1 Abs Neuts (Manual) 0.2 L* Differential Comment . Platelet Estimate Low L Platelet Morphology Normal Ovalocytes 1+ H Imaging: ITS Impressions Chest X-Ray 10/12/18 19:07 CONCLUSION: The lungs are clear. Head CT 10/12/18 20:07 CONCLUSION: 1. No acute intracranial abnormalities. Right frontal ventriculostomy. Partial opacification right ethmoid air cells. . Chest CT 10/13/18 16:02 CONCLUSION: 1. Mild patchy airspace consolidation in both lower lobes, right greater than left. The imaging features are characteristic of an infectious or inflammatory process. 2. There are multiple nodular airspace opacities bilaterally measuring up to 9 mm that likely represent the acute infectious or inflammatory process. These are new compared to the prior study from one year ago. Recommend follow-up chest CT after appropriate therapy to confirm resolution of these nodules. Physical Exam: GENERAL: Alert and oriented, no acute distress. HEENT: Head atraumatic. Pupils reactive to light. Extraocular movements intact. No icterus. No conjunctival erythema. Oropharynx mucosa moist. NECK: Supple without adenopathy. No swelling. LUNGS: Decreased clear breath sounds. HEART: Regular S1 and S2. ABDOMEN: Bowel sounds present, soft, no tenderness appreciated. EXTREMITIES: No clubbing cyanosis or edema. SKIN: No diffuse rash. NEUROLOGIC: Nonfocal. PSYCH: Calm and cooperative. Assessment and Plan - Plan HIV AIDS CD4 less than 20 history of shortness of breath, respiratory symptoms chest x-ray normal rule out PCP. History of recurrent pneumonia Dysphagia: Likely due to Dara esophagitis. History of Dara esophagitis status post EGD History of azithromycin allergy with hives Markedly decreased white count probably exacerbated by Bactrim. Recommendations Continue cefepime IV for now Continue vancomycin IV for now Stop Bactrim. CT chest with IV contrast stat ordered Rifabutin (150 mg x 2 tabs) i.e. 300 mg p.o. daily as I did not have an option to enter the same. AFB blood culture Fungus blood culture Lymphocyte profile to check for CD4 Check cryptococcal antigen Check coccidiomycosis antibodies Check toxoplasmosis antibodies Check G6PD status in case Needed Check GC chlamydia PCR Check RPR Consult gastroenterology for dysphagia prior history of esophagitis. Patient reports this is being a major factor noncompliance. Follow cultures Follow clinical course Monitor the [facility] culture. May need to consider pentamidine for PCP. Add Neupogen for severely depressed absolute neutrophil count. Monitor the white blood cell count.
[2018-10-16] MEDS ORDERED: Filgrastim Inj 300 MCG/ML Vial SQ ONE (17:00)
--- NOTE | 2018-10-16 18:09 | P.PN ---
Subjective Interval history: ALERT OCCASIONAL CHILLS NAD Physical Exam Vital signs: Vital Signs 10/15/18 20:00 10/15/18 21:00 10/16/18 00:00 Temperature 99.5 F Pulse Rate 81 Respiratory Rate 20 18 Blood Pressure 126/67 Pulse Oximetry 96 96 10/16/18 01:00 10/16/18 03:59 10/16/18 05:00 Temperature 98.7 F 98.6 F Pulse Rate 78 75 Respiratory Rate 20 17 18 Blood Pressure 128/68 122/67 Pulse Oximetry 95 96 10/16/18 08:15 10/16/18 12:50 10/16/18 13:15 Temperature 98.6 F 97.9 F Pulse Rate 77 67 Respiratory Rate 20 20 Blood Pressure 119/58 L 113/66 Pulse Oximetry 99 96 96 Intake & Output 10/15/18 10/16/18 10/16/18 18:59 06:59 18:59 Intake Total 2600 / 2600 1290 / 1290 1200 / 1200 Output Total 1400 / 1400 900 / 900 875 / 875 Balance 1200 / 1200 390 / 390 325 / 325 Weight 90 kg Intake: IV 600 / 600 1230 / 1230 1200 / 1200 NS Inj 1,000 ML @ 84 mls/hr IV. 500 / 500 1000 / 1000 CONT .[id number] [facility] Rx#:[id number] Maxipime Inj 2,000 MG In NS Inj 100 / 100 200 / 200 100 / 100 100 ML @ 200 mls/hr IV.SIG Q8H [facility] Rx#:[id number] Diflucan 200 mg Premix Bag 100 100 / 100 ML @ 100 mls/hr IV.SIG Q24H [facility] Rx#:[id number] Vancomycin Inj 1,500 MG In NS 1030 / 1030 Inj 500 ML @ 257.5 mls/hr IV. SIG Q12H [facility] Rx#:[id number] Oral 1500 / 1500 60 / 60 Anesthesia Amount 500 / 500 Output: Urine 1400 / 1400 900 / 900 875 / 875 Other: Date of Last Bowel Movement 10/09/18 Narrative: GENERAL: Well-nourished well-developed, not in acute distress SKIN: Cool and dry, no generalized rash HEAD: Atraumatic. Normocephalic. No temporal or scalp tenderness. EYES: Pupils equal round and reactive. Scleral icterus. No injection or drainage. No petechia ENT: Nothing abnormal detected NECK: Trachea midline. Supple, nontender, no meningeal signs. CARDIOVASCULAR: HS audible. RESPIRATORY: Clear to auscultation bilaterally. GASTROINTESTINAL: Abdomen soft nontender. MUSCULOSKELETAL: Extremities without clubbing, cyanosis. NEUROLOGICAL: Alert oriented 3. Nonfocal. Ommaya reservoir no evidence of infection. Psych cooperative IV line sites ok. Results - Labs CBC & Chem 7: 10/16/18 09:58 10/14/18 11:52 Laboratory Results - last 24 hr 10/13/18 10/16/18 10/16/18 16:30 02:20 09:58 WBC 1.2 L RBC 2.60 L Hgb 8.1 L Hct 25.2 L MCV 96.8 MCH 31.2 MCHC 32.2 RDW 16.8 Plt Count 109 L MPV 9.3 Prelim Diff (Auto) Manual diff required WBC Differential Manual diff final Seg Neuts % (Manual) 8 L Band Neuts % (Manual) 6 Lymphocytes % (Manual) 22 Monocytes % (Manual) 31 H Eosinophils % (Manual) 32 H Metamyelocytes % (Man) 1 Abs Neuts (Manual) 0.2 L* Differential Comment . Platelet Estimate Low L Platelet Morphology Normal Ovalocytes 1+ H Vancomycin Trough 18.8 H Absolute Lymphocytes 250 L % CD3 Cells 71 Absolute CD3 Count 178 L % CD3-/CD16+/CD56+ 22 Abs CD3-/CD16+/CD56+ 55 L % CD4 Cells 3 L Absolute CD4 Count Less than 20 L T-Help/Suppress Ratio 0.10 L % CD8 Cells 67 H Absolute CD8 Count 166 L % CD19 Cells 5 L Absolute CD19 Count Less than 20 L Microbiology 10/15/18 11:18 Bronchial - Bronchial Gram Stain - Final 10/15/18 11:18 Bronchial - Bronchial Bronchial Culture - Preliminary No growth in 24 hours 10/15/18 11:18 Bronchial Washings - Bronchial Fungal Smear - Final No fungal elements seen 10/12/18 19:15 Blood - Peripheral Aerobic Blood Culture - Preliminary No growth in 4 days 10/12/18 19:15 Blood - Peripheral Anaerobic Blood Culture - Preliminary No growth in 4 days 10/12/18 19:10 Blood - Peripheral Aerobic Blood Culture - Preliminary No growth in 4 days 10/12/18 19:10 Blood - Peripheral Anaerobic Blood Culture - Preliminary No growth in 4 days Assessment and Plan - Plan RESPIRATORY FAILURE PNA +HIV PLAN O2 NEEDED ANTIBX PER ID
[2018-10-16] MEDS: Enoxaparin Inj 40 MG/0.4 ML Syringe SQ SCH (22:47)
[2018-10-16] MEDS: Temazepam 15 MG Capsule PO PRN (22:49)
[2018-10-17] MEDS: Vancomycin Inj 1,500 MG in Sodium Chlor 0.9% Inj 500 ML IV.SIG SCH ×2 (03:00→15:13)
[2018-10-17] MEDS: Chlorhexidine Gluconate 2% 1 Pack (2 Cloths) TOPICAL SCH (05:59)
[2018-10-17] MEDS: Clotrimazole 10 MG Troche BUCCAL SCH ×5 (07:31→23:08)
[2018-10-17 08:02] LABS: Glomerular Filtration Rate Greater Than 89 mL/min (>89)
[2018-10-17] MEDS: Sod Chloride 0.9% Inj 1,000 ML IV.CONT SCH ×2 (09:58→23:04)
[2018-10-17] MEDS: RIFABUTIN 150 MG PO SCH (09:59)
[2018-10-17] MEDS: Senna/Docusate Sodium 8.6/50 MG Tablet PO SCH ×2 (10:00→23:04)
--- NOTE | 2018-10-17 10:56 | P.PNIM ---
Subjective Interval history: Follow-up shortness of breath, pneumonia, HIV/AIDS, dysphagia , AK I and thrombocytopenia. Patient seen and examined sitting on the bed, nurse in the room. Patient stated he did not have any bowel movement yet for 1 week, denies any abdominal discomfort, abdominal pain, bloating feeling, nausea or vomiting. Nurse reported patient has been refusing stool softeners for a few days and today. Patient encouraged to get the laxative today and will have enema later today if no bowel movement. Patient encouraged to take the stool softeners. Patient stated he is taking a different stool softener at home, a tablet, stated he just want to take that and he will go right away. Patient denies any nausea or vomiting associated with it. Patient stated he is passing gas. Patient denies any impaction at this time. Patient denies any headache or dizziness, denies any fever however complains of some chills at night. Physical Exam Vital signs: Vital Signs 10/16/18 12:50 10/16/18 13:15 10/16/18 16:50 Temperature 97.9 F 98.0 F Pulse Rate 67 79 Respiratory Rate 20 20 Blood Pressure 113/66 128/77 Pulse Oximetry 96 96 98 10/16/18 20:00 10/17/18 00:00 10/17/18 04:00 Temperature 99.8 F H 99.5 F 98.8 F Pulse Rate 88 86 82 Respiratory Rate 18 16 18 Blood Pressure 108/57 L 110/55 L 110/63 Pulse Oximetry 97 98 96 10/17/18 08:10 Temperature 98.9 F Pulse Rate 84 Respiratory Rate 18 Blood Pressure 118/59 L Pulse Oximetry 97 Intake & Output 10/16/18 10/17/18 10/17/18 18:59 06:59 18:59 Intake Total 1815 / 1815 915 / 915 800 / 800 Output Total 875 / 875 Balance 940 / 940 915 / 915 800 / 800 Weight 90 kg Intake: IV 1815 / 1815 915 / 915 800 / 800 NS Inj 1,000 ML @ 84 mls/hr IV. 1000 / 1000 200 / 200 800 / 800 CONT .[id number] [facility] Rx#:[id number] Maxipime Inj 2,000 MG In NS Inj 100 / 100 200 / 200 100 ML @ 200 mls/hr IV.SIG Q8H [facility] Rx#:[id number] Diflucan 200 mg Premix Bag 100 200 / 200 ML @ 100 mls/hr IV.SIG Q24H [facility] Rx#:[id number] Vancomycin Inj 1,500 MG In NS 515 / 515 515 / 515 Inj 500 ML @ 257.5 mls/hr IV. SIG Q12H [facility] Rx#:[id number] Output: Urine 875 / 875 Other: # Voids 2 2 Narrative: GENERAL: Well-developed, well-nourished, -[place] male in no acute distress SKIN: Warm and dry. HEAD: Atraumatic. Normocephalic. EYES: Pupils equal and round. No scleral icterus. No injection or drainage. ENT: No nasal bleeding or discharge. Mucous membranes pink and moist. NECK: Trachea midline. No JVD. CARDIOVASCULAR: Regular rate and rhythm. RESPIRATORY: No accessory muscle use. Clear to auscultation. Breath sounds equal bilaterally. GASTROINTESTINAL: Abdomen soft, non-tender, nondistended. Hepatic and splenic margins not palpable. MUSCULOSKELETAL: Extremities without clubbing, cyanosis, or edema. No obvious deformities. NEUROLOGICAL: Awake and alert. No obvious cranial nerve deficits. Motor grossly within normal limits. Five out of 5 muscle strength in the arms and legs. Normal speech. PSYCHIATRIC: Flat mood and affect; insight and judgment poor. Results Labs CBC & Chem 7: 10/17/18 06:54 10/17/18 06:54 Labs: Microbiology 10/15/18 11:18 Bronchial - Bronchial Gram Stain - Final 10/15/18 11:18 Bronchial - Bronchial Bronchial Culture - Preliminary No growth in 24 hours 10/15/18 11:18 Bronchial Washings - Bronchial Fungal Smear - Final No fungal elements seen 10/12/18 19:15 Blood - Peripheral Aerobic Blood Culture - Preliminary No growth in 4 days 10/12/18 19:15 Blood - Peripheral Anaerobic Blood Culture - Preliminary No growth in 4 days 10/12/18 19:10 Blood - Peripheral Aerobic Blood Culture - Preliminary No growth in 4 days 10/12/18 19:10 Blood - Peripheral Anaerobic Blood Culture - Preliminary No growth in 4 days Assessment and Plan (1) [facility] esophagitis: Code(s): B37.81 - Candidal esophagitis Status: Acute (2) HIV (human immunodeficiency virus infection): Code(s): B20 - Human immunodeficiency virus [HIV] disease Status: Chronic Plan This is a 43-year-old male with history of HIV presenting to the hospital with cough, congestion, sore throat and fever Pneumonia HIV/ AIDS CD4 less than 20 Neutropenia Rule out Pneumocystis carinii pneumonia. - chest x-ray normal - CT chest showed mild patchy airspace consolidation in both lower lobes, right greater than the left with nodular airspace opacities bilaterally. -Toxoplasma IgM antibody negative, hepatitis serology nonreactive, gonorrhea PCR negative, RPR negative. -Pulmonary following, appreciate assistance: status post bronchoscopy to rule out PCP, follow results -GI following, appreciate assistance: Status post EGD with normal findings, GI signed off -ID following, Dr. Morrissey, appreciate assistance. Continue cefepime and vancomycin IV, discontinued Bactrim, started on rifabutin and a dose of Neupogen. May consider Pintamidine for PCP -Follow-up AFB culture, fungus blood culture, lymphocyte profile, cryptococcal antigen, coccidiomycosis antibodies, toxoplasmosis antibodies, G6PD status., GC Chlamydia PCR, and RPR -follow CBC Dysphagia - r/o maryana esophagitis, -history of esophagitis from [facility] 2 years ago -GI following, EGD with normal findings, GI signed off - supportive management -continue clotrimazole ravi - Fluconazole per ID Chest pain - likely secondary to pneumonia vs esophagitis -EKG within normal limits - Serial troponin negative, -D-dimer negative Acute kidney injury -likely due to Dehydration - Resolved. Thrombocytopenia -Due to above, stable GI Prophylaxis : on protonix, stool softeners and laxative DVT prophylaxis: Lovenox patient was seen and examined today. I attest that I had a face to face encounter with the patient today and personally performed the history, physical exam and medical decision making. patient with no acute distress. bilateral air entry present on lung exam. no pedal edema. abdomen is soft. continue with IV antibiotics- ID and pulmonary following. follow the bronch studies. case was d/w the midlevel ( Ms. vamsi Giordano) and agreed with the plan. Progress Note: Quality VTE Deep Vein Thrombosis/Pulmonary Embolism Present on Admission: No _ (1) HIV (human immunodeficiency virus infection) Qualifiers: HIV symptom status:
[2018-10-17] MEDS ORDERED: Mineral Oil Enema 118 ML Bottle RECTAL PRN (11:25)
[2018-10-17 11:30] LABS: Hemoglobin 8.1 gm/dL (13.0-17.0); Mean Corpuscular HGB Conc 32.3 % (32.0-36.0); Mean Corpuscular Hemoglobin 31.4 pg (27.0-34.0); Mean Corpuscular Volume 97.4 fL (80.0-100.0); Mean Platelet Volume 9.6 fL (7.0-11.0); Platelet Count 109 th/mm3 (150-450); Red Blood Count 2.57 mil/mm3 (4.50-5.90); Red Cell Distribution Width 17.4 % (11.6-17.2); White Blood Count 1.7 th/mm3 (4.0-11.0)
[2018-10-17 12:20] LABS: Eosinophils 21 % (0-4); Lymphocytes 19 % (9-44); Monocytes 29 % (0-8)
[2018-10-17 12:25] LABS: Ovalocytes 1+; Platelet Morphology Normal (Normal)
--- NOTE | 2018-10-17 16:58 | P.PN ---
Subjective Interval history: ALERT NAD Physical Exam Vital signs: Vital Signs 10/16/18 20:00 10/17/18 00:00 10/17/18 04:00 Temperature 99.8 F H 99.5 F 98.8 F Pulse Rate 88 86 82 Respiratory Rate 18 16 18 Blood Pressure 108/57 L 110/55 L 110/63 Pulse Oximetry 97 98 96 10/17/18 08:10 10/17/18 12:45 10/17/18 15:00 Temperature 98.9 F 99.0 F 99.1 F Pulse Rate 84 82 80 Respiratory Rate 18 20 20 Blood Pressure 118/59 L 112/63 120/69 Pulse Oximetry 97 99 99 Intake & Output 10/16/18 10/17/18 10/17/18 18:59 06:59 18:59 Intake Total 1815 / 1815 915 / 915 900 / 900 Output Total 875 / 875 Balance 940 / 940 915 / 915 900 / 900 Weight 90 kg Intake: IV 1815 / 1815 915 / 915 900 / 900 NS Inj 1,000 ML @ 84 mls/hr IV. 1000 / 1000 200 / 200 800 / 800 CONT .[id number] [facility] Rx#:[id number] Maxipime Inj 2,000 MG In NS Inj 100 / 100 200 / 200 100 / 100 100 ML @ 200 mls/hr IV.SIG Q8H [facility] Rx#:[id number] Diflucan 200 mg Premix Bag 100 200 / 200 ML @ 100 mls/hr IV.SIG Q24H [facility] Rx#:[id number] Vancomycin Inj 1,500 MG In NS 515 / 515 515 / 515 Inj 500 ML @ 257.5 mls/hr IV. SIG Q12H [facility] Rx#:[id number] Output: Urine 875 / 875 Other: # Voids 2 2 Narrative: GENERAL: Well-nourished well-developed, not in acute distress SKIN: Cool and dry, no generalized rash HEAD: Atraumatic. Normocephalic. No temporal or scalp tenderness. EYES: Pupils equal round and reactive. Scleral icterus. No injection or drainage. No petechia ENT: Nothing abnormal detected NECK: Trachea midline. Supple, nontender, no meningeal signs. CARDIOVASCULAR: HS audible. RESPIRATORY: Clear to auscultation bilaterally. GASTROINTESTINAL: Abdomen soft nontender. MUSCULOSKELETAL: Extremities without clubbing, cyanosis. NEUROLOGICAL: Alert oriented 3. Nonfocal. Ommaya reservoir no evidence of infection. Psych cooperative IV line sites ok. Results - Labs CBC & Chem 7: 10/17/18 06:54 10/17/18 06:54 Laboratory Results - last 24 hr 10/13/18 10/17/18 10/17/18 16:30 06:54 06:54 WBC 1.7 L RBC 2.57 L Hgb 8.1 L Hct 25.0 L MCV 97.4 MCH 31.4 MCHC 32.3 RDW 17.4 H Plt Count 109 L MPV 9.6 Prelim Diff (Auto) Manual diff required WBC Differential Manual diff final Seg Neuts % (Manual) 21 Band Neuts % (Manual) 10 H Lymphocytes % (Manual) 19 Monocytes % (Manual) 29 H Eosinophils % (Manual) 21 H Abs Neuts (Manual) 0.5 L* Differential Comment . Platelet Estimate Low L Platelet Morphology Normal Ovalocytes 1+ H Creatinine 1.00 Estimated GFR Greater than 89 Toxoplasma IgG Ab <7.20 Microbiology 10/15/18 11:18 Bronchial - Bronchial Gram Stain - Final 10/15/18 11:18 Bronchial - Bronchial Bronchial Culture - Final Rare growth normal respiratory rosita 10/12/18 19:15 Blood - Peripheral Aerobic Blood Culture - Final No growth in 5 days 10/12/18 19:15 Blood - Peripheral Anaerobic Blood Culture - Final No growth in 5 days 10/12/18 19:10 Blood - Peripheral Aerobic Blood Culture - Final No growth in 5 days 10/12/18 19:10 Blood - Peripheral Anaerobic Blood Culture - Final No growth in 5 days Assessment and Plan - Plan RESPIRATORY FAILURE PNA +HIV PLAN O2 NEEDED ANTIBX PER ID
[2018-10-17] MEDS: Temazepam 15 MG Capsule PO PRN (23:04)
[2018-10-17] MEDS: Enoxaparin Inj 40 MG/0.4 ML Syringe SQ SCH (23:08)
[2018-10-18] MEDS: Vancomycin Inj 1,500 MG in Sodium Chlor 0.9% Inj 500 ML IV.SIG SCH (03:57)
[2018-10-18] MEDS: Clotrimazole 10 MG Troche BUCCAL SCH ×5 (05:48→22:08)
[2018-10-18 08:53] LABS: Hematocrit 26.3 % (39.0-51.0); Hemoglobin 8.6 gm/dL (13.0-17.0); Mean Corpuscular HGB Conc 32.6 % (32.0-36.0); Mean Corpuscular Hemoglobin 31.3 pg (27.0-34.0); Mean Corpuscular Volume 95.9 fL (80.0-100.0); Mean Platelet Volume 8.3 fL (7.0-11.0); Platelet Count 95 th/mm3 (150-450); Red Blood Count 2.74 mil/mm3 (4.50-5.90); Red Cell Distribution Width 16.8 % (11.6-17.2); White Blood Count 2.4 th/mm3 (4.0-11.0)
[2018-10-18] MEDS: Senna/Docusate Sodium 8.6/50 MG Tablet PO SCH ×2 (09:07→22:09)
[2018-10-18] MEDS: RIFABUTIN 150 MG PO SCH (09:09)
[2018-10-18] MEDS: Sod Chloride 0.9% Inj 1,000 ML IV.CONT SCH ×2 (09:11→23:19)
[2018-10-18 09:12] LABS: Albumin 2.7 g/dL (3.4-5.0); Anion Gap 7 meq/L (5-15); Aspartate Aminotransferase 38 U/L (15-37); Blood Urea Nitrogen 7 mg/dL (7-18); Calcium 8.3 mg/dL (8.5-10.1); Chloride 108 meq/L (98-107); Glomerular Filtration Rate Greater Than 89 mL/min (>89); Glucose,Random 89 mg/dL (74-106); Sodium 144 meq/L (136-145)
[2018-10-18 09:13] LABS: Alanine Aminotransferase 21 U/L (12-78)
[2018-10-18 09:16] LABS: Alkaline Phosphatase 74 U/L (45-117); Total Protein 6.1 g/dL (6.4-8.2)
[2018-10-18 09:33] LABS: Eosinophils 18 % (0-4); Lymphocytes 26 % (9-44); Metamyelocytes 1 % (0-1); Monocytes 21 % (0-8); Platelet Morphology Normal (Normal)
[2018-10-18 09:34] LABS: Ovalocytes 1+
--- NOTE | 2018-10-18 13:35 | P.PNIM ---
Subjective Interval history: Follow-up shortness of breath, pneumonia, HIV/AIDS, dysphagia , GENO and thrombocytopenia. Patient seen and examined sitting on his bed, patient stated wanted to go home. Patient denies any fever or chills. Patient denies any dysphagia, stated tolerating food well. Patient stated had a good bowel movement yesterday. Denies any nausea or vomiting, denies any diarrhea or constipation. Physical Exam Vital signs: Vital Signs 10/17/18 15:00 10/17/18 20:00 10/18/18 00:00 Temperature 99.1 F 98.4 F 98.2 F Pulse Rate 80 68 68 Respiratory Rate 20 18 16 Blood Pressure 120/69 119/75 109/56 L Pulse Oximetry 99 99 97 10/18/18 04:00 10/18/18 07:53 10/18/18 12:00 Temperature 97.6 F 98.2 F 98.1 F Pulse Rate 66 71 67 Respiratory Rate 18 20 20 Blood Pressure 102/59 L 145/68 H 121/81 Pulse Oximetry 99 98 98 Intake & Output 10/17/18 10/18/18 10/18/18 18:59 06:59 18:59 Intake Total 1515 / 1515 200 / 200 515 / 515 Balance 1515 / 1515 200 / 200 515 / 515 Weight 90 kg Intake: IV 1515 / 1515 200 / 200 515 / 515 NS Inj 1,000 ML @ 84 mls/hr IV. 800 / 800 CONT .[id number] [facility] Rx#:[id number] Maxipime Inj 2,000 MG In NS Inj 100 / 100 200 / 200 100 ML @ 200 mls/hr IV.SIG Q8H [facility] Rx#:[id number] Diflucan 200 mg Premix Bag 100 100 / 100 ML @ 100 mls/hr IV.SIG Q24H [facility] Rx#:[id number] Vancomycin Inj 1,500 MG In NS 515 / 515 515 / 515 Inj 500 ML @ 257.5 mls/hr IV. SIG Q12H [facility] Rx#:[id number] Other: # Voids 2 Date of Last Bowel Movement 10/17/18 10/17/18 10/17/18 Narrative: GENERAL: Well-developed, well-nourished, -[place] male in no acute distress SKIN: Warm and dry. HEAD: Atraumatic. Normocephalic. EYES: Pupils equal and round. No scleral icterus. No injection or drainage. ENT: No nasal bleeding or discharge. Mucous membranes pink and moist. NECK: Trachea midline. No JVD. CARDIOVASCULAR: Regular rate and rhythm. RESPIRATORY: No accessory muscle use. Clear to auscultation. Breath sounds equal bilaterally. GASTROINTESTINAL: Abdomen soft, non-tender, nondistended. Hepatic and splenic margins not palpable. MUSCULOSKELETAL: Extremities without clubbing, cyanosis, or edema. No obvious deformities. NEUROLOGICAL: Awake and alert. No obvious cranial nerve deficits. Motor grossly within normal limits. Five out of 5 muscle strength in the arms and legs. Normal speech. PSYCHIATRIC: Flat mood and affect; insight and judgment poor. Results Labs CBC & Chem 7: 10/18/18 08:06 10/18/18 08:06 Labs: Microbiology 10/15/18 11:18 Bronchial - Bronchial Gram Stain - Final 10/15/18 11:18 Bronchial - Bronchial Bronchial Culture - Final Rare growth normal respiratory rosita 10/12/18 19:15 Blood - Peripheral Aerobic Blood Culture - Final No growth in 5 days 10/12/18 19:15 Blood - Peripheral Anaerobic Blood Culture - Final No growth in 5 days 10/12/18 19:10 Blood - Peripheral Aerobic Blood Culture - Final No growth in 5 days 10/12/18 19:10 Blood - Peripheral Anaerobic Blood Culture - Final No growth in 5 days Assessment and Plan (1) Mary[place] esophagitis: Code(s): B37.81 - Candidal esophagitis Status: Acute (2) HIV (human immunodeficiency virus infection): Code(s): B20 - Human immunodeficiency virus [HIV] disease Status: Chronic Plan This is a 43-year-old male with history of HIV presenting to the hospital with cough, congestion, sore throat and fever Pneumonia HIV/ AIDS CD4 less than 20 Neutropenia Rule out Pneumocystis carinii pneumonia. - chest x-ray normal - CT chest showed mild patchy airspace consolidation in both lower lobes, right greater than the left with nodular airspace opacities bilaterally. -Toxoplasma IgM antibody negative, hepatitis serology nonreactive, gonorrhea PCR negative, RPR negative. -Pulmonary following, appreciate assistance: status post bronchoscopy to rule out PCP, follow results -GI following, appreciate assistance: Status post EGD with normal findings, GI signed off -ID following, discussed with Dr. Daives plan to change antibiotic to p.o Augmentin x 5 days, Diflucan and Rifabutin x 1 month, to follow up with HIV care provider to determine continuation of doses. Pentamidine Prophylaxis for PCP today. No further dose needed. Check labs CBC and CMP every 2 weeks (RX printed and in the chart) -S/p IV cefepime and Vanco -Follow-up AFB culture, fungus blood culture, lymphocyte profile, cryptococcal antigen, coccidiomycosis antibodies, toxoplasmosis antibodies, G6PD status., GC Chlamydia PCR, and RPR -Bronchial gram stain/culture: rare growth normal respiratory Rosita -Bronchial Fungal Smear no fungal elements see, Culture: pending, follow results -Bronchial washing Acid fast bacilli Smear/Mycobacterial culture: pending, follow results Dysphagia - r/o maryana esophagitis, -history of esophagitis from [facility] 2 years ago -GI following, EGD with normal findings, GI signed off - supportive management -continue clotrimazole ravi - continue Fluconazole per ID Chest pain - likely secondary to pneumonia vs esophagitis -EKG within normal limits - Serial troponin negative, -D-dimer negative Acute kidney injury -likely due to Dehydration - Resolved. Thrombocytopenia -Due to above, stable GI Prophylaxis : on protonix, stool softeners and laxative DVT prophylaxis: Lovenox Progress Note: Quality VTE Deep Vein Thrombosis/Pulmonary Embolism Present on Admission: No _ (1) HIV (human immunodeficiency virus infection) Qualifiers: HIV symptom status:
--- NOTE | 2018-10-18 14:05 | P.PNID ---
Subjective Remarks: ID coverage. Mr. Beebe is a 43-year-old -Iranian male with known history of HIV AIDS with last CD4 count less than 20. Patient reports that he has not been compliant with his medications due to side effects. He was not able to provide me the name of his HIV care provider. 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 Patient reports history of recurrent pneumonias for which he has been admitted or presented to the hospital at least 6 times in the last 1 year. He also reports history of EGD for difficulty swallowing and being diagnosed with Dara esophagitis. He reports that he stopped taking his Diflucan approximately 2 months back. He now presents with a history feeling ill since 4 -5 days prior to this admission. He reports cough, congestion, sore throat and fever. He reports subjective fevers but he has not recorded any temperatures at home. He reports having nausea followed by vomiting and having 3 episodes of vomiting even on the day of admission. He denies any diarrhea. He reports difficulty swallowing. He reports that he suffers from chronic constipation. His last BM was 2 days prior to admission. Patient reports chest pain in the center of his chest feeling of tightening sensation. He reports rhinorrhea as well as cough productive of yellowish sputum. He denies any hemoptysis. Endorses generalized weakness. During his past admission patient signed off AMA while being treated for Dara esophagitis. Infectious diseases consulted for evaluation and fever in a patient with HIV. Patient underwent bronchoscopy. No complaints. Afebrile. Reports itching Eosinophils high on CBC. Breathing improved Able to eat meals, eating crispy fried chicken tenders. Antibiotics: Azithro Cefepime IV Lines: Lines ok Past Medical History: Medical History: Medical History (Last Reviewed 10/13/18 @ 08:01 by Braulio Stack) HIV (human immunodeficiency virus infection) Lymphoma Surgical History: Surgical History (Last Reviewed 10/13/18 @ 08:01 by Braulio Stack) Status post chemotherapy No history of previous surgery Allergies/Adverse Reactions: Allergies albuterol Allergy (Intermediate, Verified 03/15/18 16:58) Hives shortness of breath azithromycin Allergy (Verified 07/08/18 19:59) Hives Objective Vital Signs 10/17/18 15:00 10/17/18 20:00 10/18/18 00:00 Temperature 99.1 F 98.4 F 98.2 F Pulse Rate 80 68 68 Respiratory Rate 20 18 16 Blood Pressure 120/69 119/75 109/56 L Pulse Oximetry 99 99 97 10/18/18 04:00 10/18/18 07:53 10/18/18 12:00 Temperature 97.6 F 98.2 F 98.1 F Pulse Rate 66 71 67 Respiratory Rate 18 20 20 Blood Pressure 102/59 L 145/68 H 121/81 Pulse Oximetry 99 98 98 Intake & Output 10/17/18 10/18/18 10/18/18 18:59 06:59 18:59 Intake Total 1515 / 1515 200 / 200 515 / 515 Balance 1515 / 1515 200 / 200 515 / 515 Weight 90 kg Intake: IV 1515 / 1515 200 / 200 515 / 515 NS Inj 1,000 ML @ 84 mls/hr IV. 800 / 800 CONT .[id number] MENDOZA Rx#:[id number] Maxipime Inj 2,000 MG In NS Inj 100 / 100 200 / 200 100 ML @ 200 mls/hr IV.SIG Q8H MENDOZA Rx#:[id number] Diflucan 200 mg Premix Bag 100 100 / 100 ML @ 100 mls/hr IV.SIG Q24H MENDOZA Rx#:[id number] Vancomycin Inj 1,500 MG In NS 515 / 515 515 / 515 Inj 500 ML @ 257.5 mls/hr IV. SIG Q12H MENDOZA Rx#:[id number] Other: # Voids 2 Date of Last Bowel Movement 10/17/18 10/17/18 10/17/18 10/15/18 11:18 Bronchial - Bronchial Gram Stain - Final 10/15/18 11:18 Bronchial - Bronchial Bronchial Culture - Final Rare growth normal respiratory rosita 10/12/18 19:15 Blood - Peripheral Aerobic Blood Culture - Final No growth in 5 days 10/12/18 19:15 Blood - Peripheral Anaerobic Blood Culture - Final No growth in 5 days 10/12/18 19:10 Blood - Peripheral Aerobic Blood Culture - Final No growth in 5 days 10/12/18 19:10 Blood - Peripheral Anaerobic Blood Culture - Final No growth in 5 days 10/15/18 11:18 Bronchial Washings - Bronchial Fungal Smear - Final No fungal elements seen 10/15/18 11:18 Bronchial Washings - Bronchial Fungal Culture - Pending 10/15/18 11:18 Bronchial Washings - Bronchial Acid Fast Bacilli Smear - Pending 10/15/18 11:18 Bronchial Washings - Bronchial Mycobacterial Culture - Pending Lab - Hematology Results 10/17/18 10/18/18 06:54 08:06 WBC 1.7 L 2.4 L RBC 2.57 L 2.74 L Hgb 8.1 L 8.6 L Hct 25.0 L 26.3 L MCV 97.4 95.9 MCH 31.4 31.3 MCHC 32.3 32.6 RDW 17.4 H 16.8 Plt Count 109 L 95 L MPV 9.6 8.3 Prelim Diff (Auto) Manual diff required Manual diff required WBC Differential Manual diff final Manual diff final Seg Neuts % (Manual) 21 17 Band Neuts % (Manual) 10 H 16 H Lymphocytes % (Manual) 19 26 Monocytes % (Manual) 29 H 21 H Eosinophils % (Manual) 21 H 18 H Basophils % (Manual) 1 Metamyelocytes % (Man) 1 Abs Neuts (Manual) 0.5 L* 0.8 L Differential Comment . . Platelet Estimate Low L Low L Platelet Morphology Normal Normal Ovalocytes 1+ H 1+ H Lab - Chemistry Results 10/17/18 10/18/18 06:54 08:06 Sodium 144 Potassium 4.0 Chloride 108 H Carbon Dioxide 29.0 Anion Gap 7 BUN 7 Creatinine 1.00 0.72 Estimated GFR Greater than 89 Greater than 89 Random Glucose 89 Calcium 8.3 L Total Bilirubin 0.2 AST 38 H ALT 21 Alkaline Phosphatase 74 Total Protein 6.1 L Albumin 2.7 L Imaging: ITS Impressions Chest X-Ray 10/12/18 19:07 CONCLUSION: The lungs are clear. Head CT 10/12/18 20:07 CONCLUSION: 1. No acute intracranial abnormalities. Right frontal ventriculostomy. Partial opacification right ethmoid air cells. . Chest CT 10/13/18 16:02 CONCLUSION: 1. Mild patchy airspace consolidation in both lower lobes, right greater than left. The imaging features are characteristic of an infectious or inflammatory process. 2. There are multiple nodular airspace opacities bilaterally measuring up to 9 mm that likely represent the acute infectious or inflammatory process. These are new compared to the prior study from one year ago. Recommend follow-up chest CT after appropriate therapy to confirm resolution of these nodules. Physical Exam: GENERAL: Alert and oriented, no acute distress. HEENT: Head atraumatic. Pupils reactive to light. Extraocular movements intact. No icterus. No conjunctival erythema. Oropharynx mucosa moist. NECK: Supple without adenopathy. No swelling. LUNGS: Decreased clear breath sounds. HEART: Regular S1 and S2. ABDOMEN: Bowel sounds present, soft, no tenderness appreciated. EXTREMITIES: No clubbing cyanosis or edema. SKIN: No diffuse rash. NEUROLOGIC: Nonfocal. PSYCH: Calm and cooperative. Assessment and Plan - Plan HIV AIDS CD4 less than 20 history of shortness of breath, respiratory symptoms chest x-ray normal rule out PCP. History of recurrent pneumonia Dysphagia: Likely due to Dara esophagitis. History of Dara esophagitis status post EGD History of azithromycin allergy with hives Markedly decreased white count probably exacerbated by Bactrim. Recommendation Discontinue Cefepime IV Start Augmentin oral for 5 more days. Continue Diflucan oral for C.esophagitis. Pentamidine prophylaxis for PCP today. No further doses needed. Follow G6PD status to decide outpatient PCP prophylaxis. Explained to patient importance of HIV follow up. He thinks he will start HAART as outpatient and promises to follow up. Rifabutin (150 mg x 2 tabs) i.e. 300 mg p.o. daily for 1 month. Continuation beyond only recommended by HIV care provider. Dw Primary team needs HIV follow up as outpatient. Patient needs follow up with PCP recommend [facility] follow up in the interim. Augmentin, Diflucan and Rifabutin script by primary MD in am prior to discharge. Will sign off please call back if any change in clinical condition or questions.
--- NOTE | 2018-10-18 14:23 | P.DCO ---
Diagnosis (1) Dara esophagitis: Status: Acute (2) HIV (human immunodeficiency virus infection): Status: Chronic Physical Therapy Order: Evaluate and treat, Improve ambulation and Strength and gait training Home Health Nursing Order: Medical education, Signs/symptoms of disease process, Medication education-adverse effect and Nursing assessment with vital signs Legal Project Manager Order: To evaluate: Living conditions/environment Case Management Consult Case Management Consult-Home Health: Yes I have seen patient Bharathi Beebe on 10/18/18. My clinical findings support the need for the requested home health care services because: I certify that my clinical findings support that this patient is homebound because: _ (1) HIV (human immunodeficiency virus infection) Qualifiers: HIV symptom status:
[2018-10-18] MEDS: Amoxicillin/Clavulanate 875/125 MG Tablet PO SCH ×2 (15:20→22:08)
[2018-10-18 16:16] LABS: Cocci Immunodiffusion IgG Negative (Negative); Cryptococcus Ag Screen Negative (Negative)
--- NOTE | 2018-10-18 18:36 | P.PNPL ---
Subjective Interval history: 43 YOAA male with HIV, bilat infilt had Bronch lot of thick mucous plugs removed No Fever BAL AFB,Fungal smear negative PCP Neg Physical Exam Vital signs: Vital Signs 10/17/18 20:00 10/18/18 00:00 10/18/18 04:00 Temperature 98.4 F 98.2 F 97.6 F Pulse Rate 68 68 66 Respiratory Rate 18 16 18 Blood Pressure 119/75 109/56 L 102/59 L Pulse Oximetry 99 97 99 10/18/18 07:53 10/18/18 12:00 10/18/18 16:05 Temperature 98.2 F 98.1 F Pulse Rate 71 67 66 Respiratory Rate 20 20 18 Blood Pressure 145/68 H 121/81 Pulse Oximetry 98 98 10/18/18 16:20 Temperature 98.7 F Pulse Rate 67 Respiratory Rate 20 Blood Pressure 127/81 Pulse Oximetry 97 Intake & Output 10/17/18 10/18/18 10/18/18 18:59 06:59 18:59 Intake Total 1515 / 1515 200 / 200 1335 / 1335 Balance 1515 / 1515 200 / 200 1335 / 1335 Weight 90 kg Intake: IV 1515 / 1515 200 / 200 615 / 615 NS Inj 1,000 ML @ 84 mls/hr IV. 800 / 800 CONT .[id number] MENDOZA Rx#:[id number] Maxipime Inj 2,000 MG In NS Inj 100 / 100 200 / 200 100 / 100 100 ML @ 200 mls/hr IV.SIG Q8H MENDOZA Rx#:[id number] Diflucan 200 mg Premix Bag 100 100 / 100 ML @ 100 mls/hr IV.SIG Q24H MENDOZA Rx#:[id number] Vancomycin Inj 1,500 MG In NS 515 / 515 515 / 515 Inj 500 ML @ 257.5 mls/hr IV. SIG Q12H MENDOZA Rx#:[id number] Oral 720 / 720 Other: # Voids 2 4 Date of Last Bowel Movement 10/17/18 10/17/18 10/17/18 GENERAL: WBWN AA male, NAD SKIN: Warm and dry. HEAD: Normocephalic. EYES: No scleral icterus. No injection or drainage. NECK: Supple, trachea midline. No JVD or lymphadenopathy. CARDIOVASCULAR: Regular rate and rhythm without murmurs, gallops, or rubs. RESPIRATORY: Breath sounds equal bilaterally. No accessory muscle use. GASTROINTESTINAL: Abdomen soft, non-tender, nondistended. MUSCULOSKELETAL: No cyanosis, or edema. BACK: Nontender without obvious deformity. No CVA tenderness. Assessment and Plan - Plan IMPRESSION: 1. Bilateral patchy infiltrate. Need to rule out possibility of Pneumocystis pneumonia or other opportunistic pneumonia. 2. Human immunodeficiency virus disease. 3. History of Burkitt lymphoma. 4. Dysphagia/odynophagia. PLAN: Mucomyst Nebs Mucinex bid Acapella Aerosol nebs Abx per ID
[2018-10-18] MEDS: guaiFENesin 600 MG ER Tablet PO SCH (22:08)
[2018-10-18] MEDS: Enoxaparin Inj 40 MG/0.4 ML Syringe SQ SCH (22:09)
[2018-10-18] MEDS: Temazepam 15 MG Capsule PO PRN (23:32)
[2018-10-19] MEDS: Clotrimazole 10 MG Troche BUCCAL SCH (05:53)
[2018-10-19 08:23] VITALS: BP 113/75; TEMP 97.5; O2SAT 99
[2018-10-19] MEDS: Amoxicillin/Clavulanate 875/125 MG Tablet PO SCH (08:30)
[2018-10-19] MEDS: guaiFENesin 600 MG ER Tablet PO SCH (08:31)
[2018-10-19] MEDS: Senna/Docusate Sodium 8.6/50 MG Tablet PO SCH (08:31)
[2018-10-19] MEDS: RIFABUTIN 150 MG PO SCH (08:32)
[2018-10-19] MEDS ORDERED: Fluconazole 100 MG Tablet PO SCH (09:00)
--- NOTE | 2018-10-19 09:11 | P.DS ---
DS: Providers Date of admission: 10/12/18 21:04 Primary care physician: Oswaldo Goff MD Consults: 10/12/18 21:15 Consult to Infectious Diseases Routine Consulting Provider: Promise Davies Reason for Consultation: HIV/Neutropenic sepsis Notified:: Service Spoke with:: bharath Date Notified:: 10/12/18 Time Notified:: 22:15 Ordering Provider: CHASTITY 10/12/18 21:38 HUB Only Consult Order Routine Consulting Provider: [employer],[place] 10/13/18 16:14 Consult to Gastroenterology Routine Consulting Provider: Ivan Mcrae Reason for Consultation: Dysphagia and mid chest pain. Prior h/o esophagitis. Notified:: Office Spoke with:: FRANTZ Date Notified:: 10/13/18 Time Notified:: 16:25 Ordering Provider: CHARLENE 10/13/18 17:02 HUB Only Consult Order Routine Consulting Provider: [employer] 10/13/18 19:52 Consult to Hospitalist Routine Consulting Provider: Zeferino Johnston Reason for Consultation: to assume care 10/14 HIV, pneumonia Notified:: Service Spoke with:: Manisha Date Notified:: 10/13/18 Time Notified:: 20:08 Ordering Provider: CELINA 10/14/18 14:51 Consult to Pulmonology Routine Consulting Provider: Tray Doss Preferred Engravings Polisher:: Tray Doss Patient known to:: Tray Doss Reason for Consultation: Evaluation and mment of possible PCP. H/o Burkitts lymphoma. Notified:: Office Spoke with:: DANIAL Date Notified:: 10/14/18 Time Notified:: 15:00 Ordering Provider: CHARLENE Anticipated date of discharge: 10/19/18 Brief History from admission: 43 year old male presents to the [facility] emergency department with a history of feeling ill since or Thursday of this past week. The patient reports that he had cough, congestion, sore throat, and fever. He is unsure how high his fever has been at home. He reports having associated nausea and then vomiting that began the day he reports having 3 episodes of vomiting this morning. He denies having any diarrhea. He reports that he suffers from chronic constipation. The patient reports that his last bowel movement was Thursday or Thursday of this past week. 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 The patient's last CD4 count was less than 50. He is unsure what his viral load was. The patient is not followed by infectious disease currently. He reports that he has not been taking his HIV medications. The patient reports that today he has been having chest pain in the center of his chest, upper aspect that he describes as a tightening sensation. He reports having a headache over the right frontal sinus. He reports having a clear rhinorrhea. His cough is productive of yellow sputum. He denies having any hemoptysis. On review of systems otherwise , the patient denies having any neck pain or stiffness, abdominal pain, urinary symptoms, or focal neurologic symptoms. The patient reports having shortness of breath with exertion. The patient reports having generalized weakness. Patient update on day of discharge: Patient educated and advised on continued need for outpatient follow up. He verbalized understanding and agreed to schedule all necessary follow up appointments. DS: Diagnosis Discharge Diagnosis (1) Dara esophagitis: Status: Acute Diagnosis: Principal (2) HIV (human immunodeficiency virus infection): Status: Chronic Diagnosis: Principal (3) Dysphagia: Status: Acute Diagnosis: Principal (4) AIDS: Status: Acute Diagnosis: Principal (5) Neutropenia: Status: Acute Diagnosis: Principal DS: Summary Patient was admitted to the critical care unit. He was started on broad- spectrum antibiotics Vanc and cefepime as well as IV fluids. Infectious disease was consulted. Dr. Davies noted the patient has a history of HIV/AIDS with last CD4 count less than 20. Patient reported being noncompliant with his medications secondary to side effects. Bactrim was added by ID for PCP prophylaxis. His CT chest with IV contrast was ordered and showed mild patchy airspace consolidation in both lower lobes right greater than left. Patient was also noted to have multiple nodular airspace opacities bilaterally measuring up to 9 mm and likely represent acute infectious or inflammatory process. These were noted to be new compared to prior study from 1 year ago. Pulmonary was consulted and Dr. Doss noted that the possibility of pneumocystis pneumonia would need to be ruled out. Bronchoscopy was recommended and after risks, benefits versus alternatives were discussed with patient in detail he consented to the procedure. This was completed on 10/15 and a lot of thick mucous plugs were removed. BAL AFB, fungal smear and PCP were negative. Patient was also seen in consultation by GI due to complaint of dysphagia and history of esophagitis with Dara infection. Patient underwent an endoscopy that was unremarkable. Infectious disease reviewed all findings and IV Vanco and cefepime were discontinued. Patient was started on Augmentin for 5 more days on 10/18/2018. ID also recommended continuing Diflucan oral for C esophagitis. Pentamidine prophylaxis for PCP was administered and no further doses needed per ID. Patient was advised to follow-up on his G6PD status to decide outpatient PCP prophylaxis. Importance of continued outpatient follow- up and medication compliance was discussed with patient extensively. He was discharged on Rifabutin 300 mg p.o. daily for 1 month. He verbalized understanding of all provided instructions and agreed to schedule necessary follow-up appointments. Patient was educated about the [facility] for follow- up with her primary care provider. At time of discharge patient was hemodynamically stable. Time Spent with Patient Total time spent providing and/or coordinating discharge services: Greater than 30 minutes Status at Discharge Functional status at discharge: independent ambulation Overall status at discharge: patient is progressing back to baseline Quality: VTE Deep Vein Thrombosis/Pulmonary Embolism Present on Admission: No Exam Narrative Exam Narrative: GENERAL: well developed, no acute distress, AAOx3 SKIN: Warm and dry. HEAD: Normocephalic, atraumatic EYES: No scleral icterus. No injection or drainage. NECK: Supple, trachea midline. No JVD or lymphadenopathy. CARDIOVASCULAR: Regular rate and rhythm without murmurs, gallops, or rubs. RESPIRATORY: Breath sounds equal bilaterally. No accessory muscle use. GASTROINTESTINAL: Abdomen soft, non-tender, nondistended. MUSCULOSKELETAL: No cyanosis, or edema. Results Completed studies during hospitalization: Pending at discharge 10/15/18 13:29 Surgical [PTH] Routine Labs on day of discharge: Labs from last 24 hours 10/19/18 10/18/18 10/18/18 05:53 08:06 08:06 WBC Differential Manual diff final Seg Neuts % (Manual) 17 Band Neuts % (Manual) 16 H Lymphocytes % (Manual) 26 Monocytes % (Manual) 21 H Eosinophils % (Manual) 18 H Basophils % (Manual) 1 Metamyelocytes % (Man) 1 Abs Neuts (Manual) 0.8 L Platelet Estimate Low L Platelet Morphology Normal Ovalocytes 1+ H Sodium 144 Potassium 4.0 Chloride 108 H Carbon Dioxide 29.0 Anion Gap 7 BUN 7 Creatinine 0.72 Estimated GFR Greater than 89 POC Glucose 112 H Random Glucose 89 Calcium 8.3 L Total Bilirubin 0.2 AST 38 H ALT 21 Alkaline Phosphatase 74 Total Protein 6.1 L Albumin 2.7 L Coccidioides Ab (CF) Coccidioides IgG Ab Coccidioides IgM Ab Cryptococcus Ag Screen 10/13/18 16:30 WBC Differential Seg Neuts % (Manual) Band Neuts % (Manual) Lymphocytes % (Manual) Monocytes % (Manual) Eosinophils % (Manual) Basophils % (Manual) Metamyelocytes % (Man) Abs Neuts (Manual) Platelet Estimate Platelet Morphology Ovalocytes Sodium Potassium Chloride Carbon Dioxide Anion Gap BUN Creatinine Estimated GFR POC Glucose Random Glucose Calcium Total Bilirubin AST ALT Alkaline Phosphatase Total Protein Albumin Coccidioides Ab (CF) Negative Coccidioides IgG Ab Negative Coccidioides IgM Ab Negative Cryptococcus Ag Screen Negative Impressions ITS Impressions Chest X-Ray 10/12/18 19:07 CONCLUSION: The lungs are clear. Head CT 10/12/18 20:07 CONCLUSION: 1. No acute intracranial abnormalities. Right frontal ventriculostomy. Partial opacification right ethmoid air cells. . Chest CT 10/13/18 16:02 CONCLUSION: 1. Mild patchy airspace consolidation in both lower lobes, right greater than left. The imaging features are characteristic of an infectious or inflammatory process. 2. There are multiple nodular airspace opacities bilaterally measuring up to 9 mm that likely represent the acute infectious or inflammatory process. These are new compared to the prior study from one year ago. Recommend follow-up chest CT after appropriate therapy to confirm resolution of these nodules. Discharge Plan Discharge Disposition Patient Disposition: Disch W/Home Health Service Discharge Condition Condition: Stable Discharge Order Discharge Orders: Discharge Order (Routine); Ordered 10/19/18 Ordered By: More Hicks Discharge Details Anticipated Discharge Date: 10/19/18 Discharge Comment: G6PD pending, please follow up at [facility] for results Physicians Team ED Provider: Marina Erazo Primary Care Provider: Oswaldo Goff Attending Provider: Zeferino Johnston Other Providers: [employer],Insurance ; Promise Davies ; Ivan Mcrae ; Tray Doss Rxs /Orders / Referrals /Forms Prescriptions: New fluconazole 100 mg Tablet 100 mg PO DAILY 30 Days Qty: 30 RF: 0 amoxicillin-pot clavulanate 875-125 mg Tablet 1 tab PO Q12HR 5 Days Qty: 10 RF: 0 clotrimazole 10 mg Marisela 10 mg buccal 5 TIMES A DAY 9 Days Qty: 45 RF: 0 sennosides [Senna Lax] 8.6 mg Tablet 17.2 mg PO Q12H PRN (Reason: Moderate Constipation) Qty: 60 RF: 0 pantoprazole 40 mg Tablet,Delayed Release (Dr/Ec) 40 mg PO BID Qty: 18 RF: 0 guaifenesin [Mucinex] 600 mg Tablet Extended Release 12hr 1,200 mg PO BID Qty: 14 RF: 0 rifabutin 150 mg capsule 300 mg PO BID Qty: 120 RF: 0 Continue hydrocodone-acetaminophen 7.5-325 mg Tablet 1 tab PO Q6H PRN (Reason: Pain) RF: 0 Discontinued tenofovir disoproxil fumarate [Viread] 300 mg Tablet 300 mg PO DAILY RF: 0 lisinopril 5 mg Tablet 5 mg PO DAILY RF: 0 atovaquone [Mepron] 750 mg/5 mL Suspension 750 mg PO TID RF: 0 darunavir ethanolate [Prezista] 600 mg Tablet 600 mg PO BID RF: 0 ritonavir [Norvir] 100 mg Tablet 100 mg PO BID RF: 0 dolutegravir [Tivicay] 50 mg Tablet 50 mg PO BID RF: 0 Ambulatory Orders / Order Sets / DME: Complete Blood Count with Diff (Routine) Timeframe: 4 Weeks Location: Determined by Patient Ordered By: Libra Giordano Complete Blood Count with Diff (Routine) Timeframe: 2 Weeks Location: Determined by Patient Ordered By: Libra Barnett Giordano Comprehensive Metabolic Panel (Routine) Timeframe: 4 Weeks Location: Determined by Patient Ordered By: Libra Barnett Penelope Comprehensive Metabolic Panel (Routine) Timeframe: 2 Weeks Location: Determined by Patient Ordered By: Libra Giordano Walker With Front Wheels (1 each) (Routine) Location: Determined by Patient Ordered By: Libra Giordano Referrals: OSWALDO GOFF [Other] - See Instructions [facility], [Agency] - See Instructions (Agency will call with appointment time) [facility], [Non-Staff] - See Instructions (follow up in 1 week) Discharge Instructions Patient Printed Instructions: Fluconazole (By mouth), Clotrimazole (Into the mouth), Rifabutin (By mouth), Pantoprazole (By mouth), Senna (By mouth) Additional Instructions: Lab works every 2 weeks CBC and CMP result to PCP/ [facility] Follow up with HIV clinic 2 weeks [facility] Department at [address] [place] [address] Dr. Jing Hillman,[place] phone [phone] ( follow up for HIV resources) Status ED Status: Left Department Discharge Information Discharge Date/Time: 10/19/18 11:00
[2018-10-19 09:22] VITALS: PULSE 58; RESP 16
--- NOTE | 2018-10-19 11:00 | P.PNPL ---
Subjective Interval history: 43 YOAA male with HIV, bilat infilt had Bronch lot of thick mucous plugs removed No Fever BAL AFB,Fungal smear negative PCP Neg Denies SOB Physical Exam Vital signs: Vital Signs 10/18/18 12:00 10/18/18 16:05 10/18/18 16:20 Temperature 98.1 F 98.7 F Pulse Rate 67 66 67 Respiratory Rate 20 18 20 Blood Pressure 121/81 127/81 Pulse Oximetry 98 97 10/18/18 20:00 10/18/18 21:50 10/19/18 00:00 Temperature 97.9 F 98.0 F Pulse Rate 61 56 L 64 Respiratory Rate 18 16 18 Blood Pressure 137/79 120/72 Pulse Oximetry 100 98 10/19/18 03:06 10/19/18 03:09 10/19/18 04:00 Temperature 97.6 F Pulse Rate 55 L 65 Respiratory Rate 16 18 18 Blood Pressure 123/73 Pulse Oximetry 98 10/19/18 08:00 10/19/18 09:21 Temperature 97.5 F L Pulse Rate 65 58 L Respiratory Rate 20 16 Blood Pressure 113/75 Pulse Oximetry 99 Intake & Output 10/18/18 10/19/18 10/19/18 18:59 06:59 18:59 Intake Total 1335 / 1335 1000 / 1000 Output Total 800 / 800 Balance 1335 / 1335 200 / 200 Weight 93 kg Intake: IV 615 / 615 1000 / 1000 NS Inj 1,000 ML @ 84 mls/hr IV. 1000 / 1000 CONT .[id number] [facility] Rx#:[id number] Maxipime Inj 2,000 MG In NS Inj 100 / 100 100 ML @ 200 mls/hr IV.SIG Q8H [facility] Rx#:[id number] Vancomycin Inj 1,500 MG In NS 515 / 515 Inj 500 ML @ 257.5 mls/hr IV. SIG Q12H [facility] Rx#:[id number] Oral 720 / 720 Output: Urine 800 / 800 Other: # Voids 4 Date of Last Bowel Movement 10/17/18 10/17/18 GENERAL: WBWn AA male, NAD SKIN: Warm and dry. HEAD: Normocephalic. EYES: No scleral icterus. No injection or drainage. NECK: Supple, trachea midline. No JVD or lymphadenopathy. CARDIOVASCULAR: Regular rate and rhythm without murmurs, gallops, or rubs. RESPIRATORY: Breath sounds equal bilaterally. No accessory muscle use. GASTROINTESTINAL: Abdomen soft, non-tender, nondistended. MUSCULOSKELETAL: No cyanosis, or edema. BACK: Nontender without obvious deformity. No CVA tenderness. Assessment and Plan - Plan IMPRESSION: 1. Bilateral patchy infiltrate. Need to rule out possibility of Pneumocystis pneumonia or other opportunistic pneumonia. 2. Human immunodeficiency virus disease. 3. History of Burkitt lymphoma. 4. Dysphagia/odynophagia. PLAN: Mucomyst Nebs Mucinex bid Acapella Aerosol nebs Abx per ID DC plans underway Stable from Pulm standpoint
--- NOTE | 2018-10-30 09:57 | P.PCN ---
Date of procedure: 10/15/18 Pre-op diagnosis: Dysphagia Post-op diagnosis: same Procedure: INDICATION: Patient with AIDS and dysphagia PROCEDURE PERFORMED: upper endoscopy with biopsy The nature and risks of the procedure were explained to the patient. The risk of aspiration, perforation, bleeding, phlebitis and were explained to the patient. After informing the patient about procedure and possible complications consent was signed. history and physical were updated. ANESTHESIA: Adequate sedation was performed by anesthesia provider. PROCEDURE: Upper Endoscopy, the scope was placed in the mouth advanced under video guide to the second portion of the duodenum. The scope was then slowly withdrawn through the stomach and retro-flexion was performed to examine the cardia, the scope was then withdrawn through the esophagus with good views obtained throughout. The scope was then withdrawn out of the mouth without any immediate complications. FINDIINGS: Esophagus: Z line found to 40 cm normal esophageal mucosa. No evidence of ulcerations or erosions. Multiple biopsies obtained from the proximal mid and distal esophagus. Stomach: Direct and retroflexed views were obtained. There is normal examination. Mild this in the antrum. Biopsies obtained from the gastric antrum and body. No hiatal hernia seen. Duodenum: Bulb and second portion normal. IMPRESSION: Dysphagia with normal-appearing mucosa no evidence of CMV HSV or fungal esophagitis Mild chronic gastritis COMPLICATIONS: None BLOOD LOSS: None RECOMMENDATIONS: 1- Supportive care 2- ok to transfer to recovery area then discharge per protocol 3-follow-up results of pathology specimen 4- high-fiber diet 5- EGD can be repeated if patient's symptoms of dysphagia persist Anesthesia: MAC Surgeon: Ivan Mcrae Pathology: other (Gastric antrum, gastric body, distal, mid and proximal esophagus.) Condition: stable Disposition: floor
== END 2018-10-19 11:00 | disposition home health service (06) | DRG 970 ==
LOC: NEPC 17:13 → NEDA 21:04 → HIMC 22:30 → N05 10-13 21:57
PROVIDERS: ADMIT Internal Medicine; ATTEND Internal Medicine
DX: K29.50 Unspecified chronic gastritis without bleeding; D69.6 Thrombocytopenia, unspecified; Z85.72 Personal history of non-Hodgkin lymphomas; N17.9 Acute kidney failure, unspecified; B20 Human immunodeficiency virus [HIV] disease; E86.0 Dehydration; D64.9 Anemia, unspecified; Z92.21 Personal history of antineoplastic chemotherapy; R13.10 Dysphagia, unspecified; K59.09 Other constipation; T17.990A Other foreign object in respiratory tract, part unspecified in causing asphyxiation, initial encounter; Z87.891 Personal history of nicotine dependence; D70.3 Neutropenia due to infection; J18.9 Pneumonia, unspecified organism; R50.81 Fever presenting with conditions classified elsewhere; Z91.14 Patient's other noncompliance with medication regimen
CPT/HCPCS: 31622; 70450; 71010; 71045; 71260; 80048; 80053; 80074; 80202; 81001; 82550; 82552; 82565; 82948; 82955; 82962; 83520; 83605; 83690; 83735; 83880; 84100; 84484; 85025; 85379; 85610; 85730; 86064; 86355; 86357; 86359; 86360; 86379; 86403; 86592; 86635; 86777; 86778; 87015; 87040; 87070; 87102; 87103; 87116; 87205; 87206; 87275; 87276; 87327; 87491; 87591; 87641; 87804; 87899; 88112; 88180; 88184; 88185; 88305; 88312; 90760; 93005; 94640; 94642; 94664; 94665; 96360; 97110; 97116; 97162; 99211; 99291; C9113; G0463; J0330; J0692; J1440; J1442; J1450; J1650; J1956; J2405; J2545; J2704; J3370; J7030; J7040; J7050; Q9967